=== PATIENT | female | born 1955 | race Caucasian/White ===

== ENCOUNTER → 2018-06-18 12:00 | Outpatient (CLI) | payer BC, SELFPAY ==
--- NOTE | 2018-06-18 12:06 | RAD_ITS ---
STUDY: X-RAY - CERVICAL SPINE REASON FOR EXAM: Female, 62 years old. neck pain, right arm pain since Sep 2017 TECHNIQUE: 5 view(s) of the cervical spine were obtained. COMPARISON: None FINDINGS: Normal anterior atlantoaxial articulation. Normal odontoid process. Normal cervical lordosis. There is multi-level endplate spondylosis. Normal disc space heights. There is multi-level osseous foraminal stenosis. The soft tissue structures are unremarkable. RAD/Cerv Spine 4 or 5 Views IMPRESSION: There is multi-level osseous foraminal stenosis. Electronically Signed: Darren Ortega MD at 17:14 EDT , Service support ,
== END ==
PROVIDERS: Family Provider Internal Medicine; PCP Internal Medicine; Referring Provider Chiropractor; Visit Provider Chiropractor
DX: S13.4XXA Sprain of ligaments of cervical spine, initial encounter (principal); X58.XXXA Exposure to other specified factors, initial encounter; M48.02 Spinal stenosis, cervical region; M47.892 Other spondylosis, cervical region
CPT/HCPCS: 72050

== ENCOUNTER 2018-08-01 12:30 | Outpatient (RCR) | payer BC, SELFPAY ==
--- NOTE | 2018-07-10 17:11 | HP.PTEVAL_ITS ---
Patient's Visit Information DMITRY CHÁVEZ is a 62 year old F referred to Physical Therapy by SANA ADAME with a diagnosis of cervical radicuolpathy. Date of Evaluation: 07/10/18 Physical Therapist: Christina Villarreal - Visit Plan Frequency: 2x /Week Duration: 4 Weeks Plan: 2X/ week for 4 weeks for c-spine MT to decrease trigger points, c-spine AROM, C-spine stretching, suboccip release, c-spine traction with HEP and modalities as needed - Subjective Subjective: Pt has been having a pain on the R side of neck and starts at base of neck and up the head and down the arm to her fingers ( feels heavy) and her arm sometimes feels weak. She is having FAGAN everyday all day. Her FAGAN is on the R side of her head. This all started in the neck in Sep and has been nagging since then. In April it got a lot worse. It is always worse when she goes to lay down and can not get comfortable (it is imediately when she lays down). She had an x-ray of the c-spine. She has tried numerous pillows and has a my pillow that is full of ajustable foam. She thinks that she sleeps with head in a flexed position. She gets up 2-3 X/ night cause her neck is killing her. It goes down into her R hand everyday at some point but does not stay for a long time. Sometimes her R eye is a little blurry. Will possibly get an MRI. - Pain Neck pain Pain Intensity (Out of 10): 5 R arm pain Pain Intensity (Out of 10): 0 - Objective c-spine AROM: flexion 100%, ext 50%, R Rot 60% and L Rot 85%, and R SB 75% and L SB 90%. Posture: sits with upright posture during treatment sessions. Bicep reflex 2+/3. UE AROM: full ROM B UE's. UE MMT: flexion B 4-/5, abd B 4-/5, ER B 4-/5, IR B 4/5. Palpation: Tender over the R side paraspinals of the c- spine and occiput and B mid trap region with multiple areas of tight knots felt. Pt had improved ROM with some sub occipital relase and some c-spine distraction - Goals Goal 1:: I HEP Goal Time Frame: 2-4 Weeks Goal 2:: Increase c-spine AROM to 100% all planes with no pain Goal Time Frame: 2-4 Weeks Goal 3:: Be able to lay down to sleep at night without pain Goal Time Frame: 2-4 Weeks Goal 4:: Increase UE MMT by 1/2 muscle grade (shoulder MMT at time of eval: flexion B 4-/5, abd B 4-/5, ER B 4-/5, IR B 4/5). Goal Time Frame: 4-6 Weeks - Rehabilitation Potential Rehabilitation Potential: Good - Anticipated Interventions Patient/Client Instruction: Educate patient on: Condition, Plan of Care For the Purpose of:: To decrease pain, To increase ROM, To improve nutrient delivery to tissue, To improve muscle performance and motor function, To in crease tolerance to activity/condition/position, To improve health of tissue, To decrease soft tissue restriction, To increase flexibility/ROM Therapeutic Exercise to Include: Strength training, Postural training, Flexibilty training, Passive ROM, Active ROM, Scapular Strength/Stabilization For the Purpose of:: To decrease pain, To decrease swelling/inflammation, To increase ROM, To improve nutrient delivery to tissue, To increase oxygenation perfusion, To improve ability to perform ADL's, To increase tolerance to activity/condition/position, To decrease level of supervision to perform tasks, To improve health of tissue, To decrease soft tissue restriction, To increase flexibility/ROM Manual Therapy Techniques to Include: Passive ROM, Functional dry needling, Soft tissue mobilization For the Purpose of:: To decrease pain, To increase ROM, To improve nutrient delivery to tissue, To increase oxygenation perfusion, To improve muscle performance and motor function, To improve ability to perform ADL's, To increase tolerance to activity/condition/position, To improve health of tissue, To d ecrease soft tissue restriction, To increase flexibility/ROM Thermo therapy (hot pack): Yes Ultrasound (thermal/non thermal): Yes For the Purpose of:: To decrease pain, To increase ROM, To improve nutrient delivery to tissue, To improve muscle performance and motor function Thank you for the opportunity to evaluate your patient. For Medicare and Medicare HMO plans, please review the plan of care and approve it. It will need to be FAXED BACK to us at [phone] for Medicare purposes. Please let me know if there are questions or concerns regarding this plan of care. Physician Signature: Date:
--- NOTE | 2018-12-30 09:28 | HP.PT.NRP ---
HP - Discharge Summary (1) - Patient Information DMITRY CHÁVEZ was seen in my office for initial evaluation on 07/10/18. The following Plan of Care was established for this patient: Initial Frequency: 2x /Week Initial Duration: 4 Weeks - Anticipated Interventions Patient/Client Instruction: Educate patient on: Condition, Plan of Care For the Purpose of:: To decrease pain, To increase ROM, To improve nutrient delivery to tissue, To improve muscle performance and motor function, To increase tolerance to activity/condition/position, To improve health of tissue, To decrease soft tissue restriction, To increase flexibility/ROM Therapeutic Exercise to Include: Strength training, Postural training, Flexibilty training, Passive ROM, Active ROM, Scapular Strength/Stabilization For the Purpose of:: To decrease pain, To decrease swelling/inflammation, To increase ROM, To improve nutrient delivery to tissue, To increase oxygenation perfusion, To improve ability to perform ADL's, To increase tolerance to activity/condition/position, To decrease level of supervision to perform tasks, To improve health of tissue, To decrease soft tissue restriction, To increase flexibility/ROM Manual Therapy Techniques to Include: Passive ROM, Functional dry needling, Soft tissue mobilization For the Purpose of:: To decrease pain, To increase ROM, To improve nutrient delivery to tissue, To increase oxygenation perfusion, To improve muscle performance and motor function, To improve ability to perform ADL's, To increase tolerance to activity/condition/position, To improve health of tissue, To decrease soft tissue restriction, To increase flexibility/ROM Thermo therapy (hot pack): Yes Ultrasound (thermal/non thermal): Yes For the Purpose of:: To decrease pain, To increase ROM, To improve nutrient delivery to tissue, To improve muscle performance and motor function This patient was last seen in our office 08/06/18. Pertinent comments regarding their Physical therapy will appear below: will DC PT at this time At this point I will be discontinuing this patient from physical therapy. I would be happy to see this patient again in the future if found appropriate by the physician. Thank you! Christina Villarreal, MPT
== END 2018-08-01 19:00 | disposition home or self-care (01) ==
LOC: PT 12:30
PROVIDERS: Family Provider Internal Medicine; PCP Internal Medicine
DX: M54.12 Radiculopathy, cervical region (principal)
CPT/HCPCS: 97035; 97110; 97140; 97161; 97530

== ENCOUNTER → 2018-09-05 10:42 | Outpatient (CLI) | payer BC, SELFPAY ==
[2015-11-27 04:40] VITALS: BMI 21.0
[2018-09-05 12:02] LABS: Absolute Lymphocyte Count 1.69 X10^3/ul (0.83-4.51); Absolute Neutrophil Count 3.8 X10^3/uL (2.0-7.7); Basophil# 0.02 X10^3/uL; Basophil% 0.3 % (0-1); Eosinophil# 0.11 X10^3/uL; Eosinophils% 1.8 % (0-5); Hematocrit 37.5 % (37-47); Hemoglobin 12.4 g/dl (12.0-15.0); Lymphocyte # 1.69 X10^3/ul (4.0); Mean Corp Hgb Conc 33.1 g/gl (32-36); Mean Corpuscular Hgb 31.2 pg (27.0-32.0); Mean Corpuscular Volume 94.5 fL (81-99); Monocyte# 0.43 X10^3/uL; Monocyte% 7.1 % (0-10); Neutrophil # 3.77 X10^3/uL (2.7-7.7); Neutrophil % 62.6 % (47-70); Platelet Count 253 K/mm3 (150-450); RBC Distribution Width CV 12.4 % (11.6-14.6); Red Blood Count 3.97 M/mm3 (4.2-5.4)
[2018-09-05 12:07] LABS: POSITIVE COUNT NO; POSITIVE DIFFERENTIAL NO; POSITIVE MORPHOLOGY NO
--- OUTSIDE RECORDS SUMMARY | 2018-10-22 05:42 | XMS RPT_ITS ---
:1955 Author Organization OHIP Care Team Providers Name Role Phone CARLIE FERMIN (ROSS) Referring Unavailable CARLIE FERMIN (ROSS) Attending Unavailable DEMETRIUS JENKINS Attending Unavailable DEMETRIUS JENKINS Referring Unavailable Cady, Corie Primary Care Unavailable Allen Bae Attending Unavailable Allen Bae Referring Unavailable Cady, Corie Primary Care Unavailable CARLA MELVIN Attending Unavailable CARLA MELVIN Referring Unavailable Cady, Corie Primary Care Unavailable PROBLEMS PROBLEMS DATE TYPE CONDITION / CODE ATTENDING STATUS SOURCE 09/05/2018 Unknown D64.9 - Anemia, DEMETRIUS JENKINS Active [place] unspecified / Community D64.9(ICD-10) Hospital Repository 08/01/2018 Unknown M54.12 - CARLA MELVIN Active [place] Radiculopathy, [facility] cervical region / Hospital M54.12(ICD-10) Repository 07/16/2018 Active Encounter for NA Active [facility] screening [facility] [place] mammogram for Repository malignant neoplasm of breast / Z12.31(ICD-10) PROCEDURES PROCEDURES No Procedure Records FoundRESULTS RESULTS CBC W/DIFF, AUTOMATED Collected: 09/05/2018 Status: F Source: [place] 10:52 AM [facility] REPOSITORY TYPE CODE TESTS RESULT OUT OF RANGE REFERENCE UNITS LAB L100.1000 4.4-11.0 K/mm3 Normal WBC 6.0 LAB L100.1200 4.2-5.4 M/mm3 Low RBC 3.97 LAB L100.1300 12.0-15.0 g/dl Normal HGB 12.4 LAB L100.1400 37-47 % Normal HCT 37.5 LAB L100.1500 81-99 fL Normal MCV 94.5 LAB L100.1600 27.0-32.0 pg Normal MCH 31.2 LAB L100.1700 32-36 g/gl Normal MCHC 33.1 LAB L100.1810 11.6-14.6 % Normal RDW CV 12.4 LAB L100.1820 35.1-43.9 fl Normal RDW SD 42.0 LAB L100.1900 150-450 K/mm3 Normal PLT 253 LAB L100.2000 6.2-12.0 fl Normal MPV 11.0 LAB L100.2100 47-70 % Normal NEUT% 62.6 LAB L100.2200 19-41 % Normal LY% 28.0 LAB L100.2300 0-10 % Normal MONO% 7.1 LAB L100.2400 0-5 % Normal EO% 1.8 LAB L100.2500 0-1 % Normal BASO% 0.3 LAB L100.2550 0.0-0.9 % Normal IM GRAN % 0.200 Result Comment: IG% - Immature Granulocytes (promyelocytes, myelocytes and metamyelocytes) > 1% indicates that a LEFT SHIFT is Present. LAB L100.2620 2.0-7.7 X10 3/uL Normal Absolute Neut 3.8 LAB L100.2720 0.83-4.51 X10 3/ul Normal Absolute Lymph 1.69 Performed By: #### L100.0100 #### [facility] [address] [place] [address], [id number] CNCO Observed: 07/16/2018 Status: COMPLETED Source: [place] 11:21 AM [facility] REPOSITORY O ID: [id number] Author: Mammography Coordinator Service: (none) Author Type: Physician Type: Letter Filed: 07/17/2018 11:32 PM Note Text: July 16, 2018 PID: [id number] Sarah Staley [address] [place] [id number] Dear Ms. Staley, We are pleased to inform you that the results of your recent breast imaging exam on 07/16/2018 are normal. Your mammogram demonstrates that you have dense breast tissue, which could hide abnormalities. Dense breast tissue, in and of itself, is a relatively common condition. Therefore, this information is not provided to cause undue concern; rather, it is to raise your awareness and promote discussion with your health care provider regarding the presence of dense breast tissue in addition to other risk factors. Early detection of cancer is very important. We also understand recommendations regarding breast cancer screening are controversial. Please discuss with your primary care provider which strategy is best for you and whether a mammogram is right for you. Your imaging studies and report will be kept on file at [facility] as part of your permanent medical record and are available for your continuing care. Thank you for allowing us to help in meeting your health care needs. Sincerely, Dr. Chaidez Interpreting Radiologist [facility] (Normal over 40) GWENDOLYN Observed: 07/16/2018 Status: COMPLETED Source: [place] 11:15 AM [facility] REPOSITORY Office Visit (WOOB) SARAH STALEY ([id number]) 1955 F Date Time Provider Department 07/16/18 11:15 AM CARLIE FEMRIN ([facility]) WOANDREE During your visit today, we recorded the following information about you: Blood pressure Weight Height 102/62 52.6 kg 1.56 m Carlie Fermin APRN.CNM 07/16/2018 12:11 PM Signed Management Consultant offered: Patient declines. Sarah Staley is a 62 year old who presents for her annual gynecologic exam without complaints. Postmenopausal: Yes since age 50 (Hysterectomy in 2006) HRT use: No. Last Pap: 2017 normal HPV: 2017 negative History of abnormal pap: No Last mammogram: 2018 Done today 07/16/2018 History of abnormal mammogram: No Patient is not currently sexually active and denies history of STI's Insomnia: Yes, improving since correction in november 2017 Vasomotor symptoms: Denies Vaginal Dryness: Denies Night Sweats: Denies Exercise: Patient does not exercise at this time Diet: regular Seatbelt use: Yes Obstetric History T1 L1 SAB0 TAB0 Ectopic0 Multiple0 Live Births0 Comment: 2 grandsons PAST MEDICAL HISTORY Diagnosis Date - Allergic rhinitis due to other allergen - Generalized anxiety disorder - Irritable bowel syndrome resolved with lap miguel - Migraines - Mitral valve disorders(424.0) trivial - Osteoarthritis 10/20/2010 - Osteoporosis 10/20/2010 zipper trimmer treats - Schatzki's ring PAST SURGICAL HISTORY Procedure Laterality Date - APPENDECTOMY - CARPAL TUNNEL 2013 - CHOLECYSTECTOMY 11/2008 - COLONOSCOP W/ OR W/O [facility] SPEC 04/22/2014 Colonoscopy - COLONOSCOP W/ OR W/O [facility] SPEC 06/04/2017 Repeat 5 years - COLONOSCOPY - EGD W/O OR W/BRUSH/WASH 04/22/2014 EGD - EGD W/O OR W/BRUSH/WASH 02/11/2015 EGD - LIGATE FALLOPIAN TUBE Tubal ligation - ID ANESTH,SURGERY OF SHOULDER spur - REMOVAL ADENOIDS,PRIMARY,<12 Y/O Adenoidectomy - REMOVAL OF TONSILS,<12 Y/O Tonsillectomy - TOTAL ABDOM HYSTERECTOMY/BSO 05/15/2006 bleeding/cervix remains FAMILY HISTORY Problem Relation Age of Onset - Cancer Mother KIDNEY/brain ca dx 10-11-05 - Diabetes Father - Cancer Father STOMACH - Cancer Maternal Aunt brain - Cancer Maternal Aunt brain - Cancer Maternal Aunt lung - Cancer Maternal Aunt colon - Cancer Maternal Aunt liver - Cancer Other Maternal Cousin, Bone - Cancer Brother Lymphoma SOCIAL HISTORY Social History Substance Use Topics - Smoking status: Former Smoker Packs/day: 0.10 Years: 3.00 Quit date: 09/24/1984 - Smokeless tobacco: Never Used - Alcohol use No REVIEW OF SYSTEMS Abdomen: No abdominal pain, nausea, vomiting, diarrhea, or constipation. No bloating, early satiety, indigestion, or increased flatulence. Bladder: No dysuria, gross hematuria, urinary frequency, urinary urgency, or incontinence Breast: No breast lumps, nipple d/c, overlying skin changes, redness or skin retraction Allergies and current medication updated:Yes EXAM: BP 102/62 Ht 5' 1.417 (1.56m) Wt 116 lb (52.6kg) LMP 05/12/2006 BMI 21.62 kg/(m2). GENERAL: pleasant, female in no apparent distress HEENT: Normocephalic, atraumatic, mucus membranes moist and no lesions NECK: Supple, full range of motion, no adenopathy and thyroid normal DERMATOLOGY: Normal, without lesions, non-icteric, non-hirsute and warm BREAST: soft, non-tender, symmetric, no dominant mass, normal nipple-areolar complex, no lymphadenopathy and no nipple discharge CHEST: Clear to auscultation Normal inspiratory effort Regular rate and rhythm ABDOMEN: Benign PELVIC: external genitalia normal, normal Bartholin's glands, urethra, [place]'s glands, no vulvar lesions, no cervical lesions, good vaginal support, physiologic discharge present, normal appearing perineal body and perianal region, atrophic changes to the vaginal jones and cervix BIMANUAL: no adnexal masses, non-tender, no cervical motion tenderness and uterus surgically absent RECTOVAGINAL: rectovaginal exam negative for any masses or nodularity. NEURO: alert and oriented x3,exam grossly non-focal EXTREMITIES: normal ASSESSMENT/PLAN: 1) Health maintenance: Next PAP in 2020 at age 65 2) Mammogram up to date (07/16/2018) 3) Follow up one year or sooner as needed Kallie King Apn Student TEACHING ABBY NOTE OF PERSONAL INVOLVEMENT IN CARE: I have personally seen and examined the patient and performed the medical decision-making components. I have reviewed the midwifery student documentation and verified the findings in the note as written. Any additions or changes are noted in bold/italics. Signature: Carlie Fermin APRN.CNM Date: 07/16/2018 Time: 12:09 PM MARSHALL Purdy APRN.CNM 07/16/2018 12:11 PM Signed ACOG Screening Guidelines (2015) The following health screening schedule is recommended by the [employer] (ACOG). Some of these tests may be ordered or performed by your primary care doctor. Pap test screening The pap test looks at cells on the cervix (the opening from the vagina to the uterus) to look for cancer or pre-cancerous changes. These changes are caused by the human papillomavirus (HPV). Studies estimate that half of all women will test positive for this virus within 3 years of starting sexual activity. For young women with a normal immune system, 90% of HPV infections will resolve within 2 years. There is a vaccine available against some forms of HPV. This is recommended for girls and women age 9-26 and is a series of 3 injections over 6 months. Because this vaccine does not protect against all HPV types which can cause cervical cancer, women who received the vaccine still need pap tests. Pap smear screening should be started at age 21. The pap test should be done every 3 years from age 21-29. From age 30-65, pap smears can be done every 5 years if HPV test is negative or every 3 years if HPV testing is not done. For women over the age of 65, ACOG recommends against screening women who have had adequate prior screening and are not otherwise at high risk for cervical cancer. Women who have had a hysterectomy also do not need routine pap smear screening unless the pap smear was done for a cervical cancer or moderate to severe dysplasia. Breast cancer screening Mammogram should be performed every 1-2 years starting at age 40 and every year starting at age 50. Screening may be started earlier depending on family history. Cholesterol screening Lipid panel (cholesterol test) should be checked every 5 years starting at age 45. Diabetes screening Fasting glucose (blood sugar) test should be performed every 3 years starting at age 45. Colorectal cancer screening Starting at age 50, women should have a screening colonoscopy at least every 10 years. Screening may be started earlier depending on family history. Thyroid screening Thyroid function test (TSH) should be checked every 5 years starting at age 50. Bone mineral density screening All postmenopausal women age 65 and over and postmenopausal women with risk factors for osteoporosis should have a bone mineral density test performed. Risk factors include race, family history of osteoporosis, personal history of fractures, poor nutrition, smoking, heavy alcohol use, early menopause, low calcium intake and low body weight. Certain medical conditions and long-term use of some medications may also increase risk. Referring Provider: SELF [[id number]] Allergies As of Date: 07/16/2018 (No Known Allergies) Date Reviewed: 07/16/2018 Reviewed by: Carlie Fermin - Fully Assessed Reason for Visit: Yearly Exam [187] Primary Visit Diagnosis:Encounter for gynecological examination (general) (routine) without abnormal findings [Z01.419] Other Visit Diagnosis:Visit for screening mammogram [Z12.31] Order(s):[facility] [[id number]] Order #: [id number] FUTURE Prescriptions as of 07/16/2018 Sig: * CELEBREX ORAL Take 1 capsule by mouth once * * ZOLOFT 50 MG TABLET Take one(1) tablet daily. * THERAPEUTIC MULTIVITAMIN TABL* Take one(1) tablet daily. * CALTRATE-600 PLUS VITAMIN D3 * Take one(1) tablet daily. TEMAZEPAM 7.5 MG CAPSULE Take 7.5 mg by mouth at bedti* HYOSCYAMINE 0.125 MG SUBLINGU* Dissolve 0.125 mg under the t* DICYCLOMINE 20 MG TABLET Take 20 mg by mouth four time* Problem List As Of Date 07/16/2018 Noted Resolved GENERALIZED ANXIETY DIS [F41.1] IRRITABLE COLON [K58.9] ALLERGIC RHINITIS NEC [J30.89] Mixed hyperlipidemia [E78.2] INVALID FOR*10/23/2011 Allergic rhinitis, cause unspecified [J30.9] INVALID FOR*10/23/2011 Migraine NOS/intractable [G43.919] INVALID FOR*10/23/2011 Osteoporosis [M81.0] INVALID FOR* Osteoarthritis [M19.90] INVALID FOR* Dysphagia, unspecified(787.20) [R13.10] INVALID FOR* History of colonic polyps [Z86.010] INVALID FOR* More... Other instructions from your clinician: ACOG Screening Guidelines (2015) The following health screening schedule is recommended by the [employer] (ACOG). Some of these tests may be ordered or performed by your primary care doctor. Pap test screening The pap test looks at cells on the cervix (the opening from the vagina to the uterus) to look for cancer or pre-cancerous changes. These changes are caused by the human papillomavirus (HPV). Studies estimate that half of all women will test positive for this virus within 3 years of starting sexual activity. For young women with a normal immune system, 90% of HPV infections will resolve within 2 years. There is a vaccine available against some forms of HPV. This is recommended for girls and women age 9-26 and is a series of 3 injections over 6 months. Because this vaccine does not protect against all HPV types which can cause cervical cancer, women who received the vaccine still need pap tests. Pap smear screening should be started at age 21. The pap test should be done every 3 years from age 21-29. From age 30-65, pap smears can be done every 5 years if HPV test is negative or every 3 years if HPV testing is not done. For women over the age of 65, ACOG recommends against screening women who have had adequate prior screening and are not otherwise at high risk for cervical cancer. Women who have had a hysterectomy also do not need routine pap smear screening unless the pap smear was done for a cervical cancer or moderate to severe dysplasia. Breast cancer screening Mammogram should be performed every 1-2 years starting at age 40 and every year starting at age 50. Screening may be started earlier depending on family history. Cholesterol screening Lipid panel (cholesterol test) should be checked every 5 years starting at age 45. Diabetes screening Fasting glucose (blood sugar) test should be performed every 3 years starting at age 45. Colorectal cancer screening Starting at age 50, women should have a screening colonoscopy at least every 10 years. Screening may be started earlier depending on family history. Thyroid screening Thyroid function test (TSH) should be checked every 5 years starting at age 50. Bone mineral density screening All postmenopausal women age 65 and over and postmenopausal women with risk factors for osteoporosis should have a bone mineral density test performed. Risk factors include race, family history of osteoporosis, personal history of fractures, poor nutrition, smoking, heavy alcohol use, early menopause, low calcium intake and low body weight. Certain medical conditions and long-term use of some medications may also increase risk. Disposition: Return in 1 year (on 07/16/2019), or if symptoms worsen or fail to improve, for Annual Exam. Follow-up and Disposition History Recorded Encounter Status:Closed by CARLIE FERMIN CNM on 07/16/18 [facility] Observed: 07/16/2018 Status: F Source: [place] 10:47 AM [facility] REPOSITORY * * *Final Report* * * DATE OF EXAM: Jul 16 2018 10:47AM WOW [id number] - [facility] / PROCEDURE REASON: Encounter for screening mammogram for malignant neoplasm of breast * * * * Physician Interpretation * * * * RESULT: #[id number] - [facility] BILATERAL DIGITAL SCREENING MAMMOGRAM WITH CAD: 07/16/2018 HISTORY: Encounter For Screening Mammogram For Malignant Neoplasm Of Breast /Screening Mammogram - patient reports NO breast symptoms /Priors available for comparison. RESULT: TECHNIQUE: The study was acquired using full field digital technology and interpreted from soft copy. Current study was also evaluated with a Computer Aided Detection (CAD). Comparison is made to exams dated: 07/10/2017 mammogram, 05/17/2016 mammogram, 02/17/2015 mammogram, and 12/23/2013 mammogram - [facility]. The tissue of both breasts is heterogeneously dense. This may lower the sensitivity of mammography. No significant masses, calcifications, or other findings are seen in either breast. There has been no significant interval change. IMPRESSION: NEGATIVE There is no mammographic evidence of malignancy.A 1 year screening mammogram is recommended. Adam bedoya/josh:07/16/2018 11:21:14 [employer] Post Officer: Karen THRASHER (R)(Tr), [facility] letter sent: Normal over 40 Mammogram BI-RADS: 1 Negative Multiple national specialty organizations have released breast cancer screening guidelines for women at average risk for developing breast cancer - guidelines that are based on both evidence and opinion, yet differ on when to start and how often to screen for breast cancer. With representation from Breast Imaging, Internal Medicine, Women's Health, Family Medicine, and Medical/Surgical Oncology, the [facility] has carefully reviewed the data and reached the following consensus: 1) All women should engage in shared decision-making with their providers to decide when to start and how often to screen; 2) All women should have the opportunity to start screening mammography at age 40; 3) For women ages 45-55, we recommend annual screening mammograms; 4) For women ages 55 and over, we support both the transition from an annual to a biennial interval if this aligns more with patient's values and preferences, or continuation with annual screening; 5) All women should discuss with their providers when to stop screening mammograms. Tray Worker: Josh Transcribe Date/Time: Jul 16 2018 10:30A Dictated by: ADAM CHAIDZE MD This examination was interpreted and the report reviewed and electronically signed by: ADAM CHAIDEZ MD on Jul 16 2018 11:21AM EST [id number] Observed: 07/16/2018 Status: COMPLETED Source: [place] 10:46 AM [facility] REPOSITORY HNO ID: [id number] Author: Carlie Fermin Service: (none) Author Type: Maintenance Repairman Type: Progress Notes Filed: 07/16/2018 12:11 PM Note Text: Management Consultant offered: Patient declines. Sarah Staley is a 62 year old who presents for her annual gynecologic exam without complaints. Postmenopausal: Yes since age 50 (Hysterectomy in 2005) HRT use: No. Last Pap: 2016 normal HPV: 2017 negative History of abnormal pap: No Last mammogram: 2018 Done today 07/16/2018 History of abnormal mammogram: No Patient is not currently sexually active and denies history of STI's Insomnia: Yes, improving since correction in november 2017 Vasomotor symptoms: Denies Vaginal Dryness: Denies Night Sweats: Denies Exercise: Patient does not exercise at this time Diet: regular Seatbelt use: Yes Obstetric History T1 L1 SAB0 TAB0 Ectopic0 Multiple0 Live Births0 Comment: 2 grandsons PAST MEDICAL HISTORY Diagnosis Date - Allergic rhinitis due to other allergen - Generalized anxiety disorder - Irritable bowel syndrome resolved with lap miguel - Migraines - Mitral valve disorders(424.0) trivial - Osteoarthritis 10/20/2010 - Osteoporosis 10/20/2010 zipper trimmer treats - Schatzki's ring PAST SURGICAL HISTORY Procedure Laterality Date - APPENDECTOMY - CARPAL TUNNEL 2013 - CHOLECYSTECTOMY 11/2008 - COLONOSCOP W/ OR W/O [facility] SPEC 04/22/2014 Colonoscopy - COLONOSCOP W/ OR W/O [facility] SPEC 06/04/2017 Repeat 5 years - COLONOSCOPY - EGD W/O OR W/BRUSH/WASH 04/22/2014 EGD - EGD W/O OR W/BRUSH/WASH 02/11/2015 EGD - LIGATE FALLOPIAN TUBE Tubal ligation - ID ANESTH,SURGERY OF SHOULDER spur - REMOVAL ADENOIDS,PRIMARY,<12 Y/O Adenoidectomy - REMOVAL OF TONSILS,<12 Y/O Tonsillectomy - TOTAL ABDOM HYSTERECTOMY/BSO 05/15/2006 bleeding/cervix remains FAMILY HISTORY Problem Relation Age of Onset - Cancer Mother KIDNEY/brain ca dx 10-11-05 - Diabetes Father - Cancer Father STOMACH - Cancer Maternal Aunt brain - Cancer Maternal Aunt brain - Cancer Maternal Aunt lung - Cancer Maternal Aunt colon - Cancer Maternal Aunt liver - Cancer Other Maternal Cousin, Bone - Cancer Brother Lymphoma SOCIAL HISTORY Social History Substance Use Topics - Smoking status: Former Smoker Packs/day: 0.10 Years: 3.00 Quit date: 09/24/1984 - Smokeless tobacco: Never Used - Alcohol use No REVIEW OF SYSTEMS Abdomen: No abdominal pain, nausea, vomiting, diarrhea, or constipation. No bloating, early satiety, indigestion, or increased flatulence. Bladder: No dysuria, gross hematuria, urinary frequency, urinary urgency, or incontinence Breast: No breast lumps, nipple d/c, overlying skin changes, redness or skin retraction Allergies and current medication updated:Yes EXAM: BP 102/62 Ht 5' 1.417 (1.56m) Wt 116 lb (52.6kg) LMP 05/12/2006 BMI 21.62 kg/(m2). GENERAL: pleasant, female in no apparent distress HEENT: Normocephalic, atraumatic, mucus membranes moist and no lesions NECK: Supple, full range of motion, no adenopathy and thyroid normal DERMATOLOGY: Normal, without lesions, non-icteric, non-hirsute and warm BREAST: soft, non-tender, symmetric, no dominant mass, normal nipple-areolar complex, no lymphadenopathy and no nipple discharge CHEST: Clear to auscultation Normal inspiratory effort Regular rate and rhythm ABDOMEN: Benign PELVIC: external genitalia normal, normal Bartholin's glands, urethra, [place]'s glands, no vulvar lesions, no cervical lesions, good vaginal support, physiologic discharge present, normal appearing perineal body and perianal region, atrophic changes to the vaginal jones and cervix BIMANUAL: no adnexal masses, non-tender, no cervical motion tenderness and uterus surgically absent RECTOVAGINAL: rectovaginal exam negative for any masses or nodularity. NEURO: alert and oriented x3,exam grossly non-focal EXTREMITIES: normal ASSESSMENT/PLAN: 1) Health maintenance: Next PAP in 2020 at age 65 2) Mammogram up to date (07/16/2018) 3) Follow up one year or sooner as needed Kallei King Apn Student TEACHING CLAY PIGEON LOADER-CNM NOTE OF PERSONAL INVOLVEMENT IN CARE: I have personally seen and examined the patient and performed the medical decision-making components. I have reviewed the midwifery student documentation and verified the findings in the note as written. Any additions or changes are noted in bold/italics. Signature: Carlie Fermin APRN.CNM Date: 07/16/2018 Time: 12:09 PM Carlie Fermin APRN.CNM INITAL EVALUATION (1) Observed: 07/12/2018 Status: F Source: [place] - PT 2:15 PM [facility] REPOSITORY [facility] [address] [place], [place] [id number] Fax REHABILITATION SERVICES INITIAL EVALUATION MR#: [id number] Acct: [id number] Name: SARAH STALEY Rep #: [id number] : 1955 62 From: Christina Villarreal MPT Referring Dr.: Status: REG RCR Insurance: [facility] SELF PAY INSURANCE Patient's Visit Information SARAH STALEY is a 62 year old F referred to Physical Therapy by SANA ADAME with a diagnosis of cervical radicuolpathy. Date of Evaluation: 07/10/18 Physical Therapist: Christina Villarreal - Visit Plan Frequency: 2x /Week Duration: 4 Weeks Plan: 2X/ week for 4 weeks for c-spine MT to decrease trigger points, c-spine AROM, C-spine stretching, suboccip release, c-spine traction with HEP and modalities as needed - Subjective Subjective: Pt has been having a pain on the R side of neck and starts at base of neck and up the head and down the arm to her fingers ( feels heavy) and her arm sometimes feels weak. She is having FAGAN everyday all day. Her FAGAN is on the R side of her head. This all started in the neck in Sep and has been nagging since then. In April it got a lot worse. It is always worse when she goes to lay down and can not get comfortable (it is imediately when she lays down). She had an x-ray of the c-spine. She has tried numerous pillows and has a my pillow that is full of ajustable foam. She thinks that she sleeps with head in a flexed position. She gets up 2-3 X/ night cause her neck is killing her. It goes down into her R hand everyday at some point but does not stay for a long time. Sometimes her R eye is a little blurry. Will possibly get an MRI. - Pain Neck pain Pain Intensity (Out of 10): 5 R arm pain Pain Intensity (Out of 10): 0 - Objective c-spine AROM: flexion 100%, ext 50%, R Rot 60% and L Rot 85%, and R SB 75% and L SB 90%. Posture: sits with upright posture during treatment sessions. Bicep reflex 2+/3. UE AROM: full ROM B UE's. UE MMT: flexion B 4-/5, abd B 4-/5, ER B 4-/5, IR B 4/5. Palpation: Tender over the R side paraspinals of the c-spine and occiput and B mid trap region with multiple areas of tight knots felt. Pt had improved ROM with some sub occipital relase and some c-spine distraction - Goals Goal 1:: I HEP Goal Time Frame: 2-4 Weeks Goal 2:: Increase c-spine AROM to 100% all planes with no pain Goal Time Frame: 2-4 Weeks Goal 3:: Be able to lay down to sleep at night without pain Goal Time Frame: 2-4 Weeks Goal 4:: Increase UE MMT by 1/2 muscle grade (shoulder MMT at time of eval: flexion B 4-/5, abd B 4-/5, ER B 4-/5, IR B 4/5). Goal Time Frame: 4-6 Weeks - Rehabilitation Potential Rehabilitation Potential: Good - Anticipated Interventions Patient/Client Instruction: Educate patient on: Condition, Plan of Care For the Purpose of:: To decrease pain, To increase ROM, To improve nutrient delivery to tissue, To improve muscle performance and motor function, To increase tolerance to activity/condition/position, To improve health of tissue, To decrease soft tissue restriction, To increase flexibility/ROM Therapeutic Exercise to Include: Strength training, Postural training, Flexibilty training, Passive ROM, Active ROM, Scapular Strength/Stabilization For the Purpose of:: To decrease pain, To decrease swelling/inflammation, To increase ROM, To improve nutrient delivery to tissue, To increase oxygenation perfusion, To improve ability to perform ADL's, To increase tolerance to activity/condition/position, To decrease level of supervision to perform tasks, To improve health of tissue, To decrease soft tissue restriction, To increase flexibility/ROM Manual Therapy Techniques to Include: Passive ROM, Functional dry needling, Soft tissue mobilization For the Purpose of:: To decrease pain, To increase ROM, To improve nutrient delivery to tissue, To increase oxygenation perfusion, To improve muscle performance and motor function, To improve ability to perform ADL's, To increase tolerance to activity/condition/position, To improve health of tissue, To decrease soft tissue restriction, To increase flexibility/ROM Thermo therapy (hot pack): Yes Ultrasound (thermal/non thermal): Yes For the Purpose of:: To decrease pain, To increase ROM, To improve nutrient delivery to tissue, To improve muscle performance and motor function Thank you for the opportunity to evaluate your patient. For Medicare and Medicare HMO plans, please review the plan of care and approve it. It will need to be FAXED BACK to us at [phone] for Medicare purposes. Please let me know if there are questions or concerns regarding this plan of care. Physician Signature: Date: <Electronically signed by Christina Villarreal MPT> 07/12/18 1415 CC: SANA ADAME; Corie Lazar DO Signed For Medicare only, by signing this I certify the plan of care. Physicians Signature Date CERV SPINE 4 OR 5 Observed: 06/18/2018 Status: F Source: ANGELIQUE VIEWS 12:06 PM [facility] REPOSITORY [facility] Imaging Services [address] [place] [address] Cerv Spine 4 or 5 Views MR#: [id number] Acct: [id number] Name: SARAH STALEY Rep #: [id number] : 1955 F 62 From: Darren Ortega MD PCP: Corie Lazar DO Status: REG CLI Study: Cerv Spine 4 or 5 Views Date of Exam: 06/18/18 Exam# [id number] Ordering Dr: Allen Bae STUDY: X-RAY - CERVICAL SPINE REASON FOR EXAM: Female, 62 years old. neck pain, right arm pain since Sep 2017 TECHNIQUE: 5 view(s) of the cervical spine were obtained. COMPARISON: None FINDINGS: Normal anterior atlantoaxial articulation. Normal odontoid process. Normal cervical lordosis. There is multi-level endplate spondylosis. Normal disc space heights. There is multi-level osseous foraminal stenosis. The soft tissue structures are unremarkable. RAD/Cerv Spine 4 or 5 Views IMPRESSION: There is multi-level osseous foraminal stenosis. Electronically Signed: Darren Ortega MD at 17:14 EDT , Service support , CC: Allen Bae; Corie Lazar DO Tray Worker: Signed ALLERGIES ALLERGIES DATE TYPE / CODE NAME / CODE REACTION SEVERITY SOURCE 03/20/2014 Drug No Known Unknown [facility] Allergy/416 Allergies/F99709 Hospital 640207(SNOM 0388(RXNORM) Repository ED CT) Drug NO KNOWN [facility] Class/91041 ALLERGIES Main [place] 1003(SNOMED Repository CT) ENCOUNTERS ENCOUNTERS ADMIT/DISCHARGE ACCOUNT ADMITTING ENCOUNTER LOCATION SOURCE NUMBER CLASS 09/05/2018 [id number] [facility] ing:MTLAB Repository 08/01/2018 [id number] [facility] ing:PT Repository 07/16/2018/07/17/[id number] Repository 07/16/2018/07/16/[id number] Repository 06/18/2018 [id number] [facility] ing:RAD Repository PAYERS PAYERS ENCOUNTER GUARANTOR PAYER SUBSCRIBER SOURCE 09/05/2018 SARAH A [id number] Primary SARAH A LOWERDOB: Angelique ROMO Insurance:ANTHEMPolic [id number] [facility], y Number: [facility] [id number]: [id number] Repository Date:3669-26-86MH [address] () [address], [place] [address]BB: 09/05/2018 Secondary NOT GIVENUNK [place] Insurance:SELF PAY [facility]: Effective Repository Date:2018-09-05 08/01/2018 SARAH A [id number] Primary SARAH A LOWERDOB: Angelique ROMO Insurance:ANTHEMPolic [id number] [facility], y Number: [facility] [id number]: [id number] Repository Date:1175-83-26WX [address] () [address], [place] [address]SP: 08/01/2018 Secondary NOT GIVENUNK Angelique Insurance:SELF PAY [facility] Number: Effective Repository Date:2018-07-09 06/18/2018 SARAH A [id number] Primary SARAH A LOWERDOB: Angelique ROMO Insurance:ANTHEMPolic [id number] [facility], y Number: [facility] [id number]: [id number] Repository Date:2040-79-23[address] () [address], [place] [address]TJ: 06/18/2018 Secondary NOT GIVENUNK Angelique Insurance:SELF PAY [facility] Number: Effective Repository Date:2018-06-18
== END ==
PROVIDERS: Family Provider Internal Medicine; PCP Internal Medicine; Referring Provider Internal Medicine Rheumatology; Visit Provider Internal Medicine Rheumatology
DX: D64.9 Anemia, unspecified (principal)
CPT/HCPCS: 36415; 85025

== ENCOUNTER → 2018-12-13 13:54 | Outpatient (CLI) | payer BC, SELFPAY ==
[2018-12-12 14:35] VITALS: BMI 21.0
[2018-12-13 14:08] LABS: Bacteria 0 SEEN /hpf (None Seen); Mucous, Urine 0 SEEN /hpf (<or=2+); Red Blood Cells-Urine 0 SEEN /hpf (0-5); Squamous Epithelial Cells - UA 0 SEEN /hpf (5-10)
[2018-12-13 14:25] LABS: Color, Urine Yellow (Yellow); Glucose, Dipstick Normal (Normal); Ketone-Dipstick Negative (Negative); Leukocyte Esterase-Dipstick 500 /ul (Negative); Nitrite-Dipstick Negative (Negative); Occult Blood-Urine 150 /ul (Negative); Protein-Dipstick 30 mg/dl (Negative); Specific Gravity, Urine 1.005 (1.002-1.030); Urine Bilirubin Dipstick Negative (Negative); Urine Clarity Clear (Clear); Urine Urobilinogen Normal (Normal)
[2018-12-13 14:29] LABS: White Blood Cells >100 SEEN /hpf (0-5)
== END ==
PROVIDERS: Family Provider Internal Medicine; PCP Internal Medicine; Referring Provider Physician Assistant; Visit Provider Physician Assistant
DX: R35.0 Frequency of micturition (principal); R30.0 Dysuria
CPT/HCPCS: 81001; 87086; 87088; 87186

== ENCOUNTER 2020-04-04 14:09 | Emergency (ER) | payer OTHER, SELFPAY ==
[2018-12-12 14:35] VITALS: BMI 21.0
[2020-04-04 14:10] VITALS: BP 141/88; PULSE 123; RESP 21; TEMP 36.1; O2SAT 95; BMI 21.7
--- NOTE | 2020-04-04 14:11 | EKG12_ITS ---
Test Reason : Blood Pressure : / mmHG Vent. Rate : 098 BPM Atrial Rate : 098 BPM P-R Int : 124 ms QRS Dur : 094 ms QT Int : 360 ms P-R-T Axes : 060 001 045 degrees QTc Int : 459 ms Normal sinus rhythm Incomplete right bundle branch block Borderline ECG Confirmed by LOYD BAKER, HANNAH ([id number]), fan mail editor IRAIDA TURK ([id number]) on 04/05/2020 1:16:57 PM Referred By: MACIEJ Confirmed By:HANNAH HARP MD
[2020-04-04] MEDS: MethylPREDNISolone 125 MG/2 ML Vial IV (14:18)
[2020-04-04] MEDS: DiphenhydrAMINE 50 MG/ML Syringe 25 MG IV (14:18)
[2020-04-04] MEDS: Famotidine 200 MG/20 ML MDV 20 MG in 0.9% Normal Saline (Pres. free 8 ML 300 MG IV (14:27)
--- NOTE | 2020-04-04 14:28 | ED.DCSUM_ITS ---
History of Present Illness Chief Complaint: Allergic Reaction Detail of Chief Complaint: Done by 3 hornets or yellowjacket 30 minutes prior to arrival Informant: Patient, Significant Other Onset: Today Context: Sudden Onset Timing: Continuous Quality: Throat swelling, pruritic erythematous raised generalized rash Location: Throat and generalized Current Severity: Severe Maximum Severity: Severe Worsened by: Hymenoptera envenomation Relieved by: Nothing Associated Symptoms: Difficulty swallowing and paretic generalized erythematous blanching rash Narrative: Patient is a 64-year-old woman who presents after she was stung by either 3 hornets or 3 yellow jackets. She presents because of generalized erythematous rash. She has since developed swelling of her throat and difficulty swallowing. Patient states he was not able to lie back on the examination cot because she developed difficulty swallowing and became anxious. She sat up immediately. Patient denies prior allergy to yellow jackets or hornets. She has no food allergies. She has no allergies to medication. She denies history of coronary disease. She denies history of hypertension. She denies orthostatic symptoms. She denies nausea or vomiting. She denies wheezing. Prior similar symptoms: No Recent Illness/Hospitalization: No - Past Medical History (1) No significant past medical history Status: Acute Past Medical History - Allergies and Home Meds Allergies/Adverse Reactions: Allergies bee venom protein (honey bee) Allergy (Verified 04/04/20 14:12) Anaphylaxis Primary Care Physician: Corie Lazar DO [Primary Care Provider] - As Needed Prior records reviewed: No Past Medical History: None Surgical History: appendectomy, cholecystectomy Lives: With Family Smoking Status: Never smoker Alcohol: Rare Drugs: None Review of Systems General: Denies: Chills, Fever, Malaise Eyes: Denies: Visual changes - bilaterally, Blurred Vision - bilaterally ENT: Reports: Sore throat. Denies: Bilateral ear pain, Rhinorrhea Cardiovascular: Denies: Chest pain, Palpitations Respiratory: Reports: Dyspnea. Denies: Cough, Sputum, Dyspnea on exertion Gastrointestinal: Denies: Abdominal pain, Nausea, Vomiting, Diarrhea, Melena, Hematochezia Musculoskeletal: Denies: Myalgias, Arthralgias, Neck pain, Back pain, Swelling, Extremity Pain Skin: Reports: Rash. Denies: Abscess, Wounds Neurological: Denies: Headache, Weakness, Parasthesia Psych: Reports: Anxiety Endocrine: Denies: Polyuria, Polydipsia Hematologic: Denies: Easy bruising, Easy bleeding Allergy: Reports: Uticaria, Swelling of the mouth Physical Exam Vital Signs/Narrative: Vital Signs Temp Pulse Resp BP Pulse Ox 04/04/20 14:10 97 F L 123 H 21 H 141/88 H 95 Inital Vital Signs reviewed: Yes General: Well nourished, Well developed, Acute Distress Head: Normocephalic, Atraumatic Eyes: Perrl, EOMI. Negative for: Pale conjunctiva, Scleral icterus ENT: Moist mucous membranes, No rhinorrhea, TM's clear, - - There is no angioedema of the lips or tongue. There may be slight swelling of the uvula. Trachea is midline. There is harsh sounds with inspiration and expiration. There is no true stridor. There is no cervical lymphadenopathy. Neck: Supple, Nontender, No lymphadenopathy, No JVD Cardiovascular: Regular rhythm, No murmurs, Normal S1, Normal S2, Tachycardia Respiratory: No distress, CTA bilaterally, Chest nontender Abdomen: Soft, Nontender, Nondistended, Normal bowel sounds Rectal: Deferred Back: Nontender, Normal Inspection Extremities: Nontender, No edema Skin: No Trauma, Rash - Blanching erythematous generalized rash with urticaria.. Negative for: Cyanosis, Diaphoresis Neurological: Alert, Oriented x3, Cranial nerves II-XII grossly intact, Normal Strength, Normal Sensation, Normal Gait Psychological: - - Patient is anxious. Diagnostic/Tx/Re-eval - Rhythm Strip Rhythm Strip: Sinus Tach Rate: 126 Ectopy: None - EKG Initial EKG Interpretation: Sinus Rhythm - Sinus rhythm with a ventricular rate of 98. KS interval 124 ms. QRS duration 94 ms. QT duration 360 ms. Norman is normal. There is an RR prime in V1 and V2. Findings are suggestive of incomplete right bundle branch block. - Medical Decision Making And has a generalized anaphylactic reaction to hymenoptera envenomation. She was treated with epinephrine followed by IV Benadryl, Pepcid and Solu-Medrol. Patient and were informed that she would be observed for minimum 4 to 6 hours. Because most pharmacies in [place] close a 6 PM a prescription was written for appendectomy in the event that she is able to go home. Patient was reassessed at 1455. Patient is resting comfortably. The erythematous blanching generalized rash with urticaria has improved markedly 80 to 90%. There is no abnormal respiratory sounds with inspiration or expiration over the trachea. Patient's lips in retrospect were swollen. Her lips are much smaller at this point as well as her tongue. She had - Critical Care Time Critical care time (excluding procedures): 30-74 minutes, Discussing w/Patient &/or Family/Clay Modeler ED Disposition - Plan for ED Patient: Disposition: Home or Assisted Living Diagnosis: Anaphylaxis due to hymenoptera venom Instructions: ED BEE STING General Allergic Rxn Prescriptions: Prednisone [Deltasone] 40 mg PO DAILY #10 tab Transmission Status: Received by [id number] Epi Pen (for allergic rxn) 0.3 mg IM X1 #1 syringe Transmission Status: Pending to [id number] Famotidine [Pepcid] 20 mg PO BID #8 tab Transmission Status: Received by [id number] Referrals: Corie Lazar DO [Primary Care Provider] - As Needed
[2020-04-04 16:09] VITALS: BP 129/72; PULSE 91; RESP 18; O2SAT 99
--- NOTE | 2020-04-04 17:31 | ED.VIS.GEN ---
History of Present Illness Chief Complaint: Allergic Reaction Informant: Patient, Significant Other Past Medical History - Allergies and Home Meds Allergies/Adverse Reactions: Allergies bee venom protein (honey bee) Allergy (Verified 04/04/20 14:12) Anaphylaxis Primary Care Physician: Corie Lazar DO [Primary Care Provider] - As Needed Surgical History: appendectomy, cholecystectomy Lives: With Family Smoking Status: Never smoker Alcohol: Rare Drugs: None Physical Exam Vital Signs/Narrative: Vital Signs Temp Pulse Resp BP Pulse Ox 04/04/20 16:09 91 18 129/72 H 99 04/04/20 14:10 97 F L 123 H 21 H 141/88 H 95 Diagnostic/Tx/Re-eval - Rhythm Strip Rhythm Strip: Sinus Tach Rate: 126 Ectopy: None ED Disposition - Plan for ED Patient: Disposition: Home or Assisted Living Diagnosis: Anaphylaxis due to hymenoptera venom Instructions: ED BEE STING General Allergic Rxn Prescriptions: Prednisone [Deltasone] 40 mg PO DAILY #10 tab Transmission Status: Received by [id number] Epi Pen (for allergic rxn) 0.3 mg IM X1 #1 syringe Transmission Status: Received by [id number] Famotidine [Pepcid] 20 mg PO BID #8 tab Transmission Status: Received by [id number] Referrals: Corie Lazar DO [Primary Care Provider] - As Needed
[2020-04-04 18:05] VITALS: BP 134/77; PULSE 79; RESP 18; TEMP 36.8; O2SAT 98
== END 2020-04-04 18:17 | disposition home or self-care (01) ==
PROVIDERS: Emergency Provider Student in an Organized Health Care Education/Training Program; PCP Internal Medicine
DX: T63.441A Toxic effect of venom of bees, accidental (unintentional), initial encounter (principal); T78.2XXA Anaphylactic shock, unspecified, initial encounter; X58.XXXA Exposure to other specified factors, initial encounter
CPT/HCPCS: 93005; 96374; 96375; 99284; J7030; A4216; J3490

== ENCOUNTER 2020-04-05 16:55 | Emergency (ER) | payer OTHER, SELFPAY ==
[2020-04-04 14:10] VITALS: BMI 21.7
[2020-04-05 16:56] VITALS: BP 136/71; PULSE 90; RESP 17; TEMP 36.6; O2SAT 97; BMI 21.5
--- NOTE | 2020-04-05 17:19 | ED.VIS.GEN ---
History of Present Illness Chief Complaint: Allergic Reaction Informant: Patient Onset: Yesterday Current Severity: Mild Maximum Severity: Moderate Narrative: Patient presents secondary to lip swelling. She was seen in the ER yesterday after being stung by bees. She was discharged home with prescription for EpiPen, Pepcid, and prednisone. Patient states that her right hand still seems to be swollen today. She noted some redness across her chest and this afternoon she felt like her lips were swelling. She denies any tongue swelling or difficulty swallowing. She used her EpiPen approximate hour prior to arrival. Lips are improved at this time. - Past Medical History (1) No significant past medical history Status: Acute Past Medical History - Allergies and Home Meds Allergies/Adverse Reactions: Allergies bee venom protein (honey bee) Allergy (Verified 04/05/20 16:56) Anaphylaxis Primary Care Physician: Corie Lazar DO [Primary Care Provider] - Prior records reviewed: Yes Surgical History: appendectomy, cholecystectomy Lives: Spouse/ Significant Other Smoking Status: Never smoker Review of Systems General: Denies: Chills, Fever Eyes: Denies: Visual changes - bilaterally ENT: Denies: Bilateral ear pain Cardiovascular: Denies: Chest pain Respiratory: Denies: Dyspnea, Cough Gastrointestinal: Denies: Abdominal pain, Vomiting Genitourinary: Denies: Dysuria Musculoskeletal: Reports: Swelling. Denies: Extremity Pain Skin: Reports: Rash Neurological: Denies: Headache Hematologic: Denies: Easy bruising, Easy bleeding Allergy: Denies: Uticaria Physical Exam Vital Signs/Narrative: Vital Signs Temp Pulse Resp BP Pulse Ox 04/05/20 16:56 97.8 F 90 17 136/71 H 97 Inital Vital Signs reviewed: Yes General: Well nourished, Well developed Head: Normocephalic ENT: Moist mucous membranes, - - No lip edema noted at this time. Tongue is not edematous. Posterior pharynx exam is normal. Patient is speaking with a strong voice and tolerating secretions well. Neck: Supple Cardiovascular: Regular rate, Regular rhythm Respiratory: No distress, CTA bilaterally Abdomen: Soft, Nontender Extremities: Nontender Skin: - - Generalized erythema noted on the upper chest. Neurological: Alert, Oriented x3 Psychological: Normal affect Diagnostic/Tx/Re-eval - Medical Decision Making Patient was given Benadryl and Solu-Medrol here. She was observed for nearly 3 hours with no return of symptoms. She has not been taking Benadryl at home but states she will stop and get some on the way home tonight. She will be given a another prescription for an EpiPen since she will have one with her. ED Disposition - Plan for ED Patient: Disposition: Home or Assisted Living Diagnosis: Allergic reaction Instructions: ED BEE STING General Allergic Rxn Prescriptions: Epi Pen (for allergic rxn) 0.3 mg IM X1 PRN #1 syringe PRN Reason: Anaphylaxis Transmission Status: [id number] Referrals: Corie Lazar DO [Primary Care Provider] - 3-5 Days
[2020-04-05] MEDS: MethylPREDNISolone 125 MG/2 ML Vial 60 MG IV (17:51)
[2020-04-05] MEDS: DiphenhydrAMINE 50 MG/ML Syringe 25 MG IV (17:52)
[2020-04-05 18:44] VITALS: BP 112/68; PULSE 66; RESP 15; O2SAT 99
[2020-04-05 19:31] VITALS: BP 105/60; PULSE 72; RESP 16; O2SAT 98
[2020-04-05 19:44] VITALS: BP 105/60; PULSE 72; RESP 16; O2SAT 98
== END 2020-04-05 19:45 | disposition home or self-care (01) ==
PROVIDERS: Emergency Provider Emergency Medicine; PCP Internal Medicine
DX: T63.441A Toxic effect of venom of bees, accidental (unintentional), initial encounter (principal); M79.89 Other specified soft tissue disorders; L53.9 Erythematous condition, unspecified; Y92.9 Unspecified place or not applicable
CPT/HCPCS: 96374; 96375; 99285

== ENCOUNTER → 2020-07-29 09:27 | Outpatient (CLI) | payer OTHER, SELFPAY ==
--- NOTE | 2020-07-29 09:45 | RAD_ITS ---
PROCEDURE: Fluoroscopic guided right shoulder Injection DATE: 07/29/2020 INDICATION: Female, 64 years old. Chronic pain. PHYSICIAN: Jefferson Tuttle M.D. MEDICATIONS: 12 mg of PREDNISONE and 4 cc of 1% LIDOCAINE. 2% lidocaine administered subcutaneously for local anesthesia. ACCESS SITE: Right shoulder. NEEDLE: 22-gauge spinal needle. FLUOROSCOPY TIME (if supplied): (0:36) minutes/seconds FINDINGS: The risks, benefits, and alternatives to the procedure were explained to the patient. The specific risks of bleeding, infection, and neurovascular injury were detailed and accepted. Witnessed informed consent was obtained. A 22-gauge spinal needle was positioned under radiographic fluoroscopic localization . Approximately 2 cc of ISOVUE-300 instilled for localization purposes. Medication was then injected. The patient tolerated the procedure well without any immediate complications. RAD/Inj/Asp Tyrese Jt Should/Hip/Knee IMPRESSION: 1. Successful fluoroscopic guided right shoulder injection. Electronically Signed: Jefferson Tuttle, at 11:18 EST , Service support ,
== END ==
PROVIDERS: PCP Internal Medicine; Referring Provider Specialist; Visit Provider Specialist
DX: M75.41 Impingement syndrome of right shoulder (principal)
CPT/HCPCS: 20610; 77002; Q9965; J0702

== ENCOUNTER → 2020-09-23 13:40 | Outpatient (CLI) | payer OTHER, SELFPAY ==
--- NOTE | 2020-09-23 13:45 | BI_ITS ---
MAMMOGRAPHY - BILATERAL SCREENING REASON FOR EXAM: Female, 64 years old. Routine annual screening examination. PERTINENT HISTORY: Non-contributory. History of remote left breast aspiration. TECHNIQUE: Digital bilateral breast israel (3D mammographic acquisition) in the CC and MLO projections. 2-D mediolateral oblique (MLO) and craniocaudad (CC) views of both breasts were obtained. CAD: Full Field Digital Mammography with Computer Added Detection was performed. COMPARISON: Comparison is made with prior outside examination dated 06/04/2019. FINDINGS: Breast Composition: The breasts are extremely dense, which lowers the sensitivity of mammography. There are no dominant masses or suspicious calcifications. No other significant abnormalities are identified. There has been no significant change since the prior study. BI/SCREEN MAMM (CAD) W/ISRAEL BILAT IMPRESSION: Stable bilateral screening mammogram. Yearly follow-up mammogram recommended. (A) ASSESSMENT CATEGORY: BIRADS Category 1: Negative. A letter regarding these results will be sent to the patient by the facility within 30 days. Approximately 10% of breast cancers are not detected by mammography. A normal mammogram should not delay biopsy of a clinically suspicious abnormality. [id number] Electronically Signed: Jefferson Tuttle, at 11:22 EST , Service support ,
== END ==
PROVIDERS: PCP Internal Medicine; Referring Provider Nurse Practitioner Family; Visit Provider Nurse Practitioner Family
DX: Z12.31 Encounter for screening mammogram for malignant neoplasm of breast (principal)
CPT/HCPCS: 77063; 77067

== ENCOUNTER → 2021-04-14 11:33 | Outpatient (CLI) | payer MEDICARE, OTHER, SELFPAY ==
[2021-04-14 12:50] LABS: Erythrocyte Sedimentation Rate 8 mm/hr (0-30)
[2021-04-14 12:52] LABS: Absolute Lymphocyte Count 1.86 X10^3/uL (0.83-4.51); Absolute Neutrophil Count 4.5 X10^3/uL (2.0-7.7); Basophil# 0.04 X10^3/uL; Basophil% 0.6 % (0-1); Eosinophil# 0.18 X10^3/uL; Eosinophils% 2.5 % (0-5); Hematocrit 38.5 % (37-47); Hemoglobin 12.3 g/dL (12.0-15.0); Lymphocyte # 1.86 X10^3/ul (0.83-4.51); Lymphocyte % 26.3 % (19-41); Mean Corp Hgb Conc 31.9 g/dL (32-36); Mean Corpuscular Hgb 30.6 pg (27.0-32.0); Mean Corpuscular Volume 95.8 fL (81-99); Mean Platelet Vol. 11.2 fl (6.2-12.0); Monocyte# 0.47 X10^3/uL; Monocyte% 6.6 % (0-10); NRBC Flagged by Analyzer 0 % (0-5); Neutrophil # 4.49 X10^3/uL (2.7-7.7); Neutrophil % 63.6 % (47-70); Platelet Count 255 K/mm3 (150-450); RBC Distribution Width CV 12.6 % (11.6-14.6); RBC Distribution Width SD 44.3 fl (35.1-43.9); Red Blood Count 4.02 M/mm3 (4.2-5.4); White Blood Count 7.1 K/mm3 (4.4-11.0)
[2021-04-14 13:17] LABS: CRP 5.46 mg/L (0.0-3.0); Rheumatoid Factor < 10.0 IU/mL (<15); Uric Acid 4.2 mg/dL (2.6-6.0)
[2021-04-15 20:32] LABS: ANTINUCLEAR ANTIBODIES DIRECT Negative (Negative)
== END ==
PROVIDERS: PCP Internal Medicine; Referring Provider Podiatrist Foot & Ankle Surgery; Visit Provider Podiatrist Foot & Ankle Surgery
DX: R20.2 Paresthesia of skin (principal); M79.672 Pain in left foot
CPT/HCPCS: 36415; 84550; 85025; 85652; 86038; 86140; 86431

== ENCOUNTER → 2021-05-17 11:01 | Outpatient (CLI) | payer MEDICARE, OTHER, SELFPAY ==
--- NOTE | 2021-05-17 11:04 | RAD_ITS ---
STUDY: X-RAY - CERVICAL SPINE REASON FOR EXAM: Female, 65 years old. Other cervical disc degeneration, unspecified cervical region TECHNIQUE: 6 view(s) of the cervical spine were obtained. COMPARISON: Comparison is made with prior study dated 06/18/2015. FINDINGS: Normal anterior atlantoaxial articulation. Normal odontoid process. Normal cervical lordosis. Normal vertebral bodies and endplates. Mild degree of disc space narrowing at the C5-C6 level. Normal visualized intervertebral neuroforamina. The soft tissue structures are unremarkable. RAD/Cerv Spine Obl/Flex/Ext Comp IMPRESSION: Mild degree of disc space narrowing at the C5-C6 level. Electronically Signed: Jefferson Tuttle MD at 11:14 EDT , Service support ,
== END ==
PROVIDERS: PCP Internal Medicine; Referring Provider Anesthesiology Pain Medicine; Visit Provider Anesthesiology Pain Medicine
DX: M50.30 Other cervical disc degeneration, unspecified cervical region (principal)
CPT/HCPCS: 72052

== ENCOUNTER → 2021-06-15 13:06 | Outpatient (CLI) | payer MEDICARE, OTHER, SELFPAY ==
[2021-06-15 13:51] LABS: Absolute Lymphocyte Count 2.93 X10^3/uL (0.83-4.51); Basophil# 0.07 X10^3/uL; Basophil% 0.7 % (0-1); Eosinophil# 0.17 X10^3/uL; Eosinophils% 1.8 % (0-5); Hematocrit 42.1 % (37-47); Hemoglobin 13.5 g/dL (12.0-15.0); Lymphocyte # 2.93 X10^3/ul (0.83-4.51); Lymphocyte % 30.2 % (19-41); Mean Corp Hgb Conc 32.1 g/dL (32-36); Mean Corpuscular Hgb 30.4 pg (27.0-32.0); Mean Corpuscular Volume 94.8 fL (81-99); Mean Platelet Vol. 10.7 fl (6.2-12.0); Monocyte# 0.51 X10^3/uL; Monocyte% 5.3 % (0-10); NRBC Flagged by Analyzer 0 % (0-5); Neutrophil # 5.97 X10^3/uL (2.7-7.7); Neutrophil % 61.5 % (47-70); Platelet Count 352 K/mm3 (150-450); RBC Distribution Width CV 12.6 % (11.6-14.6); RBC Distribution Width SD 43.8 fl (35.1-43.9); Red Blood Count 4.44 M/mm3 (4.2-5.4); White Blood Count 9.7 K/mm3 (4.4-11.0)
[2021-06-15 14:35] LABS: ALB/GLOB Ratio 0.9 RATIO (0.9-2.4); AST(SGOT) 16 U/L (15-37); Alanine Aminotransfer ALT/SGPT 22 U/L (13-56); Albumin, Serum 3.6 g/dL (3.2-5.0); Alkaline Phosphatase 88 U/L (45-117); Anion Gap 4 (5-15); BUN 13 mg/dL (7-18); BUN/Creat Ratio 24.2 RATIO (10-20); Calcium,Total 9.3 mg/dL (8.5-10.1); Chloride 104 mmol/L (98-107); Creatinine, Serum 0.54 mg/dL (0.55-1.02); EST Glomerular Filtration Rate 121 mL/min (>60); Est Glom Filt Rate - Afr Amer 146 mL/min (>60); Globulin 4.1 g/dL (2.2-4.2); Glucose 133 mg/dL (74-106); Protein, Total 7.7 g/dL (6.4-8.2); Sodium Level 139 mmol/L (136-145); Thyroid Stim Hormone (TSH) 1.74 uIU/mL (0.358-3.74)
== END ==
PROVIDERS: PCP Internal Medicine; Visit Provider Internal Medicine
DX: R00.0 Tachycardia, unspecified (principal)
CPT/HCPCS: 36415; 80053; 84443; 85025

== ENCOUNTER → 2021-06-23 10:00 | Outpatient (CLI) | payer MEDICARE, OTHER, SELFPAY ==
--- NOTE | 2021-06-23 10:02 | ECHOD_ITS ---
Reason For Study: RBBB Procedure This was a 2D Doppler, Color Flow transthoracic echocardiogram. Exam performed in department. Left Ventricle Normal left ventricle. Left ventricular systolic function is normal. The estimated ejection fraction is 60 %. No regional wall motion abnormalities noted. Right Ventricle Normal RV size. Normal systolic function. Atria Normal left atrium. Normal right atrium. Mitral Valve Normal mitral valve. Trivial eccentric mitral valve insufficiency. Tricuspid Valve Normal tricuspid valve. Mild tricuspid valve insufficiency. Aortic Valve Trisinus/trileaflet aortic valve. Pulmonic Valve Normal pulmonic valve. Great Vessels Normal aortic root. The pulmonary artery is normal size. Normal inferior vena cava. Pericardium/Pleural No pericardial effusion. MMode/2D Measurements & Calculations LVIDd: 4.7 cm IVSd: 0.97 cm Ao root diam: 2.7 cm LVIDs: 2.9 cm LVPWd: 1.0 cm RVDd: 2.3 cm FS: 38.1 % LAV(MOD-bp): 27.4 ml LA A4 area: 11.4 cm2 LA dimension(2D): 2.9 cm LAV(MOD-bp) Indexed: 18.1 ml/m2 LAV(MOD-sp2): 26.8 ml LAV(MOD-sp4): 26.8 ml RA A4 area: 9.3 cm2 Time Measurements MV dec time: 0.19 sec Doppler Measurements & Calculations MV E max ian: 49.0 cm/sec Lat Peak E' Ian: 7.4 cm/sec Med Peak E' Ian: 6.3 cm/sec MV A max ian: 69.5 cm/sec E/E' lat: 6.6 E/E' med: 7.8 MV E/A: 0.71 Ao V2 max: 109.4 cm/sec LV V1 max: 91.8 cm/sec PA V2 max: 92.4 cm/sec Ao max P.8 mmHg LV V1 max P.4 mmHg TR max ian: 203.6 cm/sec TR max P.6 mmHg ECHO/Echo Complete Interpretation Summary Normal left ventricle. Left ventricular systolic function is normal. The estimated ejection fraction is 60 %. Mild tricuspid valve insufficiency. Ordering Physician: Corie Lazar Referring Physician: Corei Lazar Performed By: Ashleigh Kim RDCS, RVT
== END ==
PROVIDERS: PCP Internal Medicine; Referring Provider Internal Medicine; Visit Provider Internal Medicine
DX: R00.2 Palpitations (principal); I45.10 Unspecified right bundle-branch block
CPT/HCPCS: 93225; 93226; 93306

== ENCOUNTER 2021-07-06 02:18 | Emergency (ER) | payer MEDICARE, OTHER, SELFPAY ==
[2021-07-06 02:19] VITALS: BP 143/82; PULSE 74; RESP 18; TEMP 36.7; O2SAT 97; BMI 22.3
[2021-07-06 02:24] VITALS: O2SAT 99
--- NOTE | 2021-07-06 02:33 | EKG12_ITS ---
Test Reason : CP Blood Pressure : / mmHG Vent. Rate : 072 BPM Atrial Rate : 072 BPM P-R Int : 128 ms QRS Dur : 092 ms QT Int : 392 ms P-R-T Axes : 038 001 039 degrees QTc Int : 429 ms Normal sinus rhythm Normal ECG Confirmed by LOYD BAKER, HANNAH ([id number]), editor producer IRAIDA TURK ([id number]) on 07/12/2021 6:28:30 AM Referred By: MELISSA Confirmed By:HANNAH HARP MD
[2021-07-06 02:58] LABS: Absolute Lymphocyte Count 3.11 X10^3/uL (0.83-4.51); Absolute Neutrophil Count 3.9 X10^3/uL (2.0-7.7); Basophil# 0.04 X10^3/uL; Basophil% 0.5 % (0-1); Eosinophil# 0.23 X10^3/uL; Eosinophils% 2.9 % (0-5); Hematocrit 38.3 % (37-47); Hemoglobin 12.7 g/dL (12.0-15.0); Lymphocyte # 3.11 X10^3/ul (0.83-4.51); Lymphocyte % 39.1 % (19-41); Mean Corp Hgb Conc 33.2 g/dL (32-36); Mean Corpuscular Hgb 30.8 pg (27.0-32.0); Mean Platelet Vol. 10.2 fl (6.2-12.0); Monocyte# 0.67 X10^3/uL; Monocyte% 8.4 % (0-10); NRBC Flagged by Analyzer 0 % (0-5); Neutrophil # 3.88 X10^3/uL (2.7-7.7); Neutrophil % 48.7 % (47-70); Platelet Count 288 K/mm3 (150-450); RBC Distribution Width CV 12.8 % (11.6-14.6); RBC Distribution Width SD 43.9 fl (35.1-43.9); Red Blood Count 4.12 M/mm3 (4.2-5.4)
--- NOTE | 2021-07-06 03:03 | EX.ED.DYSGE1 ---
HPI History of Present Illness Chief Complaint: Palpitations Narrative Narrative: Patient is a 65-year-old female who states that she felt palpitations that woke her from sleep this evening. She states she is dealt with these over the past 4 to 5 months and recently had a Holter monitor study. She denies any new medications any excessive stimulant use or illicit drug use. She states that based on the return of the palpitations she was concerned and comes to the hospital for evaluation. She does state by the time she arrived to the hospital her symptoms have spontaneously resolved. She reports she cannot get in to see a supervisor tubing until September. [facility] Medical History Anemia Arthritis GERD (gastroesophageal reflux disease) history of spur removal Irregular heart beat Home Medications epinephrine 0.3 mg IM X1 #1 syringe 04/04/20 [Rx Last Taken Unknown] pantoprazole 40 mg PO BID 04/04/20 [History Last Taken Unknown] epinephrine 0.3 mg IM X1 PRN #1 syringe 04/05/20 [Rx Last Taken Unknown] celecoxib 200 mg PO DAILY 07/06/21 [History Last Taken Unknown] Allergy/AdvReac Type Severity Reaction Status Date / Time bee venom protein (honey bee) Allergy Anaphylaxis Verified 07/06/21 02:22 gabapentin Allergy DIZZY AND Verified 07/06/21 02:22 LIGHTHEADED Surgical History History of appendectomy History of hysterectomy Social History (Updated 12/12/18 @ 14:52 by Tremayne GARNER, PA) Smoking Status: Former smoker alcohol intake: never ROS ROS ED Constitutional Constitutional ED: Denies chills or fever(s) ENT ENT ED: Denies sore throat Cardiovascular Cardiovascular: Reports palpitations and racing heartbeat; Denies chest pain Respiratory/Chest Respiratory/Chest: Denies cough or dyspnea Gastrointestinal Gastrointestinal: Denies abdominal pain, diarrhea, nausea or vomiting Genitourinary Genitourinary ED: Denies dysuria Musculoskeletal Musculoskeletal: Denies myalgias Integumentary Denies rash Neurologic Neurologic: Denies headache(s) Hematologic/Lymphatic Hematologic/Lymphatic: Denies easy bleeding or easy bruising EXAM Physical Exam Const Vital Signs: 07/06/21 02:19 07/06/21 02:24 Temperature 98.1 F Temperature Source Temporal Pulse Rate 74 Respiratory Rate 18 Respiratory Effort Normal Non-Labored Blood Pressure 143/82 H Blood Pressure Mean 102 Pulse Ox 97 99 Oxygen Delivery Method Room Air Room Air Positive well nourished and well developed General Appearance ED: well developed HEENT Reports moist mucous membranes Eyes PERRL and EOMs intact bilaterally Neck supple Resp normal respiratory effort and clear to auscultation bilaterally Cardio regular rate and regular rhythm Rate: other Other Details: Radial pulses are +2/4 by letter there equal and symmetric GI normal to inspection, nondistended, normoactive bowel sounds, non-tender and non-distended GI Narrative: No voluntary guarding or rigidity no pulsatile mass Auscultation: normoactive bowel sounds Palpation: soft Extremity normal to inspection Extremity Narrative: No asymmetric edema no pitting edema negative home and sign bilaterally Neuro oriented x3 and CN's II-XII intact bilaterally Sensorium / Orientation: alert Motor Exam: strength 5/5 throughout Psych mental status grossly normal Skin no rashes or lesions noted MDM MDM MDM Narrative Medical decision making narrative: Patient presented to the ER with stable vitals and spontaneous resolution of her symptoms. With her report of palpitations a basic cardiac workup was obtained. Her lab work revealed no clinically significant findings and there is no signs of heart damage as her troponin was normal. The patient was kept on the heart monitor and remained in sinus rhythm for her ER stay. Therefore this time with a negative workup and patient maintaining normal sinus rhythm without any obvious dysrhythmia or ectopy noted there is no need for further evaluation and she is safe for discharge. Lab Data Attestation: I reviewed the patient's lab results. Labs: Laboratory Results - last 24 hr 07/06/21 07/06/21 02:20 02:20 WBC 8.0 RBC 4.12 L Hgb 12.7 Hct 38.3 MCV 93.0 MCH 30.8 MCHC 33.2 RDW Std Deviation 43.9 RDW Coeff of Osei 12.8 Plt Count 288 MPV 10.2 Immature Gran % (Auto) 0.400 Neut % (Auto) 48.7 Lymph % (Auto) 39.1 Parke % (Auto) 8.4 Eos % (Auto) 2.9 Baso % (Auto) 0.5 Absolute Neuts (auto) 3.9 Absolute Lymphs (auto) 3.11 Nucleated RBC % 0 Sodium 139 Potassium 3.9 Chloride 102 Carbon Dioxide 32.0 Anion Gap 5 BUN 14 Creatinine 0.65 Estim Creat Clear Calc 68.25 Est GFR (MDRD) Af Amer 118 Est GFR (MDRD) Non-Af 97 BUN/Creatinine Ratio 21.6 H Glucose 112 H Calcium 9.1 Magnesium 2.4 Troponin I High Sens 6 TSH 3.89 H Discharge Plan Triage Chief Complaint: Palpitations ED Provider: Darell Davidson Dx/Rx/DC Orders Clinical Impression: Heart palpitations Instructions: ED About Arrhythmias, ED Palpitations Prescriptions: No Action pantoprazole 40 MG tablet 40 mg PO BID RF: 0 epinephrine 0.3 MG syringe 0.3 mg IM X1 Qty: 1 RF: 0 epinephrine 0.3 MG syringe 0.3 mg IM X1 PRN (Reason: Anaphylaxis) Qty: 1 RF: 0 celecoxib 200 mg capsule 200 mg PO DAILY RF: 0 Primary Care Provider: Corie Lazar Referrals: Corie Lazar DO [Primary Care Provider] - Disposition Disposition: Home, Self Care
[2021-07-06 03:18] LABS: Anion Gap 5 (5-15); BUN 14 mg/dL (7-18); BUN/Creat Ratio 21.6 RATIO (10-20); Calcium,Total 9.1 mg/dL (8.5-10.1); Chloride 102 mmol/L (98-107); Creatinine, Serum 0.65 mg/dL (0.55-1.02); EST Glomerular Filtration Rate 97 mL/min (>60); Est Glom Filt Rate - Afr Amer 118 mL/min (>60); Estimated Creatinine Clearance 68.25 ml/min; Glucose 112 mg/dL (74-106); Magnesium 2.4 mg/dL (1.6-2.6); Potassium 3.9 mmol/L (3.5-5.1); Sodium Level 139 mmol/L (136-145); Thyroid Stim Hormone (TSH) 3.89 uIU/mL (0.358-3.74); Troponin-I HS 6 pg/mL (3.0-54.0)
[2021-07-06 03:49] VITALS: BP 121/79; PULSE 84; RESP 16; O2SAT 99
--- NOTE | 2021-07-06 03:49 | ED.RN ---
THIS NURSE REVIEWED D/C INSTRUCTIONS WITH PT. PT VERBALIZED UNDERSTANDING OF INSTRUCTIONS. IV D/C. IV CATHETER INTACT. PT TOLERATED WELL. PT DENIES FURTHER NEEDS OR QUESTIONS AT THIS TIME. PT AMBULATES FROM ROOM ON OWN WITHOUT ASSISTANCE FROM STAFF
== END 2021-07-06 03:50 | disposition home or self-care (01) ==
PROVIDERS: Emergency Provider Emergency Medicine; PCP Internal Medicine
DX: R00.2 Palpitations (principal); K21.9 Gastro-esophageal reflux disease without esophagitis; M19.90 Unspecified osteoarthritis, unspecified site; Z79.899 Other long term (current) drug therapy; Z87.891 Personal history of nicotine dependence
CPT/HCPCS: 80048; 83735; 84443; 84484; 85025; 93005; 99283; A4216

== ENCOUNTER → 2021-07-12 06:33 | Outpatient (CLI) | payer MEDICARE, OTHER, SELFPAY ==
--- NOTE | 2021-07-12 17:31 | STRESSREP ---
Stress Test Report Exercise myocardial perfusion stress test. 65-year-old lady with a history of ventricular bigeminy. Stress protocol: Resting EKG demonstrated sinus rhythm with a rate of 65 bpm normal intervals are noted resting blood pressure is 122/78 mmHg. The patient exercised according to regular Omar protocol for total duration of 7 minutes completing 1 minute into stage III of the Omar protocol the maximum heart rate attained was 173 bpm which was 111% maximum corrected heart rate the maximum workload was 10.1 metabolic equivalents. At rest there were no ST or T wave changes noted to suggest ischemia and at peak exercise nonspecific ST changes were noted with did not meet the criteria for ischemia. The peak rate pressure product was 21,880. Myocardial perfusion protocol. 11.0 mCi of technetium 99m sestamibi was injected at rest. The patient exercised according to regular Omar protocol for total duration of 7 minutes and at peak exercise 33.6 mCi of technetium 99m sestamibi was injected stress images were obtained stress and rest images were reconstructed and compared in the short axis vertical long horizontal long axis. Gated images were also obtained for Perfusion SPECT analysis: Review of the stress images demonstrate normal uptake of tracer noted in all areas of the myocardium. The resting images similarly demonstrate normal uptake of tracer noted in all areas of the myocardium. No areas of reversibility are noted suggest ischemia and no previous infarct is noted. Gated SPECT analysis: The gated ejection fraction is 72%. Conclusion: Normal exercise myocardial perfusion stress test at a high workload. Preserved ejection fraction.
== END ==
PROVIDERS: PCP Internal Medicine; Referring Provider Internal Medicine; Visit Provider Internal Medicine
DX: R94.31 Abnormal electrocardiogram [ECG] [EKG] (principal); I49.8 Other specified cardiac arrhythmias
CPT/HCPCS: 78452; 93017; A9500; A4216

== ENCOUNTER → 2021-07-18 | Outpatient (CLI) | payer MEDICARE, OTHER, SELFPAY ==
[2021-07-18 10:30] LABS: D-Dimer Quantitative (DVT/PE) 0.37 FEU/ug/m (0.27-0.49)
== END | disposition home or self-care (01) ==
LOC: LABSPEC 10:12
PROVIDERS: PCP Internal Medicine; Referring Provider Internal Medicine; Visit Provider Internal Medicine
DX: R06.02 Shortness of breath (principal)
CPT/HCPCS: 85379

== ENCOUNTER → 2021-09-15 06:38 | Outpatient (CLI) | payer MEDICARE, OTHER, SELFPAY ==
--- NOTE | 2021-09-15 06:47 | MRI_ITS ---
STUDY: MRI CERVICAL SPINE WITHOUT CONTRAST REASON FOR EXAM: Female, 65 years old. CERVICAL SPINAL STENOSIS TECHNIQUE: Standardized fat and water weighted pulse sequences were obtained in the sagittal and axial planes. COMPARISON: None FINDINGS: Normal foramen magnum and brainstem-cervical cord junction. Normal cervical lordosis. C2-3: There is minimal disc space narrowing and endplate spondylosis. There is no significant central canal or foraminal stenosis C3-4: There is minimal disc space narrowing and endplate spondylosis. There is no significant central canal or foraminal stenosis C4-5: There is minimal disc space narrowing and endplate spondylosis. There is no significant central canal or foraminal stenosis C5-6: There is minimal disc space narrowing and endplate spondylosis. There is no significant central canal or foraminal stenosis C6-7: There is minimal disc space narrowing and endplate spondylosis. There is no significant central canal or foraminal stenosis C7-T1: There is minimal disc space narrowing and endplate spondylosis. There is no significant central canal or foraminal stenosis Normal cervical cord. MRI/Spine Cervical (Routine) IMPRESSION: Mild degenerative changes without significant central canal or foraminal stenosis. Electronically Signed: Kenney Atkins MD at 15:58 EST Tel , Service support ,
== END ==
PROVIDERS: PCP Internal Medicine; Referring Provider Nurse Practitioner Family; Visit Provider Nurse Practitioner Family
DX: M48.9 Spondylopathy, unspecified (principal); M46.96 Unspecified inflammatory spondylopathy, lumbar region; M54.12 Radiculopathy, cervical region; M48.02 Spinal stenosis, cervical region; M47.812 Spondylosis without myelopathy or radiculopathy, cervical region
CPT/HCPCS: 72141

== ENCOUNTER 2021-10-14 17:22 | Outpatient (CLI) | payer MEDICARE, OTHER, SELFPAY ==
--- NOTE | 2021-10-14 17:27 | CT_ITS ---
EXAM: CT ABDOMEN WITHOUT INTRAVENOUS CONTRAST CLINICAL INDICATION: RUQ PAIN TECHNIQUE: Helically acquired images were obtained of the abdomen without intravenous contrast. CTDIvol = ( 8.60 ) mGy, DLP = ( 272.86 ) mGycm This CT exam was performed using one or more of the following dose reduction techniques: automated exposure control, adjustment of the mA and/or kV according to patient size, and/or use of iterative reconstruction technique. This report was created using [employer] report generation technology. CONTRAST: Oral Readi-CAT COMPARISON: CT abdomen pelvis 03/20/2014 FINDINGS: LOWER THORAX: Unremarkable. Lung bases are clear. No cardiomegaly. No significant pericardial effusion. LIVER: Unremarkable. Homogeneous. GALLBLADDER AND BILE DUCTS: Absent gallbladder. No intra- or extrahepatic biliary ductal dilation. PANCREAS: Unremarkable. No focal cystic mass. SPLEEN: Calcified granulomas of the spleen which is not enlarged. ADRENALS: Unremarkable. No nodules. KIDNEYS AND URETERS: Exophytic cyst laterally involving left kidney measuring up to 2.3 cm. Normal renal size and position. No hydronephrosis. STOMACH AND BOWEL: Unremarkable. No stomach or bowel distention. No focal inflammatory change. INTRAPERITONEAL SPACE: No free air or free fluid. BONES/JOINTS: Unremarkable. No suspicious lytic or blastic abnormality. SOFT TISSUES: Unremarkable. No discrete abdominal wall hernia. VASCULATURE: Unremarkable. Abdominal aorta is non-dilated. LYMPH NODES: No enlarged lymph nodes. OTHER FINDINGS: No inflammatory or obstructive changes about. CT/Abdomen WITH ORAL Cont Only IMPRESSION: No acute or inflammatory disease or bowel obstruction. Old granulomatous disease. Calcified granulomas of the spine. Electronically Signed: Darell Barba MD at 0:30 EST Tel , Service support ,
== END 2021-10-14 23:59 | disposition short-term general hospital (02) ==
LOC: CT 17:23
PROVIDERS: PCP Internal Medicine; Referring Provider Internal Medicine; Visit Provider Internal Medicine
DX: R10.11 Right upper quadrant pain (principal)
CPT/HCPCS: 74150

== ENCOUNTER → 2022-05-08 | Outpatient (CLI) | payer MEDICARE, OTHER, SELFPAY ==
--- NOTE | 2022-05-08 08:13 | US_ITS ---
STUDY: ABDOMINAL ULTRASOUND - RIGHT UPPER QUADRANT REASON FOR VISIT: Female, 66 years old EPIGASTRIC PAIN TECHNIQUE: Ultrasound evaluation of the right upper quadrant was performed with real-time and static garcia-scale imaging. TECHNICAL QUALITY: Adequate. COMPARISON: None. FINDINGS: Liver: The liver measures 16.0 cm. There is increased echogenicity consistent with fatty infiltration. The bile ducts are within normal limits. There is hepatic color flow. The direction of portal flow is hepatopetal. There is no demonstrated mass lesion. Gallbladder: The patient is status post cholecystectomy. s. Common Bile Duct (C.B.D.): The common bile duct measures 12 mm. Pancreas: Normal size of the head, body and tail of the pancreas. There is normal echogenicity of the pancreas. There is no demonstrated pancreatic mass or cyst. Right Kidney: Normal size of the right kidney. The right kidney measures 10.4 cm. Normal renal cortex. The right cortex measures 2.0 cm. There is no demonstrated renal mass or cyst. There is no right hydronephrosis. US/Abdomen Limited IMPRESSION: Status post cholecystectomy with fatty infiltration of the liver. Electronically Signed: Chemo Gray MD at 9:04 EDT ,
[2022-05-08 08:25] LABS: Absolute Lymphocyte Count 2.02 X10^3/uL (0.83-4.51); Absolute Neutrophil Count 4.1 X10^3/uL (2.0-7.7); Basophil# 0.04 X10^3/uL; Basophil% 0.6 % (0-1); Eosinophil# 0.12 X10^3/uL; Eosinophils% 1.8 % (0-5); Hematocrit 40.9 % (37-47); Hemoglobin 13.2 g/dL (12.0-15.0); Lymphocyte # 2.02 X10^3/ul (0.83-4.51); Mean Corp Hgb Conc 32.3 g/dL (32-36); Mean Corpuscular Hgb 31.2 pg (27.0-32.0); Mean Corpuscular Volume 96.7 fL (81-99); Monocyte# 0.42 X10^3/uL; Monocyte% 6.2 % (0-10); NRBC Flagged by Analyzer 0 % (0-5); Neutrophil % 60.8 % (47-70); Platelet Count 282 K/mm3 (150-450); RBC Distribution Width CV 12.5 % (11.6-14.6); RBC Distribution Width SD 44.4 fl (35.1-43.9); Red Blood Count 4.23 M/mm3 (4.2-5.4); White Blood Count 6.7 K/mm3 (4.4-11.0)
[2022-05-08 09:06] LABS: ALB/GLOB Ratio 0.9 RATIO (0.9-2.4); AST(SGOT) 16 U/L (15-37); Alanine Aminotransfer ALT/SGPT 24 U/L (13-56); Albumin, Serum 3.3 g/dL (3.2-5.0); Alkaline Phosphatase 63 U/L (45-117); Anion Gap 5 (5-15); BUN 16 mg/dL (7-18); BUN/Creat Ratio 25.8 RATIO (10-20); Calcium,Total 8.6 mg/dL (8.5-10.1); Chloride 106 mmol/L (98-107); Creatinine, Serum 0.62 mg/dL (0.55-1.02); EST Glomerular Filtration Rate 102 mL/min (>60); Est Glom Filt Rate - Afr Amer 123 mL/min (>60); Globulin 3.7 g/dL (2.2-4.2); Glucose 106 mg/dL (74-106); Lipase 93 U/L (73-393); Potassium 4.1 mmol/L (3.5-5.1); Sodium Level 140 mmol/L (136-145); Thyroid Stim Hormone (TSH) 1.52 uIU/mL (0.358-3.74)
== END | disposition home or self-care (01) ==
PROVIDERS: PCP Internal Medicine
DX: R10.13 Epigastric pain (principal); K76.0 Fatty (change of) liver, not elsewhere classified; Z90.49 Acquired absence of other specified parts of digestive tract
CPT/HCPCS: 36415; 76705; 80053; 83690; 84443; 85025

== ENCOUNTER → 2022-06-19 | Outpatient (CLI) | payer MEDICARE, OTHER, SELFPAY ==
--- NOTE | 2022-06-19 06:30 | ECHOD_ITS ---
Reason For Study: Chest Tightness Procedure This was a 2D Doppler, Color Flow transthoracic echocardiogram. Exam performed in department. Left Ventricle Normal LV size. Left ventricular systolic function is normal. The estimated ejection fraction is 55 %. No regional wall motion abnormalities noted. Right Ventricle Normal RV size. Normal systolic function. Atria Normal left atrium. Normal right atrium. Mitral Valve Normal mitral valve. Tricuspid Valve Normal tricuspid valve. Mild tricuspid valve insufficiency. Pulmonary artery systolic pressure is 30 mmHg. Aortic Valve Normal aortic valve. Trisinus/trileaflet aortic valve. Pulmonic Valve Normal pulmonic valve. Great Vessels Normal aortic root. The pulmonary artery is normal size. Normal inferior vena cava. Pericardium/Pleural No pericardial effusion. MMode/2D Measurements & Calculations LVIDd: 5.2 cm IVSd: 0.87 cm Ao root diam: 3.1 cm LVIDs: 3.6 cm LVPWd: 0.77 cm LA dimension: 3.3 cm RVDd: 3.2 cm FS: 30.7 % LAV(MOD-bp): 28.3 ml LA A4 area: 13.9 cm2 RA A4 area: 13.8 cm2 LAV(MOD-bp) Indexed: 18.5 ml/m2 LAV(MOD-sp2): 22.7 ml LAV(MOD-sp4): 35.7 ml Time Measurements MV dec time: 0.20 sec Doppler Measurements & Calculations MV E max ian: 53.9 cm/sec Lat Peak E' Ian: 9.7 cm/sec Med Peak E' Ian: 8.3 cm/sec MV A max ian: 87.7 cm/sec E/E' lat: 5.6 E/E' med: 6.5 MV E/A: 0.61 MV V2 max: 104.1 cm/sec MV P1/2t max ian: 74.5 cm/sec Ao V2 max: 135.1 cm/sec MV max P.3 mmHg MV P1/2t: 72.6 msec Ao max P.3 mmHg MV V2 mean: 45.7 cm/sec MV dec slope: 300.6 cm/sec2 Ao V2 mean: 88.5 cm/sec MV mean P.0 mmHg MVA(P1/2t): 3.0 cm2 Ao mean P.7 mmHg MV V2 VTI: 21.6 cm Ao V2 VTI: 27.8 cm LV V1 max: 95.6 cm/sec PA V2 max: 94.8 cm/sec TR max ian: 226.6 cm/sec LV V1 max P.7 mmHg TR max P.7 mmHg LV V1 mean P.0 mmHg LV V1 mean: 66.5 cm/sec LV V1 VTI: 21.8 cm ECHO/Echo Complete Interpretation Summary Normal LV size. Left ventricular systolic function is normal. The estimated ejection fraction is 55 %. Structurally normal valves. Ordering Physician: Corie Lazar Referring Physician: Corie Lazar Performed By: Juan Grace RCS
--- NOTE | 2022-06-19 11:13 | STRESSREP ---
Stress Test Report Exercise myocardial perfusion stress test. 66-year-old lady with a history of chest pain. Stress protocol: Resting EKG demonstrates normal sinus rhythm with a rate of 61 bpm normal intervals are noted resting blood pressure is 120/72 mmHg. The patient exercised according to the regular Omar protocol for total duration of 9 minutes completing stage III of the Omar protocol the maximum heart rate attained 150 bpm which was 97% of max impacted heart rate the maximum workload was 10.1 metabolic equivalents. At rest there were no ST or T wave changes noted suggest ischemia and at peak exercise there were no ST or T wave changes noted to suggest ischemia. No clinical angina was noted the test was terminated due to completion of the protocol. Myocardial perfusion protocol. 11.4 mCi of technetium 99m sestamibi was injected at rest. The patient exercised according to regular Omar protocol for total duration of 9 minutes and at peak exercise 31.8 mCi of technetium 99m sestamibi was injected stress images were obtained stress and rest images were reconstructed and compared in the short axis vertical long and horizontal long axis. Gated images were also obtained to Perfusion SPECT analysis: Review of the stress images demonstrate normal uptake of tracer noted in all areas of the myocardium. The resting images similar demonstrate normal uptake of tracer noted in all areas of the myocardium. No reversibility is noted to suggest ischemia and no previous infarct is noted. Gated SPECT analysis: The gated ejection fraction is 67%. Conclusion: Normal exercise myocardial perfusion stress test at a high workload. No clinical angina noted. Preserved ejection fraction.
== END | disposition home or self-care (01) ==
LOC: CVS 06:25
PROVIDERS: PCP Internal Medicine; Referring Provider Internal Medicine; Visit Provider Internal Medicine
DX: R07.89 Other chest pain (principal)
CPT/HCPCS: 78452; 93017; 93306; A9500; A4216

== ENCOUNTER → 2022-07-31 | Outpatient (CLI) | payer MEDICARE, OTHER, SELFPAY ==
--- NOTE | 2022-07-31 08:46 | EKG12_ITS ---
Test Reason : PRE OP Blood Pressure : / mmHG Vent. Rate : 074 BPM Atrial Rate : 074 BPM P-R Int : 126 ms QRS Dur : 092 ms QT Int : 382 ms P-R-T Axes : 049 007 023 degrees QTc Int : 424 ms Normal sinus rhythm Normal ECG Confirmed by LOYD BAKER, HANNAH ([id number]), dictionary editor IRAIDA TURK ([id number]) on 08/01/2022 8:50:29 AM Referred By: Hever Clemente Confirmed By:HANNAH HARP MD
[2022-07-31 09:31] LABS: Hematocrit 38.7 % (37-47); Hemoglobin 12.6 g/dL (12.0-15.0); Mean Corp Hgb Conc 32.6 g/dL (32-36); Mean Corpuscular Hgb 31.5 pg (27.0-32.0); Mean Corpuscular Volume 96.8 fL (81-99); Mean Platelet Vol. 10.3 fl (6.2-12.0); Platelet Count 262 K/mm3 (150-450); RBC Distribution Width CV 12.7 % (11.6-14.6); RBC Distribution Width SD 45.5 fl (35.1-43.9); White Blood Count 6.3 K/mm3 (4.4-11.0)
[2022-07-31 09:58] LABS: Anion Gap 5 (5-15); BUN 10 mg/dL (7-18); BUN/Creat Ratio 19.6 RATIO (10-20); Chloride 109 mmol/L (98-107); Creatinine, Serum 0.51 mg/dL (0.55-1.02); EST Glomerular Filtration Rate 128 mL/min (>60); Est Glom Filt Rate - Afr Amer 155 mL/min (>60); Glucose 110 mg/dL (74-106); Sodium Level 142 mmol/L (136-145)
== END | disposition home or self-care (01) ==
LOC: PSN 08:36
PROVIDERS: PCP Internal Medicine; Referring Provider Physician Assistant; Visit Provider Physician Assistant
DX: Z01.818 Encounter for other preprocedural examination (principal)
CPT/HCPCS: 36415; 80048; 85027; 93005

== ENCOUNTER → 2022-11-17 | Outpatient (CLI) | payer MEDICARE, OTHER, SELFPAY ==
[2022-11-17 10:51] LABS: AST(SGOT) 26 U/L (15-37); Alanine Aminotransfer ALT/SGPT 61 U/L (13-56); Albumin, Serum 3.8 g/dL (3.2-5.0); Alkaline Phosphatase 88 U/L (45-117); Globulin 3.6 g/dL (2.2-4.2); Protein, Total 7.4 g/dL (6.4-8.2)
== END | disposition home or self-care (01) ==
LOC: LAB 09:37
PROVIDERS: PCP Internal Medicine; Referring Provider Internal Medicine Rheumatology; Visit Provider Internal Medicine Rheumatology
DX: R74.8 Abnormal levels of other serum enzymes (principal)
CPT/HCPCS: 36415; 80076

== ENCOUNTER → 2023-02-26 | Outpatient (CLI) | payer MEDICARE, OTHER, SELFPAY ==
[2023-02-26 07:31] LABS: Absolute Lymphocyte Count 2.19 X10^3/uL (0.83-4.51); Absolute Neutrophil Count 5.9 X10^3/uL (2.0-7.7); Basophil# 0.04 X10^3/uL; Basophil% 0.4 % (0-1); Eosinophil# 0.24 X10^3/uL; Eosinophils% 2.7 % (0-5); Hemoglobin 13.2 g/dL (12.0-15.0); Lymphocyte # 2.19 X10^3/ul (0.83-4.51); Lymphocyte % 24.4 % (19-41); Mean Corp Hgb Conc 32.2 g/dL (32-36); Mean Corpuscular Hgb 31.1 pg (27.0-32.0); Mean Corpuscular Volume 96.7 fL (81-99); Mean Platelet Vol. 10.4 fl (6.2-12.0); Monocyte# 0.61 X10^3/uL; Monocyte% 6.8 % (0-10); NRBC Flagged by Analyzer 0 % (0-5); Neutrophil # 5.85 X10^3/uL (2.7-7.7); Platelet Count 247 K/mm3 (150-450); RBC Distribution Width CV 13.1 % (11.6-14.6); RBC Distribution Width SD 46.4 fl (35.1-43.9); Red Blood Count 4.24 M/mm3 (4.2-5.4)
[2023-02-26 08:14] LABS: ALB/GLOB Ratio 0.9 RATIO (0.9-2.4); AST(SGOT) 11 U/L (15-37); Alanine Aminotransfer ALT/SGPT 21 U/L (13-56); Albumin, Serum 3.3 g/dL (3.2-5.0); Alkaline Phosphatase 71 U/L (45-117); Anion Gap 5 (5-15); BUN 16 mg/dL (7-18); BUN/Creat Ratio 29.4 RATIO (10-20); Calcium,Total 9.4 mg/dL (8.5-10.1); Chloride 105 mmol/L (98-107); Cholesterol 195 mg/dL (200); Creatinine, Serum 0.54 mg/dL (0.55-1.02); EST Glomerular Filtration Rate 119 mL/min (>60); Est Glom Filt Rate - Afr Amer 144 mL/min (>60); Ferritin 90 ng/mL (8-252); Globulin 3.6 g/dL (2.2-4.2); Glucose 99 mg/dL (74-106); High Density Lipoprotein 56 mg/dL; Magnesium 2.4 mg/dL (1.6-2.6); Potassium 3.8 mmol/L (3.5-5.1); Protein, Total 6.9 g/dL (6.4-8.2); Sodium Level 140 mmol/L (136-145); Thyroid Stim Hormone (TSH) 2.32 uIU/mL (0.358-3.74); Triglycerides 78 mg/dL; Very Low Density Lipoprotein 16 mg/dL (5-40)
[2023-02-26 08:25] LABS: Vitamin D,25 Hydroxy 48.3 ng/mL
== END | disposition home or self-care (01) ==
LOC: LAB 06:21
PROVIDERS: PCP Internal Medicine; Referring Provider Internal Medicine; Visit Provider Internal Medicine
DX: E78.1 Pure hyperglyceridemia (principal); I49.3 Ventricular premature depolarization; E55.9 Vitamin D deficiency, unspecified; G25.81 Restless legs syndrome
CPT/HCPCS: 36415; 80053; 80061; 82306; 82728; 83735; 84443; 85025

== ENCOUNTER 2023-03-18 07:16 | Emergency (ER) | payer MEDICARE, OTHER, SELFPAY ==
[2023-03-18 07:17] VITALS: BP 132/69; PULSE 86; RESP 15; TEMP 36.4; O2SAT 100; BMI 21.5
--- NOTE | 2023-03-18 07:35 | CT_ITS ---
STUDY: CT ABDOMEN AND PELVIS WITHOUT CONTRAST REASON FOR EXAM: Female, 67 years old. Flank pain RADIATION DOSAGE (If Supplied By Facility): CTDIvol = ( 6.04 ) mGy, DLP = ( 271.8 ) mGycm TECHNIQUE: Transaxial images were obtained from the dome of the diaphragm to the symphysis pubis without oral contrast, and without intravenous contrast. Sagittal and coronal images were reconstructed. Individualized dose optimization techniques were used for this CT. COMPARISON: 10/14/2021 FINDINGS: There are chronic interstitial fibrotic changes of the lung bases. The visualized portions of the heart are within normal limits. Normal liver. There are surgical clips in the gallbladder fossa consistent with a prior cholecystectomy. There are multiple benign calcified granulomata of the spleen. Normal pancreas. Normal bilateral adrenal glands. No obstructive uropathy, or suspicious solid renal lesion, there is a stable simple 2.5 cm left renal cyst. Normal visualized stomach. Normal small intestine. Scattered colonic diverticula with retained stool in the majority of the colon. In the distal sigmoid colon, there is thickening and pericolonic inflammatory stranding is seen on axial images 116 through 127 consistent with acute diverticulitis. No perforation or abscess noted. The appendix is not visualized. Normal abdominal aorta. Normal inferior vena cava. Normal retroperitoneum. Normal urinary bladder. Normal abdominal wall. There are diffuse degenerative changes of the visualized lumbar spine, and pelvis. CT/Abdomen/Pelvis without Cont IMPRESSION: Acute sigmoid diverticulitis in the distal sigmoid colon with a minimal amount of pericolonic inflammatory stranding. No perforation or abscess No suspicious solid or abnormality, specifically, no obstructive uropathy. Stable simple left renal cyst. No specific follow-up needed No free intraperitoneal fluid, air, or suspicious adenopathy Electronically Signed: Frankie Higginbotham MD at 8:41 EDT ,
--- NOTE | 2023-03-18 07:35 | ED.VIS.FEGU ---
HPI HPI - Female History of Present Illness Chief Complaint: Complaint Narrative Narrative: 67-year-old female presenting with dysuria and urinary frequency. She states this is been ongoing for a few days. She is also noted that she has sharp intermittent left-sided pelvic pain. She describes this as sharp. When it comes it is severe as an 8/10. She gets nauseous and has trouble finding a position of comfort when this happens. No fevers. She does have some associated nausea. No diarrhea or constipation. No vaginal complaints. [facility] Medical History Anemia Arthritis GERD (gastroesophageal reflux disease) history of spur removal Irregular heart beat Home Medications epinephrine 0.3 mg/0.3 mL injection, auto-injector 0.3 mg (0.3 mL) IM X1 ##1 04/04/20 [Rx Last Taken Unknown] pantoprazole 40 mg tablet,delayed release 40 mg PO BID 04/04/20 [History Last Taken Unknown] epinephrine 0.3 mg/0.3 mL injection, auto-injector 0.3 mg (0.3 mL) IM X1 PRN Anaphylaxis ##1 04/05/20 [Rx Last Taken Unknown] celecoxib 200 mg capsule 200 mg PO DAILY 07/06/21 [History Last Taken Unknown] ciprofloxacin HCl 500 mg tablet (Cipro) 500 mg PO BID #20 tabs 03/18/23 [Rx Last Taken Unknown] hydrocodone-acetaminophen 5-325mg 5mg-325mg 1 tab PO Q6H PRN PRN Pain 3 days #10 TABLETS 03/18/23 [Rx Last Taken Unknown] metronidazole 500 mg tablet 500 mg PO TID #30 tabs 03/18/23 [Rx Last Taken Unknown] ondansetron 4 mg disintegrating tablet 4 mg PO Q8H PRN PRN Nausea #14 tabs 03/18/23 [Rx Last Taken Unknown] phenazopyridine 200 mg tablet (Pyridium) 200 mg PO TID 6 doses #6 tabs 03/18/23 [Rx Last Taken Unknown] Allergy/AdvReac Type Severity Reaction Status Date / Time bee venom protein (honey bee) Allergy Anaphylaxis Verified 03/18/23 07:33 gabapentin Allergy DIZZY AND Verified 03/18/23 07:33 LIGHTHEADED Surgical History History of appendectomy History of hysterectomy Social History Smoking Status: Former smoker alcohol intake: never ROS ROS ED Constitutional Constitutional ED: Denies chills or fever(s) Eyes Eyes: Denies change in vision or diplopia ENT ENT ED: Denies rhinorrhea or sore throat Cardiovascular Cardiovascular: Denies chest pain or palpitations Respiratory/Chest Respiratory/Chest: Denies cough or dyspnea Gastrointestinal Gastrointestinal: Reports abdominal pain and nausea Genitourinary Genitourinary ED: Reports dysuria and urinary frequency Musculoskeletal Musculoskeletal: Denies arthralgias Integumentary Denies abscess Neurologic Neurologic: Denies headache(s) or paresthesias Psychiatric Psychiatric: Denies anxiety or depression EXAM Physical Exam Const Vital Signs: 03/18/23 07:17 03/18/23 09:13 Temperature 97.5 F L Temperature Source Temporal Pulse Rate 86 76 Respiratory Rate 15 18 Blood Pressure 132/69 H 111/61 Blood Pressure Mean 90 Pulse Ox 100 99 Oxygen Delivery Method Room Air Positive well nourished General Appearance ED: NAD Eyes PERRL and EOMs intact bilaterally Resp normal respiratory effort Cardio regular rate and regular rhythm GI Palpation: tender LLQ Back/Spine General Back: CVA tenderness left Neuro oriented x3 and CN's II-XII intact bilaterally Sensorium / Orientation: alert Psych mental status grossly normal MDM MDM MDM Narrative Medical decision making narrative: Patient presenting with left lower quadrant pain, dysuria, hematuria. Differential includes UTI, pyelonephritis, ovarian cyst, ovarian torsion, ureteral calculi, renal calculi, diverticulitis, colitis. I have a strong suspicion with her urinary symptoms and sharp pain that she has a kidney stone however. She treat with Toradol. CBC to assess white blood cell count, hemoglobin, platelets. BMP to assess renal function, electrolytes. Urinalysis to assess for UTI or occult blood. CT of the abdomen pelvis without contrast to rule out kidney stone. CBC shows a slight leukocytosis at 12.1. Hemoglobin stable at 12.5. Renal function electrolytes within normal limits. Urinalysis shows 250 occult blood, negative nitrites, 500 leukocyte esterase, 100 white blood cells with no contamination and 1+ bacteria. CT of the abdomen pelvis without contrast was obtained to rule out kidney stone and there is no evidence of kidney stone but there is acute diverticulitis. This is uncomplicated. Given that she has a UTI in addition to diverticulitis she will be started on Cipro and Flagyl. Urine culture was sent. She was given [place] for pain and Zofran for nausea. She also requested Pyridium for dysuria. Return precautions were discussed. Impression: 1. Acute uncomplicated sigmoid diverticulitis 2. UTI Lab Data Attestation: I reviewed the patient's lab results. Labs: Laboratory Results - last 24 hr 03/18/23 03/18/23 03/18/23 07:25 07:40 07:40 WBC 12.1 H RBC 3.89 L Hgb 12.5 Hct 37.6 MCV 96.7 MCH 32.1 H MCHC 33.2 RDW Std Deviation 47.9 H RDW Coeff of Osei 13.3 Plt Count 271 MPV 9.9 Immature Gran % (Auto) 0.700 Neut % (Auto) 76.0 H Lymph % (Auto) 14.1 L [place] % (Auto) 7.6 Eos % (Auto) 1.3 Baso % (Auto) 0.3 Absolute Neuts (auto) 9.2 H Absolute Lymphs (auto) 1.71 Nucleated RBC % 0 Sodium 141 Potassium 3.6 Chloride 108 H Carbon Dioxide 27.0 Anion Gap 6 BUN 9 Creatinine 0.53 L Estim Creat Clear Calc 43.18 Est GFR (MDRD) Af Amer 147 Est GFR (MDRD) Non-Af 121 BUN/Creatinine Ratio 16.9 Glucose 112 H Calcium 8.7 Urine Color Yellow Urine Clarity Cloudy Urine pH 6.0 Ur Specific Busy 1.015 Urine Protein 30 H Urine Glucose (UA) Normal Urine Ketones Negative Urine Occult Blood 250 H Urine Nitrite Negative Urine Bilirubin Negative Urine Urobilinogen Normal Ur Leukocyte Esterase 500 H Urine RBC 5-10 SEEN Urine WBC >100 SEEN Ur Squamous Epith Cells 0 SEEN Urine Bacteria 1+ Urine Mucus 0 SEEN Radiography Diagnostic Testing: Clinical Impression(s) from Imaging Studies Abdomen/Pelvis CT 03/18/23 07:35 IMPRESSION: Acute sigmoid diverticulitis in the distal sigmoid colon with a minimal amount of pericolonic inflammatory stranding. No perforation or abscess No suspicious solid or abnormality, specifically, no obstructive uropathy. Stable simple left renal cyst. No specific follow-up needed No free intraperitoneal fluid, air, or suspicious adenopathy Electronically Signed: Frankie Higginbotham MD at 8:41 EDT , Discharge Plan Triage Chief Complaint: Complaint ED Provider: Ramón Ha Dx/Rx/DC Orders Instructions: ED Diverticulitis, ED Cystitis Female Adult Prescriptions: New ciprofloxacin HCl [Cipro] 500 mg tablet 500 mg PO BID Qty: 20 0RF metronidazole 500 mg tablet 500 mg PO TID Qty: 30 0RF ondansetron 4 mg tablet,disintegrating 4 mg PO Q8H PRN PRN (Reason: Nausea) Qty: 14 0RF hydrocodone-acetaminophen 5-325 mg tablet 1 tab PO Q6H PRN PRN (Reason: Pain) 3 Days Qty: 10 0RF phenazopyridine [Pyridium] 200 mg tablet 200 mg PO TID Qty: 6 0RF No Action pantoprazole 40 MG tablet 40 mg PO BID epinephrine 0.3 MG syringe 0.3 mg IM X1 Qty: 1 0RF epinephrine 0.3 MG syringe 0.3 mg IM X1 PRN (Reason: Anaphylaxis) Qty: 1 0RF celecoxib 200 mg capsule 200 mg PO DAILY Primary Care Provider: Corie Lazar Referrals: Corie Lazar DO [Primary Care Provider] - Disposition Disposition: Home, Self Care Discharge Date/Time: 03/18/23 09:14
[2023-03-18 07:36] LABS: Mucous, Urine 0 SEEN /hpf (<or=2+); Squamous Epithelial Cells - UA 0 SEEN /hpf (5-10)
[2023-03-18 07:46] LABS: Color, Urine Yellow (Yellow); Glucose, Dipstick Normal (Normal); Ketone-Dipstick Negative (Negative); Leukocyte Esterase-Dipstick 500 /ul (Negative); Nitrite-Dipstick Negative (Negative); Occult Blood-Urine 250 /ul (Negative); Protein-Dipstick 30 mg/dl (Negative); Specific Gravity, Urine 1.015 (1.002-1.030); Urine Bilirubin Dipstick Negative (Negative); Urine Clarity Cloudy (Clear); Urine Urobilinogen Normal (Normal)
[2023-03-18] MEDS: Ketorolac 15 MG/ML Vial IV (07:46)
[2023-03-18] MEDS: Ondansetron 4 MG/2 ML Vial IV (07:46)
[2023-03-18 07:55] LABS: Absolute Lymphocyte Count 1.71 X10^3/uL (0.83-4.51); Absolute Neutrophil Count 9.2 X10^3/uL (2.0-7.7); Basophil# 0.04 X10^3/uL; Basophil% 0.3 % (0-1); Eosinophil# 0.16 X10^3/uL; Eosinophils% 1.3 % (0-5); Hematocrit 37.6 % (37-47); Hemoglobin 12.5 g/dL (12.0-15.0); Lymphocyte # 1.71 X10^3/ul (0.83-4.51); Lymphocyte % 14.1 % (19-41); Mean Corp Hgb Conc 33.2 g/dL (32-36); Mean Corpuscular Hgb 32.1 pg (27.0-32.0); Mean Corpuscular Volume 96.7 fL (81-99); Mean Platelet Vol. 9.9 fl (6.2-12.0); Monocyte# 0.92 X10^3/uL; Monocyte% 7.6 % (0-10); NRBC Flagged by Analyzer 0 % (0-5); Platelet Count 271 K/mm3 (150-450); RBC Distribution Width CV 13.3 % (11.6-14.6); RBC Distribution Width SD 47.9 fl (35.1-43.9); Red Blood Count 3.89 M/mm3 (4.2-5.4); White Blood Count 12.1 K/mm3 (4.4-11.0)
[2023-03-18 08:01] LABS: Anion Gap 6 (5-15); BUN 9 mg/dL (7-18); BUN/Creat Ratio 16.9 RATIO (10-20); Calcium,Total 8.7 mg/dL (8.5-10.1); Chloride 108 mmol/L (98-107); Creatinine, Serum 0.53 mg/dL (0.55-1.02); EST Glomerular Filtration Rate 121 mL/min (>60); Est Glom Filt Rate - Afr Amer 147 mL/min (>60); Estimated Creatinine Clearance 43.18 ml/min; Glucose 112 mg/dL (74-106); Potassium 3.6 mmol/L (3.5-5.1); Sodium Level 141 mmol/L (136-145)
[2023-03-18 08:13] LABS: Bacteria 1+ /hpf (None Seen); Red Blood Cells-Urine 5-10 SEEN /hpf (0-5); White Blood Cells >100 SEEN /hpf (0-5)
[2023-03-18] MEDS: Ciprofloxacin 500 MG Tablet PO (09:11)
[2023-03-18] MEDS: metroNIDAZOLE 500 MG Tablet PO (09:11)
[2023-03-18 09:13] VITALS: BP 111/61; PULSE 76; RESP 18; O2SAT 99
== END 2023-03-18 09:14 | disposition home or self-care (01) ==
PROVIDERS: Emergency Provider Student in an Organized Health Care Education/Training Program; PCP Internal Medicine; Visit Provider Student in an Organized Health Care Education/Training Program
DX: K57.32 Diverticulitis of large intestine without perforation or abscess without bleeding (principal); N39.0 Urinary tract infection, site not specified; Z87.891 Personal history of nicotine dependence
CPT/HCPCS: 74176; 80048; 81001; 85025; 87077; 87086; 87088; 87186; 96374; 96375; 99284; A4216; J2405

== ENCOUNTER → 2023-05-02 | Outpatient (CLI) | payer MEDICARE, OTHER, SELFPAY ==
--- NOTE | 2023-05-02 16:06 | CT_ITS ---
EXAM: CT ABDOMEN AND PELVIS WITHOUT INTRAVENOUS CONTRAST CLINICAL INDICATION: FLANK PAIN TECHNIQUE: Helically acquired images were obtained of the abdomen and pelvis without intravenous contrast. This CT exam was performed using one or more of the following dose reduction techniques: automated exposure control, adjustment of the mA and/or kV according to patient size, and/or use of iterative reconstruction technique. COMPARISON: 03/18/2023, 10/14/2021. FINDINGS: LOWER THORAX: Unremarkable. Lung bases are clear. No cardiomegaly. No significant pericardial effusion. ABDOMEN: LIVER: Unremarkable. Homogeneous. GALLBLADDER AND BILE DUCTS: Unremarkable. No calcified gallstones. No gallbladder distention or wall edema. No intra- or extrahepatic biliary ductal dilation. PANCREAS: Unremarkable. No focal cystic mass. SPLEEN: Multiple splenic granulomata. ADRENALS: Unremarkable. No nodules. KIDNEYS AND URETERS: 2.4 cm low-attenuation lesion in the left kidney not characterized without contrast. No change compared to prior studies. STOMACH AND BOWEL: Nonspecific small bowel gas fluid levels in the pelvis. Diverticulosis. No acute diverticulitis. No stomach or bowel distention. PELVIS: APPENDIX: Normal visualized appendix. BLADDER: Unremarkable. REPRODUCTIVE: Unremarkable as visualized. No mass. ABDOMEN and PELVIS: INTRAPERITONEAL SPACE: Unremarkable. No ascites or other fluid collection. No free air. BONES/JOINTS: Unremarkable. No suspicious lytic or blastic abnormality. SOFT TISSUES: Unremarkable. No discrete abdominal or pelvic wall hernia. VASCULATURE: Unremarkable. Abdominal aorta is normal in caliber. LYMPH NODES: Unremarkable. No enlarged lymph nodes. CT/Abdomen/Pelvis without Cont IMPRESSION: 1. Nonspecific fluid levels in the small bowel may indicate enteritis. Otherwise no acute findings. 2. Stable left renal hypodensity. Follow-up is not indicated per ACR guidelines. Electronically Signed: Desirae Carrasquillo MD at 16:51 EDT Reading Location ID and State: [id number] / Tel , Service support ,
[2023-05-02 16:56] LABS: Absolute Lymphocyte Count 2.25 X10^3/uL (0.83-4.51); Absolute Neutrophil Count 6.5 X10^3/uL (2.0-7.7); Basophil# 0.04 X10^3/uL; Basophil% 0.4 % (0-1); Eosinophil# 0.07 X10^3/uL; Eosinophils% 0.7 % (0-5); Hematocrit 40.8 % (37-47); Hemoglobin 13.5 g/dL (12.0-15.0); Lymphocyte # 2.25 X10^3/ul (0.83-4.51); Lymphocyte % 23.9 % (19-41); Mean Corp Hgb Conc 33.1 g/dL (32-36); Mean Corpuscular Hgb 31.8 pg (27.0-32.0); Mean Platelet Vol. 9.8 fl (6.2-12.0); Monocyte# 0.53 X10^3/uL; Monocyte% 5.6 % (0-10); NRBC Flagged by Analyzer 0 % (0-5); Neutrophil # 6.49 X10^3/uL (2.7-7.7); Neutrophil % 68.9 % (47-70); Platelet Count 310 K/mm3 (150-450); RBC Distribution Width CV 13.2 % (11.6-14.6); RBC Distribution Width SD 46.5 fl (35.1-43.9); Red Blood Count 4.25 M/mm3 (4.2-5.4); White Blood Count 9.4 K/mm3 (4.4-11.0)
[2023-05-02 17:46] LABS: AST(SGOT) 14 U/L (15-37); Alanine Aminotransfer ALT/SGPT 22 U/L (13-56); Albumin, Serum 3.6 g/dL (3.2-5.0); Alkaline Phosphatase 58 U/L (45-117); Anion Gap 7 (5-15); BUN 10 mg/dL (7-18); BUN/Creat Ratio 19.6 RATIO (10-20); Calcium,Total 9.1 mg/dL (8.5-10.1); Chloride 104 mmol/L (98-107); Creatinine, Serum 0.51 mg/dL (0.55-1.02); EST Glomerular Filtration Rate 127 mL/min (>60); Est Glom Filt Rate - Afr Amer 154 mL/min (>60); Globulin 3.6 g/dL (2.2-4.2); Glucose 103 mg/dL (74-106); Potassium 3.8 mmol/L (3.5-5.1); Protein, Total 7.2 g/dL (6.4-8.2); Sodium Level 138 mmol/L (136-145); Thyroid Stim Hormone (TSH) 0.86 uIU/mL (0.358-3.74)
[2023-05-02 18:18] LABS: Hepatitis C Antibody Non-Reactive (Nonreactive)
== END | disposition home or self-care (01) ==
PROVIDERS: PCP Family Medicine Geriatric Medicine; Referring Provider Family Medicine Geriatric Medicine; Visit Provider Family Medicine Geriatric Medicine
DX: N39.0 Urinary tract infection, site not specified (principal); E55.9 Vitamin D deficiency, unspecified; R53.83 Other fatigue
CPT/HCPCS: 36415; 74176; 80053; 82306; 84443; 85025; 86803; 87086

== ENCOUNTER 2023-05-13 16:50 | Emergency (ER) | payer MEDICARE, OTHER, SELFPAY ==
[2023-05-13 16:51] VITALS: BP 136/65; PULSE 75; RESP 16; TEMP 36.6; O2SAT 98; BMI 20.2
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
--- NOTE | 2023-05-13 17:40 | RAD_ITS ---
INDICATION: injury EXAMINATION/TECHNIQUE: X-RAY - RIGHT XR Tibia/Fibula 2 Views 2 VIEWS COMPARISON: FINDINGS: No acute fracture or dislocation. No destructive bone changes. Joint spaces are well-maintained. Normal alignment. Soft tissues are unremarkable. No radiopaque foreign body or soft tissue gas. RAD/Tibia & Fibula 2 Views IMPRESSION: Negative. Electronically Signed: Desirae Carrasquillo MD at 18:05 EDT Reading Location ID and State: [id number] / Tel , Service support ,
[2023-05-13] MEDS: Cephalexin 250 MG Capsule 500 MG PO (18:01)
== END 2023-05-13 18:20 | disposition home or self-care (01) ==
PROVIDERS: Emergency Provider Emergency Medicine; PCP Family Medicine Geriatric Medicine; Visit Provider Emergency Medicine
DX: L03.115 Cellulitis of right lower limb (principal); S80.11XA Contusion of right lower leg, initial encounter; S80.811A Abrasion, right lower leg, initial encounter; Z87.891 Personal history of nicotine dependence; X58.XXXA Exposure to other specified factors, initial encounter
CPT/HCPCS: 73590; 99282

== ENCOUNTER → 2023-05-14 | Outpatient (CLI) | payer MEDICARE, OTHER, SELFPAY ==
[2023-05-14 18:21] LABS: M R Staph aureus DNA By PCR Negative (Negative); Probe Check PASS; Specimen Processing Control PASS; Staph aureus DNA By PCR NEGATIVE (Negative)
== END | disposition home or self-care (01) ==
PROVIDERS: PCP Family Medicine Geriatric Medicine; Visit Provider Family Medicine Geriatric Medicine
DX: L03.115 Cellulitis of right lower limb (principal)
CPT/HCPCS: 36415; 87070; 87205; 87640

== ENCOUNTER → 2023-11-06 | Outpatient (CLI) | payer MEDICARE, OTHER, SELFPAY ==
[2023-11-06 12:44] LABS: Absolute Lymphocyte Count 2.92 X10^3/uL (0.83-4.51); Absolute Neutrophil Count 8.6 X10^3/uL (2.0-7.7); Basophil# 0.06 X10^3/uL; Basophil% 0.5 % (0-1); Eosinophil# 0.11 X10^3/uL; Eosinophils% 0.9 % (0-5); Hemoglobin 13.2 g/dL (12.0-15.0); Lymphocyte # 2.92 X10^3/ul (0.83-4.51); Mean Corp Hgb Conc 31.4 g/dL (32-36); Mean Corpuscular Hgb 30.8 pg (27.0-32.0); Mean Corpuscular Volume 97.9 fL (81-99); Mean Platelet Vol. 10.1 fl (6.2-12.0); Monocyte# 0.94 X10^3/uL; Monocyte% 7.4 % (0-10); NRBC Flagged by Analyzer 0 % (0-5); Neutrophil # 8.56 X10^3/uL (2.7-7.7); Neutrophil % 67.3 % (47-70); Platelet Count 370 K/mm3 (150-450); RBC Distribution Width CV 12.8 % (11.6-14.6); RBC Distribution Width SD 46.2 fl (35.1-43.9); Red Blood Count 4.29 M/mm3 (4.2-5.4); White Blood Count 12.7 K/mm3 (4.4-11.0)
[2023-11-06 13:08] LABS: ALB/GLOB Ratio 0.8 RATIO (0.9-2.4); AST(SGOT) 12 U/L (15-37); Alanine Aminotransfer ALT/SGPT 21 U/L (13-56); Albumin, Serum 3.3 g/dL (3.2-5.0); Alkaline Phosphatase 81 U/L (45-117); Anion Gap 5 (5-15); BUN 11 mg/dL (7-18); BUN/Creat Ratio 18.2 RATIO (10-20); Calcium,Total 9.5 mg/dL (8.5-10.1); Chloride 106 mmol/L (98-107); EST Glomerular Filtration Rate 105 mL/min (>60); Est Glom Filt Rate - Afr Amer 127 mL/min (>60); Globulin 3.9 g/dL (2.2-4.2); Glucose 93 mg/dL (74-106); Potassium 3.7 mmol/L (3.5-5.1); Protein, Total 7.2 g/dL (6.4-8.2); Sodium Level 140 mmol/L (136-145); Thyroid Stim Hormone (TSH) 1.34 uIU/mL (0.358-3.74)
== END | disposition home or self-care (01) ==
LOC: LAB.FUTURE 11:46 → POLAB3 11:46
PROVIDERS: PCP Family Medicine Geriatric Medicine; Visit Provider Family Medicine Geriatric Medicine
DX: R53.83 Other fatigue (principal); E55.9 Vitamin D deficiency, unspecified
CPT/HCPCS: 36415; 80053; 82306; 84443; 85025

== ENCOUNTER → 2024-04-17 | Outpatient (CLI) | payer MEDICARE, OTHER, SELFPAY | END | disposition home or self-care (01) | LOC: PSN 12:06 | PROVIDERS: PCP Family Medicine Geriatric Medicine; Referring Provider Family Medicine Geriatric Medicine; Visit Provider Family Medicine Geriatric Medicine | DX: R68.83 Chills (without fever) (principal) | CPT/HCPCS: 87631 ==

== ENCOUNTER → 2024-05-27 | Outpatient (CLI) | payer MEDICARE, OTHER, SELFPAY ==
[2024-05-27 11:42] LABS: Absolute Lymphocyte Count 2.06 X10^3/uL (0.83-4.51); Absolute Neutrophil Count 7.9 X10^3/uL (2.0-7.7); Basophil# 0.04 X10^3/uL; Basophil% 0.4 % (0-1); Eosinophil# 0.15 X10^3/uL; Eosinophils% 1.3 % (0-5); Hematocrit 40.5 % (37-47); Hemoglobin 13.2 g/dL (12.0-15.0); Lymphocyte # 2.06 X10^3/ul (0.83-4.51); Lymphocyte % 18.4 % (19-41); Mean Corp Hgb Conc 32.6 g/dL (32-36); Mean Corpuscular Hgb 31.7 pg (27.0-32.0); Mean Corpuscular Volume 97.4 fL (81-99); Mean Platelet Vol. 9.8 fl (6.2-12.0); Monocyte# 0.96 X10^3/uL; Monocyte% 8.6 % (0-10); NRBC Flagged by Analyzer 0 % (0-5); Neutrophil # 7.88 X10^3/uL (2.7-7.7); Neutrophil % 70.5 % (47-70); Platelet Count 352 K/mm3 (150-450); RBC Distribution Width SD 46.5 fl (35.1-43.9); Red Blood Count 4.16 M/mm3 (4.2-5.4); White Blood Count 11.2 K/mm3 (4.4-11.0)
[2024-05-27 12:09] LABS: Vitamin D,25 Hydroxy 25.9 ng/mL
--- NOTE | 2024-05-27 12:12 | RAD_ITS ---
STUDY: X-RAY - UNILATERAL RIBS ( RIGHT ) WITH CHEST REASON FOR EXAM: Female, 68 years old. Rib pain. TECHNIQUE - RIBS: 3 view(s) of the ribs. TECHNIQUE - CHEST: Single frontal view of the chest. COMPARISON: Chest dated July 18, 2020 FINDINGS - RIBS: Osteopenia of the osseous structures. No displaced rib fracture. FINDINGS - CHEST: The lungs are clear and expanded. There is no demonstrated pleural abnormality. Borderline cardiomegaly unchanged. Normal mediastinum and audra. Normal visualized pulmonary arteries. Stable aortic tortuosity. No abnormality of the visualized soft tissue structures of the upper abdomen. RAD/Ribs Uni Min 3V w/PA Chest IMPRESSION: RIBS: Osteopenia with no displaced rib fracture. CHEST: Stable chest with no acute finding. Electronically Signed: Hever Billingsley MD at 12:32 EDT ,
[2024-05-27 12:14] LABS: ALB/GLOB Ratio 0.9 RATIO (0.9-2.4); AST(SGOT) 13 U/L (15-37); Alanine Aminotransfer ALT/SGPT 25 U/L (13-56); Albumin, Serum 3.3 g/dL (3.2-5.0); Alkaline Phosphatase 75 U/L (45-117); Anion Gap 5 (5-15); BUN 9 mg/dL (7-18); BUN/Creat Ratio 16.8 RATIO (10-20); Calcium,Total 9.4 mg/dL (8.5-10.1); Chloride 106 mmol/L (98-107); Creatinine, Serum 0.54 mg/dL (0.55-1.02); EST Glomerular Filtration Rate 120 mL/min (>60); Est Glom Filt Rate - Afr Amer 145 mL/min (>60); Globulin 3.8 g/dL (2.2-4.2); Glucose 98 mg/dL (74-106); Potassium 3.8 mmol/L (3.5-5.1); Protein, Total 7.1 g/dL (6.4-8.2); Sodium Level 139 mmol/L (136-145)
== END | disposition home or self-care (01) ==
PROVIDERS: PCP Family Medicine Geriatric Medicine; Referring Provider Family Medicine Geriatric Medicine; Visit Provider Family Medicine Geriatric Medicine
DX: R07.81 Pleurodynia (principal); R53.83 Other fatigue; E55.9 Vitamin D deficiency, unspecified
CPT/HCPCS: 36415; 71101; 80053; 82306; 84443; 85025

== ENCOUNTER 2024-06-25 10:27 | Outpatient (CLI) | payer MEDICARE, OTHER, SELFPAY | END 2024-06-25 23:59 | disposition home or self-care (01) | LOC: POLAB3 10:35 | PROVIDERS: PCP Family Medicine Geriatric Medicine; Visit Provider Family Medicine Geriatric Medicine | DX: S41.102A Unspecified open wound of left upper arm, initial encounter (principal); B95.62 Methicillin resistant Staphylococcus aureus infection as the cause of diseases classified elsewhere | CPT/HCPCS: 87070; 87075; 87077; 87186; 87205; 87640 ==

== ENCOUNTER 2024-07-04 09:15 | Outpatient (RCR) | payer MEDICARE, OTHER, SELFPAY ==
[2024-06-27 09:14] VITALS: BP 141/78; PULSE 89; RESP 18; TEMP 36.7; BMI 21.0
--- NOTE | 2024-06-27 12:24 | PCM.WC.HP ---
History of Present Illness Date of Service: 06/27/24 Chief Complaint: left forearm skin tear History of Wound: Sarah is a pleasant 68 yo woman who presents to the wound center for evaluation and treatment of an ulcer of her left forearm that occurred when she was giving her grandchildren a bath and her arm slipped and her skin pulled back and she had bleeding and covered her arm with gauze to control bleeding. She removed the dressing on Sunday and the gauze was stuck in her ulcer and she was unable to remove it even after soaking it in warm water. She ultimately trimmed the gauze close to the edge of the ulcers and saw her PCP who referred her to the wound center for further treatment and prescribed her Keflex and gave her an injection with an antibiotic. She has been covering the area with gauze and coban and changing it daily. She has light drainage. She has a history of fragile skin and gets skin tears easily but has not had gauze get stuck like this. She has no other significant medical history. She denies odor, erythema, fever or chills. [facility] Medical History Irregular heart beat GERD (gastroesophageal reflux disease) history of spur removal Anemia Arthritis Home Medications ?Medication ?Instructions ?Recorded ?Last Taken ?Type epinephrine 0.3 mg/0.3 mL 0.3 mg (0.3 mL) IM X1 ##1 04/04/20 Unknown Rx injection, auto-injector pantoprazole 40 mg tablet,delayed 40 mg PO BID 04/04/20 Unknown History release epinephrine 0.3 mg/0.3 mL 0.3 mg (0.3 mL) IM X1 PRN 04/05/20 Unknown Rx injection, auto-injector Anaphylaxis ##1 celecoxib 200 mg capsule 200 mg PO DAILY 07/06/21 Unknown History ciprofloxacin HCl 500 mg tablet 500 mg PO BID #20 tabs 03/18/23 Unknown Rx (Cipro) hydrocodone-acetaminophen 5-325mg 1 tab PO Q6H PRN PRN Pain 3 days 03/18/23 Unknown Rx 5mg-325mg #10 TABLETS metronidazole 500 mg tablet 500 mg PO TID #30 tabs 03/18/23 Unknown Rx ondansetron 4 mg disintegrating 4 mg PO Q8H PRN PRN Nausea #14 tabs 03/18/23 Unknown Rx tablet phenazopyridine 200 mg tablet 200 mg PO TID 6 doses #6 tabs 03/18/23 Unknown Rx (Pyridium) cephalexin 500 mg capsule 500 mg PO Q6 #40 CAPSULES 05/13/23 Unknown Rx Allergy/AdvReac Type Severity Reaction Status Date / Time bee venom protein (honey bee) Allergy Anaphylaxis Verified 05/13/23 16:51 gabapentin Allergy DIZZY AND Verified 05/13/23 16:51 LIGHTHEADED no significant family history Surgical History History of hysterectomy History of appendectomy Social History Smoking Status: Never smoker alcohol intake: never ROS Constitutional Constitutional: Denies chills, fatigue or fever(s) Eyes Eyes: Denies blurry vision, change in vision or loss of vision ENT HEENT: Denies dysphagia, hearing loss or sore throat Cardiovascular Cardiovascular: Denies chest pain, edema or palpitations Respiratory/Chest Respiratory/Chest: Denies dry cough, dyspnea, dyspnea on exertion, productive cough or wheezing Gastrointestinal Gastrointestinal: Denies diarrhea, nausea or vomiting Genitourinary Genitourinary: Denies dysuria or polyuria Musculoskeletal Musculoskeletal: Denies arthralgias, joint stiffness or muscle weakness Integumentary Integumentary: Reports erythema and wounds Neurologic Neurologic: Denies dizziness, memory loss or weakness Psychiatric Psychiatric: Denies homicidal ideation or suicidal ideation Endocrine Endocrinology: Denies polydipsia, polyphagia or polyuria Hematologic/Lymphatic Hematologic/Lymphatic: Denies easy bleeding or easy bruising Allergic/Immunologic Allergic/Immunologic: Denies throat swelling, tongue swelling or urticaria Vital Signs Vital Signs Vital Signs: 06/27/24 09:14 Temperature 98.1 F Temperature Source Temporal Pulse Rate 89 Respiratory Rate 18 Blood Pressure 141/78 H Blood Pressure Mean 99 Blood Pressure Source Monitor Blood Pressure Position Semi-Fowlers Blood Pressure Location Left Arm Weight Weight: 52.163 kg Body Mass Index (BMI) 21.0 Physical Exam Const alert, oriented x3 and no apparent distress General Appearance: cooperative and comfortable HEENT normocephalic and head/scalp atraumatic Resp normal respiratory effort Effort and Inspection: able to speak in complete sentences Cardio regular rate and regular rhythm Skin Wounds: wounds noted Wound Narrative: as in clinical panel Psych mental status grossly normal, thought process normal, cooperative and affect normal Debridement Note Debridement Note Wound debrided: left forearm Laterality: Left Type of Debridement: Excisional debridement Anesthesia Used: 4% Lidocaine Solution and Cetacaine Depth: Down to and including healthy tissue and in the subcutaneous layer Percentage of wound debrided: 100 Instrument Used: 5mm curette Tissue Removed: Yellow slough, devitalized tissue Severity: Fat Layer Exposed Amount of bleeding with debridement: Mild Bleeding Controlled with: Compression and gauze Patient tolerated procedure: Patient tolerated procedure well Post-Debridement Measurements and Additional Note: Post-Debridement Measurements/Treatment - Nurse 1 - General Ulcer Assessment Start: 06/27/24 09:14 Freq: Status: Active Protocol: PHILIP Activity Type Activity Date Activity User E-sign Co-sign Detail Recorded Client Recorded Date Recorded By Document 06/27/24 09:14 [id number] 06/27/24 09:19 RB 06/27/24 09:14 - Today's Visit Information Type of service Follow-up Visit (Physician/METAL MODEL BUILDER ) Arrival Mode Ambulatory Transfer Assistance None Patient Identification Verified (Name & Yes ) Patient Requires Transmission-Based No Precautions Height and Weight Height 5 ft 2 in Weight 52.163 kg Weight in Pounds 115.0 lbs Body Mass Index (BMI) 21.0 BMI Classification Normal BSA - Caryl 1.51 Vital Signs Temperature (97.8 F-99.1 F) 98.1 F Temperature Source Temporal Pulse Rate (60-100) 89 Pulse Location Monitor Respiratory Rate (12-18) 18 Respiratory rate source Observation Blood Pressure (90/60-120/80) 141/78 H Blood Pressure Mean 99 Source Monitor Position Semi-Fowlers Blood Pressure Location Left Arm History Since Last Visit- (Skip if this is Patient's initial visit) Have you changed medications since your No last visit? Any new allergies or adverse reactions No Had a fall/change in ADL's that may No increase risk of falls Signs or symptoms of abuse and/or No neglect since last visit Have you been in the hospital since your No last visit? Has dressing in place as prescribed Yes Has compression in place as prescribed No Has offloadiing in place as prescribed No Experienced any changes in pain level or No management Pain Scale: 0-10 Numeric Is Patient Pain Free? Yes Communication Assessment Preferred language [place] Television Analyzer Required No Able to Read Yes Able to Write Yes Communication Tools None Caregiver Communication Skills No Impairment Impairment Right Hearing Abillity Normal Left Hearing Abillity Normal Visual Assistive Devices Glasses Teaching Assessment Preferences Verbal,Written, Demonstration Barriers to Learning None Readiness To Learn Good Willingness to Engage in Self Management Med Activies Readiness to Engage in Self Management Med Activities Anxiety Level Calm Cooperation Cooperative Perception Coherent Interest in Health Problem Asks Questions Education Importance Acknowledges Need Does Patient Smoke tobacco or other No substances Smoking Status Never smoker Is Patient Diabetic No Functional Assessment Recent Decline in Ability to Perform Denies Any Declines Assistive Device With Patient No Culture/Congregational/Pharmacovigilance Specialist Cultural/Congregational Needs that may affect No Treatment Plan Would you allow our hospital towboat pilot to No meet you for the purpose of spiritual/ emotional support? Pharmacovigilance Specialist to contact place of scientology No Teaching: Wound Center *Welcome to the Wound Center -Person Taught Patient -Teaching Method Discussion, Demonstration -Response to teaching Verbalize Understanding WC - Nurse 1 - General Ulcer Measurement Start: 06/27/24 09:14 Freq: Status: Active Protocol: Activity Type Activity Date Activity User E-sign Co-sign Detail Recorded Client Recorded Date Recorded By Document 06/27/24 09:14 RB [id number] 06/27/24 09:19 RB 06/27/24 09:14 Wound Center Nurse 1 1. left forearm -Combined with other wound No -Current Size (cm) - Length 7 -Current Size (cm) - Width 1 -Current Size (cm) - Depth 0.1 -Total Square Cm 7 -Photo Taken Yes -Tunneling No -Undermining/Tunneling No -Circular Undermining No -Exudate Amt Medium -Exudate Type Serosanguineous -Wound Margin Distinct, Outline Attached -Granulation Amt Medium (34-66%) -Granulation Quality [place] -Slough/Fibrin Yes -Necrosis Amt Small (1-33%) -Necrotic Tissue Type Adherent Slough -Structure Exposed N/A -Texture (Mariaa-wound Skin Appearance) Assessed -Moisture (Mariaa-wound Skin Appearance) Assessed -Color (Mariaa-wound Skin Appearance) Assessed -Temperature (Mariaa-wound Skin No Abnormality Appearance) (Pt Warm) -Tenderness on Palpation (Mariaa-wound No Skin Appearance) -Ulcer Cleansing Wound Cleanser -Foul Odor after Cleansing No -Anesthetic Used 4% Lidocaine Solution -Wound Comment(s) gauze embedded into Left forearm WC - Nurse 2 - General Ulcer CM Notes Start: 06/27/24 09:14 Freq: Status: Active Protocol: Activity Type Activity Date Activity User E-sign Co-sign Detail Recorded Client Recorded Date Recorded By Document 06/27/24 09:36 [email or web address] 06/27/24 09:48 06/27/24 09:36 Wound Center Nurse 2 -Time 09:40 -Correct Patient Yes -Correct Side, Site, Position Yes -Correct Procedure Yes -Procedure Performed Yes -Type of Procedure Debridement -Clinical Debridement Subcutaneous -Tissue Removed Subcutaneous -Post Debridement (cm) - Length 6.8 -Post Debridement (cm) - Width 0.5 -Post Debridement (cm) - Depth 0.1 -Total Square (Post) (cm) 3.40 -Area of Debridement (cm) - Length 6.8 -Area of Debridement (cm) - Width 0.5 -Total Square (Area) (cm) 3.40 -Tunneling No -Undermining/Tunneling No -Circular Undermining No -Wound/Ulcer Outcome Not Healed -Ulcer Cleansing Rinsed/ Irrigated with Saline -Foul Odor after Cleansing No -Bioengineered Tissue No -Bleeding Controlled with Pressure -Treatment Response Procedure Tolerated Well -Debridement - Subq, 1st 20sq cm Yes Pain Scale: 0-10 Numeric Is Patient Pain Free? Yes - Nurse 3 - General Ulcer D/C NN Start: 06/27/24 09:14 Freq: Status: Active Protocol: Activity Type Activity Date Activity User E-sign Co-sign Detail Recorded Client Recorded Date Recorded By Document 06/27/24 10:13 DS [id number] 06/27/24 10:21 DS 06/27/24 10:13 Wound Care Center Nurse 3 1. left forearm -Ulcer Cleansing Rinsed/ Irrigated with Saline -Primary Dressing Applied C Hydrogel ($), Mepilex Border -Other Covering adaptic, tubigrip -Mepilex Border 1 Pain Scale: 0-10 Numeric Is Patient Pain Free? Yes - Visit Discharge Discharge Condition Stable Ambulatory Status Ambulatory Transportation Private Auto Medication Reconcilliation completed & Yes provided to patient/care provider Clinical Summary of Care Provided Yes Assessment/Plan Assessment/Plan (1) Skin tear of left forearm without complication: CODE(S): S51.812A - Laceration without foreign body of left forearm, initial encounter QUALIFIERS: Encounter type: sequela Qualified Code(s): S51.812S - Laceration without foreign body of left forearm, sequela (2) Wound of left upper extremity: CODE(S): S41.102A - Unspecified open wound of left upper arm, initial encounter QUALIFIERS: Encounter type: sequela Qualified Code(s): S41.102S - Unspecified open wound of left upper arm, sequela (3) Skin ulcer with fat layer exposed: CODE(S): L98.492 - Non-pressure chronic ulcer of skin of other sites with fat layer exposed (4) Ulcer of upper extremity with fat layer exposed: CODE(S): L98.492 - Non-pressure chronic ulcer of skin of other sites with fat layer exposed PLAN: Plan Debridement performed today in clinic as annotated above. At home wound-care instructions: The patient will wash with antibacterial soap and water and then will dress her left arm ulcer with hydrogel and adaptic and cover with a silicone bordered dressing for light drainage and due to her fragile skin a silicone bordered dressing is needed to avoid further skin tear. Keep dressing clean and dry. Off-loading: The patient was instructed to avoid pressure and friction on the affected areas. Reposition every 2 hours at minimum. Avoid prolonged standing and/or dangling of legs. When seated, feet should be elevated at chest level. Frequent ambulation is encouraged. Diet: Patient encouraged to increase protein intake while taking caution to avoid high carbohydrate and/or sugar intake. Labs/cultures/imaging: none at this time Follow-up: Return in 1 week for wound care follow up. Return sooner or report to the emergency room should symptoms worsen, or new symptoms arise. Note: [employer] speech recognition wireless sales manager software was used to create portions of this document. Sound-alike and misspelled words, as well as other wireless sales manager errors may be contained in the documentation.
--- NOTE | 2024-07-01 11:45 | WC ---
PHOTO LEFT FOREARM 06/27/24
[2024-07-04 09:36] VITALS: BP 131/77; PULSE 84; RESP 18; TEMP 36.4; BMI 21.0
--- NOTE | 2024-07-04 14:11 | PN.PCM_ITS ---
History of Present Illness Date of Service: 07/04/24 Chief Complaint: left forearm skin tear History of Wound: Sarah is a pleasant 68 yo woman who presents to the wound center for evaluation and treatment of an ulcer of her left forearm that occurred when she was giving her grandchildren a bath and her arm slipped and her skin pulled back and she had bleeding and covered her arm with gauze to control bleeding. She removed the dressing on Sunday and the gauze was stuck in her ulcer and she was unable to remove it even after soaking it in warm water. She ultimately trimmed the gauze close to the edge of the ulcers and saw her PCP who referred her to the wound center for further treatment and prescribed her Keflex and gave her an injection with an antibiotic. She has been covering the area with gauze and coban and changing it daily. She has light drainage. She has a history of fragile skin and gets skin tears easily but has not had gauze get stuck like this. She has no other significant medical history. She denies odor, erythema, fever or chills. Subjective Subjective Sarah returns today for treatment of her left forearm. Her ulcer is healed. She tolerated treatment with adaptic and hydrogel. Objective Data Objective Data Vital Signs: Vital Signs Temp Pulse Resp BP O2 Del Method 97.5 F L 84 18 131/77 H Room Air 07/04/24 09:36 07/04/24 09:36 07/04/24 09:36 07/04/24 09:36 07/04/24 09:36 Oxygen Delivery Method Room Air Weight: 52.163 kg Body Mass Index (BMI) 21.0 Physical Exam Const alert, oriented x3 and no apparent distress General Appearance: cooperative and comfortable HEENT normocephalic and head/scalp atraumatic Resp normal respiratory effort Effort and Inspection: able to speak in complete sentences Cardio regular rate and regular rhythm Skin Wounds: wounds noted Wound Narrative: as in clinical panel Psych mental status grossly normal, thought process normal, cooperative and affect normal Debridement Note Debridement Note Wound debrided: left forearm Laterality: Left Type of Debridement: Selective debridement Depth: Down to and including healthy tissue Percentage of wound debrided: 100 Instrument Used: 3mm curette Tissue Removed: devitalized tissue Severity: Limited To Skin Breakdown Amount of bleeding with debridement: None Patient tolerated procedure: Patient tolerated procedure well Assessment/Plan Assessment/Plan (1) Skin tear of left forearm without complication: CODE(S): S51.812A - Laceration without foreign body of left forearm, initial encounter QUALIFIERS: Encounter type: sequela Qualified Code(s): S51.812S - Laceration without foreign body of left forearm, sequela (2) Wound of left upper extremity: CODE(S): S41.102A - Unspecified open wound of left upper arm, initial encounter QUALIFIERS: Encounter type: sequela Qualified Code(s): S41.102S - Unspecified open wound of left upper arm, sequela (3) Skin ulcer with fat layer exposed: CODE(S): L98.492 - Non-pressure chronic ulcer of skin of other sites with fat layer exposed (4) Ulcer of upper extremity with fat layer exposed: CODE(S): L98.492 - Non-pressure chronic ulcer of skin of other sites with fat layer exposed PLAN: Plan Debridement performed today in clinic as annotated above. At home wound-care instructions: She will keep using adaptic and silicone bordered dressing for the next few days and then keep moist with lotion. Off-loading: The patient was instructed to avoid pressure and friction on the affected areas. Reposition every 2 hours at minimum. Avoid prolonged standing and/or dangling of legs. When seated, feet should be elevated at chest level. Frequent ambulation is encouraged. Diet: Patient encouraged to increase protein intake while taking caution to avoid high carbohydrate and/or sugar intake. Labs/cultures/imaging: none at this time Follow-up: She is discharged from treatment at this time. It has been a pleasure treating her. Note: [employer] speech recognition supply coordinator software was used to create portions of this document. Sound-alike and misspelled words, as well as other supply coordinator errors may be contained in the documentation.
--- NOTE | 2024-07-07 11:04 | WC ---
PHOTO 07/04/24 LEFT FOREARM
== END 2024-07-04 13:58 | disposition home or self-care (01) ==
LOC: WC 09:15
PROVIDERS: PCP Family Medicine Geriatric Medicine; Referring Provider Family Medicine Geriatric Medicine; Visit Provider Family Medicine
DX: L98.492 Non-pressure chronic ulcer of skin of other sites with fat layer exposed (principal); S51.812S Laceration without foreign body of left forearm, sequela; W22.09XS Striking against other stationary object, sequela; Z79.1 Long term (current) use of non-steroidal anti-inflammatories (NSAID); Z79.899 Other long term (current) drug therapy
CPT/HCPCS: 11042; 97597; 99213; G0463

== ENCOUNTER 2024-09-21 04:30 | Emergency (ER) | payer MEDICARE, OTHER, SELFPAY ==
[2024-09-21 04:31] VITALS: BP 132/60; PULSE 105; RESP 20; TEMP 37.1; O2SAT 99; BMI 20.9
[2024-09-21 04:34] VITALS: BP 132/60; PULSE 101; RESP 20; TEMP 37.1; O2SAT 99
--- NOTE | 2024-09-21 04:38 | EDS_ITS ---
HPI History of Present Illness Chief Complaint: General Illness Informant: patient Narrative Narrative: Patient is a 68-year-old female with past medical history of GERD and osteoarthritis. She states she has had 4 to 5 days of congestion drainage and cough. She denies any known sick contacts or history of lung disorders such as asthma COPD or emphysema. She states that because of the persistent cough she is concerned she may have developed pneumonia and secondary to this comes to the hospital for evaluation. [facility] Medical History Irregular heart beat GERD (gastroesophageal reflux disease) history of spur removal Anemia Arthritis Home Medications ?Medication ?Instructions ?Recorded ?Last Taken ?Type epinephrine 0.3 mg/0.3 mL 0.3 mg (0.3 mL) IM X1 ##1 04/04/20 Unknown Rx injection, auto-injector pantoprazole 40 mg tablet,delayed 40 mg PO BID 04/04/20 Unknown History release epinephrine 0.3 mg/0.3 mL 0.3 mg (0.3 mL) IM X1 PRN 04/05/20 Unknown Rx injection, auto-injector Anaphylaxis ##1 azelastine 137 mcg (0.1 %) nasal 2 spray intranasal BID #30 mL 09/21/24 Unknown Rx spray hydrocodone-homatropine 5 mg-1.5 5 ml PO 4X/DAY PRN cough 7 days 09/21/24 Unknown Rx mg/5 mL (5 mL) oral syrup (Hycodan) #140 mL prednisone 20 mg tablet 40 mg (2 x 20 mg) PO DAILY 5 days 09/21/24 Unknown Rx #10 tabs Allergy/AdvReac Type Severity Reaction Status Date / Time bee venom protein (honey bee) Allergy Anaphylaxis Verified 09/21/24 04:31 gabapentin Allergy DIZZY AND Verified 09/21/24 04:31 LIGHTHEADED Surgical History History of hysterectomy History of appendectomy Social History Smoking Status: Never smoker alcohol intake: never ROS ROS ED Constitutional Constitutional ED: Denies chills or fever(s) Eyes Eyes: Denies blurry vision or change in vision ENT ENT ED: Reports rhinorrhea and sore throat Cardiovascular Cardiovascular: Denies chest pain Respiratory/Chest Respiratory/Chest: Reports cough and dyspnea Gastrointestinal Gastrointestinal: Denies abdominal pain, diarrhea, nausea or vomiting Genitourinary Genitourinary ED: Denies dysuria Musculoskeletal Musculoskeletal: Reports myalgias Integumentary Denies rash Neurologic Neurologic: Denies headache(s) Hematologic/Lymphatic Hematologic/Lymphatic: Denies easy bleeding or easy bruising Allergic/Immunologic Allergic/Immunologic ED: Denies mouth swelling or tongue swelling EXAM Physical Exam Const Vital Signs: 09/21/24 04:31 09/21/24 04:31 09/21/24 04:34 Temperature 98.8 F 98.8 F Temperature Source Oral Oral Pulse Rate 105 H 101 H Respiratory Rate 20 H 20 H Respiratory Effort Normal Non-Labored Respiratory Pattern Normal Blood Pressure 132/60 H 132/60 H Blood Pressure Mean 84 84 Pulse Ox 99 99 Oxygen Delivery Method Room Air Room Air 09/21/24 05:34 09/21/24 06:34 Temperature 98.8 F 98.4 F Temperature Source Oral Oral Pulse Rate 99 100 Respiratory Rate 20 H 22 H Respiratory Effort Respiratory Pattern Blood Pressure 113/62 104/59 L Blood Pressure Mean 79 74 Pulse Ox 93 94 Oxygen Delivery Method Room Air Room Air Positive well nourished and well developed General Appearance ED: well developed; Negative for pallor HEENT HEENT Narrative: Nasal mucosa is hyperemic and boggy There is cobblestoning noted in the posterior pharynx consistent with sinus drainage without airway edema or compromise No secondary findings in the posterior pharynx to suggest infection Eyes PERRL and EOMs intact bilaterally General Eye ED: Negative for scleral icterus Neck supple and No no JVD Neck Narrative: No nuchal rigidity or meningeal signs Resp normal respiratory effort Resp Narrative: Breath sounds are diminished throughout with diffuse expiratory wheeze however no nasal flaring retractions tachypnea or accessory muscle use Cardio regular rate and regular rhythm Extremity normal to inspection Extremity Narrative: No asymmetric edema no pitting edema negative Homans' sign bilaterally Neuro oriented x3, CN's II-XII intact bilaterally and no sensory deficits noted Sensorium / Orientation: alert Motor Exam: strength 5/5 throughout Psych mental status grossly normal Skin no rashes or lesions noted General Skin Exam: Negative for jaundice or pallor MDM MDM MDM Narrative Medical decision making narrative: Patient arrived to the ER in no acute respiratory distress. Constellation of symptoms are most consistent with a viral infection. However she could also have potential pneumonia or pneumothorax or pleural effusion. As vitals are stable and she is not showing signs of systemic infection I felt no need for blood work but a chest x-ray was obtained to check for potential pneumonia. X- ray revealed no acute finding indicating patient has a viral URI. As she is not in respiratory distress or requiring supplemental oxygen there is no need for admission and therefore should be treated symptomatically and is otherwise safe for discharge. History & Record Review Discussion w/independent historian: Patient Radiography Diagnostic Testing: Clinical Impression(s) from Imaging Studies Chest X-Ray 09/21/24 05:35 IMPRESSION: No acute pulmonary finding. Electronically Signed: Vikash Cutler MD at 6:38 EST , Chest x-ray as interpreted by the emergency medicine physician reveals no acute infiltrate pneumothorax or pleural effusion Discharge Plan Triage Chief Complaint: General Illness ED Provider: Darell Davidson Dx/Rx/DC Orders Clinical Impression: Viral upper respiratory tract infection with cough, GERD (gastroesophageal reflux disease), Osteoarthritis Instructions: ED URI, Viral, No Abx (Adult) Prescriptions: New prednisone 20 mg tablet 40 mg PO DAILY 5 Days Qty: 10 0RF azelastine 137 mcg (0.1 %) spray,non-aerosol 2 spray intranasal BID Qty: 30 0RF Rx Instructions: administer into each nostril hydrocodone-homatropine [Hycodan] 5-1.5 mg/5 mL (5 mL) syrup 5 ml PO 4X/DAY PRN (Reason: cough) 7 Days Qty: 140 0RF No Action pantoprazole 40 MG tablet 40 mg PO BID epinephrine 0.3 MG syringe 0.3 mg IM X1 Qty: 1 0RF epinephrine 0.3 MG syringe 0.3 mg IM X1 PRN (Reason: Anaphylaxis) Qty: 1 0RF Primary Care Provider: Alex Ovalles Chi Referrals: Alex Ovalles Chi, MD [Primary Care Provider] - Activity Restrictions/Additional Instructions: Your test for COVID influenza and RSV was negative and your chest x-ray did not reveal any type of pneumonia. This indicates you have another viral infection causing your congestion and cough and this will last on average 14 to 21-day. Take the prescribed medication as directed to help control symptoms and return to the ER should you have any further concern. Print Language: Mauritanian Disposition Disposition: Home, Self Care Discharge Date/Time: 09/21/24 07:08
[2024-09-21] MEDS: dexAMETHasone 10 MG/ML Vial PO.IVFORM (05:20)
[2024-09-21] MEDS: guaiFENesin/Codeine 5 ML UDC 10 ML PO (05:20)
[2024-09-21 05:34] VITALS: BP 113/62; PULSE 99; RESP 20; TEMP 37.1; O2SAT 93
--- NOTE | 2024-09-21 05:35 | RAD_ITS ---
INDICATION: cough EXAMINATION/TECHNIQUE: X-RAY - XR Chest 2 Views COMPARISON: Prior study dated: 05/27/24 FINDINGS: LINES/DEVICES: None. LUNGS: The lungs are well expanded. No consolidation, edema or effusion. No pneumothorax. Calcifications at the right midlung unchanged. MEDIASTINUM AND CARDIOVASCULAR STRUCTURES: Cardiac silhouette not enlarged. Central airways and mediastinal contour are unremarkable. BONES AND SOFT TISSUES: No acute abnormality. RAD/Chest PA and Lateral IMPRESSION: No acute pulmonary finding. Electronically Signed: Vikash Cutler MD at 6:38 EST ,
[2024-09-21 06:34] VITALS: BP 104/59; PULSE 100; RESP 22; TEMP 36.9; O2SAT 94
[2024-09-21 06:59] VITALS: BP 106/51; PULSE 92; RESP 20; TEMP 36.7; O2SAT 94
== END 2024-09-21 07:08 | disposition home or self-care (01) ==
PROVIDERS: Emergency Provider Emergency Medicine; PCP Family Medicine Geriatric Medicine; Visit Provider Emergency Medicine
DX: J06.9 Acute upper respiratory infection, unspecified (principal); M19.90 Unspecified osteoarthritis, unspecified site; K21.9 Gastro-esophageal reflux disease without esophagitis
CPT/HCPCS: 71046; 87631; 99282

== ENCOUNTER → 2024-11-24 | Outpatient (CLI) | payer MEDICARE, OTHER, SELFPAY ==
[2024-11-24 10:31] LABS: Absolute Lymphocyte Count 2.35 X10^3/uL (0.83-4.51); Absolute Neutrophil Count 7.6 X10^3/uL (2.0-7.7); Basophil# 0.06 X10^3/uL; Basophil% 0.6 % (0-1); Eosinophil# 0.06 X10^3/uL; Eosinophils% 0.6 % (0-5); Hematocrit 37.8 % (37-47); Hemoglobin 12.4 g/dL (12.0-15.0); Lymphocyte # 2.35 X10^3/ul (0.83-4.51); Lymphocyte % 21.8 % (19-41); Mean Corp Hgb Conc 32.8 g/dL (32-36); Mean Corpuscular Hgb 32.3 pg (27.0-32.0); Mean Corpuscular Volume 98.4 fL (81-99); Mean Platelet Vol. 10.2 fl (6.2-12.0); Monocyte# 0.68 X10^3/uL; Monocyte% 6.3 % (0-10); NRBC Flagged by Analyzer 0 % (0-5); Neutrophil # 7.57 X10^3/uL (2.7-7.7); Platelet Count 316 K/mm3 (150-450); RBC Distribution Width CV 13.6 % (11.6-14.6); RBC Distribution Width SD 49.1 fl (35.1-43.9); Red Blood Count 3.84 M/mm3 (4.2-5.4); White Blood Count 10.8 K/mm3 (4.4-11.0)
[2024-11-24 11:43] LABS: ALB/GLOB Ratio 1.6 RATIO (0.9-2.4); AST(SGOT) 20 U/L (<=31); Alanine Aminotransfer ALT/SGPT 17 U/L (<=34); Albumin, Serum 4.1 g/dL (3.4-4.8); Alkaline Phosphatase 72 U/L (35-104); Anion Gap 11 (5-15); BUN 11 mg/dL (4-19); Calcium 8.9 mg/dL (7.6-11.0); Carbon Dioxide 24.8 mmol/L (22.0-29.0); Chloride 104 mmol/L (96-108); Creatinine, Serum 0.51 mg/dL (0.70-1.20); EST Glomerular Filtration Rate 101 (>60); Globulin 2.5 g/dL (2.2-4.2); Glucose 134 mg/dL (70-99); Potassium 3.6 mmol/L (3.3-5.1); Protein, Total 6.6 g/dL (5.9-8.4); Sodium Level 140 mmol/L (133-145); Total Bilirubin 0.23 mg/dL (0.00-1.30); Vitamin D,25 Hydroxy 28.5 ng/mL (30-100)
== END | disposition home or self-care (01) ==
LOC: POLAB3 10:04
PROVIDERS: PCP Family Medicine Geriatric Medicine; Visit Provider Family Medicine Geriatric Medicine
DX: R53.83 Other fatigue (principal); E55.9 Vitamin D deficiency, unspecified
CPT/HCPCS: 36415; 80053; 82306; 84443; 85025

== ENCOUNTER → 2025-01-06 | Outpatient (CLI) | payer MEDICARE, OTHER, SELFPAY ==
--- NOTE | 2025-01-06 09:55 | RAD_ITS ---
PROCEDURE: LUMBAR SPINE 2 OR 3 VIEWS 01/06/2025 REASON FOR EXAM: LUMBAR DEGENERATIVE DISC DISEASE TECHNIQUE: 3 view(s) of the lumbar spine, AP, lateral and coned-down L5-S1 view COMPARISON: None available FINDINGS: 5 [id number] lumbar vertebral body types. No fracture. Moderate appearing disc space narrowing L1-2. Severe appearing disc space narrowing with degenerative endplate changes and small anterior corner osteophyte formation L2-3. Minimal retrolisthesis L2 on L3 and suggestion of mild right lateral positioning of L2 on L3 on the AP view. Mild disc space narrowing L4-5. Aortic atherosclerotic calcifications. RAD/Lumbar Spine 2 or 3 Views IMPRESSION: Multilevel spondylosis/discogenic change as above appears greatest at L2-3. Reading Location: [id number]
== END | disposition home or self-care (01) ==
PROVIDERS: PCP Family Medicine Geriatric Medicine; Referring Provider Clinical Nurse Specialist Adult Health; Visit Provider Clinical Nurse Specialist Adult Health
DX: M51.369 Other intervertebral disc degeneration, lumbar region without mention of lumbar back pain or lower extremity pain (principal)
CPT/HCPCS: 72100

== ENCOUNTER → 2025-02-06 | Outpatient (CLI) | payer MEDICARE, OTHER, SELFPAY ==
[2025-02-06 11:19] LABS: Prothrombin Time (Protime)PT. 12.9 SECONDS (11.7-14.9)
== END | disposition home or self-care (01) ==
LOC: LAB 09:35
PROVIDERS: PCP Family Medicine Geriatric Medicine; Referring Provider Anesthesiology Pain Medicine; Visit Provider Anesthesiology Pain Medicine
DX: R23.3 Spontaneous ecchymoses (principal)
CPT/HCPCS: 36415; 85610

== ENCOUNTER → 2025-03-24 | Outpatient (CLI) | payer MEDICARE, OTHER, SELFPAY | END | disposition home or self-care (01) | PROVIDERS: PCP Family Medicine Geriatric Medicine; Referring Provider Family Medicine Geriatric Medicine; Visit Provider Family Medicine Geriatric Medicine | DX: N39.0 Urinary tract infection, site not specified (principal) | CPT/HCPCS: 87086; 87088 ==

== ENCOUNTER → 2025-03-25 | Outpatient (CLI) | payer MEDICARE, OTHER, SELFPAY ==
--- NOTE | 2025-03-25 06:58 | CT_ITS ---
PROCEDURE: ABDOMEN/PELVIS WITH CONTRAST 03/25/2025 REASON FOR EXAM: ABD PAIN TECHNIQUE: ABDOMEN/PELVIS WITH CONTRAST Coronal and Sagittal reconstruction series were provided. CONTRAST: 98 cc Isovue 370 One or more dose reduction techniques were used (e.g., Automated exposure control, adjustment of the mA and/or kV according to patient size, use of iterative reconstruction technique. RADIATION DOSE SUMMARY: DLP: 622.86 mGycm COMPARISON: May 02, 2023 FINDINGS: Lung bases: Clear. There is a 2.8 cm hiatal hernia. Liver: Unremarkable Gallbladder: Absent Spleen: the spleen is normal in size. Splenic granulomas are noted. There is a 0.8 cm low-density lesion in the lower pole of the spleen, unchanged. Pancreas: There is fatty atrophy of the head of the pancreas, similar to the prior. Adrenals: Unremarkable Kidneys: There is a 2.6 cm cyst in the midpole of the left kidney. Bladder: Unremarkable Reproductive Organs: Unremarkable Bowel: There is a moderate stool load. Diverticulosis is visible in the sigmoid colon with no visible acute diverticulitis. Small bowel loops are not distended. Appendix: Normal Lymph nodes: There is no pathologic adenopathy by size criteria. Vasculature: Atherosclerotic calcifications are noted. Peritoneum / Retroperitoneum: There is a 1.0 x 1.4 cm uncomplicated fat containing left inguinal hernia. Bones: CT/Abdomen/Pelvis WITH Contrast IMPRESSION: There is a 2.8 cm hiatal hernia. There is a 0.8 cm low-density lesion in the lower pole of the spleen, unchanged . There is fatty atrophy of the head of the pancreas, similar to the prior. There is a 2.6 cm cyst in the midpole of the left kidney. There is a 1.0 x 1.4 cm uncomplicated fat containing left inguinal hernia. Reading Location: [facility]
--- OUTSIDE RECORDS SUMMARY | 2025-03-25 07:00 | XMS RPT_ITS | CCD ---
Author Organization [facility] Care Team Providers [employer] Sales Consultant Name Role Phone Corie Cadet Unavailable Alexis Gomez Unavailable Madelin Morejon Unavailable Vishal Pierson Unavailable Nicolas Ortiz Unavailable Katie Hernandez Unavailable Unavailable Cadence Harrison E Unavailable Tiffanie Palmer Unavailable Unavailable Slarb, Christina Unavailable Unavailable Unavailable Unavailable Corie Cadet Attending Unavailable Corie Cadet Referring Unavailable Corie Cadet Consulting Unavailable Jaden Ac Unavailable Unavailable Isidro Dallas Unavailable Tiffanie Wright Unavailable Unavailable Jaden Ac Unavailable Unavailable MessengerTiffanie Unavailable Unavailable Jyoti Elizondo Unavailable Unavailable Jaden Shepard Unavailable Unavailable Sasha Verdin Unavailable Unavailable Corie Cadet DO Unavailable Dr. Alexis Gomez Unavailable [phone] Madelin Morejon MD Unavailable Vishal Pierson MD Unavailable Lisa Dallasin Unavailable Nicolas Ortiz Unavailable Sasha Verdin LPN Unavailable Unavailable Jaden Shepard LPN Unavailable Unavailable Tiffanie Palmer RN Unavailable Unavailable Slarb TRAFFIC RATE CLERK, Christina Unavailable Unavailable Unavailable Unavailable Corie Cadet DO Unavailable Dr. Alexis Gomez Unavailable Dr. Madelin Morejon MD Unavailable [phone] Vishal Pierson MD Unavailable Saran Cleaning MD Unavailable Isidro Dallas Unavailable AngelNicolas helm Unavailable Slacynthia TRAFFIC RATE CLERK, Christina Unavailable Unavailable Devyn TRAFFIC RATE CLERK, Jaden Unavailable Unavailable Spencer RN, Tiffanie Unavailable Unavailable Lambert TRAFFIC RATE CLERK, Sasha Unavailable Unavailable Unavailable Unavailable Gravius BOLOGNA LACER, Marti Unavailable Unavailable Corie Cadet DO Unavailable Dr. Corie Cadet Primary Care Provider [phone] Dr. David Daily Attending Provider [phone] Carbon BOLOGNA LACER, Kayela Unavailable Unavailable Anais TRAFFIC RATE CLERK, Margo Unavailable Unavailable Dr. Corie Cadet Primary Care Provider [phone] Dr. David Daily Attending Provider [phone] David Daily Referring Provider [phone] Corie Cadet DO Primary Care Provider Dr. Corie Cadet Primary Care Provider [phone] Dr. David Daily Attending Provider [phone] KAYLA Ocasio Referring Provider [phone] Cony TRAFFIC RATE CLERK, Downs Unavailable Unavailable Jazz Recinos MA Unavailable Unavailable Alex Ovalles Chi Primary Care Provider Rhys Everett Unavailable DR CORIE CADET DO Primary Care Physician [phone] ERIKA SUN MD Attending Unavailable DR CORIE CADET DO Primary Care Unavailab Alex Mae Chi Primary Care Provider Dr. Alex Ovalles MD, Chi Primary Care Provider [phone] Dr. Darell Davidson DO Attending Provider Dr. Darell Davidson DO Emergency Provider Josr BAKER, Dr. Alex Rodriguez Attending Provider NP. Padmini Drummond Attending Provider [phone] NP. Padmini Drummond Referring Provider JOSEPH CACERES Attending Unavailable JOSR, ALEX CHI Primary Care Unavailable JOSEPH CACERES Referring Unavailable SIDDIQI, JOE K Referring Unavailable JOSR, ALEX CHI Primary Care Unavailable JOSEPH CACERES Attending Unavailable SIDDIQI, JOE K Referring Unavailable SIDDIQI, JOE K Attending Unavailable JOSR, ALEX CHI Primary Care Unavailable Josr , Dr. Alex Rodriguez Primary Care Provider [phone] Angel BAKER, Dr. Berrios Attending Provider Angel BAKER, Dr. Berrios Referring Provider [phone] Josr, Alex Chi Attending Unavailable Josr, Alex Chi Primary Care Unavailable [place] gaines Attending Unavailable [place], Padmini Referring Unavailable Josr, Alex Chi Primary Care Unavailable Darell Davidson Attending Unavailable Josr, Alex Chi Primary Care Unavailable Yash Ortiz Attending Unavailable Yash Ortiz Referring Unavailable Josr, Alex Chi Primary Care Unavailable Josr, Alex Chi Primary Care Unavailable Josr, Alex Chi Attending Unavailable Josr, Alex Chi Referring Unavailable Josr, Alex Chi Primary Care Unavailable Josr, Alex Chi Attending Unavailable Josr, Alex Chi Referring Unavailable Josr, Alex Chi Primary Care Unavailable Josr, Alex Chi Attending Unavailable Josr, Alex Chi Primary Care Unavailable Casandra Sepulveda Attending Unavailable Josr, Alex Chi Referring Unavailable Allergies Allergy Classification Reported Allergen(s) Allergy Type Date of Onset Reaction(s) Facility zolpidem (4 sources) zolpidem Drug Allergy [facility] Work Phone: (1 source) allergy to substance [facility] Work Phone: (1 source) allergy to substance [facility] Work Phone: (1 source) allergy to substance [facility] Work Phone: (1 source) allergy to substance [facility] Work Phone: (13 sources) zolpidem Drug Allergy [facility] Work Phone: (1 source) Allergy to substance (finding) [facility] Work Phone: (1 source) Allergy to substance (finding) [facility] Work Phone: (1 source) Allergy to substance (finding) [facility] Work Phone: (1 source) Allergy to substance (finding) [facility] Work Phone: (1 source) Allergy to substance (finding) [facility] Work Phone: (1 source) Allergy to substance (finding) [facility] Work Phone: (1 source) Allergy to substance (finding) [facility] Work Phone: (20 sources) gabapentin; Translations: [gabapentin] Drug Allergy 1 Intolerance [facility] Work Phone: (20 sources) bee venom protein (honey bee); Translations: [BEE VENOM PROTEIN (HONEY BEE)] Allergy to substance 1 Anaphylaxis [facility] Work Phone: (1 source) Allergy to substance (finding) [facility]; [facility] Work Phone: (1 source) Allergy to substance (finding) [facility] Work Phone: (12 sources) zolpidem; Translations: [ZOLPIDEM] Drug Allergy 9 Other: See Comments [facility] Work Phone: (1 source) Allergy to substance (finding) [facility] Work Phone: (1 source) Allergy to substance (finding) [facility]; [facility] Work Phone: (1 source) Allergy to substance (finding) [facility]; [facility] Work Phone: (1 source) Allergy to substance (finding) [facility]; [facility] Work Phone: (1 source) Allergy to substance (finding) [facility]; [facility] Work Phone: (1 source) gabapentin Drug Allergy 4 [facility] (1 source) bee venom protein (honey bee) Drug allergy (disorder) 4 [facility] Repository NEGATED: Highlighted row has been ruled out! (1 source) Allergy to drug (finding) 3 [facility]; [facility] Work Phone: NEGATED: Highlighted row has been ruled out! (1 source) Allergy to drug (finding) [facility]; [facility] Work Phone: NEGATED: Highlighted row has been ruled out! (1 source) Allergy to drug (finding) [facility]; [facility] Work Phone: NEGATED: Highlighted row has been ruled out! (1 source) Allergy to drug (finding) [facility]; [facility] Work Phone: NEGATED: Highlighted row has been ruled out! (1 source) Allergy to drug (finding) [facility]; [facility] Work Phone: NEGATED: Highlighted row has been ruled out! (1 source) Allergy to drug (finding) [facility]; [facility] Work Phone: NEGATED: Highlighted row has been ruled out! (1 source) Allergy to drug (finding) [facility]; [facility] Work Phone: NEGATED: Highlighted row has been ruled out! (1 source) Allergy to drug (finding) 3 [facility]; [facility] Work Phone: NEGATED: Highlighted row has been ruled out! (1 source) Allergy to drug (finding) [facility]; [facility] Work Phone: NEGATED: Highlighted row has been ruled out! (1 source) Allergy to drug (finding) [facility]; [facility] Work Phone: NEGATED: Highlighted row has been ruled out! (1 source) Allergy to drug (finding) 3 [facility]; [facility] Work Phone: NEGATED: Highlighted row has been ruled out! (1 source) Allergy to drug (finding) 3 [facility]; [facility] Work Phone: NEGATED: Highlighted row has been ruled out! (1 source) Allergy to drug (finding) 3 [facility]; [facility] Work Phone: NEGATED: Highlighted row has been ruled out! (1 source) Allergy to drug (finding) 3 [facility]; [facility] Work Phone: Medications Current Medications Medication Drug Class(es) Dates Sig (Normalized) Sig (Original) azelastine hydrochloride 0.137 mg/actuat metered dose nasal spray (3 sources) Histamine-1 Receptor Antagonist Start: 09-21-2024 Azelastine 137 mcg (0.1 %) spray,non-aerosol Active 2 NMA INTRANASAL TWICE A DAY September 21, 2024 1:00am administer into each nostril CALTRATE-600 PLUS VITAMIN D3 600 MG-200 UNIT TAB (11 sources) Start: 08-31-2005 CALTRATE-600 PLUS VITAMIN D3 600 MG-200 UNIT TAB Take one(1) tablet daily. 0 08/31/2005 Active Comment on above: Take one(1) tablet d aily. homatropine methylbromide 0.3 mg/ml / HYDROcodone bitartrate 1 mg/ml oral solution (3 sources) Opioid Agonist, Cholinergic Muscarinic Agonist Start: 09-21-2024 Hydrocodone-Homatr opine (Hycodan) 5-1.5 mg/5 mL (5 mL) syrup Active 5 mL PO 4 TIMES DAILY as needed for cough 140 7 September 21, 2024 pantoprazole 40 mg delayed release oral tablet (20 sources) Proton Pump Inhibitor Start: 04-04-2020 take 1 tablet by mouth twice daily Pantoprazole 40 MG tablet Active 40 mg PO TWICE A DAY April 04, 2020 12:00am Start: 12-30-2007 End: 12-30-2007 Start: 12-30-2007 End: 12-30-2007 phenylephrine hydrochloride 25 mg/ml ophthalmic solution (2 sources) alpha-1 Adrenergic Agonist Start: 02-05-2025 End: 02-05-2025 PHENYLephrine 2.5 % 1 drop (AK-DILATE, IRLANDA-SYNEPHRINE) Start: 02-05-2025 End: 02-05-2025 1 drop, BOTH EYES, DIRECT ED, Starting on Fannie 02/05/25 at 1100, Until Fannie 02/05/25 at 2259, Administer for dilation PROTECT FROM LIGHT predniSONE 20 mg oral tablet (20 sources) Start: 09-21-2024 take 2 tablets by mouth once daily Prednisone 20 mg tablet Active 40 mg PO DAILY 06 28September 21, 2024 1:00am Start: 06-30-2014 End: 08-19-2014 Start: 06-30-2014 End: 08-19-2014 take 3 tablets by mouth once daily at mealtime PREDNISONE, 10MG (Oral Tablet) 3 (three) Tablet daily for 0 days Quantity: 21 {Tablet} Refills: 0 Ordered: 19-Aug-2014 Tiffanie Palmer RN Start : 30-Jun-2014 End : 19-Aug-2014 Inactive Comments: with food Start: 08-22-2010 End: 08-27-2010 Comment on above: with food THERAPEUTIC MULTIVITAMIN TAB (11 sources) Start: 08-31-2005 THERAPEUTIC MULTIVITAMIN TAB Take one(1) tablet daily. 0 08/31/2005 Active Comment on above: Take one(1) tablet d aily. tropicamide 10 mg/ml ophthalmic solution (2 sources) Anticholinergic Start: 02-05-2025 End: 02-05-2025 tropicamide 1 % 1 drop (MYDRIACYL) Start: 02-05-2025 End: 02-05-2025 1 drop, BOTH EYES, DIRECT ED, Starting on Fannie 02/05/25 at 1100, Until Fannie 02/05/25 at 2259, Administer for dilation varenicline 0.03 MG/ACTUAT Nasal [place] [Tyrvaya] (1 source) Partial Cholinergic Nicotinic Agonist Start: 01-09-2024 take 1 spray(s) nasal route every twelve hours Tyrvaya 0.03 mg nasal spray USE 1 SPRAY IN EACH NOSTRIL EVERY 12 HOURS. Start Date: 01/09/24 Status: Ordered varenicline (TYRVAYA) 0.03 mg/spray nasal spray (8 sources) Start: 12-19-2023 take 1 spray(s) nasal route every twelve hours varenicline (TYRVAYA) 0.03 mg/spray nasal spray Use 1 [place] in each nostril every 12 hours. 4.2 mL 2 12/19/2023 Active Start: 12-04-2023 take 1 spray(s) nasa l route every twelve hours varenicline (TYRVAYA) 0.03 mg/spray nasal spray Use 1 [place] in each nostril every 12 hours. 4.2 mL 2 12/04/2023 Active Start: 11-29-2023 End: 12-04-2023 take 1 spray(s) nasal route every twelve hours varenicline (TYRVAYA) 0.03 mg/spray nasal spray Use 1 [place] in each nostril every 12 hours. 4.2 mL 2 11/29/2023 12/04/2023 Discontinued Start: 11-29-2023 take 1 spray(s) nasa l route every twelve hours varenicline (TYRVAYA) 0.03 mg/spray nasal spray Use 1 [place] in each nostril every 12 hours. 4.2 mL 2 11/29/2023 Active Comment on above: Use 1 [place] in each nostril every 12 hours. Completed/Discontinued Medications Medication Drug Class(es) Dates Sig (Normalized) Sig (Original) acetaminophen 325 mg / HYDROcodone bitartrate 5 mg oral tablet (20 sources) Opioid Agonist Start: 03-18-2023 End: 09-21-2024 Hydrocodone-Acetami nophen 5-325 mg tablet Discontinued 1 {tbl} PO EVERY 6 HOURS NEEDED as needed for Pain 10 March 18, 2023 September 21, 2024 5:35am On Hold: Ordered Start: 03-18-2023 take 1 tablet by elsa th every six hours as needed Hydrocodone-Acetaminophen Active 1 TABLE T PO EVERY 6 HOURS NEEDED 10 March 18, 2023 Start: 10-10-2006 End: 04-01-2007 Start: 10-10-2006 End: 04-01-2007 take 1 tablet by mouth every four hours as needed VICODIN, 5-500MG (Oral Tablet) 1 (one) Tablet [id number] prn for 0 days Quantity: 10 {Tablet} Refills: 0 Ordered: 10-Oct-2006 Fang Rivera LPN Start : 10-Oct-2006 End : 01-Apr-2007 Discontinued [id number] 200 actuat albuter ol 0.09 mg/actuat metered dose inhaler (20 sources) beta2-Adrenergic Agonist Start: 10-07-2006 End: 12-27-2007 Start: 10-07-2006 End: 12-27-2007 Start: 10-07-2006 End: 12-27-2007 ALBUTEROL SULFATE HFA, 108MC G/ACT (Inhalation Aerosol Soln) 2 (two) Aerosol Soln Q 6hr/PRN for 0 days Quantity: 1 {Aerosol_Soln} Refills: 0 Ordered: 07-Oct-2006 Tiffanie Palmer RN Start : 07-Oct-2006 End : 27-Dec-2007 Inactive Start: 10-07-2006 End: 12-27-2007 ALBUTEROL SULFATE HFA, 108MC G/ACT (Inhalation Aerosol Soln) 2 (two) Aerosol Soln Q 6hr/PRN for 0 days Quantity: 1 {Aerosol_Soln} Refills: 0 Ordered: 07-Oct-2006 Tiffanie Palmer TRAFFIC RATE CLERK Start : 07-Oct-2006 End : 27-Dec-2007 Inactive ALBUTEROL SULFATE HFA, 108MCG/ACT (Inhalation Aerosol Soln) (6 sources) Start: 10-07-2006 End: 12-27-2007 ALBUTEROL SULFATE HFA, 108MCG/ACT (Inhalation Aerosol Soln) 2 (two) Aerosol Soln Q 6hr/PRN for 0 days Quantity: 1 {Aerosol_Soln} Refills: 0 Ordered: 07-Oct-2006 Tiffanie Palmer RN Start : 07-Oct-2006 End : 27-Dec-2007 Inactive amitriptyline hydrochloride 50 mg oral tablet (20 sources) Tricyclic Antidepressant Start: 01-27-2013 End: 01-27-2013 Start: 12-30-2012 End: 12-09-2014 Comment on above: hands shaky and inef fective amoxicillin 875 mg / clavula asif 125 mg oral tablet (20 sources) Penicillin-class Antibacterial Start: 11-06-2019 End: 11-20-2019 Start: 11-06-2019 End: 11-20-2019 take 1 tablet by mouth twice daily Amoxicillin-Pot Clavulanate 875-125 MG Oral Tablet 1 (one) Tablet bid for 14 days Quantity: 28 {Tablet} Refills: 0 Ordered: 06-Nov-2019 Jyoti Elizondo RN Start : 06-Nov-2019 End : 20-Nov-2019 Inactive Start: 11-26-2018 End: 12-06-2018 Start: 11-26-2018 End: 12-06-2018 take 1 tablet by mouth twice daily Augmentin 875-125 MG Oral Tablet 1 (one) Tablet twice daily for 10 days Quantity: 20 {Tablet} Refills: 0 Ordered: 26-Nov-2018 Cadence Harrison CNP Start : 26-Nov-2018 End : 06-Dec-2018 Inactive Start: 12-10-2015 End: 12-20-2015 Start: 12-10-2015 End: 12-20-2015 take 1 tablet by mouth twice daily AUGMENTIN, 875-125MG (Oral Tablet) 1 (one) Tablet Twice daily for 10 days Quantity: 20 {Tablet} Refills: 0 Ordered: 14-Mar-2016 Cadence Harrison CNP Start : 10-Dec-2015 End : 20-Dec-2015 Inactive atropine sulfate 10 mg/ml ophthalmic solution (2 sources) Anticholinergic, Cholinergic Muscarinic Antagonist Start: 11-21-2023 take 1 drop(s) into the eye(s) every week atropine 1 % ophthalmic solution Use 1 Drop in the left eye one time a week. 0 11/21/2023 Active Start: 11-19-2023 End: 11-21-2023 take 1 drop(s) into the eye(s) four times daily atropine 1 % ophthalmic solution Use 1 Drop in the left eye four times daily. 5 mL 0 11/19/2023 11/21/2023 Discontinued Comment on above: Use 1 Drop in the le ft eye one time a week. Use 1 Drop in the le ft eye four times daily. atropine sulfate 0.025 mg / diphenoxylate hydrochloride 2.5 mg oral tablet (10 sources) Anticholinergic, Cholinergic Muscarinic Antagonist, Antidiarrheal Start: 11-27-2015 End: 12-12-2018 Diphenoxylate-Atropine 1 TABLET tablet Discontinued 1 {tbl} PO 3 TIMES DAILY NEEDED as needed for Diarrhea November 27, 2015 1:00am December 12, 2018 1:32pm Start: 11-27-2015 End: 12-12-2018 take 1 tablet by mouth three times daily as needed Diphenoxylate-Atropine Discontinued 1 TABLET PO 3 TIMES DAILY NEEDED November 27, 2015 12:00am December 12, 2018 12:32pm ZITHROMAX Z-BERT, 250MG (Oral Tablet) (20 sources) Macrolide Antimicrobial Start: 07-12-2010 End: 08-08-2010 Start: 07-12-2010 End: 08-08-2010 ZITHROMAX Z-BERT, 250MG (Oral Tablet) 1 Tablet uad for 0 days Quantity: 1 {Package(s)} Refills: 0 Ordered: 08-Aug-2010 Tiffanie Palmer RN Start : 12-Jul-2010 End : 08-Aug-2010 Inactive bacitracin 0.5 unt/mg topica l ointment (20 sources) Start: 05-08-2007 End: 11-18-2007 Start: 05-08-2007 End: 11-18-2007 Start: 05-08-2007 End: 11-18-2007 BACITRACIN, 500UNIT/GM (Exte rnal Ointment) Ointment BID/PRN for 0 days Quantity: 1 {Ointment} Refills: 0 Ordered: 08-May-2007 Tiffanie Palmer RN Start : 08-May-2007 End : 18-Nov-2007 Inactive benzonatate 100 mg oral caps ule (20 sources) Non-narcotic Antitussive Start: 11-06-2019 End: 11-20-2019 Start: 12-08-2015 End: 07-31-2016 Start: 12-09-2012 End: 12-30-2012 calcium carbonate 1500 mg or al tablet (20 sources) End: 07-01-2020 End: 07-01-2020 take 1 tablet by mouth once daily CALTRATE 600, 1500MG (Oral Tablet) 1 QD for 0 days Refills: 0 Ordered: 01-Jul-2020 Sasha Verdin LPN End : 01-Jul-2020 Discontinued Comments: This order discontinued per [facility]. Comment on above: This order discontin ued per [facility]. celecoxib 200 mg oral capsule (20 sources) Nonsteroidal Anti-inflammatory Drug Start: 1 End: 4 take 1 capsule by mouth once daily Celecoxib 200 mg capsule Discontinued 200 mg PO DAILY July 06, 2021 12:00am September 21, 2024 5:35am On Hold: Ordered Start: 07-15-2013 End: 06-14-2018 Start: 07-15-2013 End: 06-14-2018 take 1 capsule by mouth twice daily as needed CeleBREX 200 MG Oral Capsule 1 (one) Capsule BID/PRN for 0 days Quantity: 60 {Capsule} Refills: 1 Ordered: 14-Jun-2018 Cadence Harrison CNP Start : 15-Jul-2013 End : 14-Jun-2018 Inactive End: 12-04-2023 take 1 capsule by mouth once daily for pain CELECOXIB (CELEBREX ORAL) Indications: Routine gynecological examination , Screening for malignant neoplasm of the cervix , Breast pain, left Take 1 capsule by mouth once daily. 0 12/04/2023 Discontinued (Discontinued by another Health Care Provider) take 1 capsule by mo uth once daily for pain CELECOXIB (CELEBREX ORAL) Indications: Routine gynecological examination , Screening for malignant neoplasm of the cervix , Breast pain, left Take 1 capsule by mouth once daily. 0 Active Comment on above: Take 1 capsule by mo uth once daily. cephalexin 500 mg oral capsule (6 sources) Cephalosporin Antibacterial Start: 05-13-20 End: 09-21-20 24 take 1 capsule by mouth every six hours Cephalexin 500 mg capsule Discontinued 500 mg PO EVERY 6 HOURS May 13, 2023 12:00am September 21, 2024 5:35am ciprofloxacin 500 mg oral tablet (20 sources) Quinolone Antimicrobial Start: 03-18-20 End: 09-21-20 24 take 1 tablet by mouth twice daily Ciprofloxacin Hcl (Cipro) 500 mg tablet Discontinued 500 mg PO TWICE A DAY March 18, 2023 12:00am September 21, 2024 5:35am On Hold: MD Ordered Start: 06-29-2016 End: 07-02-2016 clarithromycin 500 mg oral t ablet (20 sources) Macrolide Antimicrobial Start: 12-08-2015 End: 07-31-2016 clonazePAM 0.5 mg oral table t (20 sources) Benzodiazepine Start: 07-02-2017 End: 06-14-2018 Comment on above: thirty codeine phosphate 2 mg/ml / guaiFENesin 20 mg/ml oral solution (20 sources) Opioid Agonist Start: 12-09-2012 End: 12-30-2012 Start: 12-09-2012 End: 12-30-2012 CHERATUSSIN AC, 100-10MG/5ML (Oral Syrup) 1 Teaspoon(s) qhs prn for cough for 0 days Quantity: 6 {Ounce(s)} Refills: 0 Ordered: 30-Dec-2012 Fang Rivera LPN Start : 09-Dec-2012 End : 30-Dec-2012 Inactive Start: 07-12-2010 End: 08-08-2010 Start: 07-12-2010 End: 08-08-2010 take 1-2 tablets by mouth every six hours as needed GUAIFENESIN-CODEINE, 300-10MG (Oral Tablet) 1-2 Tablet every 6 hours prn for 0 days Quantity: 10 {Tablet} Refills: 0 Ordered: 08-Aug-2010 Tiffanie Palmer RN Start : 12-Jul-2010 End : 08-Aug-2010 Inactive codeine phosphate 2 mg/ml / guaiFENesin 20 mg/ml / pseudoephedrine hydrochloride 6 mg/ml oral solution (20 sources) alpha-Adrenergic Agonist, Opioid Agonist Start: 12-08-2015 End: 07-31-2016 Start: 12-08-2015 End: 07-31-2016 take 1 [tsp_us] by mouth once daily at bedtime Cheratussin DAC 30-10-100 MG/5ML Oral Solution 1 (one) Teaspoon Teaspoon qhs for 0 days Quantity: 6 {Ounce} Refills: 0 Ordered: 31-Jul-2016 Tiffanie Palmer RN Start : 08-Dec-2015 End : 31-Jul-2016 Inactive Comments: six ounces Comment on above: six ounces cyclobenzaprine hydrochloride 5 mg oral tablet (20 sources) Muscle Relaxant Start: End: diazePAM 2 mg oral tablet (20 sources) Benzodiazepine Start: 008 End: dicyclomine hydrochloride 20 mg oral tablet (20 sources) Anticholinergic Start: 014 End: take 1 tablet by mouth four times daily as needed for pain Dicyclomine 20 MG tablet Discontinued 20 mg PO 4 TIMES DAILY as needed for Abdominal Pain March 20, 2014 12:00am December 12, 2018 1:32pm Comment on above: Take 20 mg by mouth four times daily as needed. diphenhydrAMINE hydrochloride 25 mg oral capsule (20 sources) Histamine-1 Receptor Antagonist Start: 014 End: 015 Start: 06-30-2014 End: 12-09-2014 BENADRYL, 25MG (Oral Capsule ) 1 (one) Capsule Capsule q6-8 hrs prn for 0 days Quantity: 30 {Capsule} Refills: 0 Ordered: 09-Dec-2014 Tiffanie Palmer RN Start : 30-Jun-2014 End : 09-Dec-2014 Inactive [id number] 0.3 ml EPINEPHrine 1 mg/ml auto-injector (20 sources) alpha-Adrenergic Agonist, beta-Adrenergic Agonist, Catecholamine Start: 02-23-2023 Start: 04-04-2020 inject 0.3 mg by int ramuscular injection once as needed Epinephrine 0.3 MG syringe Active 0.3 mg IM ONE TIME as needed for Anaphylaxis April 05, 2020 7:38pm erythromycin 0.005 mg/mg ophthalmic ointment (1 source) Macrolide, Macrolide Antimicrobial Start: 11-09-2023 End: 11-21-2023 erythromycin (ROMYCIN) 5 mg/gram (0.5 %) ophthalmic ointment APPLY A SMALL AMOUNT INTO LEFT EYE EVERY NIGHT AT BEDTIME 0 11/09/2023 11/21/2023 Discontinued (Clinical Decision) Comment on above: APPLY A SMALL AMOUNT INTO LEFT EYE EVERY NIGHT AT BEDTIME eszopiclone 2 mg oral tablet (20 sources) Start: 12-20-2012 End: 12-30-2012 Comment on above: [age] [facility]t famotidine 20 mg oral tablet (20 sources) Histamine-2 Receptor Antagonist Start: 03-20-2014 End: 12-12-2018 take 1 tablet by mouth twice daily Famotidine 20 MG tablet Discontinued 20 mg PO TWICE A DAY March 20, 2014 12:00am December 12, 2018 1:32pm Start: 06-04-2008 End: 09-09-2008 fexofenadine hydrochloride 6 0 mg oral tablet (20 sources) Histamine-1 Receptor Antagonist Start: 01-09-2011 End: 06-26-2011 fluticasone propionate 0.05 mg/actuat metered dose nasal spray (20 sources) Corticosteroid Start: 12-10-2015 End: 06-14-2018 14 actuat fluticasone propionate 0.25 mg/actuat / salmeterol 0.05 mg/actuat dry powder inhaler (20 sources) Corticosteroid, beta2-Adrenergic Agonist Start: 08-22-2010 End: 01-09-2011 Start: 08-22-2010 End: 01-09-2011 Start: 08-22-2010 End: 01-09-2011 ADVAIR DISKUS, 250-50MCG/DOS E (Inhalation Aerosol Powder Breath Activated) 1 Aero Pow Br Act bid for 0 days Quantity: 1 {Aero_Pow_Br_Act} Refills: 0 Ordered: 09-Jan-2011 Fang Rivera LPN Start : 22-Aug-2010 End : 09-Jan-2011 Inactive frovatriptan 2.5 mg oral tablet (20 sources) Serotonin-1b and Serotonin-1d Receptor Agonist Start: 04-29-2010 End: 04-30-2010 gabapentin 100 mg oral capsule (20 sources) Anti-epileptic Agent Start: 03-20-2014 End: 12-12-2018 Gabapentin 100 MG capsule Discontinued mg PO March 20, 2014 12:00am December 12, 2018 1:32pm Start: 03-20-2014 End: 12-12-2018 Gabapentin Discontinued MG P O March 19, 2014 11:00pm December 12, 2018 12:32pm Start: 12-11-2011 End: 12-11-2011 Comment on above: terrible nightmares glucosamine hydrochloride 75 0 mg oral tablet (20 sources) take 2 tablets by mouth once callie ly Glucosamine 750 MG Oral Tablet 2 tablet daily (750 MG) Active HYDROcodone bitartrate 7.5 m g / ibuprofen 200 mg oral tablet (20 sources) Opioid Agonist, Nonsteroidal Anti-inflammatory Drug Start: 04-29-2010 End: 08-08-2010 Start: 04-29-2010 End: 08-08-2010 take 1 tablet by mouth every six hours as needed VICOPROFEN, 7.5-200MG (Oral Tablet) 1 (one) Tablet q 6 hr prn for 0 days Quantity: 10 {Tablet} Refills: 0 Ordered: 08-Aug-2010 Tiffanie Palmer RN Start : 29-Apr-2010 End : 08-Aug-2010 Inactive hydrOXYzine pamoate 50 mg or al capsule (20 sources) Antihistamine Start: 04-10-2017 End: 04-16-2017 lansoprazole 30 mg delayed r elease oral capsule (20 sources) Proton Pump Inhibitor Start: 12-30-2007 End: 09-09-2008 Start: 12-30-2007 End: 09-09-2008 PREVACID, 30MG (Oral Capsule Delayed Release) Capsule DR for 0 days Refills: 0 Ordered: 09-Sep-2008 Tiffanie Palmer RN Start : 30-Dec-2007 End : 09-Sep-2008 Inactive loratadine 10 mg oral capsul e (20 sources) Start: 11-26-2018 End: 11-03-2019 meclizine hydrochloride 12.5 mg oral tablet (20 sources) Antiemetic Start: 12-05-2010 End: 06-26-2011 meloxicam 7.5 mg oral tablet (20 sources) Nonsteroidal Anti-inflammatory Drug End: 06-19-2011 metaxalone 800 mg oral table t (20 sources) Start: 05-20-2007 End: 08-28-2007 metoprolol tartrate 25 mg or al tablet (14 sources) beta-Adrenergic Dimitri Start: 10-31-2021 End: 05-22-2022 Start: 07-29-2021 metroNIDAZOLE 500 mg oral tablet (7 sources) Nitroimidazole Antimicrobial Start: 03-18-2023 End: 09-21-2024 take 1 tablet by mouth three times daily Metronidazole 500 mg tablet Discontinued 500 mg PO THREE TIMES A DAY March 18, 2023 12:00am September 21, 2024 5:34am On Hold: Ordered mometasone furoate 0.05 mg/actuat metered dose nasal spray (20 sources) Corticosteroid Start: 08-22-2010 End: 12-28-2010 Start: 08-22-2010 End: 12-28-2010 NASONEX, 50MCG/ACT (Nasal Harris spension) 2 (two) Suspension qd for 0 days Quantity: 1 {Suspension} Refills: 0 Ordered: 28-Dec-2010 Fang Rivera LPN Start : 22-Aug-2010 End : 28-Dec-2010 Inactive Multivitamin Oral Tablet (9 sources) Start: 07-01-2020 End: 07-31-2020 take 1 tablet by mouth once daily Multivitamin Oral Tablet 1 (one) Tablet daily for 30 days Quantity: 30 {Tablet} Refills: 0 Ordered: 01-Jul-2020 Corie Cadet DO, DO, Kathleen Start : 01-Jul-2020 End : 31-Jul-2020 Inactive Comments: otc Start: 07-01-2020 take 1 tablet by elsa th once daily Multivitamin Oral Tablet 1 (one) Tablet daily for 30 days Quantity: 30 {Tablet} Refills: 0 Ordered: 01-Jul-2020 Corie Cadet DO, DO, Kathleen Start : 01-Jul-2020 Active Comments: otc Comment on above: otc Multivitamin preparation (20 sources) Start: 07-01-2020 End: 07-31-2020 Start: 06-15-2015 take 1 tablet by elsa th once daily Multivitamin Dose = 1 tab(s), Oral, Daily Start Date: 06/15/15 Status: Ordered MULTIVITAMIN (Or al Liquid) 1 QD for 0 days Refills: 0 Ordered: 03-Nov-2019 Christina Sandhu LPN Active MULTIVITAMIN (Or al Liquid) 1 QD for 0 days Refills: 0 Ordered: 18-Feb-2019 Jaden Ac Active MULTIVITAMIN (Or al Liquid) 1 QD for 0 days Refills: 0 Ordered: 26-Nov-2018 Katie Hernandez Active naproxen sodium 220 mg oral tablet (20 sources) Nonsteroidal Anti-inflammatory Drug Start: 11-25-2007 End: 08-08-2010 Start: 11-25-2007 End: 08-08-2010 take 2 tablets by mouth twice daily ALEVE, 220MG (Oral Tablet) 2 (two) Tablet Twice daily for 0 days Refills: 0 Ordered: 08-Aug-2010 Tiffanie Palmer RN Start : 25-Nov-2007 End : 08-Aug-2010 Inactive nitrofurantoin, macrocrystal s 25 mg / nitrofurantoin, monohydrate 75 mg oral capsule (20 sources) Nitrofuran Antibacterial Start: 06-23-2019 End: 06-30-2019 nystatin [id number] unt/ml oral suspension (20 sources) Polyene Antifungal Start: 12-11-2011 End: 12-11-2011 Start: 12-11-2011 End: 12-11-2011 NYSTATIN, [id number] ([facility]Th[facility] Suspension) 10 cc tid for 0 days Quantity: 90 {Suspension} Refills: 0 Ordered: 11-Dec-2011 Corie Cadet DO, DO, Kathleen Start : 11-Dec-2011 End : 11-Dec-2011 Discontinued omeprazole 20 mg / sodium bi carbonate 1680 mg powder for oral suspension (20 sources) Proton Pump Inhibitor Start: 10-25-2009 End: 11-24-2009 Start: 10-25-2009 End: 11-24-2009 take 1 dose by mouth once daily ZEGERID, 20-1680MG (Or al Packet) 1 Packet qd for 30 days Refills: 0 Ordered: 25-Oct-2009 Corie Cadet DO, DO Corie Start : 25-Oct-2009 End : 24-Nov-2009 Inactive ondansetron 4 mg disintegrating oral tablet (7 sources) Serotonin-3 Receptor Antagonist Start: 03-18-2023 End: 09-21-2024 take 1 tablet by mouth every eight hours as needed for nausea Ondansetron 4 mg tablet,disintegrating Discontinued 4 mg PO EVERY 8 HOURS NEEDED as needed for Nausea March 18, 2023 12:00am September 21, 2024 5:35am phenazopyridine hydrochloride 200 mg oral tablet (20 sources) Start: 03-18-2023 End: 09-21-2024 take 1 tablet by mouth three times daily Phenazopyridine (Pyridium) 200 mg tablet Discontinued 200 mg PO THREE TIMES A DAY March 18, 2023 12:00am September 21, 2024 5:34am On Hold: MD Ordered Start: 06-21-2016 End: 06-23-2016 promethazine hydrochloride 2 5 mg oral tablet (20 sources) Phenothiazine Start: 04-29-2010 End: 12-28-2010 sertraline 50 mg oral tablet (20 sources) Serotonin Reuptake Inhibitor Start: 12-26-2017 End: 03-26-2018 Start: 06-06-2013 End: 08-19-2014 Comment on above: pt needs appt sulfamethoxazole 800 mg / trimethoprim 160 mg oral tablet (10 sources) Dihydrofolate Reductase Inhibitor Antibacterial, Sulfonamide Antimicrobial Start: 12-12-2018 End: 12-19-2018 Sulfamethoxazole-Trime thoprim (Bactrim Ds) 800-160 mg tablet Discontinued 1 {tbl} PO Q12H 14 7 December 12, 2018 12:00am December 18, 2018 12:00am December 19, 2018 12:08am temazepam 15 mg oral capsule (20 sources) Benzodiazepine Start: 04-16-2017 End: 06-14-2018 Comment on above: thirty triamcinolone acetonide 0.055 mg/actuat metered dose nasal spray (20 sources) Corticosteroid Start: 12-05-2010 End: 06-26-2011 Start: 12-05-2010 End: 06-26-2011 Start: 12-05-2010 End: 06-26-2011 NASACORT AQ, 55MCG/ACT (Nasa l Aerosol Solution) 2 (two) Puff(s) once daily for 0 days Quantity: 1 {Aerosol_Soln} Refills: 0 Ordered: 26-Jun-2011 Miguel SAADIAFang Start : 05-Dec-2010 End : 26-Jun-2011 Inactive valACYclovir 500 mg oral tablet (12 sources) Herpesvirus Nucleoside Analog DNA Polymerase Inhibitor, Herpes Simplex Virus Nucleoside Analog DNA Polymerase Inhibitor, Herpes Zoster Virus Nucleoside Analog DNA Polymerase Inhibitor Start: 12-12-2023 End: 01-31-2026 take 1 tablet by mouth once daily valACYclovir (VALTREX) 500 mg tablet Take 1 tablet by mouth once daily. 90 tablet 3 08/08/2024 02/05/2025 Discontinued Start: 11-23-2023 End: 12-23-2023 take 1 tablet by mouth three times daily valACYclovir (VALTREX) 500 mg tablet Take 1 tablet by mouth three times a day. 90 tablet 0 11/23/2023 12/12/2023 Discontinued (Clinical Decision) Start: 11-09-2023 take 1 tablet by elsa th three times daily valACYclovir (VALTREX) 500 mg tablet Take 500 mg by mouth three times a day. 0 11/09/2023 Active Comment on above: Take 500 mg by mouth three times a day. Take 1 tablet by elsa th three times a day. Take 1 tablet by elsa th once daily. zolpidem tartrate 12.5 mg extended release oral tablet (20 sources) gamma-Aminobutyric Acid-ergic Agonist Start: 01-27-2013 End: 01-27-2013 Comment on above: sleep walking Problems Active Problems Problem Classification Problem Date Documented Date Episodic/Chronic Abdominal pain (20 sources) Epigastric pain; Translations: [Epigastric pain] Resolved: 2 01-27-2013 Episodic Acute bronchitis (20 sources) Acute bronchitis due to other specified organisms; Translations: [Acute infective bronchitis] 11-26-2018 Episodic Allergic reactions (20 sources) Contact dermatitis; Translations: [Contact dermatitis] 11-26-2018 Episodic Anxiety disorders (20 sources) Anxiety; Translations: [Anxiety] Resolved: 5 12-08-2015 Chronic Comment on above: stable on zoloft Blindness and vision defects (2 sources) Presbyopia; Translations: [Presbyopia] Onset: 5 02-05-2025 Episodic Cardiac dysrhythmias (20 sources) Premature atrial contraction; Translations: [PAC (premature atrial contraction)] 07-18-2021 Chronic Cardiac dysrhythmias (20 sources) Palpitations; Translations: [Palpitations] 07-18-2021 Episodic Cataract (12 sources) Artificial lens present; Translations: [Presence of intraocular lens] Onset: 4 11-21-2023 Chronic Chronic obstructive pulmonary disease and bronchiectasis (20 sources) Bronchitis; Translations: [Bronchitis] Resolved: 1 06-29-2015 Episodic Chronic obstructive pulmonary disease and bronchiectasis (17 sources) Chronic obstructive pulmonary disease and bronchiectasis Chronic ulcer of skin (6 sources) Skin ulcer; Translations: [Non-pressure chronic ulcer of skin of other sites with fat layer exposed] 06-27-2024 Chronic Coagulation and hemorrhagic disorders (2 sources) Spontaneous bruising; Translations: [Spontaneous ecchymoses] Onset: 5 01-09-2024 Episodic Conditions associated with dizziness or vertigo (20 sources) Vertigo; Translations: [Vertigo] 11-26-2018 Episodic Comment on above: encourage do bpv exe rcises several times a day- Conduction disorders (20 sources) Right bundle branch block; Translations: [RBBB] 07-18-2021 Chronic Deficiency and other anemia (20 sources) Anemia, unspecified; Translations: [Anemia] Episodic Diseases of mouth; excluding dental (20 sources) Glossodynia; Translations: [Burning tongue] Resolved: 5 12-08-2015 Episodic Disorders of teeth and jaw (20 sources) Acute gingivitis, non-plaque induced; Translations: [Gingivitis, acute, non-plaque induced] Resolved: 1 01-27-2013 Episodic Comment on above: resolvingdescribes a s gum pressure gums hurt has been to dentist not infection Diverticulosis and diverticulitis (7 sources) Diverticulitis; Translations: [Diverticulitis of intestine, part unspecified, without perforation or abscess without bleeding] 03-18-2023 Chronic Esophageal disorders (20 sources) Gastroesophageal reflux disease; Translations: [Reflux esophagitis] Resolved: 1 06-29-2015 Chronic External cause codes: Natural/environment (20 sources) Dog bite Fever of unknown origin (20 sources) Fever; Translations: [Fever] Resolved: 1 07-01-2020 Episodic Genitourinary symptoms and ill-defined conditions (20 sources) Blood in urine; Translations: [Increased frequency of urination] Resolved: 1 01-27-2013 Episodic Headache; including migraine (20 sources) Migraine with aura; Translations: [Migraine with aura and without status migrainosus, not intractable] Onset: 5 Resolved: 5 12-08-2015 Chronic Comment on above: 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 Headache; including migraine (20 sources) Headache; Translations: [Tension-type headache] Resolved: 9 11-26-2018 Episodic Comment on above: 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 Heart valve disorders (20 sources) Mitral valve prolapse; Translations: [Mitral valve prolapse] 11-26-2018 Chronic Comment on above: asx Immunizations and screening for infectious disease (20 sources) Need for prophylactic vaccination and inoculation against influenza; Translations: [Needs influenza immunization] 07-01-2020 Episodic Malaise and fatigue (20 sources) Fatigue; Translations: [Fatigue] Onset: 5 Resolved: 5 11-26-2018 Episodic Comment on above: prob related to stre ss Menopausal disorders (1 source) Atrophic vaginitis 01-09-2024 Chronic Mood disorders (20 sources) Depressive disorder; Translations: [Depression] Resolved: 1 06-29-2015 Chronic Nausea and vomiting (20 sources) Vomiting; Translations: [Vomiting] Resolved: 0 01-27-2013 Episodic Nonmalignant breast conditions (1 source) Mammographic breast tissue appearance; Translations: [Dense breast tissue on mammogram] 12-15-2022 Episodic Nonspecific chest pain (20 sources) Tight chest; Translations: [Chest tightness] Resolved: 3 05-24-2022 Episodic Nutritional deficiencies (20 sources) Vitamin D deficiency, unspecified; Translations: [Vitamin D deficiency] 11-26-2018 Chronic Osteoarthritis (20 sources) Osteoarthritis; Translations: [Osteoarthritis] Onset: 1 11-26-2018 Chronic Comment on above: stable on celebrex, caltrate and multivit Osteoporosis (11 sources) Osteoporosis; Translations: [Age-related osteoporosis without current pathological fracture] Onset: 1 06-04-2019 Chronic Other aftercare (20 sources) Removal of sutures done; Translations: [Encounter for removal of sutures] Resolved: 1 01-27-2013 Episodic Other bone disease and musculoskeletal deformities (20 sources) Osteopenia; Translations: [Osteopenia] 11-26-2018 Episodic Other circulatory disease (20 sources) Low blood pressure; Translations: [Hypotension] Resolved: 1 01-27-2013 Episodic Other connective tissue disease (20 sources) Muscle weakness; Translations: [Muscle weakness (generalized)] Resolved: 9 09-29-2015 Episodic Comment on above: no documented muscl weakness-- just a feeling of weakness Other connective tissue disease (20 sources) Muscle pain; Translations: [Myalgia] Resolved: 1 09-03-2015 Episodic Other connective tissue disease (20 sources) Pain in limb; Translations: [Limb pain] Resolved: 9 08-10-2015 Episodic Other connective tissue disease (20 sources) Cramp in lower limb; Translations: [Leg cramps] Resolved: 5 12-09-2014 Episodic Other diseases of veins and lymphatics (20 sources) Peripheral venous insufficiency; Translations: [Venous insufficiency (chronic) (peripheral)] 03-03-2021 Episodic Other endocrine disorders (20 sources) Hypoglycemia; Translations: [Hypoglycemia] 11-26-2018 Chronic Other endocrine disorders (20 sources) Endocrine disorder, unspecified; Translations: [Hypotestosteronism] Resolved: 5 12-08-2015 Episodic Other eye disorders (2 sources) Disorder of lacrimal gland; Translations: [Dry eye syndrome of bilateral lacrimal glands] 08-08-2024 Episodic Other eye disorders (1 source) Dry eye syndrome of bilateral lacrimal glands; Translations: [Dry eye syndrome of bilateral lacrimal glands] Onset: 5 Episodic Other gastrointestinal disorders (20 sources) Irritable bowel syndrome; Translations: [Irritable bowel syndrome] Resolved: 1 01-27-2013 Chronic Other gastrointestinal disorders (20 sources) Dysphagia; Translations: [Dysphagia] 02-18-2019 Episodic Comment on above: had esophagus stretc hed in last 5 years per [facility] Other gastrointestinal disorders (20 sources) Abnormal feces; Translations: [Abnormal stool caliber] Resolved: 5 12-08-2015 Episodic Other gastrointestinal disorders (20 sources) Constipation; Translations: [Constipation] Resolved: 5 07-06-2015 Episodic Other gastrointestinal disorders (20 sources) Dysphagia, unspecified; Translations: [Dysphagia, unspecified dysphagia] Resolved: 1 08-13-2015 Episodic Other gastrointestinal disorders (20 sources) Diarrhea; Translations: [Diarrhea] Resolved: 1 01-27-2013 Episodic Other hereditary and degenerative nervous system conditions (20 sources) Restless legs; Translations: [RLS (restless legs syndrome)] 11-26-2018 Chronic Other inflammatory condition of skin (20 sources) Itching ; Translations: [Itching] Resolved: 5 12-09-2014 Episodic Other injuries and conditions due to external causes (20 sources) Dog bite - wound; Translations: [Dog bite] Resolved: 1 01-27-2013 Episodic Other injuries and conditions due to external causes (6 sources) Abrasion; Translations: [Other injury of unspecified body region, initial encounter] 05-13-2023 Episodic Other lower respiratory disease (20 sources) Cough; Translations: [Cough] 11-26-2018 Episodic Other lower respiratory disease (20 sources) Dyspnea on exertion; Translations: [SOB (shortness of breath) on exertion] Resolved: 9 08-06-2015 Episodic Comment on above: d-dimer ordered Other lower respiratory disease (20 sources) Dyspnea; Translations: [SOB (shortness of breath)] Resolved: 3 Episodic Other nervous system disorders (20 sources) Lesion of plantar nerve, left lower limb; Translations: [Mortons neuroma of left foot] 11-26-2018 Chronic Comment on above: DR. Montes surgery p ending Other non-traumatic joint disorders (20 sources) Arthropathy, unspecified, hand; Translations: [Unspecified arthropathy involving hand] Resolved: 01-27-2013 Chronic Other non-traumatic joint disorders (4 sources) Arthropathy Chronic Other non-traumatic joint disorders (20 sources) Knee pain; Translations: [Pain in unspecified knee] Resolved: 9 01-27-2013 Episodic Other non-traumatic joint disorders (20 sources) Joint pain; Translations: [Pain in unspecified joint] Resolved: 9 08-09-2015 Episodic Other non-traumatic joint disorders (20 sources) Hip pain; Translations: [Pain in unspecified hip] Resolved: 9 08-10-2015 Episodic Comment on above: hx of previous hip f racture- X-ray reviewed and was normal. Pain has improved greatly. Rates 2/10 and can walk better. Hold off on PT unless pain worsens. Follow up as needed. Other nutritional; endocrine; and metabolic disorders (20 sources) Cholesterol level - finding; Translations: [Low HDL (under 40)] Resolved: 1 08-09-2015 Chronic Other screening for suspected conditions (not mental disorders or infectious disease) (20 sources) Hypotestosteronism; Translations: [Imaging of thorax abnormal] Resolved: 5 12-08-2015 Chronic Other screening for suspected conditions (not mental disorders or infectious disease) (20 sources) Imaging of thorax abnormal; Translations: [Blood chemistry abnormal] Resolved: 1 08-11-2015 Episodic Comment on above: low reticulocyte res olved elevated lymph, mild anemiaon mobic x 2 yrs on mobic x 2 yrs/ on celebrex now Other skin disorders (20 sources) Nonscarring hair loss, unspecified; Translations: [Loss of hair] Resolved: 5 12-08-2015 Episodic Other skin disorders (20 sources) Eruption; Translations: [Rash] Resolved: 9 11-26-2018 Episodic Comment on above: ? vasculitis vs side effect of celebrex vs other will check labs and send to Derm Other upper respiratory disease (20 sources) Allergic rhinitis due to other allergen; Translations: [Allergic rhinitis] Chronic Other upper respiratory disease (20 sources) Allergic rhinitis; Translations: [Allergic rhinitis due to other allergen] Onset: 5 Resolved: 2 01-27-2013 Chronic Other upper respiratory disease (20 sources) Congestion of nasal sinus; Translations: [Congestion of nasal sinus] 11-26-2018 Episodic Other upper respiratory disease (10 sources) Pain in throat Episodic Other upper respiratory disease (10 sources) Nasal congestion; Translations: [Nasal congestion] 02-22-2023 Episodic Other upper respiratory infections (20 sources) Acute sinusitis; Translations: [Pharyngitis] 11-26-2018 Episodic Comment on above: 4 weeks nasal conges tion Poisoning by nonmedicinal substances (10 sources) Anaphylaxis due to hymenoptera venom; Translations: [Toxic effect of venom of other arthropod, accidental (unintentional), initial encounter] 04-05-2020 Episodic Prolapse of female genital organs (1 source) Cystocele 01-09-2024 Chronic Residual codes; unclassified (20 sources) Generalized aches and pains; Translations: [Body aches] Resolved: 5 12-09-2014 Episodic Comment on above: oa related Residual codes; unclassified (20 sources) FH: Diabetes mellitus; Translations: [Family history of diabetes mellitus] Resolved: 5 12-08-2015 Episodic Residual codes; unclassified (20 sources) Insomnia; Translations: [Insomnia] 11-26-2018 Episodic Residual codes; unclassified (20 sources) Family history of diabetes mellitus Episodic Residual codes; unclassified (17 sources) Needs influenza immunization; Translations: [Need for prophylactic vaccination and inoculation against influenza] 11-26-2018 Episodic Residual codes; unclassified (20 sources) Other sleep disturbances; Translations: [GENERAL SYMPTOMS; OTHER SLEEP DISTURBANCES] 11-26-2018 Episodic Comment on above: RLS related? Residual codes; unclassified (20 sources) Body mass index (BMI) 22.0-22.9, adult; Translations: [Body mass index (BMI) 21.0-21.9, adult] Resolved: 2 06-14-2018 Episodic Residual codes; unclassified (20 sources) Influenza-like symptoms; Translations: [Flu-like symptoms] Resolved: 1 11-03-2019 Episodic Residual codes; unclassified (20 sources) Current non-smoker ; Translations: [Current non-smoker] 11-03-2019 Episodic Residual codes; unclassified (20 sources) Non-smoker; Translations: [Nonsmoker] 03-03-2021 Episodic Residual codes; unclassified (19 sources) Edema; Translations: [Edema] Episodic Residual codes; unclassified (9 sources) Swelling - edema - symptom; Translations: [Edema] 03-03-2021 Episodic Residual codes; unclassified (14 sources) Impaired exercise tolerance; Translations: [Exercise intolerance] Resolved: 3 05-22-2022 Episodic Respiratory failure; insufficiency; arrest (adult) (3 sources) Respiratory failure; insufficiency; arrest (adult) Skin and subcutaneous tissue infections (6 sources) Cellulitis; Translations: [Cellulitis, unspecified] 05-13-2023 Episodic Spondylosis; intervertebral disc disorders; other back problems (20 sources) Low back pain; Translations: [Lumbago with sciatica] Resolved: 9 01-27-2013 Episodic Comment on above: MRI reviewed disc bu lge, already on celebrex, ice, Physical therapy made it worse, going to chiropracter, send to pain management doc Superficial injury; contusion (6 sources) Contusion of lower limb; Translations: [Contusion of right lower leg, initial encounter] 05-13-2023 Episodic Thyroid disorders (20 sources) Goiter; Translations: [Thyromegaly] 11-26-2018 Chronic Unclassified (20 sources) Unclassified (20 sources) GENERAL SYMPTOMS; OTHER SLEEP DISTURBANCES (780.59) Unclassified (20 sources) THYROMEGALY (240.9) Unclassified (20 sources) Situational anxiety Unclassified (20 sources) BMI 21.0-21.9, adult; Translations: [Body mass index 20-24 - normal] Resolved: 9 02-18-2019 Unclassified (20 sources) Non-smoker; Translations: [Nonsmoker] 11-03-2019 Unclassified (4 sources) BRONCHITIS, NOT SPECIFIED ACUTE OR CHRONIC (490.) Unclassified (3 sources) Abnormal blood chemistry Unclassified (3 sources) Hyperglyceridemia Unclassified (10 sources) No history of clinical finding in subject; Translations: [No significant past medical history] 04-04-2020 Unclassified (1 source) Other intervertebral disc degeneration, lumbar region without mention of lumbar back pain or lower extremity pain; Translations: [Other intervertebral disc degeneration, lumbar region without mention of lumbar back pain or lower extremity pain] Onset: 5 Urinary tract infections (20 sources) Urinary tract infectious disease; Translations: [UTI (urinary tract infection)] 07-05-2016 Episodic Past or Other Problems Problem Classification Problem Date Documented Date Episodic/Chronic Conditions associated with dizziness or vertigo (20 sources) Conditions associated with dizziness or vertigo Deficiency and other anemia (20 sources) Anemia; Translations: [Anemia, unspecified] Resolved: 5 12-08-2015 Episodic Comment on above: on multivitamin Disorders of lipid metabolism (20 sources) Hypertriglyceridemia; Translations: [Hyperglyceridemia] Onset: 5 Resolved: 2 11-26-2018 Chronic Headache; including migraine (20 sources) Headache; including migraine Inflammation; infection of eye (except that caused by tuberculosis or sexually transmitteddisease) (20 sources) Dendritic ulcer; 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] Onset: 4 11-21-2023 Episodic Open wounds of extremities (20 sources) Open wound of hand except finger(s) alone, without mention of complication; Translations: [Hand] Onset: 4 Resolved: 9 01-27-2013 Episodic Other aftercare (5 sources) Surgical follow-up; Translations: [Encounter for removal of sutures] Resolved: 1 01-27-2013 Episodic Other aftercare (12 sources) Encounter for removal of sutures; Translations: [Encounter for removal of sutures] Resolved: 1 01-27-2013 Episodic Other and unspecified benign neoplasm (11 sources) History of polyp of colon; Translations: [Personal history of colonic polyps] Onset: 7 04-17-2017 Episodic Other gastrointestinal disorders (11 sources) Dysphagia, unspecified; Translations: [Dysphagia, unspecified] Onset: 5 02-11-2015 Episodic Other lower respiratory disease (1 source) Pleurodynia; Translations: [Pleurodynia] Onset: 4 Episodic Other nervous system disorders (13 sources) Mortons neuroma of left foot; Translations: [Wahl's neuroma, left] 02-18-2019 Comment on above: DR. Montes surgery p ending Other non-traumatic joint disorders (18 sources) Pain in unspecified knee; Translations: [Knee pain] Resolved: 9 01-27-2013 Episodic Other upper respiratory disease (1 source) Nasal congestion; Translations: [Nasal congestion] Onset: 5 Episodic Residual codes; unclassified (1 source) Chills (without fever); Translations: [Chills (without fever)] Onset: 4 Episodic Unclassified (20 sources) Testosterone deficiency Unclassified (20 sources) Hypertriglycerides (272.1) Unclassified (20 sources) Low HDL (272.5) Unclassified (20 sources) Hand (882.0) Unclassified (20 sources) Current non-smoker ; Translations: [Current non-smoker] 11-26-2018 Unclassified (20 sources) Deliveries (Parity); Translations: [Deliveries (Parity)] 11-26-2018 Comment on above: 1 Unclassified (20 sources) Encounter for removal of sutures (V58.32) Unclassified (20 sources) Myalgia, Unspecified(729.1) Unclassified (20 sources) Limb pain (729.5) Unclassified (17 sources) Unspecified arthropathy involving hand (716.94) Unclassified (20 sources) Pregnancies (); Translations: [Pregnancies ()] 11-26-2018 Comment on above: 1 Unclassified (14 sources) Preprocedural examination done; Translations: [Pre-operative examination, unspecified] 11-26-2018 Comment on above: With Dr. David martin on Jun 25, 2015 at [facility] [place] Left foot excision or releaseo f 2nd interspace neuroma, exploarion of proximal phalanx 2nd toes Unclassified (20 sources) Unspecified Diagnosis 04-10-2017 Unclassified (20 sources) ARTHRALGIAS 719.40 Unclassified (20 sources) Pelvis/Thigh/Hip Pain (719.45) Unclassified (20 sources) Gingivitis, acute, non-plaque induced (523.01) Unclassified (20 sources) Abnormal blood chemistry (790.6) Unclassified (20 sources) Abnormal Chest X-Ray (793.99) Unclassified (20 sources) Pre-operative examination, unspecified (V72.84) Unclassified (20 sources) Burning tongue (529.6) Unclassified (20 sources) BMI 22.0-22.9, adult; Translations: [Body mass index 20-24 - normal] 02-18-2019 Unclassified (20 sources) Rash Unclassified (20 sources) Body mass index (BMI) 22.0-22.9, adult; Translations: [Body mass index 20-24 - normal] 02-18-2019 Unclassified (20 sources) RLS (restless legs syndrome) Unclassified (20 sources) Leg cramps (729.82) Unclassified (20 sources) Low back pain with sciatica Unclassified (20 sources) Pharyngitis, unspecified etiology Unclassified (20 sources) Body aches Unclassified (20 sources) Abnormal stool caliber Unclassified (20 sources) Hair loss (Renamed from Thinning hair) Unclassified (20 sources) Wahl's neuroma, left Unclassified (10 sources) UTI symptoms Unclassified (10 sources) Flu-like symptoms Unclassified (10 sources) Upper respiratory infection, viral Unclassified (3 sources) Patient encounter status; Translations: [Pre-operative examination, unspecified] 11-03-2019 Comment on above: With Dr. David martin on Jun 25, 2015 at [facility] [place] Left foot excision or releaseo f 2nd interspace neuroma, exploarion of proximal phalanx 2nd toes Unclassified (8 sources) Headache,Migraine (346.00) Unclassified (10 sources) history of spur removal 04-14-2022 Urinary tract infections (8 sources) Urinary tract infections Results Test Name Value Interpretation Reference Range Facility International normalized rat io (INR) calculationOrdered By: Yash Ortiz on 02-06-2025 INR Coag (Bld) [Relative time] 1.0 {INR} [facility] Prothrombin Time w/INRon INR Coag (PPP) [Relative time] 1.0 {INR} Normal [facility] Comment on above: Performed By: #### L 100.0100, L506.1000, L500.4050, L501.9520 #### [facility] Laboratory [address] [place], [address] PT Coag (PPP) [Time] 12.9 s Normal 11.7-14.9 [facility] Comment on above: Performed By: #### L 100.0100, L506.1000, L500.4050, L501.9520 #### [facility] Laboratory [address] [place], [address] Prothrombin timeOrdered By: Yash Ortiz on 02-06-2025 PT Coag (PPP) [Time] 12.9 s 11.7-14.9 [facility] Lumbar Spine 2 or 3 Viewson 01-06-2025 Lumbar Spine 2 or [address] [facility] Imaging Services [address] [place], [place] [address] Lumbar Spine 2 or 3 Views MR#: [id number] Acct: [id number] Name: SARAH CHÁVEZ Rep #: [id number] : 1955 F 69 From: Mike Pratt MD PCP: Dr. Alex Ovalles MD Status: REG CLI Study: Lumbar Spine 2 or 3 Views Date of Exam: Exam# [id number] Ordering Dr: Padmini Drummond PROCEDURE: LUMBAR SPINE 2 OR 3 VIEWS 01/06/2025 REASON FOR EXAM: LUMBAR DEGENERATIVE DISC DISEASE TECHNIQUE: 3 view(s) of the lumbar spine, AP, lateral and coned-down L5-S1 view COMPARISON: None available FINDINGS: 5 [id number] lumbar vertebral body types. No fracture. Moderate appearing disc space narrowing L1-2. Severe appearing disc space narrowing with degenerative endplate changes and small anterior corner osteophyte formation L2-3. Minimal retrolisthesis L2 on L3 and suggestion of mild right lateral positioning of L2 on L3 on the AP view. Mild disc space narrowing L4-5. Aortic atherosclerotic calcifications. RAD/Lumbar Spine 2 or 3 Views IMPRESSION: Multilevel spondylosis/discogenic change as above appears greatest at L2-3. Reading Location: [facility] CC: Padmini Drummond; Dr. Alex Ovalles MD Structural Rigger: Signed Normal [facility] Absolute lymphocyte countOrd ered By: Alex Ovalles on 11-24-2024 Lymphocytes Auto (Unsp spec) [#/Vol] 2.35 10*3/uL 0.83-4.51 [facility] Absolute neutrophil countOrd ered By: Alex Ovalles on 11-24-2024 Neutrophils (Bld) [#/Vol] 7.6 10*3/uL 2.0-7.7 [facility] Automated lymphocyte count a s percentage of total leukocytesOrdered By: Alex Ovalles on 11-24-2024 Lymphocytes/100 WBC Auto (Unsp spec) 21.8 % 19- [facility] BUN/creatinine ratioOrdered By: Alex Ovalles on 11-24-2024 Urea nitrogen/Creatinine [Mass ratio] 21.0 mg/mg High 10-20 [facility] Basophil percentageOrdered B y: Alex Ovalles on 11-24-2024 Basophils/100 WBC (Bld) 0.6 % 0-1 [facility] Bilirubin, totalOrdered By: Alex Ovalles on 11-24-2024 Bilirubin [Mass/Vol] 0.23 mg/dL 0.00-1.30 [facility] CBC W/Diff, Automatedon Absolute Lymph 2.35 X10 3/uL Normal 0.83-4.51 [facility] Comment on above: Performed By: #### L 100.0100, L506.1000, L500.4050, L501.9520 #### [facility] Laboratory [address] [facility] [place], [address] Absolute Neut 7.6 X10 3/uL Normal 2.0-7.7 [facility] Comment on above: Performed By: #### L 100.0100, L506.1000, L500.4050, L501.9520 #### [facility] Laboratory [address] [place], [address] Basophils/100 WBC (Bld) 0.6 % Normal 0-1 [facility] Comment on above: Performed By: #### L 100.0100, L506.1000, L500.4050, L501.9520 #### [facility] Laboratory [address] [place], [address] Eosinophils/100 WBC (Bld) 0.6 % Normal 0-5 [facility] Comment on above: Performed By: #### L 100.0100, L506.1000, L500.4050, L501.9520 #### [facility] Laboratory [address] [place], [address] Erythrocyte distribution width (RBC) [Ratio] 13.6 % Normal 11.6-14.6 [facility] Comment on above: Performed By: #### L 100.0100, L506.1000, L500.4050, L501.9520 #### [facility] Laboratory [address] [place], [address] Hematocrit (Bld) [Volume fraction] 37.8 % Normal 37-47 [facility] Comment on above: Performed By: #### L 100.0100, L506.1000, L500.4050, L501.9520 #### [facility] Laboratory [address] [place], [address] Hemoglobin (Bld) [Mass/Vol] 12.4 g/dL Normal 12.0-15.0 [facility] Comment on above: Performed By: #### L 100.0100, L506.1000, L500.4050, L501.9520 #### [facility] [address] [place], [address] IG% 0.700 Normal 0.0-0.9 [facility] Comment on above: Result Comment: IG% - Immature Granulocytes (promyelocytes, myelocytes and metamyelocytes) > 1% indicates that a LEFT SHIFT is Present. Performed By: #### L 100.0100, L506.1000, L500.4050, L501.9520 #### [facility] [address] [place], [address] Lymphocytes/100 WBC (Bld) 21.8 % Normal 19-41 [facility] Comment on above: Performed By: #### L 100.0100, L506.1000, L500.4050, L501.9520 #### [facility] [address] [place], [address] MCH (RBC) [Entitic mass] 32.3 pg High 27.0-32.0 [facility] Comment on above: Performed By: #### L 100.0100, L506.1000, L500.4050, L501.9520 #### [facility] [address] [place], [address] MCHC (RBC) [Mass/Vol] 32.8 g/dL Normal 32-36 [facility] Comment on above: Performed By: #### L 100.0100, L506.1000, L500.4050, L501.9520 #### [facility] Laboratory [address] [place], [address] MCV (RBC) [Entitic vol] 98.4 fL Normal 81-99 [facility] Comment on above: Performed By: #### L 100.0100, L506.1000, L500.4050, L501.9520 #### [facility] Laboratory [address] [place], [address] Monocytes/100 WBC (Bld) 6.3 % Normal 0-10 [facility] Comment on above: Performed By: #### L 100.0100, L506.1000, L500.4050, L501.9520 #### [facility] Laboratory [address] [place], [address] Neutrophils/100 WBC (Bld) 70.0 % Normal 47-70 [facility] Comment on above: Performed By: #### L 100.0100, L506.1000, L500.4050, L501.9520 #### [facility] Laboratory [address] [place], [address] Nucleated RBC (Bld) [#/Vol] 0 10*3/uL Normal 0-5 [facility] Comment on above: Performed By: #### L 100.0100, L506.1000, L500.4050, L501.9520 #### [facility] Laboratory [address] [place], [address] Platelet mean volume (Bld) [Entitic vol] 10.2 fL Normal 6.2-12.0 [facility] Comment on above: Performed By: #### L 100.0100, L506.1000, L500.4050, L501.9520 #### [facility] Laboratory [address] [place], [address] Platelets (Bld) [#/Vol] 316 10*3/uL Normal 150-450 [facility] Comment on above: Performed By: #### L 100.0100, L506.1000, L500.4050, L501.9520 #### [facility] Laboratory [address] [place], [address] RBC (Bld) [#/Vol] 3.84 10*6/uL Low 4.2-5.4 [facility] Comment on above: Performed By: #### L 100.0100, L506.1000, L500.4050, L501.9520 #### [facility] [address] [place], [address] RDW SD 49.1 fl High 35.1-43.9 [facility] Comment on above: Performed By: #### L 100.0100, L506.1000, L500.4050, L501.9520 #### [facility] Laboratory [address] [place], [address] WBC (Bld) [#/Vol] 10.8 10*3/uL Normal 4.4-11.0 [facility] Comment on above: Performed By: #### L 100.0100, L506.1000, L500.4050, L501.9520 #### [facility] [address] [place], [address] Carbon dioxide measurementOr dered By: Alex Ovalles on 11-24-2024 CO2 [Moles/Vol] 24.8 mmol/L 22.0-29.0 [facility] Chloride measurementOrdered By: Alex Ovalles on 11-24-2024 Chloride [Moles/Vol] 104 mmol/L 96-108 [facility] Comprehensive Metabolic Prof ilon 11-24-2024 Albumin [Mass/Vol] 4.1 g/dL Normal 3.4-4.8 [facility] Comment on above: Performed By: #### L 100.0100, L506.1000, L500.4050, L501.9520 #### [facility] [address] [place], [address] Albumin/Globulin [Mass ratio] 1.6 {ratio} Normal 0.9-2.4 [facility] Comment on above: Performed By: #### L 100.0100, L506.1000, L500.4050, L501.9520 #### [facility] Laboratory [address] [place], [address] ALK PHOS 72 U/L Normal 35-104 [facility] Comment on above: Performed By: #### L 100.0100, L506.1000, L500.4050, L501.9520 #### [facility] Laboratory [address] [place], [address] ALT [Catalytic activity/Vol] 17 U/L Normal <=34 [facility] Comment on above: Performed By: #### L 100.0100, L506.1000, L500.4050, L501.9520 #### [facility] [address] [place], [address] Anion gap [Moles/Vol] 11 mmol/L Normal 5-15 [facility] Comment on above: Performed By: #### L 100.0100, L506.1000, L500.4050, L501.9520 #### [facility] [address] [place], [address] AST [Catalytic activity/Vol] 20 U/L Normal <=31 [facility] Comment on above: Performed By: #### L 100.0100, L506.1000, L500.4050, L501.9520 #### [facility] [address] [place], [address] Bilirubin [Mass/Vol] 0.23 mg/dL Normal 0.00-1.30 [facility] Comment on above: Performed By: #### L 100.0100, L506.1000, L500.4050, L501.9520 #### [facility] [address] [place], [address] BUN/CRE 21.0 RATIO High 10-20 [facility] Comment on above: Performed By: #### L 100.0100, L506.1000, L500.4050, L501.9520 #### [facility] [address] [place], [address] Calcium [Mass/Vol] 8.9 mg/dL Normal 7.6-11.0 [facility] Comment on above: Performed By: #### L 100.0100, L506.1000, L500.4050, L501.9520 #### [facility] [address] [place], [address] Chloride [Moles/Vol] 104 mmol/L Normal 96-108 [facility] Comment on above: Performed By: #### L 100.0100, L506.1000, L500.4050, L501.9520 #### [facility] [address] [place], [address] CO2 [Moles/Vol] 24.8 mmol/L Normal 22.0-29.0 [facility] Comment on above: Performed By: #### L 100.0100, L506.1000, L500.4050, L501.9520 #### [facility] Laboratory [address] [place], [address] Creatinine [Mass/Vol] 0.51 mg/dL Low 0.70-1.20 [facility] Comment on above: Performed By: #### L 100.0100, L506.1000, L500.4050, L501.9520 #### [facility] Laboratory [address] [place], [address] GFR/1.73 sq M.predicted among non-blacks MDRD (S/P/Bld) [Vol rate/Area] 101 mL/min/{1.73_m2} Normal >60 [facility] Comment on above: Result Comment: mL/m in/1.73m2 CKD-EPI Creatinine Equation (2020) Performed By: #### L 100.0100, L506.1000, L500.4050, L501.9520 #### [facility] [address] [place], [address] Globulin (S) [Mass/Vol] 2.5 g/dL Normal 2.2-4.2 [facility] Comment on above: Performed By: #### L 100.0100, L506.1000, L500.4050, L501.9520 #### [facility] [address] [place], [address] Glucose [Mass/Vol] 134 mg/dL High 70-99 [facility] Comment on above: Performed By: #### L 100.0100, L506.1000, L500.4050, L501.9520 #### [facility] [address] [place], [address] Potassium [Moles/Vol] 3.6 mmol/L Normal 3.3-5.1 [facility] Comment on above: Performed By: #### L 100.0100, L506.1000, L500.4050, L501.9520 #### [facility] [address] [place], [address] Sodium [Moles/Vol] 140 mmol/L Normal 133-145 [facility] Comment on above: Performed By: #### L 100.0100, L506.1000, L500.4050, L501.9520 #### [facility] [address] [place], [address] T PROT 6.6 g/dL Normal 5.9-8.4 [facility] Comment on above: Performed By: #### L 100.0100, L506.1000, L500.4050, L501.9520 #### [facility] [address] [place], [address] Urea nitrogen [Mass/Vol] 11 mg/dL Normal 4-19 [facility] Comment on above: Performed By: #### L 100.0100, L506.1000, L500.4050, L501.9520 #### [facility] [address] [place], [address] Eosinophil percentageOrdered By: Alex Ovalles on 11-24-2024 Eosinophils/100 WBC (Bld) 0.6 % 0-5 [facility] Erythrocyte distribution wid th ratioOrdered By: Alex Ovalles on 11-24-2024 Erythrocyte distribution width (RBC) [Ratio] 13.6 % 11.6-14.6 [facility] Erythrocyte distribution wid th standard deviationOrdered By: Alex Josr on 11-24-2024 Erythrocyte distribution width (RBC) [Entitic vol] 49.1 fL High 35.1-43.9 [facility] Erythrocyte distribution width (RBC) [Ratio] 49.1 fl High 35.1-43.9 [facility] GFR/1.73 sq M.predicted levi g non-blacks MDRD (S/P/Bld) [Vol rate/Area]Ordered By: Alex Ovalles on 11-24-2024 Estimated GFR (MDRD) Non-Af Amer 101 >60 [facility] Comment on above: mL/min/1.73m2 CKD-EP I Creatinine Equation (2020) Glomerular filtration rate ( GFR) estimation/1.73 sq m using serum, plasma, or whole bOrdered By: Alex Ovalles on 11-24-2024 GFR/1.73 sq M.predicted among non-blacks MDRD (S/P/Bld) [Vol rate/Area] 101 mL/min/{1.73_m2} >60 [facility] Comment on above: mL/min/1.73m2 CKD-EP I Creatinine Equation (2020) Hematocrit Auto (Bld) [Volum e fraction]Ordered By: Alex Ovalles on 11-24-2024 Hematocrit (Bld) [Volume fraction] 37.8 % 37-47 [facility] Hemoglobin measurementOrdere d By: Alex Ovalles on 11-24-2024 Hemoglobin (Bld) [Mass/Vol] 12.4 g/dL 12.0-15.0 [facility] Immature granulocytes/100 WB C Auto (Bld)Ordered By: Alex Ovalles on 11-24-2024 Immature granulocytes/100 WBC (Bld) 0.700 % 0.0-0.9 [facility] Comment on above: IG% - Immature Granu locytes (promyelocytes, myelocytes and metamyelocytes) > 1% indicates that a LEFT SHIFT is Present. L506.1001on 11-24-2024 Vitamin D 25-OH 28.5 ng/mL Low 30-100 [facility] Comment on above: Result Comment: Lorena min D Status Deficiency: <20 ng/mL (50nmol/L) Insufficiency: 20-30 ng/mL (50-75 nmol/L) Sufficiency: 30-100 ng/mL (75-250 nmol/L) Toxicity: >100 ng/mL (>250 nmol/L) Performed By: #### L 100.0100, L506.1000, L500.4050, L501.9520 #### [facility] [address] [place], [address] Laboratory - Chemistry and C hemistry - challengeOrdered By: Alex Ovalles on 11-24-2024 AST [Catalytic activity/Vol] 20 U/L <32 [facility] Lymphocytes Auto (Unsp spec) [#/Vol]Ordered By: Alex Ovalles on 11-24-2024 Lymphocytes (Bld) [#/Vol] 2.35 10*3/uL 0.83-4.51 [facility] Lymphocytes/100 WBC Auto (Un sp spec)Ordered By: Alex Ovalles on 11-24-2024 Lymphocytes/100 WBC (Bld) 21.8 % 19-41 [facility] MCV (mean corpuscular volume ) determinationOrdered By: Alex Ovalles on 11-24-2024 MCV (RBC) [Entitic vol] 98.4 fL 81-99 [facility] Mean corpuscular hemoglobin (MCH) determinationOrdered By: Alex Ovalles on 11-24-2024 MCH (RBC) [Entitic mass] 32.3 pg High 27.0-32.0 [facility] Mean corpuscular hemoglobin concentration (MCHC) determinationOrdered By: Alex Ovalles on 11-24-2024 MCHC (RBC) [Mass/Vol] 32.8 g/dL 32-36 [facility] Mean platelet volume determi nationOrdered By: Alex Ovalles on 11-24-2024 Platelet mean volume (Bld) [Entitic vol] 10.2 fL 6.2-12.0 [facility] Monocyte percentageOrdered B y: Alex Ovalles on 11-24-2024 Monocytes/100 WBC (Bld) 6.3 % 0-10 [facility] Neutrophil percentageOrdered By: Alex Ovalles on 11-24-2024 Neutrophils/100 WBC (Bld) 70.0 % 47-70 [facility] Nucleated red blood cell per centageOrdered By: Alex Ovalles on 11-24-2024 Nucleated RBC/100 WBC (Bld) [Ratio] 0 % 0-5 [facility] Platelet countOrdered By: Harshal Ovalles on 11-24-2024 Platelets (Bld) [#/Vol] 316 10*3/uL 150-450 [facility] RBC Auto (Bld) [#/Vol]Ordere d By: Alex Ovalles on 11-24-2024 RBC (Bld) [#/Vol] 3.84 10*6/uL Low 4.2-5.4 [facility] Serum creatinine measurement (mass/volume)Ordered By: Alex Ovalles on 11-24-2024 Creatinine [Mass/Vol] 0.51 mg/dL Low 0.70-1.20 [facility] Serum globulin measurementOr dered By: Aelx Ovalles on 11-24-2024 Globulin (S) [Mass/Vol] 2.5 g/dL 2.2-4.2 [facility] Serum glucose measurement (m ass/volume)Ordered By: Alex Ovalles on 11-24-2024 Glucose [Mass/Vol] 134 mg/dL High 70-99 [facility] Serum or plasma alanine alexandra otransferase (ALT) measurementOrdered By: Alex Ovalles on 11-24-2024 ALT [Catalytic activity/Vol] 17 U/L <35 [facility] Serum or plasma albumin allen urement (mass/volume)Ordered By: lAex Ovalles on 11-24-2024 Albumin [Mass/Vol] 4.1 g/dL 3.4-4.8 [facility] Serum or plasma albumin/glob ulin mass ratioOrdered By: Alex Ovalles 11-24-2024 Albumin/Globulin [Mass ratio] 1.6 {ratio} 0.9-2.4 [facility] Serum or plasma alkaline bertha sphatase measurementOrdered By: Alex Ovalles 11-24-2024 ALP [Catalytic activity/Vol] 72 U/L 35-104 [facility] Serum or plasma anion gap de termination (moles/volume)Ordered By: Alex Ovalles on 11-24-2024 Anion gap [Moles/Vol] 11 mmol/L 5-15 [facility] Serum or plasma calcium allen urement (mass/volume)Ordered By: Alex Ovalles 11-24-2024 Calcium [Mass/Vol] 8.9 mg/dL 7.6-11.0 [facility] Serum or plasma potassium me asurementOrdered By: Alex Ovalles on 11-24-2024 Potassium [Moles/Vol] 3.6 mmol/L 3.3-5.1 [facility] Serum or plasma sodium measu rement (moles/volume)Ordered By: Alex Ovalles on 11-24-2024 Sodium [Moles/Vol] 140 mmol/L 133-145 [facility] Serum or plasma urea nitroge n measurement (mass/volume)Ordered By: Alex Ovalles on 11-24-2024 Urea nitrogen [Mass/Vol] 11 mg/dL 4-19 [facility] TSH DL <= 0.005 mIU/L QnOrde red By: Alex Ovalles on 11-24-2024 Thyroid Stimulating Hormone (TSH) 1.350 uIU/mL 0.300-4.200 [facility] TSH Qn 1.350 uIU/mL 0.300-4.200 [facility] Thyroid Stim Hormone (TSH)on 11-24-2024 TSH 1.350 uIU/mL Normal 0.300-4.200 [facility] Comment on above: Performed By: #### L 100.0100, L506.1000, L500.4050, L501.9520 #### [facility] Laboratory [address] [place], [place], [id number] Total proteinOrdered By: Alex Ovalles on 11-24-2024 Protein [Mass/Vol] 6.6 g/dL 5.9-8.4 [facility] Vitamin D, 25-hydroxyOrdered By: Alex Ovalles on 11-24-2024 Vitamin D 25-Hydroxy 28.5 ng/mL Low 30-100 [facility] Comment on above: Vitamin D StatusDefi ciency: <20 ng/mL (50nmol/L)Insufficiency: 20-30 ng/mL (50-75 nmol/L)Sufficiency: 30-100 ng/mL (75-250 nmol/L)Toxicity: >100 ng/mL (>250 nmol/L) White blood cell (WBC) count Ordered By: Alxe Ovalles on 11-24-2024 WBC (Bld) [#/Vol] 10.8 10*3/uL 4.4-11.0 [facility] Chest PA and Lateralon 09-21 Chest PA and Lateral [facility] Imaging Services [address] [place], [place] [id number] Chest PA and Lateral MR#: [id number] Acct: [id number] Name: SARAH CHÁVEZ Rep #: [id number] : 1955 F 68 From: Vikash mo MD PCP: Dr. Alex Ovalles MD Status: [facility] ER Study: Chest PA and Lateral Date of Exam: 09/21/24 Exam# [id number] Ordering Dr: Darell Davidson DO [id number] INDICATION: cough EXAMINATION/TECHNIQUE: X-RAY - XR Chest 2 Views COMPARISON: Prior study dated: 05/27/24 FINDINGS: LINES/DEVICES: None. LUNGS: The lungs are well expanded. No consolidation, edema or effusion. No pneumothorax. Calcifications at the right midlung unchanged. MEDIASTINUM AND CARDIOVASCULAR STRUCTURES: Cardiac silhouette not enlarged. Central airways and mediastinal contour are unremarkable. BONES AND SOFT TISSUES: No acute abnormality. RAD/Chest PA and Lateral IMPRESSION: No acute pulmonary finding. Electronically Signed: Vikash Cutler MD at 6:38 EST , CC: Dr. Alex Ovalles MD; Darell Davidson DO Structural Rigger: Signed Normal [facility] Emergency Department Summary on 09-21-2024 Emergency Department Summary [facility] Medical Records Department [address] [place] [id number] Emergency Department Summary 09/21/24 MR#: [id number] Acct: [id number] Name: SARAH CHÁVEZ Rep #: [id number] : 1955 68 From: Darell Davidson DO PCP: Dr. Alex Ovalles MD Status:[facility] ER Location: ED HPI History of Present Illness Chief Complaint: General Illness Informant: patient Narrative Narrative: Patient is a 68-year-old female with past medical history of GERD and osteoarthritis. She states she has had 4 to 5 days of congestion drainage and cough. She denies any known sick contacts or history of lung disorders such as asthma COPD or emphysema. She states that because of the persistent cough she is concerned she may have developed pneumonia and secondary to this comes to the hospital for evaluation. [facility] Medical History Irregular heart beat GERD (gastroesophageal reflux disease) history of spur removal Anemia Arthritis Home Medications ???Medication ???Instructions ???Recorded ???Last Taken ???Type epinephrine 0.3 mg/0.3 mL 0.3 mg (0.3 mL) IM X1 ##1 04/04/20 Unknown Rx injection, auto-injector pantoprazole 40 mg tablet,delayed 40 mg PO BID 04/04/20 Unknown History release epinephrine 0.3 mg/0.3 mL 0.3 mg (0.3 mL) IM X1 PRN 04/05/20 Unknown Rx injection, auto-injector Anaphylaxis ##1 azelastine 137 mcg (0.1 %) nasal 2 spray intranasal BID #30 mL 09/21/24 Unknown Rx spray hydrocodone-homatropin e 5 mg-1.5 5 ml PO 4X/DAY PRN cough 7 days 09/21/24 Unknown Rx mg/5 mL (5 mL) oral syrup (Hycodan) #140 mL prednisone 20 mg tablet 40 mg (2 x 20 mg) PO DAILY 5 days 09/21/24 Unknown Rx #10 tabs Allergy/AdvReac Type Severity Reaction Status Date / Time bee venom protein (honey bee) Allergy Anaphylaxis Verified 09/21/24 04:31 gabapentin Allergy DIZZY AND Verified 09/21/24 04:31 LIGHTHEADED Surgical History History of hysterectomy History of appendectomy Social History Smoking Status: Never smoker alcohol intake: never ROS ROS ED Constitutional Constitutional ED: Denies chills or fever(s) Eyes Eyes: Denies blurry vision or change in vision ENT ENT ED: Reports rhinorrhea and sore throat Cardiovascular Cardiovascular: Denies chest pain Respiratory/Chest Respiratory/Chest: Reports cough and dyspnea Gastrointestinal Gastrointestinal: Denies abdominal pain, diarrhea, nausea or vomiting Genitourinary Genitourinary ED: Denies dysuria Musculoskeletal Musculoskeletal: Reports myalgias Integumentary Denies rash Neurologic Neurologic: Denies headache(s) Hematologic/Lymphatic Hematologic/Lymphatic: Denies easy bleeding or easy bruising Allergic/Immunologic Allergic/Immunologic ED: Denies mouth swelling or tongue swelling EXAM Physical Exam Const Vital Signs: 09/21/24 04:31 09/21/24 04:31 09/21/24 04:34 Temperature 98.8 F 98.8 F Temperature Source Oral Oral Pulse Rate 105 H 101 H Respiratory Rate 20 H 20 H Respiratory Effort Normal Non-Labored Respiratory Pattern Normal Blood Pressure 132/60 H 132/60 H Blood Pressure Mean 84 84 Pulse Ox 99 99 Oxygen Delivery Method Room Air Room Air 09/21/24 05:34 09/21/24 06:34 Temperature 98.8 F 98.4 F Temperature Source Oral Oral Pulse Rate 99 100 Respiratory Rate 20 H 22 H Respiratory Effort Respiratory Pattern Blood Pressure 113/62 104/59 L Blood Pressure Mean 79 74 Pulse Ox 93 94 Oxygen Delivery Method Room Air Room Air Positive well nourished and well developed General Appearance ED: well developed; Negative for pallor HEENT HEENT Narrative: Nasal mucosa is hyperemic and boggy There is cobblestoning noted in the posterior pharynx consistent with sinus drainage without airway edema or compromise No secondary findings in the posterior pharynx to suggest infection Eyes PERRL and EOMs intact bilaterally General Eye ED: Negative for scleral icterus Neck supple and No no JVD Neck Narrative: No nuchal rigidity or meningeal signs Resp normal respiratory effort Resp Narrative: Breath sounds are diminished throughout with diffuse expiratory wheeze however no nasal flaring retractions tachypnea or accessory muscle use Cardio regular rate and regular rhythm Extremity normal to inspection Extremity Narrative: No asymmetric edema no pitting edema negative Homans' sign bilaterally Neuro oriented x3, CN's II-XII intact bilaterally and no sensory deficits noted Sensorium / Orientation: alert Motor Exam: strength 5/5 throughout Psych mental status grossly normal Skin no rashes or lesions noted [facility] (more content not included)... Normal [facility] Influenza virus A and B and SARS-CoV-2 (COVID-19) and Respiratory syncytial virus RNAOrdered By: Darell Davidson on 09-21-2024 SARS-CoV-2 (COVID-19) RNA AKIL+probe Ql (Unsp spec) [facility] M100.678on 09-21-2024 M100.678 Pending SARS-CoV-2 (COVID 19) Negative INFLUENZA A Negative INFLUENZA B Negative RSV PCR Negative Normal [facility] Comment on above: Performed By: #### M 100.678 #### [facility] Laboratory [address] [place], [address] Culture, Anaerobic Any Sourc patricia 06-30-2024 CUAN AEROBIC SWAB ONLY ANAEROBIC GROWTH MAY BE INHIBITED No growth in 5 days. Normal [facility] Comment on above: Performed By: #### L 100.0100, L506.1000, L500.4050, L501.9520 #### [facility] Laboratory [address] [place], [address] Wound Cultureon 06-28-2024 WC AEROBIC SWAB ONLY ANAEROBIC GROWTH MAY BE INHIBITED Enterococcus faecalis Amount Growth Very Rare Enterococcus faecalis: REACTION Ampicillin Islt ADINA <=2 Gentamicin Synergy Susc Islt SYN-S S Linezolid Islt ADINA 2 S Streptomycin High Pot Susc Islt SYN-S S Vancomycin Islt ADINA 2 S Normal [facility] Comment on above: Performed By: #### L 100.0100, L506.1000, L500.4050, L501.9520 #### [facility] Laboratory [address] [place], [address] Wound Ctr History AND Physic dandy 06-27-2024 Wound Ctr History & Physical [facility] [address] [place] [address] H P Exam - Wound Care 06/27/24 1224 MR#: [id number] Acct: [id number] Name: SARAH CHÁVEZ Rep #: [id number] : 1955 68 From: Casandra Sepulveda DO PCP: Dr. Alex Ovalles MD Status:REG RCR Location: History of Present Illness Date of Service: 06/27/24 Chief Complaint: left forearm skin tear History of Wound: Sarah is a pleasant 68 yo woman who presents to the wound center for evaluation and treatment of an ulcer of her left forearm that occurred when she was giving her grandchildren a bath and her arm slipped and her skin pulled back and she had bleeding and covered her arm with gauze to control bleeding. She removed the dressing on Sunday and the gauze was stuck in her ulcer and she was unable to remove it even after soaking it in warm water. She ultimately trimmed the gauze close to the edge of the ulcers and saw her PCP who referred her to the wound center for further treatment and prescribed her Keflex and gave her an injection with an antibiotic. She has been covering the area with gauze and coban and changing it daily. She has light drainage. She has a history of fragile skin and gets skin tears easily but has not had gauze get stuck like this. She has no other significant medical history. She denies odor, erythema, fever or chills. [facility] Medical History Irregular heart beat GERD (gastroesophageal reflux disease) history of spur removal Anemia Arthritis Home Medications ???Medication ???Instructions ???Recorded ???Last Taken ???Type epinephrine 0.3 mg/0.3 mL 0.3 mg (0.3 mL) IM X1 ##1 04/04/20 Unknown Rx injection, auto-injector pantoprazole 40 mg tablet,delayed 40 mg PO BID 04/04/20 Unknown History release epinephrine 0.3 mg/0.3 mL 0.3 mg (0.3 mL) IM X1 PRN 04/05/20 Unknown Rx injection, auto-injector Anaphylaxis ##1 celecoxib 200 mg capsule 200 mg PO DAILY 07/06/21 Unknown History ciprofloxacin HCl 500 mg tablet 500 mg PO BID #20 tabs 03/18/23 Unknown Rx (Cipro) hydrocodone-acetaminop hen 5-325mg 1 tab PO Q6H PRN PRN Pain 3 days 03/18/23 Unknown Rx 5mg-325mg #10 TABLETS metronidazole 500 mg tablet 500 mg PO TID #30 tabs 03/18/23 Unknown Rx ondansetron 4 mg disintegrating 4 mg PO Q8H PRN PRN Nausea #14 tabs 03/18/23 Unknown Rx tablet phenazopyridine 200 mg tablet 200 mg PO TID 6 doses #6 tabs 03/18/23 Unknown Rx (Pyridium) cephalexin 500 mg capsule 500 mg PO Q6 #40 CAPSULES 05/13/23 Unknown Rx Allergy/AdvReac Type Severity Reaction Status Date / Time bee venom protein (honey bee) Allergy Anaphylaxis Verified 05/13/23 16:51 gabapentin Allergy DIZZY AND Verified 05/13/23 16:51 LIGHTHEADED no significant family history Surgical History History of hysterectomy History of appendectomy Social History Smoking Status: Never smoker alcohol intake: never ROS Constitutional Constitutional: Denies chills, fatigue or fever(s) Eyes Eyes: Denies blurry vision, change in vision or loss of vision ENT HEENT: Denies dysphagia, hearing loss or sore throat Cardiovascular Cardiovascular: Denies chest pain, edema or palpitations Respiratory/Chest Respiratory/Chest: Denies dry cough, dyspnea, dyspnea on exertion, productive cough or wheezing Gastrointestinal Gastrointestinal: Denies diarrhea, nausea or vomiting Genitourinary Genitourinary: Denies dysuria or polyuria Musculoskeletal Musculoskeletal: Denies arthralgias, joint stiffness or muscle weakness Integumentary Integumentary: Reports erythema and wounds Neurologic Neurologic: Denies dizziness, memory loss or weakness Psychiatric Psychiatric: Denies homicidal ideation or suicidal ideation Endocrine Endocrinology: Denies polydipsia, polyphagia or polyuria Hematologic/Lymphatic Hematologic/Lymphatic: Denies easy bleeding or easy bruising Allergic/Immunologic Allergic/Immunologic: Denies throat swelling, tongue swelling or urticaria Vital Signs Vital Signs Vital Signs: 06/27/24 09:14 Temperature 98.1 F Temperature Source Temporal Pulse Rate 89 Respiratory Rate 18 Blood Pressure 141/78 H Blood Pressure Mean 99 Blood Pressure Source Monitor Blood Pressure Position Semi-Fowlers Blood Pressure Location Left Arm Weight Weight: 52.163 kg Body Mass Index (BMI) 21.0 Physical Exam Const alert, oriented x3 and no apparent distress General Appearance: cooperative and comfortable HEENT normocephalic and head/scalp atraumatic Resp normal respiratory effort Effort and Inspection: able to speak in complete sentences Cardio regular rate and regular rhythm Skin Wounds: (more content not included)... Normal [facility] Gram Stainon 06-25-2024 GS AEROBIC SWAB ONLY ANAEROBIC GROWTH MAY BE INHIBITED Gram Stain No organisms seen Normal [facility] Comment on above: Performed By: #### M 100.2000, M100.4001, M8200.1075, M100.3000 #### [facility] Laboratory [address] [place], [address] M8200.1075on 06-25-2024 M8200.1075 AEROBIC SWAB ONLY ANAEROBIC GROWTH MAY BE INHIBITED Pending MRSA PCR MRSA NEGATIVE STAPH. AUREUS PCR STAPH. AUREUS NEGATIVE Normal [facility] Comment on above: Performed By: #### M 100.1999, M100.4001, M8200.1075, M100.3000 #### [facility] Laboratory [address] [place], [address] CBC W/Diff, Automatedon 09-0 Absolute Lymph 2.06 X10 3/uL Normal 0.83-4.51 [facility] Comment on above: Performed By: #### L 100.0100, L506.1000, L500.4050, L501.9520 #### [facility] Laboratory [address] [place], [address] Absolute Neut 7.9 X10 3/uL High 2.0-7.7 [facility] Comment on above: Performed By: #### L 100.0100, L506.1000, L500.4050, L501.9520 #### [facility] Laboratory [address] [place], [address] Basophils/100 WBC (Bld) 0.4 % Normal 0-1 [facility] Comment on above: Performed By: #### L 100.0100, L506.1000, L500.4050, L501.9520 #### [facility] Laboratory [address] [place], [address] Eosinophils/100 WBC (Bld) 1.3 % Normal 0-5 [facility] Comment on above: Performed By: #### L 100.0100, L506.1000, L500.4050, L501.9520 #### [facility] Laboratory [address] [place], [address] Erythrocyte distribution width (RBC) [Ratio] 13.0 % Normal 11.6-14.6 [facility] Comment on above: Performed By: #### L 100.0100, L506.1000, L500.4050, L501.9520 #### [facility] Laboratory [address] [place], [address] Hematocrit (Bld) [Volume fraction] 40.5 % Normal 37-47 [facility] Comment on above: Performed By: #### L 100.0100, L506.1000, L500.4050, L501.9520 #### [facility] Laboratory [address] [place], [address] Hemoglobin (Bld) [Mass/Vol] 13.2 g/dL Normal 12.0-15.0 [facility] Comment on above: Performed By: #### L 100.0100, L506.1000, L500.4050, L501.9520 #### [facility] Laboratory [address] [place], [address] IG% 0.800 Normal 0.0-0.9 [facility] Comment on above: Result Comment: IG% - Immature Granulocytes (promyelocytes, myelocytes and metamyelocytes) > 1% indicates that a LEFT SHIFT is Present. Performed By: #### L 100.0100, L506.1000, L500.4050, L501.9520 #### [facility] Laboratory [address] [place], [address] Lymphocytes/100 WBC (Bld) 18.4 % Low 19-41 [facility] Comment on above: Performed By: #### L 100.0100, L506.1000, L500.4050, L501.9520 #### [facility] Laboratory [address] [place], [address] MCH (RBC) [Entitic mass] 31.7 pg Normal 27.0-32.0 [facility] Comment on above: Performed By: #### L 100.0100, L506.1000, L500.4050, L501.9520 #### [facility] Laboratory [address] [place], [address] MCHC (RBC) [Mass/Vol] 32.6 g/dL Normal 32-36 [facility] Comment on above: Performed By: #### L 100.0100, L506.1000, L500.4050, L501.9520 #### [facility] Laboratory [address] [place], [address] MCV (RBC) [Entitic vol] 97.4 fL Normal 81-99 [facility] Comment on above: Performed By: #### L 100.0100, L506.1000, L500.4050, L501.9520 #### [facility] Laboratory [address] [place], [address] Monocytes/100 WBC (Bld) 8.6 % Normal 0-10 [facility] Comment on above: Performed By: #### L 100.0100, L506.1000, L500.4050, L501.9520 #### [facility] Laboratory [address] [place], [address] Neutrophils/100 WBC (Bld) 70.5 % High 47-70 [facility] Comment on above: Performed By: #### L 100.0100, L506.1000, L500.4050, L501.9520 #### [facility] Laboratory [address] [place], [address] Nucleated RBC (Bld) [#/Vol] 0 10*3/uL Normal 0-5 [facility] Comment on above: Performed By: #### L 100.0100, L506.1000, L500.4050, L501.9520 #### [facility] Laboratory [address] [place], [address] Platelet mean volume (Bld) [Entitic vol] 9.8 fL Normal 6.2-12.0 [facility] Comment on above: Performed By: #### L 100.0100, L506.1000, L500.4050, L501.9520 #### [facility] Laboratory [address] [place], [address] Platelets (Bld) [#/Vol] 352 10*3/uL Normal 150-450 [facility] Comment on above: Performed By: #### L 100.0100, L506.1000, L500.4050, L501.9520 #### [facility] Laboratory [address] [place], [address] RBC (Bld) [#/Vol] 4.16 10*6/uL Low 4.2-5.4 [facility] Comment on above: Performed By: #### L 100.0100, L506.1000, L500.4050, L501.9520 #### [facility] Laboratory [address] [place], [address] RDW SD 46.5 fl High 35.1-43.9 [facility] Comment on above: Performed By: #### L 100.0100, L506.1000, L500.4050, L501.9520 #### [facility] Laboratory [address] [place], [address] WBC (Bld) [#/Vol] 11.2 10*3/uL High 4.4-11.0 [facility] Comment on above: Performed By: #### L 100.0100, L506.1000, L500.4050, L501.9520 #### [facility] Laboratory [address] [place], [address] Comprehensive Metabolic Prof ilon 05-27-2024 Albumin [Mass/Vol] 3.3 g/dL Normal 3.2-5.0 [facility] Comment on above: Performed By: #### L 100.0100, L506.1000, L500.4050, L501.9520 #### [facility] Laboratory [address] [place], [address] Albumin/Globulin [Mass ratio] 0.9 {ratio} Normal 0.9-2.4 [facility] Comment on above: Performed By: #### L 100.0100, L506.1000, L500.4050, L501.9520 #### [facility] Laboratory [address] [place], [address] ALK P 75 U/L Normal 45-117 [facility] Comment on above: Performed By: #### L 100.0100, L506.1000, L500.4050, L501.9520 #### [facility] Laboratory [address] [place], [address] ALT [Catalytic activity/Vol] 25 U/L Normal 13-56 [facility] Comment on above: Performed By: #### L 100.0100, L506.1000, L500.4050, L501.9520 #### [facility] Laboratory [address] [place], [address] AST [Catalytic activity/Vol] 13 U/L Low 15-37 [facility] Comment on above: Performed By: #### L 100.0100, L506.1000, L500.4050, L501.9520 #### [facility] Laboratory [address] [place], [address] Bilirubin [Mass/Vol] 0.60 mg/dL Normal 0.20-1.00 [facility] Comment on above: Result Comment: For patients on eltrombopag therapy, use of Dimension [place] TBIL is not recommended. Performed By: #### L 100.0100, L506.1000, L500.4050, L501.9520 #### [facility] Laboratory [address] [place], [address] BUN/CRE 16.8 RATIO Normal 10-20 [facility] Comment on above: Performed By: #### L 100.0100, L506.1000, L500.4050, L501.9520 #### [facility] Laboratory [address] [place], [address] CA,Total 9.4 mg/dL Normal 8.5-10.1 [facility] Comment on above: Performed By: #### L 100.0100, L506.1000, L500.4050, L501.9520 #### [facility] Laboratory [address] [place], [address] Chloride [Moles/Vol] 106 mmol/L Normal 98-107 [facility] Comment on above: Performed By: #### L 100.0100, L506.1000, L500.4050, L501.9520 #### [facility] Laboratory [address] [place], [address] CO2 [Moles/Vol] 28.0 mmol/L Normal 21.0-32.0 [facility] Comment on above: Performed By: #### L 100.0100, L506.1000, L500.4050, L501.9520 #### [facility] Laboratory [address] [place], [address] Creatinine [Mass/Vol] 0.54 mg/dL Low 0.55-1.02 [facility] Comment on above: Result Comment: The validity of the calculated GFR GFRAA in patients over 70 years has not been determined. Clinical correlation is essential. Performed By: #### L 100.0100, L506.1000, L500.4050, L501.9520 #### [facility] Laboratory [address] [place], [address] EST GFR - AA 145 mL/min Normal >60 [facility] Comment on above: Result Comment: Afri can [place] GFR Calc Performed By: #### L 100.0100, L506.1000, L500.4050, L501.9520 #### [facility] Laboratory [address] [place], [address] GAP 5 Normal 5-15 [facility] Comment on above: Performed By: #### L 100.0100, L506.1000, L500.4050, L501.9520 #### [facility] Laboratory [address] [place], [address] GFR/1.73 sq M.predicted among non-blacks MDRD (S/P/Bld) [Vol rate/Area] 120 mL/min/{1.73_m2} Normal >60 [facility] Comment on above: Result Comment: Non- GFR Calc Performed By: #### L 100.0100, L506.1000, L500.4050, L501.9520 #### [facility] [address] [place], [address] Globulin (S) [Mass/Vol] 3.8 g/dL Normal 2.2-4.2 [facility] Comment on above: Performed By: #### L 100.0100, L506.1000, L500.4050, L501.9520 #### [facility] [address] [place], [address] Glucose [Mass/Vol] 98 mg/dL Normal 74-106 [facility] Comment on above: Performed By: #### L 100.0100, L506.1000, L500.4050, L501.9520 #### [facility] [address] [place], [address] Potassium [Moles/Vol] 3.8 mmol/L Normal 3.5-5.1 [facility] Comment on above: Performed By: #### L 100.0100, L506.1000, L500.4050, L501.9520 #### [facility] [address] [place], [address] Sodium [Moles/Vol] 139 mmol/L Normal 136-145 [facility] Comment on above: Performed By: #### L 100.0100, L506.1000, L500.4050, L501.9520 #### [facility] [address] [place], [address] T PROT 7.1 g/dL Normal 6.4-8.2 [facility] Comment on above: Performed By: #### L 100.0100, L506.1000, L500.4050, L501.9520 #### [facility] [address] [place], [address] Urea nitrogen [Mass/Vol] 9 mg/dL Normal 7-18 [facility] Comment on above: Performed By: #### L 100.0100, L506.1000, L500.4050, L501.9520 #### [facility] [address] [place], [address] Ribs Uni Min 3V w/PA Cheston 05-27-2024 Ribs Uni Min 3V w/PA Chest [facility] Imaging Services [address] [place] [address] Ribs Uni Min 3V w/PA Chest MR#: [id number] Acct: [id number] Name: SARAH CHÁVEZ Rep #: [id number] : 1955 F 68 From: Hever Billingsley MD PCP: Dr. Alex Ovalles MD Status: REG CLI Study: Ribs Uni Min 3V w/PA Chest Date of Exam: 05/27 Exam# [id number] Ordering Dr: Alex Ovalles MD [id number] STUDY: X-RAY - UNILATERAL RIBS ( RIGHT ) WITH CHEST REASON FOR EXAM: Female, 68 years old. Rib pain. TECHNIQUE - RIBS: 3 view(s) of the ribs. TECHNIQUE - CHEST: Single frontal view of the chest. COMPARISON: Chest dated July 18, 2020 FINDINGS - RIBS: Osteopenia of the osseous structures. No displaced rib fracture. FINDINGS - CHEST: The lungs are clear and expanded. There is no demonstrated pleural abnormality. Borderline cardiomegaly unchanged. Normal mediastinum and audra. Normal visualized pulmonary arteries. Stable aortic tortuosity. No abnormality of the visualized soft tissue structures of the upper abdomen. RAD/Ribs Uni Min 3V w/PA Chest IMPRESSION: RIBS: Osteopenia with no displaced rib fracture. CHEST: Stable chest with no acute finding. Electronically Signed: Hever Billingsley MD at 12:32 EDT , CC: Dr. Alex Ovalles MD Structural Rigger: Signed Normal [facility] Thyroid Stim Hormone (TSH)on 05-27-2024 TSH 1.020 uIU/mL Normal 0.358-3.740 [facility] Comment on above: Performed By: #### L 100.0100, L506.1000, L500.4050, L501.9520 #### [facility] [address] [place], [place], [id number] Vitamin D,25 Hydroxyon 05-27 Vitamin D 25-OH 25.9 ng/mL Normal [facility] Comment on above: Result Comment: Lorena min D 25(OH) Status Range Deficiency <20 ng/mL (50nmol/L) Insufficiency 20 - 30 ng/mL (50 - 75 nmol/L) Sufficiency 30 - 100 ng/mL (75 - 250 nmol/L) Toxicity >100 ng/mL (>250 nmol/L) Performed By: #### L 100.0100, L506.1000, L500.4050, L501.9520 #### [facility] [address] [facility] [place], [address] M100.678on 04-17-2024 M100.678 Normal Reference Ran ge = Negative FLUABV+SARS-CoV-2+RSV Pnl Resp AKIL+probe GeneXpert Instrument, PCR method SARS-CoV-2 (COVID 19) Negative INFLUENZA A Negative INFLUENZA B Negative RSV PCR Negative Normal [facility] Comment on above: Performed By: #### M 100.678 #### [facility] [address] [facility] [place], [address] MA MAMMOGRAM SCREENING BILAT ERAL W/TOMOon 01-17-2024 MA MAMMOGRAM SCREENING BILATERAL W/[place] ORIGINAL FROM: [place] [address] [place], [place] [address] PROCEDURE FOR: SARAH CHÁVEZ [address] [place] [id number] Home: PID#: [id number] Exam#: [id number] : 1955 Age: 68 TO: ERIKA SUN MD [address] [facility] [address] [place] [address] Fax: NO FAX EXAMINATION: SCREENING DIGITAL BILATERAL MAMMOGRAM WITH TOMOSYNTHESIS, 01/14/2024 1:32 pm TECHNIQUE: Screening mammography of the bilateral breasts was performed with tomosynthesis. 2D standard and 3D tomosynthesis combination imaging performed through both breasts in the MLO and CC projection. Computer aided detection was utilized in the interpretation of this exam. COMPARISON: 09/23/2020 HISTORY: Breast cancer screening. FINDINGS: BREAST DENSITY: Heterogeneously dense There are benign appearing calcifications in both breast. There are no significant masses or calcifications. IMPRESSION: No mammographic evidence of malignancy. Continued screening with annual mammograms is recommended. Tyrer Cuzick risk calculations, generated with the history provided, report this patient's 10 year risk and lifetime risk for developing breast cancer at 3.6% and 6.6%, respectively. Based on this assessment tool, if the patient's calculated lifetime risk is below 20%, then the patient is considered at average risk for developing breast cancer. If the patient's calculated lifetime risk is at or above 20%, then the patient is considered high risk for developing breast cancer and may be a candidate for supplemental breast MRI screening in addition to annual mammographic screening per the [employer] [place]. BIRADS: MAMMOGRAM BI-RADS: 2: Benign finding RECALL: 1 year screening RECALL TYPE: mammo LETTER SENT: Normal BI-RADS 1 and 2 Interpreted by: Dale Peace MD Preliminary Report By: Dale Peace MD Electronically signed By Dale Peace MD Dictated Date: 01/17/2024 10:55:33 AM Prelim Date: 01/17/2024 11:02:39 AM Sign Date: 01/17/2024 11:02:39 AM Ordering Provider: ERIKA SUN [employer] Supervisor: GENNY BURNS RT(R)(M)(CT) JUNIOR SALES ASSISTANT letter sent: Normal BI-RADS 1 and 2 Mammogram BI-RADS: 2 Benign Normal [facility] ([place]) Absolute lymphocyte countOrd ered By: Alex Ovalles on 11-06-2023 Lymphocytes Auto (Unsp spec) [#/Vol] 2.92 10*3/uL 0.83-4.51 [facility] Automated lymphocyte count a s percentage of total leukocytesOrdered By: Alex Ovalles on 11-06-2023 Lymphocytes/100 WBC Auto (Unsp spec) 23.0 % 19-41 [facility] Basophil percentageOrdered B y: Alex Ovalles on 11-06-2023 Basophils/100 WBC (Bld) 0.5 % 0-1 [facility] Bilirubin [Mass/Vol] 0.40 mg/dL 0.20-1.00 [facility] Comment on above: For patients on eltr ombopag therapy, use of Dimension [place] TBIL is not recommended. Chloride [Moles/Vol] 106 mmol/L 98-107 [facility] Eosinophils/100 WBC (Bld) 0.9 % 0-5 [facility] Glucose [Mass/Vol] 93 mg/dL 74-106 [facility] Hemoglobin (Bld) [Mass/Vol] 13.2 g/dL 12.0-15.0 [facility] Monocytes/100 WBC (Bld) 7.4 % 0-10 [facility] Neutrophils (Bld) [#/Vol] 8.6 10*3/uL 2.0-7.7 [facility] Neutrophils/100 WBC (Bld) 67.3 % 47-70 [facility] Potassium [Moles/Vol] 3.7 mmol/L 3.5-5.1 [facility] Protein [Mass/Vol] 7.2 g/dL 6.4-8.2 [facility] Sodium [Moles/Vol] 140 mmol/L 136-145 [facility] WBC (Bld) [#/Vol] 12.7 10*3/uL 4.4-11.0 [facility] Determination of erythrocyte mean corpuscular volume (MCV)Ordered By: Alex Ovalles on 11-06-2023 MCV (RBC) [Entitic vol] 97.9 fL 81-99 [facility] Erythrocyte distribution wid th ratioOrdered By: [facility] 11-06-2023 Erythrocyte distribution width (RBC) [Ratio] 12.8 % 11.6-14.6 [facility] Erythrocyte distribution wid th standard deviationOrdered By: [facility] 11-06-2023 Erythrocyte distribution width (RBC) [Entitic vol] 46.2 fL 35.1-43.9 [facility] Hematocrit Auto (Bld) [Volum e fraction]Ordered By: [facility] 11-06-2023 Hematocrit (Bld) [Volume fraction] 42.0 % 37-47 [facility] Immature granulocytes/100 WB C Auto (Bld)Ordered By: Alex Josr 11-06-2023 Immature granulocytes/100 WBC (Bld) 0.900 % 0.0-0.9 [facility] Comment on above: IG% - Immature Granu locytes (promyelocytes, myelocytes and metamyelocytes) > 1% indicates that a LEFT SHIFT is Present. Laboratory - Chemistry and C hemistry - challengeOrdered By: Alex Ovalles 11-06-2023 Albumin/Globulin [Mass ratio] 0.8 {ratio} 0.9-2.4 [facility] ALP [Catalytic activity/Vol] 81 U/L 45-117 [facility] ALT [Catalytic activity/Vol] 21 U/L 13-56 [facility] CO2 [Moles/Vol] 29.0 mmol/L 21.0-32.0 [facility] Globulin (S) [Mass/Vol] 3.9 g/dL 2.2-4.2 [facility] Urea nitrogen/Creatinine [Mass ratio] 18.2 mg/mg 10-20 [facility] Laboratory - Hematology and Cell countsOrdered By: Alex Ovalles on 11-06-2023 MCH (RBC) [Entitic mass] 30.8 pg 27.0-32.0 [facility] MCHC (RBC) [Mass/Vol] 31.4 g/dL 32-36 [facility] Nucleated RBC/100 WBC (Bld) [Ratio] 0 % 0-5 [facility] Platelet mean volume (Bld) [Entitic vol] 10.1 fL 6.2-12.0 [facility] Platelets (Bld) [#/Vol] 370 10*3/uL 150-450 [facility] No Panel InformationOrdered By: Alex Ovalles on 11-06-2023 Estimated GFR (MDRD) Amer 127 mL/min >60 [facility] Comment on above: GFR Calc Estimated GFR (MDRD) Non-Af Amer 105 mL/min >60 [facility] Comment on above: Non- GFR Calc Vitamin D 25-Hydroxy 32.0 ng/mL [facility] Comment on above: Vitamin D 25(OH) Sta tus Range Deficiency <20 ng/mL (50nmol/L) Insufficiency 20 - 30 ng/mL (50 - 75 nmol/L) Sufficiency 30 - 100 ng/mL (75 - 250 nmol/L) Toxicity >100 ng/mL (>250 nmol/L) RBC Auto (Bld) [#/Vol]Ordere d By: Alex Ovalles on 11-06-2023 RBC (Bld) [#/Vol] 4.29 10*6/uL 4.2-5.4 [facility] Serum or plasma calcium allen urement (mass/volume)Ordered By: Alex Ovalles on 11-06-2023 Calcium [Mass/Vol] 9.5 mg/dL 8.5-10.1 [facility] Serum or plasma creatinine m easurement (mass/volume)Ordered By: Alex Ovalles on 11-06-2023 Creatinine [Mass/Vol] 0.60 mg/dL 0.55-1.02 [facility] Comment on above: The validity of the calculated GFR & GFRAA in patients over 70 years has not been determined. Clinical correlation is essential. Serum or plasma thyroid stim ulating hormone (TSH) measurement (units/volume)Ordered By: Alex Ovalles on 11-06-2023 TSH Qn 1.34 uIU/mL 0.358-3.74 [facility] Serum or plasma urea nitroge n measurement (mass/volume)Ordered By: Alex Ovalles on 11-06-2023 Urea nitrogen [Mass/Vol] 11 mg/dL 7-18 [facility] Thin prep Papanicolaou smear with manual screeningOrdered By: Alex Ovalles on 11-06-2023 Thin prep Papanicolaou smear with manual screening 3.3 g/dL 3.2-5.0 [facility] Thin prep Papanicolaou smear with manual screening 12 U/L 15-37 [facility] Thin prep Papanicolaou smear with manual screening 5 5-15 [facility] Gram stain for investigation of transfusion reactionOrdered By: Alex Ovalles on 05-14-2023 Microscopic observation Gram stain Nom (Unsp spec) [facility] No Panel InformationOrdered By: Alex Ovalles on 05-14-2023 Methicillin-Resist S.aureus DNA PCR Negative Negative [facility] Routine wound cultureOrdered By: Alex Ovalles on 05-14-2023 Bacteria identified Cx Nom (Wound) No growth aerobically. [facility] Staphylococcus aureus DNA de tection by probe and target amplification methodOrdered By: Alex Ovalles on 05-14-2023 S. aureus DNA AKIL+probe Ql (Unsp spec) Negative Negative [facility] Absolute lymphocyte countOrd ered By: Alex Ovalles on 05-02-2023 Lymphocytes Auto (Unsp spec) [#/Vol] 2.25 10*3/uL 0.83-4.51 [facility] Basophil percentageOrdered B y: Alex Ovalles on 05-02-2023 Basophils/100 WBC (Bld) 0.4 % 0-1 [facility] Bilirubin [Mass/Vol] 0.50 mg/dL 0.20-1.00 [facility] Comment on above: For patients on eltr ombopag therapy, use of Dimension [place] TBIL is not recommended. Chloride [Moles/Vol] 104 mmol/L 98-107 [facility] Eosinophils/100 WBC (Bld) 0.7 % 0-5 [facility] Glucose [Mass/Vol] 103 mg/dL 74-106 [facility] Comment on above: Fasting Glucose resu lt from 100 to 125 mg/dL suggests IMPAIRED HOMEOSTASIS per A.D.A. criteria. Neutrophils (Bld) [#/Vol] 6.5 10*3/uL 2.0-7.7 [facility] Neutrophils/100 WBC (Bld) 68.9 % 47-70 [facility] Potassium [Moles/Vol] 3.8 mmol/L 3.5-5.1 [facility] Protein [Mass/Vol] 7.2 g/dL 6.4-8.2 [facility] Sodium [Moles/Vol] 138 mmol/L 136-145 [facility] WBC (Bld) [#/Vol] 9.4 10*3/uL 4.4-11.0 [facility] Blood erythrocytes count (nu mber/volume)Ordered By: Alex Ovalles on 05-02-2023 RBC (Bld) [#/Vol] 4.25 10*6/uL 4.2-5.4 [facility] Blood hemoglobin measurement (mass/volume)Ordered By: Alex Ovalles on 05-02-2023 Hemoglobin (Bld) [Mass/Vol] 13.5 g/dL 12.0-15.0 [facility] Blood lymphocytes/100 leukoc ytesOrdered By: Alex Ovalles on 05-02-2023 Lymphocytes/100 WBC (Bld) 23.9 % 19-41 [facility] Blood monocytes/100 leukocyt esOrdered By: Alex Ovalles on 05-02-2023 Monocytes/100 WBC (Bld) 5.6 % 0-10 [facility] Blood platelet mean volumeOr dered By: Alex Ovalles on 05-02-2023 Platelet mean volume (Bld) [Entitic vol] 9.8 fL 6.2-12.0 [facility] Culture, urineOrdered By: Harshal Ovalles on 05-02-2023 Bacteria identified Cx Nom (U) Culture exhibits no growth. [facility] Determination of erythrocyte mean corpuscular volume (MCV)Ordered By: Alex Ovalles on 05-02-2023 MCV (RBC) [Entitic vol] 96.0 fL 81-99 [facility] Hematocrit Auto (Bld) [Volum e fraction]Ordered By: Alex Ovalles on 05-02-2023 Hematocrit (Bld) [Volume fraction] 40.8 % 37-47 [facility] Laboratory - Chemistry and C hemistry - challengeOrdered By: Alex Ovalles on 05-02-2023 ALP [Catalytic activity/Vol] 58 U/L 45-117 [facility] ALT [Catalytic activity/Vol] 22 U/L 13-56 [facility] CO2 [Moles/Vol] 27.0 mmol/L 21.0-32.0 [facility] Globulin (S) [Mass/Vol] 3.6 g/dL 2.2-4.2 [facility] Urea nitrogen/Creatinine [Mass ratio] 19.6 mg/mg 10-20 [facility] Laboratory - Hematology and Cell countsOrdered By: Alex Ovalles on 05-02-2023 Erythrocyte distribution width (RBC) [Entitic vol] 46.5 fL 35.1-43.9 [facility] Erythrocyte distribution width (RBC) [Ratio] 13.2 % 11.6-14.6 [facility] Immature granulocytes/100 WBC (Bld) 0.500 % 0.0-0.9 [facility] Comment on above: IG% - Immature Granu locytes (promyelocytes, myelocytes and metamyelocytes) > 1% indicates that a LEFT SHIFT is Present. MCH (RBC) [Entitic mass] 31.8 pg 27.0-32.0 [facility] Nucleated RBC/100 WBC (Bld) [Ratio] 0 % 0-5 [facility] MCHC Auto (RBC) [Mass/Vol]Or dered By: Alex Ovalles on 05-02-2023 MCHC (RBC) [Mass/Vol] 33.1 g/dL 32-36 [facility] No Panel InformationOrdered By: Alex Ovalles on 05-02-2023 Estimated GFR (MDRD) Amer 154 mL/min >60 [facility] Comment on above: GFR Calc Estimated GFR (MDRD) Non-Af Amer 127 mL/min >60 [facility] Comment on above: Non- GFR Calc Hepatitis C Antibody Non-Reactive Nonreactive [facility] Comment on above: Non Reactive: < 0.8 Equivocal: >/= 0.8 to < 1.0 Reactive: >/= 1.0The CDC recommends that a reactive/equivocal HCV antibody result be followed up by the HCV Nucleic Acid Amplificationtest (812521) Thyroid Stimulating Hormone (TSH) 0.86 uIU/mL 0.358-3.74 [facility] Vitamin D 25-Hydroxy 47.0 ng/mL [facility] Comment on above: Vitamin D 25(OH) Sta tus Range Deficiency <20 ng/mL (50nmol/L) Insufficiency 20 - 30 ng/mL (50 - 75 nmol/L) Sufficiency 30 - 100 ng/mL (75 - 250 nmol/L) Toxicity >100 ng/mL (>250 nmol/L) Platelets bldOrdered By: Alex Ovalles on 05-02-2023 Platelets (Bld) [#/Vol] 310 10*3/uL 150-450 [facility] Serum or plasma albumin allen urement (mass/volume)Ordered By: Alex Ovalles on 05-02-2023 Albumin [Mass/Vol] 3.6 g/dL 3.2-5.0 [facility] Serum or plasma albumin/glob ulin mass ratioOrdered By: Alex Ovalles on 05-02-2023 Albumin/Globulin [Mass ratio] 1.0 {ratio} 0.9-2.4 [facility] Serum or plasma calcium allen urement (mass/volume)Ordered By: Alex Ovalles on 05-02-2023 Calcium [Mass/Vol] 9.1 mg/dL 8.5-10.1 [facility] Serum or plasma creatinine m easurement (mass/volume)Ordered By: Alex Ovalles on 05-02-2023 Creatinine [Mass/Vol] 0.51 mg/dL 0.55-1.02 [facility] Comment on above: The validity of the calculated GFR & GFRAA in patients over 70 years has not been determined. Clinical correlation is essential. Serum or plasma urea nitroge n measurement (mass/volume)Ordered By: Alex Ovalles on 05-02-2023 Urea nitrogen [Mass/Vol] 10 mg/dL 7-18 [facility] Thin prep Papanicolaou smear with manual screeningOrdered By: Alex Ovalles on 05-02-2023 Thin prep Papanicolaou smear with manual screening 14 U/L 15-37 [facility] Thin prep Papanicolaou smear with manual screening 7 5-15 [facility] Absolute lymphocyte countOrd ered By: Ramón Ha on 03-18-2023 Lymphocytes Auto (Unsp spec) [#/Vol] 1.71 10*3/uL 0.83-4.51 [facility] Basophil percentageOrdered B y: Ramón Ha on 03-18-2023 Basophils/100 WBC (Bld) 0.3 % 0-1 [facility] Chloride [Moles/Vol] 108 mmol/L 98-107 [facility] Eosinophils/100 WBC (Bld) 1.3 % 0-5 [facility] Glucose [Mass/Vol] 112 mg/dL 74-106 [facility] Comment on above: Fasting Glucose resu lt from 100 to 125 mg/dL suggests IMPAIRED HOMEOSTASIS per A.D.A. criteria. Neutrophils (Bld) [#/Vol] 9.2 10*3/uL 2.0-7.7 [facility] Neutrophils/100 WBC (Bld) 76.0 % 47-70 [facility] Potassium [Moles/Vol] 3.6 mmol/L 3.5-5.1 [facility] Sodium [Moles/Vol] 141 mmol/L 136-145 [facility] WBC (Bld) [#/Vol] 12.1 10*3/uL 4.4-11.0 [facility] Basophil percentage >100 SEEN /hpf 0-5 [facility] Bilirubin Test strip Ql (U)O rdered By: Ramón Ha on 03-18-2023 Bilirubin Ql (U) Negative Negative [facility] Blood erythrocytes count (nu mber/volume)Ordered By: Ramón Ha on 03-18-2023 RBC (Bld) [#/Vol] 3.89 10*6/uL 4.2-5.4 [facility] Blood hemoglobin measurement (mass/volume)Ordered By: Ramón Ha on 03-18-2023 Hemoglobin (Bld) [Mass/Vol] 12.5 g/dL 12.0-15.0 [facility] Blood lymphocytes/100 leukoc ytesOrdered By: Ramón Ha on 03-18-2023 Lymphocytes/100 WBC (Bld) 14.1 % 19-41 [facility] Blood monocytes/100 leukocyt esOrdered By: Ramón Ha on 03-18-2023 Monocytes/100 WBC (Bld) 7.6 % 0-10 [facility] Blood platelet mean volumeOr dered By: Ramón Ha on 03-18-2023 Platelet mean volume (Bld) [Entitic vol] 9.9 fL 6.2-12.0 [facility] Culture, urineOrdered By: Do saroj Ha on 03-18-2023 Bacteria identified Cx Nom (U) Escherichia coli [facility] Determination of erythrocyte mean corpuscular volume (MCV)Ordered By: Ramón Ha on 03-18-2023 MCV (RBC) [Entitic vol] 96.7 fL 81-99 [facility] Hematocrit Auto (Bld) [Volum e fraction]Ordered By: Ramón Ha on 03-18-2023 Hematocrit (Bld) [Volume fraction] 37.6 % 37-47 [facility] Ketones Test strip Ql (U)Ord ered By: Ramón Ha on 03-18-2023 Ketones Ql (U) Negative Negative [facility] Laboratory - Chemistry and C hemistry - challengeOrdered By: Ramón Ha on 03-18-2023 CO2 [Moles/Vol] 27.0 mmol/L 21.0-32.0 [facility] Urea nitrogen/Creatinine [Mass ratio] 16.9 mg/mg 10-20 [facility] Laboratory - Hematology and Cell countsOrdered By: Ramón Ha on 03-18-2023 Erythrocyte distribution width (RBC) [Entitic vol] 47.9 fL 35.1-43.9 [facility] Erythrocyte distribution width (RBC) [Ratio] 13.3 % 11.6-14.6 [facility] Immature granulocytes/100 WBC (Bld) 0.700 % 0.0-0.9 [facility] Comment on above: IG% - Immature Granu locytes (promyelocytes, myelocytes and metamyelocytes) > 1% indicates that a LEFT SHIFT is Present. MCH (RBC) [Entitic mass] 32.1 pg 27.0-32.0 [facility] Nucleated RBC/100 WBC (Bld) [Ratio] 0 % 0-5 [facility] MCHC Auto (RBC) [Mass/Vol]Or dered By: Ramón Ha on 03-18-2023 MCHC (RBC) [Mass/Vol] 33.2 g/dL 32-36 [facility] Mucus LM Ql (Urine sed)Order ed By: Ramón Ha on 03-18-2023 Mucus Ql (Urine sed) 0 SEEN /hpf [facility] Nitrite Test strip Ql (U)Ord ered By: Ramón Ha on 03-18-2023 Nitrite Ql (U) Negative Negative [facility] No Panel InformationOrdered By: Ramón Ha on 03-18-2023 Estimated Creatinine Clearance Calc 43.18 ml/min [facility] Estimated GFR (MDRD) Amer 147 mL/min >60 [facility] Comment on above: GFR Calc Estimated GFR (MDRD) Non-Af Amer 121 mL/min >60 [facility] Comment on above: Non- GFR Calc Platelets bldOrdered By: Rubens Ha on 03-18-2023 Platelets (Bld) [#/Vol] 271 10*3/uL 150-450 [facility] Protein Test strip Ql (U)Ord ered By: Ramón Ha on 03-18-2023 Protein Ql (U) 30 mg/dl Negative [facility] [facility] Serum or plasma calcium allen urement (mass/volume)Ordered By: Ramón Ha on 03-18-2023 Calcium [Mass/Vol] 8.7 mg/dL 8.5-10.1 [facility] Serum or plasma creatinine m easurement (mass/volume)Ordered By: Ramón Ha on 03-18-2023 Creatinine [Mass/Vol] 0.53 mg/dL 0.55-1.02 [facility] Comment on above: The validity of the calculated GFR & GFRAA in patients over 70 years has not been determined. Clinical correlation is essential. Serum or plasma urea nitroge n measurement (mass/volume)Ordered By: Ramón Ha on 03-18-2023 Urea nitrogen [Mass/Vol] 9 mg/dL 7-18 [facility] Squamous epithelial cells de tection in urine sediment by light microscopyOrdered By: Ramón Ha on 03-18-2023 Epithelial cells.squamous LM Ql (Urine sed) 0 SEEN /hpf 5-10 [facility] Thin prep Papanicolaou smear with manual screeningOrdered By: Ramón Ha on 03-18-2023 Thin prep Papanicolaou smear with manual screening 6 5-15 [facility] Urine blood detectionOrdered By: Ramón Ha on 03-18-2023 RBC Ql (U) 250 /ul Negative [facility] RBC Ql (U) 5-10 SEEN /hpf 0-5 [facility] Urine clarityOrdered By: Rubens Ha on 03-18-2023 Clarity (U) Cloudy Clear [facility] Urine color determinationOrd ered By: Ramón Ha on 03-18-2023 Color (U) Yellow Yellow [facility] Urine glucose detectionOrder ed By: Ramón Ha on 03-18-2023 Glucose Ql (U) Normal mg/dl Normal [facility] Urine leukocyte esterase det ection by dipstickOrdered By: Ramón Ha on 03-18-2023 Leukocyte esterase Test strip Ql (U) 500 /ul Negative [facility] Urine pHOrdered By: Ramón saavedra on 03-18-2023 pH (U) 6.0 [pH] 5.0 - 8.0 [facility] Urine sediment bacteria coun t by microscopy (number/high power field)Ordered By: Ramón Ha on 03-18-2023 Bacteria LM.HPF (Urine sed) [#/Area] 1 /[HPF] None Seen [facility] Urine specific gravity measu rementOrdered By: Ramón Ha on 03-18-2023 Specific gravity (U) [Rel density] 1.015 1.002-1.030 [facility] Urobilinogen Auto test strip Ql (U)Ordered By: Ramón Ha on 03-18-2023 Urobilinogen Ql (U) Normal mg/dl Normal [facility] Absolute lymphocyte countOrd ered By: Corie Cadet on 02-26-2023 Lymphocytes Auto (Unsp spec) [#/Vol] 2.19 10*3/uL 0.83-4.51 [facility] Basophil percentageOrdered B y: Corie Cady on 02-26-2023 Basophils/100 WBC (Bld) 0.4 % 0-1 [facility] Bilirubin [Mass/Vol] 0.50 mg/dL 0.20-1.00 [facility] Comment on above: For patients on eltr ombopag therapy, use of Dimension [place] TBIL is not recommended. Chloride [Moles/Vol] 105 mmol/L 98-107 [facility] Cholesterol [Mass/Vol] 195 mg/dL <200 [facility] Comment on above: <200 mg/dL Desirable 200-240 mg/dL Borderline >240 mg/dL High Risk Eosinophils/100 WBC (Bld) 2.7 % 0-5 [facility] Glucose [Mass/Vol] 99 mg/dL 74-106 [facility] Neutrophils (Bld) [#/Vol] 5.9 10*3/uL 2.0-7.7 [facility] Neutrophils/100 WBC (Bld) 65.0 % 47-70 [facility] Potassium [Moles/Vol] 3.8 mmol/L 3.5-5.1 [facility] Protein [Mass/Vol] 6.9 g/dL 6.4-8.2 [facility] Sodium [Moles/Vol] 140 mmol/L 136-145 [facility] Triglyceride [Mass/Vol] 78 mg/dL <199 [facility] Comment on above: The drugs N-Acetylcy steine and Metamizole may falsely depress this assay.Serum Triglycerides Reference Interval Normal <150 mg/dL Borderline high 150 - 199 mg/dL High 200 - 499 mg/dL Very High > or = 500 mg/dL WBC (Bld) [#/Vol] 9.0 10*3/uL 4.4-11.0 [facility] Blood erythrocytes count (nu mber/volume)Ordered By: Corie Cadet on 02-26-2023 RBC (Bld) [#/Vol] 4.24 10*6/uL 4.2-5.4 [facility] Blood hemoglobin measurement (mass/volume)Ordered By: Corie Cadet on 02-26-2023 Hemoglobin (Bld) [Mass/Vol] 13.2 g/dL 12.0-15.0 [facility] Blood lymphocytes/100 leukoc ytesOrdered By: Corie Cadet on 02-26-2023 Lymphocytes/100 WBC (Bld) 24.4 % 19-41 [facility] Blood monocytes/100 leukocyt esOrdered By: Corie Cadet on 02-26-2023 Monocytes/100 WBC (Bld) 6.8 % 0-10 [facility] Blood platelet mean volumeOr dered By: Corie Cadet on 02-26-2023 Platelet mean volume (Bld) [Entitic vol] 10.4 fL 6.2-12.0 [facility] Determination of erythrocyte mean corpuscular volume (MCV)Ordered By: Corie Cadet on 02-26-2023 MCV (RBC) [Entitic vol] 96.7 fL 81-99 [facility] Hematocrit Auto (Bld) [Volum e fraction]Ordered By: Corie Cadet on 02-26-2023 Hematocrit (Bld) [Volume fraction] 41.0 % 37-47 [facility] Laboratory - Chemistry and C hemistry - challengeOrdered By: Corie Cadet on 02-26-2023 ALP [Catalytic activity/Vol] 71 U/L 45-117 [facility] ALT [Catalytic activity/Vol] 21 U/L 13-56 [facility] CO2 [Moles/Vol] 30.0 mmol/L 21.0-32.0 [facility] Globulin (S) [Mass/Vol] 3.6 g/dL 2.2-4.2 [facility] Magnesium [Mass/Vol] 2.4 mg/dL 1.6-2.6 [facility] Urea nitrogen/Creatinine [Mass ratio] 29.4 mg/mg 10-20 [facility] Laboratory - Hematology and Cell countsOrdered By: Corie Cadet on 02-26-2023 Erythrocyte distribution width (RBC) [Entitic vol] 46.4 fL 35.1-43.9 [facility] Erythrocyte distribution width (RBC) [Ratio] 13.1 % 11.6-14.6 [facility] Immature granulocytes/100 WBC (Bld) 0.700 % 0.0-0.9 [facility] Comment on above: IG% - Immature Granu locytes (promyelocytes, myelocytes and metamyelocytes) > 1% indicates that a LEFT SHIFT is Present. MCH (RBC) [Entitic mass] 31.1 pg 27.0-32.0 [facility] Nucleated RBC/100 WBC (Bld) [Ratio] 0 % 0-5 [facility] MCHC Auto (RBC) [Mass/Vol]Or dered By: Corie Cadet on 02-26-2023 MCHC (RBC) [Mass/Vol] 32.2 g/dL 32-36 [facility] No Panel InformationOrdered By: Corie Cadet on 02-26-2023 Estimated GFR (MDRD) Amer 144 mL/min >60 [facility] Comment on above: GFR Calc Estimated GFR (MDRD) Non-Af Amer 119 mL/min >60 [facility] Comment on above: Non- GFR Calc Thyroid Stimulating Hormone (TSH) 2.32 uIU/mL 0.358-3.74 [facility] Vitamin D 25-Hydroxy 48.3 ng/mL [facility] Comment on above: Vitamin D 25(OH) Sta tus Range Deficiency <20 ng/mL (50nmol/L) Insufficiency 20 - 30 ng/mL (50 - 75 nmol/L) Sufficiency 30 - 100 ng/mL (75 - 250 nmol/L) Toxicity >100 ng/mL (>250 nmol/L) Platelets bldOrdered By: Keyanna Cadet on 02-26-2023 Platelets (Bld) [#/Vol] 247 10*3/uL 150-450 [facility] Serum or plasma albumin allen urement (mass/volume)Ordered By: Corie Cadet on 02-26-2023 Albumin [Mass/Vol] 3.3 g/dL 3.2-5.0 [facility] Serum or plasma albumin/glob ulin mass ratioOrdered By: Corie Cadet on 02-26-2023 Albumin/Globulin [Mass ratio] 0.9 {ratio} 0.9-2.4 [facility] Serum or plasma calcium allen urement (mass/volume)Ordered By: Corie Cadet on 02-26-2023 Calcium [Mass/Vol] 9.4 mg/dL 8.5-10.1 [facility] Serum or plasma cholesterol in HDL measurement (mass/volume)Ordered By: Corie Cadet on 02-26-2023 Cholesterol in HDL [Mass/Vol] 56 mg/dL >40 [facility] Comment on above: The drugs N-Acetylcy steine and Metamizole may falsely depress this assay. Reference Range HDL <40 mg/dL Low HDL Cholesterol HDL >or= 60 mg/dL High HDL Cholesterol Serum or plasma cholesterol in VLDL measurement (mass/volume)Ordered By: Corie Cadet on 02-26-2023 Cholesterol in VLDL [Mass/Vol] 16 mg/dL 5-40 [facility] Serum or plasma creatinine m easurement (mass/volume)Ordered By: Corie Cadet on 02-26-2023 Creatinine [Mass/Vol] 0.54 mg/dL 0.55-1.02 [facility] Comment on above: The validity of the calculated GFR & GFRAA in patients over 70 years has not been determined. Clinical correlation is essential. Serum or plasma ferritin wendy surement (mass/volume)Ordered By: Corie Cadet on 02-26-2023 Ferritin [Mass/Vol] 90 ng/mL 8-252 [facility] Serum or plasma low density lipoprotein (LDL) cholesterol measurement (mass/volume)Ordered By: Coire Cadet on 02-26-2023 Cholesterol in LDL [Mass/Vol] 123 mg/dL 0-130 [facility] Serum or plasma urea nitroge n measurement (mass/volume)Ordered By: Corie Cadet on 02-26-2023 Urea nitrogen [Mass/Vol] 16 mg/dL 7-18 [facility] Thin prep Papanicolaou smear with manual screeningOrdered By: Corie Cadet on 02-26-2023 Thin prep Papanicolaou smear with manual screening 11 U/L 15-37 [facility] Thin prep Papanicolaou smear with manual screening 5 5-15 [facility] BRANDON SCREENING W TOMOon 12-15 [facility] Basophil percentageOrdered B y: JYOTI CABRALES on 11-17-2022 Bilirubin [Mass/Vol] 0.40 mg/dL 0.20-1.00 [facility] Comment on above: For patients on eltr ombopag therapy, use of Dimension [place] TBIL is not recommended. Protein [Mass/Vol] 7.4 g/dL 6.4-8.2 [facility] Direct bilirubinOrdered By: JYOTI CABRALES on 11-17-2022 Bilirubin.direct [Mass/Vol] 0.10 mg/dL 0.00-0.30 [facility] Laboratory - Chemistry and C hemistry - challengeOrdered By: JYOTI CABRALES on 11-17-2022 ALP [Catalytic activity/Vol] 88 U/L 45-117 [facility] ALT [Catalytic activity/Vol] 61 U/L 13-56 [facility] Globulin (S) [Mass/Vol] 3.6 g/dL 2.2-4.2 [facility] Serum or plasma albumin allen urement (mass/volume)Ordered By: JYOTI CABRALES on 11-17-2022 Albumin [Mass/Vol] 3.8 g/dL 3.2-5.0 [facility] Thin prep Papanicolaou smear with manual screeningOrdered By: JYOTI CABRALES on 11-17-2022 Thin prep Papanicolaou smear with manual screening 26 U/L 15-37 [facility] Basophil percentageOrdered B y: Hever Clemente on 07-31-2022 Chloride [Moles/Vol] 109 mmol/L 98-107 [facility] Glucose [Mass/Vol] 110 mg/dL 74-106 [facility] Comment on above: Fasting Glucose resu lt from 100 to 125 mg/dL suggests IMPAIRED HOMEOSTASIS per A.D.A. criteria. Potassium [Moles/Vol] 4.0 mmol/L 3.5-5.1 [facility] Sodium [Moles/Vol] 142 mmol/L 136-145 [facility] WBC (Bld) [#/Vol] 6.3 10*3/uL 4.4-11.0 [facility] Blood erythrocytes count (nu mber/volume)Ordered By: Hever Clemente on 07-31-2022 RBC (Bld) [#/Vol] 4.00 10*6/uL 4.2-5.4 [facility] Blood hemoglobin measurement (mass/volume)Ordered By: Hever Clemente on 07-31-2022 Hemoglobin (Bld) [Mass/Vol] 12.6 g/dL 12.0-15.0 [facility] Blood platelet mean volumeOr dered By: Hever Clemente on 07-31-2022 Platelet mean volume (Bld) [Entitic vol] 10.3 fL 6.2-12.0 [facility] Determination of erythrocyte mean corpuscular volume (MCV)Ordered By: Hever Clemente on 07-31-2022 MCV (RBC) [Entitic vol] 96.8 fL 81-99 [facility] Hematocrit Auto (Bld) [Volum e fraction]Ordered By: Hever Clemente on 07-31-2022 Hematocrit (Bld) [Volume fraction] 38.7 % 37-47 [facility] Laboratory - Chemistry and C hemistry - challengeOrdered By: Hever Clemente on 07-31-2022 CO2 [Moles/Vol] 28.0 mmol/L 21.0-32.0 [facility] Urea nitrogen/Creatinine [Mass ratio] 19.6 mg/mg 10-20 [facility] Laboratory - Hematology and Cell countsOrdered By: Hever Clemente on 07-31-2022 Erythrocyte distribution width (RBC) [Entitic vol] 45.5 fL 35.1-43.9 [facility] Erythrocyte distribution width (RBC) [Ratio] 12.7 % 11.6-14.6 [facility] MCH (RBC) [Entitic mass] 31.5 pg 27.0-32.0 [facility] MCHC Auto (RBC) [Mass/Vol]Or dered By: Hever Clemente on 07-31-2022 MCHC (RBC) [Mass/Vol] 32.6 g/dL 32-36 [facility] No Panel InformationOrdered By: Hever Clemente on 07-31-2022 Estimated GFR (MDRD) Amer 155 mL/min >60 [facility] Comment on above: GFR Calc Estimated GFR (MDRD) Non-Af Amer 128 mL/min >60 [facility] Comment on above: Non- GFR Calc Platelets bldOrdered By: Jose Clemente on 07-31-2022 Platelets (Bld) [#/Vol] 262 10*3/uL 150-450 [facility] Serum or plasma calcium allen urement (mass/volume)Ordered By: Hever Clemente on 07-31-2022 Calcium [Mass/Vol] 9.0 mg/dL 8.5-10.1 [facility] Serum or plasma creatinine m easurement (mass/volume)Ordered By: Hever Clemente on 07-31-2022 Creatinine [Mass/Vol] 0.51 mg/dL 0.55-1.02 [facility] Comment on above: The validity of the calculated GFR & GFRAA in patients over 70 years has not been determined. Clinical correlation is essential. Serum or plasma urea nitroge n measurement (mass/volume)Ordered By: Hever Clemente on 07-31-2022 Urea nitrogen [Mass/Vol] 10 mg/dL 7-18 [facility] Thin prep Papanicolaou smear with manual screeningOrdered By: Hever Clemente on 07-31-2022 Thin prep Papanicolaou smear with manual screening 5 5-15 [facility] Absolute lymphocyte counton 05-08-2022 Lymphocytes Auto (Unsp spec) [#/Vol] 2.02 10*3/uL 0.83-4.51 [facility] Work Phone: Basophil percentageon 2021 Basophils/100 WBC (Bld) 0.6 % 0-1 [facility] Work Phone: Bilirubin [Mass/Vol] 0.50 mg/dL 0.20-1.00 [facility] Work Phone: Comment on above: For patients on eltr ombopag therapy, use of Dimension [place] TBIL is not recommended. Chloride [Moles/Vol] 106 mmol/L 98-107 [facility] Work Phone: Eosinophils/100 WBC (Bld) 1.8 % 0-5 [facility] Work Phone: Glucose [Mass/Vol] 106 mg/dL 74-106 [facility] Work Phone: Comment on above: Fasting Glucose resu lt from 100 to 125 mg/dL suggests IMPAIRED HOMEOSTASIS per A.D.A. criteria. Neutrophils (Bld) [#/Vol] 4.1 10*3/uL 2.0-7.7 [facility] Work Phone: Neutrophils/100 WBC (Bld) 60.8 % 47-70 [facility] Work Phone: Potassium [Moles/Vol] 4.1 mmol/L 3.5-5.1 [facility] Work Phone: Protein [Mass/Vol] 7.0 g/dL 6.4-8.2 [facility] Work Phone: Sodium [Moles/Vol] 140 mmol/L 136-145 [facility] Work Phone: WBC (Bld) [#/Vol] 6.7 10*3/uL 4.4-11.0 [facility] Work Phone: Blood erythrocytes count (nu mber/volume)on 05-08-2022 RBC (Bld) [#/Vol] 4.23 10*6/uL 4.2-5.4 [facility]: Blood hemoglobin measurement (mass/volume)on 05-08-2022 Hemoglobin (Bld) [Mass/Vol] 13.2 g/dL 12.0-15.0 [facility] Work Phone: Blood lymphocytes/100 leukoc yteson 05-08-2022 Lymphocytes/100 WBC (Bld) 30.0 % 19-41 [facility] Work Phone: Blood monocytes/100 leukocyt eson 05-08-2022 Monocytes/100 WBC (Bld) 6.2 % 0-10 [facility] Work Phone: Blood platelet mean volumeon 05-08-2022 Platelet mean volume (Bld) [Entitic vol] 10.0 fL 6.2-12.0 [facility] Work Phone: Determination of erythrocyte mean corpuscular volume (MCV)on 05-08-2022 MCV (RBC) [Entitic vol] 96.7 fL 81-99 [facility] Work Phone: Hematocrit Auto (Bld) [Volum e fraction]on 05-08-2022 Hematocrit (Bld) [Volume fraction] 40.9 % 37-47 [facility] Work Phone: Laboratory - Chemistry and C hemistry - challengeon 05-08-2022 ALP [Catalytic activity/Vol] 63 U/L 45-117 [facility] Work Phone: ALT [Catalytic activity/Vol] 24 U/L 13-56 [facility] Work Phone: CO2 [Moles/Vol] 29.0 mmol/L 21.0-32.0 [facility] Work Phone: Globulin (S) [Mass/Vol] 3.7 g/dL 2.2-4.2 [facility] Work Phone: Lipase [Catalytic activity/Vol] 93 U/L 73-393 [facility] Work Phone: Urea nitrogen/Creatinine [Mass ratio] 25.8 mg/mg 10-20 [facility] Work Phone: Laboratory - Hematology and Cell countson 05-08-2022 Erythrocyte distribution width (RBC) [Entitic vol] 44.4 fL 35.1-43.9 [facility] Work Phone: Erythrocyte distribution width (RBC) [Ratio] 12.5 % 11.6-14.6 [facility] Work Phone: Immature granulocytes/100 WBC (Bld) 0.600 % 0.0-0.9 [facility] Work Phone: Comment on above: IG% - Immature Granu locytes (promyelocytes, myelocytes and metamyelocytes) > 1% indicates that a LEFT SHIFT is Present. MCH (RBC) [Entitic mass] 31.2 pg 27.0-32.0 [facility] Work Phone: Nucleated RBC/100 WBC (Bld) [Ratio] 0 % 0-5 [facility] Work Phone: MCHC Auto (RBC) [Mass/Vol]on 05-08-2022 MCHC (RBC) [Mass/Vol] 32.3 g/dL 32-36 [facility] Work Phone: No Panel Informationon 05-08 Estimated GFR (MDRD) Amer 123 mL/min >60 [facility] Work Phone: Comment on above: GFR Calc Estimated GFR (MDRD) Non-Af Amer 102 mL/min >60 [facility] Work Phone: Comment on above: Non- GFR Calc Thyroid Stimulating Hormone (TSH) 1.52 uIU/mL 0.358-3.74 [facility] Work Phone: Platelets bldon 05-08-2022 Platelets (Bld) [#/Vol] 282 10*3/uL 150-450 [facility] Work Phone: Serum or plasma albumin allen urement (mass/volume)on 05-08-2022 Albumin [Mass/Vol] 3.3 g/dL 3.2-5.0 [facility] Work Phone: Serum or plasma albumin/glob ulin mass ratioon 05-08-2022 Albumin/Globulin [Mass ratio] 0.9 {ratio} 0.9-2.4 [facility] Work Phone: Serum or plasma calcium allen urement (mass/volume)on 05-08-2022 Calcium [Mass/Vol] 8.6 mg/dL 8.5-10.1 [facility] Work Phone: Serum or plasma creatinine m easurement (mass/volume)on 05-08-2022 Creatinine [Mass/Vol] 0.62 mg/dL 0.55-1.02 [facility] Work Phone: Comment on above: The validity of the calculated GFR & GFRAA in patients over 70 years has not been determined. Clinical correlation is essential. Serum or plasma urea nitroge n measurement (mass/volume)on 05-08-2022 Urea nitrogen [Mass/Vol] 16 mg/dL 7-18 [facility] Work Phone: Thin prep Papanicolaou smear with manual screeningon 05-08-2022 Thin prep Papanicolaou smear with manual screening 16 U/L 15-37 [facility] Work Phone: Thin prep Papanicolaou smear with manual screening 5 5-15 [facility] Work Phone: CALCIFIDIOL ([id number]) VIT D 25 Ordered By: Warehouse Supervisor on 03-04-2021 25-hydroxyvitamin D [Mass/Vol] 45.3 ng/mL Normal 30.0-100.0 [facility]; [facility] Work Phone: Comment on above: Vitamin D deficiency has been defined by the [place] ofMed[employer] and an Endocrine Society practice guideline as alevel of serum 25-OH vitamin D less than 20 ng/mL (1,2).The Endocrine Society went on to further define vitamin Dinsufficiency as a level between 21 and 29 ng/mL (2).1. IOM ([place] of [employer]). 2010. Dietary reference intakes for calcium and D. [place]: The National Academies Press.2. Hiram MF, Gayatri NC, Andre FAGAN, et al. Evaluation, treatment, and prevention of vitamin D deficiency: an Endocrine Society clinical practice guideline. JCEM. 2010; 96(7):1911-30. PATIENT WAS FASTINGP ERFORMED BY: [id number] [id number] [place] [id number] LIPID PANEL ([id number])Ordered B y: Warehouse Supervisor on 03-04-2021 Cholesterol [Mass/Vol] 200 mg/dL Abnormal 100-199 [facility]; [facility] Work Phone: Comment on above: PATIENT WAS FASTINGP ERFORMED BY: [employer] [id number] [place] [id number] Cholesterol in HDL [Mass/Vol] 61 mg/dL Normal [facility]; [facility] Work Phone: Comment on above: PATIENT WAS FASTINGP ERFORMED BY: [employer] [place] [id number] Triglyceride [Mass/Vol] 80 mg/dL Normal 0-149 [facility]; [facility] Work Phone: Comment on above: PATIENT WAS FASTINGP ERFORMED BY: LEANN LabMarcelino [id number] [facility] [place] [id number] LIPID PANEL ([id number]) 14 mg/dL Normal 5-40 [facility]; [facility] Work Phone: Comment on above: PATIENT WAS FASTINGP ERFORMED BY: LEANN LabColin [id number] [facility] [id number] LIPID PANEL ([id number]) 125 mg/dL Abnormal 0-99 [facility]; [facility] Work Phone: Comment on above: PATIENT WAS FASTINGP ERFORMED BY: LEANN Thomlin [id number] [facility] [id number] LIPID PANEL ([id number]) 2.0 {ratio} Normal 0.0-3.2 [facility]; [facility] Work Phone: Comment on above: LDL/HDL Ratio Men Wo men 1/2 Avg.Risk 1.0 1.5 Avg.Risk 3.6 3.2 2X Avg.Risk 6.2 5.0 3X Avg.Risk 8.0 6.1 PATIENT WAS FASTINGP ERFORMED BY: LEANN LabOmarlin [id number] [facility] [id number] METABOLIC PANEL, COMPREHENSI VE ([id number])Ordered By: Warehouse Supervisor on 03-04-2021 Albumin [Mass/Vol] 4.2 g/dL Normal 3.8-4.8 [facility]; [facility] Work Phone: Comment on above: PATIENT WAS FASTINGP ERFORMED BY: LEANN [facility] [id number] [facility] [place] [id number] Albumin/Globulin [Mass ratio] 1.8 {ratio} Normal 1.2-2.2 [facility]; [facility] Work Phone: Comment on above: PATIENT WAS FASTINGP ERFORMED BY: LEANN [facility] [id number] [facility] [id number] ALP [Catalytic activity/Vol] 85 U/L Normal 48-121 [facility]; [facility] Work Phone: Comment on above: PATIENT WAS FASTINGP ERFORMED BY: CB [facility] [id number] RoadD[address] [place] [id number] ALT [Catalytic activity/Vol] 26 U/L Normal 0-32 [facility]; [facility] Work Phone: Comment on above: PATIENT WAS FASTINGP ERFORMED BY: CB [facility] [id number] [address] RoadD[address] [place] [id number] AST [Catalytic activity/Vol] 28 U/L Normal 0-40 [facility]; [facility] Work Phone: Comment on above: PATIENT WAS FASTINGP ERFORMED BY: [facility] Frdwki5028 Carrillo RoadDublin [place] [id number] Bilirubin [Mass/Vol] 0.4 mg/dL Normal 0.0-1.2 [facility]; [facility] Work Phone: Comment on above: PATIENT WAS FASTINGP ERFORMED BY: [facility] Iuequp9177 Carrillo RoadDublin [place] [id number] Calcium [Mass/Vol] 9.3 mg/dL Normal 8.7-10.3 [facility] Internal Medicine; [facility] Work Phone: Comment on above: PATIENT WAS FASTINGP ERFORMED BY: [facility] Peordh2803 Carrillo RoadDublin [place] [id number] Chloride [Moles/Vol] 103 mmol/L Normal 96-106 [facility]; [facility] Work Phone: Comment on above: PATIENT WAS FASTINGP ERFORMED BY: CB [facility] Ciikiv9727 Carrillo RoadDublin [place] [id number] CO2 [Moles/Vol] 25 mmol/L Normal 20-29 [facility] Internal Medicine; [facility] Work Phone: Comment on above: PATIENT WAS FASTINGP ERFORMED BY: CB [facility] Alowrj0809 [address] RoadDublin [place] [id number] Creatinine [Mass/Vol] 0.60 mg/dL Normal 0.57-1.00 [facility] prehensive Internal Medicine; [facility] Work Phone: Comment on above: PATIENT WAS FASTINGP ERFORMED BY: [facility] Xlboqr3988 [facility] [id number] GFR/1.73 sq M.predicted among blacks CKD-EPI (S/P/Bld) [Vol rate/Area] 111 mL/min/1.73 Normal [facility]; [facility] Work Phone: Comment on above: [facility] currently reports eGFR in compliance with the current recommendations of the National Kidney Foundation. [facility] will update reporting as new guidelines are published from the NKF-ASN Task force. PATIENT WAS FASTINGP ERFORMED BY: [facility] Zotryi2284 [facility] [id number] GFR/1.73 sq M.predicted among non-blacks CKD-EPI (S/P/Bld) [Vol rate/Area] 96 mL/min/1.73 Normal [facility]; [facility] Work Phone: Comment on above: PATIENT WAS FASTINGP ERFORMED BY: [facility]6370 [facility] [id number] Globulin (S) [Mass/Vol] 2.4 g/dL Normal 1.5-4.5 [facility] Internal Medicine; [facility] Work Phone: Comment on above: PATIENT WAS FASTINGP ERFORMED BY: [facility]6370 [facility] [id number] Glucose [Mass/Vol] 93 mg/dL Normal 65-99 [facility] Internal Medicine; [facility] Work Phone: Comment on above: PATIENT WAS FASTINGP ERFORMED BY: [facility]6370 [facility] [id number] Potassium [Moles/Vol] 4.6 mmol/L Normal 3.5-5.2 [facility] prehensive Internal Medicine; [facility] Work Phone: Comment on above: PATIENT WAS FASTINGP ERFORMED BY: [facility]6370 [facility] [id number] Protein [Mass/Vol] 6.6 g/dL Normal 6.0-8.5 [facility] Internal Medicine; [facility] Work Phone: Comment on above: PATIENT WAS FASTINGP ERFORMED BY: [facility]6370 [facility] [id number] Sodium [Moles/Vol] 141 mmol/L Normal 134-144 [facility] Internal Medicine; [facility] Work Phone: Comment on above: PATIENT WAS FASTINGP ERFORMED BY: [facility]6370 [facility] [id number] Urea nitrogen [Mass/Vol] 11 mg/dL Normal 8-27 [facility]; [facility] Work Phone: Comment on above: PATIENT WAS FASTINGP ERFORMED BY: [facility]6370 [facility] [id number] Urea nitrogen/Creatinine [Mass ratio] 18 mg/mg Normal 12-28 [facility]; [facility] Work Phone: Comment on above: PATIENT WAS FASTINGP ERFORMED BY: [facility]6370 [facility] [id number] TSH ([id number])Ordered By: Veriente m Drying Machine Receiver on 03-04-2021 TSH Qn 1.800 {uIU/mL} Normal 0.450-4.500 [facility] Internal Medicine; [facility] Work Phone: Comment on above: PATIENT WAS FASTINGP ERFORMED BY: [facility]6370 [facility] [id number] 2018 Novel Coronavirus (COVI D-19), AKIL ([id number])Ordered By: Warehouse Supervisor on 07-01-20202018 Novel Coronavirus (COVID-19), AKIL ([id number]) Not Detected Normal [facility] Work Phone: Comment on above: This nucleic acid am plification test was developed and its performancecharacteristics determined by [employer]. Nucleic acidamplification tests include PCR and TMA. This test has not been FDAcleared or approved. This test has been authorized by FDA under anEmergency Use Authorization (EUA). This test is only authorized forthe duration of time the declaration that circumstances existjustifying the authorization of the emergency use of in vitrodiagnostic tests for detection of SARS-CoV-2 virus and/or diagnosisof COVID-19 infection under section 564(b)(1) of the Act, 21 U.S.C.360bbb-3(b) (1), unless the authorization is terminated or revokedsooner.When diagnostic testing is negative, the possibility of a falsenegative result should be considered in the context of a patient'srecent exposures and the presence of clinical signs and symptomsconsistent with COVID-19. An individual without symptoms of COVID-19and who is not shedding SARS-CoV-2 virus would expect to have anegative (not detected) result in this assay. PATIENT NOT FASTINGP ERFORMED BY: [facility] Ogbmogpdsa6075 [place]que[place] [id number] 2018 Novel Coronavirus (COVID-19), AKIL ([id number]) Not detected Normal [facility]; [facility] Work Phone: Comment on above: This nucleic acid am plification test was developed and its performancecharacteristics determined by [employer]. Nucleic acidamplification tests include PCR and TMA. This test has not been FDAcleared or approved. This test has been authorized by FDA under anEmergency Use Authorization (EUA). This test is only authorized forthe duration of time the declaration that circumstances existjustifying the authorization of the emergency use of in vitrodiagnostic tests for detection of SARS-CoV-2 virus and/or diagnosisof COVID-19 infection under section 564(b)(1) of the Act, 21 U.S.C.360bbb-3(b) (1), unless the authorization is terminated or revokedsooner.When diagnostic testing is negative, the possibility of a falsenegative result should be considered in the context of a patient'srecent exposures and the presence of clinical signs and symptomsconsistent with COVID-19. An individual without symptoms of COVID-19and who is not shedding SARS-CoV-2 virus would expect to have anegative (not detected) result in this assay. PATIENT NOT FASTINGP ERFORMED BY: [facility] Keqluetvzc39[address] [place] [id number] Rapid Flu (31937 x 2)Ordered By: Christina Sandhu on 11-03-2019 FLUAV Ag IA Ql (Throat) Neg a/b Normal [facility] Work Phone: Comment on above: Negative Rapid Strep Test, Office ([id number] [phone])Ordered By: Christina Sandhu on 11-03-2019 S. pyogenes Ag EIA Ql (Throat) Negative Normal [facility]; [facility] Work Phone: Comment on above: Negative S. pyogenes Ag IA Ql (Unsp spec) Negative Normal [facility] Work Phone: Comment on above: Negative THROAT CULTURE ([id number])Ordere d By: Warehouse Supervisor on 11-03-2019 Bacteria identified Respiratory culture Nom (Unsp spec) Final report Normal [facility] Work Phone: Comment on above: PATIENT NOT FASTINGP ERFORMED BY: YouHelpBollingoBlog [place] [id number] Information: SRC:TH Bacteria identified Respiratory culture Nom (Unsp spec) RRF Normal [facility] Work Phone: Comment on above: Routine respiratory may PATIENT NOT FASTINGP ERFORMED BY: [facility] [id number] Information: SRC:TH URINE BURKE CULTURE-IDENTIFICA [place] (07919)Ordered By: Warehouse Supervisor on 06-23-2019 Bacteria identified Cx Nom (U) Final report Normal [facility] Work Phone: Comment on above: PERFORMED BY: [facility] [id number] Information: SRC:UR Bacteria identified Cx Nom (U) MUG Normal [facility] Work Phone: Comment on above: Mixed urogenital lonny ra1,000 Colonies/mL PERFORMED BY: iFlipd RoadDublin [place] [id number] Information: SRC:UR Urinalysis, Office (54281)Or dered By: Christina Sandhu on 06-23-2019 Bilirubin Ql (U) Negative Normal Comprehe nsive Internal Medicine Work Phone: Bilirubin Ql (U) Negative Normal Comprehe nsive Internal Medicine; [facility] Work Phone: Glucose Test strip (U) [Mass/Vol] Negative Normal [facility] Work Phone: Glucose Test strip (U) [Mass/Vol] Negative Normal [facility]; [facility] Work Phone: Hemoglobin Ql (U) Negative Normal Compreh ensive Internal Medicine Work Phone: Hemoglobin Ql (U) Negative Normal Compreh ensive Internal Medicine; [facility] Work Phone: Ketones Ql (U) Negative Normal Comprehens [facility] Internal Medicine Work Phone: Ketones Ql (U) Negative Normal Comprehens [facility]; [facility] Work Phone: Leukocyte esterase Test strip Ql (U) Negative Normal [facility] Work Phone: Leukocyte esterase Test strip Ql (U) Negative Normal [facility]; [facility] Work Phone: Nitrite Ql (U) Negative Normal Comprehens [facility] Work Phone: Nitrite Ql (U) Negative Normal Comprehens [facility]; [facility] Work Phone: pH (U) 6 [pH] Abnormal [facility] Work Phone: Protein Ql (U) Negative Normal Comprehens [facility] Work Phone: Protein Ql (U) Negative Normal Comprehens [facility]; [facility] Work Phone: Specific gravity (U) [Rel density] 1.005 1 Normal [facility] Work Phone: Urobilinogen (24H U) [Mass/Time] Normal Normal [facility] Work Phone: CBC W/Diff, AutomatedOrdered By: Warehouse Supervisor on 09-05-2018 Absolute Neut 3.8 {X10_3/uL} Normal 2.0-7.7 Compreh ensive Internal Medicine Work Phone: Comment on above: [facility] [address] [place], [place], [phone] Basophils/100 WBC (Bld) 0.3 % Normal 0-1 [facility] Work Phone: Comment on above: [facility] [address]zni[address] [place], [place], [phone] Eosinophils/100 WBC (Bld) 1.8 % Normal 0-5 [facility] Work Phone: Comment on above: [facility] [address] [place], [place], [phone] Erythrocyte distribution width Ratio (RBC) 12.4 % Normal 11.6-14.6 [facility] Work Phone: Comment on above: [facility] [address] [place], [place], [phone] Hematocrit Volume Fraction (Bld) 37.5 % Normal 37-47 [facility] Work Phone: Comment on above: [facility] [address]tryxy[address] [place], [place], [phone] Hemoglobin mass conc (Bld) 12.4 g/dL Normal 12.0-15.0 [facility] Work Phone: Comment on above: [facility] [address] [place], [place], [phone] IM GRAN % 0.200 % Normal 0.0-0.9 [facility] Work Phone: Comment on above: IG% - Immature Granu locytes (promyelocytes, myelocytes andmetamyelocytes) > 1% indicates that a LEFT SHIFT is Present. [facility] [address] [place], [place], [phone] Lymphocytes #/vol (Bld) 1.69 {X10_3/ul} Normal 0.83-4.51 [facility] Work Phone: Comment on above: [facility] [address] [place], [address] Lymphocytes/100 WBC (Bld) 28.0 % Normal 19-41 [facility] Work Phone: Comment on above: [facility] [address] [place], [address] MCH Entitic mass (RBC) 31.2 pg Normal 27.0-32.0 [facility] Internal Medicine Work Phone: Comment on above: [facility] [address] [place], [address] MCHC mass conc (RBC) 33.1 {g/gl} Normal 32-36 [facility] Internal Medicine Work Phone: Comment on above: [facility] [address]ox[address] [place], [address] MCV Entitic volume (RBC) 94.5 fL Normal 81-99 [facility] Work Phone: Comment on above: [facility] [address] [place], [address] Monocytes/100 WBC (Bld) 7.1 % Normal 0-10 [facility] Work Phone: Comment on above: [facility] [address] [place], [address] Neutrophils/100 WBC (Bld) 62.6 % Normal 47-70 [facility] Work Phone: Comment on above: [facility] [address] [place], [address] Platelet mean volume Entitic volume (Bld) 11.0 fL Normal 6.2-12.0 [facility] Work Phone: Comment on above: [facility] [address]ud[address] [place], [place], [phone] Platelets #/vol (Bld) 253 10*3/uL Normal 150-450 Co mprehensive Internal Medicine Work Phone: Comment on above: [facility] [address] [place], [address] RBC #/vol (Bld) 3.97 {M/mm3} Abnormal 4.2-5.4 Compreh ensive Internal Medicine Work Phone: Comment on above: [facility] [address] [place], [address] RDW SD 42.0 fL Normal 35.1-43.9 [facility] Work Phone: Comment on above: [facility] [address] [place], [address] WBC #/vol (Bld) 6.0 10*3/uL Normal 4.4-11.0 Comprehe nsive Internal Medicine Work Phone: Comment on above: [facility] [address] [place], [address] DANDY (ANTINUCLEAR ANTIBODY) ( 86848)Ordered By: Warehouse Supervisor on 06-14-2018 Nuclear Ab Ql (S) Negative Normal Compreh ensive Internal Medicine Work Phone: Comment on above: PATIENT NOT FASTINGP ERFORMED BY: [employer] [facility] Uetmvd1845 [facility] [id number] BY: [address] [id number] Nuclear Ab Ql (S) Negative Normal Compreh ensive Internal Medicine; [facility] Work Phone: Comment on above: PATIENT NOT FASTINGP ERFORMED BY: [employer] [facility] Cwgzqd7470 [address] [facility] [id number] BY: Lab[address] [id number] ANCA-C (ANTI NEUTROPHIL CYTO PLASMIC ANTIBODY)Ordered By: Warehouse Supervisor on 06-14-2018 Myeloperoxidase Ab IA Qn (S) <9.0 Normal 0.0-9.0 [facility] Work Phone: Comment on above: PATIENT NOT FASTINGP ERFORMED BY: [employer] [id number] BY: [address] [id number] Neutrophil cytoplasmic Ab.classic IF titer (S) <1:20 Normal [facility] Work Phone: Comment on above: PATIENT NOT FASTINGP ERFORMED BY: [employer] [place] [address] [id number] BY: [address] [id number] Neutrophil cytoplasmic Ab.perinuclear IF titer (S) <1:20 Normal [facility] Work Phone: Comment on above: The presence of posi tive fluorescence exhibiting P-ANCA or C-ANCApatterns alone is not specific for the diagnosis of Arpit'sGranulomatosis (WG) or microscopic polyangiitis. Decisions abouttreatment should not be based solely on ANCA IFA results. TheInternational ANCA Group Consensus recommends follow up testing ofpositive sera with both IL-3 and MPO-ANCA enzyme immunoassays. Asmany as 5% serum samples are positive only by EIA.Ref. AM J Clin Pathol 1999;111:507-513. PATIENT NOT FASTINGP ERFORMED BY: PhotoSpotLandBacharach Institute for RehabilitationRiwugj5848 [facility] [id number] BY: [address] [id number] Neutrophil cytoplasmic Ab.perinuclear.atypica l IF titer (S) <1:20 Normal [facility] Work Phone: Comment on above: The atypical pANCA p attern has been observed in a significantpercentage of patients with ulcerative colitis, primary sclerosingcholangitis and autoimmune hepatitis. PATIENT NOT FASTINGP ERFORMED BY: CB [facility] Mcnezk3550 [address] [facility] [id number] BY: [address] [id number] Proteinase 3 Ab IA Qn (S) <3.5 Normal 0.0-3.5 [facility] Work Phone: Comment on above: PATIENT NOT FASTINGP ERFORMED BY: CB [facility] Imcrpa1975 [facility] [id number] BY: [address] [id number] C-Reactive Protein (20015)Or dered By: Warehouse Supervisor on 06-14-2018 CRP mass conc 2.8 mg/L Normal 0.0-4.9 Comprehensi ve Internal Medicine Work Phone: Comment on above: PATIENT NOT FASTINGP ERFORMED BY: [facility] Gtsinp0165 [facility] [id number] BY: [employer] [id number] Metabolic Panel, Comprehensi ve (64023)Ordered By: Warehouse Supervisor on 06-14-2018 Albumin mass conc 4.2 g/dL Normal 3.6-4.8 Compreh ensive Internal Medicine Work Phone: Comment on above: PATIENT NOT FASTINGP ERFORMED BY: [facility] Wttfrr7603 [facility] [id number] BY: [address] [id number] Albumin/Globulin mass ratio 1.6 {ratio} Normal 1.2-2.2 [facility] Work Phone: Comment on above: PATIENT NOT FASTINGP ERFORMED BY: [facility] Hglqzd4664 [address] [facility] [id number] BY: [address] [id number] ALP [Catalytic activity/Vol] 64 U/L Normal 39-117 [facility]; [facility] Work Phone: Comment on above: PATIENT NOT FASTINGP ERFORMED BY: CB [facility] Xlpicx7435 Carrillo RoadDublin [place] [id number] BY: [address] [id number] ALP enzyme act/vol 64 [iU]/L Normal 39-117 [facility] Internal Medicine Work Phone: Comment on above: PATIENT NOT FASTINGP ERFORMED BY: CB [facility] Blpdvt7822 Carrillo RoadDublin [place] [id number] BY: [address] [id number] ALT [Catalytic activity/Vol] 21 U/L Normal 0-32 [facility]; [facility] Work Phone: Comment on above: PATIENT NOT FASTINGP ERFORMED BY: CB [facility] Rthdvx2241 Carrillo RoadDublin [place] [id number] BY: [address] [id number] ALT enzyme act/vol 21 [iU]/L Normal 0-32 [facility] Internal Medicine Work Phone: Comment on above: PATIENT NOT FASTINGP ERFORMED BY: CB [facility] Owisqb5582 Carrillo RoadDublin [place] [id number] BY: [address] [id number] AST [Catalytic activity/Vol] 22 U/L Normal 0-40 [facility]; [facility] Internal Medicine Work Phone: Comment on above: PATIENT NOT FASTINGP ERFORMED BY: CB [facility] Jwyrkz6136 Carrillo RoadDublin [place] [id number] BY: [address] [id number] AST enzyme act/vol 22 [iU]/L Normal 0-40 [facility] Internal Medicine Work Phone: Comment on above: PATIENT NOT FASTINGP ERFORMED BY: CB [facility] Moujif3056 Carrillo RoadDublin [place] [id number] BY: BN [facility] Glfmnoogfq8048 [facility] [id number] Bilirubin mass conc 0.3 mg/dL Normal 0.0-1.2 Compr ehensive Internal Medicine Work Phone: Comment on above: PATIENT NOT FASTINGP ERFORMED BY: CB [facility] Aaxcoz7728 Carrillo RoadDublin [place] [id number] BY: BN [facility] [address] [id number] Calcium mass conc 9.7 mg/dL Normal 8.7-10.3 Compreh ensive Internal Medicine Work Phone: Comment on above: PATIENT NOT FASTINGP ERFORMED BY: CB [facility] Qjayja4612 Carrillo RoadDublin [place] [id number] BY: BN [facility] [address] [id number] Chloride molar conc 101 mmol/L Normal 96-106 Compr ehensive Internal Medicine Work Phone: Comment on above: PATIENT NOT FASTINGP ERFORMED BY: CB [facility] Ospnod9462 Carrillo RoadDublin [place] [id number] BY: [facility] [address] [id number] CO2 molar conc 26 mmol/L Normal 20-29 Comprehens [facility] Internal Medicine Work Phone: Comment on above: PATIENT NOT FASTINGP ERFORMED BY: CB [facility] Nydiga1549 Carrillo RoadDublin [place] [id number] BY: BN [facility] [address] [id number] Creatinine mass conc 0.59 mg/dL Normal 0.57-1.00 Comp rehensive Internal Medicine Work Phone: Comment on above: PATIENT NOT FASTINGP ERFORMED BY: CB [facility] Grgixd4276 Carrillo RoadDublin [place] [id number] BY: BN [facility] [address] [id number] GFR/1.73 sq M predicted among blacks CKD-EPI vol rate/area (S/P/Bld) 114 mL/min/1.73 Normal [facility] Work Phone: Comment on above: PATIENT NOT FASTINGP ERFORMED BY: CB [facility] Foxoxk5733 Carrillo RoadDublin [place] [id number] BY: [facility] [address] [id number] GFR/1.73 sq M predicted among non-blacks CKD-EPI vol rate/area (S/P/Bld) 99 mL/min/1.73 Normal Comprehensiv e Internal Medicine Work Phone: Comment on above: PATIENT NOT FASTINGP ERFORMED BY: CB [facility] Ooqdbv8941 [address] [facility] [id number] BY: [facility] [address] [id number] Globulin mass conc (S) 2.6 g/dL Normal 1.5-4.5 Co mprensive Internal Medicine Work Phone: Comment on above: PATIENT NOT FASTINGP ERFORMED BY: CB [facility] Gnxrxy6126 [address] [facility] [id number] BY: [facility] [address] [id number] Glucose mass conc 87 mg/dL Normal 65-99 Compreh ensive Internal Medicine Work Phone: Comment on above: PATIENT NOT FASTINGP ERFORMED BY: CB [facility] Accriv8957 [address] [facility] [id number] BY: BN [facility] [address] [id number] Potassium molar conc 4.6 mmol/L Normal 3.5-5.2 Comp rehensive Internal Medicine Work Phone: Comment on above: PATIENT NOT FASTINGP ERFORMED BY: CB [facility] Cplwxy6171 [address] [facility] [id number] BY: [facility] [address] [id number] Protein mass conc 6.8 g/dL Normal 6.0-8.5 Compreh ensive Internal Medicine Work Phone: Comment on above: PATIENT NOT FASTINGP ERFORMED BY: CB [facility] Nojpxw5746 [address] [facility] [id number] BY: [address] [id number] Sodium molar conc 141 mmol/L Normal 134-144 Compreh ensive Internal Medicine Work Phone: Comment on above: PATIENT NOT FASTINGP ERFORMED BY: CB [facility] Ttlmml2772 [address] [facility] [id number] BY: [address] [id number] Urea nitrogen mass conc 11 mg/dL Normal 8-27 [facility] Work Phone: Comment on above: PATIENT NOT FASTINGP ERFORMED BY: CB [facility] Zhyohy0080 [address] [facility] [id number] BY: Lab[address] [id number] Urea nitrogen/Creatinine mass ratio 19 mg/mg Normal 12-28 [facility] Work Phone: Comment on above: PATIENT NOT FASTINGP ERFORMED BY: CB [facility] Yqkfks5810 [facility] [id number] BY: [address] [id number] SED RATE ERYTHROCYTE ([id number]) Ordered By: Warehouse Supervisor on 06-14-2018 ESR Velocity (Bld) 5 mm/h Normal 0-40 Compre hensive Internal Medicine Work Phone: Comment on above: PATIENT NOT FASTINGP ERFORMED BY: CB [facility] Dmdgao3887 [facility] [id number] BY: [address] [id number] Systemic Lupus Profile (8623 [id number])Ordered By: Warehouse Supervisor on 06-14-2018 Chromatin Ab Qn <0.2 Normal 0.0-0.9 Comprehen sive Internal Medicine Work Phone: Comment on above: PATIENT NOT FASTINGP ERFORMED BY: LEANN [facility] Bfeinr0752 Carrillo RoadDublin [place] [id number] BY: [address] [id number] DNA double strand Ab Qn (S) 1 {IU/mL} Normal 0-9 [facility] Work Phone: Comment on above: Negative <5 Equivoca l 5 - 9 Positive >9 PATIENT NOT FASTINGP ERFORMED BY: LEANN [facility] Cuobwu9701 [address]rrillo RoadDublin [place] [id number] BY: [address] [id number] DNA double strand Ab Qn (S) 1 [IU]/mL Normal 0-9 [facility]; [facility] Work Phone: Comment on above: Negative <5 Equivoca l 5 - 9 Positive >9 PATIENT NOT FASTINGP ERFORMED BY: LEANN [facility] Jjlpty8147 Carrillo RoadDublin [place] [id number] BY: [address] [id number] Rheumatoid factor Qn [IU]/mL Normal 0.0-13.9 Comp [facility] Work Phone: Comment on above: PATIENT NOT FASTINGP ERFORMED BY: CB [facility] Nohcbh5268 Carrillo RoadDublin [place] [id number] BY: [address] [id number] Rheumatoid factor Qn [IU]/mL Normal 0.0-13.9 Comp rehensive Internal Medicine; [facility] Work Phone: Comment on above: PATIENT NOT FASTINGP ERFORMED BY: CB [facility] Akdhqx6554 Carrillo RoadDublin [place] [id number] BY: [address] [id number] Ribonucleoprotein extractable nuclear Ab Qn (S) <0.2 Normal 0.0-0.9 [facility] Work Phone: Comment on above: PATIENT NOT FASTINGP ERFORMED BY: [facility] Mgtkch7821 [facility] [id number] BY: [address] [id number] Sjogrens syndrome-A extractable nuclear Ab Qn (S) <0.2 Normal 0.0-0.9 [facility] Work Phone: Comment on above: PATIENT NOT FASTINGP ERFORMED BY: [facility] Nphtgx9559 [facility] [id number] BY: [address] [id number] Sjogrens syndrome-B extractable nuclear Ab Qn (S) <0.2 Normal 0.0-0.9 [facility] Work Phone: Comment on above: PATIENT NOT FASTINGP ERFORMED BY: [facility] Qpaglz8978 [facility] [id number] BY: [address] [id number] Ac extractable nuclear Ab Qn (S) <0.2 Normal 0.0-0.9 [facility] Work Phone: Comment on above: PATIENT NOT FASTINGP ERFORMED BY: [facility] Igcyhz9843 [facility] [id number] BY: [address] [id number] URINE BURKE CULTURE-DERREK COL C OUNT (22121)Ordered By: Warehouse Supervisor on 07-05-2016 Bacteria identified Cx Nom (U) Final report Normal [facility] Work Phone: Comment on above: PATIENT NOT FASTINGP ERFORMED BY: [facility] Zsuqzv6725 [facility] [id number] Information: SRC:CU Bacteria identified Cx Nom (U) NG36 Normal [facility] Work Phone: Comment on above: No growth in 36 - 48 hours. PATIENT NOT FASTINGP ERFORMED BY: [facility] Qkkjep0110 [facility] GroupNov[facility] [id number] Information: SRC: URINE BURKE CULTURE-IDENTIFICA TN (12211)Ordered By: Warehouse Supervisor on 06-21-2016 Bacteria identified Cx Nom (U) Escherichia coli Abnormal [facility] Work Phone: Comment on above: Greater than 100,000 colony forming units per mL PATIENT NOT FASTINGP ERFORMED BY: [facility] Lkgbdm4085 [facility] GroupNov[facility] [id number] Information: SRC: Bacteria identified Cx Nom (U) Final report Abnormal [facility] Work Phone: Comment on above: PATIENT NOT FASTINGP ERFORMED BY: [facility] Cnuyqz9405 [facility]rlilo [facility]SC GroupNov[facility] [id number] Information: SRC: Other Antibiotic [facility] Normal [facility] prehensive Internal Medicine Work Phone: Comment on above: S = Susceptible; I = Intermediate; R = Resistant P = Positive; N = Negative MICS are expressed in micrograms per mL Antibiotic RSLT#1 RSLT#2 RSLT#3 RSLT#4Amoxicillin/Clavulanic Acid SAmpicillin SCefepime SCeftriaxone SCefuroxime SCephalothin SCiprofloxacin SErtapenem SGentamicin SImipenem SLevofloxacin SNitrofurantoin SPiperacillin STetracycline STobramycin STrimethoprim/Sulfa S PATIENT NOT FASTINGP ERFORMED BY: [facility] Nokuuf1703 [address] SparkbuyUNC Health Johnston [id number] Information: SRC: Urinalysis, Office (98708)Or dered By: Zelda Shaw on 06-21-2016 Bilirubin Ql (U) Negative Normal Comprehe nsive Internal Medicine Work Phone: Bilirubin Ql (U) Negative Normal Comprehe nsive Internal Medicine; [facility] Work Phone: Glucose Test strip (U) [Mass/Vol] Negative Normal [facility]; [facility] Work Phone: Glucose Test strip mass conc (U) Negative Normal [facility] Work Phone: Hemoglobin Ql (U) Hemolyzed Large Normal Co mprehensive Internal Medicine Work Phone: Ketones Ql (U) Negative Normal Comprehens shahida Internal Medicine Work Phone: Ketones Ql (U) Negative Normal Comprehens [facility]ida Internal [facility]; [facility] Work Phone: Leukocyte esterase Test strip Ql (U) Large Normal [facility] Work Phone: Nitrite Ql (U) Negative Normal Comprehens [facility]ida [facility] Work Phone: Nitrite Ql (U) Negative Normal Comprehens [facility]; [facility] Work Phone: pH (U) 6 [pH] Abnormal [facility] Work Phone: Protein Ql (U) Negative Normal Comprehens sh[facility]ida [facility] Work Phone: Protein Ql (U) Negative Normal Comprehens shahida Internal [facility]; [facility] Work Phone: Specific gravity Relative Density (U) 1.030 1 Abnormal Comprehensi ve Internal Medicine Work Phone: Urobilinogen mass/time (24H U) Normal Normal [facility] Work Phone: Basic Metabolic Profile (BMP )Ordered By: Warehouse Supervisor on 11-27-2015 Basic metabolic 2000 panel 81.58 ml/min Normal [facility] Work Phone: Comment on above: [facility] [address] [place], [place], [phone] Basic metabolic 2000 panel 140 mmol/L Normal 136-145 [facility] Work Phone: Comment on above: [facility] [address] [place], [address] Basic metabolic 2000 panel 5 1 Normal 5-15 [facility] Work Phone: Comment on above: [facility] [address] [place], [place], [address] Basic metabolic 2000 panel 6 mg/dL Abnormal 7-18 [facility] Work Phone: Comment on above: [facility] [address] [place], [place], [address] Basic metabolic 2000 panel 106 mg/dL Normal 70-110 [facility] Work Phone: Comment on above: [facility] [address] [place], [place], [address] Basic metabolic 2000 panel 3.0 mmol/L Abnormal 3.5-5.1 [facility] Work Phone: Comment on above: [facility] [address] [place], [place], [address] Basic metabolic 2000 panel 7.8 mg/dL Abnormal 8.5-10.1 [facility] Work Phone: Comment on above: [place] [address] [place], [place], [address] Basic metabolic 2000 panel 0.58 mg/dL Normal 0.55-1.20 [facility] Work Phone: Comment on above: The validity of the calculated GFR AND GFRAA in patients over70 years has not been determined. Clinical correlation isessential. [facility] [address] [place], [place], [phone] Basic metabolic 2000 panel 10.4 {RATIO} Normal 10-20 [facility] Work Phone: Comment on above: [facility] [address] [place], [place], [phone] Basic metabolic 2000 panel 137 mL/min Normal [facility] Work Phone: Comment on above: GFR Calc [facility] [address] [place], [place], [address] Basic metabolic 2000 panel 107 mmol/L Normal 98-107 [facility] Work Phone: Comment on above: [place] [address] [place], [place], [address] Basic metabolic 2000 panel 28.0 mmol/L Normal 21.0-32.0 [facility] Work Phone: Comment on above: [facility] [address] [place], [place], [address] Basic metabolic 2000 panel 114 mL/min Normal [facility] Work Phone: Comment on above: Non- GFR Calc [facility] [address] [place], [place], [phone] CBC W/Diff, AutomatedOrdered By: Warehouse Supervisor on 11-27-2015 Absolute Neut 6.3 {X10_3/uL} Normal 2.0-7.7 Compreh ensive Internal Medicine Work Phone: Comment on above: [facility] [address] [place], [place], [address] Basophils/100 WBC (Bld) 0.5 % Normal 0-1 [facility] Work Phone: Comment on above: [facility] [address] [place], [address] Eosinophils/100 WBC (Bld) 2.2 % Normal 0-5 [facility] Work Phone: Comment on above: [facility] [address] [place], [place], [address] Erythrocyte distribution width Ratio (RBC) 12.5 % Normal 11.6-14.6 [facility] Work Phone: Comment on above: [facility] [address] [place], [address] Hematocrit Volume Fraction (Bld) 39.6 % Normal 37-47 [facility] Work Phone: Comment on above: [facility] [address] [place], [place], [phone] Hemoglobin mass conc (Bld) 13.3 g/dL Normal 12.0-15.0 [facility] Work Phone: Comment on above: [facility] [address] [place], [address] IM GRAN % 0.200 % Normal 0.0-0.9 [facility] Work Phone: Comment on above: IG% - Immature Granu locytes (promyelocytes, myelocytes andmetamyelocytes) > 1% indicates that a LEFT SHIFT is Present. [facility] [address] [place], [place], [phone] Lymphocytes #/vol (Bld) 1.70 {X10_3/ul} Normal 0.83-4.51 [facility] Work Phone: Comment on above: [facility] [address] [place], [address] Lymphocytes/100 WBC (Bld) 18.5 % Abnormal 19-41 [facility] Work Phone: Comment on above: [facility] [address] [place], [address] MCH Entitic mass (RBC) 31.4 pg Normal 27.0-32.0 [facility] Internal Medicine Work Phone: Comment on above: [facility] [address] [place], [address] MCHC mass conc (RBC) 33.6 {g/gl} Normal 32-36 [facility] Work Phone: Comment on above: [facility] [address] [place], [address] MCV Entitic volume (RBC) 93.6 fL Normal 81-99 [facility] Work Phone: Comment on above: [facility] [address] [place], [address] Monocytes/100 WBC (Bld) 10.4 % Abnormal 0-10 [facility] Work Phone: Comment on above: [facility] [address] [place], [place], [phone] Neutrophils/100 WBC (Bld) 68.2 % Normal 47-70 [facility] Work Phone: Comment on above: [facility] [address] [place], [address] Platelet mean volume Entitic volume (Bld) 10.0 fL Normal 6.2-12.0 Comprehensi Internal Medicine Work Phone: Comment on above: [facility] [address] [place], [phone]) Platelets #/vol (Bld) 244 10*3/uL Normal 150-450 [facility] Internal [facility] Work Phone: Comment on above: [facility] [address] [place], [place], [address] RBC #/vol (Bld) 4.23 {M/mm3} Normal 4.2-5.4 Compreh ensive Internal Medicine Work Phone: Comment on above: [facility] [address] [place], [address] RDW SD 41.8 fL Normal 35.1-43.9 [facility] Work Phone: Comment on above: [facility] [address] [place], [place], [address] WBC #/vol (Bld) 9.2 10*3/uL Normal 4.4-11.0 Comprehe nsive Internal Medicine Work Phone: Comment on above: [facility] [address] [place], [place], [address] CBC, Platelets & Auto Diff ( 41652)Ordered By: Warehouse Supervisor on 06-14-2015 Basophils #/vol (Bld) 0.0 {x10E3/uL} Normal 0.0-0.2 [facility] Work Phone: Comment on above: Send to Rafi; JUDY ENT NOT FASTINGPERFORMED BY: LEANN [facility] Mbzdzz3419 [facility] [id number] Information: [id number] Basophils (Bld) [#/Vol] 0.0 10*3/uL Normal 0.0-0.2 [facility]; [facility] Work Phone: Comment on above: Send to Rafi; JUDY ENT NOT FASTINGPERFORMED BY: LabCoBacharach Institute for RehabilitationZoccqu7859 [facility] [id number] Information: [id number] Basophils/100 WBC (Bld) 0 % Normal [facility] Work Phone: Comment on above: Send to Rafi; JUDY ENT NOT FASTINGPERFORMED BY: LabAsc[facility] Hospital6370 [facility] [id number] Information: [id number] Eosinophils #/vol (Bld) 0.2 {x10E3/uL} Normal 0.0-0.4 [facility] Work Phone: Comment on above: Send to Rafi; JUDY ENT NOT FASTINGPERFORMED BY: LabCoBacharach Institute for RehabilitationCorjbf3176 [facility] [id number] Information: [id number] Eosinophils (Bld) [#/Vol] 0.2 10*3/uL Normal 0.0-0.4 [facility]; [facility] Work Phone: Comment on above: Send to Rafi; JUDY ENT NOT FASTINGPERFORMED BY: [facility] Aedukx6697 [facility] [id number] Information: [id number] Eosinophils/100 WBC (Bld) 4 % Normal [facility] Work Phone: Comment on above: Send to Rafi; JUDY ENT NOT FASTINGPERFORMED BY: [facility] Znnbqr5001 [facility] [id number] Information: [id number] Erythrocyte distribution width Ratio (RBC) 13.4 % Normal 12.3-15.4 [facility] Work Phone: Comment on above: Send to Rafi; JUDY ENT NOT FASTINGPERFORMED BY: [place] [address] [facility] [id number] Information: [id number] Hematocrit Volume Fraction (Bld) 36.2 % Normal 34.0-46.6 [facility] Work Phone: Comment on above: Send to Rafi; JUDY ENT NOT FASTINGPERFORMED BY: [address] [id number] Information: [id number] Hemoglobin mass conc (Bld) 11.9 g/dL Normal 11.1-15.9 [facility] Work Phone: Comment on above: Send to Rafi; JUDY ENT NOT FASTINGPERFORMED BY: [address] [id number] Information: [id number] Immature granulocytes #/vol (Bld) 0.0 {x10E3/uL} Normal 0.0-0.1 [facility] Work Phone: Comment on above: Send to Rafi; JUDY ENT NOT FASTINGPERFORMED BY: [facility]6370 [facility] [id number] Information: [id number] Immature granulocytes (Bld) [#/Vol] 0.0 10*3/uL Normal 0.0-0.1 [facility]; [facility] Work Phone: Comment on above: Send to Rafi; JUDY ENT NOT FASTINGPERFORMED BY: [place] [address]9970 [facility] [id number] Information: [id number] Immature granulocytes/100 WBC (Bld) 0 % Normal [facility] Work Phone: Comment on above: Send to Rafi; JUDY ENT NOT FASTINGPERFORMED BY: CB [facility] Osctgk0993 [facility] [id number] Information: [id number] Lymphocytes #/vol (Bld) 1.7 {x10E3/uL} Normal 0.7-3.1 [facility] Work Phone: Comment on above: Send to Rafi; JUDY ENT NOT FASTINGPERFORMED BY: CB [facility] Dcdczb3121 [facility] [id number] Information: [id number] Lymphocytes (Bld) [#/Vol] 1.7 10*3/uL Normal 0.7-3.1 [facility]; [facility] Internal Medicine Work Phone: Comment on above: Send to Rafi; JUDY ENT NOT FASTINGPERFORMED BY: [facility] Sadlof6480 [facility] [id number] Information: [id number] Lymphocytes/100 WBC (Bld) 29 % Normal [facility] Internal Medicine Work Phone: Comment on above: Send to Rafi; JUDY ENT NOT FASTINGPERFORMED BY: [facility] Ixwjvn6681 [facility] [id number] Information: [id number] MCH Entitic mass (RBC) 30.6 pg Normal 26.6-33.0 [facility] Internal Medicine Work Phone: Comment on above: Send to Rafi; JUDY ENT NOT FASTINGPERFORMED BY: CB [facility] Abnccc4413 [facility] [id number] Information: [id number] MCHC mass conc (RBC) 32.9 g/dL Normal 31.5-35.7 [facility] Internal Medicine Work Phone: Comment on above: Send to Rafi; JUDY ENT NOT FASTINGPERFORMED BY: [facility] Kcllie4359 [facility] [id number] Information: [id number] MCV Entitic volume (RBC) 93 fL Normal 79-97 [facility] Work Phone: Comment on above: Send to Rafi; JUDY ENT NOT FASTINGPERFORMED BY: LEANN [facility] Jdbinc3413 [facility] [id number] Information: [id number] Monocytes #/vol (Bld) 0.5 {x10E3/uL} Normal 0.1-0.9 [facility] Work Phone: Comment on above: Send to Rafi; JUDY ENT NOT FASTINGPERFORMED BY: LEANN [facility] Nufops0430 [facility] [id number] Information: [id number] Monocytes (Bld) [#/Vol] 0.5 10*3/uL Normal 0.1-0.9 [facility]; [facility] Work Phone: Comment on above: Send to Rafi; JUDY ENT NOT FASTINGPERFORMED BY: LEANN [facility] Vquyph4243 [facility] [id number] Information: [id number] Monocytes/100 WBC (Bld) 8 % Normal [facility] Work Phone: Comment on above: Send to Rfai; JUDY ENT NOT FASTINGPERFORMED BY: LEANN [facility] Mrrypt1546 [facility] [id number] Information: [id number] Neutrophils #/vol (Bld) 3.5 {x10E3/uL} Normal 1.4-7.0 [facility] Work Phone: Comment on above: Send to Rafi; JUDY ENT NOT FASTINGPERFORMED BY: [facility] Oeixsv8024 [facility] [id number] Information: [id number] Neutrophils (Bld) [#/Vol] 3.5 10*3/uL Normal 1.4-7.0 [facility]; [facility] Work Phone: Comment on above: Send to Rafi; JUDY ENT NOT FASTINGPERFORMED BY: LEANN [facility] Uwxkmd1286 [facility] [id number] Information: [id number] Neutrophils/100 WBC (Bld) 59 % Normal [facility] Work Phone: Comment on above: Send to Rafi; JUDY ENT NOT FASTINGPERFORMED BY: CB [facility] Ycawhi6925 [facility] [id number] Information: [id number] Platelets #/vol (Bld) 244 {x10E3/uL} Normal 150-379 [facility] Work Phone: Comment on above: Send to Rafi; JUDY ENT NOT FASTINGPERFORMED BY: [facility] Whjxhw3310 [facility] [id number] Information: [id number] Platelets (Bld) [#/Vol] 244 10*3/uL Normal 150-379 [facility]; [facility] Internal Medicine Work Phone: Comment on above: Send to Rafi; JUDY ENT NOT FASTINGPERFORMED BY: [facility] Cuuyna5290 [facility] [id number] Information: [id number] RBC #/vol (Bld) 3.89 {x10E6/uL} Normal 3.77-5.28 [facility] Internal Medicine Work Phone: Comment on above: Send to Rafi; JUDY ENT NOT FASTINGPERFORMED BY: [facility] Hndoce2197 [facility] [id number] Information: [id number] RBC (Bld) [#/Vol] 3.89 10*6/uL Normal 3.77-5.28 [facility] Internal Medicine; [facility] Internal Medicine Work Phone: Comment on above: Send to Rafi; JUDY ENT NOT FASTINGPERFORMED BY: CB [facility] Aksfzg5557 [facility] [id number] Information: [id number] WBC #/vol (Bld) 5.9 {x10E3/uL} Normal 3.4-10.8 [facility] Internal Medicine Work Phone: Comment on above: Send to Rafi; JUDY ENT NOT FASTINGPERFORMED BY: LEANN [facility] Hdydbx1903 [address] RoadDublin [place] [id number] Information: [id number] WBC (Bld) [#/Vol] 5.9 10*3/uL Normal 3.4-10.8 [facility] Internal Medicine; [facility] Work Phone: Comment on above: Send to Rafi; JUDY ENT NOT FASTINGPERFORMED BY: LEANN [facility] Eevcuh3127 [address] RoadDublin [place] [id number] Information: [id number] PT (PROTHROMBIN TIME) ([id number] )Ordered By: Warehouse Supervisor on 06-14-2015 INR Coag RelTime (PPP) 1.0 {INR} Normal 0.8-1.2 [facility] Internal Medicine Work Phone: Comment on above: Reference interval i s for non-anticoagulated patients. . Suggested INR therapeutic range for Vitamin K antagonist therapy: Standard Dose (moderate intensity therapeutic range): 2.0 - 3.0 Higher intensity therapeutic range 2.5 - 3.5 send to Rafi; JUDY ENT NOT FASTINGPERFORMED BY: LEANN [facility] Iwibwe5841 [address] RoadDublin [place] [id number] Prothrombin time (PT) Coag time (PPP) 10.3 {sec} Normal 9.1-12.0 [facility] Internal Medicine Work Phone: Comment on above: send to Rafi; JUDY ENT NOT FASTINGPERFORMED BY: CB [facility] Ftdbie7593 [address] RoadDublin [place] [id number] PT Coag (PPP) [Time] 10.3 s Normal 9.1-12.0 [facility] Internal Medicine; [facility] Work Phone: Comment on above: send to Rafi; JUDY ENT NOT FASTINGPERFORMED BY: CB [facility] Rgylyh5204 [address] RoadDublin [place] [id number] RENAL FUNCTION PANEL ([id number]) Ordered By: Warehouse Supervisor on 06-14-2015 Albumin mass conc 4.0 g/dL Normal 3.5-5.5 Compreh ensive Internal Medicine Work Phone: Comment on above: send to Rafi; JUDY ENT NOT FASTINGPERFORMED BY: CB [facility] Xaizgy3095 [address] RoadDublin [place] [id number] Calcium mass conc 9.4 mg/dL Normal 8.7-10.2 Compreh ensive Internal Medicine Work Phone: Comment on above: send to Rafi; JUDY ENT NOT FASTINGPERFORMED BY: CB [facility] Scrjlx7656 [address] RoadDublin [place] [id number] Chloride molar conc 103 mmol/L Normal 97-108 Compr ehensive Internal Medicine Work Phone: Comment on above: send to Rafi; JUDY ENT NOT FASTINGPERFORMED BY: CB [facility] Ilvwrh3405 [address] RoadDublin [place] [id number] CO2 molar conc 26 mmol/L Normal 18-29 Comprehens shahida Internal Medicine Work Phone: Comment on above: send to Rafi; JUDY ENT NOT FASTINGPERFORMED BY: CB [facility] Cxkeao8597 [address] RoadDublin [place] [id number] Creatinine mass conc 0.56 mg/dL Abnormal 0.57-1.00 Comp rehensive Internal Medicine Work Phone: Comment on above: send to Rafi; JUDY ENT NOT FASTINGPERFORMED BY: CB [facility] Hododn3961 [address] RoadDublin [place] [id number] GFR/1.73 sq M predicted among blacks CKD-EPI vol rate/area (S/P/Bld) 118 mL/min/1.73 Normal [facility] Work Phone: Comment on above: send to Rafi; JUDY ENT NOT FASTINGPERFORMED BY: CB [facility] Okxhwb3486 [address] RoadDublin [place] [id number] GFR/1.73 sq M predicted among non-blacks CKD-EPI vol rate/area (S/P/Bld) 102 mL/min/1.73 Normal Comprehensiv e Internal Medicine Work Phone: Comment on above: send to Rafi; JUDY ENT NOT FASTINGPERFORMED BY: CB [facility] Vouevm0131 [address]illo [address]Dublin [place] [id number] Glucose mass conc 89 mg/dL Normal 65-99 Compreh ensive Internal Medicine Work Phone: Comment on above: send to Rafi; JUDY ENT NOT FASTINGPERFORMED BY: CB [facility] Rcuoxi9073 [address] RoadDublin [place] [id number] Phosphate mass conc 3.8 mg/dL Normal 2.5-4.5 Compr ehensive Internal Medicine Work Phone: Comment on above: send to Rafi; JUDY ENT NOT FASTINGPERFORMED BY: CB [facility] Plgirv4382 [address] RoadDublin [place] [id number] Potassium molar conc 4.3 mmol/L Normal 3.5-5.2 Comp rehensive Internal Medicine Work Phone: Comment on above: send to Rafi; JUDY ENT NOT FASTINGPERFORMED BY: CB [facility] Ajgorg4559 [address] RoadDublin [place] [id number] Sodium molar conc 143 mmol/L Normal 134-144 Compreh ensive Internal Medicine Work Phone: Comment on above: send to Rafi; JUDY ENT NOT FASTINGPERFORMED BY: CB [facility] Xloucq8483 [address] RoadDublin [place] [id number] Urea nitrogen mass conc 10 mg/dL Normal 6-24 [facility] Work Phone: Comment on above: send to Rafi; JUDY ENT NOT FASTINGPERFORMED BY: CB [facility] Hldniy3124 [address] RoadDublin [place] [id number] Urea nitrogen/Creatinine mass ratio 18 mg/mg Normal 9-23 [facility] Work Phone: Comment on above: send to Rafi; JUDY ENT NOT FASTINGPERFORMED BY: CB [facility] Wqltvv3161 [address]Dublin [place] [id number] Urinalysis, Office ([id number])Or dered By: Ani Fisher on 06-14-2015 Bilirubin Ql (U) Negative Normal Comprehe nsive Internal Medicine Work Phone: Glucose Test strip mass conc (U) Negative Normal [facility] Work Phone: Hemoglobin Ql (U) Negative Normal Compreh ensive Internal Medicine Work Phone: Ketones Ql (U) Small Normal Comprehens [facility] Work Phone: Leukocyte esterase Test strip Ql (U) Trace Normal [facility] Work Phone: Nitrite Ql (U) Negative Normal Comprehens [facility] Work Phone: pH (U) 7 [pH] Normal [facility] Work Phone: Protein Ql (U) Negative Normal Comprehens [facility] Work Phone: Specific gravity Relative Density (U) 1.020 1 Normal Comprehensi ve Internal Medicine Work Phone: Urobilinogen mass/time (24H U) Normal Normal [facility] Work Phone: Urinalysis, Office ([id number])on 06-14-2015 Bilirubin Ql (U) Negative Normal Comprehe nsive Internal Medicine; [facility] Work Phone: Glucose Test strip (U) [Mass/Vol] Negative Normal [facility]; [facility] Work Phone: Hemoglobin Ql (U) Negative Normal Compreh ensive Internal Medicine; [facility] Work Phone: Nitrite Ql (U) Negative Normal Comprehens [facility]; [facility] Work Phone: Protein Ql (U) Negative Normal Comprehens [facility]; [facility] Work Phone: ANTINUCLEAR ANTIBODIES DIREC TOrdered By: Warehouse Supervisor on 08-21-2014 ANTINUCLEAR ANTIBODIES DIRECT Negative Normal [facility] Work Phone: Comment on above: REFERENCE INTERVAL: NEGATIVE Test performed at:[facility] [address] [place], [place] [address] [id number] By: System Manage r on 08-21-2014 Cobalamin (Vitamin B12) mass conc 420 pg/mL Normal 211-911 [facility] Work Phone: CBCDOrdered By: System [facility] er on 08-21-2014 Erythrocyte distribution width Ratio (RBC) 12.7 % Normal 11.6-14.6 [facility] Work Phone: Hematocrit Volume Fraction (Bld) 38.2 % Normal 37-47 [facility] Work Phone: Hemoglobin mass conc (Bld) 12.5 g/dL Normal 12.0-15.0 [facility] Work Phone: MCH Entitic mass (RBC) 31.1 pg Normal 27.0-32.0 Co mprehensive Internal Medicine Work Phone: MCHC mass conc (RBC) 32.7 {g/gl} Normal 32-36 Com prehensive Internal Medicine Work Phone: MCV Entitic volume (RBC) 95.0 fL Normal 81-99 [facility] Work Phone: Platelet mean volume Entitic volume (Bld) 10.8 fL Normal 6.2-12.0 Comprehensi ve Internal Medicine Work Phone: Platelets #/vol (Bld) 229 10*3/uL Normal 150-450 Co mprehensive Internal Medicine Work Phone: RBC #/vol (Bld) 4.02 {M/mm3} Abnormal 4.2-5.4 Compreh ensive Internal Medicine Work Phone: WBC #/vol (Bld) 6.9 10*3/uL Normal 4.4-11.0 Comprehe nsive Internal Medicine Work Phone: CBCD 43.0 fL Normal 35.1-43.9 [facility] Work Phone: CBCD 66.6 % Normal 47-70 [facility] Work Phone: CBCD 24.4 % Normal 19-41 [facility] Work Phone: CBCD 6.7 % Normal 0-10 [facility] Work Phone: CBCD 1.9 % Normal 0-5 [facility] Work Phone: CBCD 0.3 % Normal 0-1 [facility] Work Phone: CBCD 0.100 % Normal 0.0-0.9 [facility] Internal Medicine Work Phone: Comment on above: IG% - Immature Granu locytes (promyelocytes, myelocytes andmetamyelocytes) > 1% indicates that a LEFT SHIFT is Present. CBCD 1.67 {X10_3/ul} Normal 0.83-4.51 Comprehen sive Internal Medicine Work Phone: CBCD 4.6 {X10_3/uL} Normal 2.0-7.7 Comprehens [facility] Work Phone: CMPOrdered By: System Manage r on 08-21-2014 Albumin mass conc 3.6 g/dL Normal 3.4-5.0 Compreh [facility] Internal Medicine Work Phone: Comment on above: Has Patient had X-ra ys with Contrast this admission? NIs Patient on Heparin? NIs Patient Taking Vitamins or Folic Acid Supplements? N Albumin/Globulin mass ratio 1.0 {RATIO} Normal 0.9-2.4 [facility] Internal Medicine Work Phone: Comment on above: Has Patient had X-ra ys with Contrast this admission? NIs Patient on Heparin? NIs Patient Taking Vitamins or Folic Acid Supplements? N ALP enzyme act/vol 64 U/L Normal 50-136 [facility] Work Phone: Comment on above: Has Patient had X-ra ys with Contrast this admission? NIs Patient on Heparin? NIs Patient Taking Vitamins or Folic Acid Supplements? N ALT enzyme act/vol 24 U/L Normal 12-78 [facility] Internal Medicine Work Phone: Comment on above: Has Patient had X-ra ys with Contrast this admission? NIs Patient on Heparin? NIs Patient Taking Vitamins or Folic Acid Supplements? N AST enzyme act/vol 22 U/L Normal 15-37 [facility] Internal Medicine Work Phone: Comment on above: Has Patient had X-ra ys with Contrast this admission? NIs Patient on Heparin? NIs Patient Taking Vitamins or Folic Acid Supplements? N Bilirubin mass conc 0.40 mg/dL Normal 0.00-4.00 Compr ensive Internal Medicine Work Phone: Comment on above: Has Patient had X-ra ys with Contrast this admission? NIs Patient on Heparin? NIs Patient Taking Vitamins or Folic Acid Supplements? N Calcium mass conc 8.6 mg/dL Normal 8.5-10.1 Compreh ensive Internal Medicine Work Phone: Comment on above: Has Patient had X-ra ys with Contrast this admission? NIs Patient on Heparin? NIs Patient Taking Vitamins or Folic Acid Supplements? N Chloride molar conc 106 mmol/L Normal 98-107 Compr ensive Internal Medicine Work Phone: Comment on above: Has Patient had X-ra ys with Contrast this admission? NIs Patient on Heparin? NIs Patient Taking Vitamins or Folic Acid Supplements? N CO2 molar conc 27.0 mmol/L Normal 21.0-32.[address] [facility] Internal Medicine Work Phone: Comment on above: Has Patient had X-ra ys with Contrast this admission? NIs Patient on Heparin? NIs Patient Taking Vitamins or Folic Acid Supplements? N Creatinine mass conc 0.7 mg/dL Normal 0.6-1.0 [facility] Work Phone: Comment on above: Has Patient had X-ra ys with Contrast this admission? NIs Patient on Heparin? NIs Patient Taking Vitamins or Folic Acid Supplements? N GFR/1.73 sq M predicted among non-blacks MDRD vol rate/area (S/P/Bld) 91 mL/min/{1.73_m2} Normal [facility] Work Phone: Comment on above: Has Patient had X-ra ys with Contrast this admission? NIs Patient on Heparin? NIs Patient Taking Vitamins or Folic Acid Supplements? N Globulin mass conc (S) 3.6 g/dL Normal 2.7-4.2 Co [facility] Internal Medicine Work Phone: Comment on above: Has Patient had X-ra ys with Contrast this admission? NIs Patient on Heparin? NIs Patient Taking Vitamins or Folic Acid Supplements? N Glucose mass conc 87 mg/dL Normal 70-110 Compreh [facility] Internal Medicine Work Phone: Comment on above: Has Patient had X-ra ys with Contrast this admission? NIs Patient on Heparin? NIs Patient Taking Vitamins or Folic Acid Supplements? N Potassium molar conc 3.9 mmol/L Normal 3.5-5.1 [facility] Work Phone: Comment on above: Has Patient had X-ra ys with Contrast this admission? NIs Patient on Heparin? NIs Patient Taking Vitamins or Folic Acid Supplements? N Protein mass conc 7.2 g/dL Normal 6.4-8.2 Compreh ensive Internal Medicine Work Phone: Comment on above: Has Patient had X-ra ys with Contrast this admission? NIs Patient on Heparin? NIs Patient Taking Vitamins or Folic Acid Supplements? N Sodium molar conc 139 mmol/L Normal 136-145 [facility] Work Phone: Comment on above: Has Patient had X-ra ys with Contrast this admission? NIs Patient on Heparin? NIs Patient Taking Vitamins or Folic Acid Supplements? N Urea nitrogen mass conc 13 mg/dL Normal 7-18 [facility] Work Phone: Comment on above: Has Patient had X-ra ys with Contrast this admission? NIs Patient on Heparin? NIs Patient Taking Vitamins or Folic Acid Supplements? N Urea nitrogen/Creatinine mass ratio 18.6 {RATIO} Normal 10-20 [facility] Work Phone: Comment on above: Has Patient had X-ra ys with Contrast this admission? NIs Patient on Heparin? NIs Patient Taking Vitamins or Folic Acid Supplements? N CMP 6 1 Normal 5-15 [facility] Work Phone: Comment on above: Has Patient had X-ra ys with Contrast this admission? NIs Patient on Heparin? NIs Patient Taking Vitamins or Folic Acid Supplements? N CMP 110 mL/min Normal [facility] Work Phone: Comment on above: Has Patient had X-ra ys with Contrast this admission? NIs Patient on Heparin? NIs Patient Taking Vitamins or Folic Acid Supplements? N CRPOrdered By: System Manage r on 08-21-2014 CRP mass conc mg/L Normal 0.0-3.0 Comprehensi Internal Medicine Work Phone: Comment on above: C-Reactive Protein ( CRP) provides useful information for thediagnosis, therapy and monitoring of inflammatory processesand associated diseases. For the evaluation of Relative Riskfor Cardiovascular Disease, a High Sensitivity CRP (HSCRP)should be ordered. Has Patient had X-ra ys with Contrast this admission? NIs Patient on Heparin? NIs Patient Taking Vitamins or Folic Acid Supplements? N FEOrdered By: Warehouse Supervisor on 08-21-2014 FE 112 ug/dL Normal 50-170 [facility] Work Phone: Comment on above: Has Patient had X-ra ys with Contrast this admission? NIs Patient on Heparin? NIs Patient Taking Vitamins or Folic Acid Supplements? N FEROrdered By: System Manage r on 08-21-2014 SHADY 62 ng/mL Normal 8-252 [facility] Work Phone: Comment on above: Has Patient had X-ra ys with Contrast this admission? NIs Patient on Heparin? NIs Patient Taking Vitamins or Folic Acid Supplements? N FOLOrdered By: System Manage r on 08-21-2014 FOL 32.20 ng/mL Abnormal 3.1-17.5 [facility] Work Phone: Comment on above: Has Patient had X-ra ys with Contrast this admission? NIs Patient on Heparin? NIs Patient Taking Vitamins or Folic Acid Supplements? N [id number] By: System Manage r on 08-21-2014 FT3 2.9 pg/mL Normal 2.18-3.98 [facility] Work Phone: Comment on above: Has Patient had X-ra ys with Contrast this admission? NIs Patient on Heparin? NIs Patient Taking Vitamins or Folic Acid Supplements? N HOMOOrdered By: System Manag er on 08-21-2014 HOMO 5.8 umol/L Normal 3.2-10.7 [facility] Work Phone: Methylmalonic Acid BldOrdere d By: Warehouse Supervisor on 08-21-2014 Methylmalonic Acid Bld 133 1 Normal [facility] Work Phone: Comment on above: nmol/L REFERENCE INT ERVAL: 0 - 378Please note reference interval change __ TESTING PERFORMED AT [facility]. ORIGINAL REPORT ON FILE IN LAB CONTAINS ADDITIONAL TEST SITE INFORMATION. Test performed at:[facility] [address] [place], [place] [id number] RFOrdered By: Warehouse Supervisor on 08-21-2014 RF < 10.0 Normal [facility] Work Phone: Comment on above: Has Patient had X-ra ys with Contrast this admission? NIs Patient on Heparin? NIs Patient Taking Vitamins or Folic Acid Supplements? N SEDOrdered By: System Manage r on 08-21-2014 SED 11 mm/h Normal 0-30 [facility] Work Phone: [id number] By: System Manage r on 08-21-2014 T4F 0.99 ng/dL Normal 0.76-1.46 [facility] Work Phone: Comment on above: Has Patient had X-ra ys with Contrast this admission? NIs Patient on Heparin? NIs Patient Taking Vitamins or Folic Acid Supplements? N TSHOrdered By: System Manage r on 08-21-2014 Thyrotropin Qn 1.56 {uIU/mL} Normal 0.358-3.74 Compreh ensive Internal Medicine Work Phone: Comment on above: Has Patient had X-ra ys with Contrast this admission? NIs Patient on Heparin? NIs Patient Taking Vitamins or Folic Acid Supplements? N VITDOrdered By: System Manag er on 08-21-2014 VITD 39.9 ng/mL Normal [facility] Work Phone: Comment on above: Vitamin D 25(OH) Sta tus RangeDeficiency <20 ng/mL (50nmol/L)Insuffciency 20 - 30 ng/mL (50 - 75 nmol/L)Sufficiency 30 - 100 ng/mL (75 - 250 nmol/L)Toxicity >100 ng/mL (>250 nmol/L) DANDY (ANTINUCLEAR ANTIBODY) ( 81379)Ordered By: Warehouse Supervisor on 12-30-2013 Nuclear Ab Ql (S) Negative Normal Compreh ensive Internal Medicine Work Phone: Comment on above: PATIENT NOT FASTINGP ERFORMED BY: CB [facility] Kafifu4018 Carr[address] Roadblin [place] [id number] BY: [employer] [id number] Nuclear Ab Ql (S) Negative Normal Compreh ensive Internal Medicine; [facility] Work Phone: Comment on above: PATIENT NOT FASTINGP ERFORMED BY: CB [facility] Angaee[address] [facility] [id number] BY: [employer] [address] [id number] C-REACTIVE PROTEIN (20051)Or dered By: Warehouse Supervisor on 12-30-2013 CRP mass conc 1.1 mg/L Normal 0.0-4.9 Comprehensi ve Internal Medicine Work Phone: Comment on above: PATIENT NOT FASTINGP ERFORMED BY: [employer] [facility] Nynfgv[address] [facility] [id number] BY: [employer]in[employer]rp [address] [id number] CALCIFIDIOL (86240) VIT D 25 Ordered By: Warehouse Supervisor on 12-30-2013 25-Hydroxyvitamin D2+25-Hydroxyvitamin D3 mass conc 34.9 ng/mL Normal 30.0-100.0 [facility] Work Phone: Comment on above: Vitamin D deficiency has been defined by the [place] ofMedicine and an Endocrine Society practice guideline as alevel of serum 25-OH vitamin D less than 20 ng/mL (1,2).The Endocrine Society went on to further define vitamin Dinsufficiency as a level between 21 and 29 ng/mL (2).1. IOM ([place] of Medicine). 2010. Dietary reference intakes for calcium and D. [place]: The National Academies Press.2. Hiram MF, Gayatri FRITZ, Andre FAGAN, et al. Evaluation, treatment, and prevention of vitamin D deficiency: an Endocrine Society clinical practice guideline. JCEM. 2010; 96(7):1911-30. PATIENT NOT FASTINGP ERFORMED BY: CB [facility] Rhhefr6763 Carrillo RoadDublin [place] [id number] BY: [address] [id number] CBC (AUTO) (94199)Ordered By : Warehouse Supervisor on 12-30-2013 Erythrocyte distribution width Ratio (RBC) 13.0 % Normal 12.3-15.4 [facility] Work Phone: Comment on above: PATIENT NOT FASTINGP ERFORMED BY: CB [facility] Toxebk5910 [address]illo RoadDublin [place] [id number] BY: Lab[address] [id number] Hematocrit Volume Fraction (Bld) 36.7 % Normal 34.0-46.6 [facility] Internal Medicine Work Phone: Comment on above: PATIENT NOT FASTINGP ERFORMED BY: CB [facility] Okvori2888 [address]illo RoadDublin [place] [id number] BY: [address] [id number] Hemoglobin mass conc (Bld) 12.3 g/dL Normal 11.1-15.9 [facility] Internal Medicine Work Phone: Comment on above: PATIENT NOT FASTINGP ERFORMED BY: CB [facility] Qfgatn8522 [address] [facility] [place] [id number] BY: Lab[address] [id number] MCH Entitic mass (RBC) 30.5 pg Normal 26.6-33.0 [facility] Internal Medicine Work Phone: Comment on above: PATIENT NOT FASTINGP ERFORMED BY: CB [facility] Lgxncl7493 [address] RoadDublin [place] [id number] BY: [address] [id number] MCHC mass conc (RBC) 33.5 g/dL Normal 31.5-35.7 Comp rehensive Internal Medicine Work Phone: Comment on above: PATIENT NOT FASTINGP ERFORMED BY: CB [facility] Qforzv1718 [address] [facility] [id number] BY: [facility] [id number] MCV Entitic volume (RBC) 91 fL Normal 79-97 [facility] Work Phone: Comment on above: PATIENT NOT FASTINGP ERFORMED BY: CB [facility] Ndyaah7184 [address] [facility] [id number] BY: [address] [id number] Platelets #/vol (Bld) 221 {x10E3/uL} Normal 155-379 [facility] Work Phone: Comment on above: PATIENT NOT FASTINGP ERFORMED BY: CB [facility] Hjaqif7224 [facility] [id number] BY: [address] [id number] Platelets (Bld) [#/Vol] 221 10*3/uL Normal 155-379 [facility]; [facility] Work Phone: Comment on above: PATIENT NOT FASTINGP ERFORMED BY: CB [facility] Dctxjj5136 [facility] [id number] BY: [facility] [id number] RBC #/vol (Bld) 4.03 {x10E6/uL} Normal 3.77-5.28 [facility] Work Phone: Comment on above: PATIENT NOT FASTINGP ERFORMED BY: CB [facility] Cvbipi6787 [address] [facility] [id number] BY: [address] [id number] RBC (Bld) [#/Vol] 4.03 10*6/uL Normal 3.77-5.28 Compr ehensive Internal Medicine; [facility] Work Phone: Comment on above: PATIENT NOT FASTINGP ERFORMED BY: [facility] Ftvuoz6541 [facility] [id number] BY: [employer] [id number] WBC #/vol (Bld) 5.0 {x10E3/uL} Normal 3.4-10.8 Compr [facility] Internal Medicine Work Phone: Comment on above: PATIENT NOT FASTINGP ERFORMED BY: [facility] Sxveas1597 [facility] [id number] BY: [employer] [id number] WBC (Bld) [#/Vol] 5.0 10*3/uL Normal 3.4-10.8 [facility]; [facility] Work Phone: Comment on above: PATIENT NOT FASTINGP ERFORMED BY: [facility] Sesamerp Lepzfb5268 [facility] [id number] BY: [employer] [id number] DHEA-S (DEHYDROEPIANDROSTERO NE SULFATE) (60684)Ordered By: Warehouse Supervisor on 12-30-2013 Dehydroepiandrosterone sulfate (DHEA-S) mass conc 34.5 ug/dL Normal 29.4-220.5 [facility] Work Phone: Comment on above: PATIENT NOT FASTINGP ERFORMED BY: [facility] SesameBacharach Institute for RehabilitationNgbcuj4395 [facility] [id number] BY: [employer] [id number] Folate (48135)Ordered By: stem Drying Machine Receiver on 12-30-2013 Folate mass conc ng/mL Normal [facility] Internal Medicine Work Phone: Comment on above: A serum folate ricky ntration of less than 3.1 ng/mL isconsidered to represent clinical deficiency. PATIENT NOT FASTINGP ERFORMED BY: [facility] Iqwlip9606 [facility] [id number] BY: [address] [id number] Metabolic Panel, Comprehensi ve (43524)Ordered By: Warehouse Supervisor on 12-30-2013 Albumin mass conc 3.9 g/dL Normal 3.5-5.5 Compreh ensive Internal Medicine Work Phone: Comment on above: PATIENT NOT FASTINGP ERFORMED BY: [facility] Ahpqiq1576 [facility] [id number] BY: [address] [id number] Information: 172551,[id number] Albumin/Globulin mass ratio 1.7 {ratio} Normal 1.1-2.5 [facility] Work Phone: Comment on above: PATIENT NOT FASTINGP ERFORMED BY: [facility] Xjusuf6778 [facility] [id number] BY: Lab[address] [id number] Information: 258324,[id number] ALP [Catalytic activity/Vol] 57 U/L Normal 39-117 [facility]; [facility] Work Phone: Comment on above: PATIENT NOT FASTINGP ERFORMED BY: [facility] Mhmpnb8777 [facility] [id number] BY: Lab[address] [id number] Information: [id number] ALP enzyme act/vol 57 [iU]/L Normal 39-117 Compre [facility] Internal Medicine Work Phone: Comment on above: PATIENT NOT FASTINGP ERFORMED BY: [facility] Smekcm8985 [facility] [id number] BY: [address] [id number] Information: [id number] ALT [Catalytic activity/Vol] 15 U/L Normal 0-32 [facility]; [facility] Internal Medicine Work Phone: Comment on above: PATIENT NOT FASTINGP ERFORMED BY: CB [facility] Vugkgv1617 [address] RoadDublin [place] [id number] BY: [facility] [id number] Information: [id number] ALT enzyme act/vol 15 [iU]/L Normal 0-32 [facility] Internal Medicine Work Phone: Comment on above: PATIENT NOT FASTINGP ERFORMED BY: CB [facility] Pansuo2072 [address] RoadDublin [place] [id number] BY: [facility] [id number] Information: [id number] AST [Catalytic activity/Vol] 20 U/L Normal 0-40 [facility] Internal Medicine; [facility] Internal Medicine Work Phone: Comment on above: PATIENT NOT FASTINGP ERFORMED BY: CB [facility] Ddjfnd8845 [address] RoadDublin [place] [id number] BY: [address] [id number] Information: [id number] AST enzyme act/vol 20 [iU]/L Normal 0-40 [facility] Internal Medicine Work Phone: Comment on above: PATIENT NOT FASTINGP ERFORMED BY: CB [facility] Swmjjs2742 [address] RoadDublin [place] [id number] BY: [facility] [id number] Information: [id number] Bilirubin mass conc 0.3 mg/dL Normal 0.0-1.2 [facility] Internal Medicine Work Phone: Comment on above: PATIENT NOT FASTINGP ERFORMED BY: CB [facility] Kwdsao8628 [address] RoadDublin [place] [id number] BY: Lab[address] [id number] Information: [id number] Calcium mass conc 9.1 mg/dL Normal 8.7-10.2 Compreh ensive Internal Medicine Work Phone: Comment on above: PATIENT NOT FASTINGP ERFORMED BY: CB [facility] Decuzu8565 [address] RoadDublin [place] [id number] BY: [facility] [address] [id number] Information: [id number],[id number] Chloride molar conc 105 mmol/L Normal 97-108 Compr ehensive Internal Medicine Work Phone: Comment on above: PATIENT NOT FASTINGP ERFORMED BY: CB [facility] Dwbozg4851 [address] [facility] [id number] BY: [facility] [address] [id number] Information: 511145,[id number] CO2 molar conc 24 mmol/L Normal 19-28 Comprehens [facility] Internal Medicine Work Phone: Comment on above: PATIENT NOT FASTINGP ERFORMED BY: CB [facility] Opbujb9119 [address] [facility] [id number] BY: [facility] [address] [id number] Information: [id number] Creatinine mass conc 0.57 mg/dL Normal 0.57-1.00 Comp [facility] Work Phone: Comment on above: PATIENT NOT FASTINGP ERFORMED BY: CB [facility] Xhohgk7984 [address] [facility] [place] [id number] BY: [facility] [address] [id number] Information: [id number] GFR/1.73 sq M predicted among blacks CKD-EPI vol rate/area (S/P/Bld) 118 mL/min/1.73 Normal [facility] Work Phone: Comment on above: PATIENT NOT FASTINGP ERFORMED BY: CB [facility] Lkjtsb7160 Carr[address] Roadblin [place] [id number] BY: [address] [id number] Information: [id number],[id number] GFR/1.73 sq M predicted among non-blacks CKD-EPI vol rate/area (S/P/Bld) 103 mL/min/1.73 Normal Comprehensiv e Internal Medicine Work Phone: Comment on above: PATIENT NOT FASTINGP ERFORMED BY: CB [facility] Jfxiuy1677 [facility] [id number] BY: Lab[address] [id number] Information: 609644,[id number] Globulin mass conc (S) 2.3 g/dL Normal 1.5-4.5 Co mprehensive Internal Medicine Work Phone: Comment on above: PATIENT NOT FASTINGP ERFORMED BY: [facility] Disgqb9251 [facility] [id number] BY: [facility] [id number] Information: 448202,[id number] Glucose mass conc 63 mg/dL Abnormal 65-99 Compreh ensive Internal Medicine Work Phone: Comment on above: PATIENT NOT FASTINGP ERFORMED BY: [facility] Btfddh6009 [facility] [id number] BY: [facility] [id number] Information: [id number],[id number] Potassium molar conc 4.2 mmol/L Normal 3.5-5.2 Comp rehensive Internal Medicine Work Phone: Comment on above: PATIENT NOT FASTINGP ERFORMED BY: CB [facility] Hagftb1596 [facility] [id number] BY: [address] [id number] Information: 409215,[id number] Protein mass conc 6.2 g/dL Normal 6.0-8.5 Compreh ensive Internal Medicine Work Phone: Comment on above: PATIENT NOT FASTINGP ERFORMED BY: CB [facility] Kjejek1403 [address] RoadDublin [place] [id number] BY: [facility] [address] [id number] Information: 319398,G49819 Sodium molar conc 143 mmol/L Normal 134-144 Compreh ensive Internal Medicine Work Phone: Comment on above: PATIENT NOT FASTINGP ERFORMED BY: CB [facility] Lgrtzo8540 [address] RoadDublin [place] [id number] BY: [facility] [address] [id number] Information: 177442,G45525 Urea nitrogen mass conc 13 mg/dL Normal 6-24 [facility] Work Phone: Comment on above: PATIENT NOT FASTINGP ERFORMED BY: CB [facility] Xcbkzb6457 [address] [facility] [id number] BY: [address] [id number] Information: 167717,[id number] Urea nitrogen/Creatinine mass ratio 23 mg/mg Normal 9-23 [facility] Work Phone: Comment on above: PATIENT NOT FASTINGP ERFORMED BY: CB [facility] Pekrho8502 [address] [facility] [id number] BY: [facility] [id number] Information: 233604,[id number] PROLACTIN (78848)Ordered By: Warehouse Supervisor on 12-30-2013 Prolactin mass conc 7.4 ng/mL Normal 4.8-23.3 Compr ensive Internal Medicine Work Phone: Comment on above: PATIENT NOT FASTINGP ERFORMED BY: CB [facility] Rflmqn2830 [address] [facility] [place] [id number] BY: [address] [id number] RHEUMATOID FACTOR-QUANT (865 78)Ordered By: Warehouse Supervisor on 12-30-2013 Rheumatoid factor Qn 7.5 {IU/mL} Normal 0.0-13.9 [facility] prehensive Internal Medicine Work Phone: Comment on above: PATIENT NOT FASTINGP ERFORMED BY: LEANN [facility] Rymzre9098 [address] [facility] [id number] BY: [employer] [id number] Rheumatoid factor Qn 7.5 [IU]/mL Normal 0.0-13.9 [facility] prehensive Internal Medicine; [facility] Work Phone: Comment on above: PATIENT NOT FASTINGP ERFORMED BY: LEANN [facility] Odcmdv1305 [facility] [id number] BY: [employer] [id number] SED RATE ERYTHROCYTE (69487) Ordered By: Warehouse Supervisor on 12-30-2013 ESR Velocity (Bld) 2 mm/h Normal 0-40 Compre hensive Internal Medicine Work Phone: Comment on above: PATIENT NOT FASTINGP ERFORMED BY: LEANN [facility] Fnvqeq7079 [facility] [id number] BY: [employer] [address] [id number] T3, FREE (TRIDOTHYRONINE) (0 5361)Ordered By: Warehouse Supervisor on 12-30-2013 T3 free mass conc 3.1 pg/mL Normal 2.0-4.4 Compreh ensive Internal Medicine Work Phone: Comment on above: PATIENT NOT FASTINGP ERFORMED BY: LEANN [facility] Bxacnu9045 [facility] [id number] BY: [address] [id number] T4, FREE (THYROXINE) (90059) Ordered By: Warehouse Supervisor on 12-30-2013 T4 free mass conc 1.29 ng/dL Normal 0.82-1.77 Compreh ensive Internal Medicine Work Phone: Comment on above: PATIENT NOT FASTINGP ERFORMED BY: CB [facility] Ohdtdi7991 [address] RoadDublin [place] [id number] BY: [address] [id number] TESTOSTERONE FREE (55206)Ord ered By: Warehouse Supervisor on 12-30-2013 Testosterone Free mass conc <0.2 Normal 0.0-2.2 [facility] Work Phone: Comment on above: PATIENT NOT FASTINGP ERFORMED BY: CB [facility] Cyrmfr1242 [address] RoadDuin [place] [id number] BY: [employer] [id number] TSH (32073)Ordered By: Noemí m Drying Machine Receiver on 12-30-2013 Thyrotropin Qn 0.858 {uIU/mL} Normal 0.450-4.500 Compr [facility] Internal Medicine Work Phone: Comment on above: PATIENT NOT FASTINGP ERFORMED BY: LEANN [facility] Iintkk0873 [address]illo RoadCrawley [facility] Hospitalin [place] [id number] BY: [employer] [id number] VITAMIN B-12 (CYANOCOBALAMIN ) (67537)Ordered By: Warehouse Supervisor on 12-30-2013 Cobalamin (Vitamin B12) mass conc 453 pg/mL Normal 211-946 [facility] Medicine Work Phone: Comment on above: PATIENT NOT FASTINGP ERFORMED BY: CB [facility] Ouwfdk6647 [address] RoadCrawley Memorial Hospitalin [place] [id number] BY: [employer] [address] [id number] CBCDOrdered By: System Manag er on 04-25-2013 Erythrocyte distribution width Ratio (RBC) 12.2 % Normal 11.6-14.6 [facility] Work Phone: Hematocrit Volume Fraction (Bld) 36.0 % Abnormal 37-47 [facility] Work Phone: Hemoglobin mass conc (Bld) 11.8 g/dL Abnormal 12.0-15.0 [facility] Work Phone: MCH Entitic mass (RBC) 30.9 pg Normal 27.0-32.0 Co mprehensive Internal Medicine Work Phone: MCHC mass conc (RBC) 32.8 g/dL Normal 32-36 Comp rehensive Internal Medicine Work Phone: MCV Entitic volume (RBC) 94.2 fL Normal 81-99 [facility] Work Phone: Platelet mean volume Entitic volume (Bld) 9.7 fL Normal 6.2-12.0 Comprehensi Internal Medicine Work Phone: Platelets #/vol (Bld) 204 10*3/uL Normal 150-450 Co [facility] Internal Medicine Work Phone: RBC #/vol (Bld) 3.82 {M/mm3} Abnormal 4.2-5.4 Compreh ensive Internal Medicine Work Phone: WBC #/vol (Bld) 5.9 {k/mm3} Normal 4.4-11.0 Comprehe nsive Internal Medicine Work Phone: CBCD 41.8 fL Normal 35.1-43.9 [facility] Internal Medicine Work Phone: CBCD 34.9 % Normal 19-41 [facility] Medicine Work Phone: CBCD 8.3 % Normal 0-10 [facility] Medicine Work Phone: CBCD 2.2 % Normal 0-5 [facility] Work Phone: CBCD 54.1 % Normal 47-70 [facility] Medicine Work Phone: CBCD 0.3 % Normal 0-1 [facility] Work Phone: CBCD 0.20 % Normal 0.0-0.9 [facility] Work Phone: Comment on above: IG% - Immature Granu locytes (promyelocytes, myelocytes,metamyelocytes) >1.0% indicates that a LEFT SHIFT ispresent. CBCD 3.2 3/uL Normal 2.0-7.7 [facility] Work Phone: CREOrdered By: System Ganipara r on 04-25-2013 Creatinine mass conc 0.6 mg/dL Normal 0.6-1.0 Comp rehensive Internal Medicine Work Phone: GFR/1.73 sq M predicted among non-blacks MDRD vol rate/area (S/P/Bld) 110 mL/min/{1.73_m2} Normal Compreh ensive Internal Medicine Work Phone: CRE 133 mL/min Normal [facility] Work Phone: LIVEROrdered By: System Saba schuster on 04-25-2013 Albumin mass conc 3.6 g/dL Normal 3.4-5.0 Compreh ensive Internal Medicine Work Phone: ALT enzyme act/vol 30 U/L Normal 12-78 Compre [facility] Internal Medicine Work Phone: AST enzyme act/vol 14 U/L Abnormal 15-37 Compre [facility] Work Phone: Protein mass conc 6.9 g/dL Normal 6.4-8.2 Compreh ensive Internal Medicine Work Phone: LIVER 0.07 mg/dL Normal 0.00-0.30 [facility] Work Phone: LIVER 0.20 mg/dL Normal 0.00-1.00 [facility] Work Phone: LIVER 108 U/L Normal 50-136 [facility] Work Phone: THYROIDOrdered By: System Tati welch on 04-25-2013 THYROID See Note Normal [facility] Work Phone: Comment on above: PROCEDURE: THYROID U LTRASOUND REASON FOR EXAM: Female, 57 years old. Thyromegaly. TECHNIQUE: Ultrasound evaluation of the thyroid was performed withreal-time and static garcia-scale imaging. COMPARISON: None. FINDINGS: RIGHT LOBE: The right lobe of the thyroid gland measures 5.0 cm x 1.7 cmby 1.3 cm. There is a homogeneous echotexture. There is a 3 mm x 2 mmx2 mm hypodense solid/cystic nodule in the midportion of the right lobe ofthe thyroid. LEFT LOBE: The left lobe of the thyroid gland measures 5.0 cm x 1.3 cmby1.1 cm. There is a homogeneous echotexture. There is a 4 mm x 3 mm x 3mmsolid and cystic nodule in the midportion of the lobe. ISTHMUS: The isthmus measures 2.0 mm. IMPRESSION:Subcentimeter bilateral solid and cystic nodules in both lobes of thethyroid. Signed:Jefferson Tuttle M.D.April 25, 2013 at 1:54:56 PM [id number] Signed GP/GP If you are the referring physician and would like to consult with theradiologist who provided this interpretation, please contact Phillip Miranda at [phone]. If this radiologist is unavailable, youwill be directed to another radiologist to assist. If you are a patient with a question regarding this report, pleasecontactyour referring physician directly. Professional Interpretation Provided By: [employer], Phone , These documents contain legally protected and confidential healthinformation intended only for the use of the individual or entity namedabove. If you are not the intended recipient, you are hereby notifiedthatany disclosure, copying, distribution, or other use of these documents isstrictly prohibited. If you have received this information in error,pleasenotify the sender immediately and arrange for the return or destructionofthese documents. Dictated on 04/25/13 1354 by Perla Tuttle MDribed on 04/25/13 1356 by ITS IMPORTSign by Jefferson Tuttle MD on 04/25/13 1357 Sign by: Marry BAKER,Jefferson DANDY (ANTINUCLEAR ANTIBODY) ( 82727)Ordered By: Warehouse Supervisor on 04-23-2013 Nuclear Ab Ql (S) Negative Normal Compreh ensive Internal Medicine Work Phone: Comment on above: PATIENT NOT FASTINGP ERFORMED BY: CB [facility] Vvcsno6406 [address] RoadDublin [place] [id number] Nuclear Ab Ql (S) Negative Normal Compreh ensive Internal Medicine; [facility] Work Phone: Comment on above: PATIENT NOT FASTINGP ERFORMED BY: CB [facility] Rwhhsj5353 [address] RoadDublin [place] [id number] Anti-TPO Antibody (51612)Ord ered By: Warehouse Supervisor on 04-23-2013 Thyroperoxidase Ab Qn 6 {IU/mL} Normal 0-34 Com prehensive Internal Medicine Work Phone: Comment on above: PATIENT NOT FASTINGP ERFORMED BY: CB [facility] Iqheru4983 [address] RoadDublin [place] [id number] TPO Ab Qn 6 [IU]/mL Normal 0-34 [facility]; [facility] Work Phone: Comment on above: PATIENT NOT FASTINGP ERFORMED BY: CB [facility] Siozmc5550 [address] RoadDublin [place] [id number] C-REACTIVE PROTEIN (76906)Or dered By: Warehouse Supervisor on 04-23-2013 CRP mass conc 1.7 mg/L Normal 0.0-4.9 Comprehensi ve Internal Medicine Work Phone: Comment on above: PATIENT NOT FASTINGP ERFORMED BY: CB [facility] Vnsauq0762 [address] RoadDublin [place] [id number] CALCIFIDIOL (12517) VIT D 25 Ordered By: Warehouse Supervisor on 04-23-2013 25-Hydroxyvitamin D2+25-Hydroxyvitamin D3 mass conc 33.4 ng/mL Normal 30.0-100.0 [facility] Work Phone: Comment on above: Vitamin D deficiency has been defined by the [place] ofMedicine and an Endocrine Society practice guideline as alevel of serum 25-OH vitamin D less than 20 ng/mL (1,2).The Endocrine Society went on to further define vitamin Dinsufficiency as a level between 21 and 29 ng/mL (2).1. IOM ([place] of Medicine). 2010. Dietary reference intakes for calcium and D. [place]: The National Academies Press.2. Hiram MF, Gayatri FRITZ, Andre FAGAN, et al. Evaluation, treatment, and prevention of vitamin D deficiency: an Endocrine Society clinical practice guideline. JCEM. 2010; 96(7):1911-30. PATIENT NOT FASTINGP ERFORMED BY: CB [facility] Ncoivr9726 [address] RoadDublin [place] [id number] CBC (AUTO) (24676)Ordered By : Warehouse Supervisor on 04-23-2013 Erythrocyte distribution width Ratio (RBC) 12.9 % Normal 12.3-15.4 [facility] Work Phone: Comment on above: PATIENT NOT FASTINGP ERFORMED BY: CB [facility] Lglxjd6693 [address] RoadDublin [place] [id number] Hematocrit Volume Fraction (Bld) 36.4 % Normal 34.0-46.6 [facility] Work Phone: Comment on above: PATIENT NOT FASTINGP ERFORMED BY: CB [facility] Cfctpj6886 [address] RoadDublin [place] [id number] Hemoglobin mass conc (Bld) 12.2 g/dL Normal 11.1-15.9 [facility] Work Phone: Comment on above: PATIENT NOT FASTINGP ERFORMED BY: CB [facility] Qvhdxc9871 [address] RoadDublin [place] [id number] MCH Entitic mass (RBC) 30.9 pg Normal 26.6-33.0 Co [facility] Internal Medicine Work Phone: Comment on above: PATIENT NOT FASTINGP ERFORMED BY: CB [facility] Jalvnk8171 [address] RoadDublin [place] [id number] MCHC mass conc (RBC) 33.5 g/dL Normal 31.5-35.7 [facility] Internal Medicine Work Phone: Comment on above: PATIENT NOT FASTINGP ERFORMED BY: CB [facility] Asprtg5830 [facility] [id number] MCV Entitic volume (RBC) 92 fL Normal 79-97 [facility] Internal Medicine Work Phone: Comment on above: PATIENT NOT FASTINGP ERFORMED BY: LEANN Ford6370 [facility] [id number] Platelets #/vol (Bld) 230 {x10E3/uL} Normal 140-415 [facility] Work Phone: Comment on above: PATIENT NOT FASTINGP ERFORMED BY: LEANN Ford[address] [facility] [id number] Platelets (Bld) [#/Vol] 230 10*3/uL Normal 140-415 [facility]; [facility] Work Phone: Comment on above: PATIENT NOT FASTINGP ERFORMED BY: LEANN Ignacio Ford6370 [facility] [id number] RBC #/vol (Bld) 3.95 {x10E6/uL} Normal 3.77-5.28 Comp [facility] Internal Medicine Work Phone: Comment on above: PATIENT NOT FASTINGP ERFORMED BY: LEANN Ford6370 [facility] [id number] RBC (Bld) [#/Vol] 3.95 10*6/uL Normal 3.77-5.28 Compr ensive Internal Medicine; [facility] Work Phone: Comment on above: PATIENT NOT FASTINGP ERFORMED BY: LEANN Ford6370 [facility] [id number] WBC #/vol (Bld) 5.5 {x10E3/uL} Normal 4.0-10.5 Compr [facility] Internal Medicine Work Phone: Comment on above: PATIENT NOT FASTINGP ERFORMED BY: LEANN Fernandolin6370 [facility]in [place] [id number] WBC (Bld) [#/Vol] 5.5 10*3/uL Normal 4.0-10.5 Compre [facility] Internal Medicine; [facility] Internal [facility] Work Phone: Comment on above: PATIENT NOT FASTINGP ERFORMED BY: LEANN [facility] Aycoyc6553 [address] RoadDublin [place] [id number] Folate (88575)Ordered By: Sy stem Drying Machine Receiver on 04-23-2013 Folate mass conc ng/mL Normal Comprehe nsive Internal Medicine Work Phone: Comment on above: A serum folate ricky ntration of less than 3.1 ng/mL isconsidered to represent clinical deficiency. PATIENT NOT FASTINGP ERFORMED BY: CB [facility] Eyydtf5829 [address] RoadDublin [place] [id number] METABOLIC PANEL, COMPREHENSI VE (83607)Ordered By: Warehouse Supervisor on 04-23-2013 Albumin mass conc 4.3 g/dL Normal 3.5-5.5 Compreh ensive Internal Medicine Work Phone: Comment on above: PATIENT NOT FASTINGP ERFORMED BY: LEANN [facility] Ktzyhq6742 [address]bl[address] [place] [id number] Information: 147267,X12727 Albumin/Globulin mass ratio 1.8 {ratio} Normal 1.1-2.5 [facility] Work Phone: Comment on above: PATIENT NOT FASTINGP ERFORMED BY: CB [facility] Ypigpj1068 [address] Roadbl[address] [place] [id number] Information: 471124,[id number] ALP [Catalytic activity/Vol] 92 U/L Normal 42-107 [facility]; [facility] Work Phone: Comment on above: PATIENT NOT FASTINGP ERFORMED BY: CB [facility] Kzqtit8180 [address] RoadDublin [place] [id number] Information: 815702,K04603 ALP enzyme act/vol 92 [iU]/L Normal 42-107 Compre [facility] Internal Medicine Work Phone: Comment on above: PATIENT NOT FASTINGP ERFORMED BY: CB [facility] Xsapkt2754 [address] RoadDublin [place] [id number] Information: 183309,[id number] ALT [Catalytic activity/Vol] 23 U/L Normal 0-32 [facility]; [facility] Work Phone: Comment on above: PATIENT NOT FASTINGP ERFORMED BY: LEANN [facility] Jkdelw2525 [address]bl[address] [place] [id number] Information: 162619,U38976 ALT enzyme act/vol 23 [iU]/L Normal 0-32 [facility] Internal Medicine Work Phone: Comment on above: PATIENT NOT FASTINGP ERFORMED BY: CB [facility] Bhftoo8503 [address]bl[address] [place] [id number] Information: 087785,M98938 AST [Catalytic activity/Vol] 23 U/L Normal 0-40 [facility] Internal [facility]; [facility] Internal Medicine Work Phone: Comment on above: PATIENT NOT FASTINGP ERFORMED BY: LEANN [facility] Cyxuub9046 [address] [place] [id number] Information: 057544,H52444 AST enzyme act/vol 23 [iU]/L Normal 0-40 [facility] Internal Medicine Work Phone: Comment on above: PATIENT NOT FASTINGP ERFORMED BY: [facility] Ufkzue0953 [address] [facility]in [place] [id number] Information: 093557,[id number] Bilirubin mass conc 0.2 mg/dL Normal 0.0-1.2 [facility] Internal Medicine Work Phone: Comment on above: PATIENT NOT FASTINGP ERFORMED BY: [facility] Qwdxfm7531 [address] [facility]in [place] [id number] Information: 563513,Q36615 Calcium mass conc 9.5 mg/dL Normal 8.7-10.2 Compreh [facility] Internal Medicine Work Phone: Comment on above: PATIENT NOT FASTINGP ERFORMED BY: LEANN [facility] Mxqaig0146 [address] [facility] Hospitalbl[facility] [place] [id number] Information: 772175,A26634 Chloride molar conc 102 mmol/L Normal 97-108 Compr [facility] Internal Medicine Work Phone: Comment on above: PATIENT NOT FASTINGP ERFORMED BY: [facility] Igbrln0643 [address] [facility] [id number] Information: 761538,C88160 CO2 molar conc 25 mmol/L Normal 19-28 Comprehens [facility] Internal Medicine Work Phone: Comment on above: PATIENT NOT FASTINGP ERFORMED BY: [facility] Nyrtor7354 [facility] [id number] Information: 218400,L70544 Creatinine mass conc 0.52 mg/dL Abnormal 0.57-1.00 Comp rehensive Internal Medicine Work Phone: Comment on above: PATIENT NOT FASTINGP ERFORMED BY: [facility]6370 [facility] [id number] Information: 285439,S14727 GFR/1.73 sq M predicted among blacks CKD-EPI vol rate/area (S/P/Bld) 123 mL/min/1.73 Normal [facility] Work Phone: Comment on above: PATIENT NOT FASTINGP ERFORMED BY: [facility]6370 [facility] [id number] Information: 361167,G99783 GFR/1.73 sq M predicted among non-blacks CKD-EPI vol rate/area (S/P/Bld) 106 mL/min/1.73 Normal Comprehensiv e Internal Medicine Work Phone: Comment on above: PATIENT NOT FASTINGP ERFORMED BY: [facility]6370 [facility] [id number] Information: 405637,B69142 Globulin mass conc (S) 2.4 g/dL Normal 1.5-4.[address] [facility]erens[facility] Internal Medicine Work Phone: Comment on above: PATIENT NOT FASTINGP ERFORMED BY: [facility] Xwpkxj6715 [facility] [id number] Information: 284818,S78307 Glucose mass conc 76 mg/dL Normal 65-99 Compreh ensive Internal Medicine Work Phone: Comment on above: PATIENT NOT FASTINGP ERFORMED BY: LEANN [facility] Qoprxe0393 [facility] [id number] Information: 870354,Y28718 Potassium molar conc 4.6 mmol/L Normal 3.5-5.2 Comp rehensive Internal Medicine Work Phone: Comment on above: PATIENT NOT FASTINGP ERFORMED BY: LabCoBacharach Institute for RehabilitationHbtfzd7259 [facility] [id number] Information: 913044,E62654 Protein mass conc 6.7 g/dL Normal 6.0-8.5 Compreh ensive Internal Medicine Work Phone: Comment on above: PATIENT NOT FASTINGP ERFORMED BY: LEANN LabCoBacharach Institute for RehabilitationRaxwza4769 [facility] [id number] Information: 513072,O16603 Sodium molar conc 140 mmol/L Normal 134-144 Compreh ensive Internal Medicine Work Phone: Comment on above: PATIENT NOT FASTINGP ERFORMED BY: LabCoBacharach Institute for RehabilitationLssspb9038 [facility] [id number] Information: 022617,[id number] Urea nitrogen mass conc 14 mg/dL Normal 6-24 [facility] Work Phone: Comment on above: PATIENT NOT FASTINGP ERFORMED BY: LabAsc[facility]6370 [facility] [id number] Information: 504062,J91045 Urea nitrogen/Creatinine mass ratio 27 mg/mg Abnormal 9-23 [facility] Work Phone: Comment on above: PATIENT NOT FASTINGP ERFORMED BY: LabCoJulie Ville 6482770 [facility] [id number] Information: 763787,N63970 RHEUMATOID FACTOR-QUANT (868 52)Ordered By: Warehouse Supervisor on 04-23-2013 Rheumatoid factor Qn 9.3 {IU/mL} Normal 0.0-13.9 [facility] prehensive Internal Medicine Work Phone: Comment on above: PATIENT NOT FASTINGP ERFORMED BY: [facility] Lgmzod2771 [address] [facility] [id number] Rheumatoid factor Qn 9.3 [IU]/mL Normal 0.0-13.9 Com prehensive Internal Medicine; [facility] Work Phone: Comment on above: PATIENT NOT FASTINGP ERFORMED BY: LEANN [facility] Qyyqaz9426 [address] [facility] Hospitalbl[facility] [place] [id number] SED RATE ERYTHROCYTE (19344) Ordered By: Warehouse Supervisor on 04-23-2013 ESR Velocity (Bld) 2 mm/h Normal 0-40 Compre [facility] Internal Medicine Work Phone: Comment on above: PATIENT NOT FASTINGP ERFORMED BY: [facility] Idiiip5275 [address] [facility]in [place] [id number] T3, FREE (TRIDOTHYRONINE) (7 2389)Ordered By: Warehouse Supervisor on 04-23-2013 T3 free mass conc 3.4 pg/mL Normal 2.0-4.4 Compreh ensive Internal Medicine Work Phone: Comment on above: PATIENT NOT FASTINGP ERFORMED BY: [facility] [id number] [address] [facility] [place] [id number] T4, FREE (THYROXINE) ([id number]) Ordered By: Warehouse Supervisor on 04-23-2013 T4 free mass conc 1.09 ng/dL Normal 0.82-1.77 [facility] ens[facility] Work Phone: Comment on above: PATIENT NOT FASTINGP ERFORMED BY: [facility] [id number] [facility] [id number] TSH ([id number])Ordered By: Syste m Drying Machine Receiver on 04-23-2013 Thyrotropin Qn 1.350 {uIU/mL} Normal 0.450-4.500 Compr ehensive [facility] Medicine Work Phone: Comment on above: PATIENT NOT FASTINGP ERFORMED BY: [facility] [id number] Carr[address] [facility] Hospitalin [place] [id number] VITAMIN B-12 (CYANOCOBALAMIN ) ([id number])Ordered By: Warehouse Supervisor on 04-23-2013 Cobalamin (Vitamin B12) mass conc 447 pg/mL Normal 211-946 [facility] Work Phone: Comment on above: PATIENT NOT FASTINGP ERFORMED BY: [facility] [id number] [place] [place] [id number] ZIOrdered By: Warehouse Supervisor on 12-07-2011 ZI 68 ug/dL Abnormal 70-150 [facility] Work Phone: Comment on above: Detection Limit = 5P erformed at: [facility] Lab[address] [id number] Director: Yadiel Garcia MD, Phone: [phone] tGLUPOrdered By: System Saba landen on 12-07-2011 tGLUP 102 mg/dL Normal [facility] Work Phone: Comment on above: GLU,2HPPG 75gm GLUC PPG GLUP from 0315:[id number]. ANAOrdered By: System Manage r on 12-04-2011 Nuclear Ab IF titer (S) 58 AU/mL Normal [facility] Work Phone: Nuclear Ab IF titer (S) Normal [facility] Work Phone: Comment on above: TESTING INTERPRETATI ONSPOSITIVE: > 120EQUIVOCAL: 100 - 120NEGATIVE: < 100 [id number] By: System Ganipara r on 12-04-2011 Cobalamin (Vitamin B12) mass conc 449 pg/mL Normal 254-1320 [facility] Work Phone: Comment on above: There is a low frequ ency possibility that high titers ofintrinsic blocking antibodies may not be completely inactivated during the reaction pretreatment stepof this testing method. If test results are in conflictwith the clinical diagnosis, patient should be testedfor the presence of intrinsic factor blocking antibodies. CBCDOrdered By: System Manag er on 12-04-2011 Basophils/100 WBC (Bld) 0.6 % Normal 0-1 [facility] Work Phone: Eosinophils/100 WBC (Bld) 2.8 % Normal 0-5 [facility] Work Phone: Erythrocyte distribution width Ratio (RBC) 13.0 % Normal 11.6-14.6 [facility] Work Phone: Hematocrit Volume Fraction (Bld) 36.5 % Abnormal 37-47 [facility] Work Phone: Hemoglobin mass conc (Bld) 12.3 g/dL Normal 12.0-16.0 [facility] Work Phone: Lymphocytes/100 WBC (Bld) 33.0 % Normal 19-41 [facility] Work Phone: MCH Entitic mass (RBC) 31.9 pg Normal 27.0-32.0 Co m[facility] Work Phone: MCHC mass conc (RBC) 33.8 g/dL Normal 32-36 Comp rehensive Internal Medicine Work Phone: MCV Entitic volume (RBC) 94.4 fL Normal 81-99 [facility] Work Phone: Monocytes/100 WBC (Bld) 5.4 % Normal 0-10 [facility] Internal Medicine Work Phone: Neutrophils #/vol (Bld) 4.5 3/uL Normal 2.0-7.7 [facility] Internal Medicine Work Phone: Neutrophils/100 WBC (Bld) 58.2 % Normal 47-70 [facility] Internal Medicine Work Phone: Platelet mean volume Entitic volume (Bld) 9.2 fL Normal 6.5-12.0 Comprehensi ve Internal Medicine Work Phone: Platelets #/vol (Bld) 261 10*3/uL Normal 150-450 [facility] Work Phone: RBC #/vol (Bld) 3.86 {M/mm3} Abnormal 4.2-5.4 Compre[facility] ens[facility] Work Phone: WBC #/vol (Bld) 7.7 10*3/uL Normal 4.4-11.0 Comprehe nsive Internal Medicine Work Phone: CMPOrdered By: System Manage r on 12-04-2011 Albumin mass conc 4.0 g/dL Normal 3.4-5.0 Compre[facility] ens[facility] Work Phone: Comment on above: appt 12-11-11 Albumin/Globulin mass ratio 1.2 {RATIO} Normal 0.9-2.4 [facility] Internal Medicine Work Phone: Comment on above: appt 12-11-11 ALP enzyme act/vol 95 U/L Normal 50-136 [facility] Internal Medicine Work Phone: Comment on above: appt 12-11-11 ALT enzyme act/vol 22 U/L Normal 12-78 [facility] Internal Medicine Work Phone: Comment on above: appt 12-11-11 Anion gap molar conc 9 mmol/L Normal 5-15 [facility] Internal Medicine Work Phone: Comment on above: appt 12-11-11 AST enzyme act/vol 9 U/L Abnormal 15-37 [facility] Internal Medicine Work Phone: Comment on above: appt 12-11-11 Bilirubin mass conc 0.20 mg/dL Normal 0.00-1.00 [facility] Internal Medicine Work Phone: Comment on above: appt 12-11-11 Calcium mass conc 8.8 mg/dL Normal 8.5-10.1 [facility] Internal Medicine Work Phone: Comment on above: appt 12-11-11 Chloride molar conc 103 mmol/L Normal 98-107 [facility] Internal Medicine Work Phone: Comment on above: appt 12-11-11 CO2 molar conc 28.0 mmol/L Normal 21.0-32.0 [facility] Internal Medicine Work Phone: Comment on above: appt 12-11-11 Creatinine mass conc 0.5 mg/dL Abnormal 0.6-1.0 [facility] Internal Medicine Work Phone: Comment on above: appt 12-11-11 GFR/1.73 sq M predicted among blacks MDRD vol rate/area (S/P/Bld) 165 mL/min/{1.73_m2} Normal [facility] Internal Medicine Work Phone: Comment on above: appt 12-11-11 GFR/1.73 sq M.predicted MDRD vol rate/area 136 mL/min/{1.73_m2} Normal Comprehensi ve Internal Medicine Work Phone: Comment on above: appt 12-11-11 Globulin mass conc (S) 3.4 g/dL Normal 2.7-4.2 [facility] Work Phone: Comment on above: appt 12-11-11 Glucose mass conc 85 mg/dL Normal 70-110 Compre[facility] ens[facility] Work Phone: Comment on above: appt 12-11-11 Potassium molar conc 4.0 mmol/L Normal 3.5-5.1 Comp rehensive Internal Medicine Work Phone: Comment on above: appt 12-11-11 Protein mass conc 7.4 g/dL Normal 6.4-8.2 Compre[facility] ens[facility] Work Phone: Comment on above: appt 12-11-11 Sodium molar conc 140 mmol/L Normal 136-145 Compre[facility] ens[facility] Work Phone: Comment on above: appt 12-11-11 Urea nitrogen mass conc 11 mg/dL Normal 7-18 [facility] Work Phone: Comment on above: appt 12-11-11 Urea nitrogen/Creatinine mass ratio 22.0 {RATIO} Abnormal 10-20 [facility] Work Phone: Comment on above: appt 12-11-11 CRPOrdered By: System Manage r on 12-04-2011 CRP mass conc mg/L Normal 0.0-3.0 Comprehensi ve [facility] Work Phone: Comment on above: C-Reactive Protein ( CRP) provides useful information for thediagnosis, therapy and monitoring of inflammatory processesand associated diseases. For the evaluation of Relative Riskfor Cardiovascular Disease, a High Sensitivity CRP (HSCRP)should be ordered. SEDOrdered By: System Manage r on 12-04-2011 ESR Velocity (Bld) 13 mm/h Normal 0-30 [facility] Work Phone: TSHOrdered By: System Manage r on 12-04-2011 Thyrotropin Qn 1.63 {uIU/mL} Normal 0.358-3.74 Compreh ensive [facility] Work Phone: BMPOrdered By: System Manage r on 06-26-2011 Anion gap molar conc 5 mmol/L Normal 5-15 Comp rehensive Internal Medicine Work Phone: Calcium mass conc 9.2 mg/dL Normal 8.5-10.1 Compreh ensive [facility] Work Phone: Chloride molar conc 102 mmol/L Normal 98-107 Compr ehensive Internal Medicine Work Phone: CO2 molar conc 32.0 mmol/L Normal 21.0-32.0 Comprehen sive Internal Medicine Work Phone: Creatinine mass conc 0.8 mg/dL Normal 0.6-1.0 Comp rehensive Internal Medicine Work Phone: GFR/1.73 sq M predicted among blacks MDRD vol rate/area (S/P/Bld) 96 mL/min/{1.73_m2} Normal Comprehensiv e Internal Medicine Work Phone: GFR/1.73 sq M.predicted MDRD vol rate/area 79 mL/min/{1.73_m2} Normal Comprehensiv e Internal Medicine Work Phone: Glucose mass conc 170 mg/dL Abnormal 70-110 Compreh ensive [facility] Work Phone: Comment on above: Fasting Glucose resu lt greater than or equal to 126 mg/dL suggests DIABETES MELLITUS per A.D.A. criteria. Potassium molar conc 3.6 mmol/L Normal 3.5-5.1 Comp rehensive Internal Medicine Work Phone: Sodium molar conc 139 mmol/L Normal 136-145 Compreh ensive [facility] Work Phone: Urea nitrogen mass conc 18 mg/dL Normal 7-18 [facility] Work Phone: Urea nitrogen/Creatinine mass ratio 22.5 {RATIO} Abnormal 10-20 [facility] Work Phone: CBCD,SMEAR DIFFOrdered By: S ystem Drying Machine Receiver on 06-26-2011 Erythrocyte distribution width Ratio (RBC) 13.4 % Normal 11.6-14.6 [facility] Work Phone: Hematocrit Volume Fraction (Bld) 37.0 % Normal 37-47 [facility] Work Phone: Hemoglobin mass conc (Bld) 12.4 g/dL Normal 12.0-16.0 [facility] Internal Medicine Work Phone: Lymphocytes/100 WBC (Bld) 23 % Normal 19-41 [facility] Internal Medicine Work Phone: MCH Entitic mass (RBC) 31.7 pg Normal 27.0-32.0 [facility] Internal Medicine Work Phone: MCHC mass conc (RBC) 33.5 g/dL Normal 32-36 [facility] Internal Medicine Work Phone: MCV Entitic volume (RBC) 94.7 fL Normal 81-99 [facility] Internal Medicine Work Phone: Monocytes/100 WBC (Bld) 5 % Normal 0-10 [facility] Internal Medicine Work Phone: Neutrophils #/vol (Bld) 5.1 3/uL Normal 2.0-7.7 [facility] Internal Medicine Work Phone: Platelets #/vol (Bld) 241 10*3/uL Normal 150-450 [facility] Medicine Work Phone: Platelets #/vol (Bld) SeeNote Normal [facility] Internal Medicine Work Phone: Comment on above: Result: ADEQUATE RBC #/vol (Bld) 3.91 {M/mm3} Abnormal 4.2-5.4 [facility] Work Phone: WBC #/vol (Bld) 8.1 10*3/uL Normal 4.4-11.0 [facility] Work Phone: CBCD,SMEAR DIFF SeeNote Normal [facility] Work Phone: Comment on above: Result: NORM C+C CBCD,SMEAR DIFF 100 1 Normal [facility] Work Phone: CBCD,SMEAR DIFF 72 % Abnormal 47-70 [facility] Work Phone: RETICOrdered By: Oc Sabarosemarie schuster on 06-26-2011 RETIC 0.97 % Normal 0.5-1.5 [facility] Work Phone: Urinalysis, Office ([id number])Or dered By: Fang Rivera on 06-26-2011 Bilirubin Ql (U) Negative Normal Comprehe nsive [facility] Medicine Work Phone: Bilirubin Ql (U) Negative Normal Comprehe nsive [facility]; [facility] Work Phone: Glucose Test strip (U) [Mass/Vol] Negative Normal [facility]; [facility] Work Phone: Glucose Test strip mass conc (U) Negative Normal [facility] Work Phone: Hemoglobin Ql (U) Hemolyzed Trace Normal Co [facility] Work Phone: Ketones Ql (U) Negative Normal [facility] Work Phone: Ketones Ql (U) Negative Normal [facility]; [facility] Work Phone: Leukocyte esterase Test strip Ql (U) Small Normal [facility] Work Phone: Nitrite Ql (U) Negative Normal [facility] Work Phone: Nitrite Ql (U) Negative Normal [facility]; [facility] Work Phone: pH (U) 6.0 [pH] Normal [facility] Work Phone: Protein Ql (U) Negative Normal [facility] Work Phone: Protein Ql (U) Negative Normal [facility]; [facility] Work Phone: Specific gravity Relative Density (U) 1.025 1 Normal Comprehensi ve [facility] Work Phone: Urobilinogen mass/time (24H U) 2 mg/dL Normal [facility] Work Phone: CULTURE, URINEOrdered By: Robb stem Drying Machine Receiver on 06-20-2011 Bacteria identified Cx Nom (U) See Note Normal [facility] Work Phone: Comment on above: PREDOMINANTLY Presum ptive E. coliBELOW INFECTION LEVEL If further studies are desired, please contact theMicrobiology Laboratory within 48 hours. RESULTS FAXED TO DR CADET 06/23/11 5517 JORDAN CONTEH COLONY COUNT <1000 Urinalysis, Office ([id number])Or dered By: Jyoti Elizondo on 06-19-2011 Bilirubin Ql (U) Negative Normal Comprehe nsive Internal Medicine Work Phone: Bilirubin Ql (U) Negative Normal Comprehe nsive [facility]; [facility] Work Phone: Glucose Test strip (U) [Mass/Vol] Negative Normal [facility]; [facility] Work Phone: Glucose Test strip mass conc (U) Negative Normal [facility] Work Phone: Hemoglobin Ql (U) Non Hemolyzed Trace Normal [facility] Work Phone: Ketones Ql (U) Negative Normal [facility] Work Phone: Ketones Ql (U) Negative Normal [facility]; [facility] Work Phone: Leukocyte esterase Test strip Ql (U) Small Normal [facility] Work Phone: Nitrite Ql (U) Negative Normal [facility] Work Phone: Nitrite Ql (U) Negative Normal [facility]; [facility] Work Phone: pH (U) 7.0 [pH] Normal [facility] Work Phone: Protein Ql (U) Negative Normal [facility] Work Phone: Protein Ql (U) Negative Normal [facility]; [facility] Work Phone: Specific gravity Relative Density (U) 1.015 1 Normal Comprehensi ve [facility] Work Phone: Urobilinogen mass/time (24H U) Normal Normal [facility] Work Phone: CBCD,SMEAR DIFFOrdered By: S ystem Drying Machine Receiver on 01-07-2011 Eosinophils/100 WBC (Bld) 4 % Normal 0-5 [facility] Work Phone: Comment on above: CBCD WITH PERIPHERAL SMEAR Erythrocyte distribution width Ratio (RBC) 12.8 % Normal 11.6-14.6 [facility] Work Phone: Comment on above: CBCD WITH PERIPHERAL SMEAR Hematocrit Volume Fraction (Bld) 35.3 % Abnormal 37-47 [facility] Work Phone: Comment on above: CBCD WITH PERIPHERAL SMEAR Hemoglobin mass conc (Bld) 11.9 g/dL Abnormal 12.0-16.0 [facility] Work Phone: Comment on above: CBCD WITH PERIPHERAL SMEAR Lymphocytes/100 WBC (Bld) 43 % Abnormal 19-41 [facility] Work Phone: Comment on above: CBCD WITH PERIPHERAL SMEAR MCH Entitic mass (RBC) 32.3 pg Abnormal 27.0-32.0 [facility] Internal Medicine Work Phone: Comment on above: CBCD WITH PERIPHERAL SMEAR MCHC mass conc (RBC) 33.8 g/dL Normal 32-36 [facility] Internal Medicine Work Phone: Comment on above: CBCD WITH PERIPHERAL SMEAR MCV Entitic volume (RBC) 95.5 fL Normal 81-99 [facility] Internal Medicine Work Phone: Comment on above: CBCD WITH PERIPHERAL SMEAR Monocytes/100 WBC (Bld) 8 % Normal 0-10 [facility] Internal Medicine Work Phone: Comment on above: CBCD WITH PERIPHERAL SMEAR Neutrophils #/vol (Bld) 2.3 3/uL Normal 2.0-7.7 [facility] Internal Medicine Work Phone: Comment on above: CBCD WITH PERIPHERAL SMEAR Platelets #/vol (Bld) SeeNote Normal [facility] Internal Medicine Work Phone: Comment on above: Result: ADEQUATE CBCD WITH PERIPHERAL SMEAR Platelets #/vol (Bld) 189 10*3/uL Normal 150-450 [facility] Internal Medicine Work Phone: Comment on above: CBCD WITH PERIPHERAL SMEAR RBC #/vol (Bld) 3.70 {M/mm3} Abnormal 4.2-5.4 [facility]pre[facility] Internal Medicine Work Phone: Comment on above: CBCD WITH PERIPHERAL SMEAR WBC #/vol (Bld) 4.4 10*3/uL Normal 4.4-11.0 [facility] Internal Medicine Work Phone: Comment on above: CBCD WITH PERIPHERAL SMEAR CBCD,SMEAR DIFF SeeNote Normal [facility] Internal Medicine Work Phone: Comment on above: Result: NORM C+C CBCD WITH PERIPHERAL SMEAR CBCD,SMEAR DIFF 100 1 Normal [facility] Internal Medicine Work Phone: Comment on above: CBCD WITH PERIPHERAL SMEAR CBCD,SMEAR DIFF 45 % Abnormal 47-70 [facility] Internal Medicine Work Phone: Comment on above: CBCD WITH PERIPHERAL SMEAR RETICOrdered By: Oc schuster on 01-07-2011 RETIC 1.41 % Normal 0.5-1.5 [facility] Internal Medicine Work Phone: Comment on above: CBCD WITH PERIPHERAL SMEAR CBCD,SMEAR DIFFOrdered By: Leif tai Drying Machine Receiver on 12-29-2010 Band form neutrophils/100 WBC (Bld) 4 % Normal 0-5 [facility] Internal Medicine Work Phone: Erythrocyte distribution width Ratio (RBC) 12.7 % Normal 11.6-14.6 [facility] Internal Medicine Work Phone: Hematocrit Volume Fraction (Bld) 34.7 % Abnormal 37-47 [facility] Internal Medicine Work Phone: Hemoglobin mass conc (Bld) 12.1 g/dL Normal 12.0-16.0 [facility] Internal Medicine Work Phone: Lymphocytes/100 WBC (Bld) 37 % Normal 19-41 [facility] Internal Medicine Work Phone: MCH Entitic mass (RBC) 32.5 pg Abnormal 27.0-32.0 [facility] Work Phone: MCHC mass conc (RBC) 34.8 g/dL Normal 32-36 [facility] Internal Medicine Work Phone: MCV Entitic volume (RBC) 93.5 fL Normal 81-99 [facility] Work Phone: Monocytes/100 WBC (Bld) 5 % Normal 0-10 [facility] Work Phone: Neutrophils #/vol (Bld) 2.6 3/uL Normal 2.0-7.7 [facility] Work Phone: Platelets #/vol (Bld) SeeNote Normal Com prehensive Internal Medicine Work Phone: Comment on above: Result: ADEQUATE Platelets #/vol (Bld) 209 10*3/uL Normal 150-450 Co mprehensive [facility] Work Phone: RBC #/vol (Bld) 3.71 {M/mm3} Abnormal 4.2-5.4 Compreh ensive Internal Medicine Work Phone: WBC #/vol (Bld) 4.8 10*3/uL Normal 4.4-11.0 Comprehe nsive Internal Medicine Work Phone: CBCD,SMEAR DIFF 100 1 Normal [facility] Internal Medicine Work Phone: CBCD,SMEAR DIFF 54 % Normal 47-70 [facility]pre[facility] Internal Medicine Work Phone: COMP METABOLICOrdered By: Robb stem Drying Machine Receiver on 12-29-2010 Albumin mass conc 3.6 g/dL Normal 3.4-5.0 Compreh ensive Internal Medicine Work Phone: Albumin/Globulin mass ratio 1.1 {RATIO} Normal 0.9-2.4 [facility] Work Phone: ALP enzyme act/vol 58 U/L Normal 50-136 Compre [facility] Internal Medicine Work Phone: ALT enzyme act/vol 22 U/L Normal 12-78 Compre [facility] Internal Medicine Work Phone: Anion gap molar conc 6 mmol/L Normal 5-15 Comp rehensive Internal Medicine Work Phone: AST enzyme act/vol 16 U/L Normal 15-37 [facility] Work Phone: Bilirubin mass conc 0.30 mg/dL Normal 0.00-1.00 Compr ehensive Internal Medicine Work Phone: Calcium mass conc 8.9 mg/dL Normal 8.5-10.1 Compreh ensive Internal Medicine Work Phone: Chloride molar conc 107 mmol/L Normal 98-107 Compr ehensive Internal Medicine Work Phone: CO2 molar conc 28.0 mmol/L Normal 21.0-32.0 Comprehen sive Internal Medicine Work Phone: Creatinine mass conc 0.8 mg/dL Normal 0.6-1.0 Comp rehensive Internal Medicine Work Phone: GFR/1.73 sq M predicted among blacks MDRD vol rate/area (S/P/Bld) 96 mL/min/{1.73_m2} Normal Comprehensiv e Internal Medicine Work Phone: GFR/1.73 sq M.predicted MDRD vol rate/area 79 mL/min/{1.73_m2} Normal Comprehensiv e Internal Medicine Work Phone: Globulin mass conc (S) 3.2 g/dL Normal 2.7-4.2 [facility] Work Phone: Glucose mass conc 95 mg/dL Normal 70-110 Compreh ensive Internal Medicine Work Phone: Potassium molar conc 4.2 mmol/L Normal 3.5-5.1 Comp rehensive Internal Medicine Work Phone: Protein mass conc 6.8 g/dL Normal 6.4-8.2 Compreh ensive Internal Medicine Work Phone: Sodium molar conc 141 mmol/L Normal 136-145 Compreh ensive [facility] Work Phone: Urea nitrogen mass conc 16 mg/dL Normal 7-18 [facility] Work Phone: Urea nitrogen/Creatinine mass ratio 20.0 {RATIO} Normal 10-20 [facility] Work Phone: ESROrdered By: System Manage r on 12-29-2010 ESR Velocity (Bld) 10 mm/h Normal 0-30 Compre hensive Internal Medicine Work Phone: RETICOrdered By: System Saba landen on 12-29-2010 RETIC 0.23 % Abnormal 0.5-1.5 [facility] Work Phone: ROUTINE UAOrdered By: Warehouse Supervisor on 12-29-2010 Clarity Nom (U) SeeNote Normal Comprehen sive Internal Medicine Work Phone: Comment on above: Result: SL CLOUDY Color Nom (U) YELLOW Normal Comprehensi ve Internal Medicine Work Phone: Glucose mass conc SeeNote Normal Compreh ensive Internal Medicine Work Phone: Comment on above: Result: NEGATIVE Protein mass conc SeeNote Normal Compreh ensive [facility] Medicine Work Phone: Comment on above: Result: NEGATIVE ROUTINE UA SeeNote Normal [facility] Work Phone: Comment on above: Result: NEGATIVE Result: NORM C+C Result: TRACE-LYSED ROUTINE UA 0.2 EU/dl Normal 0.2 - 1.0 [facility] Work Phone: ROUTINE UA 5.5 1 Normal 5.0-8.0 [facility] Work Phone: ROUTINE UA >=1.030 Normal 1.002-1.030 [facility] Work Phone: VIT D,25 [id number] By: EMBI stem Drying Machine Receiver on 12-29-2010 VIT D,25 28338 49.9 ng/mL Normal 32.0-100.0 [facility] Work Phone: Comment on above: Recent studies consi juan the lower limit of 32.0 ng/mL to amber threshold for optimal health.Tushar SAENZ. J Nutr. 2004;135(2):317-22.Performed at: [address] [id number] Director: Manju Drummond MD, Phone: [phone] B12/FOLATESOrdered By: Noemí sanderson Drying Machine Receiver on 07-24-2009 Cobalamin (Vitamin B12) mass conc 409 pg/mL Normal 254-1320 [facility] Work Phone: Folate mass conc 44.50 ng/mL Abnormal 3.1-17.5 Compreh ensive Internal Medicine Work Phone: CBCDOrdered By: System Manag er on 07-24-2009 Basophils/100 WBC (Bld) 0.4 % Normal 0-1 [facility] Work Phone: Eosinophils/100 WBC (Bld) 1.9 % Normal 0-5 [facility] Work Phone: Erythrocyte distribution width Ratio (RBC) 13.3 % Normal 11.6-14.6 [facility] Work Phone: Hematocrit Volume Fraction (Bld) 35.9 % Abnormal 37-47 [facility] Work Phone: Hemoglobin mass conc (Bld) 11.7 g/dL Abnormal 12.0-16.0 [facility] Work Phone: Lymphocytes/100 WBC (Bld) 28.4 % Normal 19-41 [facility] Work Phone: MCH Entitic mass (RBC) 30.9 pg Normal 27.0-32.0 [facility] Work Phone: MCHC mass conc (RBC) 32.7 g/dL Normal 32-36 [facility] Internal Medicine Work Phone: MCV Entitic volume (RBC) 94.5 fL Normal 81-99 [facility] Internal Medicine Work Phone: Monocytes/100 WBC (Bld) 5.1 % Normal 0-10 [facility] Work Phone: Neutrophils #/vol (Bld) 3.5 3/uL Normal 2.0-7.7 [facility] Internal Medicine Work Phone: Neutrophils/100 WBC (Bld) 64.2 % Normal 47-70 [facility] Work Phone: Platelet mean volume Entitic volume (Bld) 9.0 fL Normal 6.5-12.0 Comprehensi Internal Medicine Work Phone: Platelets #/vol (Bld) 234 10*3/uL Normal 150-[address] [facility] Work Phone: RBC #/vol (Bld) 3.80 {M/mm3} Abnormal 4.2-5.4 Compreh ensive Internal Medicine Work Phone: WBC #/vol (Bld) 5.4 10*3/uL Normal 4.4-11.0 Comprehe nsive Internal Medicine Work Phone: DIRECT TERESA=Ordered By: Sy stem Drying Machine Receiver on 07-24-2009 DIRECT TERESA= NEG w/POLYSPECIFIC Normal [facility] Work Phone: FERRITINOrdered By: System Tr raymond on 07-24-2009 Ferritin mass conc 76 ng/mL Normal 8-252 Compre hensive Internal Medicine Work Phone: HAPTOGLOB 1628Ordered By: EMBI stem Drying Machine Receiver on 07-24-2009 HAPTOGLOB 1628 174 mg/dL Normal 34-200 [facility] Work Phone: Comment on above: Performed At: [address] [id number] At: [facility] [place], [place] [id number] IRON+TIBCOrdered By: Warehouse Supervisor on 07-24-2009 Iron binding capacity mass conc 280 ug/dL Normal 250-450 [facility] Work Phone: Iron mass conc 123 ug/dL Normal 50-170 [facility] Work Phone: IRON+TIBC 43.9 % Normal 15.0-55.0 [facility] Work Phone: LDHOrdered By: System Manage r on 07-24-2009 LDH enzyme act/vol 115 U/L Normal 100-190 Compre hensive [facility] Work Phone: LIPIDOrdered By: System Saba schuster on 07-24-2009 Cholesterol in HDL mass conc 43 mg/dL Normal [facility] Work Phone: Comment on above: Reference Range HDL <40 mg/dL Low HDL Cholesterol HDL >or= 60 mg/dL High HDL Cholesterol Cholesterol in LDL mass conc 132 mg/dL Abnormal 0-130 [facility] Work Phone: Cholesterol in VLDL mass conc 19 mg/dL Normal 5-40 [facility] Work Phone: Cholesterol mass conc 194 mg/dL Normal Com prehensive [facility] Medicine Work Phone: Comment on above: <200 mg/dL Desirable 200-240 mg/dL Borderline >240 mg/dL High Risk Triglyceride mass conc 93 mg/dL Normal Co mprehensive [facility] Work Phone: Comment on above: Serum Triglycerides Reference Interval Normal <150 mg/dL Borderline high 150 - 199 mg/dL High 200 - 499 mg/dL Very High > or = 500 mg/dL METHYLM [id number] By: EMBI stem Drying Machine Receiver on 07-24-2009 METHYLM [id number] 248 nmol/L Normal 73-376 [facility] Work Phone: Comment on above: The reference range for methylmalonic acid has been set at+3sd above the mean for healthy blood bank donors. In theclinical assessment of patients with megaloblastic anemiasa cutoff of +3sd provides greater specificity in thediagnosis of the vitamin deficiency states, despite thesacrifice of some sensitivity. RETICOrdered By: System Saba landen on 07-24-2009 RETIC 0.42 % Abnormal 0.5-1.5 [facility] Work Phone: CBCDOrdered By: System Manag er on 04-14-2009 Basophils/100 WBC (Bld) 0.5 % Normal 0-1 [facility] Work Phone: Eosinophils/100 WBC (Bld) 1.4 % Normal 0-5 [facility] Work Phone: Erythrocyte distribution width Ratio (RBC) 12.7 % Normal 11.6-14.6 [facility] Work Phone: Hematocrit Volume Fraction (Bld) 36.2 % Abnormal 37-47 [facility] Work Phone: Hemoglobin mass conc (Bld) 12.5 g/dL Normal 12.0-16.0 [facility] Work Phone: Lymphocytes/100 WBC (Bld) 27.6 % Normal 19-41 [facility] Work Phone: MCH Entitic mass (RBC) 31.6 pg Normal 27.0-32.0 Co m[facility] Work Phone: MCHC mass conc (RBC) 34.6 g/dL Normal 32-36 Comp rehensive [facility] Medicine Work Phone: MCV Entitic volume (RBC) 91.6 fL Normal 81-99 [facility] Work Phone: Monocytes/100 WBC (Bld) 6.7 % Normal 0-10 [facility] Work Phone: Neutrophils/100 WBC (Bld) 63.8 % Normal 47-70 [facility] Work Phone: Platelet mean volume Entitic volume (Bld) 9.1 fL Normal 6.5-12.0 Comprehensi ve [facility] Work Phone: Platelets #/vol (Bld) 247 10*3/uL Normal 150-450 Co [facility] Work Phone: RBC #/vol (Bld) 3.95 {M/mm3} Abnormal 4.2-5.4 Compreh ensive [facility] Work Phone: WBC #/vol (Bld) 7.3 10*3/uL Normal 4.4-11.0 Comprehe nsive [facility] Work Phone: DANDY-D [id number] By: Syst em Drying Machine Receiver on 02-01-2009 Nuclear Ab Ql (S) SeeNote Normal Compreh ensive [facility] Work Phone: Comment on above: Result: Negative Per formed At: [facility] [id number] [place], [place] [id number] C-REACTIVE PROTOrdered By: Leif tai Drying Machine Receiver on 02-01-2009 CRP mass conc mg/L Normal 0.0-3.0 Comprehensi ve [facility] Work Phone: Comment on above: C-Reactive Protein ( CRP) provides useful information for thediagnosis, therapy and monitoring of inflammatory processesand associated diseases. For the evaluation of Relative Riskfor Cardiovascular Disease, a High Sensitivity CRP (HSCRP)should be ordered. CBCD,SMEAR DIFFOrdered By: Leif tai Drying Machine Receiver on 02-01-2009 Band form neutrophils/100 WBC (Bld) 1 % Normal 0-5 [facility] Work Phone: Eosinophils/100 WBC (Bld) 2 % Normal 0-5 [facility] Medicine Work Phone: Erythrocyte distribution width Ratio (RBC) 12.9 % Normal 11.6-14.6 [facility] Work Phone: Hematocrit Volume Fraction (Bld) 34.9 % Abnormal 37-47 [facility] Work Phone: Hemoglobin mass conc (Bld) 11.6 g/dL Abnormal 12.0-16.0 [facility] Work Phone: Lymphocytes/100 WBC (Bld) 24 % Normal 19-41 [facility] Work Phone: MCH Entitic mass (RBC) 31.6 pg Normal 27.0-32.0 [facility] Work Phone: MCHC mass conc (RBC) 33.1 g/dL Normal 32-36 Comp [facility] Internal Medicine Work Phone: MCV Entitic volume (RBC) 95.5 fL Normal 81-99 [facility] Medicine Work Phone: Platelets #/vol (Bld) 250 10*3/uL Normal 150-450 [facility] Work Phone: Platelets #/vol (Bld) SeeNote Normal [facility] Work Phone: Comment on above: Result: ADEQUATE RBC #/vol (Bld) 3.66 {M/mm3} Abnormal 4.2-5.4 Compreh ensive Internal Medicine Work Phone: WBC #/vol (Bld) 7.2 10*3/uL Normal 4.4-11.0 Comprehe nsive Internal Medicine Work Phone: CBCD,SMEAR DIFF 100 1 Normal Compre[facility] Internal Medicine Work Phone: CBCD,SMEAR DIFF 12 % Abnormal 0-10 Comprehen [facility] Internal Medicine Work Phone: CBCD,SMEAR DIFF SeeNote Normal Comprehen sive Internal Medicine Work Phone: Comment on above: Result: NORM C+C CBCD,SMEAR DIFF 61 % Normal 47-70 [facility] Internal Medicine Work Phone: COMP METABOLICOrdered By: Robb stem Drying Machine Receiver on 02-01-2009 Albumin mass conc 3.5 g/dL Normal 3.4-5.0 [facility] Internal Medicine Work Phone: Albumin/Globulin mass ratio 1.0 {RATIO} Normal 0.9-2.4 [facility] Internal Medicine Work Phone: ALP enzyme act/vol 96 U/L Normal 50-136 [facility] Internal Medicine Work Phone: ALT enzyme act/vol 28 U/L Abnormal 30-65 [facility] Internal Medicine Work Phone: Anion gap molar conc 6 mmol/L Normal 5-15 [facility] Internal Medicine Work Phone: AST enzyme act/vol 11 U/L Abnormal 15-37 [facility] Internal Medicine Work Phone: Bilirubin mass conc 0.20 mg/dL Normal 0.00-1.00 [facility] Internal Medicine Work Phone: Calcium mass conc 9.0 mg/dL Normal 8.5-10.1 [facility] Internal Medicine Work Phone: Chloride molar conc 102 mmol/L Normal 98-107 [facility] Internal Medicine Work Phone: CO2 molar conc 28.0 mmol/L Normal 21.0-32.0 [facility] Internal Medicine Work Phone: Creatinine mass conc 0.6 mg/dL Normal 0.6-1.0 [facility] Internal Medicine Work Phone: GFR/1.73 sq M predicted among blacks MDRD vol rate/area (S/P/Bld) 135 mL/min/{1.73_m2} Normal Comprehensi Internal Medicine Work Phone: GFR/1.73 sq M.predicted MDRD vol rate/area 111 mL/min/{1.73_m2} Normal Comprehensi ve [facility] Work Phone: Globulin mass conc (S) 3.4 g/dL Normal 2.7-4.2 Co m[facility] Work Phone: Glucose mass conc 93 mg/dL Normal 70-110 Compreh ensive [facility] Medicine Work Phone: Potassium molar conc 3.9 mmol/L Normal 3.5-5.1 Comp rehensive Internal Medicine Work Phone: Protein mass conc 6.9 g/dL Normal 6.4-8.2 Compreh ensive [facility] Work Phone: Sodium molar conc 136 mmol/L Normal 136-145 Compreh ensive [facility] Work Phone: Urea nitrogen mass conc 12 mg/dL Normal 7-18 [facility] Work Phone: Urea nitrogen/Creatinine mass ratio 20.0 {RATIO} Normal 10-20 [facility] Work Phone: ESROrdered By: System Manage r on 02-01-2009 ESR Velocity (Bld) 21 mm/h Normal 0-30 [facility] Work Phone: RHEUMATOID FACOrdered By: EMBI stem Drying Machine Receiver on 02-01-2009 Rheumatoid factor Qn [IU]/mL Normal Comp rehensive Internal Medicine Work Phone: TSHOrdered By: System Manage r on 02-01-2009 Thyrotropin Qn 1.11 {uIU/mL} Normal 0.358-3.74 Compreh ensive Internal Medicine Work Phone: ABDOMEN WITHOUT CONTRASTOrde red By: Warehouse Supervisor on 05-26-2008 ABDOMEN WITHOUT CONTRAST See Note Normal [facility] Work Phone: Comment on above: Exam Number: [id number] CT OF THE ABDOMEN & PELVIS, IV NONCONTRAST CLINICAL STATEMENTUrinary stone evaluation.Hematuria. Bilateral back pain. Helical imaging through the abdomen and pelvis using 3.8 mm sections. There are no calculi within the collecting system via the kidney. Theureters are not hydronephrotic. No ureteral stone is found on eitherside. There is a 15 mm cyst laterally on the left kidney. Outside of the urinary tract there are several granulomatouscalcifications within the spleen. The adrenal gland, pancreas, andhepatic contours are normal. The biliary tract is unremarkable. There is no ascites. Bowel loops are not dilated. In the pelvis, the urinary bladder is normal. The uterus is absent. There are isolated diverticula along the sigmoid colon. The appendixis not confidentally visualized. IMPRESSION1. Negative study for urinary tract stone or obstruction.2. Incidental findings of granulomatous calcification in the spleen.3. Left renal cyst.4. There are a few uncomplicated diverticula along the sigmoid colon. Reported By: STEVE TREVINO M.D. Exam Number: [id number] CT OF THE ABDOMEN & PELVIS, IV NONCONTRAST CLINICAL STATEMENTUrinary stone evaluation.Hematuria. Bilateral back pain. Helical imaging through the abdomen and pelvis using 3.8 mm sections. There are no calculi within the collecting system via the kidney. Theureters are not hydronephrotic. No ureteral stone is found on eitherside. There is a 15 mm cyst laterally on the left kidney. Outside of the urinary tract there are several granulomatouscalcifications within the spleen. The adrenal gland, pancreas, andhepatic contours are normal. The biliary tract is unremarkable. There is no ascites. Bowel loops are not dilated. In the pelvis, the urinary bladder is normal. The uterus is absent. There are isolated diverticula along the sigmoid colon. The appendixis not confidentally visualized. IMPRESSION1. Negative study for urinary tract stone or obstruction.2. Incidental findings of granulomatous calcification in the spleen.3. Left renal cyst.4. There are a few uncomplicated diverticula along the sigmoid colon. Reported By: STEVE TREVINO M.D. Urinalysis, Office ([id number])Or dered By: Debbie Esparza on 05-26-2008 Bilirubin Ql (U) Negative Normal Comprehe nsive Internal Medicine Work Phone: Bilirubin Ql (U) Negative Normal Comprehe nsive Internal Medicine; [facility] Work Phone: Glucose Test strip (U) [Mass/Vol] Negative Normal [facility]; [facility] Work Phone: Glucose Test strip mass conc (U) Negative Normal [facility] Work Phone: Ketones Ql (U) Negative Normal [facility] Work Phone: Ketones Ql (U) Negative Normal [facility]; [facility] Work Phone: Leukocyte esterase Test strip Ql (U) Trace Normal [facility] Work Phone: Nitrite Ql (U) Negative Normal [facility] Work Phone: Nitrite Ql (U) Negative Normal [facility]; [facility] Work Phone: pH (U) 7.0 [pH] Normal [facility] Work Phone: Protein Ql (U) Negative Normal [facility] Work Phone: Protein Ql (U) Negative Normal [facility]prehens [facility]; [facility] Work Phone: Specific gravity Relative Density (U) 1.010 1 Normal Comprehensi Internal Medicine Work Phone: Urobilinogen mass/time (24H U) Normal Normal [facility] Work Phone: Urinalysis, Office ([id number])Or dered By: Corie Cadet on 05-26-2008 Hemoglobin Ql (U) Non Hemolyzed Trace Abnormal [facility] Work Phone: ABDOMEN WITH CONTRASTOrdered By: Warehouse Supervisor on 04-15-2008 ABDOMEN WITH CONTRAST See Note Normal Com prehensive Internal Medicine Work Phone: Comment on above: Exam Number: [id number] CT ABDOMEN WITH CONTRAST HISTORYUpper abdominal pain. COMPARISON STUDYNone. 3.75 mm axial tomographic images were acquired from the lung basesthrough the pubis symphysis after the uneventful intravenousadministration of 100 cc of Isovue 300 contrast. Oral contrast wasalso given. Lungs bases are clear. No pleural or pericardial effusions. Theheart is of normal size. There are multiple calcified granulomas in the spleen which isotherwise normal. The liver is homogeneous except for low attenuationarea adjacent to a falciform ligament felt to be local fattydeposition. Gallbladder is normal. Common bile duct is assessed 6 mm.Pancreatic duct is prominent but no pancreatic masses or inflammationis identified. There is symmetric renal function and normal renal size. There is anexophytic simple cyst extending off of the lateral mid pole leftkidney. No other stones. The aorta is normal caliber. No adenopathy. No free air or freefluid. Visualized abdominal structures are unremarkable except formoderate stool in the colon. IMPRESSIONNegative study. Reported By: DYLLAN COLLINS M.D. BONE SCAN WHOLE BODYOrdered By: Warehouse Supervisor on 12-03-2007 BONE SCAN WHOLE BODY See Note Normal Comp rehensive Internal Medicine Work Phone: Comment on above: Exam Number: [id number] RADIONUCLEIDE BONE SCAN REASON FOR EXAMINATIONLimb pain. Bone pain. Total body scan is performed following intravenous administration of24.6 mCi of Tc99m tagged MDP. There is homogeneous uptake of radionucleide throughout the visualizedaxial and appendicular skeleton with no focal area of abnormalincreased or decreased uptake. There is the usual expected activityassociated with the kidneys and the urinary bladder. IMPRESSIONNormal radionucleide bone scan. Reported By: ROSSY TEE M.D. C-REACTIVE PROTOrdered By: Leif hookertem Drying Machine Receiver on 11-18-2007 CRP mass conc 2.74 mg/L Normal 0.0-6.0 Comprehensi ve [facility] Work Phone: Comment on above: Test performed using the Dimension C-Reactive ProteinExtended Range assay method. This assay meets the AHA/CDC 2003 recommendations fordetermining patients at high risk for cardiovasculardisease. Reference: High risk CRP >3.0 mg/L CPK TOTALOrdered By: Warehouse Supervisor on 11-18-2007 CPK TOTAL 44 U/L Normal 21-215 [facility] Work Phone: ESROrdered By: System Manage r on 11-18-2007 ESR Velocity (Bld) 16 mm/h Normal 0-30 Compre [facility] Internal Medicine Work Phone: FEMUR,2 VIEWSOrdered By: Baldemar vides Drying Machine Receiver on 11-18-2007 FEMUR,2 VIEWS See Note Normal Comprehensi ve Internal Medicine Work Phone: Comment on above: Exam Number: [id number] LEFT FEMUR TWO VIEWS, RIGHT FEMUR TWO VIEWS. CLINICAL STATEMENTThigh and calf pain. FINDINGSThere is no fracture. No periosteal reaction or endosteal scallopingis seen. Joint space at the hip is maintained. At the knees, thereis mild narrowing of the medial compartment bilaterally. Soft tissuesare unremarkable. IMPRESSION1. Normal left and right femurs. 2. 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 Reported By: STEVE TREVINO M.D. Exam Number: [id number] RIGHT LOWER LEG 2 VIEWS. CLINICAL STATEMENTBilateral pain, thigh and calf. FINDINGSRoutine views show no fracture, dislocation, joint abnormality, orsoft tissue calcifications. IMPRESSION1. Normal examination. Reported By: STEVE TREVINO M.D. Exam Number: [id number] LEFT LOWER LEG CLINICAL STATEMENTBilateral thigh and calf pain. Routine views show no fracture, dislocation, joint abnormality, orsoft tissue calcifications. IMPRESSIONNormal examination. Reported By: STEVE TREVINO M.D. Exam Number: [id number] LEFT FEMUR TWO VIEWS, RIGHT FEMUR TWO VIEWS. CLINICAL STATEMENTThigh and calf pain. FINDINGSThere is no fracture. No periosteal reaction or endosteal scallopingis seen. Joint space at the hip is maintained. At the knees, thereis mild narrowing of the medial compartment bilaterally. Soft tissuesare unremarkable. IMPRESSION1. Normal left and right femurs. 2. 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 Reported By: STEVE TREVINO M.D. LIPIDOrdered By: Oc schuster on 04-20-2007 Cholesterol in HDL mass conc 36 mg/dL Normal [facility] Work Phone: Comment on above: Reference Range HDL <40 mg/dL Low HDL Cholesterol HDL >or= 60 mg/dL High HDL Cholesterol Cholesterol in LDL mass conc 91 mg/dL Normal 0-130 [facility] Work Phone: Cholesterol in VLDL mass conc 37 mg/dL Normal 5-40 [facility] Work Phone: Cholesterol mass conc 164 mg/dL Normal Com prehensive [facility] Medicine Work Phone: Comment on above: <200 mg/dL Desirable 200-240 mg/dL Borderline >240 mg/dL High Risk Triglyceride mass conc 183 mg/dL Normal Co mprehensive [facility] Work Phone: Comment on above: Serum Triglycerides Reference Interval Normal <150 mg/dL Borderline high 150 - 199 mg/dL High 200 - 499 mg/dL Very High > or = 500 mg/dL B12/FOLATES 810Ordered By: Leif tai Drying Machine Receiver on 10-06-2006 Cobalamin (Vitamin B12) mass conc 286 pg/mL Normal 211-911 [facility] Work Phone: B12/FOLATES 810 19.9 ng/mL Normal Comprehen [facility] Internal Medicine Work Phone: Comment on above: Indeterminate: 3.4 - 5.4 Deficient: <3.4Performed At: [facility] [id number] [place], [place] [id number] CBCDOrdered By: Oc Odom er on 10-06-2006 Basophils/100 WBC (Bld) 0.7 % Normal 0-1 [facility] Work Phone: Eosinophils/100 WBC (Bld) 2.0 % Normal 0-5 [facility] Work Phone: Erythrocyte distribution width Ratio (RBC) 12.9 % Normal 11.6-14.6 [facility] Work Phone: Hematocrit Volume Fraction (Bld) 37.2 % Normal 37-47 [facility] Work Phone: Hemoglobin mass conc (Bld) 12.7 g/dL Normal 12.0-16.0 [facility] Work Phone: Lymphocytes/100 WBC (Bld) 31.5 % Normal 19-41 [facility] Work Phone: MCH Entitic mass (RBC) 31.5 pg Normal 27.0-32.0 Co mprehensive [facility] Work Phone: MCHC mass conc (RBC) 34.2 g/dL Normal 32-36 Comp rehensive Internal Medicine Work Phone: MCV Entitic volume (RBC) 92.3 fL Normal 81-99 [facility] Work Phone: Monocytes/100 WBC (Bld) 5.5 % Normal 0-10 [facility] Work Phone: Neutrophils/100 WBC (Bld) 60.3 % Normal 47-70 [facility] Work Phone: Platelet mean volume Entitic volume (Bld) 8.3 fL Normal 6.5-12.0 Comprehensi ve Internal Medicine Work Phone: Platelets #/vol (Bld) 283 10*3/uL Normal 150-450 Co mprehensive [facility] Medicine Work Phone: RBC #/vol (Bld) 4.03 {M/mm3} Abnormal 4.2-5.4 Compreh ensive Internal Medicine Work Phone: WBC #/vol (Bld) 6.0 10*3/uL Normal 4.4-11.0 [facility] Work Phone: COMP METABOLICOrdered By: Robb stem Drying Machine Receiver on 10-06-2006 Albumin mass conc 3.8 g/dL Normal 3.4-5.0 [facility] Work Phone: Albumin/Globulin mass ratio 1.1 {RATIO} Normal 0.9-2.4 [facility] Internal Medicine Work Phone: ALP enzyme act/vol 72 U/L Normal 50-136 [facility] Work Phone: ALT enzyme act/vol 30 [iU]/L Normal 30-65 [facility] Internal Medicine Work Phone: Anion gap molar conc 9 mmol/L Normal 5-15 Comp [facility] Internal Medicine Work Phone: AST enzyme act/vol 13 U/L Abnormal 15-37 [facility] Work Phone: Bilirubin mass conc 0.31 mg/dL Normal 0.00-1.00 Compr [facility] Internal Medicine Work Phone: Calcium mass conc 9.2 mg/dL Normal 8.5-10.1 [facility]pre[facility] Work Phone: Chloride molar conc 104 mmol/L Normal 98-107 Compr [facility] Internal Medicine Work Phone: CO2 molar conc 27.3 mmol/L Normal 22.0-29.0 Comprehen [facility] Internal Medicine Work Phone: Creatinine mass conc 0.7 mg/dL Normal 0.6-1.0 Comp rehensive Internal Medicine Work Phone: Globulin mass conc (S) 3.6 g/dL Abnormal 2.3-3.5 Co mprehensive Internal Medicine Work Phone: Glucose mass conc 98 mg/dL Normal 70-110 Compreh ensive Internal Medicine Work Phone: Potassium molar conc 4.1 mmol/L Normal 3.5-5.1 Comp rehensive Internal Medicine Work Phone: Protein mass conc 7.4 g/dL Normal 6.4-8.2 Compreh ensive Internal Medicine Work Phone: Sodium molar conc 140 mmol/L Normal 136-145 Compreh ensive Internal Medicine Work Phone: Urea nitrogen mass conc 13 mg/dL Normal 7-18 [facility] Work Phone: Urea nitrogen/Creatinine mass ratio 18.6 {RATIO} Normal 10-20 [facility] Work Phone: D-DIMER QUANTOrdered By: Baldemar tem Drying Machine Receiver on 10-06-2006 D-DIMER QUANT 268 ng/mL Abnormal Comprehensi ve Internal Medicine Work Phone: Comment on above: D-Dimer ELEVATED: Ad ditional studies may be indicated to conclude diagnosis. ROUTINE UAOrdered By: Warehouse Supervisor on 10-06-2006 Clarity Nom (U) CLEAR Normal Comprehen sive Internal Medicine Work Phone: Color Nom (U) YELLOW Normal Comprehensi ve Internal Medicine Work Phone: Glucose mass conc SeeNote Normal Compreh ensive Internal Medicine Work Phone: Comment on above: Result: NEGATIVE Protein mass conc SeeNote Normal Compreh ensive Internal Medicine Work Phone: Comment on above: Result: NEGATIVE ROUTINE UA SeeNote Normal [facility] Work Phone: Comment on above: Result: NEGATIVE ROUTINE UA 0.2 EU/dl Normal 0.2 - 1.0 [facility] Work Phone: ROUTINE UA 6.5 1 Normal 5.0-8.0 [facility] Work Phone: ROUTINE UA 1.025 1 Normal 1.002-1.030 [facility] Work Phone: TSHOrdered By: System Manage r on 10-06-2006 Thyrotropin Qn 3.01 {uIU/mL} Normal 0.34-4.82 Compreh ensive Internal Medicine Work Phone: Vital Signs Date Time Vital Sign Value Performing Clinician Facility 09-21-2024 06:59-0500 Body temperature 98.1 [degF] Dr. Alex Ovalles MD Work Phone: [facility] 09-21-2024 06:59-0500 Diastolic blood pressure 51 mm[Hg] Dr. Alex Ovalles MD Work Phone: [facility] 09-21-2024 06:59-0500 Heart rate 92 /min Dr. Alex Ovalles MD Work Phone: [facility] 09-21-2024 06:59-0500 Respiratory rate 20 /min Dr. Alex Ovalles MD Work Phone: [facility] 09-21-2024 06:59-0500 SaO2% (BldA) [Mass fraction] 94 % Dr. Alex Ovalles MD Work Phone: [facility] 09-21-2024 06:59-0500 Systolic blood pressure 106 mm[Hg] Dr. Alex Ovalles MD Work Phone: [facility] 09-21-2024 04:31-0500 Body height 157.[address] Alex Ovalles MD Work Phone: [facility] 09-21-2024 04:31-0500 Body mass index (BMI) [Ratio] 20.9 kg/m2 Dr. Alex Ovalles MD Work Phone: [facility] 09-21-2024 04:31-0500 Body weight 52.[address] Alex Ovalles MD Work Phone: [facility] 05-13-2023 16:51-0400 Body height 157.48 cm [facility] 05-13-2023 16:51-0400 Body mass index (BMI) [Ratio] 20.2 kg/m2 [facility] 05-13-2023 16:51-0400 Body temperature 97.8 [degF] [facility] 05-13-2023 16:51-0400 Body weight 50.34 kg [facility] 05-13-2023 16:51-0400 Diastolic blood pressure 65 mm[Hg] [facility] 05-13-2023 16:51-0400 Heart rate 75 /min [facility] 05-13-2023 16:51-0400 Respiratory rate 16 /min [facility] 05-13-2023 16:51-0400 SaO2% (BldA) [Mass fraction] 98 % [facility] 05-13-2023 16:51-0400 Systolic blood pressure 136 mm[Hg] [facility] 03-18-2023 09:13-0400 Diastolic blood pressure 61 mm[Hg] [facility] 03-18-2023 09:13-0400 Heart rate 76 /min [facility] 03-18-2023 09:13-0400 Respiratory rate 18 /min [facility] 03-18-2023 09:13-0400 SaO2% (BldA) [Mass fraction] 99 % [facility] 03-18-2023 09:13-0400 Systolic blood pressure 111 mm[Hg] [facility] 03-18-2023 07:17-0400 Body height 157.48 cm [facility] 03-18-2023 07:17-0400 Body mass index (BMI) [Ratio] 21.5 kg/m2 [facility] 03-18-2023 07:17-0400 Body temperature 97.5 [degF] [facility] 03-18-2023 07:17-0400 Body weight 53.52 kg [facility] 02-22-2023 12:43-0400 Body height 154.94 cm Corie Cady ALTAMIRANO Work Phone: [facility]; [facility] Work Phone: 02-22-2023 12:43-0400 Body mass index (BMI) [Ratio] 21.59 kg/m2 Corie Cady DO Work Phone: [facility]; [facility] Work Phone: 02-22-2023 12:43-0400 Body surface area Derived from formula 1.49 m2 Corie Cady DO Work Phone: [facility]; [facility] Work Phone: 02-22-2023 12:43-0400 Body temperature 98.2 [degF] Corie Cady DO Work Phone: [facility]; [facility] Work Phone: 02-22-2023 12:43-0400 Body weight 51.82 kg Corie Cady DO Work Phone: [facility]; [facility] Work Phone: 02-22-2023 12:43-0400 Diastolic blood pressure 70 mm[Hg] Corie Cady DO Work Phone: [facility]; [facility] Work Phone: 02-22-2023 12:43-0400 Heart rate 68 /min Corie Cady DO Work Phone: [facility]; [facility] Work Phone: 02-22-2023 12:43-0400 Respiratory rate 18 /min Corie Cady DO Work Phone: [facility]; [facility] Work Phone: 02-22-2023 12:43-0400 SaO2% (BldA) [Mass fraction] 98 % Corie Cady DO Work Phone: [facility]; [facility] Work Phone: 02-22-2023 12:43-0400 Systolic blood pressure 122 mm[Hg] Corie Cady DO Work Phone: [facility]; [facility] Work Phone: 05-22-2022 14:31-0400 Body height 154.94 cm [facility]; [facility] Work Phone: 05-22-2022 14:31-0400 Body mass index (BMI) [Ratio] 21.97 kg/m2 [facility]; [facility] Work Phone: 05-22-2022 14:31-0400 Body surface area Derived from formula 1.5 m2 [facility]; [facility] Work Phone: 05-22-2022 14:31-0400 Body temperature 97.3 [degF] [facility]; [facility] Work Phone: 05-22-2022 14:31-0400 Body weight 52.73 kg [facility]; [facility] Work Phone: 05-22-2022 14:31-0400 Diastolic blood pressure 68 mm[Hg] [facility]; [facility] Work Phone: 05-22-2022 14:31-0400 Heart rate 77 /min [facility]; [facility] Work Phone: 05-22-2022 14:31-0400 Respiratory rate 18 /min [facility]; [facility] Work Phone: 05-22-2022 14:31-0400 SaO2% (BldA) [Mass fraction] 98 % [facility]; [facility] Work Phone: 05-22-2022 14:31-0400 Systolic blood pressure 116 mm[Hg] [facility]; [facility] Work Phone: 10-03-2021 15:44-0500 Body height 154.94 cm [facility]; [facility] Work Phone: 10-03-2021 15:44-0500 Body mass index (BMI) [Ratio] 22.58 kg/m2 Marti Gravius [employer] [facility]; [facility] Work Phone: 10-03-2021 15:44-0500 Body surface area Derived from formula 1.52 m2 Marti Gallegos [facility]; [facility] Work Phone: 10-03-2021 15:44-0500 Body temperature 97.3 [degF] Marti Gallegos [facility]; [facility] Work Phone: 10-03-2021 15:44-0500 Body weight 54.21 kg Marti Gallegos [facility]; [facility] Work Phone: 10-03-2021 15:44-0500 Diastolic blood pressure 70 mm[Hg] Marti Gallegos [facility]; [facility] Work Phone: 10-03-2021 15:44-0500 Heart rate 76 /min Marti Gallegos [facility]; [facility] Work Phone: 10-03-2021 15:44-0500 Respiratory rate 16 /min Marti Gallegos [facility]; [facility] Work Phone: 10-03-2021 15:44-0500 SaO2% (BldA) [Mass fraction] 96 % Marti Gallegos [facility]; [facility] Work Phone: 10-03-2021 15:44-0500 Systolic blood pressure 118 mm[Hg] Marti Gallegos [facility]; [facility] Work Phone: 07-18-2021 08:07-0400 Body height 154.94 cm Christina Lubinrb [facility]; [facility] Work Phone: 07-18-2021 08:07-0400 Body mass index (BMI) [Ratio] 22.58 kg/m2 Christina Slarb [facility]; [facility] Work Phone: 07-18-2021 08:07-0400 Body surface area Derived from formula 1.52 m2 Christina Slarb [facility]; [facility] Work Phone: 07-18-2021 08:07-0400 Body temperature 97.3 [degF] Christina Slarb TRAFFIC RATE CLERK [facility]; [facility] Work Phone: 07-18-2021 08:07-0400 Body weight 54.21 kg Christina Slarb TRAFFIC RATE CLERK [facility]; [facility] Work Phone: 07-18-2021 08:07-0400 Diastolic blood pressure 80 mm[Hg] Christina Slarb TRAFFIC RATE CLERK [facility]; [facility] Work Phone: 07-18-2021 08:07-0400 Heart rate 63 /min Christina Slarb TRAFFIC RATE CLERK [facility]; [facility] Work Phone: 07-18-2021 08:07-0400 Respiratory rate 16 /min Christina Slarb TRAFFIC RATE CLERK [facility]; [facility] Work Phone: 07-18-2021 08:07-0400 SaO2% (BldA) [Mass fraction] 99 % Christina Slarb TRAFFIC RATE CLERK [facility]; [facility] Work Phone: 07-18-2021 08:07-0400 Systolic blood pressure 122 mm[Hg] Christina Slarb TRAFFIC RATE CLERK [facility]; [facility] Work Phone: 07-04-2021 10:19-0400 Body height 154.94 cm Corie Cady DO Work Phone: [facility]; [facility] Work Phone: 07-04-2021 10:19-0400 Body mass index (BMI) [Ratio] 21.92 kg/m2 Corie Cady DO Work Phone: [facility]; [facility] Work Phone: 07-04-2021 10:19-0400 Body surface area Derived from formula 1.5 m2 Corie Cady DO Work Phone: [facility]; [facility] Work Phone: 07-04-2021 10:19-0400 Body weight 52.63 kg Corie Cady DO Work Phone: [facility]; [facility] Work Phone: 07-04-2021 10:19-0400 Diastolic blood pressure 80 mm[Hg] Corie Cady DO Work Phone: [facility]; [facility] Work Phone: 07-04-2021 10:19-0400 Heart rate 86 /min Corie Cady DO Work Phone: [facility]; [facility] Work Phone: 07-04-2021 10:19-0400 Systolic blood pressure 116 mm[Hg] Corie Cady DO Work Phone: [facility]; [facility] Work Phone: 06-15-2021 09:59-0400 Body height 154.94 cm Marti Gallegos [facility]; [facility] Work Phone: 06-15-2021 09:59-0400 Body mass index (BMI) [Ratio] 21.92 kg/m2 Marti Gallegos [facility]; [facility] Work Phone: 06-15-2021 09:59-0400 Body surface area Derived from formula 1.5 m2 Marti Gallegos [facility]; [facility] Work Phone: 06-15-2021 09:59-0400 Body temperature 97.2 [degF] Marti Gallegos [facility]; [facility] Work Phone: 06-15-2021 09:59-0400 Body weight 52.63 kg Marti Gallegos [facility]; [facility] Work Phone: 06-15-2021 09:59-0400 Diastolic blood pressure 70 mm[Hg] Marti Mosesius [facility]; [facility] Work Phone: 06-15-2021 09:59-0400 Heart rate 84 /min Marti Mosesius [facility]; [facility] Work Phone: 06-15-2021 09:59-0400 Respiratory rate 18 /min Marti Gallegos [facility]; [facility] Work Phone: 06-15-2021 09:59-0400 SaO2% (BldA) [Mass fraction] 98 % Marti Gallegos [facility]; [facility] Work Phone: 06-15-2021 09:59-0400 Systolic blood pressure 110 mm[Hg] Marti Gallegos [facility]; [facility] Work Phone: 03-03-2021 08:05-0400 Body height 154.94 cm [facility]; [facility] Work Phone: 03-03-2021 08:05-0400 Body mass index (BMI) [Ratio] 21.55 kg/m2 [facility]; [facility] Work Phone: 03-03-2021 08:05-0400 Body surface area Derived from formula 1.49 m2 [facility]; [facility] Work Phone: 03-03-2021 08:05-0400 Body temperature 97.2 [degF] [facility]; [facility] Work Phone: Comment on above: Method: Thermal Scan 03-03-2021 08:05-0400 Body weight 51.73 kg [facility]; [facility] Work Phone: 03-03-2021 08:05-0400 Diastolic blood pressure 74 mm[Hg] [facility]; [facility] Work Phone: Comment on above: Patient Position: Sitting; Cuff Location : Left Arm; Cuff Size: Standard 03-03-2021 08:05-0400 Heart rate 80 /min [facility]; [facility] Work Phone: Comment on above: Pattern: Regular 03-03-2021 08:05-0400 Respiratory rate 16 /min [facility]; [facility] Work Phone: Comment on above: Pattern: Unlabored 03-03-2021 08:05-0400 SaO2% (BldA) [Mass fraction] 98 % Sasha Verdin TRAFFIC RATE CLERK [facility]; [facility] Work Phone: Comment on above: Room air 03-03-2021 08:05-0400 Systolic blood pressure 120 mm[Hg] Sasha Verdin TRAFFIC RATE CLERK [facility]; [facility] Work Phone: Comment on above: Patient Position: Sitting; Cuff Location : Left Arm; Cuff Size: Standard 07-01-2020 10:04-0400 BMI (Body Mass Index) 21.55 kg/m2 Sasha Cross TRAFFIC RATE CLERK [facility] Work Phone: 07-01-2020 10:04-0400 Body weight 51.73 kg Sasha Verdin TRAFFIC RATE CLERK [facility] Work Phone: 07-01-2020 10:04-0400 BSA (Body Surface Area) 1.49 m2 Sasha Verdin TRAFFIC RATE CLERK [facility] Work Phone: 07-01-2020 10:04-0400 Height 154.94 cm Sasha Verdin TRAFFIC RATE CLERK [facility] Work Phone: 11-03-2019 09:12-0500 BMI (Body Mass Index) 21.55 kg/m2 Christina Slarb TRAFFIC RATE CLERK [facility] Work Phone: 11-03-2019 09:12-0500 Body Temperature 98.8 [degF] Christina Slarb TRAFFIC RATE CLERK [facility] Work Phone: 11-03-2019 09:12-0500 Body weight 51.73 kg Christnia Slarb TRAFFIC RATE CLERK [facility] Work Phone: 11-03-2019 09:12-0500 BP Diastolic 76 mm[Hg] Christina Slarb TRAFFIC RATE CLERK [facility] Work Phone: Comment on above: Patient Position: Sitting; Cuff Location : Left Arm; Cuff Size: Standard 11-03-2019 09:12-0500 BP Systolic 118 mm[Hg] Christina Slarb TRAFFIC RATE CLERK [facility] Work Phone: Comment on above: Patient Position: Sitting; Cuff Location : Left Arm; Cuff Size: Standard 11-03-2019 09:12-0500 BSA (Body Surface Area) 1.49 m2 Christina Slarb TRAFFIC RATE CLERK [facility] Work Phone: 11-03-2019 09:12-0500 Height 154.94 cm Christina Slarb TRAFFIC RATE CLERK [facility] Work Phone: 11-03-2019 09:12-0500 Pulse (Heart Rate) 78 /min Christina Slarb TRAFFIC RATE CLERK [facility] Work Phone: Comment on above: Pattern: Regular 11-03-2019 09:12-0500 Pulse Oximetry 98 % Corie Cadet [facility] Work Phone: Comment on above: Room air 11-03-2019 09:12-0500 Respiratory Rate 16 /min Christina Slarb TRAFFIC RATE CLERK [facility] Work Phone: Comment on above: Pattern: Unlabored 11-03-2019 09:12-0500 SaO2% (BldA) [Mass fraction] 98 % Christina Slarb TRAFFIC RATE CLERK [facility]; [facility] Work Phone: Comment on above: Room air 06-23-2019 10:21-0400 BMI (Body Mass Index) 21.55 kg/m2 Christina Slarb TRAFFIC RATE CLERK [facility] Work Phone: 06-23-2019 10:21-0400 Body Temperature 97.8 [degF] Christina Slarb TRAFFIC RATE CLERK [facility] Work Phone: 06-23-2019 10:21-0400 Body weight 51.73 kg Christina Slarb TRAFFIC RATE CLERK [facility] Work Phone: 06-23-2019 10:21-0400 BP Diastolic 82 mm[Hg] Christina Slarb TRAFFIC RATE CLERK [facility] Work Phone: Comment on above: Patient Position: Sitting; Cuff Location : Left Arm; Cuff Size: Standard 06-23-2019 10:21-0400 BP Systolic 118 mm[Hg] Christina Slarb TRAFFIC RATE CLERK [facility] Work Phone: Comment on above: Patient Position: Sitting; Cuff Location : Left Arm; Cuff Size: Standard 06-23-2019 [id number] BSA (Body Surface Area) 1.49 m2 Christina Slacynthia JAMESONN [facility] Work Phone: 06-23-2019 [id number] Height 154.94 cm Christina Phoebe JAMESONN [facility] Work Phone: 06-23-2019 10:21-0400 Pulse (Heart Rate) 82 /min Christina Slacynthia JAMESONN [facility] Work Phone: Comment on above: Pattern: Regular 06-23-2019 10:21-0400 Pulse Oximetry 97 % Corie Cadet [facility] Work Phone: Comment on above: Room air 06-23-2019 10:21-0400 Respiratory Rate 16 /min Christina Phoebe JAMESONN [facility] Work Phone: Comment on above: Pattern: Unlabored 06-23-2019 10:21-0400 SaO2% (BldA) [Mass fraction] 97 % Christina Sandhu LPN [facility]; [facility] Work Phone: Comment on above: Room air 02-18-2019 14:08-0400 BMI (Body Mass Index) 21.55 kg/m2 Jaden Shepard LPN [facility] Work Phone: 02-18-2019 14:08-0400 Body Temperature 97.7 [degF] Jaden Shepard LPN [facility] Work Phone: Comment on above: Method: Temporal 02-18-2019 14:08-0400 Body weight 51.73 kg Jaden Shepard LPN [facility] Work Phone: 02-18-2019 14:08-0400 BP Diastolic 70 mm[Hg] Jaden Shepard LPN [facility] Work Phone: Comment on above: Patient Position: Sitting; Cuff Location : Left Arm; Cuff Size: Standard 02-18-2019 14:08-0400 BP Systolic 118 mm[Hg] Jaden Shepard LPN [facility] Work Phone: Comment on above: Patient Position: Sitting; Cuff Location : Left Arm; Cuff Size: Standard 02-18-2019 14:08-0400 BSA (Body Surface Area) 1.49 m2 Jaden Shepard SAADIA [facility] Work Phone: 02-18-2019 14:08-0400 Height 154.94 cm Jaden Devyn ZEE [facility] Work Phone: 02-18-2019 14:08-0400 Pulse (Heart Rate) 76 /min Jaden Shepard SAADIA [facility] Work Phone: Comment on above: Pattern: Regular 02-18-2019 14:08-0400 Pulse Oximetry 97 % Corie Cadet [facility] Work Phone: Comment on above: Room air 02-18-2019 14:08-0400 Respiratory Rate 16 /min Jaden Shepard LPN [facility] Work Phone: Comment on above: Pattern: Unlabored 02-18-2019 14:08-0400 SaO2% (BldA) [Mass fraction] 97 % Jaden Devyn ZEE [facility]; [facility] Work Phone: Comment on above: Room air 02-18-2019 14:08-0400 Weight 51.73 kg Corie Cadet [facility] Work Phone: 11-26-2018 13:20-0500 BMI (Body Mass Index) 22.11 kg/m2 Katie David [facility] Work Phone: 11-26-2018 13:20-0500 Body Temperature 98.8 [degF] Katie Hernanedz [facility] Work Phone: Comment on above: Method: Temporal 11-26-2018 13:20-0500 Body weight 53.07 kg Katie David [facility] Work Phone: 11-26-2018 13:20-0500 BP Diastolic 72 mm[Hg] Katie Hernandez [facility] Work Phone: Comment on above: Patient Position: Sitting; Cuff Location : Left Arm; Cuff Size: Standard 11-26-2018 13:20-0500 BP Systolic 110 mm[Hg] Katie Hernandez [facility] Work Phone: Comment on above: Patient Position: Sitting; Cuff Location : Left Arm; Cuff Size: Standard 11-26-2018 13:20-0500 BSA (Body Surface Area) 1.5 m2 Katie Hernandez [facility] Work Phone: 11-26-2018 13:20-0500 Height 154.94 cm Katie Hernandez [facility] Work Phone: 11-26-2018 13:20-0500 Pulse (Heart Rate) 69 /min Katie Hernandez [facility] Work Phone: Comment on above: Pattern: Regular 11-26-2018 13:20-0500 Pulse Oximetry 97 % Corie Cadet [facility] Work Phone: Comment on above: Room air 11-26-2018 13:20-0500 Respiratory Rate 16 /min Katie Hernandez [facility] Work Phone: Comment on above: Pattern: Unlabored 11-26-2018 13:20-0500 SaO2% (BldA) [Mass fraction] 97 % Katie Hernandez [facility]; [facility] Work Phone: Comment on above: Room air 11-26-2018 13:20-0500 Weight 53.07 kg Corie Cadet [facility] Work Phone: 06-14-2018 12:57-0400 BMI (Body Mass Index) 22.11 kg/m2 Katie Hernandez [facility] Work Phone: 06-14-2018 12:57-0400 Body Temperature 97.4 [degF] Katie Hernandez [facility] Work Phone: Comment on above: Method: Temporal 06-14-2018 12:57-0400 Body weight 53.07 kg Katie Hernandez [facility] Work Phone: 06-14-2018 12:57-0400 BP Diastolic 82 mm[Hg] Katie Hernandez [facility] Work Phone: Comment on above: Patient Position: Sitting; Cuff Location : Left Arm; Cuff Size: Standard 06-14-2018 12:57-0400 BP Systolic 130 mm[Hg] Katie Hernandez [facility] Work Phone: Comment on above: Patient Position: Sitting; Cuff Location : Left Arm; Cuff Size: Standard 06-14-2018 12:57-0400 BSA (Body Surface Area) 1.5 m2 Katie Hernandez [facility] Work Phone: 06-14-2018 12:57-0400 Height 154.94 cm Katie Hernanedz [facility] Work Phone: 06-14-2018 12:57-0400 Pulse (Heart Rate) 80 /min Katie Hernandez [facility] Work Phone: Comment on above: Pattern: Regular 06-14-2018 12:57-0400 Pulse Oximetry 98 % Corie Cadet [facility] Work Phone: Comment on above: Room air 06-14-2018 12:57-0400 Respiratory Rate 16 /min Katei Hernandez [facility] Work Phone: Comment on above: Pattern: Unlabored 06-14-2018 12:57-0400 SaO2% (BldA) [Mass fraction] 98 % Katie Hernandez [facility]; [facility] Work Phone: Comment on above: Room air 06-14-2018 12:57-0400 Weight 53.07 kg Corie Weisson [facility] Work Phone: 07-02-2017 15:22-0400 BMI (Body Mass Index) 22.15 kg/m2 Tiffanie Palmer RN [facility] Work Phone: 07-02-2017 15:22-0400 Body Temperature 98.5 [degF] Tiffanie Palmer RN [facility] Work Phone: Comment on above: Method: Temporal 07-02-2017 15:22-0400 Body weight 53.18 kg Tiffanie Palmer RN [facility] Work Phone: 07-02-2017 15:22-0400 BP Diastolic 85 mm[Hg] Tiffanie Palmer RN [facility] Work Phone: Comment on above: Patient Position: Sitting; Cuff Location : Left Arm; Cuff Size: Standard 07-02-2017 15:22-0400 BP Systolic 143 mm[Hg] Tiffanie Palmer RN [facility] Work Phone: Comment on above: Patient Position: Sitting; Cuff Location : Left Arm; Cuff Size: Standard 07-02-2017 15:22-0400 BSA (Body Surface Area) 1.51 m2 Tiffanie Palmer RN [facility] Work Phone: 07-02-2017 15:22-0400 Height 154.94 cm Tiffanie Palmer RN [facility] Work Phone: 07-02-2017 15:22-0400 Pulse (Heart Rate) 78 /min Tiffanie Palmer RN [facility] Work Phone: Comment on above: Pattern: Regular 07-02-2017 15:22-0400 Pulse Oximetry 98 % Corie Cadet [facility] Work Phone: Comment on above: Room air 07-02-2017 15:22-0400 Respiratory Rate 15 /min Tiffanie Palmer RN [facility] Work Phone: Comment on above: Pattern: Unlabored 07-02-2017 15:22-0400 SaO2% (BldA) [Mass fraction] 98 % Tiffanie Palmer RN [facility]; [facility] Work Phone: Comment on above: Room air 07-02-2017 15:22-0400 Weight 53.18 kg Corie Cadet [facility] Work Phone: 04-10-2017 11:09-0400 BMI (Body Mass Index) 21.97 kg/m2 Tiffanie Palmer RN [facility] Work Phone: 04-10-2017 11:09-0400 Body weight 52.73 kg Tiffanie Palmer RN [facility] Work Phone: 04-10-2017 11:09-0400 BP Diastolic 78 mm[Hg] Tiffanie Palmer RN [facility] Work Phone: Comment on above: Patient Position: Sitting; Cuff Location : Left Arm; Cuff Size: Standard 04-10-2017 11:09-0400 BP Systolic 118 mm[Hg] Tiffanie Palmer RN [facility] Work Phone: Comment on above: Patient Position: Sitting; Cuff Location : Left Arm; Cuff Size: Standard 04-10-2017 11:09-0400 BSA (Body Surface Area) 1.5 m2 Tiffanie Palmer RN [facility] Work Phone: 04-10-2017 11:09-0400 Height 154.94 cm Tiffanie Palmer RN [facility] Work Phone: 04-10-2017 11:09-0400 Pulse (Heart Rate) 70 /min Tiffanie Palmer RN [facility] Work Phone: Comment on above: Pattern: Regular 04-10-2017 11:09-0400 Pulse Oximetry 97 % Corie Cady [facility] Work Phone: Comment on above: Room air 04-10-2017 11:09-0400 Respiratory Rate 18 /min Tiffanie Palmer RN [facility] Work Phone: Comment on above: Pattern: Unlabored 04-10-2017 11:09-0400 SaO2% (BldA) [Mass fraction] 97 % Tiffanie Palmer RN [facility]; [facility] Work Phone: Comment on above: Room air 04-10-2017 11:09-0400 Weight 52.73 kg Corie Cady [facility] Work Phone: 07-31-2016 16:08-0500 BMI (Body Mass Index) 22.39 kg/m2 Tiffanie Palmer RN [facility] Work Phone: 07-31-2016 16:08-0500 Body weight 53.75 kg Tiffanie Palmer RN [facility] Work Phone: 07-31-2016 16:08-0500 BP Diastolic 78 mm[Hg] Tiffanie Palmer RN [facility] Work Phone: 07-31-2016 16:08-0500 BP Systolic 138 mm[Hg] Tiffanie Palmer RN [facility] Work Phone: 07-31-2016 16:08-0500 BSA (Body Surface Area) 1.51 m2 Tiffanie Palmer RN [facility] Work Phone: 07-31-2016 16:08-0500 Height 154.94 cm Tiffanie Palmer RN [facility] Work Phone: 07-31-2016 16:08-0500 Pulse (Heart Rate) 70 /min Tiffanie Palmer RN [facility] Work Phone: Comment on above: Pattern: Regular 07-31-2016 16:08-0500 Pulse Oximetry 97 % Croie Cadet [facility] Medicine Work Phone: Comment on above: Room air 07-31-2016 16:08-0500 SaO2% (BldA) [Mass fraction] 97 % Tiffanie Palmer RN [facility]; [facility] Work Phone: Comment on above: Room air 07-31-2016 16:08-0500 Weight 53.75 kg Corie Cadet [facility] Work Phone: 06-21-2016 13:18-0400 BMI (Body Mass Index) 22.18 kg/m2 Zeldajoel Shaw [facility] Work Phone: 06-21-2016 13:18-0400 Body weight 53.24 kg Zelda Shaw [facility] Work Phone: 06-21-2016 13:18-0400 BP Diastolic 64 mm[Hg] [facility] Work Phone: Comment on above: Patient Position: Sitting; Cuff Location : Left Arm; Cuff Size: Standard 06-21-2016 13:18-0400 BP Systolic 132 mm[Hg] [facility] Work Phone: Comment on above: Patient Position: Sitting; Cuff Location : Left Arm; Cuff Size: Standard 06-21-2016 13:18-0400 BSA (Body Surface Area) 1.51 m2 [facility] Work Phone: 06-21-2016 13:18-0400 Height 154.94 cm [facility] Work Phone: 06-21-2016 13:18-0400 Pulse (Heart Rate) 81 /min [facility] Work [facility]: Comment on above: Pattern: Regular 06-21-2016 13:18-0400 Pulse Oximetry 97 % Corie Cadet [facility] Work Phone: Comment on above: Room air 06-21-2016 13:18-0400 Respiratory Rate 18 /min Zeldajoel Zunigay [facility] Work Phone: Comment on above: Pattern: Unlabored 06-21-2016 13:18-0400 SaO2% (BldA) [Mass fraction] 97 % Zelda Colin [facility]; [facility] Work Phone: Comment on above: Room air 06-21-2016 13:18-0400 Weight 53.24 kg Corie Cadet [facility] Work Phone: 12-08-2015 14:00-0400 BMI (Body Mass Index) 22.18 kg/m2 Tiffanie Palmer RN [facility] Work Phone: 12-08-2015 14:00-0400 Body Temperature 99.5 [degF] Tiffanie Palmer RN [facility] Work Phone: Comment on above: Method: Oral 12-08-2015 14:00-0400 Body weight 53.24 kg Tiffanie Palmer RN [facility] Work Phone: 12-08-2015 14:00-0400 BP Diastolic 64 mm[Hg] Tiffanie Palmer RN [facility] Work Phone: Comment on above: Patient Position: Sitting; Cuff Location : Left Arm; Cuff Size: Standard 12-08-2015 14:00-0400 BP Systolic 128 mm[Hg] Tiffanie Palmer RN [facility] Work Phone: Comment on above: Patient Position: Sitting; Cuff Location : Left Arm; Cuff Size: Standard 12-08-2015 14:00-0400 BSA (Body Surface Area) 1.51 m2 Tiffanie Palmer RN [facility] Work Phone: 12-08-2015 14:00-0400 Height 154.94 cm Tiffanie Palmer RN [facility] Work Phone: 12-08-2015 14:00-0400 Pulse (Heart Rate) 88 /min Tiffanie Palmer RN [facility] Work Phone: Comment on above: Pattern: Regular 12-08-2015 14:00-0400 Pulse Oximetry 98 % Corie Weisson [facility] Work Phone: Comment on above: Room air 12-08-2015 14:00-0400 Respiratory Rate 18 /min Tiffanie Palmer RN [facility] Work Phone: Comment on above: Pattern: Unlabored 12-08-2015 14:00-0400 SaO2% (BldA) [Mass fraction] 98 % Tiffanie Palmer RN [facility]; [facility] Work Phone: Comment on above: Room air 12-08-2015 14:00-0400 Weight 53.24 kg Corie Weisson [facility] Internal Medicine Work Phone: 11-08-2015 15:56-0500 BMI (Body Mass Index) 22.18 kg/m2 Christina Slarb TRAFFIC RATE CLERK [facility] Internal Medicine Work Phone: 11-08-2015 15:56-0500 Body Temperature 98.2 [degF] Christina Slarb TRAFFIC RATE CLERK [facility] Internal Medicine Work Phone: 11-08-2015 15:56-0500 Body weight 53.24 kg Christina Slarb TRAFFIC RATE CLERK [facility] Internal Medicine Work Phone: 11-08-2015 15:56-0500 BP Diastolic 72 mm[Hg] Christina Slarb TRAFFIC RATE CLERK [facility] Work Phone: Comment on above: Patient Position: Sitting; Cuff Location : Left Arm; Cuff Size: Standard 11-08-2015 15:56-0500 BP Systolic 104 mm[Hg] Christina Slarb TRAFFIC RATE CLERK [facility] Work Phone: Comment on above: Patient Position: Sitting; Cuff Location : Left Arm; Cuff Size: Standard 11-08-2015 15:56-0500 BSA (Body Surface Area) 1.51 m2 Christina Slarb TRAFFIC RATE CLERK [facility] Work Phone: 11-08-2015 15:56-0500 Height 154.94 cm Christina Slarb TRAFFIC RATE CLERK [facility] Work Phone: 11-08-2015 15:56-0500 Pulse (Heart Rate) 79 /min Christina Slarb TRAFFIC RATE CLERK [facility] Work Phone: Comment on above: Pattern: Regular 11-08-2015 15:56-0500 Pulse Oximetry 96 % Corie Cadet [facility] Internal Medicine Work Phone: Comment on above: Room air 11-08-2015 15:56-0500 Respiratory Rate 16 /min Christina Slarb TRAFFIC RATE CLERK [facility] Work Phone: Comment on above: Pattern: Unlabored 11-08-2015 15:56-0500 SaO2% (BldA) [Mass fraction] 96 % Christina Slarb TRAFFIC RATE CLERK [facility]; [facility] Work Phone: Comment on above: Room air 11-08-2015 15:56-0500 Weight 53.24 kg Corie Cadet [facility] Work Phone: 06-14-2015 09:44-0400 BMI (Body Mass Index) 21.23 kg/m2 Christina Slarb TRAFFIC RATE CLERK [facility] Work Phone: 06-14-2015 09:44-0400 Body Temperature 97.4 [degF] Christina Slarb TRAFFIC RATE CLERK [facility] Work Phone: 06-14-2015 09:44-0400 Body weight 50.97 kg Christina Slarb TRAFFIC RATE CLERK [facility] Work Phone: 06-14-2015 09:44-0400 BP Diastolic 72 mm[Hg] Christina Slarb TRAFFIC RATE CLERK [facility] Work Phone: Comment on above: Patient Position: Sitting; Cuff Location : Left Arm; Cuff Size: Standard 06-14-2015 09:44-0400 BP Systolic 114 mm[Hg] Christina Slarb TRAFFIC RATE CLERK [facility] Work Phone: Comment on above: Patient Position: Sitting; Cuff Location : Left Arm; Cuff Size: Standard 06-14-2015 09:44-0400 BSA (Body Surface Area) 1.48 m2 Christina Slarb TRAFFIC RATE CLERK [facility] Work Phone: 06-14-2015 09:44-0400 Height 154.94 cm Christina Sandhu SAADIA [facility] Work Phone: 06-14-2015 09:44-0400 Pulse (Heart Rate) 88 /min Christina Sandhu TRAFFIC RATE CLERK [facility] Work Phone: Comment on above: Pattern: Regular 06-14-2015 09:44-0400 Pulse Oximetry 97 % Corie Cadet [facility] Work Phone: Comment on above: Room air 06-14-2015 09:44-0400 Respiratory Rate 16 /min Christina Slacynthia ZEE [facility] Work Phone: Comment on above: Pattern: Unlabored 06-14-2015 09:44-0400 SaO2% (BldA) [Mass fraction] 97 % Christina Slacynthia ZEE [facility]; [facility] Work Phone: Comment on above: Room air 06-14-2015 09:44-0400 Weight 50.97 kg Corie Weisson [facility] Work Phone: 12-09-2014 16:01-0400 BMI (Body Mass Index) 20.85 kg/m2 Tiffanie Palmer RN [facility] Work Phone: 12-09-2014 16:01-0400 Body Temperature 98.3 [degF] Tiffanie Palmer RN [facility] Work Phone: Comment on above: Method: Temporal 12-09-2014 16:01-0400 Body weight 50.07 kg Tiffanie Palmer RN [facility] Work Phone: 12-09-2014 16:01-0400 BP Diastolic 72 mm[Hg] Tiffanie Palmer RN [facility] Work Phone: Comment on above: Patient Position: Sitting; Cuff Location : Left Arm; Cuff Size: Standard 12-09-2014 16:01-0400 BP Systolic 116 mm[Hg] Tiffanie Palmer RN [facility] Work Phone: Comment on above: Patient Position: Sitting; Cuff Location : Left Arm; Cuff Size: Standard 12-09-2014 16:01-0400 BSA (Body Surface Area) 1.47 m2 Tiffanie Palmer RN [facility] Work Phone: 12-09-2014 16:01-0400 Height 154.94 cm Tiffanie Palmer RN [facility] Work Phone: 12-09-2014 16:01-0400 Pulse (Heart Rate) 83 /min Tiffanie Palmer RN [facility] Work Phone: Comment on above: Pattern: Regular 12-09-2014 16:01-0400 Pulse Oximetry 97 % Corie Cadet [facility] Work Phone: Comment on above: Room air 12-09-2014 16:01-0400 Respiratory Rate 17 /min Tiffanie Palmer RN [facility] Work Phone: Comment on above: Pattern: Unlabored 12-09-2014 16:01-0400 SaO2% (BldA) [Mass fraction] 97 % Tiffanie Palmer RN [facility]; [facility] Work Phone: Comment on above: Room air 12-09-2014 16:01-0400 Weight 50.07 kg Corie Cadet [facility] Work Phone: 08-19-2014 16:19-0500 BMI (Body Mass Index) 20.68 kg/m2 Tiffanie Palmer RN [facility] Work Phone: 08-19-2014 16:19-0500 Body weight 49.64 kg Tiffanie Palmer RN [facility] Work Phone: 08-19-2014 16:19-0500 BP Diastolic 70 mm[Hg] Tiffanie Palmer RN [facility] Work Phone: Comment on above: Patient Position: Sitting; Cuff Location : Left Arm; Cuff Size: Small 08-19-2014 16:19-0500 BP Systolic 118 mm[Hg] Tiffanie Palmer RN [facility] Work Phone: Comment on above: Patient Position: Sitting; Cuff Location : Left Arm; Cuff Size: Small 08-19-2014 16:19-0500 BSA (Body Surface Area) 1.46 m2 Tiffanie Palmer RN [facility] Work Phone: 08-19-2014 16:19-0500 Height 154.94 cm Tiffanie Palmer RN [facility] Work Phone: 08-19-2014 16:19-0500 Pulse (Heart Rate) 78 /min Tiffanie Palmer RN [facility] Work Phone: Comment on above: Pattern: Regular 08-19-2014 16:19-0500 Pulse Oximetry 92 % Corie Cadet [facility] Work Phone: Comment on above: Room air 08-19-2014 16:19-0500 Respiratory Rate 16 /min Tiffanie Palmer RN [facility] Work Phone: Comment on above: Pattern: Unlabored 08-19-2014 16:19-0500 SaO2% (BldA) [Mass fraction] 92 % Tiffanie Palmer RN [facility]; [facility] Work Phone: Comment on above: Room air 08-19-2014 16:19-0500 Weight 49.64 kg Corie Cadet [facility] Work Phone: 06-30-2014 14:09-0400 BMI (Body Mass Index) 21.26 kg/m2 Fang Miguel ZEE [facility] Work Phone: 06-30-2014 14:09-0400 Body Temperature 97.8 [degF] Fang Miguel ZEE [facility] Work Phone: Comment on above: Method: Oral 06-30-2014 14:090400 Body weight 51.03 kg Fang Miguel ZEE [facility] Work Phone: 06-30-2014 14:09-0400 BP Diastolic 70 mm[Hg] Fang Miguel ZEE [facility] Work Phone: Comment on above: Patient Position: Sitting; Cuff Location : Left Arm; Cuff Size: Standard 06-30-2014 14:09-0400 BP Systolic 118 mm[Hg] Fang Miguel ZEE [facility] Work Phone: Comment on above: Patient Position: Sitting; Cuff Location : Left Arm; Cuff Size: Standard 06-30-2014 14:09-0400 BSA (Body Surface Area) 1.48 m2 Fang Rivera LPN [facility] Work Phone: 06-30-2014 14:09-0400 Height 154.94 cm Fang Rivera LPN [facility] Work Phone: 06-30-2014 14:09-0400 Pulse (Heart Rate) 76 /min Fang Rivera LPN [facility] Work Phone: Comment on above: Pattern: Regular 06-30-2014 14:09-0400 Pulse Oximetry 98 % Corie Cadet [facility] Work Phone: Comment on above: Room air 06-30-2014 14:09-0400 Respiratory Rate 16 /min Fang Rivera LPN [facility] Work Phone: 06-30-2014 14:09-0400 SaO2% (BldA) [Mass fraction] 98 % Fang Rivera LPN [facility]; [facility] Work Phone: Comment on above: Room air 06-30-2014 14:09-0400 Weight 51.03 kg Corie Cadet [facility] Work Phone: 01-02-2014 08:57-0400 BMI (Body Mass Index) 21.26 kg/m2 Tiffanie Palmer RN [facility] Work Phone: 01-02-2014 08:57-0400 Body weight 51.03 kg Tiffanie Palmer RN [facility] Work Phone: 01-02-2014 08:57-0400 BP Diastolic 62 mm[Hg] Tifafnie Palmer RN [facility] Work Phone: Comment on above: Patient Position: Sitting; Cuff Location : Left Arm; Cuff Size: Standard 01-02-2014 08:57-0400 BP Systolic 110 mm[Hg] Tiffanie Palmer RN [facility] Work Phone: Comment on above: Patient Position: Sitting; Cuff Location : Left Arm; Cuff Size: Standard 01-02-2014 08:57-0400 BSA (Body Surface Area) 1.48 m2 Tiffanie Palmer RN [facility] Work Phone: 01-02-2014 08:57-0400 Height 154.94 cm Tiffanie Palmer RN [facility] Work Phone: 01-02-2014 08:57-0400 Pulse (Heart Rate) 88 /min Tiffanie Palmer RN [facility] Work Phone: Comment on above: Pattern: Regular 01-02-2014 08:57-0400 Pulse Oximetry 96 % Corie Cadet [facility] Work Phone: Comment on above: Room air 01-02-2014 08:57-0400 Respiratory Rate 18 /min Tiffanie Palmer RN [facility] Work Phone: Comment on above: Pattern: Unlabored 01-02-2014 08:57-0400 SaO2% (BldA) [Mass fraction] 96 % Tiffanie Palmer RN [facility]; [facility] Work Phone: Comment on above: Room air 01-02-2014 08:57-0400 Weight 51.03 kg Corie Weisson [facility] Work Phone: 12-30-2013 09:31-0400 BMI (Body Mass Index) 21.26 kg/m2 Tiffanie Palmer RN [facility] Work Phone: 12-30-2013 09:31-0400 Body Temperature 98.5 [degF] Tiffanie Palmer RN [facility] Work Phone: Comment on above: Method: Oral 12-30-2013 09:31-0400 Body weight 51.03 kg Tiffanie Palmer RN [facility] Work Phone: 12-30-2013 09:31-0400 BP Diastolic 80 mm[Hg] Tiffanie Palmer RN [facility] Work Phone: Comment on above: Patient Position: Sitting; Cuff Location : Left Arm; Cuff Size: Standard 12-30-2013 09:31-0400 BP Systolic 110 mm[Hg] Tiffanie Palmer RN [facility] Work Phone: Comment on above: Patient Position: Sitting; Cuff Location : Left Arm; Cuff Size: Standard 12-30-2013 09:31-0400 BSA (Body Surface Area) 1.48 m2 Tiffanie Palmer RN [facility] Work Phone: 12-30-2013 09:31-0400 Height 154.94 cm Tiffanie Palmer RN [facility] Work Phone: 12-30-2013 09:31-0400 Pulse (Heart Rate) 72 /min Tiffanie Palmer RN [facility] Work Phone: Comment on above: Pattern: Regular 12-30-2013 09:31-0400 Pulse Oximetry 97 % Corie Cady [facility] Work Phone: Comment on above: Room air 12-30-2013 09:31-0400 Respiratory Rate 18 /min Tiffanie Palmer RN [facility] Work Phone: Comment on above: Pattern: Unlabored 12-30-2013 09:31-0400 SaO2% (BldA) [Mass fraction] 97 % Tiffanie Pamler RN [facility]; [facility] Work Phone: Comment on above: Room air 12-30-2013 09:31-0400 Weight 51.03 kg Corie Cadet [facility] Work Phone: 10-22-2013 16:18-0500 BMI (Body Mass Index) 21.84 kg/m2 Tiffanie Palmer RN [facility] Work Phone: 10-22-2013 16:18-0500 Body Temperature 98.3 [degF] Tiffanie Palmer RN [facility] Work Phone: Comment on above: Method: Oral 10-22-2013 16:18-0500 Body weight 52.42 kg Tiffanie Palmer RN [facility] Work Phone: 10-22-2013 16:18-0500 BP Diastolic 78 mm[Hg] Tiffanie Palmer RN [facility] Work Phone: Comment on above: Patient Position: Sitting; Cuff Location : Left Arm; Cuff Size: Standard 10-22-2013 16:18-0500 BP Systolic 120 mm[Hg] Tiffanie Palmer RN [facility] Work Phone: Comment on above: Patient Position: Sitting; Cuff Location : Left Arm; Cuff Size: Standard 10-22-2013 16:18-0500 BSA (Body Surface Area) 1.5 m2 Tiffanie Palmer RN [facility] Work Phone: 10-22-2013 16:18-0500 Height 154.94 cm Tiffanie Palmer RN [facility] Work Phone: 10-22-2013 16:18-0500 Pulse (Heart Rate) 71 /min Tiffanie Palmer RN [facility] Work Phone: Comment on above: Pattern: Regular 10-22-2013 16:18-0500 Pulse Oximetry 97 % Corie Cadet [facility] Work Phone: Comment on above: Room air 10-22-2013 16:18-0500 Respiratory Rate 18 /min Tiffanie Palmer RN [facility] Work Phone: Comment on above: Pattern: Unlabored 10-22-2013 16:18-0500 SaO2% (BldA) [Mass fraction] 97 % Tiffanie Palmer RN [facility]; [facility] Work Phone: Comment on above: Room air 10-22-2013 16:18-0500 Weight 52.42 kg Corie Cadet [facility] Work Phone: 07-15-2013 13:34-0400 BMI (Body Mass Index) 21.84 kg/m2 Fang Rivera SAADIA [facility] Work Phone: 07-15-2013 13:34-0400 Body Temperature 98.8 [degF] Fang Rivera SAADIA [facility] Work Phone: Comment on above: Method: Oral 07-15-2013 13:34-0400 Body weight 52.42 kg Fang Rivera SAADIA [facility] Work Phone: 07-15-2013 13:34-0400 BP Diastolic 70 mm[Hg] Fang Rivera SAADIA [facility] Work Phone: Comment on above: Patient Position: Sitting; Cuff Location : Left Arm; Cuff Size: Standard 07-15-2013 13:34-0400 BP Systolic 116 mm[Hg] Fang Rivera SAADIA [facility] Work Phone: Comment on above: Patient Position: Sitting; Cuff Location : Left Arm; Cuff Size: Standard 07-15-2013 13:34-0400 BSA (Body Surface Area) 1.5 m2 Fang Rivera LPN [facility] Work Phone: 07-15-2013 13:34-0400 Height 154.94 cm Fang Rivera LPN [facility] Work Phone: 07-15-2013 13:34-0400 Pulse (Heart Rate) 80 /min Fang Rivera LPN [facility] Work Phone: Comment on above: Pattern: Regular 07-15-2013 13:34-0400 Pulse Oximetry 98 % Corie Cadet [facility] Work Phone: Comment on above: Room air 07-15-2013 13:34-0400 Respiratory Rate 18 /min Fang Rivera LPN [facility] Work Phone: 07-15-2013 13:34-0400 SaO2% (BldA) [Mass fraction] 98 % Fang Rivera LPN [facility]; [facility] Work Phone: Comment on above: Room air 07-15-2013 13:34-0400 Weight 52.42 kg Corie Cadet [facility] Work Phone: 05-01-2013 11:28-0400 BMI (Body Mass Index) 21.84 kg/m2 Zeldajoel Shaw [facility] Work Phone: 05-01-2013 11:28-0400 Body Temperature 98.2 [degF] Zeldajoel Shaw [facility] Work Phone: Comment on above: Method: Oral 05-01-2013 11:28-0400 Body weight 52.42 kg Zeldajoel Zunigay [facility] Work Phone: 05-01-2013 11:28-0400 BP Diastolic 62 mm[Hg] [facility] Work Phone: Comment on above: Patient Position: Sitting; Cuff Location : Left Arm; Cuff Size: Standard 05-01-2013 11:28-0400 BP Systolic 116 mm[Hg] [facility] Work Phone: Comment on above: Patient Position: Sitting; Cuff Location : Left Arm; Cuff Size: Standard 05-01-2013 11:28-0400 BSA (Body Surface Area) 1.5 m2 Zelda Shaw [facility] Internal Medicine Work Phone: 05-01-2013 11:28-0400 Height 154.94 cm Zelda Shaw [facility] Medicine Work Phone: 05-01-2013 11:28-0400 Pulse (Heart Rate) 64 /min Zelda Shaw [facility] Work Phone: Comment on above: Pattern: Regular 05-01-2013 11:28-0400 Respiratory Rate 16 /min Zelda Shaw [facility] Internal [facility] Work Phone: Comment on above: Pattern: Unlabored 05-01-2013 11:28-0400 Weight 52.42 kg Corie Cadet [facility] Internal [facility] Work Phone: 04-23-2013 08:57-0400 BMI (Body Mass Index) 21.92 kg/m2 Tiffanie Palmer RN [facility] Work Phone: 04-23-2013 08:57-0400 Body Temperature 98.4 [degF] Tiffanie Palmer RN [facility] Work Phone: Comment on above: Method: Oral 04-23-2013 08:57-0400 Body weight 52.62 kg Tiffanie Palmer RN [facility] Work Phone: 04-23-2013 08:57-0400 BP Diastolic 60 mm[Hg] Tiffanie Palmer RN [facility] Work Phone: Comment on above: Patient Position: Sitting; Cuff Location : Left Arm; Cuff Size: Standard 04-23-2013 08:57-0400 BP Systolic 122 mm[Hg] Tiffanie Palmer RN [facility] Work Phone: Comment on above: Patient Position: Sitting; Cuff Location : Left Arm; Cuff Size: Standard 04-23-2013 08:57-0400 BSA (Body Surface Area) 1.5 m2 Tiffanie Palmer RN [facility] Work Phone: 04-23-2013 08:57-0400 Height 154.94 cm Tiffanie Palmer RN [facility] Work Phone: 04-23-2013 08:57-0400 Pulse (Heart Rate) 64 /min Tiffanie Palmer RN [facility] Work Phone: Comment on above: Pattern: Regular 04-23-2013 08:57-0400 Respiratory Rate 18 /min Tiffanie Palmer RN [facility] Work Phone: Comment on above: Pattern: Unlabored 04-23-2013 08:57-0400 Weight 52.62 kg Corie Cadet [facility] Work Phone: 01-27-2013 16:03-0400 BMI (Body Mass Index) 22.11 kg/m2 Tiffanie Palmer RN [facility] Work Phone: 01-27-2013 16:03-0400 Body weight 53.07 kg Tiffanie Palmer RN [facility] Work Phone: 01-27-2013 16:03-0400 BP Diastolic 62 mm[Hg] Tiffanie Palmer RN [facility] Work Phone: Comment on above: Patient Position: Sitting; Cuff Location : Left Arm; Cuff Size: Large 01-27-2013 16:03-0400 BP Systolic 122 mm[Hg] Tiffanie Palmer RN [facility] Work Phone: Comment on above: Patient Position: Sitting; Cuff Location : Left Arm; Cuff Size: Large 01-27-2013 16:03-0400 BSA (Body Surface Area) 1.5 m2 Tiffanie Palmer RN [facility] Work Phone: 01-27-2013 16:03-0400 Height 154.94 cm Tiffanie Palmer RN [facility] Work Phone: 01-27-2013 16:03-0400 Pulse (Heart Rate) 72 /min Tiffanie Palmer RN [facility] Work Phone: Comment on above: Pattern: Regular 01-27-2013 16:03-0400 Respiratory Rate 18 /min Tiffanie Palmer RN [facility] Work Phone: Comment on above: Pattern: Unlabored 01-27-2013 16:03-0400 Weight 53.07 kg Corie Cadet [facility] Work Phone: 12-30-2012 14:05-0400 BMI (Body Mass Index) 22.21 kg/m2 Fang Rivera LPN [facility] Work Phone: 12-30-2012 14:05-0400 Body Temperature 98.9 [degF] Fang Rivera LPN [facility] Work Phone: Comment on above: Method: Oral 12-30-2012 14:05-0400 Body weight 53.33 kg Fang Rivera LPN [facility] Work Phone: 12-30-2012 14:05-0400 BP Diastolic 68 mm[Hg] Fang Rivera LPN [facility] Work Phone: Comment on above: Patient Position: Sitting; Cuff Location : Left Arm; Cuff Size: Standard 12-30-2012 14:05-0400 BP Systolic 112 mm[Hg] Fang Rivera LPN [facility] Work Phone: Comment on above: Patient Position: Sitting; Cuff Location : Left Arm; Cuff Size: Standard 12-30-2012 14:05-0400 BSA (Body Surface Area) 1.51 m2 Fang Rivera LPN [facility] Work Phone: 12-30-2012 14:05-0400 Height 154.94 cm Fang Rivera LPN [facility] Work Phone: 12-30-2012 14:05-0400 Pulse (Heart Rate) 74 /min Fang Rivera LPN [facility] Work Phone: Comment on above: Pattern: Regular 12-30-2012 14:05-0400 Pulse Oximetry 96 % Corie Cadet [facility] Work Phone: Comment on above: Room air 12-30-2012 14:05-0400 Respiratory Rate 17 /min Fang Rivera LPN [facility] Work Phone: 12-30-2012 14:05-0400 SaO2% (BldA) [Mass fraction] 96 % Fang Willettmulugeta ZEE [facility]; [facility] Work Phone: Comment on above: Room air 12-30-2012 14:05-0400 Weight 53.33 kg Corie Cadet [facility] Work Phone: 12-11-2011 15:51-0400 BMI (Body Mass Index) 22.21 kg/m2 Tiffanie Palmer RN [facility] Work Phone: 12-11-2011 15:51-0400 Body weight 53.33 kg Tiffanie Palmer RN [facility] Work Phone: 12-11-2011 15:51-0400 BP Diastolic 70 mm[Hg] Tiffanie Palmer RN [facility] Work Phone: Comment on above: Patient Position: Sitting; Cuff Location : Left Arm; Cuff Size: Large 12-11-2011 15:51-0400 BP Systolic 108 mm[Hg] Tiffanie Palmer RN [facility] Work Phone: Comment on above: Patient Position: Sitting; Cuff Location : Left Arm; Cuff Size: Large 12-11-2011 15:51-0400 BSA (Body Surface Area) 1.51 m2 Tiffanie Palmer RN [facility] Work Phone: 12-11-2011 15:51-0400 Height 154.94 cm Tiffanie Palmer RN [facility] Work Phone: 12-11-2011 15:51-0400 Pulse (Heart Rate) 64 /min Tiffanie Palmer RN [facility] Work Phone: Comment on above: Pattern: Regular 12-11-2011 15:51-0400 Respiratory Rate 18 /min Tiffanie Palmer RN [facility] Work Phone: Comment on above: Pattern: Unlabored 12-11-2011 15:51-0400 Weight 53.33 kg Corie Cadet [facility] Work Phone: 12-04-2011 15:48-0400 BMI (Body Mass Index) 21.59 kg/m2 Tiffanie Palmer RN [facility] Work Phone: 12-04-2011 15:48-0400 Body weight 51.82 kg Tiffanie Palmer RN [facility] Work Phone: 12-04-2011 15:48-0400 BP Diastolic 86 mm[Hg] Tiffanie Palmer RN [facility] Work Phone: Comment on above: Patient Position: Sitting; Cuff Location : Left Arm; Cuff Size: Standard 12-04-2011 15:48-0400 BP Systolic 124 mm[Hg] iTffanie Palmer RN [facility] Work Phone: Comment on above: Patient Position: Sitting; Cuff Location : Left Arm; Cuff Size: Standard 12-04-2011 15:48-0400 BSA (Body Surface Area) 1.49 m2 Tiffanie Palmer RN [facility] Work Phone: 12-04-2011 15:48-0400 Height 154.94 cm Tiffanie Palmer RN [facility] Work Phone: 12-04-2011 15:48-0400 Pulse (Heart Rate) 68 /min Tiffanie Palmer RN [facility] Work Phone: Comment on above: Pattern: Regular 12-04-2011 15:48-0400 Respiratory Rate 20 /min Tiffanie Palmer RN [facility] Work Phone: Comment on above: Pattern: Unlabored 12-04-2011 15:48-0400 Weight 51.82 kg Corie Cadet [facility] Work Phone: 06-26-2011 16:26-0400 BMI (Body Mass Index) 21.59 kg/m2 Fang Rivera LPN [facility] Work Phone: 06-26-2011 16:26-0400 Body Temperature 99.2 [degF] Fang Rivera LPN [facility] Work Phone: Comment on above: Method: Oral 06-26-2011 16:26-0400 Body weight 51.82 kg Fang Miguel ZEE [facility] Work Phone: 06-26-2011 16:26-0400 BP Diastolic 70 mm[Hg] Fang Rivera LPN [facility] Work Phone: Comment on above: Patient Position: Sitting; Cuff Location : Left Arm; Cuff Size: Standard 06-26-2011 16:26-0400 BP Systolic 110 mm[Hg] Fang Rivera LPN [facility] Work Phone: Comment on above: Patient Position: Sitting; Cuff Location : Left Arm; Cuff Size: Standard 06-26-2011 [id number]:260400 BSA (Body Surface Area) 1.49 m2 Fang Rivera LPN [facility] Work Phone: 06-26-2011 16:26-0400 Height 154.94 cm Fang Rivera LPN [facility] Work Phone: 06-26-2011 16:26-0400 Pulse (Heart Rate) 72 /min Fang Rivera LPN [facility] Work Phone: Comment on above: Pattern: Regular 06-26-2011 16:26-0400 Respiratory Rate 16 /min Fang Rivera LPN [facility] Work Phone: Comment on above: Pattern: Unlabored 06-26-2011 16:26-0400 Weight 51.82 kg Corie Cadet [facility] Work Phone: 06-19-2011 16:14-0400 BMI (Body Mass Index) 21.4 kg/m2 Tiffanie Palmer RN [facility] Work Phone: 06-19-2011 16:14-0400 Body Temperature 98.5 [degF] Tiffanie Palmer RN [facility] Work Phone: Comment on above: Method: Oral 06-19-2011 16:14-0400 Body weight 51.8 kg Tiffanie Palmer RN [facility] Work Phone: 06-19-2011 16:14-0400 BP Diastolic 88 mm[Hg] Tiffanie Palmer RN [facility] Work Phone: Comment on above: Patient Position: Sitting; Cuff Location : Left Arm; Cuff Size: Large 06-19-2011 16:14-0400 BP Systolic 122 mm[Hg] Tiffanie Palmer RN [facility] Work Phone: Comment on above: Patient Position: Sitting; Cuff Location : Left Arm; Cuff Size: Large 06-19-2011 16:14-0400 BSA (Body Surface Area) 1.49 m2 Tiffanie Palmer RN [facility] Work Phone: 06-19-2011 16:140400 Height 155.57 cm Tiffanie Palmer RN [facility] Work Phone: 06-19-2011 16:14-0400 Pulse (Heart Rate) 68 /min Tiffanie Palmer RN [facility] Work Phone: Comment on above: Pattern: Regular 06-19-2011 16:14-0400 Respiratory Rate 16 /min Tiffanie Palmer RN [facility] Work Phone: Comment on above: Pattern: Unlabored 06-19-2011 16:14-0400 Weight 51.8 kg Corie Cadet [facility] Work Phone: 01-09-2011 16:04-0400 BMI (Body Mass Index) 21.36 kg/m2 Fang Rivera SAADIA [facility] Work Phone: 01-09-2011 16:04-0400 Body Temperature 97.6 [degF] Fang Rivera [employer]ATE CLERK [facility] Work Phone: Comment on above: Method: Oral 01-09-2011 16:04-0400 Body weight 51.71 kg Fang Rivera [employer]FF[employer] RATE CLERK [facility] Work Phone: 01-09-2011 16:04-0400 BP Diastolic 68 mm[Hg] Fang Rivera TRAFF[employer] RATE CLERK [facility] Work Phone: Comment on above: Patient Position: Sitting; Cuff Location : Left Arm; Cuff Size: Standard 01-09-2011 16:04-0400 BP Systolic 104 mm[Hg] Fang Rivera TRAFFIC RATE CLERK [facility] Work Phone: Comment on above: Patient Position: Sitting; Cuff Location : Left Arm; Cuff Size: Standard 01-09-2011 16:04-0400 BSA (Body Surface Area) 1.49 m2 Fang Rivera SAADIA [facility] Work Phone: 01-09-2011 16:04-0400 Height 155.57 cm Fang Rivera SAADIA [facility] Work Phone: 01-09-2011 16:04-0400 Pulse (Heart Rate) 78 /min Fang Rivera LPN [facility] Work Phone: Comment on above: Pattern: Regular 01-09-2011 16:04-0400 Respiratory Rate 15 /min Fang Rivera LPN [facility] Work Phone: Comment on above: Pattern: Unlabored 01-09-2011 16:04-0400 Weight 51.71 kg Corie Cadet [facility] Work Phone: 12-28-2010 15:28-0400 BMI (Body Mass Index) 21.36 kg/m2 Fang Rivera LPN [facility] Work Phone: 12-28-2010 15:28-0400 Body Temperature 98.1 [degF] Fang Rivera LPN [facility] Work Phone: Comment on above: Method: Oral 12-28-2010 15:-0400 Body weight 51.71 kg Fang Rivera LPN [facility] Work Phone: 12-28-2010 15:28-0400 BP Diastolic 68 mm[Hg] Fang Rivera LPN [facility] Work Phone: Comment on above: Patient Position: Sitting; Cuff Location : Left Arm; Cuff Size: Standard 12-28-2010 15:28-0400 BP Systolic 108 mm[Hg] Fang Rivera LPN [facility] Work Phone: Comment on above: Patient Position: Sitting; Cuff Location : Left Arm; Cuff Size: Standard 12-28-2010 15:28-0400 BSA (Body Surface Area) 1.49 m2 Fang Rivera LPN [facility] Work Phone: 12-28-2010 15:28-0400 Height 155.57 cm Fang Rivera LPN [facility] Work Phone: 12-28-2010 15:28-0400 Pulse (Heart Rate) 70 /min Fang Rivera LPN [facility] Work Phone: Comment on above: Pattern: Regular 12-28-2010 15:28-0400 Respiratory Rate 16 /min Fang Rivera SAADIA [facility] Work Phone: Comment on above: Pattern: Unlabored 12-28-2010 15:28-0400 Weight 51.71 kg Corie Cadet [facility] Work Phone: 12-19-2010 17:20-0400 BMI (Body Mass Index) 21.36 kg/m2 Meredith Hare [facility] Work Phone: 12-19-2010 17:20-0400 Body Temperature 97.9 [degF] Meredith Hare [facility] Work Phone: 12-19-2010 17:20-0400 Body weight 51.71 kg Meredith Payam [facility] Work Phone: 12-19-2010 17:20-0400 BP Diastolic 68 mm[Hg] Meredith Hare [facility] Work Phone: Comment on above: Patient Position: Sitting; Cuff Location : Left Arm; Cuff Size: Large 12-19-2010 17:20-0400 BP Systolic 100 mm[Hg] Meredith Hare [facility] Work Phone: Comment on above: Patient Position: Sitting; Cuff Location : Left Arm; Cuff Size: Large 12-19-2010 17:20-0400 BSA (Body Surface Area) 1.49 m2 Meredith Hare [facility] Work Phone: 12-19-2010 17:20-0400 Height 155.57 cm Meredith Hare [facility] Work Phone: 12-19-2010 17:20-0400 Pulse (Heart Rate) 80 /min Meredith Hare Com[facility] Work Phone: Comment on above: Pattern: Regular 12-19-2010 17:20-0400 Respiratory Rate 16 /min Meredith Hare [facility] Work Phone: Comment on above: Pattern: Unlabored 12-19-2010 17:20-0400 Weight 51.71 kg Corie Cadet [facility] Work Phone: 12-05-2010 16:07-0400 BMI (Body Mass Index) 21.95 kg/m2 Jyoti Elizondo RN [facility] Work Phone: Comment on above: lying 110/62, 60bpmsitting 108/62, 62bpm standing 108/58, 66bpm 12-05-2010 16:07-0400 Body Temperature 97.9 [degF] Jyoti Elizondo RN [facility] Work Phone: Comment on above: Method: Oral lying 110/62, 60bpms itting 108/62, 62bpmstanding 108/58, 66bpm 12-05-2010 16:07-0400 Body weight 54.43 kg Jyoti Elizondo RN [facility] Work Phone: Comment on above: lying 110/62, 60bpmsitting 108/62, 62bpm standing 108/58, 66bpm 12-05-2010 16:07-0400 BP Diastolic 62 mm[Hg] Jyoti Elizondo RN [facility] Work Phone: Comment on above: Patient Position: Sitting; Cuff Location : Left Arm; Cuff Size: Standard lying 110/62, 60bpms itting 108/62, 62bpmstanding 108/58, 66bpm 12-05-2010 16:07-0400 BP Systolic 110 mm[Hg] Jyoti Elizondo RN [facility] Work Phone: Comment on above: Patient Position: Sitting; Cuff Location : Left Arm; Cuff Size: Standard lying 110/62, 60bpms itting 108/62, 62bpmstanding 108/58, 66bpm 12-05-2010 16:07-0400 BSA (Body Surface Area) 1.54 m2 Jyoti Elizondo RN [facility] Work Phone: Comment on above: lying 110/62, 60bpmsitting 108/62, 62bpm standing 108/58, 66bpm 12-05-2010 16:07-0400 Height 157.48 cm Jyoti Elizondo RN [facility] Work Phone: Comment on above: lying 110/62, 60bpmsitting 108/62, 62bpm standing 108/58, 66bpm 12-05-2010 16:07-0400 Pulse (Heart Rate) 60 /min Jyoti Elizondo RN [facility] Work Phone: Comment on above: Pattern: Regular lying 110/62, 60bpms itting 108/62, 62bpmstanding 108/58, 66bpm 12-05-2010 16:07-0400 Respiratory Rate 16 /min Jyoti Elizondo RN [facility] Work Phone: Comment on above: Pattern: Unlabored lying 110/62, 60bpms itting 108/62, 62bpmstanding 108/58, 66bpm 12-05-2010 16:07-0400 Weight 54.43 kg Corie Cadet [facility] Work Phone: Comment on above: lying 110/62, 60bpmsitting 108/62, 62bpm standing 108/58, 66bpm 08-22-2010 16:03-0500 BMI (Body Mass Index) 21.29 kg/m2 Tiffanie Palmer RN [facility] Work Phone: 08-22-2010 16:03-0500 Body Temperature 98.2 [degF] Tiffanie Palmer RN [facility] Work Phone: Comment on above: Method: Oral 08-22-2010 16:03-0500 Body weight 52.79 kg Tiffanie Palmer RN [facility] Work Phone: 08-22-2010 16:03-0500 BP Diastolic 70 mm[Hg] Tiffanie Palmer RN [facility] Work Phone: Comment on above: Patient Position: Sitting; Cuff Location : Left Arm; Cuff Size: Standard 08-22-2010 16:03-0500 BP Systolic 108 mm[Hg] Tiffanie Palmer RN [facility] Work Phone: Comment on above: Patient Position: Sitting; Cuff Location : Left Arm; Cuff Size: Standard 08-22-2010 16:03-0500 BSA (Body Surface Area) 1.52 m2 Tiffanie Palmer RN [facility] Work Phone: 08-22-2010 16:03-0500 Height 157.48 cm Tiffanie Palmer RN [facility] Work Phone: 08-22-2010 16:03-0500 Pulse (Heart Rate) 60 /min Tiffanie Palmer RN [facility] Work Phone: Comment on above: Pattern: Regular 08-22-2010 16:03-0500 Respiratory Rate 20 /min Tiffanie Palmer RN [facility] Work Phone: Comment on above: Pattern: Unlabored 08-22-2010 16:03-0500 Weight 52.79 kg Corie Cadet [facility] Work Phone: 08-08-2010 16:06-0500 BMI (Body Mass Index) 21.49 kg/m2 Tiffanie Palmer RN [facility] Work Phone: 08-08-2010 16:06-0500 Body weight 53.3 kg Tiffanie Palmer RN [facility] Work Phone: 08-08-2010 16:06-0500 BP Diastolic 82 mm[Hg] Tiffanie Palmer RN [facility] Work Phone: Comment on above: Patient Position: Sitting; Cuff Location : Left Arm; Cuff Size: Standard 08-08-2010 16:06-0500 BP Systolic 122 mm[Hg] Tiffanie Palmer RN [facility] Work Phone: Comment on above: Patient Position: Sitting; Cuff Location : Left Arm; Cuff Size: Standard 08-08-2010 16:06-0500 BSA (Body Surface Area) 1.52 m2 Tiffanie Palmer RN [facility] Work Phone: 08-08-2010 16:06-0500 Height 157.48 cm Tiffanie Palmer RN [facility] Work Phone: 08-08-2010 16:06-0500 Pulse (Heart Rate) 60 /min Tiffanie Palmer RN [facility] Work Phone: Comment on above: Pattern: Regular 08-08-2010 16:06-0500 Respiratory Rate 18 /min Tiffanie Palmer RN [facility] Work Phone: Comment on above: Pattern: Unlabored 08-08-2010 16:06-0500 Weight 53.3 kg Corie Cadet [facility] Work Phone: 07-12-2010 16:27-0400 BMI (Body Mass Index) 21.49 kg/m2 Jyoti Elizondo RN [facility] Work Phone: 07-12-2010 16:27-0400 Body Temperature 98.2 [degF] Jyoti Elizondo RN [facility] Work Phone: Comment on above: Method: Oral 07-12-2010 16:27-0400 Body weight 53.3 kg Jyoti Elizondo RN [facility] Work Phone: 07-12-2010 16:27-0400 BP Diastolic 64 mm[Hg] Jyoti Elizondo RN [facility] Work Phone: Comment on above: Patient Position: Sitting; Cuff Location : Left Arm; Cuff Size: Standard 07-12-2010 16:27-0400 BP Systolic 112 mm[Hg] Jyoti Elizondo RN [facility] Work Phone: Comment on above: Patient Position: Sitting; Cuff Location : Left Arm; Cuff Size: Standard 07-12-2010 16:27-0400 BSA (Body Surface Area) 1.52 m2 Jyoti Elizondo RN [facility] Work Phone: 07-12-2010 16:27-0400 Height 157.48 cm Jyoti Elizondo RN [facility] Work Phone: 07-12-2010 16:27-0400 Pulse (Heart Rate) 64 /min Jyoti Elizondo RN [facility] Work Phone: Comment on above: Pattern: Regular 07-12-2010 16:27-0400 Respiratory Rate 18 /min Jyoti Elizondo RN [facility] Work Phone: Comment on above: Pattern: Unlabored 07-12-2010 16:27-0400 Weight 53.3 kg Corie Cadet [facility] Work Phone: 04-29-2010 13:04-0400 Body weight 51.46 kg Tiffanie Palmer RN [facility] Work Phone: 04-29-2010 13:04-0400 BP Diastolic 62 mm[Hg] Tiffanie Palmer RN [facility] Work Phone: Comment on above: Patient Position: Sitting; Cuff Location : Left Arm; Cuff Size: Standard 04-29-2010 13:04-0400 BP Systolic 108 mm[Hg] Tiffanie Palmer RN [facility] Work Phone: Comment on above: Patient Position: Sitting; Cuff Location : Left Arm; Cuff Size: Standard 04-29-2010 13:04-0400 Pulse (Heart Rate) 60 /min Tiffanie Palmer RN [facility] Work Phone: Comment on above: Pattern: Regular 04-29-2010 13:04-0400 Respiratory Rate 18 /min Tiffanie Palmer RN [facility] Work Phone: Comment on above: Pattern: Unlabored 04-29-2010 13:04-0400 Weight 51.46 kg Corie Cadet [facility] Work Phone: 10-25-2009 10:07-0500 Body Temperature 98.7 [degF] Tiffanie Palmer RN [facility] Work Phone: Comment on above: Method: Oral 10-25-2009 10:07-0500 BP Diastolic 70 mm[Hg] Tiffanie Palmer RN [facility] Work Phone: Comment on above: Patient Position: Sitting; Cuff Location : Left Arm; Cuff Size: Large 10-25-2009 10:07-0500 BP Systolic 118 mm[Hg] Tiffanie Palmer RN [facility] Work Phone: Comment on above: Patient Position: Sitting; Cuff Location : Left Arm; Cuff Size: Large 10-25-2009 10:07-0500 Pulse (Heart Rate) 60 /min Tiffanie Palmer RN [facility] Work Phone: Comment on above: Pattern: Regular 10-25-2009 10:07-0500 Respiratory Rate 16 /min Tiffanie Palmer RN [facility] Work Phone: Comment on above: Pattern: Unlabored 07-19-2009 17:13-0400 BMI (Body Mass Index) 21.67 kg/m2 Tiffanie Palmer RN [facility] Work Phone: 07-19-2009 17:13-0400 Body weight 53.75 kg Tiffanie Palmer RN [facility] Work Phone: 07-19-2009 17:13-0400 BP Diastolic 70 mm[Hg] Tiffanie Palmer RN [facility] Work Phone: Comment on above: Patient Position: Sitting; Cuff Location : Left Arm; Cuff Size: Large 07-19-2009 17:13-0400 BP Systolic 122 mm[Hg] Tiffanie Palmer RN [facility] Work Phone: Comment on above: Patient Position: Sitting; Cuff Location : Left Arm; Cuff Size: Large 07-19-2009 17:13-0400 BSA (Body Surface Area) 1.53 m2 Tiffanie Palmer RN [facility] Work Phone: 07-19-2009 17:13-0400 Head Circumference 0 cm Corie Cadet [facility] Work Phone: 07-19-2009 17:13-0400 Head Occipital-frontal circumference 0 cm Tiffanie Palmer RN [facility]; [facility] Work Phone: 07-19-2009 17:13-0400 Height 157.48 cm Tiffanie Palmer RN [facility] Work Phone: 07-19-2009 17:13-0400 Pulse (Heart Rate) 60 /min Tiffanie Palmer RN [facility] Work Phone: Comment on above: Pattern: Regular 07-19-2009 17:13-0400 Respiratory Rate 18 /min Tiffanie Palmer RN [facility] Work Phone: Comment on above: Pattern: Unlabored 07-19-2009 17:13-0400 Weight 53.75 kg Corie Cadet [facility] Work Phone: 04-14-2009 11:30-0400 BMI (Body Mass Index) 22.03 kg/m2 Tiffanie Palmer RN [facility] Work Phone: 04-14-2009 11:30-0400 Body weight 54.63 kg Tiffanie Palmer RN [facility] Work Phone: 04-14-2009 11:30-0400 BP Diastolic 70 mm[Hg] Tiffanie Palmer RN [facility] Work Phone: Comment on above: Patient Position: Sitting; Cuff Location : Left Arm; Cuff Size: Standard 04-14-2009 11:30-0400 BP Systolic 122 mm[Hg] Tiffanie Palmer RN [facility] Work Phone: Comment on above: Patient Position: Sitting; Cuff Location : Left Arm; Cuff Size: Standard 04-14-2009 11:30-0400 BSA (Body Surface Area) 1.54 m2 Tiffanie Palmer RN [facility] Work Phone: 04-14-2009 11:30-0400 Head Circumference 0 cm Corie Cadet [facility] Work Phone: 04-14-2009 11:30-0400 Head Occipital-frontal circumference 0 cm Tiffanie Palmer RN [facility]; [facility] Work Phone: 04-14-2009 11:30-0400 Height 157.48 cm Tiffanie Palmer RN [facility] Work Phone: 04-14-2009 11:30-0400 Pulse (Heart Rate) 80 /min Tiffanie Palmer RN [facility] Work Phone: Comment on above: Pattern: Regular 04-14-2009 11:30-0400 Respiratory Rate 20 /min Tiffanie Palmer RN [facility] Work Phone: Comment on above: Pattern: Unlabored 04-14-2009 11:30-0400 Weight 54.63 kg Corie Cadet [facility] Work Phone: 01-25-2009 16:34-0400 BMI (Body Mass Index) 21.4 kg/m2 Tiffanie Palmer RN [facility] Work Phone: 01-25-2009 16:34-0400 Body weight 53.07 kg Tiffanie Palmer RN [facility] Work Phone: 01-25-2009 16:34-0400 BP Diastolic 76 mm[Hg] Tiffanie Palmer RN [facility] Work Phone: Comment on above: Patient Position: Sitting; Cuff Location : Left Arm; Cuff Size: Large 01-25-2009 16:34-0400 BP Systolic 118 mm[Hg] Tiffanie Palmer RN [facility] Work Phone: Comment on above: Patient Position: Sitting; Cuff Location : Left Arm; Cuff Size: Large 01-25-2009 16:34-0400 BSA (Body Surface Area) 1.52 m2 Tiffanie Palmer RN [facility] Work Phone: 01-25-2009 16:34-0400 Head Circumference 0 cm Corie Cadet [facility] Work Phone: 01-25-2009 16:34-0400 Head Occipital-frontal circumference 0 cm Tiffanie Palmer RN [facility]; [facility] Work Phone: 01-25-2009 16:34-0400 Height 157.48 cm Tiffanie Palmer RN [facility] Work Phone: 01-25-2009 16:34-0400 Pulse (Heart Rate) 80 /min Tiffanie Palmer RN [facility] Work Phone: Comment on above: Pattern: Regular 01-25-2009 16:34-0400 Respiratory Rate 20 /min Tiffanie Palmer RN [facility] Work Phone: Comment on above: Pattern: Unlabored 01-25-2009 16:34-0400 Weight 53.07 kg Corie Cadet [facility] Work Phone: 09-09-2008 15:46-0500 Body weight 53.07 kg Tiffanie Palmer RN [facility] Work Phone: 09-09-2008 15:46-0500 BP Diastolic 60 mm[Hg] Tiffanie Palmer RN [facility] Work Phone: Comment on above: Patient Position: Sitting; Cuff Location : Left Arm; Cuff Size: Standard 09-09-2008 15:46-0500 BP Systolic 118 mm[Hg] Tiffanie Palmer RN [facility] Work Phone: Comment on above: Patient Position: Sitting; Cuff Location : Left Arm; Cuff Size: Standard 09-09-2008 15:46-0500 Head Circumference 0 cm Corie Cadet [facility] Work Phone: 09-09-2008 15:46-0500 Head Occipital-frontal circumference 0 cm Tiffanie Palmer RN [facility]; [facility] Work Phone: 09-09-2008 15:46-0500 Height 0 cm Tiffanie Palmer RN [facility] Work Phone: 09-09-2008 15:46-0500 Pulse (Heart Rate) 60 /min Tiffanie Palmer RN [facility] Work Phone: Comment on above: Pattern: Regular 09-09-2008 15:46-0500 Respiratory Rate 16 /min Tiffanie Palmer RN [facility] Work Phone: Comment on above: Pattern: Unlabored 09-09-2008 15:46-0500 Weight 53.07 kg Corie Cadet [facility] Work Phone: 05-26-2008 12:01-0400 Body Temperature 98.7 [degF] Debbie Esparza RN [facility] Work Phone: Comment on above: Method: Oral 05-26-2008 12:01-0400 Body weight 0 kg Debbie Esparza RN [facility] Work Phone: 05-26-2008 12:01-0400 BP Diastolic 62 mm[Hg] Debbie Esparza RN [facility] Work Phone: Comment on above: Patient Position: Sitting; Cuff Location : Left Arm; Cuff Size: Standard 05-26-2008 12:01-0400 BP Systolic 116 mm[Hg] Debbie Esparza RN [facility] Work Phone: Comment on above: Patient Position: Sitting; Cuff Location : Left Arm; Cuff Size: Standard 05-26-2008 12:01-0400 Head Circumference 0 cm Corie Cadet [facility] Work Phone: 05-26-2008 12:01-0400 Head Occipital-frontal circumference 0 cm Debbie Esparza RN [facility]; [facility] Work Phone: 05-26-2008 12:01-0400 Height 0 cm Debbie Esparza RN [facility] Work Phone: 05-26-2008 12:01-0400 Pulse (Heart Rate) 76 /min Debbie Esparza RN [facility] Work Phone: Comment on above: Pattern: Regular 05-26-2008 12:01-0400 Respiratory Rate 16 /min Debbie Esparza RN [facility] Work Phone: Comment on above: Pattern: Unlabored 05-26-2008 12:01-0400 Weight 0 kg Corie Cadet [facility] Work Phone: 04-13-2008 14:30-0400 Body Temperature 98.9 [degF] Debbie Esparza RN [facility] Work Phone: Comment on above: Method: Oral 04-13-2008 14:30-0400 Body weight 53.07 kg Debbie Esparza RN [facility] Work Phone: 04-13-2008 14:30-0400 BP Diastolic 84 mm[Hg] Debbie Esparza RN [facility] Work Phone: Comment on above: Patient Position: Sitting; Cuff Location : Right Arm; Cuff Size: Standard 04-13-2008 14:30-0400 BP Systolic 122 mm[Hg] Debbie Esparza RN [facility] Work Phone: Comment on above: Patient Position: Sitting; Cuff Location : Right Arm; Cuff Size: Standard 04-13-2008 14:30-0400 Head Circumference 0 cm Corie Weisson [facility] Work Phone: 04-13-2008 14:30-0400 Head Occipital-frontal circumference 0 cm Debbie Esparza RN [facility]; [facility] Work Phone: 04-13-2008 14:30-0400 Height 0 cm Debbie Esparza RN [facility] Work Phone: 04-13-2008 14:30-0400 Pulse (Heart Rate) 64 /min Debbie Esparza RN [facility] Work Phone: Comment on above: Pattern: Regular 04-13-2008 14:30-0400 Respiratory Rate 18 /min Debbie Esparza RN [facility] Work Phone: Comment on above: Pattern: Unlabored 04-13-2008 14:30-0400 Weight 53.07 kg Corie Weisson [facility] Work Phone: 12-30-2007 15:55-0400 BMI (Body Mass Index) 20.48 kg/m2 Tiffanie Palmer RN [facility] Work Phone: 12-30-2007 15:55-0400 Body Temperature 98.6 [degF] Tiffanie Palmer RN [facility] Work Phone: Comment on above: Method: Oral 12-30-2007 15:55-0400 Body weight 50.8 kg Tiffanie Palmer RN [facility] Work Phone: 12-30-2007 15:55-0400 BP Diastolic 68 mm[Hg] Tiffanie Palmer RN [facility] Work Phone: Comment on above: Patient Position: Sitting; Cuff Location : Right Arm; Cuff Size: Large 12-30-2007 15:55-0400 BP Systolic 118 mm[Hg] Tiffanie Palmer RN [facility] Work Phone: Comment on above: Patient Position: Sitting; Cuff Location : Right Arm; Cuff Size: Large 12-30-2007 15:55-0400 BSA (Body Surface Area) 1.49 m2 Tiffanie Palmer RN [facility] Work Phone: 12-30-2007 15:55-0400 Head Circumference 0 cm Corie Cadet [facility] Work Phone: 12-30-2007 15:55-0400 Head Occipital-frontal circumference 0 cm Tiffanie Palmer RN [facility]; [facility] Work Phone: 12-30-2007 15:55-0400 Height 157.48 cm Tiffanie Palmer RN [facility] Work Phone: 12-30-2007 15:55-0400 Pulse (Heart Rate) 60 /min Tiffanie Palmer RN [facility] Work Phone: Comment on above: Pattern: Regular 12-30-2007 15:55-0400 Respiratory Rate 16 /min Tiffanie Palmer RN [facility] Work Phone: Comment on above: Pattern: Unlabored 12-30-2007 15:55-0400 Weight 50.8 kg Corie Cadet [facility] Work Phone: 12-27-2007 14:54-0400 BMI (Body Mass Index) 20.48 kg/m2 Tiffanie Palmer RN [facility] Work Phone: 12-27-2007 14:54-0400 Body weight 50.8 kg Tiffanie Palmer RN [facility] Work Phone: 12-27-2007 14:54-0400 BP Diastolic 70 mm[Hg] Tiffanie Palmer RN [facility] Work Phone: Comment on above: Patient Position: Sitting; Cuff Location : Left Arm; Cuff Size: Standard 12-27-2007 14:54-0400 BP Systolic 104 mm[Hg] Tiffanie Palmer RN [facility] Work Phone: Comment on above: Patient Position: Sitting; Cuff Location : Left Arm; Cuff Size: Standard 12-27-2007 14:54-0400 BSA (Body Surface Area) 1.49 m2 Tiffanie Palmer RN [facility] Work Phone: 12-27-2007 14:54-0400 Head Circumference 0 cm Corie Cadet [facility] Work Phone: 12-27-2007 14:54-0400 Head Occipital-frontal circumference 0 cm Tiffanie Palmer RN [facility]; [facility] Work Phone: 12-27-2007 14:54-0400 Height 157.48 cm Tiffanie Palmer RN [facility] Work Phone: 12-27-2007 14:54-0400 Pulse (Heart Rate) 60 /min Tiffanie Palmer RN [facility] Work Phone: Comment on above: Pattern: Regular 12-27-2007 14:54-0400 Respiratory Rate 16 /min Tiffanie Palmer RN [facility] Work Phone: Comment on above: Pattern: Unlabored 12-27-2007 14:54-0400 Weight 50.8 kg Corie Cadet [facility] Work Phone: 11-25-2007 16:31-0500 BMI (Body Mass Index) 20.48 kg/m2 Tiffanie Palmer RN [facility] Work Phone: 11-25-2007 16:31-0500 Body weight 50.8 kg Tiffanie Palmer RN [facility] Work Phone: 11-25-2007 16:31-0500 BP Diastolic 64 mm[Hg] Tiffanie Palmer RN [facility] Work Phone: Comment on above: Patient Position: Sitting; Cuff Location : Left Arm; Cuff Size: Standard 11-25-2007 16:31-0500 BP Systolic 112 mm[Hg] Tiffanie Palmer RN [facility] Work Phone: Comment on above: Patient Position: Sitting; Cuff Location : Left Arm; Cuff Size: Standard 11-25-2007 16:31-0500 BSA (Body Surface Area) 1.49 m2 Tiffanie Palmer RN [facility] Work Phone: 11-25-2007 16:31-0500 Head Circumference 0 cm Corie Cadet [facility] Work Phone: 11-25-2007 16:31-0500 Head Occipital-frontal circumference 0 cm Tiffanie Palmer RN [facility]; [facility] Work Phone: 11-25-2007 16:31-0500 Height 157.48 cm Tiffanie Palmer RN [facility] Work Phone: 11-25-2007 16:31-0500 Pulse (Heart Rate) 88 /min Tiffanie Palmer RN [facility] Work Phone: Comment on above: Pattern: Regular 11-25-2007 16:31-0500 Respiratory Rate 16 /min Tiffanie Palmer RN [facility] Work Phone: Comment on above: Pattern: Unlabored 11-25-2007 16:31-0500 Weight 50.8 kg Corie Cadet [facility] Work Phone: 11-18-2007 10:41-0500 BMI (Body Mass Index) 20.48 kg/m2 Tiffanie Palmer RN [facility] Work Phone: 11-18-2007 10:41-0500 Body weight 50.8 kg Tiffanie Palmer RN [facility] Work Phone: 11-18-2007 10:41-0500 BP Diastolic 68 mm[Hg] Tiffanie Palmer RN [facility] Work Phone: Comment on above: Patient Position: Sitting; Cuff Location : Right Arm; Cuff Size: Standard 11-18-2007 10:41-0500 BP Systolic 122 mm[Hg] Tiffanie Palmer RN [facility] Work Phone: Comment on above: Patient Position: Sitting; Cuff Location : Right Arm; Cuff Size: Standard 11-18-2007 10:41-0500 BSA (Body Surface Area) 1.49 m2 Tiffanie Palmer RN [facility] Work Phone: 11-18-2007 10:41-0500 Head Circumference 0 cm Corie Cadet [facility] Work Phone: 11-18-2007 10:41-0500 Head Occipital-frontal circumference 0 cm Tiffanie Palmer RN [facility]; [facility] Work Phone: 11-18-2007 10:41-0500 Height 157.48 cm Tiffanie Palmer RN [facility] Work Phone: 11-18-2007 10:41-0500 Pulse (Heart Rate) 72 /min Tiffanie Palmer RN [facility] Work Phone: Comment on above: Pattern: Regular 11-18-2007 10:41-0500 Respiratory Rate 16 /min Tiffanie Palmer RN [facility] Work Phone: Comment on above: Pattern: Unlabored 11-18-2007 10:41-0500 Weight 50.8 kg Corie Cadet [facility] Work Phone: 08-28-2007 15:55-0500 BMI (Body Mass Index) 20.48 kg/m2 Tiffanie Palmer RN [facility] Work Phone: 08-28-2007 15:55-0500 Body weight 50.8 kg Tiffanie Palmer RN [facility] Work Phone: 08-28-2007 15:55-0500 BP Diastolic 78 mm[Hg] Tiffanie Palmer RN [facility] Work Phone: Comment on above: Patient Position: Sitting; Cuff Location : Left Arm; Cuff Size: Standard 08-28-2007 15:55-0500 BP Systolic 118 mm[Hg] Tiffanie Palmer RN [facility] Work Phone: Comment on above: Patient Position: Sitting; Cuff Location : Left Arm; Cuff Size: Standard 08-28-2007 15:55-0500 BSA (Body Surface Area) 1.49 m2 Tiffanie Palmer RN [facility] Work Phone: 08-28-2007 15:55-0500 Head Circumference 0 cm Corie Cadet [facility] Work Phone: 08-28-2007 15:55-0500 Head Occipital-frontal circumference 0 cm Tiffanie Palmer RN [facility]; [facility] Work Phone: 08-28-2007 15:55-0500 Height 157.48 cm Tiffanie Palmer RN [facility] Work Phone: 08-28-2007 15:55-0500 Pulse (Heart Rate) 88 /min Tiffanie Palmer RN [facility] Work Phone: Comment on above: Pattern: Regular 08-28-2007 15:55-0500 Respiratory Rate 16 /min Tiffanie Palmer RN [facility] Work Phone: Comment on above: Pattern: Unlabored 08-28-2007 15:55-0500 Weight 50.8 kg Corie Cadet [facility] Work Phone: 05-20-2007 10:58-0400 BMI (Body Mass Index) 20.48 kg/m2 Fang Miguel SAADIA [facility] Work Phone: 05-20-2007 10:58-0400 Body Temperature 98.1 [degF] Fang Rivera SAADIA [facility] Work Phone: Comment on above: Method: Oral 05-20-2007 10:58-0400 Body weight 50.8 kg Fang Rivera SAADIA [facility] Work Phone: 05-20-2007 10:58-0400 BP Diastolic 62 mm[Hg] Fang Rivera SAADIA [facility] Work Phone: Comment on above: Patient Position: Sitting; Cuff Location : Left Arm; Cuff Size: Standard 05-20-2007 10:58-0400 BP Systolic 108 mm[Hg] Fang Rivera SAADIA [facility] Work Phone: Comment on above: Patient Position: Sitting; Cuff Location : Left Arm; Cuff Size: Standard 05-20-2007 10:58-0400 BSA (Body Surface Area) 1.49 m2 Fang Rivera LPN [facility] Work Phone: 05-20-2007 10:58-0400 Head Circumference 0 cm Corie Cadet [facility] Work Phone: 05-20-2007 10:58-0400 Head Occipital-frontal circumference 0 cm Fang Rivera LPN [facility]; [facility] Work Phone: 05-20-2007 10:58-0400 Height 157.48 cm Fang Rivera LPN [facility] Work Phone: 05-20-2007 10:58-0400 Pulse (Heart Rate) 66 /min Fang Rivera LPN [facility] Work Phone: Comment on above: Pattern: Regular 05-20-2007 10:58-0400 Respiratory Rate 16 /min Fang Rivera LPN [facility] Work Phone: Comment on above: Pattern: Unlabored 05-20-2007 10:58-0400 Weight 50.8 kg Corie Cadet [facility] Work Phone: 05-08-2007 12:18-0400 BMI (Body Mass Index) 20.48 kg/m2 Tiffanie Palmer [facility] Work Phone: 05-08-2007 12:18-0400 Body Temperature 98.6 [degF] Tiffanie Palmer [facility] Work Phone: Comment on above: Method: Oral 05-08-2007 12:18-0400 Body weight 50.8 kg Tiffanie Palmer [facility] Work Phone: 05-08-2007 12:18-0400 BP Diastolic 60 mm[Hg] Tiffanie Palmer [facility] Work Phone: Comment on above: Patient Position: Sitting; Cuff Location : Left Arm; Cuff Size: Standard 05-08-2007 12:18-0400 BP Systolic 102 mm[Hg] Tiffanie Palmer [facility] Work Phone: Comment on above: Patient Position: Sitting; Cuff Location : Left Arm; Cuff Size: Standard 05-08-2007 12:18-0400 BSA (Body Surface Area) 1.49 m2 Tiffanie Palmer [facility] Work Phone: 05-08-2007 12:18-0400 Head Circumference 0 cm Corie Cadet [facility] Work Phone: 05-08-2007 12:18-0400 Head Occipital-frontal circumference 0 cm Tiffanie Palmer [facility]; [facility] Work Phone: 05-08-2007 12:18-0400 Height 157.48 cm Tiffanie Palmer [facility] Work Phone: 05-08-2007 12:18-0400 Pulse (Heart Rate) 64 /min Tiffanie Palmer [facility] Work Phone: Comment on above: Pattern: Regular 05-08-2007 12:18-0400 Respiratory Rate 16 /min Tiffanie Palmer [facility] Work Phone: Comment on above: Pattern: Unlabored 05-08-2007 12:18-0400 Weight 50.8 kg Corie Weisson [facility] Work Phone: 05-06-2007 10:48-0400 Body Temperature 98.3 [degF] Debbie Esparza RN [facility] Work Phone: Comment on above: Method: Oral 05-06-2007 10:48-0400 Body weight 50.8 kg Debbie Esparza RN [facility] Work Phone: 05-06-2007 10:48-0400 BP Diastolic 60 mm[Hg] Debbie Esparza RN [facility] Work Phone: Comment on above: Patient Position: Sitting; Cuff Location : Left Arm; Cuff Size: Standard 05-06-2007 10:48-0400 BP Systolic 92 mm[Hg] Debbie Esparza RN [facility] Work Phone: Comment on above: Patient Position: Sitting; Cuff Location : Left Arm; Cuff Size: Standard 05-06-2007 10:48-0400 Head Circumference 0 cm Corie Cadet [facility] Work Phone: 05-06-2007 10:48-0400 Head Occipital-frontal circumference 0 cm Debbie Esparza RN [facility]; [facility] Work Phone: 05-06-2007 10:48-0400 Height 0 cm Debbie Esparza RN [facility] Work Phone: 05-06-2007 10:48-0400 Pulse (Heart Rate) 76 /min Debbie Esparza RN [facility] Work Phone: Comment on above: Pattern: Regular 05-06-2007 10:48-0400 Respiratory Rate 16 /min Debbie Esparza RN [facility] Work Phone: Comment on above: Pattern: Unlabored 05-06-2007 10:48-0400 Weight 50.8 kg Corie Cadet [facility] Work Phone: 04-29-2007 15:20-0400 BMI (Body Mass Index) 20.9 kg/m2 Tiffanie Palmer [facility] Work Phone: 04-29-2007 15:20-0400 Body Temperature 98.3 [degF] Tiffanie Palmer [facility] Work Phone: Comment on above: Method: Oral 04-29-2007 15:20-0400 Body weight 51.82 kg Tiffanie Palmer [facility] Work Phone: 04-29-2007 15:20-0400 BP Diastolic 68 mm[Hg] Tiffanie Palmer [facility] Work Phone: Comment on above: Patient Position: Sitting; Cuff Location : Left Arm; Cuff Size: Standard 04-29-2007 15:20-0400 BP Systolic 110 mm[Hg] Tiffanie Palmer [facility] Work Phone: Comment on above: Patient Position: Sitting; Cuff Location : Left Arm; Cuff Size: Standard 04-29-2007 15:20-0400 BSA (Body Surface Area) 1.51 m2 Tiffanie Palmer [facility] Work Phone: 04-29-2007 15:20-0400 Head Circumference 0 cm Corie Cadet [facility] Work Phone: 04-29-2007 15:20-0400 Head Occipital-frontal circumference 0 cm Tiffanie Palmer [facility]; [facility] Work Phone: 04-29-2007 15:20-0400 Height 157.48 cm Tiffanie Palmer [facility] Work Phone: 04-29-2007 15:20-0400 Pulse (Heart Rate) 64 /min Tiffanie Palmer [facility] Work Phone: Comment on above: Pattern: Regular 04-29-2007 15:20-0400 Respiratory Rate 18 /min Tiffanie Palmer [facility] Work Phone: Comment on above: Pattern: Unlabored 04-29-2007 15:20-0400 Weight 51.82 kg Corie Cadet [facility] Work Phone: 04-01-2007 16:53-0400 Body Temperature 98.9 [degF] Debbie Esparza RN [facility] Work Phone: Comment on above: Method: Oral 04-01-2007 16:53-0400 Body weight 0 kg Debbie Esparza RN [facility] Work Phone: 04-01-2007 16:53-0400 BP Diastolic 68 mm[Hg] Debbie Esparza RN [facility] Work Phone: Comment on above: Patient Position: Sitting; Cuff Location : Left Arm; Cuff Size: Standard 04-01-2007 16:53-0400 BP Systolic 98 mm[Hg] Debbie Esparza RN [facility] Work Phone: Comment on above: Patient Position: Sitting; Cuff Location : Left Arm; Cuff Size: Standard 04-01-2007 16:53-0400 Head Circumference 0 cm Corie Cadet [facility] Work Phone: 04-01-2007 16:53-0400 Head Occipital-frontal circumference 0 cm Debbie Esparza RN [facility]; [facility] Work Phone: 04-01-2007 16:53-0400 Height 0 cm Debbie Esparza RN [facility] Work Phone: 04-01-2007 16:53-0400 Pulse (Heart Rate) 64 /min Debbie Esparza RN [facility] Work Phone: Comment on above: Pattern: Regular 04-01-2007 16:53-0400 Respiratory Rate 16 /min Debbie Esparza RN [facility] Work Phone: Comment on above: Pattern: Unlabored 04-01-2007 16:53-0400 Weight 0 kg Corie Weisson [facility] Work Phone: 10-29-2006 14:38-0500 Body Temperature 99.2 [degF] Debbie Esparza RN [facility] Work Phone: Comment on above: Method: Oral 10-29-2006 14:38-0500 Body weight 54.43 kg Debbie Esparza RN [facility] Work Phone: 10-29-2006 14:38-0500 BP Diastolic 70 mm[Hg] Debbie Esparza RN [facility] Work Phone: Comment on above: Patient Position: Sitting; Cuff Location : Right Arm; Cuff Size: Standard 10-29-2006 14:38-0500 BP Systolic 102 mm[Hg] Debbie Esparza RN [facility] Work Phone: Comment on above: Patient Position: Sitting; Cuff Location : Right Arm; Cuff Size: Standard 10-29-2006 14:38-0500 Head Circumference 0 cm Corie Weisson [facility] Work Phone: 10-29-2006 14:38-0500 Head Occipital-frontal circumference 0 cm Debbie Esparza RN [facility]; [facility] Work Phone: 10-29-2006 14:38-0500 Height 0 cm Debbie Esparza RN [facility] Work Phone: 10-29-2006 14:38-0500 Pulse (Heart Rate) 76 /min Debbie Esparza RN [facility] Work Phone: Comment on above: Pattern: Regular 10-29-2006 14:38-0500 Respiratory Rate 18 /min Debbei Esparza RN [facility] Work Phone: Comment on above: Pattern: Unlabored 10-29-2006 14:38-0500 Weight 54.43 kg Corie Weisson [facility] Work Phone: 10-15-2006 15:33-0500 Body weight 0 kg Madelin Kathleen LPN [facility] Work Phone: 10-15-2006 15:33-0500 BP Diastolic 70 mm[Hg] Madelin Kathleen [facility] Work Phone: Comment on above: Patient Position: Sitting; Cuff Location : Left Arm; Cuff Size: Standard 10-15-2006 15:33-0500 BP Systolic 110 mm[Hg] Madelin Kathleen [facility] Work Phone: Comment on above: Patient Position: Sitting; Cuff Location : Left Arm; Cuff Size: Standard 10-15-2006 15:33-0500 Head Circumference 0 cm Corie Weisson [facility] Work Phone: 10-15-2006 15:33-0500 Head Occipital-frontal circumference 0 cm Madelin Kathleen [facility]; [facility] Work Phone: 10-15-2006 15:33-0500 Height 0 cm Madelin Kathleen [facility] Work Phone: 10-15-2006 15:33-0500 Pulse (Heart Rate) 76 /min Madelin Kathleen [facility] Work Phone: Comment on above: Pattern: Regular 10-15-2006 15:33-0500 Respiratory Rate 16 /min Madelin Kathleen [facility] Work Phone: Comment on above: Pattern: Undefined 10-15-2006 15:33-0500 [facility]: 10-10-2006 11:37-0500 Body Temperature 98.8 [degF] Debbie Esparza RN [facility] Work Phone: Comment on above: Method: Oral 10-10-2006 11:37-0500 Body weight 0 kg Debbie Esparza RN [facility] Work Phone: 10-10-2006 11:37-0500 BP Diastolic 64 mm[Hg] Debbie Esparza RN [facility] Work Phone: Comment on above: Patient Position: Sitting; Cuff Location : Left Arm; Cuff Size: Standard 10-10-2006 11:37-0500 BP Systolic 94 mm[Hg] Debbie Esparza RN [facility] Work Phone: Comment on above: Patient Position: Sitting; Cuff Location : Left Arm; Cuff Size: Standard 10-10-2006 11:37-0500 Head Circumference 0 cm Corie Cadet [facility] Work Phone: 10-10-2006 11:37-0500 Head Occipital-frontal circumference 0 cm Debbie Esparza RN [facility]; [facility] Work Phone: 10-10-2006 11:37-0500 Height 0 cm Debbie Esparza RN [facility] Work Phone: 10-10-2006 11:37-0500 Pulse (Heart Rate) 68 /min Debbie Esparza RN [facility] Work Phone: Comment on above: Pattern: Regular 10-10-2006 11:37-0500 Respiratory Rate 20 /min Debbie Esparza RN [facility] Work Phone: Comment on above: Pattern: Unlabored 10-10-2006 11:37-0500 Weight 0 kg Corie Cadet [facility] Work Phone: 10-07-2006 21:44-0500 Body Temperature 98 [degF] Corie Cady DO Work Phone: [facility] Work Phone: Comment on above: Method: Oral 10-07-2006 21:44-0500 Body weight 0 kg Corie Cady DO Work Phone: [facility] Work Phone: 10-07-2006 21:44-0500 BP Diastolic 62 mm[Hg] Corie Cady DO Work Phone: [facility] Work Phone: Comment on above: Patient Position: Sitting; Cuff Location : Undefined; Cuff Size: Standard 10-07-2006 21:44-0500 BP Systolic 90 mm[Hg] Corie Cady DO Work Phone: [facility] Work Phone: Comment on above: Patient Position: Sitting; Cuff Location : Undefined; Cuff Size: Standard 10-07-2006 21:44-0500 Head Circumference 0 cm Corie Cadet [facility] Work Phone: 10-07-2006 21:44-0500 Head Occipital-frontal circumference 0 cm Corie Weisson DO Work Phone: [facility] Work Phone: 10-07-2006 21:44-0500 Height 0 cm Corie Cady DO Work Phone: [facility] Work Phone: 10-07-2006 21:44-0500 Pulse (Heart Rate) 64 /min Corie Cady DO Work Phone: [facility] Work Phone: Comment on above: Pattern: Regular 10-07-2006 21:44-0500 Pulse Oximetry 98 % Corie Cadet [facility] Work Phone: Comment on above: Room air 10-07-2006 21:44-0500 Respiratory Rate 14 /min Corie Weisson DO Work Phone: [facility] Work Phone: Comment on above: Pattern: Unlabored 10-07-2006 21:44-0500 SaO2% (BldA) [Mass fraction] 98 % Corie Cadet DO Work Phone: [facility] Work Phone: Comment on above: Room air 10-07-2006 21:44-0500 Weight 0 kg Corie Cadet [facility] Work Phone: Encounters Encounter Date Encounter Type Care Provider Facility Start: 02-06-2025 End: 02-06-[address] Alex Ovalles MD Work Phone: [facility] Work Phone: Start: 02-06-2025 End: 02-06-[address] 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 Alex Ovalles MD Work Phone: [facility] Work Phone: Start: 01-06-2025 End: 01-06-2025 Patient encounter procedure [facility] B[facility] -Radiology, [facility] Work Phone: Start: 01-06-2025 End: 01-06-2025 ambulatory [facility] Facility:[facility] Start: 11-24-2024 End: 11-24-[address] Alex Ovalles MD Work Phone: [facility] Work Phone: Start: 11-24-2024 End: 11-24-[address] Alex Ovalles MD -Laboratory, Phy Office 3rd Flr Start: 11-24-2024 End: 11-24-2024 ambulatory Alex Ovalles Facility:[facility] Start: 09-21-2024 End: 09-21-2024 Emergency department patient visit Darelldenny Davidson -Emergency Department Work Phone: Start: 08-08-2024 End: 08-08-2024 ambulatory JOE SIDDIQI Facility:[facility] Start: 08-08-2024 End: 08-08-2024 Patient encounter procedure Joseph Caceres OD Work Phone: Ophthalmology Comment on above: Herpes simplex dendr itic keratitis (Primary Dx); Dry eye syndrome of bilateral lacrimal glands; Pseudophakia Start: 07-04-2024 End: 07-04-2024 ambulatory Alex [facility] Facility:[facility] Start: 06-25-2024 End: 06-25-[address] [facility] Facility:[facility] Start: 05-27-2024 End: 05-27-2024 ambulatory [facility] Facility:[facility] Start: 04-17-2024 End: 04-17-2024 ambulatory Alex Michael Ovalles Facility:[facility] Start: 04-15-2024 End: 04-15-2024 ambulatory JOE SIDDIQI Facility:[facility] Start: 04-15-2024 End: 04-15-2024 Patient encounter procedure Joe Siddiqi MD Work Phone: Ophthalmology Comment on above: Dendritic corneal ul cer (Primary Dx); Herpes simplex dendritic keratitis Start: 01-14-2024 End: 01-15-2024 ambulatory ERIKA SUN MD Facility: Start: 01-14-2024 End: 01-14-2024 Patient encounter procedure ERIKA SUN MD [facility] Start: 01-09-2024 End: 01-09-2024 Patient encounter procedure Joe Siddiqi MD Work Phone: Ophthalmology Comment on above: Dendritic corneal ul cer (Primary Dx); Herpes simplex dendritic keratitis Start: 12-12-2023 End: 12-12-2023 Patient encounter procedure Joe Siddiqi MD Work Phone: Ophthalmology Comment on above: Dendritic corneal ul cer (Primary Dx); Herpes simplex dendritic keratitis Start: 12-04-2023 End: 12-04-2023 Patient encounter procedure Joe Siddiqi MD Work Phone: Ophthalmology Comment on above: Dendritic corneal ul cer (Primary Dx); Herpes simplex dendritic keratitis; Pseudophakia; Osteoarthritis, unspecified osteoarthritis type, unspecified site Start: 11-29-2023 End: 11-29-2023 Patient encounter procedure Joe Siddiqi MD Work Phone: Ophthalmology Comment on above: Dendritic corneal ul cer (Primary Dx); Herpes simplex dendritic keratitis; Pseudophakia; Osteoarthritis, unspecified osteoarthritis type, unspecified site Start: 11-21-2023 End: 11-21-2023 Patient encounter procedure Joe Siddiqi MD Work Phone: Ophthalmology Comment on above: Dendritic corneal ul cer (Primary Dx); Herpes simplex dendritic keratitis; Pseudophakia Start: 11-06-2023 End: 11-06-2023 ambulatory [facility] Work Phone: Start: 11-06-2023 End: 11-06-2023 Patient encounter procedure [facility]-Laboratory, Phy Office 3rd Flr Start: 05-14-2023 End: 05-14-2023 ambulatory [facility] Work Phone: Start: 05-14-2023 End: 05-14-2023 Patient encounter procedure [facility]-Laboratory, Phy Office 3rd Flr Start: 05-13-2023 End: 05-13-2023 Emergency department patient visit [facility]-Emergency Department Work Phone: Start: 05-02-2023 End: 05-02-2023 ambulatory [facility] Work Phone: Start: 05-02-2023 End: 05-02-2023 Patient encounter procedure [facility]-Cat Scan, [facility] Work Phone: Start: 03-18-2023 End: 03-18-2023 Emergency department patient visit [facility]-Emergency Department Work Phone: Start: 02-26-2023 End: 02-26-2023 Patient encounter procedure [facility]-Laboratory Work Phone: Start: 02-23-2023 End: 02-23-2023 Corie Cadet DO Work Phone: [facility] Start: 02-22-2023 End: 02-23-2023 Office outpatient visit 25 minutes Corie Cadet DO Work Phone: [facility] Start: 02-22-2023 Corie Echeverria n DO Work Phone: [facility] Start: 12-17-2022 Documentation procedure Mammog johnny Coordinator [facility] Start: 12-17-2022 Letter encounter Mammography Coordinator [facility] Department Start: 12-15-2022 End: 12-15-2022 Subsequent hospital visit by physician Screen Mammo [facility] M[facility]ogram Comment on above: Encounter for screen ing mammogram for malignant neoplasm of breast [Z12.31] Start: 11-17-2022 End: 11-17-[address] Corie Cadet Work Phone: [facility] Work Phone: Start: 11-17-2022 End: 11-17-[address] Corie Cadet Work Phone: [facility]-Laboratory Start: 07-31-2022 End: 07-31-2022 Non-patient / Non-visit Dr. Corie Cadet Work Phone: [facility] Start: 07-31-2022 End: 07-31-[address] Corie Cadet Work Phone: [facility]-Pulmonary Services/Neurology Start: 07-14-2022 Telephone encounter [place] xie APRN.CNP Work Phone: OB/Gynecology Comment on above: Orders Start: 06-19-2022 Non-patient / Non-visit Dr. Maynor Cadet Work Phone: [facility] Start: 06-19-2022 End: 06-19-[address] Corie Cadet Work Phone: [facility] Work Phone: Start: 06-19-2022 End: 06-19-[address] Corie Cadet Work Phone: [facility]-Cardiovascula r Services Start: 05-24-2022 End: 05-24-2022 Corie Cadet DO Work Phone: [facility] Start: 05-22-2022 End: 05-22-2022 Office outpatient visit 40 minutes Corie Cadet DO Work Phone: [facility] Start: 05-08-2022 End: 05-08-[address] Corie Cadet Work Phone: [facility] Work Phone: Start: 05-08-2022 End: 05-08-[address] Corie Cadet Work Phone: [facility] Start: 10-03-2021 End: 10-03-2021 Office outpatient visit 25 minutes Corie Cady DO Work Phone: [facility] Start: 07-18-2021 End: 07-18-2021 Office outpatient visit 15 minutes Corie Cady DO Work Phone: [facility] Start: 07-04-2021 End: 07-04-2021 Office outpatient visit 25 minutes Corie Cady DO Work Phone: [facility] Start: 06-15-2021 End: 06-15-2021 Office outpatient visit 25 minutes Corie Cady DO Work Phone: [facility] Start: 03-03-2021 End: 03-04-2021 Office outpatient visit 15 minutes Corie Cady DO Work Phone: [facility] Start: 03-03-2021 Review Corie Iselao n DO Work Phone: [facility] Start: 07-01-2020 End: 07-01-2020 Office outpatient visit 15 minutes Corie Cady [facility] Start: 07-01-2020 Review Corie Cady [facility] Start: 11-06-2019 End: 11-06-2019 Phone Encounter Corie Cadet [facility] Start: 11-06-2019 End: 11-06-2019 Corie Cady DO Work Phone: [facility] Start: 11-03-2019 End: 11-03-2019 Office outpatient visit 15 minutes Corie Cadet [facility] Start: 06-23-2019 End: 06-23-2019 Office outpatient visit 15 minutes Corie Cadet [facility] Start: 02-18-2019 End: 02-18-2019 Office outpatient visit 15 minutes Corie Cady [facility] Start: 02-18-2019 Review Corie Cady [facility] Start: 11-26-2018 Patient encounter procedure Corie Cadet [facility] Start: 11-26-2018 End: 11-26-2018 Office outpatient visit 15 minutes Corie Cadet [facility] Start: 06-14-2018 End: 06-14-2018 Office outpatient visit 25 minutes Corie Cadet [facility] Start: 07-02-2017 End: 07-02-2017 Office outpatient visit 15 minutes Corie [facility] Start: 04-16-2017 End: 04-16-2017 Phone Encounter Corie Cadet [facility] Start: 04-16-2017 End: 04-16-2017 Coriesergio Cadet DO Work Phone: [facility] Start: 04-10-2017 End: 04-10-2017 Office outpatient visit 15 minutes Corie Cadet [facility] Start: 07-31-2016 End: 07-31-2016 Office outpatient visit 15 minutes Corie Cadet [facility] Start: 07-05-2016 End: 07-05-2016 Lab Order Corie Cadet [facility] Start: 07-05-2016 End: 07-05-2016 Corie Cady DO Work Phone: [facility] Start: 06-21-2016 End: 06-21-2016 Office outpatient visit 10 minutes Corie Cadet [facility] Start: 12-10-2015 End: 12-10-2015 Annotation/Addendum Corie Cadet [facility] Start: 12-10-2015 End: 12-10-2015 Coriesergio Cadet DO Work Phone: [facility] Start: 12-08-2015 End: 12-08-2015 Office outpatient visit 15 minutes Corie Caedt [facility] Start: 11-08-2015 End: 11-08-2015 Office outpatient visit 15 minutes Corie [facility] Start: 06-14-2015 End: 06-14-2015 Office outpatient visit 25 minutes Corie Cadet [facility] Start: 06-14-2015 End: 06-14-2015 Preprocedural examination done Corie Cadet DO Work Phone: [facility] Start: 12-09-2014 End: 12-09-2014 Office outpatient visit 25 minutes Corie Cadet [facility] Start: 08-19-2014 End: 08-19-2014 Office outpatient visit 25 minutes Corie Cadet [facility] Start: 06-30-2014 End: 06-30-2014 Office outpatient visit 15 minutes Corie Cadet [facility] Start: 01-02-2014 End: 01-02-2014 Patient encounter procedure Corie Cadet [facility] Start: 01-02-2014 End: 01-02-2014 Corieadry Cadet DO Work Phone: [facility] Start: 12-30-2013 End: 12-30-2013 Patient encounter procedure Corie Cadet [facility] Start: 12-30-2013 End: 12-30-2013 Corie Cadet DO Work Phone: [facility] Start: 10-22-2013 End: 10-22-2013 Patient encounter procedure Corie Cadet [facility] Start: 10-22-2013 End: 10-22-2013 Corieadry Cadet DO Work Phone: [facility] Start: 07-15-2013 End: 07-15-2013 Office outpatient visit 25 minutes Corie Cadet [facility] Start: 05-01-2013 End: 05-01-2013 Patient encounter procedure Corie Cadet [facility] Start: 05-01-2013 End: 05-01-2013 Corie Cadet DO Work Phone: [facility] Start: 04-23-2013 End: 04-23-2013 Patient encounter procedure Corie Cadet [facility] Start: 04-23-2013 End: 04-23-2013 Corie Cadet DO Work Phone: [facility] Start: 01-27-2013 End: 01-27-2013 Patient encounter procedure Corie Cadet [facility] Start: 01-27-2013 End: 01-27-2013 Corie Cadet DO Work Phone: [facility] Start: 12-30-2012 End: 12-30-2012 Patient encounter procedure Corie Cadet [facility] Start: 12-30-2012 End: 12-30-2012 Corieadry Cdaet DO Work Phone: [facility] Start: 12-09-2012 End: 12-09-2012 Office outpatient visit 15 minutes Corie Cadet [facility] Start: 12-15-2011 End: 12-15-2011 Phone Encounter Corie Cadet [facility] Start: 12-15-2011 End: 12-15-2011 Corie Cadet DO Work Phone: [facility] Start: 12-11-2011 End: 12-11-2011 Patient encounter procedure Corie Cadet [facility] Start: 12-11-2011 End: 12-11-2011 Corie Cadet DO Work Phone: [facility] Start: 12-04-2011 End: 12-04-2011 Patient encounter procedure Corie Cadet [facility] Start: 12-04-2011 End: 12-04-2011 Corie Cadet DO Work Phone: [facility] Start: 06-26-2011 End: 06-26-2011 Office outpatient visit 25 minutes Corie Cadet [facility] Start: 06-26-2011 End: 06-26-2011 Preprocedural examination done Corie Cadet DO Work Phone: [facility] Start: 06-19-2011 End: 06-19-2011 Patient encounter procedure Corie Cadte [facility] Start: 06-19-2011 End: 06-19-2011 Corie Cadet DO Work Phone: [facility] Start: 01-09-2011 End: 01-09-2011 Office outpatient visit 15 minutes Corie Cadet [facility] Start: 01-05-2011 End: 01-05-2011 Phone Encounter Corie Cadet [facility] Start: 01-05-2011 End: 01-05-2011 Corie Cadet DO Work Phone: [facility] Start: 12-30-2010 End: 12-30-2010 Annotation/Addendum Corie Cadet [facility] Start: 12-30-2010 End: 12-30-2010 Corie Cadet DO Work Phone: [facility] Start: 12-28-2010 End: 12-28-2010 Office outpatient visit 25 minutes Corie Cadet [facility] Start: 12-19-2010 End: 12-19-2010 Patient encounter procedure Corie Cadet [facility] Start: 12-19-2010 End: 12-19-2010 Corie Cadet DO Work Phone: [facility] Start: 12-05-2010 End: 12-05-2010 Office outpatient visit 25 minutes Corie Cadet [facility] Start: 08-22-2010 End: 08-22-2010 Patient encounter procedure Corie Cadet [facility] Start: 08-22-2010 End: 08-22-2010 Corie Cadet DO Work Phone: [facility] Start: 08-08-2010 End: 08-08-2010 Patient encounter procedure Corie Cadet [facility] Start: 08-08-2010 End: 08-08-2010 Corie Cadet DO Work Phone: [facility] Start: 07-12-2010 End: 07-12-2010 Patient encounter procedure Corie Caedt [facility] Start: 07-12-2010 End: 07-12-2010 Corie Cadet DO Work Phone: [facility] Start: 04-29-2010 End: 04-29-2010 Patient encounter procedure Corie Cadet [facility] Start: 04-29-2010 End: 04-29-2010 Corie Cadet DO Work Phone: [facility] Start: 10-25-2009 End: 10-25-2009 Patient encounter procedure Corie Cadet [facility] Start: 10-25-2009 End: 10-25-2009 Corie Cadet DO Work Phone: [facility] Start: 08-06-2009 End: 08-06-2009 Historical Summary Corie Caedt [facility] Start: 08-06-2009 End: 08-06-2009 Corie Cadet DO Work Phone: [facility] Start: 07-28-2009 End: 07-28-2009 Historical Summary Corie Cadet [facility] Start: 07-28-2009 End: 07-28-2009 Corie Cadet DO Work Phone: [facility] Start: 07-19-2009 End: 07-19-2009 Patient encounter procedure Corie Cadet [facility] Start: 07-19-2009 End: 07-19-2009 Corie Cadet DO Work Phone: [facility] Start: 05-07-2009 End: 05-07-2009 Historical Summary Corie Cadet [facility] Start: 05-07-2009 End: 05-07-2009 Corie Cadet DO Work Phone: [facility] Start: 04-14-2009 End: 04-14-2009 Office outpatient visit 25 minutes Corie Cadet [facility] Start: 01-25-2009 End: 01-25-2009 Office outpatient visit 25 minutes Corie Cadet [facility] Start: 09-09-2008 End: 09-09-2008 Patient encounter procedure Corie Cadet [facility] Start: 09-09-2008 End: 09-09-2008 Corie Cadet DO Work Phone: [facility] Start: 05-26-2008 End: 05-26-2008 Office outpatient visit 25 minutes Corie Cadet [facility] Start: 04-13-2008 End: 04-13-2008 Office outpatient visit 25 minutes Corie Cadet [facility] Start: 12-30-2007 End: 12-30-2007 Phone Encounter Corie Cadet [facility] Start: 12-30-2007 End: 12-30-2007 Corie Cadet DO Work Phone: [facility] Start: 12-30-2007 End: 12-30-2007 Office outpatient visit 25 minutes Corie Cadet [facility] Start: 12-27-2007 End: 12-27-2007 Office outpatient visit 25 minutes Corie Cadet [facility] Start: 11-25-2007 End: 11-25-2007 Patient encounter procedure Corie Cadet [facility] Start: 11-25-2007 End: 11-25-2007 Corie Cadet DO Work Phone: [facility] Start: 11-18-2007 End: 11-18-2007 Patient encounter procedure Corie Cadet [facility] Start: 11-18-2007 End: 11-18-2007 Corie Cadet DO Work Phone: [facility] Start: 08-28-2007 End: 08-28-2007 Office outpatient visit 40 minutes Corie Cadet [facility] Start: 05-20-2007 End: 05-20-2007 Office outpatient visit 25 minutes Corie Cadet [facility] Start: 05-08-2007 End: 05-08-2007 Office outpatient visit 15 minutes Corie Cadet [facility] Start: 05-06-2007 End: 05-06-2007 Office outpatient visit 10 minutes Corie Cadet [facility] Start: 04-29-2007 End: 04-29-2007 Patient encounter procedure Corie Cadet [facility] Start: 04-29-2007 End: 04-29-2007 Corie Cadet DO Work Phone: [facility] Start: 04-01-2007 End: 04-01-2007 Office outpatient visit 25 minutes Corie Cadet [facility] Start: 03-25-2007 End: 03-26-2007 Error Encounter Corie Cadet [facility] Start: 03-25-2007 End: 03-26-2007 Corie Cadet DO Work Phone: [facility] Start: 10-29-2006 End: 10-29-2006 Office outpatient visit 15 minutes Corie Cadet [facility] Start: 10-22-2006 End: 10-22-2006 Historical Summary Corie Cadet [facility] Start: 10-22-2006 End: 10-22-2006 Corie Cadet DO Work Phone: [facility] Start: 10-15-2006 End: 10-15-2006 Office outpatient visit 10 minutes Corie Cadet [facility] Start: 10-10-2006 End: 10-10-2006 Office outpatient visit 25 minutes Corie Weisson [facility] Start: 10-07-2006 End: 10-07-2006 Office outpatient new 60 minutes Corie Cady [facility] Preprocedural examination done Sasha Lambert TRAFFIC RATE CLERK [facility] Work Phone: Comment on above: With Dr. 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 Alex Ovalles MD Work Phone: Start: 11-24-2024 Vitamin D, 25-hydroxy measurement Dr. Alex Ovalles MD Work Phone: Comment on above: Vitamin D StatusDeficiency: <20 ng/mL (5 0nmol/L)Insufficiency: 20-30 ng/mL (50-75 nmol/L)Sufficiency: 30-100 ng/mL (75-250 nmol/L)Toxicity: >100 ng/mL (>250 nmol/L) Start: 09-21-2024 SARS-CoV-2, Influenza & RSV (PCR) Dr. Alex Ovalles MD Work Phone: Start: 09-21-2024 X-ray of chest, PA and lateral views Dr. Alex Ovalles MD Work Phone: Start: 05-14-2023 Investigation of transfusion reaction Start: 05-14-2023 Microbial culture, routine Start: 05-13-2023 Plain X-ray of tibia and fibula Start: 05-02-2023 CT of abdomen and pelvis without contrast Start: 05-02-2023 Urine culture Start: 03-18-2023 Urine culture Start: 03-18-2023 CT of abdomen and pelvis without contrast Start: 03-18-2023 End: 03-18-2023 Procedure Note: See Note; NOTES: [facility] Imaging Services [address] [place] [address] Abdomen/Pelvis without Cont MR#: [id number] Acct: [id number] Name: SARAH CHÁVEZ Rep #: [id number] : [id number] F [id number] From: Jonah Higginbotham MD PCP: Dr. Corie Cadet, DO Status: REG ER Study: Abdomen/Pelvis without Cont Date of Exam: 02/23 02/13 Exam# [id number] Ordering Dr: Ramón Ha DO STUDY: CT ABDOMEN AND PELVIS WITHOUT CONTRAST REASON FOR EXAM: Female, 67 years old. Flank pain RADIATION DOSAGE (If Supplied By Facility): CTDIvol = ( 6.04 ) mGy, DLP = ( 271.8 ) mGycm TECHNIQUE: Transaxial images were obtained from the dome of the diaphragm to the symphysis pubis without oral contrast, and without intravenous contrast. Sagittal and coronal images were reconstructed. Individualized dose optimization techniques were used for this CT. COMPARISON: 10/14/2021 FINDINGS: There are chronic interstitial fibrotic changes of the lung bases. The visualized portions of the heart are within normal limits. Normal liver. There are surgical clips in the gallbladder fossa consistent with a prior cholecystectomy. There are multiple benign calcified granulomata of the spleen. Normal pancreas. Normal bilateral adrenal glands. No obstructive uropathy, or suspicious solid renal lesion, there is a stable simple 2.5 cm left renal cyst. Normal visualized stomach. Normal small intestine. Scattered colonic diverticula with retained stool in the majority of the colon. In the distal sigmoid colon, there is thickening and pericolonic inflammatory stranding is seen on axial images 116 through 127 consistent with acute diverticulitis. No perforation or abscess noted. The appendix is not visualized. Normal abdominal aorta. Normal inferior vena cava. Normal retroperitoneum. Normal urinary bladder. Normal abdominal wall. There are diffuse degenerative changes of the visualized lumbar spine, and pelvis. CT/Abdomen/Pelvis without Cont IMPRESSION: Acute sigmoid diverticulitis in the distal sigmoid colon with a minimal amount of pericolonic inflammatory stranding. No perforation or abscess No suspicious solid or abnormality, specifically, no obstructive uropathy. Stable simple left renal cyst. No specific follow-up needed No free intraperitoneal fluid, air, or suspicious adenopathy Electronically Signed: Frankie Higginbotham MD at 8:41 EDT , CC: Dr. Ramón Ha DO; Dr. Corie Cadet DO Structural Rigger: Signed Corie Cadet DO Work Phone: Start: 03-18-2023 End: 03-18-2023 Procedure Note: See Note; NOTES: [facility] Medical Records Department [address] [place] [address] Emergency Department Summary 03/18/23 MR#: [id number] Acct: [id number] Name: SARAH CHÁVEZ Rep #: [id number] : 1955 67 From: Ramón Ha DO PCP: Dr. Corie Cadet DO Status:DEP ER Location: ED HPI HPI - Female History of Present Illness Chief Complaint: Complaint Narrative Narrative: 67-year-old female presenting with dysuria and urinary frequency. She states this is been ongoing for a few days. She is also noted that she has sharp intermittent left-sided pelvic pain. She describes this as sharp. When it comes it is severe as an 8/10. She gets nauseous and has trouble finding a position of comfort when this happens. No fevers. She does have some associated nausea. No diarrhea or constipation. No vaginal complaints. [facility] Medical History Anemia Arthritis GERD (gastroesophageal reflux disease) history of spur removal Irregular heart beat Home Medications epinephrine 0.3 mg/0.3 mL injection, auto-injector 0.3 mg (0.3 mL) IM X1 ##1 04/04/20 [Rx Last Taken Unknown] pantoprazole 40 mg tablet,delayed release 40 mg PO BID 04/04/20 [History Last Taken Unknown] epinephrine 0.3 mg/0.3 mL injection, auto-injector 0.3 mg (0.3 mL) IM X1 PRN Anaphylaxis ##1 04/05/20 [Rx Last Taken Unknown] celecoxib 200 mg capsule 200 mg PO DAILY 07/06/21 [History Last Taken Unknown] ciprofloxacin HCl 500 mg tablet (Cipro) 500 mg PO BID #20 tabs 03/18/23 [Rx Last Taken Unknown] hydrocodone-acetaminop hen 5-325mg 5mg-325mg 1 tab PO Q6H PRN PRN Pain 3 days #10 TABLETS 03/18/23 [Rx Last Taken Unknown] metronidazole 500 mg tablet 500 mg PO TID #30 tabs 03/18/23 [Rx Last Taken Unknown] ondansetron 4 mg disintegrating tablet 4 mg PO Q8H PRN PRN Nausea #14 tabs 03/18/23 [Rx Last Taken Unknown] phenazopyridine 200 mg tablet (Pyridium) 200 mg PO TID 6 doses #6 tabs 03/18/23 [Rx Last Taken Unknown] Allergy/AdvReac Type Severity Reaction Status Date / Time bee venom protein (honey bee) Allergy Anaphylaxis Verified 03/18/23 07:33 gabapentin Allergy DIZZY AND Verified 03/18/23 07:33 LIGHTHEADED Surgical History History of appendectomy History of hysterectomy Social History Smoking Status: Former smoker alcohol intake: never ROS ROS ED Constitutional Constitutional ED: Denies chills or fever(s) Eyes Eyes: Denies change in vision or diplopia ENT ENT ED: Denies rhinorrhea or sore throat Cardiovascular Cardiovascular: Denies chest pain or palpitations Respiratory/Chest Respiratory/Chest: Denies cough or dyspnea Gastrointestinal Gastrointestinal: Reports abdominal pain and nausea Genitourinary Genitourinary ED: Reports dysuria and urinary frequency Musculoskeletal Musculoskeletal: Denies arthralgias Integumentary Denies abscess Neurologic Neurologic: Denies headache(s) or paresthesias Psychiatric Psychiatric: Denies anxiety or depression EXAM Physical Exam Const Vital Signs: 03/18/23 07:17 03/18/23 09:13 Temperature 97.5 F L Temperature Source Temporal Pulse Rate 86 76 Respiratory Rate 15 18 Blood Pressure 132/69 H 111/61 Blood Pressure Mean 90 Pulse Ox 100 99 Oxygen Delivery Method Room Air Positive well nourished General Appearance ED: NAD Eyes PERRL and EOMs intact bilaterally Resp normal respiratory effort Cardio regular rate and regular rhythm GI Palpation: tender LLQ Back/Spine General Back: CVA tenderness left Neuro oriented x3 and CN's II-XII intact bilaterally Sensorium / Orientation: alert Psych mental status grossly normal MDM MDM MDM Narrative Medical decision making narrative: Patient presenting with left lower quadrant pain, dysuria, hematuria. Differential includes UTI, pyelonephritis, ovarian cyst, ovarian torsion, ureteral calculi, renal calculi, diverticulitis, colitis. I have a strong suspicion with her urinary symptoms and sharp pain that she has a kidney stone however. She treat with Toradol. CBC to assess white blood cell count, hemoglobin, platelets. BMP to assess renal function, electrolytes. Urinalysis to assess for UTI or occult blood. CT of the abdomen pelvis without contrast to rule out kidney stone. CBC shows a slight leukocytosis at 12.1. Hemoglobin stable at 12.5. Renal function electrolytes within normal limits. Urinalysis shows 250 occult blood, negative nitrites, 500 leukocyte esterase, 100 white blood cells with no contamination and 1+ bacteria. CT of the abdomen pelvis without contrast was obtained to rule out kidney stone and there is no evidence of kidney stone but there is acute diverticulitis. This is uncomplicated. Given that she has a UTI in addition to diverticulitis she will be started on Cipro and Flagyl. Urine culture was sent. She was given Equality for pain and Zofran for nausea. She also requested Pyridium for dysuria. Return precautions were discussed. Impression: 1. Acute uncomplicated sigmoid diverticulitis 2. UTI Lab Data Attestation: I reviewed the patient's lab results. Labs: Laboratory Results - last 24 hr 03/18/23 03/18/23 03/18/23 07:25 07:40 07:40 WBC 12.1 H RBC 3.89 L Hgb 12.5 Hct 37.6 MCV 96.7 MCH 32.1 H MCHC 33.2 RDW Std Deviation 47.9 H RDW Coeff of Osei 13.3 Plt Count 271 MPV 9.9 Immature Gran % (Auto) 0.700 Neut % (Auto) 76.0 H Lymph % (Auto) 14.1 L [place] % (Auto) 7.6 Eos % (Auto) 1.3 Baso % (Auto) 0.3 Absolute Neuts (auto) 9.2 H Absolute Lymphs (auto) 1.71 Nucleated RBC % 0 Sodium 141 Potassium 3.6 Chloride 108 H Carbon Dioxide 27.0 Anion Gap 6 BUN 9 Creatinine 0.53 L Estim Creat Clear Calc 43.18 Est GFR (MDRD) Af Amer 147 Est GFR (MDRD) Non-Af 121 BUN/Creatinine Ratio 16.9 Glucose 112 H Calcium 8.7 Urine Color Yellow Urine Clarity Cloudy Urine pH 6.0 Ur Specific [place] 1.015 Urine Protein 30 H Urine Glucose (UA) Normal Urine Ketones Negative Urine Occult Blood 250 H Urine Nitrite Negative Urine Bilirubin Negative Urine Urobilinogen Normal Ur Leukocyte Esterase 500 H Urine RBC 5-10 SEEN Urine WBC >100 SEEN Ur Squamous Epith Cells 0 SEEN Urine Bacteria 1+ Urine Mucus 0 SEEN Radiography Diagnostic Testing: Clinical Impression(s) from Imaging Studies Abdomen/Pelvis CT 03/18/23 07:35 IMPRESSION: Acute sigmoid diverticulitis in the distal sigmoid colon with a minimal amount of pericolonic inflammatory stranding. No perforation or abscess No suspicious solid or abnormality, specifically, no obstructive uropathy. Stable simple left renal cyst. No specific follow-up needed No free intraperitoneal fluid, air, or suspicious adenopathy Electronically Signed: Frankie Higginbotham MD at 8:41 EDT Reading Location ID and State: [address] [place] [address] , Service support , Discharge Plan Triage Chief Complaint: Complaint ED Provider: Ramón Ha Dx/Rx/DC Orders Instructions: ED Diverticulitis, ED Cystitis Female Adult Prescriptions: New ciprofloxacin HCl [Cipro] 500 mg tablet 500 mg PO BID Qty: 20 0RF metronidazole 500 mg tablet 500 mg PO TID Qty: 30 0RF ondansetron 4 mg tablet,disintegrating 4 mg PO Q8H PRN PRN (Reason: Nausea) Qty: 14 0RF hydrocodone-acetaminop hen 5-325 mg tablet 1 tab PO Q6H PRN PRN (Reason: Pain) 3 Days Qty: 10 0RF phenazopyridine [Pyridium] 200 mg tablet 200 mg PO TID Qty: 6 0RF No Action pantoprazole 40 MG tablet 40 mg PO BID epinephrine 0.3 MG syringe 0.3 mg IM X1 Qty: 1 0RF epinephrine 0.3 MG syringe 0.3 mg IM X1 PRN (Reason: Anaphylaxis) Qty: 1 0RF celecoxib 200 mg capsule 200 mg PO DAILY Primary Care Provider: Corie Cadet Referrals: Corie Cadet DO [Primary Care Provider] - Disposition Disposition: Home, Self Care Discharge Date/Time: 03/18/23 09:14 What to do if you have Problems For any increased pain, shortness of breath, bleeding, nausea or vomiting, chest pain, or any unexpected problems, contact your Primary Care Provider. Call [facility] ([phone]) or report to the closest Emergency Room. Call 911 if necessary. 03/18/23 1523 <Electronically signed by Ramón Ha DO> Cosigner Signature (if applicable): CC: Dr. Corie Cadet DO Signed Corie Cadet DO Work Phone: Start: 12-15-2022 BRANDON SCREENING W [place] Charles APRN.DIRECTOR OF TESTING Work Phone: Start: 12-15-2022 Mammography Mammography Coordinator Start: 07-31-2022 End: 08-01-2022 Procedure Note: See Note; NOTES: [facility] Cardiovascular Services [address] [place] [address] 12 Lead EKG 07/31/22 0951 MR#: [id number] Acct: [id number] Name: SARAH CHÁVEZ Rep #: [id number] : 1955 66 From: David Daily MD Attending Dr: Hever Clemente PA-C Status: REG CL I Ordering Dr: Hever Clemente PA-C Date: 07/31/22 Location: N Sex: F C Admitted: Test Reason : PRE OP Blood Pressure : / mmHG Vent. Rate : 074 BPM Atrial Rate : 074 BPM P-R Int : 126 ms QRS Dur : 092 ms QT Int : 382 ms P-R-T Axes : 049 007 023 degrees QTc Int : 424 ms Normal sinus rhythm Normal ECG Confirmed by DAVID DAILY MD ([id number]), publishing editor IRAIDA TURK ([id number]) on 08/01/2022 8:50:29 AM Referred By: Hever Clemente Confirmed By:DAVID DAILY MD 08/01/22 0850 Date David Daily MD CC: KAYLA Clemente; Dr. Corie Cadet DO Signed Corie Cadet DO Work Phone: Start: 06-19-2022 End: 06-19-2022 Procedure Note: See Note; NOTES: [facility] Cardiovascular Services [address] [place] [id number] MR#: [id number] Acct: [id number] Name: SARAH CHÁVEZ Rep #: [id number] : 1955 66 From: David Daily MD Primary Care: Dr. Corie Cadet DO Status: REG CLI Referring Dr: Corie Cadet DO Sex: F C Stress Test Report Exercise myocardial perfusion stress test. 66-year-old lady with a history of chest pain. Stress protocol: Resting EKG demonstrates normal sinus rhythm with a rate of 61 bpm normal intervals are noted resting blood pressure is 120/72 mmHg. The patient exercised according to the regular Omar protocol for total duration of 9 minutes completing stage III of the Omar protocol the maximum heart rate attained 150 bpm which was 97% of max impacted heart rate the maximum workload was 10.1 metabolic equivalents. At rest there were no ST or T wave changes noted suggest ischemia and at peak exercise there were no ST or T wave changes noted to suggest ischemia. No clinical angina was noted the test was terminated due to completion of the protocol. Myocardial perfusion protocol. 11.4 mCi of technetium 99m sestamibi was injected at rest. The patient exercised according to regular Omar protocol for total duration of 9 minutes and at peak exercise 31.8 mCi of technetium 99m sestamibi was injected stress images were obtained stress and rest images were reconstructed and compared in the short axis vertical long and horizontal long axis. Gated images were also obtained to Perfusion SPECT analysis: Review of the stress images demonstrate normal uptake of tracer noted in all areas of the myocardium. The resting images similar demonstrate normal uptake of tracer noted in all areas of the myocardium. No reversibility is noted to suggest ischemia and no previous infarct is noted. Gated SPECT analysis: The gated ejection fraction is 67%. Conclusion: Normal exercise myocardial perfusion stress test at a high workload. No clinical angina noted. Preserved ejection fraction. 06/19/221115 <Electronically signed by David Daily MD> Date David Daily MD CC: Dr. Corie Cadet DO Date Dictated: 06/19/221112 Date Transcribed: 06/19/221112 Structural Rigger: [place] Signed Corie Cadet DO Work Phone: Start: 06-19-2022 End: 06-19-2022 Procedure Note: See Note; NOTES: [facility] Cardiovascular Services [address] [place] [address] Echo Complete 06/19/22811 MR#: [id number] Acct: [id number] Name: SARAH CHÁVEZ Rep #: [id number] : 1955 66 From: David Daily MD Attending Dr: Dr. Corie Cadet DO Status: R EG CLI Ordering Dr: Corie Cadet DO Date: 06/19/22 Location: [facility] Sex: F C Admitted: Reason For Study: Chest Tightness Procedure This was a 2D Doppler, Color Flow transthoracic echocardiogram. Exam performed in department. Left Ventricle Normal LV size. Left ventricular systolic function is normal. The estimated ejection fraction is 55 %. No regional wall motion abnormalities noted. Right Ventricle Normal RV size. Normal systolic function. Atria Normal left atrium. Normal right atrium. Mitral Valve Normal mitral valve. Tricuspid Valve Normal tricuspid valve. Mild tricuspid valve insufficiency. Pulmonary artery systolic pressure is 30 mmHg. Aortic Valve Normal aortic valve. Trisinus/trileaflet aortic valve. Pulmonic Valve Normal pulmonic valve. Great Vessels Normal aortic root. The pulmonary artery is normal size. Normal inferior vena cava. Pericardium/Pleural No pericardial effusion. MMode/2D Measurements Calculations LVIDd: 5.2 cm IVSd: 0.87 cm Ao root diam: 3.1 cm LVIDs: 3.6 cm LVPWd: 0.77 cm LA dimension: 3.3 cm RVDd: 3.2 cm FS: 30.7 % LAV(MOD-bp): 28.3 ml LA A4 area: 13.9 cm2 RA A4 area: 13.8 cm2 LAV(MOD-bp) Indexed: 18.5 ml/m2 LAV(MOD-sp2): 22.7 ml LAV(MOD-sp4): 35.7 ml Time Measurements MV dec time: 0.20 sec Doppler Measurements Calculations MV E max melba: 53.9 cm/sec Lat Peak E' Melba: 9.7 cm/sec Med Peak E' Melba: 8.3 cm/sec MV A max melba: 87.7 cm/sec E/E' lat: 5.6 E/E' med: 6.5 MV E/A: 0.61 MV V2 max: 104.1 cm/sec MV P1/2t max melba: 74.5 cm/sec Ao V2 max: 135.1 cm/sec MV max P.3 mmHg MV P1/2t: 72.6 msec Ao max P.3 mmHg MV V2 mean: 45.7 cm/sec MV dec slope: 300.6 cm/sec2 Ao V2 mean: 88.5 cm/sec MV mean P.0 mmHg MVA(P1/2t): 3.0 cm2 Ao mean P.7 mmHg MV V2 VTI: 21.6 cm Ao V2 VTI: 27.8 cm LV V1 max: 95.6 cm/sec PA V2 max: 94.8 cm/sec TR max melba: 226.6 cm/sec LV V1 max P.7 mmHg TR max P.7 mmHg LV V1 mean P.0 mmHg LV V1 mean: 66.5 cm/sec LV V1 VTI: 21.8 cm ECHO/Echo Complete Interpretation Summary Normal LV size. Left ventricular systolic function is normal. The estimated ejection fraction is 55 %. Structurally normal valves. Ordering Physician: Corie Cadet Referring Physician: Corie Cadet Performed By: Juan Grace RCS 06/19/22927 Date David Daily MD CC: Dr. Corie Cadet DO Date Dictated: 06/19/22811 Date Transcribed: 06/19/22927 Structural Rigger: Signed Corie Cadet DO Work Phone: Start: 06-19-2022 Radionuclide imaging of perfusion of myocardium under exercise stress Dr. Corie Cadet Work Phone: Start: 05-08-[address] Corie Cadet Work Phone: Start: 05-08-2022 End: 05-09-2022 Procedure Note: See Note; NOTES: [facility] Imaging Services [address] [place] [address] Abdomen Limited MR#: [id number] Acct: [id number] Name: SARAH CHÁVEZ Rep #: [id number] : 1955 F 66 From: Chemo Gray MD PCP: Dr. Corie Cadet, DO Status: REG CLI Study: Abdomen Limited Date of Exam: 05/08/22 Exam# [id number] Ordering Dr: RODRIGUEZ MCLEOD STUDY: ABDOMINAL ULTRASOUND - RIGHT UPPER QUADRANT REASON FOR VISIT: Female, 66 years old EPIGASTRIC PAIN TECHNIQUE: Ultrasound evaluation of the right upper quadrant was performed with real-time and static garcia-scale imaging. TECHNICAL QUALITY: Adequate. COMPARISON: None. FINDINGS: Liver: The liver measures 16.0 cm. There is increased echogenicity consistent with fatty infiltration. The bile ducts are within normal limits. There is hepatic color flow. The direction of portal flow is hepatopetal. There is no demonstrated mass lesion. Gallbladder: The patient is status post cholecystectomy. s. Common Bile Duct (C.B.D.): The common bile duct measures 12 mm. Pancreas: Normal size of the head, body and tail of the pancreas. There is normal echogenicity of the pancreas. There is no demonstrated pancreatic mass or cyst. Right Kidney: Normal size of the right kidney. The right kidney measures 10.4 cm. Normal renal cortex. The right cortex measures 2.0 cm. There is no demonstrated renal mass or cyst. There is no right hydronephrosis. US/Abdomen Limited IMPRESSION: Status post cholecystectomy with fatty infiltration of the liver. Electronically Signed: Chemo Gray MD at 9:04 EDT , CC: RODRIGUEZ MCLEOD; Dr. Corie Cadet DO Structural Rigger: Signed Corie Cadet DO Work Phone: Start: 10-14-2021 End: 10-15-2021 Comments: See Note; NOTES: [facility] Imaging Services [address] [address] Abdomen WITH ORAL Cont Only MR#: [id number] Acct: [id number] Name: SARAH CHÁVEZ Rep #: [id number] : 1955 F 65 From: Darell Barba MD PCP: Dr. Corie Cadet DO Status: REG CLI Study: Abdomen WITH ORAL Cont Only Date of Exam: 09/25 10/15 Exam# [id number] Ordering Dr: Corie Cadet DO EXAM: CT ABDOMEN WITHOUT INTRAVENOUS CONTRAST CLINICAL INDICATION: RUQ PAIN TECHNIQUE: Helically acquired images were obtained of the abdomen without intravenous contrast. CTDIvol = ( 8.60 ) mGy, DLP = ( 272.86 ) mGycm This CT exam was performed using one or more of the following dose reduction techniques: automated exposure control, adjustment of the mA and/or kV according to patient size, and/or use of iterative reconstruction technique. This report was created using [employer]Sw[employer] report generation technology. CONTRAST: Oral Readi-CAT COMPARISON: CT abdomen pelvis 03/20/2014 FINDINGS: LOWER THORAX: Unremarkable. Lung bases are clear. No cardiomegaly. No significant pericardial effusion. LIVER: Unremarkable. Homogeneous. GALLBLADDER AND BILE DUCTS: Absent gallbladder. No intra- or extrahepatic biliary ductal dilation. PANCREAS: Unremarkable. No focal cystic mass. SPLEEN: Calcified granulomas of the spleen which is not enlarged. ADRENALS: Unremarkable. No nodules. KIDNEYS AND URETERS: Exophytic cyst laterally involving left kidney measuring up to 2.3 cm. Normal renal size and position. No hydronephrosis. STOMACH AND BOWEL: Unremarkable. No stomach or bowel distention. No focal inflammatory change. INTRAPERITONEAL SPACE: No free air or free fluid. BONES/JOINTS: Unremarkable. No suspicious lytic or blastic abnormality. SOFT TISSUES: Unremarkable. No discrete abdominal wall hernia. VASCULATURE: Unremarkable. Abdominal aorta is non-dilated. LYMPH NODES: No enlarged lymph nodes. OTHER FINDINGS: No inflammatory or obstructive changes about. CT/Abdomen WITH ORAL Cont Only IMPRESSION: No acute or inflammatory disease or bowel obstruction. Old granulomatous disease. Calcified granulomas of the spine. Electronically Signed: Darell Barba MD at 0:30 EST Tel , Service support , CC: Dr. Corie Cadet DO Structural Rigger: Signed Corie Cadet DO Work Phone: Start: 09-15-2021 End: 10-11-2021 Comments: See Note; NOTES: [facility] Imaging Services [address] [place] [address] Spine Cervical (Routine) MR#: [id number] Acct: [id number] Name: SARAH CHÁVEZ Rep #: [id number] : 1955 F 65 From: Kenney Atkins MD PCP: Dr. Corie Cadet, Status: REG CLI Study: Spine Cervical (Routine) Date of Exam: Exam# [id number] Ordering Dr: Casandra Mohr NP CORE MAKER HELPER-C STUDY: MRI CERVICAL SPINE WITHOUT CONTRAST REASON FOR EXAM: Female, 65 years old. CERVICAL SPINAL STENOSIS TECHNIQUE: Standardized fat and water weighted pulse sequences were obtained in the sagittal and axial planes. COMPARISON: None FINDINGS: Normal foramen magnum and brainstem-cervical cord junction. Normal cervical lordosis. C2-3: There is minimal disc space narrowing and endplate spondylosis. There is no significant central canal or foraminal stenosis C3-4: There is minimal disc space narrowing and endplate spondylosis. There is no significant central canal or foraminal stenosis C4-5: There is minimal disc space narrowing and endplate spondylosis. There is no significant central canal or foraminal stenosis C5-6: There is minimal disc space narrowing and endplate spondylosis. There is no significant central canal or foraminal stenosis C6-7: There is minimal disc space narrowing and endplate spondylosis. There is no significant central canal or foraminal stenosis C7-T1: There is minimal disc space narrowing and endplate spondylosis. There is no significant central canal or foraminal stenosis Normal cervical cord. MRI/Spine Cervical (Routine) IMPRESSION: Mild degenerative changes without significant central canal or foraminal stenosis. Electronically Signed: Kenney Atkins MD at 15:58 EST Tel , Service support , CC: LAUREANO Mohr; Dr. Corie Cadet DO Structural Rigger: Signed Corie Cadet DO Work Phone: Start: 09-08-2021 Mammography [place] Charles APRN.DIRECTOR OF TESTING Work Phone: Start: 07-18-2021 End: 07-18-2021 Comments: See Note; NOTES: [facility] Radiology [address] [place] [address] Chest PA and Lateral MR#: [id number] Acct: [id number] Name: SARAH CHÁVEZ Rep #: [id number] : 1955 F 65 From: Jefferson case MD PCP: Dr. Corie Cadet DO Status: DEP AMB Study: Chest PA and Lateral Date of Exam: 07/18/21 Exam# [id number] Ordering Dr: Corie Cadet DO STUDY: X-RAY CHEST REASON FOR EXAM: Female, 65 years old. SOB -- STAT TECHNIQUE: PA and lateral views of the chest. COMPARISON: None. FINDINGS: Hyperinflation. Calcified granuloma in the right upper lobe. There is no demonstrated pleural abnormality. Normal size heart. Calcified right hilar lymph nodes. Normal visualized pulmonary arteries. There is atherosclerotic calcification of the aortic arch with tortuosity. There is demineralization of the osseous structures. Normal visualized ribs, clavicles, and shoulders. There is no demonstrated abnormality of the visualized soft tissue structures of the upper abdomen. RAD/Chest PA and Lateral IMPRESSION: Hyperinflation. No acute abnormality is seen. Electronically Signed: Jefferson Tuttle MD at 9:17 EDT , Service support , CC: Dr. Corie Cadet DO Structural Rigger: Signed Corie Cadet DO Work Phone: Start: 07-12-2021 End: 07-20-2021 Comments: See Note; NOTES: [facility] Cardiovascular Services [address] [place] [address] MR#: [id number] Acct: [id number] Name: SARAH CHÁVEZ Rep #: [id number] : 1955 65 From: David Daily MD Primary Care: Dr. Corie Cadet DO Status: REG CLI Referring Dr: Corie Cadet DO Sex: F C Stress Test Report Exercise myocardial perfusion stress test. 65-year-old lady with a history of ventricular bigeminy. Stress protocol: Resting EKG demonstrated sinus rhythm with a rate of 65 bpm normal intervals are noted resting blood pressure is 122/78 mmHg. The patient exercised according to regular Omar protocol for total duration of 7 minutes completing 1 minute into stage III of the Omar protocol the maximum heart rate attained was 173 bpm which was 111% maximum corrected heart rate the maximum workload was 10.1 metabolic equivalents. At rest there were no ST or T wave changes noted to suggest ischemia and at peak exercise nonspecific ST changes were noted with did not meet the criteria for ischemia. The peak rate pressure product was 21,880. Myocardial perfusion protocol. 11.0 mCi of technetium 99m sestamibi was injected at rest. The patient exercised according to regular Omar protocol for total duration of 7 minutes and at peak exercise 33.6 mCi of technetium 99m sestamibi was injected stress images were obtained stress and rest images were reconstructed and compared in the short axis vertical long horizontal long axis. Gated images were also obtained for Perfusion SPECT analysis: Review of the stress images demonstrate normal uptake of tracer noted in all areas of the myocardium. The resting images similarly demonstrate normal uptake of tracer noted in all areas of the myocardium. No areas of reversibility are noted suggest ischemia and no previous infarct is noted. Gated SPECT analysis: The gated ejection fraction is 72%. Conclusion: Normal exercise myocardial perfusion stress test at a high workload. Preserved ejection fraction. 07/12/211733 <Electronically signed by David Daily MD> Date David Daily MD CC: Dr. Corie Cadet DO Date Dictated: 07/12/211730 Date Transcribed: 07/12/211730 Structural Rigger: [place] Signed Corie Cadet DO Work Phone: Start: 07-06-2021 End: 07-20-2021 Comments: See Note; NOTES: [facility] Medical Records Department [address] [place] [address] Emergency Department Summary 07/06/21 MR#: [id number] Acct: [id number] Name: SARAH CHÁVEZ Rep #: [id number] : 1955 65 From: Darell Davidson DO PCP: Dr. Corie Cadet DO Status:REG ER Location: ED HPI History of Present Illness Chief Complaint: Palpitations Narrative Narrative: Patient is a 65-year-old female who states that she felt palpitations that woke her from sleep this evening. She states she is dealt with these over the past 4 to 5 months and recently had a Holter monitor study. She denies any new medications any excessive stimulant use or illicit drug use. She states that based on the return of the palpitations she was concerned and comes to the hospital for evaluation. She does state by the time she arrived to the hospital her symptoms have spontaneously resolved. She reports she cannot get in to see a asset accountant until September. [facility] Medical History Anemia Arthritis GERD (gastroesophageal reflux disease) history of spur removal Irregular heart beat Home Medications epinephrine 0.3 mg IM X1 #1 syringe 04/04/20 [Rx Last Taken Unknown] pantoprazole 40 mg PO BID 04/04/20 [History Last Taken Unknown] epinephrine 0.3 mg IM X1 PRN #1 syringe 04/05/20 [Rx Last Taken Unknown] celecoxib 200 mg PO DAILY 07/06/21 [History Last Taken Unknown] Allergy/AdvReac Type Severity Reaction Status Date / Time bee venom protein (honey bee) Allergy Anaphylaxis Verified 07/06/21 02:22 gabapentin Allergy DIZZY AND Verified 07/06/21 02:22 LIGHTHEADED Surgical History History of appendectomy History of hysterectomy Social History (Updated 12/12/18 @ 14:52 by Tremayne GARNER, PA) Smoking Status: Former smoker alcohol intake: never ROS ROS ED Constitutional Constitutional ED: Denies chills or fever(s) ENT ENT ED: Denies sore throat Cardiovascular Cardiovascular: Reports palpitations and racing heartbeat; Denies chest pain Respiratory/Chest Respiratory/Chest: Denies cough or dyspnea Gastrointestinal Gastrointestinal: Denies abdominal pain, diarrhea, nausea or vomiting Genitourinary Genitourinary ED: Denies dysuria Musculoskeletal Musculoskeletal: Denies myalgias Integumentary Denies rash Neurologic Neurologic: Denies headache(s) Hematologic/Lymphatic Hematologic/Lymphatic: Denies easy bleeding or easy bruising EXAM Physical Exam Const Vital Signs: 07/06/21 02:19 07/06/21 02:24 Temperature 98.1 F Temperature Source Temporal Pulse Rate 74 Respiratory Rate 18 Respiratory Effort Normal Non-Labored Blood Pressure 143/82 H Blood Pressure Mean 102 Pulse Ox 97 99 Oxygen Delivery Method Room Air Room Air Positive well nourished and well developed General Appearance ED: well developed HEENT Reports moist mucous membranes Eyes PERRL and EOMs intact bilaterally Neck supple Resp normal respiratory effort and clear to auscultation bilaterally Cardio regular rate and regular rhythm Rate: other Other Details: Radial pulses are +2/4 by letter there equal and symmetric GI normal to inspection, nondistended, normoactive bowel sounds, non-tender and non-distended GI Narrative: No voluntary guarding or rigidity no pulsatile mass Auscultation: normoactive bowel sounds Palpation: soft Extremity normal to inspection Extremity Narrative: No asymmetric edema no pitting edema negative home and sign bilaterally Neuro oriented x3 and CN's II-XII intact bilaterally Sensorium / Orientation: alert Motor Exam: strength 5/5 throughout Psych mental status grossly normal Skin no rashes or lesions noted MDM MDM MDM Narrative Medical decision making narrative: Patient presented to the ER with stable vitals and spontaneous resolution of her symptoms. With her report of palpitations a basic cardiac workup was obtained. Her lab work revealed no clinically significant findings and there is no signs of heart damage as her troponin was normal. The patient was kept on the heart monitor and remained in sinus rhythm for her ER stay. Therefore this time with a negative workup and patient maintaining normal sinus rhythm without any obvious dysrhythmia or ectopy noted there is no need for further evaluation and she is safe for discharge. Lab Data Attestation: I reviewed the patient's lab results. Labs: Laboratory Results - last 24 hr 07/06/21 07/06/21 02:20 02:20 WBC 8.0 RBC 4.12 L Hgb 12.7 Hct 38.3 MCV 93.0 MCH 30.8 MCHC 33.2 RDW Std Deviation 43.9 RDW Coeff of Osei 12.8 Plt Count 288 MPV 10.2 Immature Gran % (Auto) 0.400 Neut % (Auto) 48.7 Lymph % (Auto) 39.1 [place] % (Auto) 8.4 Eos % (Auto) 2.9 Baso % (Auto) 0.5 Absolute Neuts (auto) 3.9 Absolute Lymphs (auto) 3.11 Nucleated RBC % 0 Sodium 139 Potassium 3.9 Chloride 102 Carbon Dioxide 32.0 Anion Gap 5 BUN 14 Creatinine 0.65 Estim Creat Clear Calc 68.25 Est GFR (MDRD) Af Amer 118 Est GFR (MDRD) Non-Af 97 BUN/Creatinine Ratio 21.6 H Glucose 112 H Calcium 9.1 Magnesium 2.4 Troponin I High Sens 6 TSH 3.89 H Discharge Plan Triage Chief Complaint: Palpitations ED Provider: Darell Davidson Dx/Rx/DC Orders Clinical Impression: Heart palpitations Instructions: ED About Arrhythmias, ED Palpitations Prescriptions: No Action pantoprazole 40 MG tablet 40 mg PO BID RF: 0 epinephrine 0.3 MG syringe 0.3 mg IM X1 Qty: 1 RF: 0 epinephrine 0.3 MG syringe 0.3 mg IM X1 PRN (Reason: Anaphylaxis) Qty: 1 RF: 0 celecoxib 200 mg capsule 200 mg PO DAILY RF: 0 Primary Care Provider: Corie Cadet Referrals: Corie Cadet DO [Primary Care Provider] - Disposition Disposition: Home, Self Care What to do if you have Problems For any increased pain, shortness of breath, bleeding, nausea or vomiting, chest pain, or any unexpected problems, contact your Primary Care Provider. Call [facility] ([phone]) or report to the closest Emergency Room. Call 911 if necessary. 07/06/21 0336 <Electronically signed by Darell Davdison DO> Cosigner Signature (if applicable): CC: Dr. Corie Cadet DO Signed Corie Cadet DO Work Phone: Start: 07-06-2021 End: 07-15-2021 Comments: See Note; NOTES: [facility] Cardiovascular Services [address] [place] [address] 12556 12 Lead EKG 07/06/21220 MR#: [id number] Acct: [id number] Name: SARAH CHÁVEZ Rep #: [id number] : 1955 65 From: David Daily MD Attending Dr: Status: DEP ER Ordering Dr: Darell Davidson DO Date: 07/06/21 Location: ED Sex: F C Admitted: Test Reason : CP Blood Pressure : / mmHG Vent. Rate : 072 BPM Atrial Rate : 072 BPM P-R Int : 128 ms QRS Dur : 092 ms QT Int : 392 ms P-R-T Axes : 038 001 039 degrees QTc Int : 429 ms Normal sinus rhythm Normal ECG Confirmed by DAVID DAILY MD ([id number]), publishing editor IRAIDA TURK ([id number]) on 07/12/2021 6:28:30 AM Referred By: MELISSA Confirmed By:DAVID DAILY MD 07/12/21 0628 Date David Daily MD CC: Dr. Corie Cadet DO; Darell Davidson DO Signed Corie Cadet DO Work Phone: Start: 06-23-2021 End: 06-23-2021 Comments: See Note; NOTES: [facility] Cardiovascular Services [address] [place] [address] Echo Complete 06/23/21 1007 MR#: [id number] Acct: [id number] Name: SARAH CHÁVEZ Rep #: [id number] : 1955 65 From: David Daily MD Attending Dr: Dr. Corie Cadet DO Status: R [facility] Ordering Dr: Corie Cadet DO Date: 06/23/21 Location: [facility] Sex: F C Admitted: Reason For Study: RBBB Procedure This was a 2D Doppler, Color Flow transthoracic echocardiogram. Exam performed in department. Left Ventricle Normal left ventricle. Left ventricular systolic function is normal. The estimated ejection fraction is 60 %. No regional wall motion abnormalities noted. Right Ventricle Normal RV size. Normal systolic function. Atria Normal left atrium. Normal right atrium. Mitral Valve Normal mitral valve. Trivial eccentric mitral valve insufficiency. Tricuspid Valve Normal tricuspid valve. Mild tricuspid valve insufficiency. Aortic Valve Trisinus/trileaflet aortic valve. Pulmonic Valve Normal pulmonic valve. Great Vessels Normal aortic root. The pulmonary artery is normal size. Normal inferior vena cava. Pericardium/Pleural No pericardial effusion. MMode/2D Measurements Calculations LVIDd: 4.7 cm IVSd: 0.97 cm Ao root diam: 2.7 cm LVIDs: 2.9 cm LVPWd: 1.0 cm RVDd: 2.3 cm FS: 38.1 % LAV(MOD-bp): 27.4 ml LA A4 area: 11.4 cm2 LA dimension(2D): 2.9 cm LAV(MOD-bp) Indexed: 18.1 ml/m2 LAV(MOD-sp2): 26.8 ml LAV(MOD-sp4): 26.8 ml RA A4 area: 9.3 cm2 Time Measurements MV dec time: 0.19 sec Doppler Measurements Calculations MV E max melba: 49.0 cm/sec Lat Peak E' Melba: 7.4 cm/sec Med Peak E' Melba: 6.3 cm/sec MV A max melba: 69.5 cm/sec E/E' lat: 6.6 E/E' med: 7.8 MV E/A: 0.71 Ao V2 max: 109.4 cm/sec LV V1 max: 91.8 cm/sec PA V2 max: 92.4 cm/sec Ao max P.8 mmHg LV V1 max P.4 mmHg TR max melba: 203.6 cm/sec TR max P.6 mmHg ECHO/Echo Complete Interpretation Summary Normal left ventricle. Left ventricular systolic function is normal. The estimated ejection fraction is 60 %. Mild tricuspid valve insufficiency. _ Ordering Physician: Corie Cadet Referring Physician: Corie Cadet Performed By: Ashleigh Kim, ANNY, RVT 06/23/21 1608 Date David Daily MD CC: Dr. Corie Cadet, DO Date Dictated: 06/23/21 1007 Date Transcribed: 06/23/21 1608 Structural Rigger: David Cadet DO Work Phone: Start: 05-17-2021 End: 05-18-2021 Comments: See Note; NOTES: [facility] Imaging Services [address] [place] [address] Cerv Spine Obl/Flex/Ext Comp MR#: [id number] Acct: [id number] Name: SARAH CHÁVEZ Rep #: [id number] : 1955 F 65 From: Jefferson case MD PCP: Dr. Corie Cadet, DO Status: REG CLI Study: Cerv Spine Obl/Flex/Ext Comp Date of Exam: Exam# [id number] Ordering Dr: Yash Ortiz MD STUDY: X-RAY - CERVICAL SPINE REASON FOR EXAM: Female, 65 years old. Other cervical disc degeneration, unspecified cervical region TECHNIQUE: 6 view(s) of the cervical spine were obtained. COMPARISON: Comparison is made with prior study dated 06/18/2015. FINDINGS: Normal anterior atlantoaxial articulation. Normal odontoid process. Normal cervical lordosis. Normal vertebral bodies and endplates. Mild degree of disc space narrowing at the C5-C6 level. Normal visualized intervertebral neuroforamina. The soft tissue structures are unremarkable. RAD/Cerv Spine Obl/Flex/Ext Comp IMPRESSION: Mild degree of disc space narrowing at the C5-C6 level. Electronically Signed: Jefferson Tuttle MD at 11:14 EDT , Service support , CC: Dr. Yash Ortiz MD; Dr. Corie Cadet DO Structural Rigger: Signed Nicolas Ortiz Work Phone: Start: 09-23-2020 End: 10-05-2020 SCREEN MAMM (CAD) W/ISRAEL BILAT Comments: See Note; NOTES: [facility] Imaging Services [address] [place], [place] [id number] SCREEN MAMM (CAD) W/ISRAEL BILAT MR#: [id number] Acct: [id number] Name: SARAH CHÁVEZ Rep #: [id number] : 1955 F 64 From: Jefferson case MD PCP: Dr. Corie Cadet, Status: REG CLI Study: SCREEN MAMM (CAD) W/ISRAEL BILAT Date of Exam: Exam# [id number] Ordering Dr: [place] Charles CORE MAKER HELPER CORE MAKER HELPER-C MAMMOGRAPHY - BILATERAL SCREENING REASON FOR EXAM: Female, 64 years old. Routine annual screening examination. PERTINENT HISTORY: Non-contributory. History of remote left breast aspiration. TECHNIQUE: Digital bilateral breast israel (3D mammographic acquisition) in the CC and MLO projections. 2-D mediolateral oblique (MLO) and craniocaudad (CC) views of both breasts were obtained. CAD: Full Field Digital Mammography with Computer Added Detection was performed. COMPARISON: Comparison is made with prior outside examination dated 06/04/2019. FINDINGS: Breast Composition: The breasts are extremely dense, which lowers the sensitivity of mammography. There are no dominant masses or suspicious calcifications. No other significant abnormalities are identified. There has been no significant change since the prior study. BI/SCREEN MAMM (CAD) W/ISRAEL BILAT IMPRESSION: Stable bilateral screening mammogram. Yearly follow-up mammogram recommended. (A) ASSESSMENT CATEGORY: BIRADS Category 1: Negative. A letter regarding these results will be sent to the patient by the facility within 30 days. Approximately 10% of breast cancers are not detected by mammography. A normal mammogram should not delay biopsy of a clinically suspicious abnormality. [id number] Electronically Signed: Jefferson Tuttle, at 11:22 EST , Service support , CC: LAUREANO Charles; Dr. Corie Cadet DO Structural Rigger: Signed Corie Cadet Start: 07-29-2020 End: 07-29-2020 Inj/Asp Tyrese Jt Should/Hip/Knee Comments: See Note; NOTES: [facility] Imaging Services [address] [place] [address] [place] [address] Inj/Asp Tyrese Jt Should/Hip/Knee MR#: [id number] Acct: [id number] Name: SARAH CHÁVEZ Rep #: [id number] : 1955 F 64 From: Jefferson case MD PCP: Dr. Corie Cadet DO Status: REG CLI Study: Inj/Asp Tyrese Jt Should/Hip/Knee Date of Exam: 1 09/28/19 Exam# [id number] Ordering Dr: Lamberto Carbone MD PROCEDURE: Fluoroscopic guided right shoulder Injection DATE: 07/29/2020 INDICATION: Female, 64 years old. Chronic pain. PHYSICIAN: Jefferson Tuttle M.D. MEDICATIONS: 12 mg of PREDNISONE and 4 cc of 1% LIDOCAINE. 2% lidocaine administered subcutaneously for local anesthesia. ACCESS SITE: Right shoulder. NEEDLE: 22-gauge spinal needle. FLUOROSCOPY TIME (if supplied): (0:36) minutes/seconds FINDINGS: The risks, benefits, and alternatives to the procedure were explained to the patient. The specific risks of bleeding, infection, and neurovascular injury were detailed and accepted. Witnessed informed consent was obtained. A 22-gauge spinal needle was positioned under radiographic fluoroscopic localization . Approximately 2 cc of ISOVUE-300 instilled for localization purposes. Medication was then injected. The patient tolerated the procedure well without any immediate complications. RAD/Inj/Asp Tyrese Jt Should/Hip/Knee IMPRESSION: 1. Successful fluoroscopic guided right shoulder injection. Electronically Signed: Jefferson Tuttle, at 11:18 EST , Service support , CC: Dr. Corie Cadet DO; Dr. Lamberto Carbone MD Structural Rigger: Signed Corie Cadet Start: 04-05-2020 End: 04-05-2020 Emergency Department Summary Comments: See Note; NOTES: [facility] Medical Records Department [address] [place] [address] Emergency Department Summary 04/05/20 MR#: [id number] Acct: [id number] Name: SARAH CHÁVEZ Rep #: [id number] : 1955 64 From: Meredith Medeiros MD PCP: Dr. Corie Cadet DO Status:DEP ER History of Present Illness Chief Complaint: Allergic Reaction Informant: Patient Onset: Yesterday Current Severity: Mild Maximum Severity: Moderate Narrative: Patient presents secondary to lip swelling. She was seen in the ER yesterday after being stung by bees. She was discharged home with prescription for EpiPen, Pepcid, and prednisone. Patient states that her right hand still seems to be swollen today. She noted some redness across her chest and this afternoon she felt like her lips were swelling. She denies any tongue swelling or difficulty swallowing. She used her EpiPen approximate hour prior to arrival. Lips are improved at this time. - Past Medical History (1) No significant past medical history Status: Acute Past Medical History - Allergies and Home Meds Allergies/Adverse Reactions: Allergies bee venom protein (honey bee) Allergy (Verified 04/05/20 16:56) Anaphylaxis Primary Care Physician: Corie Cadet DO [Primary Care Provider] - Prior records reviewed: Yes Surgical History: appendectomy, cholecystectomy Lives: Spouse/ Significant Other Smoking Status: Never smoker Review of Systems General: Denies: Chills, Fever Eyes: Denies: Visual changes - bilaterally ENT: Denies: Bilateral ear pain Cardiovascular: Denies: Chest pain Respiratory: Denies: Dyspnea, Cough Gastrointestinal: Denies: Abdominal pain, Vomiting Genitourinary: Denies: Dysuria Musculoskeletal: Reports: Swelling. Denies: Extremity Pain Skin: Reports: Rash Neurological: Denies: Headache Hematologic: Denies: Easy bruising, Easy bleeding Allergy: Denies: Uticaria Physical Exam Vital Signs/Narrative: Vital Signs Temp Pulse Resp BP Pulse Ox 04/05/20 16:56 97.8 F 90 17 136/71 H 97 Inital Vital Signs reviewed: Yes General: Well nourished, Well developed Head: Normocephalic ENT: Moist mucous membranes, - - No lip edema noted at this time. Tongue is not edematous. Posterior pharynx exam is normal. Patient is speaking with a strong voice and tolerating secretions well. Neck: Supple Cardiovascular: Regular rate, Regular rhythm Respiratory: No distress, CTA bilaterally Abdomen: Soft, Nontender Extremities: Nontender Skin: - - Generalized erythema noted on the upper chest. Neurological: Alert, Oriented x3 Psychological: Normal affect Diagnostic/Tx/Re-eval - Medical Decision Making Patient was given Benadryl and Solu-Medrol here. She was observed for nearly 3 hours with no return of symptoms. She has not been taking Benadryl at home but states she will stop and get some on the way home tonight. She will be given a another prescription for an EpiPen since she will have one with her. ED Disposition - Plan for ED Patient: Disposition: Home or Assisted Living Diagnosis: Allergic reaction Instructions: ED BEE STING General Allergic Rxn Prescriptions: Epi Pen (for allergic rxn) 0.3 mg IM X1 PRN #1 syringe PRN Reason: Anaphylaxis Transmission Status: Pending to [id number] Referrals: Corie Cadet DO [Primary Care Provider] - 3-5 Days What to do if you have Problems For any increased pain, shortness of breath, bleeding, nausea or vomiting, chest pain, or any unexpected problems, contact your Primary Care Provider. Call [facility] ([phone]) or report to the closest Emergency Room. Call 911 if necessary. 04/05/20 2210 <Electronically signed by Meredith Medeiros MD> Date Meredith Medeiros MD Cosigner Signature (If Indicated): Date CC: DO Corie Hodges Start: 04-04-2020 End: 04-04-2020 Emergency Department Summary Comments: See Note; NOTES: [facility] Medical Records Department [address] [place] [address] Emergency Department Summary 04/04/20 MR#: [id number] Acct: [id number] Name: SARAH CHÁVEZ Rep #: [id number] : 1955 64 From: Abelardo Kohli MD PCP: Dr. Corie Cadet DO Status:REG ER History of Present Illness Chief Complaint: Allergic Reaction Detail of Chief Complaint: Done by 3 hornets or yellowjacket 30 minutes prior to arrival Informant: Patient, Significant Other Onset: Today Context: Sudden Onset Timing: Continuous Quality: Throat swelling, pruritic erythematous raised generalized rash Location: Throat and generalized Current Severity: Severe Maximum Severity: Severe Worsened by: Hymenoptera envenomation Relieved by: Nothing Associated Symptoms: Difficulty swallowing and paretic generalized erythematous blanching rash Narrative: Patient is a 64-year-old woman who presents after she was stung by either 3 hornets or 3 yellow jackets. She presents because of generalized erythematous rash. She has since developed swelling of her throat and difficulty swallowing. Patient states he was not able to lie back on the examination cot because she developed difficulty swallowing and became anxious. She sat up immediately. Patient denies prior allergy to yellow jackets or hornets. She has no food allergies. She has no allergies to medication. She denies history of coronary disease. She denies history of hypertension. She denies orthostatic symptoms. She denies nausea or vomiting. She denies wheezing. Prior similar symptoms: No Recent Illness/Hospitalizatio n: No - Past Medical History (1) No significant past medical history Status: Acute Past Medical History - Allergies and Home Meds Allergies/Adverse Reactions: Allergies bee venom protein (honey bee) Allergy (Verified 04/04/20 14:12) Anaphylaxis Primary Care Physician: Corie Cadet DO [Primary Care Provider] - As Needed Prior records reviewed: No Past Medical History: None Surgical History: appendectomy, cholecystectomy Lives: With Family Smoking Status: Never smoker Alcohol: Rare Drugs: None Review of Systems General: Denies: Chills, Fever, Malaise Eyes: Denies: Visual changes - bilaterally, Blurred Vision - bilaterally ENT: Reports: Sore throat. Denies: Bilateral ear pain, Rhinorrhea Cardiovascular: Denies: Chest pain, Palpitations Respiratory: Reports: Dyspnea. Denies: Cough, Sputum, Dyspnea on exertion Gastrointestinal: Denies: Abdominal pain, Nausea, Vomiting, Diarrhea, Melena, Hematochezia Musculoskeletal: Denies: Myalgias, Arthralgias, Neck pain, Back pain, Swelling, Extremity Pain Skin: Reports: Rash. Denies: Abscess, Wounds Neurological: Denies: Headache, Weakness, Parasthesia Psych: Reports: Anxiety Endocrine: Denies: Polyuria, Polydipsia Hematologic: Denies: Easy bruising, Easy bleeding Allergy: Reports: Uticaria, Swelling of the mouth Physical Exam Vital Signs/Narrative: Vital Signs Temp Pulse Resp BP Pulse Ox 04/04/20 14:10 97 F L 123 H 21 H 141/88 H 95 Inital Vital Signs reviewed: Yes General: Well nourished, Well developed, Acute Distress Head: Normocephalic, Atraumatic Eyes: Perrl, EOMI. Negative for: Pale conjunctiva, Scleral icterus ENT: Moist mucous membranes, No rhinorrhea, TM's clear, - - There is no angioedema of the lips or tongue. There may be slight swelling of the uvula. Trachea is midline. There is harsh sounds with inspiration and expiration. There is no true stridor. There is no cervical lymphadenopathy. Neck: Supple, Nontender, No lymphadenopathy, No JVD Cardiovascular: Regular rhythm, No murmurs, Normal S1, Normal S2, Tachycardia Respiratory: No distress, CTA bilaterally, Chest nontender Abdomen: Soft, Nontender, Nondistended, Normal bowel sounds Rectal: Deferred Back: Nontender, Normal Inspection Extremities: Nontender, No edema Skin: No Trauma, Rash - Blanching erythematous generalized rash with urticaria.. Negative for: Cyanosis, Diaphoresis Neurological: Alert, Oriented x3, Cranial nerves II-XII grossly intact, Normal Strength, Normal Sensation, Normal Gait Psychological: - - Patient is anxious. Diagnostic/Tx/Re-eval - Rhythm Strip Rhythm Strip: Sinus Tach Rate: 126 Ectopy: None - EKG Initial EKG Interpretation: Sinus Rhythm - Sinus rhythm with a ventricular rate of 98. IL interval 124 ms. QRS duration 94 ms. QT duration 360 ms. [place] is normal. There is an RR prime in V1 and V2. Findings are suggestive of incomplete right bundle branch block. - Medical Decision Making And has a generalized anaphylactic reaction to hymenoptera envenomation. She was treated with epinephrine followed by IV Benadryl, Pepcid and Solu-Medrol. Patient and were informed that she would be observed for minimum 4 to 6 hours. Because most pharmacies in [place] close a 6 PM a prescription was written for appendectomy in the event that she is able to go home. Patient was reassessed at 1455. Patient is resting comfortably. The erythematous blanching generalized rash with urticaria has improved markedly 80 to 90%. There is no abnormal respiratory sounds with inspiration or expiration over the trachea. Patient's lips in retrospect were swollen. Her lips are much smaller at this point as well as her tongue. 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 ED Disposition - Plan for ED Patient: Disposition: Home or Assisted Living Diagnosis: Anaphylaxis due to hymenoptera venom Instructions: ED BEE STING General Allergic Rxn Prescriptions: Prednisone [Deltasone] 40 mg PO DAILY #10 tab Transmission Status: Received by [id number] Epi Pen (for allergic rxn) 0.3 mg IM X1 #1 syringe Transmission Status: Pending to [id number] Famotidine [Pepcid] 20 mg PO BID #8 tab Transmission Status: Received by [id number] Referrals: Corie Cadet DO [Primary Care Provider] - As Needed What to do if you have Problems For any increased pain, shortness of breath, bleeding, nausea or vomiting, chest pain, or any unexpected problems, contact your Primary Care Provider. Call [facility] ([phone]) or report to the closest Emergency Room. Call 911 if necessary. 04/04/20 1501 <Electronically signed by Abelardo Kohli MD> Date Abelardo Kohli MD Cosigner Signature (If Indicated): Date CC: DO Corie Hodges Start: 04-04-2020 End: 04-05-2020 12 Lead EKG Comments: See Note; NOTES: [facility] Cardiovascular Services [address] [place] [address] 12 Lead EKG 04/04/20 1444 MR#: [id number] Acct: [id number] Name: SARAH CHÁVEZ Rep #: [id number] : 1955 64 From: David Daily MD Attending Dr: Status: DEP ER Ordering Dr: Abelardo Kohli MD Date: 04/04/20 Location: ED Sex: F C Admitted: Test Reason : Blood Pressure : / mmHG Vent. Rate : 098 BPM Atrial Rate : 098 BPM P-R Int : 124 ms QRS Dur : 094 ms QT Int : 360 ms P-R-T Axes : 060 001 045 degrees QTc Int : 459 ms Normal sinus rhythm Incomplete right bundle branch block Borderline ECG Confirmed by LOYD BAKER, DAVID ([id number]), publishing editor IRAIDA TURK ([id number]) on 04/05/2020 1:16:57 PM Referred By: Confirmed By:DAVID DAILY MD 04/05/20 1316 Date David Daily MD CC: Dr. Ramón Ha DO; Dr. Corie Cadet DO; Dr. Abelardo Kohli MD Signed Corie Cadet Start: 12-12-2018 End: 12-12-2018 Office Visit Report Comments: See Note; NOTES: [facility] Services [address] [place] [address] OFFICE VISIT Date of Service: 12/12/18 MR#: [id number] Acct: [id number] Patient: SARAH CHÁVEZ Rep #: [id number] : 1955 Provider: PASCUAL Sage Age/Sex: 63/F Location: [facility] Status: Signed Intake Vital Signs12/12/18 Height 5 ft 2 in 12/12/18 Weight: 116 lb 12/12/18 Body Mass Index (BMI) 21.2 12/12/18 Blood Pressure 116/78 Intake Visit Reasons: Urinary tract infection 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 Analyst Required: No Accompanied by: self Is patient in pain?: No Allergies No Known Allergies Allergy (Verified 12/12/18 13:31) Medications Celecoxib [Celebrex] mg PO .DAILY 03/20/14 [History Confirmed 12/12/18] sertraline 25 mg tablet 25 mg PO DAILY 12/12/18 [History Confirmed 12/12/18] sulfamethoxazole 800 mg-trimethoprim 160 mg tablet 1 tab PO Q12H 7 Days #14 tab 12/12/18 [Rx Confirmed 12/12/18] PFSH Medical History Anemia (Acute) Arthritis (Acute) History of hysterectomy (Acute) history of spur removal (Acute) Surgical History History of appendectomy (Acute) Social History Smoking Status: Never smoker alcohol intake: never HPI HPI Details: SARAH CHÁVEZ, is a 63 F who presents to the office today with a 3-4-day history of urinary symptoms. Patient states that she started to have some dysuria approximately 4 days ago and also began to have symptoms to include frequency and some hesitancy. Patient denies any evident blood in the urine, urine discoloration, severe back pains, fevers, chills, or other symptoms. Patient denies any recurrent UTIs or any kidney stone history. She does have a sister who has kidney stone issues. Exam Const General: cooperative, healthy appearing, comfortable, no acute distress, well developed, well groomed, not ill appearing, well hydrated Nutritional Appearance: average body habitus, well nourished Orientation: alert, awake, oriented x3 GI Inspection: non-distended Auscultation: normal bowel sounds Palpation: soft, no guarding, tender suprapubicly, other (Patient has some very minor discomfort with CVA palpation. No acute CVA tenderness) Results [facility] Office Urine Color DARK YELLOW Last Edit by Leena Jurado on 12/12/18 13:45 Assessment AND Plan 1. Acute cystitis with hematuria N30.01 Plan Patient presents today with a 3-4 day history of dysuria, urinary frequency, and urinary hesitancy. Urinalysis exam today shows some minor hematuria with some minor leukocyte esterase. Nitrites were negative. Patient states that she has urinated approximately 7 or 10 times already today. We did discuss that first morning urine specimen is recommended specimen to evaluate. She states that she has had urinary tract infections but has been several years so hard to remember symptoms at that time. She does not have any history of kidney stones. At this time we will begin antibiotic therapy while awaiting urine culture. We did discuss signs or symptoms to watch for and will want her to notify us of including gross hematuria, fever, chills, increase in back pain especially if symptoms present while on antibiotics. Otherwise no I still would want her to follow-up with her PCP or return to the office here in 3-5 days without any improvement. Patient in no other questions at this time. All of the questions were answered to her satisfaction. This note was generated with wireWAXation software. It may contain incorrect words, spelling, and punctuation that were not noted in checking the note before signing. Medications New: Plan Detail Other Orders Orders: Coding Level of Care Code Off vis,est,level 3 Diagnoses Acute cystitis with hematuria N30.01 Urinary tract infection type: acute cystitis Hematuria presence: with hematuria 12/12/18 1453 <Electronically signed by Tremayne GARNER> Date Tremayne GARNER Cosigner Signature: Date (if applicable) CC: Corie Cadet Start: 07-12-2018 End: 07-12-2018 Inital Evaluation (1) - PT Comments: See Note; NOTES: [facility] Physical [facility] [address] [place] [address]. [address] [place] [address] Fax REHABILITATION SERVICES INITIAL EVALUATION MR#: [id number] Acct: [id number] Name: SARAH CHÁVEZ Rep #: [id number] : 1955 62 From: Christina Villarreal MPT Referring : Status: REG RCR Insurance: [employer]URANCE Patient's Visit Information SARAH CHÁVEZ is a 62 year old F referred [...] and motor function, To increase tolerance to activity/condition/pos ition, To improve health of tissue, To decrease soft tissue restriction, To increase flexibility/ROM Therapeutic Exercise to Include: Strength training, Postural training, Flexibilty training, Passive ROM, Active ROM, Scapular Strength/Stabilization For the Purpose of:: To decrease pain, To decrease swelling/inflammation, To increase ROM, To improve nutrient delivery to tissue, To increase oxygenation perfusion, To improve ability to perform ADL's, To increase tolerance to activity/condition/pos ition, To decrease level of supervision to perform [...] to perform ADL's, To increase tolerance to activity/condition/pos ition, To improve health of tissue, To decrease [...] to be FAXED BACK to us at [phone] for Medicare purposes. Please let me know if there are questions or concerns regarding this plan of care. Physician Signature: Date:__ <Electronically signed by Christina Villarreal MPT> 07/12/18 1415 CC: SANA ADAME; Corie Cadet DO Signed For Medicare only, by signing this I certify the plan of care. Physicians Signature Date Corie Cadet Start: 06-18-2018 End: 06-18-2018 Cerv Spine 4 or 5 Views Comments: See Note; NOTES: [facility] Imaging Services [address] [place] [address] Cerv Spine 4 or 5 Views MR#: [id number] Acct: [id number] Name: KYLERSARAH Rep #: [id number] : 1955 F 62 From: Darren Ortega MD PCP: Corie Cadet DO Status: REG CLI Study: Cerv Spine 4 or 5 Views Date of Exam: 06/18/18 Exam# [id number] Ordering Dr: Allen Bae STUDY: X-RAY - [...] Service support , CC: Allen Bae; Corie Cadet DO Structural Rigger: Signed Corie Cadet Work Phone: Start: 06-04-2017 Colonoscopy [place] Charles APRN.DIRECTOR OF TESTING Work Phone: Start: 12-16-2015 End: 12-16-2015 Initial Evaluation - OT Comments: See Note; NOTES: [facility] Occupational Therapy [facility] [address] [place] [address] Fax REHABILITATION SERVICES INITIAL EVALUATION MR#: [id number] Acct: [id number] Name: SARAH CHÁVEZ Rep #: [id number] : 1955 60 From: Ana Denise Referring Dr.: Joseph Mayberry MD Status: REG R Insurance: [facility] Eval Date: Patient's Visit Information SARAH CHÁVEZ is a 60 year old F, referred to Occupational Therapy by Joseph Mayberry,, with a diagnosis of OA left CMC joint. Date of Evaluation: 12/15/15 Occupational Therapist: Ana Denise - Subjective Basal joint arthritis bothering pt for about a year. Cortisone injection about a month ago with some relief but not as much as anticipated. 41 years at [employer]. 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 - Objective Objective/Observation: no obvious thumb deformities - Strength Grinder Chipper: L 40# R 45# Lateral Pinch: L 10# R 12# Tripod Pinch: L 5# R 6# a little pain in left thumb - Rehabilitation Rehabilitation Potential: Excellent - Anticipated Interventions Other Interventions: CMC orthosis fabricated. Patient instructed in thumb stabilization exercises to do at home. No further tx recommended. Thank you for the opportunity to evaluate your patient. For Medicare and Medicare HMO plans, please review the plan of care and approve it. It will need to be FAXED BACK to us at [phone] for Medicare purposes. Please let me know if there are questions or concerns regarding this plan of care. Physician Signature: Date:__ <Electronically signed by Ana Denise > 12/16/15922 CC: Joseph Mayberry MD; Corie Cadet DO MG Signed For Medicare only, by signing this I certify the plan of care. Physicians Signature Date Corie Cadet Start: 12-16-2015 End: 12-16-2015 OT D/C Summary Comments: See Note; NOTES: [facility] Occupational Therapy [facility] [address] [place] [address]. [address] [place], [place] [id number] Fax REHABILITATION SERVICES DISCHARGE SUMMARY MR#: [id number] Acct: [id number] Name: SARAH CHÁVEZ Rep #: [id number] : 1955 60 From: Ana Denise Referring Dr.: Joseph Mayberry MD Status: REG RCR Eval Date: Discharge Date: - OT D/C Summary It has been my pleasure to treat SARAH CHÁVEZ under orders from Joseph Mayberry, for the diagnosis of OA left CMC joint for a total of 1 visit(s). Please see the following information for a summary of their discharge status. - D/C Information Discharge Comments: Pt seen for one visit for CMC orthosis and instruction in thumb stabilization exercises. If there are questions or concerns regarding this patient's occupational therapy, please fell free to call me at [phone]. Thank you for the referral of this patient. Sincerely, Ana Denise <Electronically signed by Ana Denise > 12/16/1523 CC: Joseph Mayberry MD; Corie Cadet DO MG Signed Corie Cadet Start: 11-27-2015 End: 11-27-2015 Emergency Department Summary Comments: See Note; NOTES: [facility] Medical Records Department [address] [place] [address] Emergency Department Summary MR#: [id number] Acct: [id number] Name: SARAH CHÁVEZ Rep #: [id number] : 1955 60 From: Urban Wood MD PCP: Corie Cadet DO Status: DEP ER DATE OF SERVICE: 11/27/2015 CHIEF COMPLAINT: Diarrhea. HISTORY OF PRESENT ILLNESS: This is a 60-year-old female who has had diarrhea for almost a week. She has had some mild cramping abdominal pain diffusely. She describes nausea without vomiting, but her main complaint is diarrhea. She has had multiple episodes of loose watery stools greater than 20 per day, no blood. She has had no other URI symptoms. She denies fevers. She has tried Imodium without relief. She ____ a history of osteoporosis. PHYSICAL EXAMINATION: VITAL SIGNS: Reviewed. GENERAL: Well-developed female, in no distress. HEENT: Normal. HEART: Regular rate and rhythm. LUNGS: Clear. ABDOMEN: Soft with very mild diffuse tenderness. EXTREMITIES: Reveal no edema. NEUROLOGIC: Normal. EMERGENCY DEPARTMENT COURSE: The patient was given IV fluids as well as Zofran. Laboratory studies showed a potassium of 3, BUN of 6, rest were unremarkable. Upon reevaluation, she feels better. Her diarrhea is likely viral. There is no blood. Her hemoglobin is normal. I do not feel any reason to do any other laboratory testing. I will send the patient home with Lomotil in case her diarrhea gets worse again, it is improved now. She has had no episodes since she has been here. She will call her doctor for followup appointment. DISPOSITION: Discharge. DIAGNOSIS: Diarrhea. Urban Wood MD T: NTS JOB: [id number] 11/27/15 0626 <Electronically signed by Urban Wood MD> Date Urban Wood MD Cosigner Signature (If Indicated): Date CC: Corie Cadet DO Date Dictated: 11/27/15537 Date Transcribed: 11/27/15537 Structural Rigger: Signed Corie Cadet Start: 11-27-2015 End: 11-27-2015 Discharge Instruction Comments: See Note; NOTES: [facility] Medical Records Department [address] [place] [address] Discharge Instruction 11/27/1535 MR#: [id number] Acct: [id number] Name: SARAH CHÁVEZ Rep #: [id number] : 1955 60 From: Urban Wood MD PCP: Corie Cadet DO Status: REG ER ED Disposition - Plan for ED Patient: Disposition: Home or Assisted Living Chief Complaint: Nausea/Vomiting/Diarrh ea Diagnosis: Diarrhea Prescriptions: Diphenoxylate/Atrop [Lomotil] 1 tablet PO TID PRN PRN #20 tablet PRN Reason: Diarrhea Referrals: Corie Cadet DO [Primary Care Provider] - What to do if you have Problems For any increased pain, shortness of breath, bleeding, nausea or vomiting, chest pain, or any unexpected problems, contact your doctor. Call [facility] ([phone]) or report to the closest Emergency Room. Call 911 if necessary. 11/27/1536 <Electronically signed by Urban Wood MD> Date Urban Wood MD Cosigner Signature (If Indicated): Date CC: Corie Sofia Start: 06-25-2015 Foot structure (body structure) ERIKA QUEZADA MD Comment on above: Left Start: 06-14-2015 End: 06-14-2015 Ecg routine ecg w/least 12 lds w/i&r [MEASUREMENTS ANALYSIS] Date of Test: 06/14/2015 10:00:12; Heart Rate: 79; IL Interval: 116; QRS: 94; QT Interval: 378; Corrected QT Interval (QTc): 411; P Wave [place]: 37; QRS Wave [place]: -1; T Wave [place]: 20; Blood Pressure: 114/72 [ECG DIAGNOSTIC STATEMENTS] Date of Test: 06/14/2015 10:00:12; Summary: Sinus Rhythm -Short IL syndrome Amado = 116BORDERLINE RHYTHM Cadence Harrison Work Phone: Start: 12-25-2013 End: 12-25-2013 Carpal Tunnel Surgery - Left Katie montero Start: 12-25-2013 End: 12-25-2013 Decompression of median nerve Sasha jennings Start: 09-04-2005 Lipid 1996 panel - Serum or Plasma Screen Wstr Appendectomy ERIKA SUN MD Arthroscopy of shoulder LYN SUN MD Comment on above: R shoulder Carpal tunnel repair Katie Hernandez Comment on above: 03/30/10 rt Carpal tunnel repair Jaden Ac Comment on above: 03/30/10 rt Carpal tunnel repair Christina Phoebe Comment on above: 03/30/10 rt Carpal tunnel repair Christina Phoebe Comment on above: 03/30/10 rt Carpal tunnel repair Sasha Verdin Comment on above: 03/30/10 rt Cholecystectomy ERIKA SUN MD Cholecystectomy Cholecystectomy Corie Cady Cholecystectomy Cholecystectomy Corie Cady Cholecystectomy Cholecystectomy Corie Cady Cholecystectomy Cholecystectomy Corie Cady Cholecystectomy Cholecystectomy Sasha Cr oss TRAFFIC RATE CLERK Cholecystectomy Cholecystectomy Sasha Cr oss TRAFFIC RATE CLERK Cholecystectomy Christina Slarb TRAFFIC RATE CLERK Cholecystectomy Kayela Radfo rd BOLOGNA LACER Cholecystectomy Gavin Angleton TRAFFIC RATE CLERK Colonoscopy Katie Hernandez Comment on above: 07-23-09 Colonoscopy Jaden Ac Comment on above: 07-23-09 Colonoscopy Christina Slacynthia Comment on above: 07-23-09 Colonoscopy Christina Slacynthia Comment on above: 07-23-09 Colonoscopy Sasha Verdin Comment on above: 07-23-09 Decompression of median nerve ERIKA SUN MD Comment on above: Bilateral Esophagogastroduoden oscopy with insertion of guide wire and dilation of esophagus ERIKA SUN MD H/O: hysterectomy S/P hysterectomy ERIKA SUN MD History of decompres huogn of median nerve Sasha Verdin Comment on above: 03/30/10 rt History of decompres huong of median nerve Sasha Verdin TRAFFIC RATE CLERK Comment on above: 03/30/10 rt History of decompres huong of median nerve Christina Slarb TRAFFIC RATE CLERK History of decompres huong of median nerve Galen James BOLOGNA LACER History of decompres huong of median nerve Gavin Cony TRAFFIC RATE CLERK Hysterectomy ERIKA SUN MD Past history of procedure As kian Verdin Comment on above: 07-23-09 Past history of procedure As kian Verdin LPN Comment on above: 07-23-09 Past history of procedure An woody Ameerb TRAFFIC RATE CLERK Past history of procedure Maynor James BOLOGNA LACER Past history of procedure Da tomi Angleton TRAFFIC RATE CLERK Tonsillectomy ERIKA Shepherd Tonsillectomy Tonsillectomy Corie Fear on Tonsillectomy Tonsillectomy Corie Fear on Tonsillectomy Tonsillectomy Corie Fear on Tonsillectomy Tonsillectomy Corie Fear on Tonsillectomy Tonsillectomy Sasha Cross TRAFFIC RATE CLERK Tonsillectomy Tonsillectomy Sasha Cross TRAFFIC RATE CLERK Tonsillectomy Christina Slarb L PN Tonsillectomy Galen James BOLOGNA LACER Tonsillectomy Gavin Cony L PN Total hysterectomy Katie Lo cklear Total hysterectomy Jaden ith Total hysterectomy Christina Sl arb Total hysterectomy Christina Sl arb Total hysterectomy Sasha Cr oss Total hysterectomy Sasha Cr oss TRAFFIC RATE CLERK Total hysterectomy Christina Sl arb TRAFFIC RATE CLERK Total hysterectomy Endera Ra yadav BOLOGNA LACER Total hysterectomy Gavin Pr yor TRAFFIC RATE CLERK Plan of Treatment Date Care Activity Detail Author Start: 02-11-2026 End: 02-11-2026 Patient encounter procedure 02/11/2026 10:30 AM EDT Office Visit [facility] [address] [place] [address] Joseph Caceres, OD [address] [place] [address] Eye exam-Dry Eyes/Medicare/[facility] Optometry Comment on above: Eye exam-Dry Eyes/Medicare/[facility] Start: 05-25-2025 Influenza vaccination Influenza Vaccine (Season Ended) [facility] Start: 02-06-2025 End: 02-06-2025 Patient encounter procedure 02/06/2025 12:55 PM EDT Office Visit [facility] [address] [place] [address] Joseph Caceres, OD [address] [place] [address] 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 Start: 09-24-2024 Advance Directive Discussion Advance Directive Discussion [facility] Start: 09-21-2024 [facility] Start: 09-21-2024 [facility] Start: 08-12-2024 End: 08-12-2024 Patient encounter procedure 08/12/2024 9:45 AM EST Office Visit [facility] [address] [place] [address] Veronica Jurado, OD [address] [place] [address] 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 Start: 05-25-2024 Covid-19 Vaccine ( season) Covid-19 Vaccine () [facility] Start: 05-25-2024 Influenza vaccination [facility] Start: 12-16-2023 Mammography [facility] Start: 12-16-2023 Screening for malignant neoplasm of breast Mammogram Screening [facility] Start: 09-24-2023 Advance Directive Discussion Advance Directive Discussion [facility] Start: 09-24-2023 Behavioral Health Screening Behavioral Health Screening [facility] Start: 09-24-2023 Depression Assessment Depression Assessment [facility] Start: 05-25-2023 Covid-19 Vaccine ( season) Covid-19 Vaccine () [facility] Start: 05-25-2023 Influenza vaccination Influenza Vaccine (#1) [facility] Start: 02-22-[address] [facility]; [facility] Work Phone: Start: 02-22-2023 Provider Instructions for Treatment [facility]; [facility] Work Phone: Start: 02-22-2023 Assay of ferritin [facility]; [facility] Work Phone: Start: 02-22-2023 Assay of magnesium [facility]; [facility] Work Phone: Start: 02-22-2023 25 hydroxy includes fractions if performed [facility]; [facility] Work Phone: Start: 02-22-2023 Comprehensive metabolic panel [facility]; [facility] Work Phone: Start: 02-22-2023 Blood count complete auto&auto difrntl wbc [facility]; [facility] Work Phone: Start: 02-22-2023 Assay of thyroid stimulating hormone tsh [facility]; [facility] Work Phone: Start: 02-22-[address] [facility]; [facility] Work Phone: Start: 09-24-2022 ADVANCE DIRECTIVE DISCUSSION ADVANCE DIRECTIVE DISCUSSION [facility] Start: 09-24-2022 DEPRESSION ASSESSMENT DEPRESSION ASSESSMENT [facility] Start: 09-08-2022 Mammography MAMMOGRAM [facility] Start: 06-04-2022 Colonoscopy COLONOSCOPY [facility] Start: 06-04-2022 COLORECTAL CANCER SCREENING COLORECTAL CANCER SCREENING [facility] Start: 06-04-2022 Screening for malignant neoplasm of colon [facility] Start: 05-25-2022 Influenza vaccination INFLUENZA (#1) [facility] Start: 05-22-2022 25 hydroxy includes fractions if performed [facility]; [facility] Work Phone: Start: 05-22-2022 Antinuclear antibodies dandy [facility]; [facility] Work Phone: Start: 05-22-2022 Assay of folic acid serum [facility]; [facility] Work Phone: Start: 05-22-2022 Assay of thyroid stimulating hormone tsh [facility]; [facility] Work Phone: Start: 05-22-2022 Blood count complete automated [facility]; [facility] Work Phone: Start: 05-22-2022 C-reactive protein [facility] Work Phone: Start: 05-22-2022 Comprehensive metabolic panel [facility]; [facility] Work Phone: Start: 05-22-2022 Cyanocobalamin vitamin b-12 [facility]; [facility] Work Phone: Start: 05-22-2022 Sedimentation rate rbc non-automated [facility]; [facility] Work Phone: Start: 05-22-2022 Procedure Education [facility]; [facility] Work Phone: Start: 05-22-2022 Provider Instructions for Treatment [facility]; [facility] Work Phone: Start: 10-03-2021 Procedure Education [facility]; [facility] Work Phone: Start: 10-03-2021 Provider Instructions for Treatment [facility]; [facility] Work Phone: Start: 09-24-2021 ADVANCE DIRECTIVE DISCUSSION ADVANCE DIRECTIVE DISCUSSION [facility] Start: 09-24-2021 DEPRESSION ASSESSMENT DEPRESSION ASSESSMENT [facility] Start: 07-18-2021 Procedure Education [facility]; [facility] Work Phone: Start: 07-18-2021 Fibrin dgradj products d-dimer quantitative [facility]; [facility] Work Phone: Start: 07-04-2021 Procedure Education [facility]; [facility] Work Phone: Start: 07-04-2021 Provider Instructions for Treatment [facility]; [facility] Work Phone: Start: 06-15-[address] [facility]; [facility] Work Phone: Start: 06-15-2021 Assay of thyroid stimulating hormone tsh [facility]; [facility] Work Phone: Start: 06-15-2021 Comprehensive metabolic panel [facility]; [facility] Work Phone: Start: 06-15-2021 Blood count complete auto&auto difrntl wbc [facility]; [facility] Work Phone: Start: 03-14-2021 COVID-19 VACCINE (3 - Booster for Pfizer series) COVID-19 VACCINE (3 - Booster for Pfizer series) [facility] Start: 03-03-2021 Procedure Education [facility]; [facility] Work Phone: Start: 03-03-2021 Lipid panel LIPID PANEL (03190) [facility]; [facility] Work Phone: Start: 03-03-2021 25 hydroxy includes fractions if performed CALCIFIDIOL (22397) VIT D 25 [facility]; [facility] Work Phone: Start: 03-03-2021 Assay of thyroid stimulating hormone tsh TSH (42097) [facility]; [facility] Work Phone: Start: 03-03-2021 Comprehensive metabolic panel METABOLIC PANEL, COMPREHENSIVE (52893) [facility]; [facility] Work Phone: Start: 2020 BONE DENSITY BONE DENSITY [facility] Start: 2020 Bone Density Screening Bone Density Screening [facility] Start: 2020 Pneumococcal Vaccine: 65+ (1 - PCV) Pneumococcal Vaccine: 65+ (1 - PCV) [facility] Start: 2020 Pneumococcal Vaccine: 65+ (1 of 1 - PCV) Pneumococcal Vaccine: 65+ (1 of 1 - PCV) [facility] Start: 2020 PNEUMOCOCCAL: 65+ (1 - PCV) PNEUMOCOCCAL: 65+ (1 - PCV) [facility] Start: 2020 Screening for osteoporosis Bone Density Screening [facility] Start: 07-01-2020 Iaadiadoo influenza 2019 Novel Coronavirus (COVID-19), AKIL (55090) [facility] Work Phone: Start: 11-03-[address] [facility] Work Phone: Start: 11-03-[address] Education [facility] Work Phone: Start: 11-03-2019 Provider Instructions for Treatment [facility] Work Phone: Start: 06-23-[address] [facility] Work Phone: Start: 06-23-[address] [facility] Work Phone: Start: 06-23-2019 Provider Instructions for Treatment [facility] Work Phone: Start: 06-23-2019 Culture bct isol&prsmptv id isolate ea urine URINE BURKE CULTURE-IDENTIFICATN (75594) [facility] Work Phone: Start: 02-18-[address] Procedure Education [facility] Work Phone: Start: 02-18-2019 Provider Instructions for Treatment [facility] Work Phone: Start: 11-26-2018 Procedure Education [facility] Work Phone: Start: 11-26-2018 Provider Instructions for Treatment [facility] Work Phone: Start: 06-14-[address] Education [facility] Work Phone: Start: 06-14-2018 Extractable nuclear antigen antibody any method [facility] Work Phone: Start: 06-14-2018 Dna antibody unga/double stranded [facility] Work Phone: Start: 06-14-2018 Rheumatoid factor quantitative [facility] Work Phone: Start: 06-14-2018 ANCA-P (ANTI NEUTROPHIL CYTOPLASMIC ANTIBODY) [facility] Work Phone: Start: 06-21-[address] Procedure Education [facility] Work Phone: Start: 06-21-2016 Provider Instructions for Treatment [facility] Work Phone: Start: 12-08-[address] Education [facility] Work Phone: Start: 12-08-2015 Procedure Education [facility] Work Phone: Start: 12-08-2015 Provider Instructions for Treatment [facility] Work Phone: Start: 11-08-2015 Provider Instructions for Treatment [facility] Work Phone: Start: 2015 RSV Vaccine (1 - 1-dose 60+ series) RSV Vaccine (1 - 1-dose 60+ series) [facility] Start: 12-09-2014 Cobalamin (Vitamin B12) mass conc VITAMIN B-12 (CYANOCOBALAMIN) (63740) [facility] Work Phone: Start: 12-09-2014 Cyanocobalamin vitamin b-12 [facility]; [facility] Work Phone: Start: 12-09-2014 Comprehensive metabolic panel [facility] Work Phone: Start: 12-09-2014 25 hydroxy includes fractions if performed [facility] Work Phone: Start: 12-09-2014 Assay of thyroid stimulating hormone tsh [facility]; [facility] Work Phone: Start: 12-09-2014 Thyrotropin Qn TSH (29618) [facility] Work Phone: Start: 12-09-2014 Blood count complete automated [facility] Work Phone: Start: 12-09-[address] Procedure Education [facility] Work Phone: Start: 12-09-2014 Provider Instructions for Treatment [facility] Work Phone: Start: 08-19-2014 Assay of free thyroxine [facility]; [facility] Work Phone: Start: 08-19-2014 T4 free mass conc T4, FREE (THYROXINE) ([id number]) [facility] Work Phone: Start: 08-19-2014 Assay of triiodothyronine t3 free [facility]; [facility] Work Phone: Start: 08-19-2014 T3 free mass conc T3, FREE (TRIDOTHYRONINE) (59044) [facility] Work Phone: Start: 08-19-2014 Organic acid 1 quantitative [facility] Work Phone: Start: 08-19-2014 Assay of iron [facility]; [facility] Work Phone: Start: 08-19-2014 Iron mass conc IRON (57452) [facility] Work Phone: Start: 08-19-2014 Assay of homocysteine [facility] Work Phone: Start: 08-19-2014 Assay of ferritin [facility]; [facility] Work Phone: Start: 08-19-2014 Ferritin mass conc FERRITIN (81123) [facility] Work Phone: Start: 08-19-2014 Dehydroepiandrosterone-harris lfate [facility] Work Phone: Start: 08-19-2014 25 hydroxy includes fractions if performed [facility] Work Phone: Start: 08-19-2014 Assay of folic acid serum [facility] Work Phone: Start: 08-19-2014 Assay of thyroid stimulating hormone tsh [facility]; [facility] Work Phone: Start: 08-19-2014 Cobalamin (Vitamin B12) mass conc VITAMIN B-12 (CYANOCOBALAMIN) (09826) [facility] Work Phone: Start: 08-19-2014 Cyanocobalamin vitamin b-12 [facility]; [facility] Work Phone: Start: 08-19-2014 Rheumatoid factor quantitative [facility] Work Phone: Start: 08-19-2014 Sedimentation rate rbc non-automated [facility] Work Phone: Start: 08-19-2014 Thyrotropin Qn TSH (51409) [facility] Work Phone: Start: 08-19-2014 Antinuclear antibodies dandy [facility]; [facility] Work Phone: Start: 08-19-2014 Blood count complete automated [facility] Work Phone: Start: 08-19-2014 C-reactive protein [facility]; [facility] Work Phone: Start: 08-19-2014 Comprehensive metabolic panel [facility] Work Phone: Start: 08-19-2014 CRP mass conc C-REACTIVE PROTEIN (19495) [facility] Work Phone: Start: 08-19-2014 Nuclear Ab IF titer (S) DANDY (ANTINUCLEAR ANTIBODY) (02586) [facility] Work Phone: Start: 08-19-2014 Provider Instructions for Treatment [facility] Work Phone: Start: 06-30-2014 Provider Instructions for Treatment [facility] Work Phone: Start: 02-22-2014 Assay of free thyroxine [facility]; [facility] Work Phone: Start: 02-22-2014 T4 free mass conc T4, FREE (THYROXINE) (40840) [facility] Work Phone: Start: 02-22-2014 Assay of triiodothyronine t3 free [facility]; [facility] Work Phone: Start: 02-22-2014 T3 free mass conc T3, FREE (TRIDOTHYRONINE) (80403) [facility] Work Phone: Start: 02-22-2014 Assay of thyroid stimulating hormone tsh [facility]; [facility] Work Phone: Start: 02-22-2014 Thyrotropin Qn TSH ([id number]) [facility] Work Phone: Start: 02-22-2014 25 hydroxy includes fractions if performed [facility] Work Phone: Start: 01-02-2014 Provider Instructions for Treatment [facility] Work Phone: Start: 12-30-2013 Provider Instructions for Treatment [facility] Work Phone: Start: 12-30-2013 Assay of thyroid stimulating hormone tsh [facility]; [facility] Work Phone: Start: 12-30-2013 Thyrotropin Qn TSH (67782) [facility] Work Phone: Start: 12-30-2013 HCG.beta subunit ( test) Ql (U) Urine Test, Office (66908) [facility] Work Phone: Start: 12-30-2013 Urine test visual color cmprsn meths [facility]; [facility] Work Phone: Start: 12-30-2013 Comprehensive metabolic panel [facility] Work Phone: Start: 10-22-2013 Iaadiadoo influenza [facility] Work Phone: Start: 10-22-2013 Provider Instructions for Treatment [facility] Work Phone: Start: 07-15-2013 Provider Instructions for Treatment [facility] Work Phone: Start: 05-01-2013 Provider Instructions for Treatment [facility] Work Phone: Start: 04-23-2013 Provider Instructions for Treatment [facility] Work Phone: Start: 12-30-2012 Provider Instructions for Treatment [facility] Work Phone: Start: 12-15-2011 Heavy metal qualitative any analytes [facility] Work Phone: Start: 12-11-2011 Provider Instructions for Treatment [facility] Work Phone: Start: 12-05-2011 Glucose mass conc Glucose, PP/2 Hour (91702) [facility] Work Phone: Start: 12-05-2011 Glucose quantitative blood xcpt reagent strip [facility]; [facility] Work Phone: Start: 12-04-2011 Assay of zinc [facility] Work Phone: Start: 12-04-2011 Comprehensive metabolic panel [facility] Work Phone: Start: 12-04-2011 Cobalamin (Vitamin B12) mass conc VITAMIN B-12 (CYANOCOBALAMIN) (19132) [facility] Work Phone: Start: 12-04-2011 Cyanocobalamin vitamin b-12 [facility]; [facility] Work Phone: Start: 12-04-2011 Assay of thyroid stimulating hormone tsh [facility]; [facility] Work Phone: Start: 12-04-2011 Thyrotropin Qn TSH (59268) [facility] Work Phone: Start: 12-04-2011 Sedimentation rate rbc non-automated [facility] Work Phone: Start: 12-04-2011 C-reactive protein [facility]; [facility] Work Phone: Start: 12-04-2011 CRP mass conc C-REACTIVE PROTEIN (42357) [facility] Work Phone: Start: 12-04-2011 Blood count complete automated [facility] Work Phone: Start: 12-04-2011 Antinuclear antibodies dandy [facility]; [facility] Work Phone: Start: 12-04-2011 Nuclear Ab IF titer (S) DANDY (ANTINUCLEAR ANTIBODY) (36684) [facility] Work Phone: Start: 06-26-2011 Basic metabolic panel calcium total [facility] Work Phone: Start: 06-26-2011 Blood count reticulocyte automated [facility] Work Phone: Start: 06-26-2011 Blood count manual cell count each [facility] Work Phone: Start: 06-19-2011 Culture bacterial quanttative colony count urine [facility] Work Phone: Start: 01-30-2011 Blood count manual cell count each [facility] Work Phone: Start: 01-09-2011 Provider Instructions for Treatment [facility] Work Phone: Start: 01-05-2011 Blood count reticulocyte automated [facility] Work Phone: Start: 01-05-2011 Blood count complete automated [facility] Work Phone: Start: 12-30-2010 Blood smear peripheral interp phys w/writ report [facility] Work Phone: Start: 12-30-2010 Blood count reticulocyte automated [facility] Work Phone: Start: 12-30-2010 Blood count manual cell count each [facility] Work Phone: Start: 12-28-2010 25 hydroxy includes fractions if performed [facility] Work Phone: Start: 12-28-2010 Sedimentation rate rbc non-automated [facility] Work Phone: Start: 12-28-2010 Urinalysis qual/semiquant except immunoassays [facility] Work Phone: Start: 12-28-2010 Comprehensive metabolic panel [facility] Work Phone: Start: 12-28-2010 Blood count reticulocyte automated [facility] Work Phone: Start: 12-28-2010 Blood count manual cell count each [facility] Work Phone: Start: 12-28-2010 Provider Instructions for Treatment [facility] Work Phone: Start: 12-19-2010 Provider Instructions for Treatment [facility] Work Phone: Start: 12-05-2010 Provider Instructions for Treatment [facility] Work Phone: Start: 09-04-2010 Lipid 1996 panel - Serum or Plasma Lipid Screening [facility] Start: 09-04-2010 Lipid panel Lipid Screening [facility] Start: 09-04-2010 LIPID SCREEN LIPID SCREEN [facility] Start: 08-08-2010 Provider Instructions for Treatment [facility] Work Phone: Start: 07-12-2010 Provider Instructions for Treatment [facility] Work Phone: Start: 04-29-2010 Provider Instructions for Treatment [facility] Work Phone: Start: 10-25-2009 Provider Instructions for Treatment [facility] Work Phone: Start: 07-19-[address] [facility] Work Phone: Start: 07-19-2009 Blood occult fecal hgb deter ia qual feces 1-3 [facility] Work Phone: Start: 07-19-2009 Antihuman globulin direct each antiserum [facility] Work Phone: Start: 07-19-2009 Assay of folic acid serum [facility] Work Phone: Start: 07-19-2009 Organic acid 1 quantitative [facility] Work Phone: Start: 07-19-2009 Cobalamin (Vitamin B12) mass conc VITAMIN B-12 (CYANOCOBALAMIN) (92649) [facility] Work Phone: Start: 07-19-2009 Cyanocobalamin vitamin b-12 [facility]; [facility] Work Phone: Start: 07-19-2009 Blood count reticulocyte automated [facility] Work Phone: Start: 07-19-2009 Lactate dehydrogenase ldh [facility] Work Phone: Start: 07-19-2009 Assay of iron [facility]; [facility] Work Phone: Start: 07-19-2009 Iron binding capacity [facility] Work Phone: Start: 07-19-2009 Iron mass conc IRON (38647) [facility] Work Phone: Start: 07-19-2009 Assay of ferritin [facility]; [facility] Work Phone: Start: 07-19-2009 Ferritin mass conc FERRITIN (84372) [facility] Work Phone: Start: 07-19-2009 Assay of haptoglobin quantitative [facility] Work Phone: Start: 07-19-2009 Blood count complete auto&auto difrntl wbc [facility] Work Phone: Start: 07-19-[address] Patient Education [facility] Work Phone: Start: 07-19-2009 Provider Instructions for Treatment [facility] Work Phone: Start: 04-14-[address] Patient Education [facility] Work Phone: Start: 04-14-2009 Provider Instructions for Treatment [facility] Work Phone: Start: 04-14-2009 Blood occult fecal hgb deter ia qual feces 1-3 [facility] Work Phone: Start: 04-14-2009 Blood count complete auto&auto difrntl wbc [facility] Work Phone: Start: 01-25-2009 Antinuclear antibodies dandy [facility]; [facility] Work Phone: Start: 01-25-2009 Assay of thyroid stimulating hormone tsh [facility]; [facility] Work Phone: Start: 01-25-2009 Blood count manual cell count each [facility] Work Phone: Start: 01-25-2009 C-reactive protein [facility]; [facility] Work Phone: Start: 01-25-2009 Comprehensive metabolic panel [facility] Work Phone: Start: 01-25-2009 CRP mass conc C-REACTIVE PROTEIN (26389) [facility] Work Phone: Start: 01-25-2009 Nuclear Ab IF titer (S) DANDY (ANTINUCLEAR ANTIBODY) (38180) [facility] Work Phone: Start: 01-25-2009 Rheumatoid factor quantitative [facility] Work Phone: Start: 01-25-2009 Sedimentation rate rbc non-automated [facility] Work Phone: Start: 01-25-2009 Thyrotropin Qn TSH (76826) [facility] Work Phone: Start: 09-02-2008 DIABETES SCREEN DIABETES SCREEN [facility] Start: 09-02-2008 Diabetes Screening Diabetes Screening [facility] Start: 11-25-2007 Provider Instructions for Treatment [facility] Work Phone: Start: 11-18-2007 Provider Instructions for Treatment [facility] Work Phone: Start: 11-18-2007 Creatine kinase total [facility] Work Phone: Start: 11-18-2007 C-reactive protein [facility] Work Phone: Start: 11-18-2007 CRP mass conc C-Reactive Protein (37260) [facility] Work Phone: Start: 11-18-2007 Sedimentation rate rbc non-automated [facility] Work Phone: Start: 08-28-2007 Provider Instructions for Treatment [facility] Work Phone: Start: 04-29-2007 Provider Instructions for Treatment [facility] Work Phone: Start: 04-01-[address] [facility] Work Phone: Start: 04-01-2007 Provider Instructions for Treatment [facility] Work Phone: Start: 10-29-2006 Provider Instructions for Treatment [facility] Work Phone: Start: 10-10-2006 Provider Instructions for Treatment [facility] Work Phone: Start: 10-07-2006 Assay of folic acid serum [facility] Work Phone: Start: 10-07-2006 Cobalamin (Vitamin B12) mass conc VITAMIN B-12 (CYANOCOBALAMIN) (98613) [facility] Work Phone: Start: 10-07-2006 Cyanocobalamin vitamin b-12 [facility]; [facility] Work Phone: Start: 10-07-2006 Assay of thyroid stimulating hormone tsh [facility]; [facility] Work Phone: Start: 10-07-2006 Thyrotropin Qn TSH (78462) [facility] Work Phone: Start: 10-07-2006 Rheumatoid factor quantitative [facility] Work Phone: Start: 10-07-2006 Sedimentation rate rbc non-automated [facility] Work Phone: Start: 10-07-2006 Comprehensive metabolic panel [facility] Work Phone: Start: 10-07-2006 C-reactive protein [facility] Work Phone: Start: 10-07-2006 CRP mass conc C-REACTIVE PROTEIN (18391) [facility] Work Phone: Start: 10-07-2006 Blood count complete automated [facility] Work Phone: Start: 10-07-2006 Antinuclear antibodies dandy [facility]; [facility] Work Phone: Start: 10-07-2006 Nuclear Ab IF titer (S) DANDY (ANTINUCLEAR ANTIBODY) (12208) [facility] Work Phone: Start: 10-07-2006 Provider Instructions for Treatment [facility] Work Phone: Start: 2005 SHINGRIX VACCINE (1 of 2) SHINGRIX VACCINE (1 of 2) [facility] Start: 2000 COLOGUARD (FIT-DNA) COLOGUARD (FIT-DNA) [facility] Start: [address] COLONOGRAPHY [facility] Start: 2000 FECAL OCCULT BLOOD FECAL OCCULT BLOOD [facility] Start: 2000 Screening for malignant neoplasm of colon [facility] Start: 2000 SIGMOIDOSCOPY SIGMOIDOSCOPY [facility] Start: 1974 Urine microalbumin profile [facility] Start: 1973 Depression Screening Depression Screening [facility] Start: 1973 HEPATITIS C SCREENING HEPATITIS C SCREENING [facility] Start: 1973 Hepatitis C screening Hepatitis C Screening [facility] End: 08-13-2023 [place]ON SCREENING [place] [facility]CRE[facility] [place] Radiology Routine Encounter for screening mammogram for malignant neoplasm of breast Dense breast tissue on mammogram 1 Occurrences starting 07/14/2022 until 08/13/2023 [facility] Work Phone: Comment on above: 1 Occurrences starting 07/14/2022 until 08/13/2023 Patient referral [facility] Work Phone: [facility] Work Phone: [facility] Work Phone: [facility] Work Phone: [facility] Work Phone: [facility] Work Phone: [facility] Work Phone: [facility] Work Phone[facility] Work Phone: [facility] Work Phone[facility] Work Phone[facility] Work Phone: [facility] Work Phone: [facility] Work Phone: [facility] Work Phone: [facility] Work Phone: [facility] Work Phone: [facility] Work Phone: [facility] Work Phone: [facility] Work Phone: [facility] Work Phone[facility] Work Phone[facility] Work Phone: [facility] Work Phone: [facility] Work Phone: [facility] Work Phone: [facility] Work Phone: [facility] Work Phone: [facility] Work Phone: [facility] Immunizations Immunization Date Immunization Notes Care Provider Fa cilirichard 08-24-1999 tetanus immune globulin [place] Charles APRN.[facility] Work Phone: [facility] Work Phone: Payers Date Payer Category Payer Self-pay [id number] 2020 Medicare [id number] .[id number] 2020 Private Health Insurance [id number] 2020 Medicare [id number] 2020 Unknown [id number] 2018 Unknown [id number] 2012 Private Health Insurance [id number] 2009 Unknown [id number] 2006 Unknown [id number] 2002 Unknown 1955 Unknown [id number] 1955 Unknown [id number] Unknown [facility] [id number] Unknown [id number] Unknown [id number] Unknown [id number] Unknown [id number] Unknown [id number] Unknown [id number] Unknown [id number] Unknown [id number] Social History Date Type Detail Facility Start: 04-10-2014 End: 11-21-2023 Living Situation Never smoker [facility] 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 [facility] Work Phone: Comment on above: 12/11/11 Tobacco use: Tobacco use: [facility]; [facility] Work Phone: Comment on above: 12/11/11 Start: 07-06-2021 End: 05-13-2023 Tobacco smoking status [facility] Unknown if ever smoked [facility] Start: 04-04-2020 None [facility] Start: 04-05-2020 Spouse/ Signif icant Other [facility] Start: 04-12-2021 Non-smoker [facility] Start: 1955 Sex Assigned At Female W [facility] Start: 04-10-2014 End: 02-05-2025 Tobacco smoking status NHIS Ex-smoker [facility] Work Phone: Start: 09-24-1981 End: 09-24-1984 History of tobacco use Current smoker [facility] Work Phone: Start: 09-24-1981 End: 09-24-1984 History of tobacco use Cigarette Smoker [facility] Work Phone: Start: 04-10-2014 End: 02-05-2025 Tobacco use and exposure Smokeless tobacco non-user [facility] Work Phone: Start: 08-24-2021 End: 02-05-2025 Alcohol intake Current non-drinker of alcohol (finding) [facility] Start: 1955 Sex Assigned At Not on file [facility] Start: 08-24-2021 End: 11-21-2023 Tobacco use panel [facility] Work Phone: National Score (1-100), lower number is lower risk 63 [facility] Start: 01-09-2024 End: 09-21-2024 Tobacco smoking status Never smoked tobacco (finding) [facility] Sex Assigned At Sex [facility] Start: 12-05-2024 End: 01-12-2025 Sex Female (finding) [facility] Functional Status Date Assessment Result Facility 02-25-2015 Are you deaf, or do you have serious difficulty hearing No 02/25/2015 4:34 PM EDT Vi Welch LPN No [facility] 02-25-2015 Are you blind, or do you have serious difficulty seeing, even when wearing glasses No 02/25/2015 4:34 PM EDVi Orlando LPN No [facility] 02-25-2015 Do you have serious difficulty walking or climbing stairs No 02/25/2015 4:34 PM Vi Mcdaniel LPN No [facility] 02-25-2015 Do you have difficul ty dressing or bathing No 02/25/2015 4:34 PM Vi Mcdaniel LPN No [facility] 02-25-2015 Because of a physica l, mental, or emotional condition, do you have difficulty doing errands alone such as visiting a physician's office or shopping No 02/25/2015 4:34 PM Vi Orlando LPN No [facility] Mental Status Date Assessment Result Facility 09-21-2024 Cognitive function Level Of Cons ciousness Awake;Alert;Appropriate;Fol lows Commands [facility] Work Phone: 02-25-2015 Because of a physica l, mental, or emotional condition, do you have serious difficulty concentrating, remembering, or making decisions No 02/25/2015 4:34 PM Vi Mcdaniel LPN No [facility] Clinical Notes 09-06-2005 to 02-05-2025 Joseph Caceres OD - 02/05/2025 11:02 AM Joseph Li OD - 08/08/2024 1:14 PM Joe Posadas MD - 04/15/2024 11:06 AM EDTPatient InstructionsPatient InstructionsPatient Instructions Note Date & Type Note Facility 02-05-2025 Note HNO ID: [id number] Author: JOSEPH CACERES OD Service: ? Author Type: NURSE TECHNICIAN Type: Progress Notes Filed: 02/05/2025 11:03 Note [...] to vision, otherwise follow up yearly. Joseph Caceres OD February 05, 2025 11:03 AM [facility] 02-05-2025 History of Presen t illness Narrative ASSESSMENT/PLAN: 1. Dry eye syndrome of bilateral [...] to vision, otherwise follow up yearly. Joseph Caceres OD February 05, 2025 11:03 AM documented in this encounter [facility] 01-07-2025 Radiology Diagnostic study note [facility] Imaging Services [address] [place] [address] Lumbar Spine 2 or 3 Views MR#: [id number] Acct: [id number] Name: SARAH CHÁVEZ Rep #: [id number] : 1955 F 69 From: Pradip Pratt MD PCP: Dr. Alex Ovalles MD Status: REG C LI Study:Lumbar Spine 2 or 3 Views Date of Exam: 01/06/25 Exam# [id number] Ordering Dr: Padmini Drummond PROCEDURE: LUMBAR SPINE 2 OR 3 VIEWS 01/06/2025 REASON FOR EXAM: LUMBAR DEGENERATIVE DISC DISEASE TECHNIQUE: 3 view(s) of the lumbar spine, AP, lateral and coned-down L5-S1 view COMPARISON: None available FINDINGS: 5 [id number] lumbar vertebral body types. No fracture. Moderate appearing disc space narrowing L1-2. Severe appearing disc space narrowing with degenerative endplate changes and small anterior corner osteophyte formation L2-3. Minimal retrolisthesis L2 on L3 and suggestion of mild right lateral positioningof L2 on L3 on the AP view. Mild disc space narrowing L4-5. Aortic atherosclerotic calcifications. RAD/Lumbar Spine 2 or 3 Views IMPRESSION: Multilevel spondylosis/discogenic change as above appears greatest at L2-3. Reading Location: [id number] CC: Padmini Drummond; Dr. Alex Ovalles MD ~ Structural Rigger: Signed [facility] 08-08-2024 Note HNO ID: [id number] Author: JOSEPH CACERES, PHILLIP Service: ? Author Type: NURSE TECHNICIAN Type: Progress Notes Filed: 08/08/2024 13:17 Note [...] dilated fundus exam and cornea check. Joseph Caceres, OD August 08, 2024 1:16 PM [facility] 08-08-2024 History of Presen t illness Narrative ASSESSMENT/PLAN: 1. Herpes simplex dendritic keratitis - [...] dilated fundus exam and cornea check. Joseph Caceres, OD August 08, 2024 1:16 PM documented in this encounter [facility] 04-15-2024 Note HNO ID: [id number] Author: JOE SIDDIQI MD Service: ? Author Type: Physician Type: Progress Notes Filed: 04/15/2024 11:07 Note Text: ASSESSMENT/PLAN: 1. 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 Continue: Genteal Gel solution instill 1 drop 4 times a day Left Eye. Genteal Gel ointment at bedtime Left Eye. Return in 5 months. I have confirmed and edited as necessary the relevant HPI, ophthalmic history, ROS, and the neuro exam findings as obtained by others. I have seen and examined Sarah Chávez. I have discussed the case and the management of this patient's care with the Resident/Fellow, if applicable. I also have reviewed and agree with the assessment and plan as stated above and agree with all of its relevant components. Joe Siddiqi MD. [facility] 04-15-2024 History of Presen t illness Narrative ASSESSMENT/PLAN: 1. 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 Continue: Genteal Gel solution instill 1 drop 4 times a day Left Eye. Genteal Gel ointment at bedtime Left Eye. Return in 5 months. I have confirmed and edited as necessary the relevant HPI, ophthalmic history, ROS, and the neuro exam findings as obtained by others. I have seen and examined Sarah Chávez. I have discussed the case and the management of this patient's care with the Resident/Fellow, if applicable. I also have reviewed and agree with the assessment and plan as stated above and agree with all of its relevant components. Joe Siddiqi MD. documented in this encounter [facility] 04-15-2024 Instructions Joe Siddiqi MD - 04/15/2024 11:05 AM EDT Current Ophthalmic Meds valACYclovir (VALTREX) 500 mg tablet Take 1 tablet by mouth once daily. Continue: Genteal Gel solution instill 1 drop 4 times a day Left Eye. Genteal Gel ointment at bedtime Left Eye. If you have any questions please contact our office at [phone]. After office hours or on the weekend, please call Dr. Siddiqi on his cell phone at [phone]. documented in this encounter [facility] 01-09-2024 Instructions Joe Siddiqi MD - 01/09/2024 11:00 AM EDT Current Ophthalmic Meds valACYclovir (VALTREX) 500 mg tablet Take 1 tablet by mouth once daily. Continue: Genteal Gel solution instill 1 drop 4 times a day Left Eye. Genteal Gel ointment at bedtime Left Eye. Tyrvaya twice daily. If you have any questions please contact our office at [phone]. After office hours or on the weekend, please call Dr. Siddiqi on his cell phone at [phone]. documented in this encounter [facility] 01-09-2024 History of Presen t illness Narrative ASSESSMENT/PLAN: 1. 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 Continue: Genteal Gel solution instill 1 drop 4 times a day Left Eye. Genteal Gel ointment at bedtime Left Eye. Tyrvaya twice daily. I have confirmed and edited as necessary the relevant HPI, ophthalmic history, ROS, and the neuro exam findings as obtained by others. I have seen and examined Sarah Chávez. I have discussed the case and the management of this patient's care with the Resident/Fellow, if applicable. I also have reviewed and agree with the assessment and plan as stated above and agree with all of its relevant components. documented in this encounter [facility] 12-12-2023 Instructions Joe Siddiqi MD - 12/12/2023 11:58 AM EDT Continue Genteal Gel solution instill 1 drop 4 times a day Left Eye. Genteal Gel ointment at bedtime Left Eye. Tyrvaya twice daily Valacyclovir 500 mg daily for 1 year If you have any questions please contact our office at [phone]. After office hours or on the weekend, please call Dr. Siddiqi on his cell phone at [phone]. documented in this encounter [facility] 12-12-2023 History of Presen t illness Narrative ASSESSMENT/PLAN: 1. 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 Patient wishes to take daily for 1 year Continue Genteal Gel solution instill 1 drop 4 times a day Left Eye. Genteal Gel ointment at bedtime Left Eye. Tyrvaya twice daily Valacyclovir 500 mg daily for 1 year I have confirmed and edited as necessary the relevant HPI, ophthalmic history, ROS, and the neuro exam findings as obtained by others. I have seen and examined Sarah Fernandez Kyler. I have discussed the case and the management of this patient's care with the Resident/Fellow, if applicable. I also have reviewed and agree with the assessment and plan as stated above and agree with all of its relevant components. documented in this encounter [facility] 12-04-2023 History of Presen t illness Narrative ASSESSMENT/PLAN: 1. 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 Continue: Genteal Gel solution instill 1 drop 4 times a day Left Eye. Genteal Gel ointment at bedtime Left Eye. Begin: Tyrvaya twice daily both nostrils- (Start once you receive it) -return in 1 week for follow up. 3. Pseudophakia - ICD9: V43.1, ICD10: Z96.1 Intraocular lens in good position monitor 4. Osteoarthritis, unspecified osteoarthritis type, unspecified site - ICD9: 715.90, ICD10: M19.90 Continue care with primary care physician I have confirmed and edited as necessary the relevant HPI, ophthalmic history, ROS, and the neuro exam findings as obtained by others. I have seen and examined Sarah Fernandez Kyler. I have discussed the case and the management of this patient's care with the Resident/Fellow, if applicable. I also have reviewed and agree with the assessment and plan as stated above and agree with all of its relevant components. documented in this encounter [facility] 12-04-2023 Instructions Joe Siddiqi MD - 12/04/2023 11:28 AM EDT Continue: Current Ophthalmic Meds valACYclovir (VALTREX) 500 mg tablet Take 1 tablet by mouth three times a day. Continue: Genteal Gel solution instill 1 drop 4 times a day Left Eye. Genteal Gel ointment at bedtime Left Eye. Begin: Tyrvaya twice daily both nostrils- (Start once you receive it) If you have any questions please contact our office at [phone]. After office hours or on the weekend, please call Dr. Siddiqi on his cell phone at [phone]. documented in this encounter [facility] 11-29-2023 Instructions Joe Siddiqi MD - 11/29/2023 4:53 PM EST Current Ophthalmic Meds valACYclovir (VALTREX) 500 mg tablet Take 1 tablet by mouth three times a day. Continue: Genteal Gel solution instill 1 drop 4 times a day Left Eye. Genteal Gel ointment at bedtime Left Eye. Start: Tyrvaya twice daily. I have confirmed and edited as necessary the relevant ophthalmic history, review of systems, surgical history, and ophthalmological examination findings as obtained by the ophthalmic technical staff. I have seen and examined Sarah Chávez. I have discussed the examination findings, diagnosis, and treatment options with Sarah Chávez and/or her family. I have also reviewed and agree with the assessment and plan as stated above and agree with all its relevant components. I gave the patient the opportunity to ask questions about the findings, diagnosis, and treatment options. documented in this encounter [facility] 11-29-2023 History of Presen t illness Narrative ASSESSMENT/PLAN: 1. 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 Continue: Genteal Gel solution instill 1 drop 4 times a day Left Eye. Genteal Gel ointment at bedtime Left Eye. Start: Tyrvaya twice daily. I have confirmed and edited as necessary the relevant HPI, ophthalmic history, ROS, and the neuro exam findings as obtained by others. I have seen and examined Sarah Chávez. I have discussed the case and the management of this patient's care with the Resident/Fellow, if applicable. I also have reviewed and agree with the assessment and plan as stated above and agree with all of its relevant components. documented in this encounter [facility] 11-21-2023 Instructions Joe Siddiqi MD - 11/21/2023 11:10 AM EST Continue: Current Ophthalmic Meds erythromycin (ROMYCIN) 5 mg/gram (0.5 %) ophthalmic ointment Use in the left eye at bedtime- DISCONTINUE valACYclovir (VALTREX) 500 mg tablet Take one tablet 4 times a day, with food atropine 1 % ophthalmic solution Use 1 Drop in the left eye once a week Genteal gel tears 4 times a day in the Left eye. Genteal tears ointment at night. If you have any questions please contact our office at [phone]. After office hours or on the weekend, please call Dr. Siddiqi on his cell phone at [phone]. documented in this encounter [facility] 11-21-2023 History of Presen t illness Narrative ASSESSMENT/PLAN: 1. 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 Use eye medications as directed: Current Ophthalmic Meds valACYclovir (VALTREX) 500 mg tablet atropine 1 % ophthalmic solution Use 1 Drop in the left eye one time a week. Atropine 1% ophthalmic solution Use 1 Drop in the left eye once a week Genteal gel tears 4 times a day in the Left eye. Genteal tears ointment at night. 3. Pseudophakia - ICD9: V43.1, ICD10: Z96.1 -Intraocular lens well centered. I have confirmed and edited as necessary the relevant HPI, ophthalmic history, ROS, and the neuro exam findings as obtained by others. I have seen and examined Sarah Chávez. I have discussed the case and the management of this patient's care with the Resident/Fellow, if applicable. I also have reviewed and agree with the assessment and plan as stated above and agree with all of its relevant components. documented in this encounter [facility] 12-17-2022 Miscellaneous Notes December 18, 2022 PID: [id number] Sarah Chávez [address] [place] [id number] Dear Ms. Chávez, We are pleased to inform you that the results of your recent breast imaging exam on 12/15/2022 are normal. Your mammogram demonstrates that you [...] report will be kept on file at [facility] as part of your permanent medical record and are available for your continuing care. Thank you for allowing us to help in meeting your health care needs. Sincerely, Dr. Decker Interpreting Radiologist [facility] (Normal over 40) documented in this encounter [facility] 12-15-2022 History of Presen t illness Narrative Radiology Service Progress Note PATIENT NAME: Sarah Chávez DATE OF SERVICE: December 15, 2022 TIME: 9:38 AM PATIENT IDENTITY VERIFICATION COMPLETED USING TWO (2) IDENTIFIERS: Name and Date of confirmed by patient verbally. FALL SCREENING: Has the patient had 2 falls in the last year or 1 fall with injury or currently using an Ambulatory Assistive Device (Walker, Cane, Wheelchair, Crutches, etc.)? No PATIENT GENDER DATA: Female. status: : No status: NO. PATIENT RELEVANT IMPLANT DATA REVIEWED: Yes RADIOLOGY DEPARTMENT: Mammography PERIPHERAL IV DATA: Not applicable SIGNED BY: RT Tete(R) December 15, 2022 9:38 AM documented in this encounter [facility] 07-14-2022 Miscellaneous Notes Requesting order for mammogram screening with [place] for annual screening. Patient will call to reschedule after she is healed from shoulder surgery. Thank you. documented in this encounter [facility] 09-06-2005 History of Past i llness Narrative Problem Noted Date Resolved Date Mixed hyperlipidemia 09/06/2005 10/23/2011 Allergic rhinitis, cause unspecified 09/06/2005 10/23/2011 Migraine, unspecified, with intractable migraine, so stated, without mention of status migrainosus 09/06/2005 10/23/2011 documented as of this encounter (statuses as of 09/25/2022) [facility] History of Past illness Narrative* Problem Noted Date Resolved Date Mixed hyperlipidemia 09/06/2005 10/23/2011 Allergic rhinitis, cause unspecified 09/06/2005 10/23/2011 Migraine, unspecified, with intractable migraine, so stated, without mention of status migrainosus 09/06/2005 10/23/2011 documented as of this encounter (statuses as of 12/19/2022) [facility] History of Past illness Narrative* Problem Noted Date Diagnosed Date Resolved Date Mixed hyperlipidemia 09/06/2005 012 Allergic rhinitis, cause unspecified 09/06/2005 10/23/2011 Migraine, unspecified, with intractable migraine, so stated, without mention of status migrainosus 09/06/2005 10/23/2011 documented as of this encounter (statuses as of 07/28/2023) [address]14-2005 History of Past illness Narrative* Problem Noted Date Diagnosed Date Resolved Date Mixed hyperlipidemia 09/06/2005 012 Allergic rhinitis, cause unspecified 09/06/2005 10/23/2011 Migraine, unspecified, with intractable migraine, so stated, without mention of status migrainosus 09/06/2005 10/23/2011 documented as of this encounter (statuses as of 11/21/2023) [address]14[address]2005 History of Past illness Narrative* Problem Noted Date Diagnosed Date Resolved Date Mixed hyperlipidemia 09/06/2005 012 Allergic rhinitis, cause unspecified 09/06/2005 10/23/2011 documented as of this encounter (statuses as of 11/29/2023) [facility] History of Past illness Narrative* Problem Noted Date Diagnosed Date Resolved Date Mixed hyperlipidemia 09/06/2005 012 Allergic rhinitis, cause unspecified 09/06/2005 10/23/2011 documented as of this encounter (statuses as of 12/04/2023) [facility] History of Past illness Narrative* Problem Noted Date Diagnosed Date Resolved Date Mixed hyperlipidemia 09/06/2005 012 Allergic rhinitis, cause unspecified 09/06/2005 10/23/2011 documented as of this encounter (statuses as of 12/12/2023) [address]2005 History of Past illness Narrative* Problem Noted Date Diagnosed Date Resolved Date Mixed hyperlipidemia 09/06/2005 012 Allergic rhinitis, cause unspecified 09/06/2005 10/23/2011 documented as of this encounter (statuses as of 01/09/2024) [facility] No data available for this section [facility] Evaluation noteNo assessment information available [facility] Work Phone: Evaluation note* Diagnosis Encounter for screening mammogram for malignant neoplasm of breast- Primary Other screening mammogram Dense breast tissue on mammogram [facility] Diagnosis Encounter for screening mammogram for malignant neoplasm of breast Other screening mammogram Dense breast tissue on mammogram [facility] 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 Pseudophakia 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 [facility] 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 Pseudophakia 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 Osteoarthritis, unspecified osteoarthritis type, unspecified site [facility] 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 Pseudophakia 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 Osteoarthritis, unspecified osteoarthritis type, unspecified site [facility] 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 [facility] 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 [facility] 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 Discharge instructions No data available for this section [facility] Instructions* Name Dates Details How to Access Health Informa tion Online using Patient Portal and [employer] Apps Indication:Nonsmoker Start:03-Mar-2021 Instruction Type:Patient Education Patient Instructions Indication:Nonsmoker Start:03-Mar-2021 Instruction Type:Provider Instructions for Treatment How to access health informa tion online Indication:BMI 21.0-21.9, adult Start:03-Nov-2019 Instruction Type:Patient Education How to access health informa tion online - Detail Indication:BMI 21.0-21.9, adult Start:03-Nov-2019 Instruction Type:Patient Education Patient Instructions Indication:Upper respiratory infection, viral Start:03-Nov-2019 Instruction Type:Provider Instructions for Treatment How to access health informa tion online Indication:Current non-smoker Start:23-Jun-2019 Instruction Type:Patient Education How to access health informa tion online - Detail Indication:Current non-smoker Start:23-Jun-2019 Instruction Type:Patient Education Patient Instructions Indication:UTI symptoms Start:23-Jun-2019 Instruction Type:Provider Instructions for Treatment How to access health informa tion online Indication:Current non-smoker Start:18-Feb-2019 Instruction Type:Patient Education How to access health informa tion online - Detail Indication:Current non-smoker Start:18-Feb-2019 Instruction Type:Patient Education Patient Instructions Indication:Current non-smoker Start:18-Feb-2019 Instruction Type:Provider Instructions for Treatment How to access health informa tion online Indication:Current non-smoker Start:26-Nov-2018 Instruction Type:Patient Education How to access health informa tion online - Detail Indication:Current non-smoker Start:26-Nov-2018 Instruction Type:Patient Education Patient Instructions Indication:Current non-smoker Start:26-Nov-2018 Instruction Type:Provider Instructions for Treatment How to access health informa tion online Indication:Current non-smoker Start:14-Jun-2018 Instruction Type:Patient Education How to access health informa tion online - Detail Indication:Current non-smoker Start:14-Jun-2018 Instruction Type:Patient Education Patient Instructions Indication:BMI 22.0-22.9, adult Start:14-Jun-2018 Instruction Type:Provider Instructions for Treatment How to access health informa tion online Indication:Current non-smoker Start:02-Jul-2017 Instruction Type:Patient Education How to access health informa tion online - Detail Indication:Current non-smoker Start:02-Jul-2017 Instruction Type:Patient Education Patient Instructions Indication:Current non-smoker Start:02-Jul-2017 Instruction Type:Provider Instructions for Treatment How to access health informa tion online Indication:Current non-smoker Start:10-Apr-2017 Instruction Type:Patient Education How to access health informa tion online - Detail Indication:Current non-smoker Start:10-Apr-2017 Instruction Type:Patient Education Patient Instructions Indication:Current non-smoker Start:10-Apr-2017 Instruction Type:Provider Instructions for Treatment Patient Instructions Indication:Insomnia Start:31-Jul-2016 Instruction Type:Provider Instructions for Treatment How to access health informa tion online Indication:UTI (urinary tract infection) Start:21-Jun-2016 Instruction Type:Patient Education How to access health informa tion online - Detail Indication:UTI (urinary tract infection) Start:21-Jun-2016 Instruction Type:Patient Education How to access health informa tion online Indication:Pharyngitis, unspecified etiology Start:08-Dec-2015 Instruction Type:Patient Education How to access health informa tion online - Detail Indication:Pharyngitis, unspecified etiology Start:08-Dec-2015 Instruction Type:Patient Education Patient Instructions Indication:Pharyngitis, unspecified etiology Start:08-Dec-2015 Instruction Type:Provider Instructions for Treatment Patient Instructions Indication:FATIGUE Start:19-Aug-2014 Instruction Type:Provider Instructions for Treatment Patient Instructions Indication:Vitamin D deficiency, unspecified Start:02-Jan-2014 Instruction Type:Provider Instructions for Treatment Patient Instructions Indication:Body aches Start:22-Oct-2013 Instruction Type:Provider Instructions for Treatment Patient Instructions Indication:Vitamin D deficiency, unspecified Start:01-May-2013 Instruction Type:Provider Instructions for Treatment Patient Instructions Indication:GENERAL SYMPTOMS; OTHER SLEEP DISTURBANCES Start:27-Jan-2013 Instruction Type:Provider Instructions for Treatment Patient Instructions Indication:GENERAL SYMPTOMS; OTHER SLEEP DISTURBANCES Start:30-Dec-2012 Instruction Type:Provider Instructions for Treatment [facility] Work Phone: Instructions* Name Dates Details How to Access Health Informa tion Online using Patient Portal and [employer] Apps Indication:Nonsmoker Start:03-Mar-2021 Instruction Type:Patient Education Patient Instructions Indication:Nonsmoker Start:03-Mar-2021 Instruction Type:Provider Instructions for Treatment How to access health informa tion online Indication:BMI 21.0-21.9, adult Start:03-Nov-2019 Instruction Type:Patient Education How to access health informa tion online - Detail Indication:BMI 21.0-21.9, adult Start:03-Nov-2019 Instruction Type:Patient Education Patient Instructions Indication:Upper respiratory infection, viral Start:03-Nov-2019 Instruction Type:Provider Instructions for Treatment How to access health informa tion online Indication:Current non-smoker Start:23-Jun-2019 Instruction Type:Patient Education How to access health informa tion online - Detail Indication:Current non-smoker Start:23-Jun-2019 Instruction Type:Patient Education Patient Instructions Indication:UTI symptoms Start:23-Jun-2019 Instruction Type:Provider Instructions for Treatment How to access health informa tion online Indication:Current non-smoker Start:18-Feb-2019 Instruction Type:Patient Education How to access health informa tion online - Detail Indication:Current non-smoker Start:18-Feb-2019 Instruction Type:Patient Education Patient Instructions Indication:Current non-smoker Start:18-Feb-2019 Instruction Type:Provider Instructions for Treatment How to access health informa tion online Indication:Current non-smoker Start:26-Nov-2018 Instruction Type:Patient Education How to access health informa tion online - Detail Indication:Current non-smoker Start:26-Nov-2018 Instruction Type:Patient Education Patient Instructions Indication:Current non-smoker Start:26-Nov-2018 Instruction Type:Provider Instructions for Treatment How to access health informa tion online Indication:Current non-smoker Start:14-Jun-2018 Instruction Type:Patient Education How to access health informa tion online - Detail Indication:Current non-smoker Start:14-Jun-2018 Instruction Type:Patient Education Patient Instructions Indication:BMI 22.0-22.9, adult Start:14-Jun-2018 Instruction Type:Provider Instructions for Treatment How to access health informa tion online Indication:Current non-smoker Start:02-Jul-2017 Instruction Type:Patient Education How to access health informa tion online - Detail Indication:Current non-smoker Start:02-Jul-2017 Instruction Type:Patient Education Patient Instructions Indication:Current non-smoker Start:02-Jul-2017 Instruction Type:Provider Instructions for Treatment How to access health informa tion online Indication:Current non-smoker Start:10-Apr-2017 Instruction Type:Patient Education How to access health informa tion online - Detail Indication:Current non-smoker Start:10-Apr-2017 Instruction Type:Patient Education Patient Instructions Indication:Current non-smoker Start:10-Apr-2017 Instruction Type:Provider Instructions for Treatment Patient Instructions Indication:Insomnia Start:31-Jul-2016 Instruction Type:Provider Instructions for Treatment How to access health informa tion online Indication:UTI (urinary tract infection) Start:21-Jun-2016 Instruction Type:Patient Education How to access health informa tion online - Detail Indication:UTI (urinary tract infection) Start:21-Jun-2016 Instruction Type:Patient Education How to access health informa tion online Indication:Pharyngitis, unspecified etiology Start:08-Dec-2015 Instruction Type:Patient Education How to access health informa tion online - Detail Indication:Pharyngitis, unspecified etiology Start:08-Dec-2015 Instruction Type:Patient Education Patient Instructions Indication:Pharyngitis, unspecified etiology Start:08-Dec-2015 Instruction Type:Provider Instructions for Treatment Patient Instructions Indication:FATIGUE Start:19-Aug-2014 Instruction Type:Provider Instructions for Treatment Patient Instructions Indication:Vitamin D deficiency, unspecified Start:02-Jan-2014 Instruction Type:Provider Instructions for Treatment Patient Instructions Indication:Body aches Start:22-Oct-2013 Instruction Type:Provider Instructions for Treatment Patient Instructions Indication:Vitamin D deficiency, unspecified Start:01-May-2013 Instruction Type:Provider Instructions for Treatment Patient Instructions Indication:GENERAL SYMPTOMS; OTHER SLEEP DISTURBANCES Start:27-Jan-2013 Instruction Type:Provider Instructions for Treatment Patient Instructions Indication:GENERAL SYMPTOMS; OTHER SLEEP DISTURBANCES Start:30-Dec-2012 Instruction Type:Provider Instructions for Treatment [facility] Work Phone: Instructions* Name Dates Details How to Access Health Informa tion Online using Patient Portal and [employer] Apps Indication:Nonsmoker Start:03-Mar-2021 Instruction Type:Patient Education Patient Instructions Indication:Nonsmoker Start:03-Mar-2021 Instruction Type:Provider Instructions for Treatment How to access health informa tion online Indication:BMI 21.0-21.9, adult Start:03-Nov-2019 Instruction Type:Patient Education How to access health informa tion online - Detail Indication:BMI 21.0-21.9, adult Start:03-Nov-2019 Instruction Type:Patient Education Patient Instructions Indication:Upper respiratory infection, viral Start:03-Nov-2019 Instruction Type:Provider Instructions for Treatment How to access health informa tion online Indication:Current non-smoker Start:23-Jun-2019 Instruction Type:Patient Education How to access health informa tion online - Detail Indication:Current non-smoker Start:23-Jun-2019 Instruction Type:Patient Education Patient Instructions Indication:UTI symptoms Start:23-Jun-2019 Instruction Type:Provider Instructions for Treatment How to access health informa tion online Indication:Current non-smoker Start:18-Feb-2019 Instruction Type:Patient Education How to access health informa tion online - Detail Indication:Current non-smoker Start:18-Feb-2019 Instruction Type:Patient Education Patient Instructions Indication:Current non-smoker Start:18-Feb-2019 Instruction Type:Provider Instructions for Treatment How to access health informa tion online Indication:Current non-smoker Start:26-Nov-2018 Instruction Type:Patient Education How to access health informa tion online - Detail Indication:Current non-smoker Start:26-Nov-2018 Instruction Type:Patient Education Patient Instructions Indication:Current non-smoker Start:26-Nov-2018 Instruction Type:Provider Instructions for Treatment How to access health informa tion online Indication:Current non-smoker Start:14-Jun-2018 Instruction Type:Patient Education How to access health informa tion online - Detail Indication:Current non-smoker Start:14-Jun-2018 Instruction Type:Patient Education Patient Instructions Indication:BMI 22.0-22.9, adult Start:14-Jun-2018 Instruction Type:Provider Instructions for Treatment How to access health informa tion online Indication:Current non-smoker Start:02-Jul-2017 Instruction Type:Patient Education How to access health informa tion online - Detail Indication:Current non-smoker Start:02-Jul-2017 Instruction Type:Patient Education Patient Instructions Indication:Current non-smoker Start:02-Jul-2017 Instruction Type:Provider Instructions for Treatment How to access health informa tion online Indication:Current non-smoker Start:10-Apr-2017 Instruction Type:Patient Education How to access health informa tion online - Detail Indication:Current non-smoker Start:10-Apr-2017 Instruction Type:Patient Education Patient Instructions Indication:Current non-smoker Start:10-Apr-2017 Instruction Type:Provider Instructions for Treatment Patient Instructions Indication:Insomnia Start:31-Jul-2016 Instruction Type:Provider Instructions for Treatment How to access health informa tion online Indication:UTI (urinary tract infection) Start:21-Jun-2016 Instruction Type:Patient Education How to access health informa tion online - Detail Indication:UTI (urinary tract infection) Start:21-Jun-2016 Instruction Type:Patient Education How to access health informa tion online Indication:Pharyngitis, unspecified etiology Start:08-Dec-2015 Instruction Type:Patient Education How to access health informa tion online - Detail Indication:Pharyngitis, unspecified etiology Start:08-Dec-2015 Instruction Type:Patient Education Patient Instructions Indication:Pharyngitis, unspecified etiology Start:08-Dec-2015 Instruction Type:Provider Instructions for Treatment Patient Instructions Indication:FATIGUE Start:19-Aug-2014 Instruction Type:Provider Instructions for Treatment Patient Instructions Indication:Vitamin D deficiency, unspecified Start:02-Jan-2014 Instruction Type:Provider Instructions for Treatment Patient Instructions Indication:Body aches Start:22-Oct-2013 Instruction Type:Provider Instructions for Treatment Patient Instructions Indication:Vitamin D deficiency, unspecified Start:01-May-2013 Instruction Type:Provider Instructions for Treatment Patient Instructions Indication:GENERAL SYMPTOMS; OTHER SLEEP DISTURBANCES Start:27-Jan-2013 Instruction Type:Provider Instructions for Treatment Patient Instructions Indication:GENERAL SYMPTOMS; OTHER SLEEP DISTURBANCES Start:30-Dec-2012 Instruction Type:Provider Instructions for Treatment [facility]; [facility] Work Phone: Instructions* Name Dates Details How to Access Health Informa tion Online using Patient Portal and [employer] Apps Indication:Nonsmoker Start:03-Mar-2021 Instruction Type:Patient Education Patient Instructions Indication:Nonsmoker Start:03-Mar-2021 Instruction Type:Provider Instructions for Treatment How to access health informa tion online Indication:BMI 21.0-21.9, adult Start:03-Nov-2019 Instruction Type:Patient Education How to access health informa tion online - Detail Indication:BMI 21.0-21.9, adult Start:03-Nov-2019 Instruction Type:Patient Education Patient Instructions Indication:Upper respiratory infection, viral Start:03-Nov-2019 Instruction Type:Provider Instructions for Treatment How to access health informa tion online Indication:Current non-smoker Start:23-Jun-2019 Instruction Type:Patient Education How to access health informa tion online - Detail Indication:Current non-smoker Start:23-Jun-2019 Instruction Type:Patient Education Patient Instructions Indication:UTI symptoms Start:23-Jun-2019 Instruction Type:Provider Instructions for Treatment How to access health informa tion online Indication:Current non-smoker Start:18-Feb-2019 Instruction Type:Patient Education How to access health informa tion online - Detail Indication:Current non-smoker Start:18-Feb-2019 Instruction Type:Patient Education Patient Instructions Indication:Current non-smoker Start:18-Feb-2019 Instruction Type:Provider Instructions for Treatment How to access health informa tion online Indication:Current non-smoker Start:26-Nov-2018 Instruction Type:Patient Education How to access health informa tion online - Detail Indication:Current non-smoker Start:26-Nov-2018 Instruction Type:Patient Education Patient Instructions Indication:Current non-smoker Start:26-Nov-2018 Instruction Type:Provider Instructions for Treatment How to access health informa tion online Indication:Current non-smoker Start:14-Jun-2018 Instruction Type:Patient Education How to access health informa tion online - Detail Indication:Current non-smoker Start:14-Jun-2018 Instruction Type:Patient Education Patient Instructions Indication:BMI 22.0-22.9, adult Start:14-Jun-2018 Instruction Type:Provider Instructions for Treatment How to access health informa tion online Indication:Current non-smoker Start:02-Jul-2017 Instruction Type:Patient Education How to access health informa tion online - Detail Indication:Current non-smoker Start:02-Jul-2017 Instruction Type:Patient Education Patient Instructions Indication:Current non-smoker Start:02-Jul-2017 Instruction Type:Provider Instructions for Treatment How to access health informa tion online Indication:Current non-smoker Start:10-Apr-2017 Instruction Type:Patient Education How to access health informa tion online - Detail Indication:Current non-smoker Start:10-Apr-2017 Instruction Type:Patient Education Patient Instructions Indication:Current non-smoker Start:10-Apr-2017 Instruction Type:Provider Instructions for Treatment Patient Instructions Indication:Insomnia Start:31-Jul-2016 Instruction Type:Provider Instructions for Treatment How to access health informa tion online Indication:UTI (urinary tract infection) Start:21-Jun-2016 Instruction Type:Patient Education How to access health informa tion online - Detail Indication:UTI (urinary tract infection) Start:21-Jun-2016 Instruction Type:Patient Education How to access health informa tion online Indication:Pharyngitis, unspecified etiology Start:08-Dec-2015 Instruction Type:Patient Education How to access health informa tion online - Detail Indication:Pharyngitis, unspecified etiology Start:08-Dec-2015 Instruction Type:Patient Education Patient Instructions Indication:Pharyngitis, unspecified etiology Start:08-Dec-2015 Instruction Type:Provider Instructions for Treatment Patient Instructions Indication:FATIGUE Start:19-Aug-2014 Instruction Type:Provider Instructions for Treatment Patient Instructions Indication:Vitamin D deficiency, unspecified Start:02-Jan-2014 Instruction Type:Provider Instructions for Treatment Patient Instructions Indication:Body aches Start:22-Oct-2013 Instruction Type:Provider Instructions for Treatment Patient Instructions Indication:Vitamin D deficiency, unspecified Start:01-May-2013 Instruction Type:Provider Instructions for Treatment Patient Instructions Indication:GENERAL SYMPTOMS; OTHER SLEEP DISTURBANCES Start:27-Jan-2013 Instruction Type:Provider Instructions for Treatment Patient Instructions Indication:GENERAL SYMPTOMS; OTHER SLEEP DISTURBANCES Start:30-Dec-2012 Instruction Type:Provider Instructions for Treatment [facility]; [facility] Work Phone: Instructions* Name Dates Details Patient Instructions Indication:Nonsmoker Start:18-Jul-2021 Instruction Type:Provider Instructions for Treatment How to Access Health Informa tion Online using Patient Portal and [employer] Apps Indication:Nonsmoker Start:18-Jul-2021 Instruction Type:Patient Education Patient Instructions Indication:Racing heart beat Start:04-Jul-2021 Instruction Type:Provider Instructions for Treatment How to Access Health Informa tion Online using Patient Portal and [employer] Apps Indication:Racing heart beat Start:04-Jul-2021 Instruction Type:Patient Education Patient Instructions Indication:Racing heart beat Start:15-Jun-2021 Instruction Type:Provider Instructions for Treatment How to Access Health Informa tion Online using Patient Portal and [employer] Apps Indication:Racing heart beat Start:15-Jun-2021 Instruction Type:Patient Education How to Access Health Informa tion Online using Patient Portal and [employer] Apps Indication:Nonsmoker Start:03-Mar-2021 Instruction Type:Patient Education Patient Instructions Indication:Nonsmoker Start:03-Mar-2021 Instruction Type:Provider Instructions for Treatment How to access health informa tion online Indication:BMI 21.0-21.9, adult Start:03-Nov-2019 Instruction Type:Patient Education How to access health informa tion online - Detail Indication:BMI 21.0-21.9, adult Start:03-Nov-2019 Instruction Type:Patient Education Patient Instructions Indication:Upper respiratory infection, viral Start:03-Nov-2019 Instruction Type:Provider Instructions for Treatment How to access health informa tion online Indication:Current non-smoker Start:23-Jun-2019 Instruction Type:Patient Education How to access health informa tion online - Detail Indication:Current non-smoker Start:23-Jun-2019 Instruction Type:Patient Education Patient Instructions Indication:UTI symptoms Start:23-Jun-2019 Instruction Type:Provider Instructions for Treatment How to access health informa tion online Indication:Current non-smoker Start:18-Feb-2019 Instruction Type:Patient Education How to access health informa tion online - Detail Indication:Current non-smoker Start:18-Feb-2019 Instruction Type:Patient Education Patient Instructions Indication:Current non-smoker Start:18-Feb-2019 Instruction Type:Provider Instructions for Treatment How to access health informa tion online Indication:Current non-smoker Start:26-Nov-2018 Instruction Type:Patient Education How to access health informa tion online - Detail Indication:Current non-smoker Start:26-Nov-2018 Instruction Type:Patient Education Patient Instructions Indication:Current non-smoker Start:26-Nov-2018 Instruction Type:Provider Instructions for Treatment How to access health informa tion online Indication:Current non-smoker Start:14-Jun-2018 Instruction Type:Patient Education How to access health informa tion online - Detail Indication:Current non-smoker Start:14-Jun-2018 Instruction Type:Patient Education Patient Instructions Indication:BMI 22.0-22.9, adult Start:14-Jun-2018 Instruction Type:Provider Instructions for Treatment How to access health informa tion online Indication:Current non-smoker Start:02-Jul-2017 Instruction Type:Patient Education How to access health informa tion online - Detail Indication:Current non-smoker Start:02-Jul-2017 Instruction Type:Patient Education Patient Instructions Indication:Current non-smoker Start:02-Jul-2017 Instruction Type:Provider Instructions for Treatment How to access health informa tion online Indication:Current non-smoker Start:10-Apr-2017 Instruction Type:Patient Education How to access health informa tion online - Detail Indication:Current non-smoker Start:10-Apr-2017 Instruction Type:Patient Education Patient Instructions Indication:Current non-smoker Start:10-Apr-2017 Instruction Type:Provider Instructions for Treatment Patient Instructions Indication:Insomnia Start:31-Jul-2016 Instruction Type:Provider Instructions for Treatment How to access health informa tion online Indication:UTI (urinary tract infection) Start:21-Jun-2016 Instruction Type:Patient Education How to access health informa tion online - Detail Indication:UTI (urinary tract infection) Start:21-Jun-2016 Instruction Type:Patient Education How to access health informa tion online Indication:Pharyngitis, unspecified etiology Start:08-Dec-2015 Instruction Type:Patient Education How to access health informa tion online - Detail Indication:Pharyngitis, unspecified etiology Start:08-Dec-2015 Instruction Type:Patient Education Patient Instructions Indication:Pharyngitis, unspecified etiology Start:08-Dec-2015 Instruction Type:Provider Instructions for Treatment Patient Instructions Indication:FATIGUE Start:19-Aug-2014 Instruction Type:Provider Instructions for Treatment Patient Instructions Indication:Vitamin D deficiency, unspecified Start:02-Jan-2014 Instruction Type:Provider Instructions for Treatment Patient Instructions Indication:Body aches Start:22-Oct-2013 Instruction Type:Provider Instructions for Treatment Patient Instructions Indication:Vitamin D deficiency, unspecified Start:01-May-2013 Instruction Type:Provider Instructions for Treatment Patient Instructions Indication:GENERAL SYMPTOMS; OTHER SLEEP DISTURBANCES Start:27-Jan-2013 Instruction Type:Provider Instructions for Treatment Patient Instructions Indication:GENERAL SYMPTOMS; OTHER SLEEP DISTURBANCES Start:30-Dec-2012 Instruction Type:Provider Instructions for Treatment [facility] Work Phone: Instructions* Name Dates Details Patient Instructions Indication:BMI 22.0-22.9, adult Start:03-Oct-2021 Instruction Type:Provider Instructions for Treatment How to Access Health Informa tion Online using Patient Portal and [employer]rd [employer] Apps Indication:BMI 22.0-22.9, adult Start:03-Oct-2021 Instruction Type:Patient Education Patient Instructions Indication:Nonsmoker Start:18-Jul-2021 Instruction Type:Provider Instructions for Treatment How to Access Health Informa tion Online using Patient Portal and [employer]rd [employer] Apps Indication:Nonsmoker Start:18-Jul-2021 Instruction Type:Patient Education Patient Instructions Indication:Racing heart beat Start:04-Jul-2021 Instruction Type:Provider Instructions for Treatment How to Access Health Informa tion Online using Patient Portal and [employer]rd [employer] Apps Indication:Racing heart beat Start:04-Jul-2021 Instruction Type:Patient Education Patient Instructions Indication:Racing heart beat Start:15-Jun-2021 Instruction Type:Provider Instructions for Treatment How to Access Health Informa tion Online using Patient Portal and [employer]rd [employer] Apps Indication:Racing heart beat Start:15-Jun-2021 Instruction Type:Patient Education How to Access Health Informa tion Online using Patient Portal and [employer]rd [employer] Apps Indication:Nonsmoker Start:03-Mar-2021 Instruction Type:Patient Education Patient Instructions Indication:Nonsmoker Start:03-Mar-2021 Instruction Type:Provider Instructions for Treatment How to access health informa tion online Indication:BMI 21.0-21.9, adult Start:03-Nov-2019 Instruction Type:Patient Education How to access health informa tion online - Detail Indication:BMI 21.0-21.9, adult Start:03-Nov-2019 Instruction Type:Patient Education Patient Instructions Indication:Upper respiratory infection, viral Start:03-Nov-2019 Instruction Type:Provider Instructions for Treatment How to access health informa tion online Indication:Current non-smoker Start:23-Jun-2019 Instruction Type:Patient Education How to access health informa tion online - Detail Indication:Current non-smoker Start:23-Jun-2019 Instruction Type:Patient Education Patient Instructions Indication:UTI symptoms Start:23-Jun-2019 Instruction Type:Provider Instructions for Treatment How to access health informa tion online Indication:Current non-smoker Start:18-Feb-2019 Instruction Type:Patient Education How to access health informa tion online - Detail Indication:Current non-smoker Start:18-Feb-2019 Instruction Type:Patient Education Patient Instructions Indication:Current non-smoker Start:18-Feb-2019 Instruction Type:Provider Instructions for Treatment How to access health informa tion online Indication:Current non-smoker Start:26-Nov-2018 Instruction Type:Patient Education How to access health informa tion online - Detail Indication:Current non-smoker Start:26-Nov-2018 Instruction Type:Patient Education Patient Instructions Indication:Current non-smoker Start:26-Nov-2018 Instruction Type:Provider Instructions for Treatment How to access health informa tion online Indication:Current non-smoker Start:14-Jun-2018 Instruction Type:Patient Education How to access health informa tion online - Detail Indication:Current non-smoker Start:14-Jun-2018 Instruction Type:Patient Education Patient Instructions Indication:BMI 22.0-22.9, adult Start:14-Jun-2018 Instruction Type:Provider Instructions for Treatment How to access health informa tion online Indication:Current non-smoker Start:02-Jul-2017 Instruction Type:Patient Education How to access health informa tion online - Detail Indication:Current non-smoker Start:02-Jul-2017 Instruction Type:Patient Education Patient Instructions Indication:Current non-smoker Start:02-Jul-2017 Instruction Type:Provider Instructions for Treatment How to access health informa tion online Indication:Current non-smoker Start:10-Apr-2017 Instruction Type:Patient Education How to access health informa tion online - Detail Indication:Current non-smoker Start:10-Apr-2017 Instruction Type:Patient Education Patient Instructions Indication:Current non-smoker Start:10-Apr-2017 Instruction Type:Provider Instructions for Treatment Patient Instructions Indication:Insomnia Start:31-Jul-2016 Instruction Type:Provider Instructions for Treatment How to access health informa tion online Indication:UTI (urinary tract infection) Start:21-Jun-2016 Instruction Type:Patient Education How to access health informa tion online - Detail Indication:UTI (urinary tract infection) Start:21-Jun-2016 Instruction Type:Patient Education How to access health informa tion online Indication:Pharyngitis, unspecified etiology Start:08-Dec-2015 Instruction Type:Patient Education How to access health informa tion online - Detail Indication:Pharyngitis, unspecified etiology Start:08-Dec-2015 Instruction Type:Patient Education Patient Instructions Indication:Pharyngitis, unspecified etiology Start:08-Dec-2015 Instruction Type:Provider Instructions for Treatment Patient Instructions Indication:FATIGUE Start:19-Aug-2014 Instruction Type:Provider Instructions for Treatment Patient Instructions Indication:Vitamin D deficiency, unspecified Start:02-Jan-2014 Instruction Type:Provider Instructions for Treatment Patient Instructions Indication:Body aches Start:22-Oct-2013 Instruction Type:Provider Instructions for Treatment Patient Instructions Indication:Vitamin D deficiency, unspecified Start:01-May-2013 Instruction Type:Provider Instructions for Treatment Patient Instructions Indication:GENERAL SYMPTOMS; OTHER SLEEP DISTURBANCES Start:27-Jan-2013 Instruction Type:Provider Instructions for Treatment Patient Instructions Indication:GENERAL SYMPTOMS; OTHER SLEEP DISTURBANCES Start:30-Dec-2012 Instruction Type:Provider Instructions for Treatment [facility] Work Phone: Instructions* Name Dates Details Patient Instructions Indication:BMI 22.0-22.9, adult Start:03-Oct-2021 Instruction Type:Provider Instructions for Treatment How to Access Health Informa tion Online using Patient Portal and [employer]rd [employer] Apps Indication:BMI 22.0-22.9, adult Start:03-Oct-2021 Instruction Type:Patient Education Patient Instructions Indication:Nonsmoker Start:18-Jul-2021 Instruction Type:Provider Instructions for Treatment How to Access Health Informa tion Online using Patient Portal and [employer]rd [employer] Apps Indication:Nonsmoker Start:18-Jul-2021 Instruction Type:Patient Education Patient Instructions Indication:Racing heart beat Start:04-Jul-2021 Instruction Type:Provider Instructions for Treatment How to Access Health Informa tion Online using Patient Portal and [employer]rd [employer] Apps Indication:Racing heart beat Start:04-Jul-2021 Instruction Type:Patient Education Patient Instructions Indication:Racing heart beat Start:15-Jun-2021 Instruction Type:Provider Instructions for Treatment How to Access Health Informa tion Online using Patient Portal and [employer]rd [employer] Apps Indication:Racing heart beat Start:15-Jun-2021 Instruction Type:Patient Education How to Access Health Informa tion Online using Patient Portal and [employer]rd [employer] Apps Indication:Nonsmoker Start:03-Mar-2021 Instruction Type:Patient Education Patient Instructions Indication:Nonsmoker Start:03-Mar-2021 Instruction Type:Provider Instructions for Treatment How to access health informa tion online Indication:BMI 21.0-21.9, adult Start:03-Nov-2019 Instruction Type:Patient Education How to access health informa tion online - Detail Indication:BMI 21.0-21.9, adult Start:03-Nov-2019 Instruction Type:Patient Education Patient Instructions Indication:Upper respiratory infection, viral Start:03-Nov-2019 Instruction Type:Provider Instructions for Treatment How to access health informa tion online Indication:Current non-smoker Start:23-Jun-2019 Instruction Type:Patient Education How to access health informa tion online - Detail Indication:Current non-smoker Start:23-Jun-2019 Instruction Type:Patient Education Patient Instructions Indication:UTI symptoms Start:23-Jun-2019 Instruction Type:Provider Instructions for Treatment How to access health informa tion online Indication:Current non-smoker Start:18-Feb-2019 Instruction Type:Patient Education How to access health informa tion online - Detail Indication:Current non-smoker Start:18-Feb-2019 Instruction Type:Patient Education Patient Instructions Indication:Current non-smoker Start:18-Feb-2019 Instruction Type:Provider Instructions for Treatment How to access health informa tion online Indication:Current non-smoker Start:26-Nov-2018 Instruction Type:Patient Education How to access health informa tion online - Detail Indication:Current non-smoker Start:26-Nov-2018 Instruction Type:Patient Education Patient Instructions Indication:Current non-smoker Start:26-Nov-2018 Instruction Type:Provider Instructions for Treatment How to access health informa tion online Indication:Current non-smoker Start:14-Jun-2018 Instruction Type:Patient Education How to access health informa tion online - Detail Indication:Current non-smoker Start:14-Jun-2018 Instruction Type:Patient Education Patient Instructions Indication:BMI 22.0-22.9, adult Start:14-Jun-2018 Instruction Type:Provider Instructions for Treatment How to access health informa tion online Indication:Current non-smoker Start:02-Jul-2017 Instruction Type:Patient Education How to access health informa tion online - Detail Indication:Current non-smoker Start:02-Jul-2017 Instruction Type:Patient Education Patient Instructions Indication:Current non-smoker Start:02-Jul-2017 Instruction Type:Provider Instructions for Treatment How to access health informa tion online Indication:Current non-smoker Start:10-Apr-2017 Instruction Type:Patient Education How to access health informa tion online - Detail Indication:Current non-smoker Start:10-Apr-2017 Instruction Type:Patient Education Patient Instructions Indication:Current non-smoker Start:10-Apr-2017 Instruction Type:Provider Instructions for Treatment Patient Instructions Indication:Insomnia Start:31-Jul-2016 Instruction Type:Provider Instructions for Treatment How to access health informa tion online Indication:UTI (urinary tract infection) Start:21-Jun-2016 Instruction Type:Patient Education How to access health informa tion online - Detail Indication:UTI (urinary tract infection) Start:21-Jun-2016 Instruction Type:Patient Education How to access health informa tion online Indication:Pharyngitis, unspecified etiology Start:08-Dec-2015 Instruction Type:Patient Education How to access health informa tion online - Detail Indication:Pharyngitis, unspecified etiology Start:08-Dec-2015 Instruction Type:Patient Education Patient Instructions Indication:Pharyngitis, unspecified etiology Start:08-Dec-2015 Instruction Type:Provider Instructions for Treatment Patient Instructions Indication:FATIGUE Start:19-Aug-2014 Instruction Type:Provider Instructions for Treatment Patient Instructions Indication:Vitamin D deficiency, unspecified Start:02-Jan-2014 Instruction Type:Provider Instructions for Treatment Patient Instructions Indication:Body aches Start:22-Oct-2013 Instruction Type:Provider Instructions for Treatment Patient Instructions Indication:Vitamin D deficiency, unspecified Start:01-May-2013 Instruction Type:Provider Instructions for Treatment Patient Instructions Indication:GENERAL SYMPTOMS; OTHER SLEEP DISTURBANCES Start:27-Jan-2013 Instruction Type:Provider Instructions for Treatment Patient Instructions Indication:GENERAL SYMPTOMS; OTHER SLEEP DISTURBANCES Start:30-Dec-2012 Instruction Type:Provider Instructions for Treatment [facility] Work Phone: Instructions* Name Dates Details Patient Instructions Indication:BMI 22.0-22.9, adult Start:03-Oct-2021 Instruction Type:Provider Instructions for Treatment How to Access Health Informa tion Online using Patient Portal and [employer]rd [employer] Apps Indication:BMI 22.0-22.9, adult Start:03-Oct-2021 Instruction Type:Patient Education Patient Instructions Indication:Nonsmoker Start:18-Jul-2021 Instruction Type:Provider Instructions for Treatment How to Access Health Informa tion Online using Patient Portal and [employer]rd [employer] Apps Indication:Nonsmoker Start:18-Jul-2021 Instruction Type:Patient Education Patient Instructions Indication:Racing heart beat Start:04-Jul-2021 Instruction Type:Provider Instructions for Treatment How to Access Health Informa tion Online using Patient Portal and [employer]rd [employer] Apps Indication:Racing heart beat Start:04-Jul-2021 Instruction Type:Patient Education Patient Instructions Indication:Racing heart beat Start:15-Jun-2021 Instruction Type:Provider Instructions for Treatment How to Access Health Informa tion Online using Patient Portal and [employer]rd [employer] Apps Indication:Racing heart beat Start:15-Jun-2021 Instruction Type:Patient Education How to Access Health Informa tion Online using Patient Portal and [employer]rd [employer] Apps Indication:Nonsmoker Start:03-Mar-2021 Instruction Type:Patient Education Patient Instructions Indication:Nonsmoker Start:03-Mar-2021 Instruction Type:Provider Instructions for Treatment How to access health informa tion online Indication:BMI 21.0-21.9, adult Start:03-Nov-2019 Instruction Type:Patient Education How to access health informa tion online - Detail Indication:BMI 21.0-21.9, adult Start:03-Nov-2019 Instruction Type:Patient Education Patient Instructions Indication:Upper respiratory infection, viral Start:03-Nov-2019 Instruction Type:Provider Instructions for Treatment How to access health informa tion online Indication:Current non-smoker Start:23-Jun-2019 Instruction Type:Patient Education How to access health informa tion online - Detail Indication:Current non-smoker Start:23-Jun-2019 Instruction Type:Patient Education Patient Instructions Indication:UTI symptoms Start:23-Jun-2019 Instruction Type:Provider Instructions for Treatment How to access health informa tion online Indication:Current non-smoker Start:18-Feb-2019 Instruction Type:Patient Education How to access health informa tion online - Detail Indication:Current non-smoker Start:18-Feb-2019 Instruction Type:Patient Education Patient Instructions Indication:Current non-smoker Start:18-Feb-2019 Instruction Type:Provider Instructions for Treatment How to access health informa tion online Indication:Current non-smoker Start:26-Nov-2018 Instruction Type:Patient Education How to access health informa tion online - Detail Indication:Current non-smoker Start:26-Nov-2018 Instruction Type:Patient Education Patient Instructions Indication:Current non-smoker Start:26-Nov-2018 Instruction Type:Provider Instructions for Treatment How to access health informa tion online Indication:Current non-smoker Start:14-Jun-2018 Instruction Type:Patient Education How to access health informa tion online - Detail Indication:Current non-smoker Start:14-Jun-2018 Instruction Type:Patient Education Patient Instructions Indication:BMI 22.0-22.9, adult Start:14-Jun-2018 Instruction Type:Provider Instructions for Treatment How to access health informa tion online Indication:Current non-smoker Start:02-Jul-2017 Instruction Type:Patient Education How to access health informa tion online - Detail Indication:Current non-smoker Start:02-Jul-2017 Instruction Type:Patient Education Patient Instructions Indication:Current non-smoker Start:02-Jul-2017 Instruction Type:Provider Instructions for Treatment How to access health informa tion online Indication:Current non-smoker Start:10-Apr-2017 Instruction Type:Patient Education How to access health informa tion online - Detail Indication:Current non-smoker Start:10-Apr-2017 Instruction Type:Patient Education Patient Instructions Indication:Current non-smoker Start:10-Apr-2017 Instruction Type:Provider Instructions for Treatment Patient Instructions Indication:Insomnia Start:31-Jul-2016 Instruction Type:Provider Instructions for Treatment How to access health informa tion online Indication:UTI (urinary tract infection) Start:21-Jun-2016 Instruction Type:Patient Education How to access health informa tion online - Detail Indication:UTI (urinary tract infection) Start:21-Jun-2016 Instruction Type:Patient Education How to access health informa tion online Indication:Pharyngitis, unspecified etiology Start:08-Dec-2015 Instruction Type:Patient Education How to access health informa tion online - Detail Indication:Pharyngitis, unspecified etiology Start:08-Dec-2015 Instruction Type:Patient Education Patient Instructions Indication:Pharyngitis, unspecified etiology Start:08-Dec-2015 Instruction Type:Provider Instructions for Treatment Patient Instructions Indication:FATIGUE Start:19-Aug-2014 Instruction Type:Provider Instructions for Treatment Patient Instructions Indication:Vitamin D deficiency, unspecified Start:02-Jan-2014 Instruction Type:Provider Instructions for Treatment Patient Instructions Indication:Body aches Start:22-Oct-2013 Instruction Type:Provider Instructions for Treatment Patient Instructions Indication:Vitamin D deficiency, unspecified Start:01-May-2013 Instruction Type:Provider Instructions for Treatment Patient Instructions Indication:GENERAL SYMPTOMS; OTHER SLEEP DISTURBANCES Start:27-Jan-2013 Instruction Type:Provider Instructions for Treatment Patient Instructions Indication:GENERAL SYMPTOMS; OTHER SLEEP DISTURBANCES Start:30-Dec-2012 Instruction Type:Provider Instructions for Treatment [facility] Work Phone: Instructions* Name Dates Details Patient Instructions Indication:BMI 21.0-21.9, adult Start:22-May-2022 Instruction Type:Provider Instructions for Treatment How to Access Health Informa tion Online using Patient Portal and [employer]rd [employer] Apps Indication:BMI 21.0-21.9, adult Start:22-May-2022 Instruction Type:Patient Education Patient Instructions Indication:BMI 22.0-22.9, adult Start:03-Oct-2021 Instruction Type:Provider Instructions for Treatment How to Access Health Informa tion Online using Patient Portal and [employer]rd [employer] Apps Indication:BMI 22.0-22.9, adult Start:03-Oct-2021 Instruction Type:Patient Education Patient Instructions Indication:Nonsmoker Start:18-Jul-2021 Instruction Type:Provider Instructions for Treatment How to Access Health Informa tion Online using Patient Portal and [employer]rd [employer] Apps Indication:Nonsmoker Start:18-Jul-2021 Instruction Type:Patient Education Patient Instructions Indication:Racing heart beat Start:04-Jul-2021 Instruction Type:Provider Instructions for Treatment How to Access Health Informa tion Online using Patient Portal and [employer]rd [employer] Apps Indication:Racing heart beat Start:04-Jul-2021 Instruction Type:Patient Education Patient Instructions Indication:Racing heart beat Start:15-Jun-2021 Instruction Type:Provider Instructions for Treatment How to Access Health Informa tion Online using Patient Portal and [employer]rd [employer] Apps Indication:Racing heart beat Start:15-Jun-2021 Instruction Type:Patient Education How to Access Health Informa tion Online using Patient Portal and [employer]rd [employer] Apps Indication:Nonsmoker Start:03-Mar-2021 Instruction Type:Patient Education Patient Instructions Indication:Nonsmoker Start:03-Mar-2021 Instruction Type:Provider Instructions for Treatment How to access health informa tion online Indication:BMI 21.0-21.9, adult Start:03-Nov-2019 Instruction Type:Patient Education How to access health informa tion online - Detail Indication:BMI 21.0-21.9, adult Start:03-Nov-2019 Instruction Type:Patient Education Patient Instructions Indication:Upper respiratory infection, viral Start:03-Nov-2019 Instruction Type:Provider Instructions for Treatment How to access health informa tion online Indication:Current non-smoker Start:23-Jun-2019 Instruction Type:Patient Education How to access health informa tion online - Detail Indication:Current non-smoker Start:23-Jun-2019 Instruction Type:Patient Education Patient Instructions Indication:UTI symptoms Start:23-Jun-2019 Instruction Type:Provider Instructions for Treatment How to access health informa tion online Indication:Current non-smoker Start:18-Feb-2019 Instruction Type:Patient Education How to access health informa tion online - Detail Indication:Current non-smoker Start:18-Feb-2019 Instruction Type:Patient Education Patient Instructions Indication:Current non-smoker Start:18-Feb-2019 Instruction Type:Provider Instructions for Treatment How to access health informa tion online Indication:Current non-smoker Start:26-Nov-2018 Instruction Type:Patient Education How to access health informa tion online - Detail Indication:Current non-smoker Start:26-Nov-2018 Instruction Type:Patient Education Patient Instructions Indication:Current non-smoker Start:26-Nov-2018 Instruction Type:Provider Instructions for Treatment How to access health informa tion online Indication:Current non-smoker Start:14-Jun-2018 Instruction Type:Patient Education How to access health informa tion online - Detail Indication:Current non-smoker Start:14-Jun-2018 Instruction Type:Patient Education Patient Instructions Indication:BMI 22.0-22.9, adult Start:14-Jun-2018 Instruction Type:Provider Instructions for Treatment How to access health informa tion online Indication:Current non-smoker Start:02-Jul-2017 Instruction Type:Patient Education How to access health informa tion online - Detail Indication:Current non-smoker Start:02-Jul-2017 Instruction Type:Patient Education Patient Instructions Indication:Current non-smoker Start:02-Jul-2017 Instruction Type:Provider Instructions for Treatment How to access health informa tion online Indication:Current non-smoker Start:10-Apr-2017 Instruction Type:Patient Education How to access health informa tion online - Detail Indication:Current non-smoker Start:10-Apr-2017 Instruction Type:Patient Education Patient Instructions Indication:Current non-smoker Start:10-Apr-2017 Instruction Type:Provider Instructions for Treatment Patient Instructions Indication:Insomnia Start:31-Jul-2016 Instruction Type:Provider Instructions for Treatment How to access health informa tion online Indication:UTI (urinary tract infection) Start:21-Jun-2016 Instruction Type:Patient Education How to access health informa tion online - Detail Indication:UTI (urinary tract infection) Start:21-Jun-2016 Instruction Type:Patient Education How to access health informa tion online Indication:Pharyngitis, unspecified etiology Start:08-Dec-2015 Instruction Type:Patient Education How to access health informa tion online - Detail Indication:Pharyngitis, unspecified etiology Start:08-Dec-2015 Instruction Type:Patient Education Patient Instructions Indication:Pharyngitis, unspecified etiology Start:08-Dec-2015 Instruction Type:Provider Instructions for Treatment Patient Instructions Indication:FATIGUE Start:19-Aug-2014 Instruction Type:Provider Instructions for Treatment Patient Instructions Indication:Vitamin D deficiency, unspecified Start:02-Jan-2014 Instruction Type:Provider Instructions for Treatment Patient Instructions Indication:Body aches Start:22-Oct-2013 Instruction Type:Provider Instructions for Treatment Patient Instructions Indication:Vitamin D deficiency, unspecified Start:01-May-2013 Instruction Type:Provider Instructions for Treatment Patient Instructions Indication:GENERAL SYMPTOMS; OTHER SLEEP DISTURBANCES Start:27-Jan-2013 Instruction Type:Provider Instructions for Treatment Patient Instructions Indication:GENERAL SYMPTOMS; OTHER SLEEP DISTURBANCES Start:30-Dec-2012 Instruction Type:Provider Instructions for Treatment [facility] Work Phone: Instructions* Name Dates Details Patient Instructions Indication:Nonsmoker Start:22-Feb-2023 Instruction Type:Provider Instructions for Treatment How to Access Health Informa tion Online using Patient Portal and [employer]rd [employer] Apps Indication:Nonsmoker Start:22-Feb-2023 Instruction Type:Patient Education Patient Instructions Indication:BMI 21.0-21.9, adult Start:22-May-2022 Instruction Type:Provider Instructions for Treatment How to Access Health Informa tion Online using Patient Portal and [employer]rd [employer] Apps Indication:BMI 21.0-21.9, adult Start:22-May-2022 Instruction Type:Patient Education Patient Instructions Indication:BMI 22.0-22.9, adult Start:03-Oct-2021 Instruction Type:Provider Instructions for Treatment How to Access Health Informa tion Online using Patient Portal and [employer]rd [employer] Apps Indication:BMI 22.0-22.9, adult Start:03-Oct-2021 Instruction Type:Patient Education Patient Instructions Indication:Nonsmoker Start:18-Jul-2021 Instruction Type:Provider Instructions for Treatment How to Access Health Informa tion Online using Patient Portal and [employer] Apps Indication:Nonsmoker Start:18-Jul-2021 Instruction Type:Patient Education Patient Instructions Indication:Racing heart beat Start:04-Jul-2021 Instruction Type:Provider Instructions for Treatment How to Access Health Informa tion Online using Patient Portal and [employer]rd [employer] Apps Indication:Racing heart beat Start:04-Jul-2021 Instruction Type:Patient Education Patient Instructions Indication:Racing heart beat Start:15-Jun-2021 Instruction Type:Provider Instructions for Treatment How to Access Health Informa tion Online using Patient Portal and [employer]rd [employer] Apps Indication:Racing heart beat Start:15-Jun-2021 Instruction Type:Patient Education How to Access Health Informa tion Online using Patient Portal and [employer]rd [employer] Apps Indication:Nonsmoker Start:03-Mar-2021 Instruction Type:Patient Education Patient Instructions Indication:Nonsmoker Start:03-Mar-2021 Instruction Type:Provider Instructions for Treatment How to access health informa tion online Indication:BMI 21.0-21.9, adult Start:03-Nov-2019 Instruction Type:Patient Education How to access health informa tion online - Detail Indication:BMI 21.0-21.9, adult Start:03-Nov-2019 Instruction Type:Patient Education Patient Instructions Indication:Upper respiratory infection, viral Start:03-Nov-2019 Instruction Type:Provider Instructions for Treatment How to access health informa tion online Indication:Current non-smoker Start:23-Jun-2019 Instruction Type:Patient Education How to access health informa tion online - Detail Indication:Current non-smoker Start:23-Jun-2019 Instruction Type:Patient Education Patient Instructions Indication:UTI symptoms Start:23-Jun-2019 Instruction Type:Provider Instructions for Treatment How to access health informa tion online Indication:Current non-smoker Start:18-Feb-2019 Instruction Type:Patient Education How to access health informa tion online - Detail Indication:Current non-smoker Start:18-Feb-2019 Instruction Type:Patient Education Patient Instructions Indication:Current non-smoker Start:18-Feb-2019 Instruction Type:Provider Instructions for Treatment How to access health informa tion online Indication:Current non-smoker Start:26-Nov-2018 Instruction Type:Patient Education How to access health informa tion online - Detail Indication:Current non-smoker Start:26-Nov-2018 Instruction Type:Patient Education Patient Instructions Indication:Current non-smoker Start:26-Nov-2018 Instruction Type:Provider Instructions for Treatment How to access health informa tion online Indication:Current non-smoker Start:14-Jun-2018 Instruction Type:Patient Education How to access health informa tion online - Detail Indication:Current non-smoker Start:14-Jun-2018 Instruction Type:Patient Education Patient Instructions Indication:BMI 22.0-22.9, adult Start:14-Jun-2018 Instruction Type:Provider Instructions for Treatment How to access health informa tion online Indication:Current non-smoker Start:02-Jul-2017 Instruction Type:Patient Education How to access health informa tion online - Detail Indication:Current non-smoker Start:02-Jul-2017 Instruction Type:Patient Education Patient Instructions Indication:Current non-smoker Start:02-Jul-2017 Instruction Type:Provider Instructions for Treatment How to access health informa tion online Indication:Current non-smoker Start:10-Apr-2017 Instruction Type:Patient Education How to access health informa tion online - Detail Indication:Current non-smoker Start:10-Apr-2017 Instruction Type:Patient Education Patient Instructions Indication:Current non-smoker Start:10-Apr-2017 Instruction Type:Provider Instructions for Treatment Patient Instructions Indication:Insomnia Start:31-Jul-2016 Instruction Type:Provider Instructions for Treatment How to access health informa tion online Indication:UTI (urinary tract infection) Start:21-Jun-2016 Instruction Type:Patient Education How to access health informa tion online - Detail Indication:UTI (urinary tract infection) Start:21-Jun-2016 Instruction Type:Patient Education How to access health informa tion online Indication:Pharyngitis, unspecified etiology Start:08-Dec-2015 Instruction Type:Patient Education How to access health informa tion online - Detail Indication:Pharyngitis, unspecified etiology Start:08-Dec-2015 Instruction Type:Patient Education Patient Instructions Indication:Pharyngitis, unspecified etiology Start:08-Dec-2015 Instruction Type:Provider Instructions for Treatment Patient Instructions Indication:FATIGUE Start:19-Aug-2014 Instruction Type:Provider Instructions for Treatment Patient Instructions Indication:Vitamin D deficiency, unspecified Start:02-Jan-2014 Instruction Type:Provider Instructions for Treatment Patient Instructions Indication:Body aches Start:22-Oct-2013 Instruction Type:Provider Instructions for Treatment Patient Instructions Indication:Vitamin D deficiency, unspecified Start:01-May-2013 Instruction Type:Provider Instructions for Treatment Patient Instructions Indication:GENERAL SYMPTOMS; OTHER SLEEP DISTURBANCES Start:27-Jan-2013 Instruction Type:Provider Instructions for Treatment Patient Instructions Indication:GENERAL SYMPTOMS; OTHER SLEEP DISTURBANCES Start:30-Dec-2012 Instruction Type:Provider Instructions for Treatment [facility] Work Phone: Instructions* Name Dates Details Patient Instructions Indication:Nonsmoker Start:22-Feb-2023 Instruction Type:Provider Instructions for Treatment How to Access Health Informa tion Online using Patient Portal and [employer]rd [employer] Apps Indication:Nonsmoker Start:22-Feb-2023 Instruction Type:Patient Education Patient Instructions Indication:BMI 21.0-21.9, adult Start:22-May-2022 Instruction Type:Provider Instructions for Treatment How to Access Health Informa tion Online using Patient Portal and [employer] Apps Indication:BMI 21.0-21.9, adult Start:22-May-2022 Instruction Type:Patient Education Patient Instructions Indication:BMI 22.0-22.9, adult Start:03-Oct-2021 Instruction Type:Provider Instructions for Treatment How to Access Health Informa tion Online using Patient Portal and [employer] Apps Indication:BMI 22.0-22.9, adult Start:03-Oct-2021 Instruction Type:Patient Education Patient Instructions Indication:Nonsmoker Start:18-Jul-2021 Instruction Type:Provider Instructions for Treatment How to Access Health Informa tion Online using Patient Portal and [employer] Apps Indication:Nonsmoker Start:18-Jul-2021 Instruction Type:Patient Education Patient Instructions Indication:Racing heart beat Start:04-Jul-2021 Instruction Type:Provider Instructions for Treatment How to Access Health Informa tion Online using Patient Portal and [employer] Apps Indication:Racing heart beat Start:04-Jul-2021 Instruction Type:Patient Education Patient Instructions Indication:Racing heart beat Start:15-Jun-2021 Instruction Type:Provider Instructions for Treatment How to Access Health Informa tion Online using Patient Portal and [employer] Apps Indication:Racing heart beat Start:15-Jun-2021 Instruction Type:Patient Education How to Access Health Informa tion Online using Patient Portal and [employer] Apps Indication:Nonsmoker Start:03-Mar-2021 Instruction Type:Patient Education Patient Instructions Indication:Nonsmoker Start:03-Mar-2021 Instruction Type:Provider Instructions for Treatment How to access health informa tion online Indication:BMI 21.0-21.9, adult Start:03-Nov-2019 Instruction Type:Patient Education How to access health informa tion online - Detail Indication:BMI 21.0-21.9, adult Start:03-Nov-2019 Instruction Type:Patient Education Patient Instructions Indication:Upper respiratory infection, viral Start:03-Nov-2019 Instruction Type:Provider Instructions for Treatment How to access health informa tion online Indication:Current non-smoker Start:23-Jun-2019 Instruction Type:Patient Education How to access health informa tion online - Detail Indication:Current non-smoker Start:23-Jun-2019 Instruction Type:Patient Education Patient Instructions Indication:UTI symptoms Start:23-Jun-2019 Instruction Type:Provider Instructions for Treatment How to access health informa tion online Indication:Current non-smoker Start:18-Feb-2019 Instruction Type:Patient Education How to access health informa tion online - Detail Indication:Current non-smoker Start:18-Feb-2019 Instruction Type:Patient Education Patient Instructions Indication:Current non-smoker Start:18-Feb-2019 Instruction Type:Provider Instructions for Treatment How to access health informa tion online Indication:Current non-smoker Start:26-Nov-2018 Instruction Type:Patient Education How to access health informa tion online - Detail Indication:Current non-smoker Start:26-Nov-2018 Instruction Type:Patient Education Patient Instructions Indication:Current non-smoker Start:26-Nov-2018 Instruction Type:Provider Instructions for Treatment How to access health informa tion online Indication:Current non-smoker Start:14-Jun-2018 Instruction Type:Patient Education How to access health informa tion online - Detail Indication:Current non-smoker Start:14-Jun-2018 Instruction Type:Patient Education Patient Instructions Indication:BMI 22.0-22.9, adult Start:14-Jun-2018 Instruction Type:Provider Instructions for Treatment How to access health informa tion online Indication:Current non-smoker Start:02-Jul-2017 Instruction Type:Patient Education How to access health informa tion online - Detail Indication:Current non-smoker Start:02-Jul-2017 Instruction Type:Patient Education Patient Instructions Indication:Current non-smoker Start:02-Jul-2017 Instruction Type:Provider Instructions for Treatment How to access health informa tion online Indication:Current non-smoker Start:10-Apr-2017 Instruction Type:Patient Education How to access health informa tion online - Detail Indication:Current non-smoker Start:10-Apr-2017 Instruction Type:Patient Education Patient Instructions Indication:Current non-smoker Start:10-Apr-2017 Instruction Type:Provider Instructions for Treatment Patient Instructions Indication:Insomnia Start:31-Jul-2016 Instruction Type:Provider Instructions for Treatment How to access health informa tion online Indication:UTI (urinary tract infection) Start:21-Jun-2016 Instruction Type:Patient Education How to access health informa tion online - Detail Indication:UTI (urinary tract infection) Start:21-Jun-2016 Instruction Type:Patient Education How to access health informa tion online Indication:Pharyngitis, unspecified etiology Start:08-Dec-2015 Instruction Type:Patient Education How to access health informa tion online - Detail Indication:Pharyngitis, unspecified etiology Start:08-Dec-2015 Instruction Type:Patient Education Patient Instructions Indication:Pharyngitis, unspecified etiology Start:08-Dec-2015 Instruction Type:Provider Instructions for Treatment Patient Instructions Indication:FATIGUE Start:19-Aug-2014 Instruction Type:Provider Instructions for Treatment Patient Instructions Indication:Vitamin D deficiency, unspecified Start:02-Jan-2014 Instruction Type:Provider Instructions for Treatment Patient Instructions Indication:Body aches Start:22-Oct-2013 Instruction Type:Provider Instructions for Treatment Patient Instructions Indication:Vitamin D deficiency, unspecified Start:01-May-2013 Instruction Type:Provider Instructions for Treatment Patient Instructions Indication:GENERAL SYMPTOMS; OTHER SLEEP DISTURBANCES Start:27-Jan-2013 Instruction Type:Provider Instructions for Treatment Patient Instructions Indication:GENERAL SYMPTOMS; OTHER SLEEP DISTURBANCES Start:30-Dec-2012 Instruction Type:Provider Instructions for Treatment [facility] Work Phone: Instructions* Name Dates Details Patient Instructions Indication:Nonsmoker Start:22-Feb-2023 Instruction Type:Provider Instructions for Treatment How to Access Health Informa tion Online using Patient Portal and [employer] Apps Indication:Nonsmoker Start:22-Feb-2023 Instruction Type:Patient Education Patient Instructions Indication:BMI 21.0-21.9, adult Start:22-May-2022 Instruction Type:Provider Instructions for Treatment How to Access Health Informa tion Online using Patient Portal and [employer] Apps Indication:BMI 21.0-21.9, adult Start:22-May-2022 Instruction Type:Patient Education Patient Instructions Indication:BMI 22.0-22.9, adult Start:03-Oct-2021 Instruction Type:Provider Instructions for Treatment How to Access Health Informa tion Online using Patient Portal and [employer] Apps Indication:BMI 22.0-22.9, adult Start:03-Oct-2021 Instruction Type:Patient Education Patient Instructions Indication:Nonsmoker Start:18-Jul-2021 Instruction Type:Provider Instructions for Treatment How to Access Health Informa tion Online using Patient Portal and [employer] Apps Indication:Nonsmoker Start:18-Jul-2021 Instruction Type:Patient Education Patient Instructions Indication:Racing heart beat Start:04-Jul-2021 Instruction Type:Provider Instructions for Treatment How to Access Health Informa tion Online using Patient Portal and [employer] Apps Indication:Racing heart beat Start:04-Jul-2021 Instruction Type:Patient Education Patient Instructions Indication:Racing heart beat Start:15-Jun-2021 Instruction Type:Provider Instructions for Treatment How to Access Health Informa tion Online using Patient Portal and [employer] Apps Indication:Racing heart beat Start:15-Jun-2021 Instruction Type:Patient Education How to Access Health Informa tion Online using Patient Portal and [employer] Apps Indication:Nonsmoker Start:03-Mar-2021 Instruction Type:Patient Education Patient Instructions Indication:Nonsmoker Start:03-Mar-2021 Instruction Type:Provider Instructions for Treatment How to access health informa tion online Indication:BMI 21.0-21.9, adult Start:03-Nov-2019 Instruction Type:Patient Education How to access health informa tion online - Detail Indication:BMI 21.0-21.9, adult Start:03-Nov-2019 Instruction Type:Patient Education Patient Instructions Indication:Upper respiratory infection, viral Start:03-Nov-2019 Instruction Type:Provider Instructions for Treatment How to access health informa tion online Indication:Current non-smoker Start:23-Jun-2019 Instruction Type:Patient Education How to access health informa tion online - Detail Indication:Current non-smoker Start:23-Jun-2019 Instruction Type:Patient Education Patient Instructions Indication:UTI symptoms Start:23-Jun-2019 Instruction Type:Provider Instructions for Treatment How to access health informa tion online Indication:Current non-smoker Start:18-Feb-2019 Instruction Type:Patient Education How to access health informa tion online - Detail Indication:Current non-smoker Start:18-Feb-2019 Instruction Type:Patient Education Patient Instructions Indication:Current non-smoker Start:18-Feb-2019 Instruction Type:Provider Instructions for Treatment How to access health informa tion online Indication:Current non-smoker Start:26-Nov-2018 Instruction Type:Patient Education How to access health informa tion online - Detail Indication:Current non-smoker Start:26-Nov-2018 Instruction Type:Patient Education Patient Instructions Indication:Current non-smoker Start:26-Nov-2018 Instruction Type:Provider Instructions for Treatment How to access health informa tion online Indication:Current non-smoker Start:14-Jun-2018 Instruction Type:Patient Education How to access health informa tion online - Detail Indication:Current non-smoker Start:14-Jun-2018 Instruction Type:Patient Education Patient Instructions Indication:BMI 22.0-22.9, adult Start:14-Jun-2018 Instruction Type:Provider Instructions for Treatment How to access health informa tion online Indication:Current non-smoker Start:02-Jul-2017 Instruction Type:Patient Education How to access health informa tion online - Detail Indication:Current non-smoker Start:02-Jul-2017 Instruction Type:Patient Education Patient Instructions Indication:Current non-smoker Start:02-Jul-2017 Instruction Type:Provider Instructions for Treatment How to access health informa tion online Indication:Current non-smoker Start:10-Apr-2017 Instruction Type:Patient Education How to access health informa tion online - Detail Indication:Current non-smoker Start:10-Apr-2017 Instruction Type:Patient Education Patient Instructions Indication:Current non-smoker Start:10-Apr-2017 Instruction Type:Provider Instructions for Treatment Patient Instructions Indication:Insomnia Start:31-Jul-2016 Instruction Type:Provider Instructions for Treatment How to access health informa tion online Indication:UTI (urinary tract infection) Start:21-Jun-2016 Instruction Type:Patient Education How to access health informa tion online - Detail Indication:UTI (urinary tract infection) Start:21-Jun-2016 Instruction Type:Patient Education How to access health informa tion online Indication:Pharyngitis, unspecified etiology Start:08-Dec-2015 Instruction Type:Patient Education How to access health informa tion online - Detail Indication:Pharyngitis, unspecified etiology Start:08-Dec-2015 Instruction Type:Patient Education Patient Instructions Indication:Pharyngitis, unspecified etiology Start:08-Dec-2015 Instruction Type:Provider Instructions for Treatment Patient Instructions Indication:FATIGUE Start:19-Aug-2014 Instruction Type:Provider Instructions for Treatment Patient Instructions Indication:Vitamin D deficiency, unspecified Start:02-Jan-2014 Instruction Type:Provider Instructions for Treatment Patient Instructions Indication:Body aches Start:22-Oct-2013 Instruction Type:Provider Instructions for Treatment Patient Instructions Indication:Vitamin D deficiency, unspecified Start:01-May-2013 Instruction Type:Provider Instructions for Treatment Patient Instructions Indication:GENERAL SYMPTOMS; OTHER SLEEP DISTURBANCES Start:27-Jan-2013 Instruction Type:Provider Instructions for Treatment Patient Instructions Indication:GENERAL SYMPTOMS; OTHER SLEEP DISTURBANCES Start:30-Dec-2012 Instruction Type:Provider Instructions for Treatment [facility] Work Phone: Instructions* Name Dates Details Patient Instructions Indication:Nonsmoker Start:22-Feb-2023 Instruction Type:Provider Instructions for Treatment How to Access Health Informa tion Online using Patient Portal and [employer] Apps Indication:Nonsmoker Start:22-Feb-2023 Instruction Type:Patient Education Patient Instructions Indication:BMI 21.0-21.9, adult Start:22-May-2022 Instruction Type:Provider Instructions for Treatment How to Access Health Informa tion Online using Patient Portal and [employer] Apps Indication:BMI 21.0-21.9, adult Start:22-May-2022 Instruction Type:Patient Education Patient Instructions Indication:BMI 22.0-22.9, adult Start:03-Oct-2021 Instruction Type:Provider Instructions for Treatment How to Access Health Informa tion Online using Patient Portal and [employer] Apps Indication:BMI 22.0-22.9, adult Start:03-Oct-2021 Instruction Type:Patient Education Patient Instructions Indication:Nonsmoker Start:18-Jul-2021 Instruction Type:Provider Instructions for Treatment How to Access Health Informa tion Online using Patient Portal and [employer] Apps Indication:Nonsmoker Start:18-Jul-2021 Instruction Type:Patient Education Patient Instructions Indication:Racing heart beat Start:04-Jul-2021 Instruction Type:Provider Instructions for Treatment How to Access Health Informa tion Online using Patient Portal and [employer] Apps Indication:Racing heart beat Start:04-Jul-2021 Instruction Type:Patient Education Patient Instructions Indication:Racing heart beat Start:15-Jun-2021 Instruction Type:Provider Instructions for Treatment How to Access Health Informa tion Online using Patient Portal and [employer] Apps Indication:Racing heart beat Start:15-Jun-2021 Instruction Type:Patient Education How to Access Health Informa tion Online using Patient Portal and [employer] Apps Indication:Nonsmoker Start:03-Mar-2021 Instruction Type:Patient Education Patient Instructions Indication:Nonsmoker Start:03-Mar-2021 Instruction Type:Provider Instructions for Treatment How to access health informa tion online Indication:BMI 21.0-21.9, adult Start:03-Nov-2019 Instruction Type:Patient Education How to access health informa tion online - Detail Indication:BMI 21.0-21.9, adult Start:03-Nov-2019 Instruction Type:Patient Education Patient Instructions Indication:Upper respiratory infection, viral Start:03-Nov-2019 Instruction Type:Provider Instructions for Treatment How to access health informa tion online Indication:Current non-smoker Start:23-Jun-2019 Instruction Type:Patient Education How to access health informa tion online - Detail Indication:Current non-smoker Start:23-Jun-2019 Instruction Type:Patient Education Patient Instructions Indication:UTI symptoms Start:23-Jun-2019 Instruction Type:Provider Instructions for Treatment How to access health informa tion online Indication:Current non-smoker Start:18-Feb-2019 Instruction Type:Patient Education How to access health informa tion online - Detail Indication:Current non-smoker Start:18-Feb-2019 Instruction Type:Patient Education Patient Instructions Indication:Current non-smoker Start:18-Feb-2019 Instruction Type:Provider Instructions for Treatment How to access health informa tion online Indication:Current non-smoker Start:26-Nov-2018 Instruction Type:Patient Education How to access health informa tion online - Detail Indication:Current non-smoker Start:26-Nov-2018 Instruction Type:Patient Education Patient Instructions Indication:Current non-smoker Start:26-Nov-2018 Instruction Type:Provider Instructions for Treatment How to access health informa tion online Indication:Current non-smoker Start:14-Jun-2018 Instruction Type:Patient Education How to access health informa tion online - Detail Indication:Current non-smoker Start:14-Jun-2018 Instruction Type:Patient Education Patient Instructions Indication:BMI 22.0-22.9, adult Start:14-Jun-2018 Instruction Type:Provider Instructions for Treatment How to access health informa tion online Indication:Current non-smoker Start:02-Jul-2017 Instruction Type:Patient Education How to access health informa tion online - Detail Indication:Current non-smoker Start:02-Jul-2017 Instruction Type:Patient Education Patient Instructions Indication:Current non-smoker Start:02-Jul-2017 Instruction Type:Provider Instructions for Treatment How to access health informa tion online Indication:Current non-smoker Start:10-Apr-2017 Instruction Type:Patient Education How to access health informa tion online - Detail Indication:Current non-smoker Start:10-Apr-2017 Instruction Type:Patient Education Patient Instructions Indication:Current non-smoker Start:10-Apr-2017 Instruction Type:Provider Instructions for Treatment Patient Instructions Indication:Insomnia Start:31-Jul-2016 Instruction Type:Provider Instructions for Treatment How to access health informa tion online Indication:UTI (urinary tract infection) Start:21-Jun-2016 Instruction Type:Patient Education How to access health informa tion online - Detail Indication:UTI (urinary tract infection) Start:21-Jun-2016 Instruction Type:Patient Education How to access health informa tion online Indication:Pharyngitis, unspecified etiology Start:08-Dec-2015 Instruction Type:Patient Education How to access health informa tion online - Detail Indication:Pharyngitis, unspecified etiology Start:08-Dec-2015 Instruction Type:Patient Education Patient Instructions Indication:Pharyngitis, unspecified etiology Start:08-Dec-2015 Instruction Type:Provider Instructions for Treatment Patient Instructions Indication:FATIGUE Start:19-Aug-2014 Instruction Type:Provider Instructions for Treatment Patient Instructions Indication:Vitamin D deficiency, unspecified Start:02-Jan-2014 Instruction Type:Provider Instructions for Treatment Patient Instructions Indication:Body aches Start:22-Oct-2013 Instruction Type:Provider Instructions for Treatment Patient Instructions Indication:Vitamin D deficiency, unspecified Start:01-May-2013 Instruction Type:Provider Instructions for Treatment Patient Instructions Indication:GENERAL SYMPTOMS; OTHER SLEEP DISTURBANCES Start:27-Jan-2013 Instruction Type:Provider Instructions for Treatment Patient Instructions Indication:GENERAL SYMPTOMS; OTHER SLEEP DISTURBANCES Start:30-Dec-2012 Instruction Type:Provider Instructions for Treatment [facility] Work Phone: progress note No data available for this section [facility] Reason for referral (narrative)* Diagnostic Procedure Only (Routine) - Pending Review Specialty Diagnoses / Procedures Referred By Mathieu ambrosio Referred To Contact [facility] Diagnoses Encounter for screening mammogram for malignant neoplasm of breast Dense breast tissue on mammogram Procedures BRANDON SCREENING [place] SCREENING DIGITAL BREAST TOMOSYNTHESIS BI SCREENING MAMMOGRAPHY BI 2-VIEW BREAST INC [place] Willams, FORREST.MONICA [address] [place] [place] [address] [facility] [address] [place] [address] Referral ID Status Reason Start Date Expiration Date Visits Requested Visits Authorized [id number] Pending Review Auto-Generat ed Referral 08/13/2023 [address] [facility] for referral (narrative)* Diagnostic Procedure Only (Routine) - Closed Specialty Diagnoses / Procedures Referred By Mathieu t Referred To Contact [facility] Diagnoses Encounter for screening mammogram for malignant neoplasm of breast Dense breast tissue on mammogram Procedures BRANDON SCREENING [place] SCREENING DIGITAL BREAST TOMOSYNTHESIS BI SCREENING MAMMOGRAPHY BI 2-VIEW BREAST INC [place] Willams APRN.CNP [address] [place] [address] [facility] [address] [place] [address] Referral ID Status Reason Start Date Expiration Date V isits Requested Visits Authorized [id number] Closed Auto-Generate d Referral 07/14/2022 08/13/2023 [address] [facility] for referral (narrative)No reason for referral information [facility] Work Phone: Reyezy for visit Narrative* Diagnostic Procedure Only (Routine) - Closed Specialty Diagnoses / Procedures Referred By Mathieu ambrosio Referred To Contact [facility] Diagnoses Encounter for screening mammogram for malignant neoplasm of breast Dense breast tissue on mammogram Procedures BRANDON SCREENING [place] SCREENING DIGITAL BREAST TOMOSYNTHESIS BI SCREENING MAMMOGRAPHY BI 2-VIEW BREAST INC [place] Willams APRN.DIRECTOR OF TESTING [address] [place] [place] [address] [facility] [address] [place] [address] Referral ID Status Reason Start Date Expiration Date V isits Requested Visits Authorized [id number] Closed Auto-Generate d Referral 07/14/2022 08/13/2023 1 1 [facility] Family History No Family History Records FoundUnknown Family Member Name Dates Details Brother 1 Comments:Alcoholic Status:Active Father Comments:Cancer ? Status:Active Mother Comments:Cancer ? Status:Active Unknown Family Member Name Dates Details Brother 1 Comments:Alcoholic Status:Active Father Comments:Cancer ? Status:Active Mother Comments:Cancer ? Status:Active Unknown Family Member Name Dates Details Brother 1 Comments:Alcoholic Status:Active Father Comments:Cancer ? Status:Active Mother Comments:Cancer ? Status:Active Unknown Family Member Name Dates Details Brother 1 Comments:Alcoholic Status:Active Father Comments:Cancer ? Status:Active Mother Comments:Cancer ? Status:Active Unknown Family Member Name Dates Details Brother 1 Comments:Alcoholic Status:Active Father Comments:Cancer ? Status:Active Mother Comments:Cancer ? Status:Active Unknown Family Member Name Dates Details Brother 1 Comments:Alcoholic Status:Active Father Comments:Cancer ? Status:Active Mother Comments:Cancer ? Status:Active Unknown Family Member Name Dates Details Brother 1 Comments:Alcoholic Status:Active Father Comments:Cancer ? Status:Active Mother Comments:Cancer ? Status:Active Unknown Family Member Name Dates Details Brother 1 Comments:Alcoholic Status:Active Father Comments:Cancer ? Status:Active Mother Comments:Cancer ? Status:Active Unknown Family Member Name Dates Details Brother 1 Comments:Alcoholic Status:Active Father Comments:Cancer ? Status:Active Mother Comments:Cancer ? Status:Active Unknown Family Member Name Dates Details Brother 1 Comments:Alcoholic Status:Active Father Comments:Cancer ? Status:Active Mother Comments:Cancer ? Status:Active Unknown Family Member Name Dates Details Brother 1 Comments:Alcoholic Status:Active Father Comments:Cancer ? Status:Active Mother Comments:Cancer ? Status:Active Unknown Family Member Name Dates Details Brother 1 Comments:Alcoholic Status:Active Father Comments:Cancer ? Status:Active Mother Comments:Cancer ? Status:Active Unknown Family Member Name Dates Details Brother 1 Comments:Alcoholic Status:Active Father Comments:Cancer ? Status:Active Mother Comments:Cancer ? Status:Active Unknown Family Member Name Dates Details Brother 1 Comments:Alcoholic Status:Active Father Comments:Cancer ? Status:Active Mother Comments:Cancer ? Status:Active Unknown Family Member Name Dates Details Brother 1 Comments:Alcoholic Status:Active Father Comments:Cancer ? Status:Active Mother Comments:Cancer ? Status:Active Unknown Family Member Name Dates Details Brother 1 Comments:Alcoholic Status:Active Father Comments:Cancer ? Status:Active Mother Comments:Cancer ? Status:Active Unknown Family Member Name Dates Details Brother 1 Comments:Alcoholic Status:Active Father Comments:Cancer ? Status:Active Mother Comments:Cancer ? Status:Active Unknown Family Member Name Dates Details Brother 1 Comments:Alcoholic Status:Active Father Comments:Cancer ? Status:Active Mother Comments:Cancer ? Status:Active Unknown Family Member Name Dates Details Brother 1 Comments:Alcoholic Status:Active Father Comments:Cancer ? Status:Active Mother Comments:Cancer ? Status:Active Unknown Family Member Name Dates Details Brother 1 Comments:Alcoholic Status:Active Father Comments:Cancer ? Status:Active Mother Comments:Cancer ? Status:Active Unknown Family Member Name Dates Details Brother 1 Comments:Alcoholic Status:Active Father Comments:Cancer ? Status:Active Mother Comments:Cancer ? Status:Active Unknown Family Member Name Dates Details Brother 1 Comments:Alcoholic Status:Active Father Comments:Cancer ? Status:Active Mother Comments:Cancer ? Status:Active Instructions Name Dates Details Current non-smoker : How to access health information online Indication:Current non-smoker Current non-smoker : How to access health information online - Detail Indication:Current non-smoker Current non-smoker : Patient Instructions Indication:Current non-smoker BMI 22.0-22.9, adult : Patie nt Instructions Indication:BMI 22.0-22.9, adult Insomnia : Patient Instructi ons Indication:Insomnia UTI (urinary tract infection ) : How to access health information online Indication:UTI (urinary tract infection) UTI (urinary tract infection ) : How to access health information online - Detail Indication:UTI (urinary tract infection) Pharyngitis, unspecified kt ology : How to access health information online Indication:Pharyngitis, unspecified etiology Pharyngitis, unspecified kt ology : How to access health information online - Detail Indication:Pharyngitis, unspecified etiology Pharyngitis, unspecified kt ology : Patient Instructions Indication:Pharyngitis, unspecified etiology FATIGUE : Patient Instructio ns Indication:FATIGUE Vitamin D deficiency, unspec ified : Patient Instructions Indication:Vitamin D deficiency, unspecified Body aches : Patient Instruc tions Indication:Body aches GENERAL SYMPTOMS; OTHER SLEE P DISTURBANCES : Patient Instructions Indication:GENERAL SYMPTOMS; OTHER SLEEP DISTURBANCES Name Dates Details How to access health informa tion online Indication:Current non-smoker Start:18-Feb-2019 Instruction Type:Patient Education How to access health informa tion online - Detail Indication:Current non-smoker Start:18-Feb-2019 Instruction Type:Patient Education Patient Instructions Indication:Current non-smoker Start:18-Feb-2019 Instruction Type:Provider Instructions for Treatment How to access health informa tion online Indication:Current non-smoker Start:26-Nov-2018 Instruction Type:Patient Education How to access health informa tion online - Detail Indication:Current non-smoker Start:26-Nov-2018 Instruction Type:Patient Education Patient Instructions Indication:Current non-smoker Start:26-Nov-2018 Instruction Type:Provider Instructions for Treatment How to access health informa tion online Indication:Current non-smoker Start:14-Jun-2018 Instruction Type:Patient Education How to access health informa tion online - Detail Indication:Current non-smoker Start:14-Jun-2018 Instruction Type:Patient Education Patient Instructions Indication:BMI 22.0-22.9, adult Start:14-Jun-2018 Instruction Type:Provider Instructions for Treatment How to access health informa tion online Indication:Current non-smoker Start:02-Jul-2017 Instruction Type:Patient Education How to access health informa tion online - Detail Indication:Current non-smoker Start:02-Jul-2017 Instruction Type:Patient Education Patient Instructions Indication:Current non-smoker Start:02-Jul-2017 Instruction Type:Provider Instructions for Treatment How to access health informa tion online Indication:Current non-smoker Start:10-Apr-2017 Instruction Type:Patient Education How to access health informa tion online - Detail Indication:Current non-smoker Start:10-Apr-2017 Instruction Type:Patient Education Patient Instructions Indication:Current non-smoker Start:10-Apr-2017 Instruction Type:Provider Instructions for Treatment Patient Instructions Indication:Insomnia Start:31-Jul-2016 Instruction Type:Provider Instructions for Treatment How to access health informa tion online Indication:UTI (urinary tract infection) Start:21-Jun-2016 Instruction Type:Patient Education How to access health informa tion online - Detail Indication:UTI (urinary tract infection) Start:21-Jun-2016 Instruction Type:Patient Education How to access health informa tion online Indication:Pharyngitis, unspecified etiology Start:08-Dec-2015 Instruction Type:Patient Education How to access health informa tion online - Detail Indication:Pharyngitis, unspecified etiology Start:08-Dec-2015 Instruction Type:Patient Education Patient Instructions Indication:Pharyngitis, unspecified etiology Start:08-Dec-2015 Instruction Type:Provider Instructions for Treatment Patient Instructions Indication:FATIGUE Start:19-Aug-2014 Instruction Type:Provider Instructions for Treatment Patient Instructions Indication:Vitamin D deficiency, unspecified Start:02-Jan-2014 Instruction Type:Provider Instructions for Treatment Patient Instructions Indication:Body aches Start:22-Oct-2013 Instruction Type:Provider Instructions for Treatment Patient Instructions Indication:Vitamin D deficiency, unspecified Start:01-May-2013 Instruction Type:Provider Instructions for Treatment Patient Instructions Indication:GENERAL SYMPTOMS; OTHER SLEEP DISTURBANCES Start:27-Jan-2013 Instruction Type:Provider Instructions for Treatment Patient Instructions Indication:GENERAL SYMPTOMS; OTHER SLEEP DISTURBANCES Start:30-Dec-2012 Instruction Type:Provider Instructions for Treatment Name Dates Details How to access health informa tion online Indication:Current non-smoker Start:18-Feb-2019 Instruction Type:Patient Education How to access health informa tion online - Detail Indication:Current non-smoker Start:18-Feb-2019 Instruction Type:Patient Education Patient Instructions Indication:Current non-smoker Start:18-Feb-2019 Instruction Type:Provider Instructions for Treatment How to access health informa tion online Indication:Current non-smoker Start:26-Nov-2018 Instruction Type:Patient Education How to access health informa tion online - Detail Indication:Current non-smoker Start:26-Nov-2018 Instruction Type:Patient Education Patient Instructions Indication:Current non-smoker Start:26-Nov-2018 Instruction Type:Provider Instructions for Treatment How to access health informa tion online Indication:Current non-smoker Start:14-Jun-2018 Instruction Type:Patient Education How to access health informa tion online - Detail Indication:Current non-smoker Start:14-Jun-2018 Instruction Type:Patient Education Patient Instructions Indication:BMI 22.0-22.9, adult Start:14-Jun-2018 Instruction Type:Provider Instructions for Treatment How to access health informa tion online Indication:Current non-smoker Start:02-Jul-2017 Instruction Type:Patient Education How to access health informa tion online - Detail Indication:Current non-smoker Start:02-Jul-2017 Instruction Type:Patient Education Patient Instructions Indication:Current non-smoker Start:02-Jul-2017 Instruction Type:Provider Instructions for Treatment How to access health informa tion online Indication:Current non-smoker Start:10-Apr-2017 Instruction Type:Patient Education How to access health informa tion online - Detail Indication:Current non-smoker Start:10-Apr-2017 Instruction Type:Patient Education Patient Instructions Indication:Current non-smoker Start:10-Apr-2017 Instruction Type:Provider Instructions for Treatment Patient Instructions Indication:Insomnia Start:31-Jul-2016 Instruction Type:Provider Instructions for Treatment How to access health informa tion online Indication:UTI (urinary tract infection) Start:21-Jun-2016 Instruction Type:Patient Education How to access health informa tion online - Detail Indication:UTI (urinary tract infection) Start:21-Jun-2016 Instruction Type:Patient Education How to access health informa tion online Indication:Pharyngitis, unspecified etiology Start:08-Dec-2015 Instruction Type:Patient Education How to access health informa tion online - Detail Indication:Pharyngitis, unspecified etiology Start:08-Dec-2015 Instruction Type:Patient Education Patient Instructions Indication:Pharyngitis, unspecified etiology Start:08-Dec-2015 Instruction Type:Provider Instructions for Treatment Patient Instructions Indication:FATIGUE Start:19-Aug-2014 Instruction Type:Provider Instructions for Treatment Patient Instructions Indication:Vitamin D deficiency, unspecified Start:02-Jan-2014 Instruction Type:Provider Instructions for Treatment Patient Instructions Indication:Body aches Start:22-Oct-2013 Instruction Type:Provider Instructions for Treatment Patient Instructions Indication:Vitamin D deficiency, unspecified Start:01-May-2013 Instruction Type:Provider Instructions for Treatment Patient Instructions Indication:GENERAL SYMPTOMS; OTHER SLEEP DISTURBANCES Start:27-Jan-2013 Instruction Type:Provider Instructions for Treatment Patient Instructions Indication:GENERAL SYMPTOMS; OTHER SLEEP DISTURBANCES Start:30-Dec-2012 Instruction Type:Provider Instructions for Treatment Name Dates Details How to access health informa tion online Indication:Current non-smoker Start:23-Jun-2019 Instruction Type:Patient Education How to access health informa tion online - Detail Indication:Current non-smoker Start:23-Jun-2019 Instruction Type:Patient Education Patient Instructions Indication:UTI symptoms Start:23-Jun-2019 Instruction Type:Provider Instructions for Treatment How to access health informa tion online Indication:Current non-smoker Start:18-Feb-2019 Instruction Type:Patient Education How to access health informa tion online - Detail Indication:Current non-smoker Start:18-Feb-2019 Instruction Type:Patient Education Patient Instructions Indication:Current non-smoker Start:18-Feb-2019 Instruction Type:Provider Instructions for Treatment How to access health informa tion online Indication:Current non-smoker Start:26-Nov-2018 Instruction Type:Patient Education How to access health informa tion online - Detail Indication:Current non-smoker Start:26-Nov-2018 Instruction Type:Patient Education Patient Instructions Indication:Current non-smoker Start:26-Nov-2018 Instruction Type:Provider Instructions for Treatment How to access health informa tion online Indication:Current non-smoker Start:14-Jun-2018 Instruction Type:Patient Education How to access health informa tion online - Detail Indication:Current non-smoker Start:14-Jun-2018 Instruction Type:Patient Education Patient Instructions Indication:BMI 22.0-22.9, adult Start:14-Jun-2018 Instruction Type:Provider Instructions for Treatment How to access health informa tion online Indication:Current non-smoker Start:02-Jul-2017 Instruction Type:Patient Education How to access health informa tion online - Detail Indication:Current non-smoker Start:02-Jul-2017 Instruction Type:Patient Education Patient Instructions Indication:Current non-smoker Start:02-Jul-2017 Instruction Type:Provider Instructions for Treatment How to access health informa tion online Indication:Current non-smoker Start:10-Apr-2017 Instruction Type:Patient Education How to access health informa tion online - Detail Indication:Current non-smoker Start:10-Apr-2017 Instruction Type:Patient Education Patient Instructions Indication:Current non-smoker Start:10-Apr-2017 Instruction Type:Provider Instructions for Treatment Patient Instructions Indication:Insomnia Start:31-Jul-2016 Instruction Type:Provider Instructions for Treatment How to access health informa tion online Indication:UTI (urinary tract infection) Start:21-Jun-2016 Instruction Type:Patient Education How to access health informa tion online - Detail Indication:UTI (urinary tract infection) Start:21-Jun-2016 Instruction Type:Patient Education How to access health informa tion online Indication:Pharyngitis, unspecified etiology Start:08-Dec-2015 Instruction Type:Patient Education How to access health informa tion online - Detail Indication:Pharyngitis, unspecified etiology Start:08-Dec-2015 Instruction Type:Patient Education Patient Instructions Indication:Pharyngitis, unspecified etiology Start:08-Dec-2015 Instruction Type:Provider Instructions for Treatment Patient Instructions Indication:FATIGUE Start:19-Aug-2014 Instruction Type:Provider Instructions for Treatment Patient Instructions Indication:Vitamin D deficiency, unspecified Start:02-Jan-2014 Instruction Type:Provider Instructions for Treatment Patient Instructions Indication:Body aches Start:22-Oct-2013 Instruction Type:Provider Instructions for Treatment Patient Instructions Indication:Vitamin D deficiency, unspecified Start:01-May-2013 Instruction Type:Provider Instructions for Treatment Patient Instructions Indication:GENERAL SYMPTOMS; OTHER SLEEP DISTURBANCES Start:27-Jan-2013 Instruction Type:Provider Instructions for Treatment Patient Instructions Indication:GENERAL SYMPTOMS; OTHER SLEEP DISTURBANCES Start:30-Dec-2012 Instruction Type:Provider Instructions for Treatment Name Dates Details How to access health informa tion online Indication:BMI 21.0-21.9, adult Start:03-Nov-2019 Instruction Type:Patient Education How to access health informa tion online - Detail Indication:BMI 21.0-21.9, adult Start:03-Nov-2019 Instruction Type:Patient Education Patient Instructions Indication:Upper respiratory infection, viral Start:03-Nov-2019 Instruction Type:Provider Instructions for Treatment How to access health informa tion online Indication:Current non-smoker Start:23-Jun-2019 Instruction Type:Patient Education How to access health informa tion online - Detail Indication:Current non-smoker Start:23-Jun-2019 Instruction Type:Patient Education Patient Instructions Indication:UTI symptoms Start:23-Jun-2019 Instruction Type:Provider Instructions for Treatment How to access health informa tion online Indication:Current non-smoker Start:18-Feb-2019 Instruction Type:Patient Education How to access health informa tion online - Detail Indication:Current non-smoker Start:18-Feb-2019 Instruction Type:Patient Education Patient Instructions Indication:Current non-smoker Start:18-Feb-2019 Instruction Type:Provider Instructions for Treatment How to access health informa tion online Indication:Current non-smoker Start:26-Nov-2018 Instruction Type:Patient Education How to access health informa tion online - Detail Indication:Current non-smoker Start:26-Nov-2018 Instruction Type:Patient Education Patient Instructions Indication:Current non-smoker Start:26-Nov-2018 Instruction Type:Provider Instructions for Treatment How to access health informa tion online Indication:Current non-smoker Start:14-Jun-2018 Instruction Type:Patient Education How to access health informa tion online - Detail Indication:Current non-smoker Start:14-Jun-2018 Instruction Type:Patient Education Patient Instructions Indication:BMI 22.0-22.9, adult Start:14-Jun-2018 Instruction Type:Provider Instructions for Treatment How to access health informa tion online Indication:Current non-smoker Start:02-Jul-2017 Instruction Type:Patient Education How to access health informa tion online - Detail Indication:Current non-smoker Start:02-Jul-2017 Instruction Type:Patient Education Patient Instructions Indication:Current non-smoker Start:02-Jul-2017 Instruction Type:Provider Instructions for Treatment How to access health informa tion online Indication:Current non-smoker Start:10-Apr-2017 Instruction Type:Patient Education How to access health informa tion online - Detail Indication:Current non-smoker Start:10-Apr-2017 Instruction Type:Patient Education Patient Instructions Indication:Current non-smoker Start:10-Apr-2017 Instruction Type:Provider Instructions for Treatment Patient Instructions Indication:Insomnia Start:31-Jul-2016 Instruction Type:Provider Instructions for Treatment How to access health informa tion online Indication:UTI (urinary tract infection) Start:21-Jun-2016 Instruction Type:Patient Education How to access health informa tion online - Detail Indication:UTI (urinary tract infection) Start:21-Jun-2016 Instruction Type:Patient Education How to access health informa tion online Indication:Pharyngitis, unspecified etiology Start:08-Dec-2015 Instruction Type:Patient Education How to access health informa tion online - Detail Indication:Pharyngitis, unspecified etiology Start:08-Dec-2015 Instruction Type:Patient Education Patient Instructions Indication:Pharyngitis, unspecified etiology Start:08-Dec-2015 Instruction Type:Provider Instructions for Treatment Patient Instructions Indication:FATIGUE Start:19-Aug-2014 Instruction Type:Provider Instructions for Treatment Patient Instructions Indication:Vitamin D deficiency, unspecified Start:02-Jan-2014 Instruction Type:Provider Instructions for Treatment Patient Instructions Indication:Body aches Start:22-Oct-2013 Instruction Type:Provider Instructions for Treatment Patient Instructions Indication:Vitamin D deficiency, unspecified Start:01-May-2013 Instruction Type:Provider Instructions for Treatment Patient Instructions Indication:GENERAL SYMPTOMS; OTHER SLEEP DISTURBANCES Start:27-Jan-2013 Instruction Type:Provider Instructions for Treatment Patient Instructions Indication:GENERAL SYMPTOMS; OTHER SLEEP DISTURBANCES Start:30-Dec-2012 Instruction Type:Provider Instructions for Treatment Name Dates Details How to access health informa tion online Indication:BMI 21.0-21.9, adult Start:03-Nov-2019 Instruction Type:Patient Education How to access health informa tion online - Detail Indication:BMI 21.0-21.9, adult Start:03-Nov-2019 Instruction Type:Patient Education Patient Instructions Indication:Upper respiratory infection, viral Start:03-Nov-2019 Instruction Type:Provider Instructions for Treatment How to access health informa tion online Indication:Current non-smoker Start:23-Jun-2019 Instruction Type:Patient Education How to access health informa tion online - Detail Indication:Current non-smoker Start:23-Jun-2019 Instruction Type:Patient Education Patient Instructions Indication:UTI symptoms Start:23-Jun-2019 Instruction Type:Provider Instructions for Treatment How to access health informa tion online Indication:Current non-smoker Start:18-Feb-2019 Instruction Type:Patient Education How to access health informa tion online - Detail Indication:Current non-smoker Start:18-Feb-2019 Instruction Type:Patient Education Patient Instructions Indication:Current non-smoker Start:18-Feb-2019 Instruction Type:Provider Instructions for Treatment How to access health informa tion online Indication:Current non-smoker Start:26-Nov-2018 Instruction Type:Patient Education How to access health informa tion online - Detail Indication:Current non-smoker Start:26-Nov-2018 Instruction Type:Patient Education Patient Instructions Indication:Current non-smoker Start:26-Nov-2018 Instruction Type:Provider Instructions for Treatment How to access health informa tion online Indication:Current non-smoker Start:14-Jun-2018 Instruction Type:Patient Education How to access health informa tion online - Detail Indication:Current non-smoker Start:14-Jun-2018 Instruction Type:Patient Education Patient Instructions Indication:BMI 22.0-22.9, adult Start:14-Jun-2018 Instruction Type:Provider Instructions for Treatment How to access health informa tion online Indication:Current non-smoker Start:02-Jul-2017 Instruction Type:Patient Education How to access health informa tion online - Detail Indication:Current non-smoker Start:02-Jul-2017 Instruction Type:Patient Education Patient Instructions Indication:Current non-smoker Start:02-Jul-2017 Instruction Type:Provider Instructions for Treatment How to access health informa tion online Indication:Current non-smoker Start:10-Apr-2017 Instruction Type:Patient Education How to access health informa tion online - Detail Indication:Current non-smoker Start:10-Apr-2017 Instruction Type:Patient Education Patient Instructions Indication:Current non-smoker Start:10-Apr-2017 Instruction Type:Provider Instructions for Treatment Patient Instructions Indication:Insomnia Start:31-Jul-2016 Instruction Type:Provider Instructions for Treatment How to access health informa tion online Indication:UTI (urinary tract infection) Start:21-Jun-2016 Instruction Type:Patient Education How to access health informa tion online - Detail Indication:UTI (urinary tract infection) Start:21-Jun-2016 Instruction Type:Patient Education How to access health informa tion online Indication:Pharyngitis, unspecified etiology Start:08-Dec-2015 Instruction Type:Patient Education How to access health informa tion online - Detail Indication:Pharyngitis, unspecified etiology Start:08-Dec-2015 Instruction Type:Patient Education Patient Instructions Indication:Pharyngitis, unspecified etiology Start:08-Dec-2015 Instruction Type:Provider Instructions for Treatment Patient Instructions Indication:FATIGUE Start:19-Aug-2014 Instruction Type:Provider Instructions for Treatment Patient Instructions Indication:Vitamin D deficiency, unspecified Start:02-Jan-2014 Instruction Type:Provider Instructions for Treatment Patient Instructions Indication:Body aches Start:22-Oct-2013 Instruction Type:Provider Instructions for Treatment Patient Instructions Indication:Vitamin D deficiency, unspecified Start:01-May-2013 Instruction Type:Provider Instructions for Treatment Patient Instructions Indication:GENERAL SYMPTOMS; OTHER SLEEP DISTURBANCES Start:27-Jan-2013 Instruction Type:Provider Instructions for Treatment Patient Instructions Indication:GENERAL SYMPTOMS; OTHER SLEEP DISTURBANCES Start:30-Dec-2012 Instruction Type:Provider Instructions for Treatment Name Dates Details How to access health informa tion online Indication:BMI 21.0-21.9, adult Start:03-Nov-2019 Instruction Type:Patient Education How to access health informa tion online - Detail Indication:BMI 21.0-21.9, adult Start:03-Nov-2019 Instruction Type:Patient Education Patient Instructions Indication:Upper respiratory infection, viral Start:03-Nov-2019 Instruction Type:Provider Instructions for Treatment How to access health informa tion online Indication:Current non-smoker Start:23-Jun-2019 Instruction Type:Patient Education How to access health informa tion online - Detail Indication:Current non-smoker Start:23-Jun-2019 Instruction Type:Patient Education Patient Instructions Indication:UTI symptoms Start:23-Jun-2019 Instruction Type:Provider Instructions for Treatment How to access health informa tion online Indication:Current non-smoker Start:18-Feb-2019 Instruction Type:Patient Education How to access health informa tion online - Detail Indication:Current non-smoker Start:18-Feb-2019 Instruction Type:Patient Education Patient Instructions Indication:Current non-smoker Start:18-Feb-2019 Instruction Type:Provider Instructions for Treatment How to access health informa tion online Indication:Current non-smoker Start:26-Nov-2018 Instruction Type:Patient Education How to access health informa tion online - Detail Indication:Current non-smoker Start:26-Nov-2018 Instruction Type:Patient Education Patient Instructions Indication:Current non-smoker Start:26-Nov-2018 Instruction Type:Provider Instructions for Treatment How to access health informa tion online Indication:Current non-smoker Start:14-Jun-2018 Instruction Type:Patient Education How to access health informa tion online - Detail Indication:Current non-smoker Start:14-Jun-2018 Instruction Type:Patient Education Patient Instructions Indication:BMI 22.0-22.9, adult Start:14-Jun-2018 Instruction Type:Provider Instructions for Treatment How to access health informa tion online Indication:Current non-smoker Start:02-Jul-2017 Instruction Type:Patient Education How to access health informa tion online - Detail Indication:Current non-smoker Start:02-Jul-2017 Instruction Type:Patient Education Patient Instructions Indication:Current non-smoker Start:02-Jul-2017 Instruction Type:Provider Instructions for Treatment How to access health informa tion online Indication:Current non-smoker Start:10-Apr-2017 Instruction Type:Patient Education How to access health informa tion online - Detail Indication:Current non-smoker Start:10-Apr-2017 Instruction Type:Patient Education Patient Instructions Indication:Current non-smoker Start:10-Apr-2017 Instruction Type:Provider Instructions for Treatment Patient Instructions Indication:Insomnia Start:31-Jul-2016 Instruction Type:Provider Instructions for Treatment How to access health informa tion online Indication:UTI (urinary tract infection) Start:21-Jun-2016 Instruction Type:Patient Education How to access health informa tion online - Detail Indication:UTI (urinary tract infection) Start:21-Jun-2016 Instruction Type:Patient Education How to access health informa tion online Indication:Pharyngitis, unspecified etiology Start:08-Dec-2015 Instruction Type:Patient Education How to access health informa tion online - Detail Indication:Pharyngitis, unspecified etiology Start:08-Dec-2015 Instruction Type:Patient Education Patient Instructions Indication:Pharyngitis, unspecified etiology Start:08-Dec-2015 Instruction Type:Provider Instructions for Treatment Patient Instructions Indication:FATIGUE Start:19-Aug-2014 Instruction Type:Provider Instructions for Treatment Patient Instructions Indication:Vitamin D deficiency, unspecified Start:02-Jan-2014 Instruction Type:Provider Instructions for Treatment Patient Instructions Indication:Body aches Start:22-Oct-2013 Instruction Type:Provider Instructions for Treatment Patient Instructions Indication:Vitamin D deficiency, unspecified Start:01-May-2013 Instruction Type:Provider Instructions for Treatment Patient Instructions Indication:GENERAL SYMPTOMS; OTHER SLEEP DISTURBANCES Start:27-Jan-2013 Instruction Type:Provider Instructions for Treatment Patient Instructions Indication:GENERAL SYMPTOMS; OTHER SLEEP DISTURBANCES Start:30-Dec-2012 Instruction Type:Provider Instructions for Treatment Name Dates Details How to access health informa tion online Indication:BMI 21.0-21.9, adult Start:03-Nov-2019 Instruction Type:Patient Education How to access health informa tion online - Detail Indication:BMI 21.0-21.9, adult Start:03-Nov-2019 Instruction Type:Patient Education Patient Instructions Indication:Upper respiratory infection, viral Start:03-Nov-2019 Instruction Type:Provider Instructions for Treatment How to access health informa tion online Indication:Current non-smoker Start:23-Jun-2019 Instruction Type:Patient Education How to access health informa tion online - Detail Indication:Current non-smoker Start:23-Jun-2019 Instruction Type:Patient Education Patient Instructions Indication:UTI symptoms Start:23-Jun-2019 Instruction Type:Provider Instructions for Treatment How to access health informa tion online Indication:Current non-smoker Start:18-Feb-2019 Instruction Type:Patient Education How to access health informa tion online - Detail Indication:Current non-smoker Start:18-Feb-2019 Instruction Type:Patient Education Patient Instructions Indication:Current non-smoker Start:18-Feb-2019 Instruction Type:Provider Instructions for Treatment How to access health informa tion online Indication:Current non-smoker Start:26-Nov-2018 Instruction Type:Patient Education How to access health informa tion online - Detail Indication:Current non-smoker Start:26-Nov-2018 Instruction Type:Patient Education Patient Instructions Indication:Current non-smoker Start:26-Nov-2018 Instruction Type:Provider Instructions for Treatment How to access health informa tion online Indication:Current non-smoker Start:14-Jun-2018 Instruction Type:Patient Education How to access health informa tion online - Detail Indication:Current non-smoker Start:14-Jun-2018 Instruction Type:Patient Education Patient Instructions Indication:BMI 22.0-22.9, adult Start:14-Jun-2018 Instruction Type:Provider Instructions for Treatment How to access health informa tion online Indication:Current non-smoker Start:02-Jul-2017 Instruction Type:Patient Education How to access health informa tion online - Detail Indication:Current non-smoker Start:02-Jul-2017 Instruction Type:Patient Education Patient Instructions Indication:Current non-smoker Start:02-Jul-2017 Instruction Type:Provider Instructions for Treatment How to access health informa tion online Indication:Current non-smoker Start:10-Apr-2017 Instruction Type:Patient Education How to access health informa tion online - Detail Indication:Current non-smoker Start:10-Apr-2017 Instruction Type:Patient Education Patient Instructions Indication:Current non-smoker Start:10-Apr-2017 Instruction Type:Provider Instructions for Treatment Patient Instructions Indication:Insomnia Start:31-Jul-2016 Instruction Type:Provider Instructions for Treatment How to access health informa tion online Indication:UTI (urinary tract infection) Start:21-Jun-2016 Instruction Type:Patient Education How to access health informa tion online - Detail Indication:UTI (urinary tract infection) Start:21-Jun-2016 Instruction Type:Patient Education How to access health informa tion online Indication:Pharyngitis, unspecified etiology Start:08-Dec-2015 Instruction Type:Patient Education How to access health informa tion online - Detail Indication:Pharyngitis, unspecified etiology Start:08-Dec-2015 Instruction Type:Patient Education Patient Instructions Indication:Pharyngitis, unspecified etiology Start:08-Dec-2015 Instruction Type:Provider Instructions for Treatment Patient Instructions Indication:FATIGUE Start:19-Aug-2014 Instruction Type:Provider Instructions for Treatment Patient Instructions Indication:Vitamin D deficiency, unspecified Start:02-Jan-2014 Instruction Type:Provider Instructions for Treatment Patient Instructions Indication:Body aches Start:22-Oct-2013 Instruction Type:Provider Instructions for Treatment Patient Instructions Indication:Vitamin D deficiency, unspecified Start:01-May-2013 Instruction Type:Provider Instructions for Treatment Patient Instructions Indication:GENERAL SYMPTOMS; OTHER SLEEP DISTURBANCES Start:27-Jan-2013 Instruction Type:Provider Instructions for Treatment Patient Instructions Indication:GENERAL SYMPTOMS; OTHER SLEEP DISTURBANCES Start:30-Dec-2012 Instruction Type:Provider Instructions for Treatment Name Dates Details How to access health informa tion online Indication:BMI 21.0-21.9, adult Start:03-Nov-2019 Instruction Type:Patient Education How to access health informa tion online - Detail Indication:BMI 21.0-21.9, adult Start:03-Nov-2019 Instruction Type:Patient Education Patient Instructions Indication:Upper respiratory infection, viral Start:03-Nov-2019 Instruction Type:Provider Instructions for Treatment How to access health informa tion online Indication:Current non-smoker Start:23-Jun-2019 Instruction Type:Patient Education How to access health informa tion online - Detail Indication:Current non-smoker Start:23-Jun-2019 Instruction Type:Patient Education Patient Instructions Indication:UTI symptoms Start:23-Jun-2019 Instruction Type:Provider Instructions for Treatment How to access health informa tion online Indication:Current non-smoker Start:18-Feb-2019 Instruction Type:Patient Education How to access health informa tion online - Detail Indication:Current non-smoker Start:18-Feb-2019 Instruction Type:Patient Education Patient Instructions Indication:Current non-smoker Start:18-Feb-2019 Instruction Type:Provider Instructions for Treatment How to access health informa tion online Indication:Current non-smoker Start:26-Nov-2018 Instruction Type:Patient Education How to access health informa tion online - Detail Indication:Current non-smoker Start:26-Nov-2018 Instruction Type:Patient Education Patient Instructions Indication:Current non-smoker Start:26-Nov-2018 Instruction Type:Provider Instructions for Treatment How to access health informa tion online Indication:Current non-smoker Start:14-Jun-2018 Instruction Type:Patient Education How to access health informa tion online - Detail Indication:Current non-smoker Start:14-Jun-2018 Instruction Type:Patient Education Patient Instructions Indication:BMI 22.0-22.9, adult Start:14-Jun-2018 Instruction Type:Provider Instructions for Treatment How to access health informa tion online Indication:Current non-smoker Start:02-Jul-2017 Instruction Type:Patient Education How to access health informa tion online - Detail Indication:Current non-smoker Start:02-Jul-2017 Instruction Type:Patient Education Patient Instructions Indication:Current non-smoker Start:02-Jul-2017 Instruction Type:Provider Instructions for Treatment How to access health informa tion online Indication:Current non-smoker Start:10-Apr-2017 Instruction Type:Patient Education How to access health informa tion online - Detail Indication:Current non-smoker Start:10-Apr-2017 Instruction Type:Patient Education Patient Instructions Indication:Current non-smoker Start:10-Apr-2017 Instruction Type:Provider Instructions for Treatment Patient Instructions Indication:Insomnia Start:31-Jul-2016 Instruction Type:Provider Instructions for Treatment How to access health informa tion online Indication:UTI (urinary tract infection) Start:21-Jun-2016 Instruction Type:Patient Education How to access health informa tion online - Detail Indication:UTI (urinary tract infection) Start:21-Jun-2016 Instruction Type:Patient Education How to access health informa tion online Indication:Pharyngitis, unspecified etiology Start:08-Dec-2015 Instruction Type:Patient Education How to access health informa tion online - Detail Indication:Pharyngitis, unspecified etiology Start:08-Dec-2015 Instruction Type:Patient Education Patient Instructions Indication:Pharyngitis, unspecified etiology Start:08-Dec-2015 Instruction Type:Provider Instructions for Treatment Patient Instructions Indication:FATIGUE Start:19-Aug-2014 Instruction Type:Provider Instructions for Treatment Patient Instructions Indication:Vitamin D deficiency, unspecified Start:02-Jan-2014 Instruction Type:Provider Instructions for Treatment Patient Instructions Indication:Body aches Start:22-Oct-2013 Instruction Type:Provider Instructions for Treatment Patient Instructions Indication:Vitamin D deficiency, unspecified Start:01-May-2013 Instruction Type:Provider Instructions for Treatment Patient Instructions Indication:GENERAL SYMPTOMS; OTHER SLEEP DISTURBANCES Start:27-Jan-2013 Instruction Type:Provider Instructions for Treatment Patient Instructions Indication:GENERAL SYMPTOMS; OTHER SLEEP DISTURBANCES Start:30-Dec-2012 Instruction Type:Provider Instructions for Treatment Summary Purpose Advance Directives No Advanced Directives Records Found Advance Directive Response Recorded Date/ Time Living Will No July 06 2:24am Power of Armorer Technician No July 06, 2021 2:24am Advance Directive Response Recorded Date/ Time Living Will No July 06 1:24am Power of Armorer Technician No July 06, 2021 1:24am Advance Directive Response Recorded Date/ Time Living Will No March 18, 2023 7:31am Power of Armorer Technician No March 18 7:31am Advance Directive Response Recorded Date/ Time Name of Medical Power of Armorer Technician son May 13, 2023 5:02pm Living Will Yes May 13 3 5:02pm Power of Armorer Technician Yes May 13, 2 023 5:02pm Advance Directive Response Recorded Date/ Time Living Will Yes May 13 3 4:02pm Power of Armorer Technician Yes May 13, 2 023 4:02pm Advance Directive Response Recorded Date/ Time Living Will No September 21, 2 024 5:31am Power of Armorer Technician No September 21, 2024 5:31am Advance Directive Response Recorded Date/ Time Living Will No September 21, 2 024 5:31am Do you have a Healthcare Power of Armorer Technician? 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 9:43am INR February 06, 2025 9:33a m Additional Source Comments INFORMATION SOURCE (unrecogn ized section and content) DATE CREATED AUTHOR 11/27/2018 [facility] DATE CREATED AUTHOR AUTHOR'S ORGANIZ ATION 01/19/2024 [facility] [place] [facility] ([place] DATE CREATED AUTHOR AUTHOR'S ORGANIZ ATION 02/06/2025 [facility] DATE CREATED AUTHOR AUTHOR'S ORGANIZ ATION 02/18/2025 [facility] Goals (unrecognized section and content) Goals may be documented in a n alternate sectionGoals may be documented in an alternate sectionGoals may be documented in an alternate sectionGoals may be documented in an alternate sectionGoals may be documented in an alternate sectionGoals may be documented in an alternate sectionGoals may be documented in an alternate section No data available for this sectionGoals may be documented in an alternate sectionGoals may be documented in an alternate sectionGoals may be documented in an alternate section Source Comments (unrecognize d section and content) In the event this informatio n is protected by the Federal Confidentiality of Alcohol and Drug Abuse Patient Records regulations: The Federal rules restrict any use of the information to criminally investigate or prosecute any alcohol or drug abuse patient.[facility] the event this information is protected by the Federal Confidentiality of Alcohol and Drug Abuse Patient Records regulations: The Federal rules restrict any use of the information to criminally investigate or prosecute any alcohol or drug abuse patient.[facility] HospitalIn the event this information is protected by the Federal Confidentiality of Alcohol and Drug Abuse Patient Records regulations: The Federal rules restrict any use of the information to criminally investigate or prosecute any alcohol or drug abuse patient.[facility]In the event this information is protected by the Federal Confidentiality of Alcohol and Drug Abuse Patient Records regulations: The Federal rules restrict any use of the information to criminally investigate or prosecute any alcohol or drug abuse patient.[facility] HospitalIn the event this information is protected by the Federal Confidentiality of Alcohol and Drug Abuse Patient Records regulations: The Federal rules restrict any use of the information to criminally investigate or prosecute any alcohol or drug abuse patient.[facility] HospitalIn the event this information is protected by the Federal Confidentiality of Alcohol and Drug Abuse Patient Records regulations: The Federal rules restrict any use of the information to criminally investigate or prosecute any alcohol or drug abuse patient.[facility] HospitalIn the event this information is protected by the Federal Confidentiality of Alcohol and Drug Abuse Patient Records regulations: The Federal rules restrict any use of the information to criminally investigate or prosecute any alcohol or drug abuse patient.[facility] HospitalIn the event this information is protected by the Federal Confidentiality of Alcohol and Drug Abuse Patient Records regulations: The Federal rules restrict any use of the information to criminally investigate or prosecute any alcohol or drug abuse patient.[facility] HospitalIn the event this information is protected by the Federal Confidentiality of Alcohol and Drug Abuse Patient Records regulations: The Federal rules restrict any use of the information to criminally investigate or prosecute any alcohol or drug abuse patient.[facility] HospitalIn the event this information is protected by the Federal Confidentiality of Alcohol and Drug Abuse Patient Records regulations: The Federal rules restrict any use of the information to criminally investigate or prosecute any alcohol or drug abuse patient.[facility] HospitalIn the event this information is protected by the Federal Confidentiality of Alcohol and Drug Abuse Patient Records regulations: The Federal rules restrict any use of the information to criminally investigate or prosecute any alcohol or drug abuse patient.[facility] Reason for Visit (unrecogniz ed section and content) Reason Comments Orders Reason Comments 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 Reason Comments Dendritic Corneal ulcer Follow up Eye Burning Left Eye Eye Itching Left Eye Blurred Vision Left Eye Foreign Body Sensation Left eye Eye Discharge Left Eye White in color, p er patient Headaches Consistently all day today Reason Comments Corneal Ulcer Follow Up Left eye Reason Comments Corneal Ulcer Follow Up Left eye Reason Comments Dendritic Corneal Ulcer Left Eye Reason Comments 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 Corie Cadet DO Family Provider Active Dr. oCrie Cadet DO Primary Care Provider Active Team Status: Active Member Role Status Dates Dr. Corie Cadet DO Primary Care Provider Active Dr. David Daily MD Attending Provider Active Hever GARNER PA-C Referring Provider Active Team Status: Inactive Member Role Status Dates Dr. Corie Cadet DO Primary Care Provider Active Hever GARNER PA-C Attending Provider, Referring Pr ovider Active Dr. Dioincio Lancaster , Other Provider Active Team Status: Inactive Member Role Status Dates Dr. Corie Cadet DO Primary Care Provider Active JYOTI CABRALES MD Attending Provider, Referring Pro vider Active [employer] Consultant Relationship Specialty Start Date End Date Corie Cadet DO PCP - General 07/22/07 Team Status: Active Member Role Status Dates Dr. Corie Cadet DO Family Provider Active Dr. Alex Ovalles MD Primary Care Provider Active Team Status: Inactive Member Role Status Dates Dr. Corie Cadet DO Primary Care Pr ovider, Attending Provider, Referring Provider Active Team Status: Inactive Member Role Status Dates Dr. Corie Cadet DO Primary Care Provider Active Dr. Ramón Ha DO Attending Provider, Emergency Provider Active Team Status: Inactive Member Role Status Dates Dr. Alex Ovalles MD Primary Care Provi juan, Attending Provider, Referring Provider Active Team Status: Inactive Member Role Status Dates Dr. Alex Ovalles MD Primary Care Provider Active Dr. Josey Tran DO Emergency Provider Active Team Status: Inactive Member Role Status Dates Dr. Alex Ovalles MD Primary Care Provider, Attending Provider Active Team Status: Inactive Member Role Status Dates Dr. Alex Ovalles MD Primary Care Provider Active Dr. oJsey Tran DO Attending Provider, Emergency Pro vider Active [employer] Relationship Specialty Start Date End Date Corie Cadet DO PCP - General 07/22/07 [employer] Consultant Relationship Specialty Start Date End Date Alex Ovalles Chi [address] [place], [place] [id number] PCP - General Gerontology 11/19/23 Rhys Everett [facility] [place] [address] Referring Ophthalmology 11/19/23 [employer] Consultant Relationship Specialty Start Date End Date Alex Ovalles Chi [address] [place], [place] [address] PCP - General Gerontology 11/19/23 Rhys Everett [address] [place] [address] Referring Ophthalmology 11/19/23 [employer] Consultant Relationship Specialty Start Date End Date Alex Ovalles Chi [address] [place], [place] [id number] PCP - General Gerontology 11/19/23 Rhys Everett [address] [facility] SHAN [place] [id number] Referring Ophthalmology 11/19/23 [employer] Sales Consultant Relationship Specialty Start Date End Date Alex Ovalles Chi [address] [facility] [address] [place], [place] [id number] PCP - General Gerontology 11/19/23 Rhys Everett [address] [facility] [place] [address] Referring Ophthalmology 11/19/23 [employer] Consultant Relationship Specialty Start Date End Date Alex Ovalles Chi [address] [id number] PCP - General Gerontology 11/19/23 Rhys Everett [address] [facility] [place] [address] Referring Ophthalmology 11/19/23 [employer] Consultant Relationship Specialty Start Date End Date Alex Ovalles Chi [address] [id number] PCP - General Gerontology 11/19/23 Rhys Everett [address] [facility] [place] [id number] Referring Ophthalmology 11/19/23 [employer] Consultant Relationship Specialty Start Date End Date Alex Ovalles Chi [address] [id number] PCP - General Gerontology 11/19/23 Rhys Everett [address] [facility] [place] [address] Referring Ophthalmology 11/19/23 Team Status: Inactive Member Role Status Dates Dr. Alex Ovalles MD Primary Care Provider Active Start: September 21, 2024 End: September 21, 2024 Dr. Darell Davidson DO Attending Provider Active Start: September 21, 2024 End: September 21, 2024 Dr. Darell Davidson DO Emergency Provider Active Start: September 21, 2024 End: September 21, 2024 Team Status: Inactive Member Role Status Dates Dr. Alex Ovalles MD Primary Care Provider Active Start: November 24, 2024 End: November 24, 2024 Dr. Alex Ovalles MD Attending Provider Active Start: November 24, 2024 End: November 24, 2024 Team Status: Inactive Member Role Status Dates Dr. Alex Ovalles MD Primary Care Provider Active Start: January 06, 2025 End: January 06, 2025 CORE MAKER HELPER. aPdmini Drummond Attending Provider Active Star t: January 06, 2025 End: January 06, 2025 CORE MAKER HELPERRadha Drummond Referring Provider Active Star t: January 06, 2025 End: January 06, 2025 Team Status: Inactive Member Role Status Dates Dr. Alex Ovalles MD Primary Care Provider Active Start: February 06, 2025 End: February 06, 2025 Dr. Yash Ortiz MD Attending Provider Active Start: February 06, 2025 End: February 06, 2025 Dr. Yash Ortiz MD Referring Provider Active Start: February 06, 2025 End: February 06, 2025 FOR RECORDS PERTAINING TO PATIENTS WHO ARE OR HAVE BEEN ENROLLED IN A CHEMICAL DEPENDENCY/SUBSTANCEABUSE PROGRAM, SOME INFORMATION MAY BE OMITTED. This clinical summary was aggregated from multiple sources. Caution should be exercised in using it in the provision of clinical care. This summary normalizes information from multiple sources, and as a consequence, information in this document may materially change the coding, format and clinical context of patient data. In addition, data may be omitted in some cases. CLINICAL DECISIONS SHOULD BE BASED ON THE PRIMARY CLINICAL RECORDS. [facility], [facility]. provides no warranty or guarantee of the accuracy or completeness of information in this document.
== END | disposition home or self-care (01) ==
PROVIDERS: PCP Family Medicine Geriatric Medicine; Referring Provider Family Medicine Geriatric Medicine; Visit Provider Family Medicine Geriatric Medicine
DX: R10.9 Unspecified abdominal pain (principal)
CPT/HCPCS: 74177

== ENCOUNTER → 2025-05-28 | Outpatient (CLI) | payer MEDICARE, OTHER, SELFPAY ==
[2025-05-28 10:17] LABS: Hematocrit 38.9 % (37-47); Hemoglobin 12.8 g/dL (12.0-15.0); Immature Granulocytes Count 0.130 X10^3/uL (0.0-0.0); Mean Corp Hgb Conc 32.9 g/dL (32-36); Mean Corpuscular Volume 96.0 fL (81-99); Mean Platelet Vol. 10.2 fl (6.2-12.0); NRBC Flagged by Analyzer 0 % (0-5); Platelet Count 298 K/mm3 (150-450); RBC Distribution Width CV 12.7 % (11.6-14.6); RBC Distribution Width SD 44.8 fl (35.1-43.9); Red Blood Count 4.05 M/mm3 (4.2-5.4); White Blood Count 9.0 K/mm3 (4.4-11.0)
[2025-05-28 11:00] LABS: AST(SGOT) 21 U/L (<=31); Alanine Aminotransfer ALT/SGPT 18 U/L (<=34); Albumin, Serum 3.9 g/dL (3.4-4.8); Alkaline Phosphatase 76 U/L (35-104); Anion Gap 14 (5-15); BUN 8 mg/dL (4-19); BUN/Creat Ratio 14.7 RATIO (10-20); Calcium,Total 8.9 mg/dL (7.6-11.0); Carbon Dioxide 21.5 mmol/L (21.0-32.0); Chloride 103 mmol/L (98-108); Globulin 2.6 g/dL (2.2-4.2); Glucose 166 mg/dL (70-99); Potassium 3.8 mmol/L (3.3-5.1); Vitamin D,25 Hydroxy 33.3 ng/mL (30-100)
[2025-05-28 11:11] LABS: Cholesterol 192 mg/dL (<=200); Low Density Lipoprotein Calc. 105 mg/dL; Triglycerides 142 mg/dL; Very Low Density Lipoprotein 28 mg/dL (5-40); cholesterol:hdl ratio screen 3.25
[2025-05-28 17:45] LABS: Xtra Tube Kwok EXTRA TUBE
== END | disposition home or self-care (01) ==
LOC: POLAB3 09:44
PROVIDERS: PCP Family Medicine Geriatric Medicine; Visit Provider Family Medicine Geriatric Medicine
DX: E78.5 Hyperlipidemia, unspecified (principal); E55.9 Vitamin D deficiency, unspecified; R53.83 Other fatigue
CPT/HCPCS: 36415; 80053; 80061; 82306; 84443; 85025

== ENCOUNTER → 2025-06-01 | Outpatient (CLI) | payer MEDICARE, OTHER, SELFPAY ==
[2025-06-01 16:02] LABS: Staph aureus DNA By PCR NEGATIVE (Negative)
[2025-06-01 16:03] LABS: Staph aureus DNA By PCR NEGATIVE (Negative)
== END | disposition home or self-care (01) ==
LOC: POLAB3 14:24
PROVIDERS: PCP Family Medicine Geriatric Medicine; Visit Provider Family Medicine Geriatric Medicine
DX: S81.801A Unspecified open wound, right lower leg, initial encounter (principal)
CPT/HCPCS: 87070; 87075; 87077; 87186; 87205; 87640

== ENCOUNTER → 2025-06-16 | Outpatient (CLI) | payer MEDICARE, OTHER, SELFPAY ==
--- NOTE | 2025-06-16 10:20 | BD_ITS ---
PROCEDURE: DEXA BONE DENSITY STUDY 06/16/2025 REASON FOR EXAM: F, age 69 y/o . TECHNIQUE: Procedure Code: BDDBD Modality: DX Procedure: DEXA BONE DENSITY STUDY COMPARISON: None. FINDINGS: BMD and T-SCORES Lumbar spine: 0.806 g/cm2, T-score -2.2 Levels: L1 through L4 Right femoral neck: 0.549 g/cm2, T-score -2.7 Right total hip: 0.687 g/cm2, T-score -2.1 The World Health Organization has defined the following categories based on bone density: Normal bone density: T-score equal to or greater than -1.0 Osteopenia: T-score between -1.0 and -2.5 Osteoporosis: T-score equal to or less than -2.5 FRAX (or Comparable) Fracture Risk Assessment: 10 Year Probability of Fracture: Major Osteoporotic Fracture: 14% Hip Fracture: 3.9% (Note: FRAX is not to be reported in setting of normal range bone density, osteoporosis on DEXA, known history of osteoporosis, prior osteoporotic hip or vertebral fracture, or for any patient undergoing pharmacological treatment for bone loss.) The National Osteoporosis Foundation (NOF) recommends pharmacological treatment for patients with a FRAX 10-year risk of 3% or higher for a hip fracture, or 20% or higher for a major osteoporotic fracture, to prevent osteoporosis and reduce fracture risk. The patient does meet the pharmacological treatment recommendations for prevention of osteoporosis. BD/Dexa Bone Density Study IMPRESSION: There is osteoporosis of the right femoral neck and osteopenia of the lumbar sp ine. Recommend follow-up as clinically warranted. Reading Location: [id number]
== END | disposition home or self-care (01) ==
LOC: OPBD 10:19
PROVIDERS: PCP Family Medicine Geriatric Medicine; Referring Provider Family Medicine Geriatric Medicine; Visit Provider Family Medicine Geriatric Medicine
DX: M81.0 Age-related osteoporosis without current pathological fracture (principal)
CPT/HCPCS: 77080

== ENCOUNTER 2025-06-17 09:15 | Outpatient (RCR) | payer MEDICARE, OTHER, SELFPAY ==
[2025-06-03 09:29] VITALS: BP 139/71; PULSE 78; RESP 18; TEMP 36.6; BMI 19.9
--- NOTE | 2025-06-03 12:25 | HP.PCM_ITS ---
History of Present Illness Date of Service: 06/03/25 Chief Complaint: Bilateral mehta avulsion lacerations History of Wound: 69-year-old white female that was walking up her steps to the porch and missed the top step and fell forward causing avulsion laceration to bilateral lower legs anterior mehta area. This was seen by her family doctor and given a shot of Rocephin and then she was given cephalexin and doxycycline. She has been using antibiotic ointments on it since it occurred last Sunday. [facility] Medical History Lumbar degenerative disc disease Bulging lumbar disc Low bone density Irregular heart beat GERD (gastroesophageal reflux disease) history of spur removal Anemia Arthritis Home Medications ?Medication ?Instructions ?Recorded ?Last Taken ?Type pantoprazole 40 mg tablet,delayed 40 mg PO BID 0 Unknown History release cephalexin 500 mg capsule 500 mg PO 4X/DAY 06/03/25 Un known History doxycycline hyclate 100 mg tablet 100 mg PO BID Unknown History Allergy/AdvReac Type Severity Reaction Status Date / Time bee venom protein (honey bee) Allergy Anaphylaxis Verified 05/28/25 10:39 gabapentin Allergy DIZZY AND Verified 05/28/25 10:39 LIGHTHEADED Family History Father Cancer Mother Cancer Brother Cancer Myocardial infarction Surgical History History of arthroscopic surgery of shoulder History of hand surgery History of carpal tunnel release History of tonsillectomy History of hysterectomy History of appendectomy Social History Smoking Status: Never smoker alcohol intake: never Addt'l Information Additional Findings: Cultures were obtained outside of the hospital at the doctor's office and were positive and treated with antibiotic therapy ROS Constitutional Constitutional: Reports systems reviewed and no addt'l complaints, except as documented Eyes Eyes: Reports systems reviewed and no addt'l complaints, except as documented ENT HEENT: Reports systems reviewed and no addt'l complaints, except as documented Cardiovascular Cardiovascular: Reports systems reviewed and no addt'l complaints, except as documented Respiratory/Chest Respiratory/Chest: Reports systems reviewed and no addt'l complaints, except as documented Gastrointestinal Gastrointestinal: Reports systems reviewed and no addt'l complaints, except as documented Genitourinary Genitourinary: Reports systems reviewed and no addt'l complaints, except as documented Musculoskeletal Musculoskeletal: Reports systems reviewed and no addt'l complaints, except as documented Integumentary Integumentary: Reports systems reviewed and no addt'l complaints, except as documented, wounds and other Details: Bilateral avulsion lacerations to both shins. Skin well-approximated with some slight open areas on both shins. Neurologic Neurologic: Reports systems reviewed and no addt'l complaints, except as documented Psychiatric Psychiatric: Reports systems reviewed and no addt'l complaints, except as documented Endocrine Endocrinology: Reports systems reviewed and no addt'l complaints, except as documented Hematologic/Lymphatic Hematologic/Lymphatic: Reports systems reviewed and no addt'l complaints, except as documented Allergic/Immunologic Allergic/Immunologic: Reports systems reviewed and no addt'l complaints, except as documented Vital Signs Vital Signs Vital Signs: 06/03/25 09:29 Temperature 98 F Temperature Source Temporal Pulse Rate 78 Respiratory Rate 18 Blood Pressure 139/71 H Blood Pressure Mean 93 Blood Pressure Source Monitor Blood Pressure Position Semi-Fowlers Blood Pressure Location Left Arm Weight Weight: 109 lb 0.015 oz Body Mass Index (BMI) 19.9 Physical Exam Const oriented x3 General Appearance: cooperative Exam Limitations: no limitations HEENT normocephalic Face and Sinus: normal facial exam Eyes PERRL Neck full ROM General: normal visual inspection Resp normal respiratory effort Effort and Inspection: able to speak in complete sentences Auscultation: clear to auscultation bilaterally Cardio regular rate and regular rhythm Palpation: normal PMI Rate: regular rate Rhythm: regular rhythm GI Palpation: soft and no hepatosplenomegaly Back/Spine Cervical Spine: cervical ROM normal Thoracic Spine / Upper Back: normal to inspection Lumbar Spine / Lower Back: normal to inspection Extremity normal to inspection General Extremity: normal exam except as noted Skin Wounds: wounds noted Wound Narrative: Bilateral mehta avulsion lacerations with skin partially well-approximated some open areas still apparent. No sign of infection noted Neuro oriented x3 Psych Appearance: grossly normal Speech: normal speech Thought Content: normal thought content Judgement: judgement good Debridement Note Debridement Note Wound debrided: Right mehta trauma Type of Debridement: Excisional debridement Anesthesia Used: 5% Lidocaine Gel Depth: in the subcutaneous layer Percentage of wound debrided: 100 Instrument Used: 5mm curette Tissue Removed: Fibrin Severity: Fat Layer Exposed Amount of bleeding with debridement: Mild Bleeding Controlled with: Compression and gauze Patient tolerated procedure: Patient tolerated procedure well Post-Debridement Measurements and Additional Note: Post-Debridement Measurements/Treatment - Nurse 1 - General Ulcer Assessment Start: 06/03/25 09:26 Freq: Status: Active Protocol: PHILIP Activity Type Activity Date Activity User E-sign Co-sign Detail Recorded Client Recorded Date Recorded By Document 06/03/25 09:29 RB [id number] 06/03/25 09:36 RB 06/03/25 09:29 WC - Today's Visit Information Type of service Initial Visit Arrival Mode Ambulatory Transfer Assistance None Patient Identification Verified (Name & Yes ) Patient Requires Transmission-Based No Precautions Height and Weight Height 5 ft 2 in Weight 109 lb 0.015 oz Weight in Pounds 109.0 lbs Body Mass Index (BMI) 19.9 BMI Classification Normal Vital Signs Temperature (97.8 F-99.1 F) 98 F Temperature Source Temporal Pulse Rate (60-100) 78 Pulse Location Monitor Respiratory Rate (12-18) 18 Respiratory rate source Observation Blood Pressure (90/60-120/80) 139/71 H Blood Pressure Mean 93 Source Monitor Position Semi-Fowlers Blood Pressure Location Left Arm History Since Last Visit- (Skip if this is Patient's initial visit) Have you changed medications since your No last visit? Any new allergies or adverse reactions No Had a fall/change in ADL's that may No increase risk of falls Signs or symptoms of abuse and/or No neglect since last visit Have you been in the hospital since your No last visit? Has dressing in place as prescribed Yes Has compression in place as prescribed Yes Has offloadiing in place as prescribed N/A Experienced any changes in pain level or No management Left Footwear Regular Shoe Right Footwear Regular Shoe Pain Scale: 0-10 Numeric Is Patient Pain Free? Yes [facility] Nurse 1 - General Ulcer Measurement Start: 06/03/25 09:26 Freq: Status: Active Protocol: Activity Type Activity Date Activity User E-sign Co-sign Detail Recorded Client Recorded Date Recorded By Document 06/03/25 09:29 RB [id number] 06/03/25 09:36 RB 06/03/25 09:29 Wound Center Nurse 1 3. RLE -Combined with other wound No -Current Size (cm) - Length 3.5 -Current Size (cm) - Width 3.3 -Current Size (cm) - Depth 0.1 -Total Square Cm 11.55 -Photo Taken Yes -Tunneling No -Undermining/Tunneling No -Circular Undermining No -Exudate Amt Medium -Exudate Type Serosanguineous -Wound Margin Distinct, Outline Attached -Granulation Amt Medium (34-66%) -Granulation Quality Murphys -Slough/Fibrin Yes -Necrosis Amt Medium (34-66%) -Necrotic Tissue Type Adherent Slough -Structure Exposed N/A -Texture (Mariaa-wound Skin Appearance) Assessed -Moisture (Mariaa-wound Skin Appearance) Assessed -Color (Mariaa-wound Skin Appearance) Assessed, Hemosiderin Staining -Temperature (Mariaa-wound Skin No Abnormality Appearance) (Pt Warm) -Tenderness on Palpation (Mariaa-wound No Skin Appearance) -Ulcer Cleansing Wound Cleanser -Foul Odor after Cleansing No -Anesthetic Used 4% Lidocaine Solution 2. LLE -Combined with other wound No -Current Size (cm) - Length 9 -Current Size (cm) - Width 4.6 -Current Size (cm) - Depth 0.1 -Total Square Cm 41.4 -Photo Taken Yes -Tunneling No -Undermining/Tunneling No -Circular Undermining No -Exudate Amt Medium -Exudate Type Serosanguineous -Wound Margin Distinct, Outline Attached -Granulation Amt Medium (34-66%) -Granulation Quality Murphys -Slough/Fibrin Yes -Necrosis Amt Medium (34-66%) -Necrotic Tissue Type Adherent Slough -Structure Exposed N/A -Texture (Mariaa-wound Skin Appearance) Assessed -Moisture (Mariaa-wound Skin Appearance) Assessed -Color (Mariaa-wound Skin Appearance) Hemosiderin Staining -Temperature (Mariaa-wound Skin No Abnormality Appearance) (Pt Warm) -Tenderness on Palpation (Mariaa-wound No Skin Appearance) -Ulcer Cleansing Wound Cleanser -Foul Odor after Cleansing No -Anesthetic Used 4% Lidocaine Solution Lower Limb Edema Present Yes Right Calf (cm) 29.5 Right Ankle (cm) 19 Left Calf (cm) 30.5 Left Ankle (cm) 19.5 WC - Nurse 2 - General Ulcer CM Notes Start: 06/03/25 09:26 Freq: Status: Active Protocol: Activity Type Activity Date Activity User E-sign Co-sign Detail Recorded Client Recorded Date Recorded By Document 06/03/25 09:43 [facility] [id number] 06/03/25 09:53 [facility] 06/03/25 09:43 Wound Center Nurse 2 3. RLE -Time 09:44 -Correct Patient Yes -Correct Side, Site, Position Yes -Correct Procedure Yes -Procedure Performed Yes -Type of Procedure Debridement -Clinical Debridement Subcutaneous -Tissue Removed Subcutaneous -Post Debridement (cm) - Length 4 -Post Debridement (cm) - Width 0.6 -Post Debridement (cm) - Depth 0.1 -Total Square (Post) (cm) 2.4 -Area of Debridement (cm) - Length 4 -Area of Debridement (cm) - Width 0.6 -Total Square (Area) (cm) 2.4 -Tunneling No -Undermining/Tunneling No -Circular Undermining No -Wound/Ulcer Outcome Not Healed -Ulcer Cleansing Rinsed/ Irrigated with Saline -Foul Odor after Cleansing No -Bioengineered Tissue No -Bleeding Controlled with Pressure -Treatment Response Procedure Tolerated Well -Debridement - Subq, 1st 20sq cm Yes -Debridement, SubQ, ea addt'l 20sq cm 2 or part thereof 2. LLE -Time 09:44 -Correct Patient Yes -Correct Side, Site, Position Yes -Correct Procedure Yes -Procedure Performed Yes -Type of Procedure Debridement -Clinical Debridement Subcutaneous -Tissue Removed Subcutaneous -Post Debridement (cm) - Length 9 -Post Debridement (cm) - Width 5 -Post Debridement (cm) - Depth 0.1 -Total Square (Post) (cm) 45 -Area of Debridement (cm) - Length 9 -Area of Debridement (cm) - Width 5 -Total Square (Area) (cm) 45 -Tunneling No -Undermining/Tunneling No -Circular Undermining No -Wound/Ulcer Outcome Not Healed -Ulcer Cleansing Rinsed/ Irrigated with Saline -Foul Odor after Cleansing No -Bioengineered Tissue No -Bleeding Controlled with NA -Debridement - Subq, 1st 20sq cm No Pain Scale: 0-10 Numeric Is Patient Pain Free? Yes WC - Nurse 3 - General Ulcer D/C NN Start: 06/03/25 09:26 Freq: Status: Active Protocol: Activity Type Activity Date Activity User E-sign Co-sign Detail Recorded Client Recorded Date Recorded By Document 06/03/25 10:00 [place] [id number] 06/03/25 10:15 [place] 06/03/25 10:00 Wound Care Center Nurse 3 3. RLE -Foul Odor after Cleansing No -Negative Pressure Wound Therapy N/A -Primary Dressing Applied Aquacel Extra -Other Dressing EXTRA, ABD, ADAPTIC -Primary Dressing Covered/Secured with Dry Gauze & Roll Gauze, Secured with Tape -Aquacel Extra 1 BLE -Tubular Bandage Double Layer -Size of Tubigrip Used Size D -Size D ($) 2 Pain Scale: 0-10 Numeric Is Patient Pain Free? Yes WC - Visit Discharge Discharge Condition Stable Ambulatory Status Ambulatory Transportation Private Auto Medication Reconcilliation completed & No provided to patient/care provider Clinical Summary of Care Provided Yes Notes: PT VERBALIZED UNDERSTANDING OF NEW ORDERS. Additional Wound Wound debrided: Left mehta avulsion laceration trauma Type of Debridement: Excisional debridement Anesthesia Used: 5% Lidocaine Gel Depth: in the subcutaneous layer Percentage of wound debrided: 100 Instrument Used: 5mm curette Tissue Removed: Fibrin Severity: Fat Layer Exposed Amount of bleeding with debridement: Mild Bleeding Controlled with: Compression and gauze Patient tolerated procedure: Patient tolerated procedure well Assessment/Plan Assessment/Plan (1) Ulcer of lower extremity with fat layer exposed: CODE(S): L97.902 - Non-pressure chronic ulcer of unspecified part of unspecified lower leg with fat layer exposed QUALIFIERS: Laterality: unspecified laterality Qualified Code(s): L97.902 - 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 Apply Aquacel extra to wound base moistened and cover with Adaptic and foam dressing daily Compression stockings to be worn when up double layer Tubigrip Follow-up in 1 week (2) Open wound of lower extremity without complication: CODE(S): S81.809A - Unspecified open wound, unspecified lower leg, initial encounter QUALIFIERS: Encounter type: initial encounter Laterality: unspecified laterality Qualified Code(s): S81.809A - Unspecified open wound, unspecified lower leg, initial encounter
--- NOTE | 2025-06-03 13:00 | WC ---
PHOTO-RLE 06/03/25
--- NOTE | 2025-06-04 08:13 | WC ---
PHOTO-LLE 06/03/25
--- NOTE | 2025-06-08 11:03 | WC ---
pt called in complaining of leg pain and swelling. called pt. pt states is having a lot of leg pain. pt states that she also got a call from her PCP stating her wound cultures were positive. pt is already on antibiotics from her PCP. asked pt if she is keeping her legs elevated. pt states No. informed pt to keep legs elevated which will help decrease swelling and help with pain. informed pt legs should be level with heart or higher. asked pt if she is wearing her Tubi larry operator compression and pt states yes. informed pt she could take OTC pain meds that she can take per her medial history. pt states that she has been taking tylenol. pt states will try and keep legs elevated.
[2025-06-10 09:36] VITALS: BP 130/74; PULSE 76; RESP 18; TEMP 36.7; BMI 19.9
--- NOTE | 2025-06-10 11:47 | PCM.WC.PN ---
History of Present Illness Date of Service: 06/10/25 Chief Complaint: Bilateral mehta avulsion lacerations History of Wound: 69-year-old white female that was walking up her steps to the porch and missed the top step and fell forward causing avulsion laceration to bilateral lower legs anterior mehta area. This was seen by her family doctor and given a shot of Rocephin and then she was given cephalexin and doxycycline. She has been using antibiotic ointments on it since it occurred last Sunday. She also notes that she has been on Celebrex for a long period of time and when she decided it was thinning her skin too much and she was getting too many skin tears and staff she quit that medication after couple years. Progress of Wound: So the right leg is healing nicely has 1 at the superior end of the wound a fluctuant darkened tissue which is a blood clot on underneath the skin. She states it blistered really big over this last week and then went down and this is Genao left. I slit it open to make sure that there was no liquid but there was not it is just old blood underneath the skin. She appears to be very very sensitive when I try to do any kind of debridement so I am going to watch that 1 for a little bit and see if the medication will help with getting the debridement started before I go causing more pain. The left leg part of the avulsion laceration skin did not take and I took that off which left a rather large hole in her mehta area. We are going to do 1 more week of her treatment plan of Aquacel extra with Adaptic over top until fourth week and then we can apply for EpiFix also for her because that 1 area is so deep. Subjective Subjective Discussed plan of action with patient she agrees and she said that will be more tolerable I think she will be happy with that also with healing. Objective Data Objective Data She has an area just above on her right mehta above the regular wound was a blood blister that has seemed to swelled up this last week but now is flap but fluctuant. So I I&D did to make sure there was no liquid blood in it but it is just old jellylike blood in her wound there. She is very sensitive so I did not debrided all out. Instead I suggested we use the Aquacel extra in there to see if that would help clean it out a little bit. Her rest of her right leg is healing nicely she has got a nice V shaped avulsion laceration with the edges open that were dressing that are nice and beefy red and not infected. Measurements are smaller On the left leg which is the worst leg the area has not taken with the new skin and I debrided off some necrotic old tissue and now there is like a huge hole there in her mehta area. No odor noted will continue with the Aquacel for 1 more week that we will make it 4 weeks and then we can apply for EpiFix to fix that leg totally the wound is still rather large bleeding is under control she just has very sensitive skin and tears easily. Patient states she was on Celebrex for a couple years and then stopped it because it seemed to be thinning her skin. Vital Signs: Vital Signs Temp Pulse Resp BP O2 Del Method 98.1 F 76 18 130/74 H Room Air 06/10/25 09:36 06/10/25 09:36 06/10/25 09:36 06/10/25 09:36 06/10/25 09:36 Oxygen Delivery Method Room Air Weight: 109 lb 0.015 oz Body Mass Index (BMI) 19.9 Lab / Micro Data Attestation: I reviewed the patient's lab results. Physical Exam Const oriented x3 General Appearance: cooperative Exam Limitations: no limitations HEENT normocephalic Face and Sinus: normal facial exam Eyes PERRL Neck full ROM General: normal visual inspection Resp normal respiratory effort Effort and Inspection: able to speak in complete sentences Auscultation: clear to auscultation bilaterally Cardio regular rate and regular rhythm Palpation: normal PMI Rate: regular rate Rhythm: regular rhythm GI Palpation: soft and no hepatosplenomegaly Back/Spine Cervical Spine: cervical ROM normal Thoracic Spine / Upper Back: normal to inspection Lumbar Spine / Lower Back: normal to inspection Extremity normal to inspection General Extremity: normal exam except as noted Skin Wounds: wounds noted Wound Narrative: Bilateral mehta avulsion lacerations with skin partially well-approximated some open areas still apparent. No sign of infection noted Neuro oriented x3 Psych Appearance: grossly normal Speech: normal speech Thought Content: normal thought content Judgement: judgement good Debridement Note Debridement Note Wound debrided: Right mehta trauma Type of Debridement: Excisional debridement Anesthesia Used: 5% Lidocaine Gel Depth: in the subcutaneous layer Percentage of wound debrided: 100 Instrument Used: 5mm curette Tissue Removed: Fibrin necrotic tissue and slough Severity: Fat Layer Exposed Amount of bleeding with debridement: Mild Bleeding Controlled with: Compression and gauze Patient tolerated procedure: Patient tolerated procedure well Post-Debridement Measurements and Additional Note: Post-Debridement Measurements/Treatment WC - Nurse 1 - General Ulcer Assessment Start: 06/03/25 09:26 Freq: Status: Active Protocol: LOWJUSTIN Activity Type Activity Date Activity User E-sign Co-sign Detail Recorded Client Recorded Date Recorded By Document 06/03/25 09:29 RB [id number] 06/03/25 09:36 RB Document 06/10/25 09:36 DS [id number] 06/10/25 09:54 DS 06/03/25 06/10/25 09:29 09:36 - Today's Visit Information Type of service Initial Visit Follow-up Visit (Physician/[facility] ) Arrival Mode Ambulatory Ambulatory Transfer Assistance None Patient Identification Verified (Name & Yes ) Patient Requires Transmission-Based No Precautions Safety Precautions Fall Prevention Height and Weight Height 5 ft 2 in Weight 109 lb 0.015 oz Weight in Pounds 109.0 lbs Body Mass Index (BMI) 19.9 19.9 BMI Classification Normal Normal Vital Signs Temperature (97.8 F-99.1 F) 98 F 98.1 F Temperature Source Temporal Temporal Pulse Rate (60-100) 78 76 Pulse Location Monitor Monitor Respiratory Rate (12-18) 18 18 Respiratory rate source Observation Monitor Oxygen Delivery Method Room Air Blood Pressure (90/60-120/80) 139/71 H 130/74 H Blood Pressure Mean (mm Hg) 93 92 Source Monitor Monitor Position Semi-Fowlers Sitting Blood Pressure Location Left Arm Right Arm History Since Last Visit- (Skip if this is Patient's initial visit) Have you changed medications since your No No last visit? Any new allergies or adverse reactions No No Had a fall/change in ADL's that may No No increase risk of falls Signs or symptoms of abuse and/or No No neglect since last visit Have you been in the hospital since your No No last visit? Has dressing in place as prescribed Yes Yes Has compression in place as prescribed Yes Yes Has offloadiing in place as prescribed N/A N/A Experienced any changes in pain level or No Yes management Left Footwear Regular Shoe Regular Shoe Right Footwear Regular Shoe Regular Shoe Pain Scale: 0-10 Numeric Is Patient Pain Free? Yes No BLE -Description Aching -Intensity 3 -Duration (hours) Chronic -Pain Behavior No Change in Behavior -Pain Aggravating Factors Walking -Alleviating Factors/Interventions Emotional Support WC - Nurse 1 - General Ulcer Measurement Start: 06/03/25 09:26 Freq: Status: Active Protocol: Activity Type Activity Date Activity User E-sign Co-sign Detail Recorded Client Recorded Date Recorded By Document 06/03/25 09:29 RB [id number] 06/03/25 09:36 RB Document 06/10/25 09:36 DS [id number] 06/10/25 09:54 DS 06/03/25 06/10/25 09:29 09:36 Wound Center Nurse 1 #4 RIGHT LE SUP -Current Size (cm) - Length 0.1 -Current Size (cm) - Width 0.1 -Current Size (cm) - Depth 0.1 -Total Square Cm 0.01 -Date of Last Picture (Recall this 06/10/25 field) -Photo Taken Yes -Tunneling No -Undermining/Tunneling No -Circular Undermining No -Exudate Amt None Present -Wound Margin Distinct, Outline Attached -Texture (Mariaa-wound Skin Appearance) Assessed -Moisture (Mariaa-wound Skin Appearance) Assessed -Color (Mariaa-wound Skin Appearance) Assessed -Temperature (Mariaa-wound Skin No Abnormality Appearance) (Pt Warm) -Tenderness on Palpation (Mariaa-wound No Skin Appearance) -Ulcer Cleansing Soap and Water -Foul Odor after Cleansing No -Anesthetic Used 5% Lidocaine Gel 3. RLE -Combined with other wound No -Current Size (cm) - Length 3.5 3.5 -Current Size (cm) - Width 3.3 3.2 -Current Size (cm) - Depth 0.1 0.1 -Total Square Cm 11.55 11.20 -Date of Last Picture (Recall this 06/10/25 field) -Photo Taken Yes Yes -Tunneling No No -Undermining/Tunneling No No -Circular Undermining No No -Exudate Amt Medium Small -Exudate Type Serosanguineous Serosanguineous -Wound Margin Distinct, Distinct, Outline Outline Attached Attached -Granulation Amt Medium (34-66%) -Granulation Quality [place] -Slough/Fibrin Yes -Necrosis Amt Medium (34-66%) Large (67-100%) -Necrotic Tissue Type Adherent Slough Eschar -Structure Exposed N/A -Texture (Mariaa-wound Skin Appearance) Assessed Assessed -Moisture (Mariaa-wound Skin Appearance) Assessed Assessed -Color (Mariaa-wound Skin Appearance) Assessed, Assessed Hemosiderin Staining -Temperature (Mariaa-wound Skin No Abnormality No Abnormality Appearance) (Pt Warm) (Pt Warm) -Tenderness on Palpation (Mariaa-wound No Skin Appearance) -Ulcer Cleansing Wound Cleanser Soap and Water -Foul Odor after Cleansing No No -Anesthetic Used 4% Lidocaine 5% Lidocaine Solution Gel 2. LLE -Combined with other wound No -Current Size (cm) - Length 9 8.7 -Current Size (cm) - Width 4.6 5.0 -Current Size (cm) - Depth 0.1 0.1 -Total Square Cm 41.4 43.50 -Date of Last Picture (Recall this 06/10/25 field) -Photo Taken Yes Yes -Tunneling No No -Undermining/Tunneling No No -Circular Undermining No No -Exudate Amt Medium Small -Exudate Type Serosanguineous Serosanguineous -Wound Margin Distinct, Distinct, Outline Outline Attached Attached -Granulation Amt Medium (34-66%) Small (1-33%) -Granulation Quality [place] -Slough/Fibrin Yes -Necrosis Amt Medium (34-66%) Medium (34-66%) -Necrotic Tissue Type Adherent Slough Eschar -Structure Exposed N/A -Texture (Mariaa-wound Skin Appearance) Assessed Assessed -Moisture (Mariaa-wound Skin Appearance) Assessed Assessed -Color (Mariaa-wound Skin Appearance) Hemosiderin Assessed Staining -Temperature (Mariaa-wound Skin No Abnormality No Abnormality Appearance) (Pt Warm) (Pt Warm) -Tenderness on Palpation (Mariaa-wound No No Skin Appearance) -Ulcer Cleansing Wound Cleanser Soap and Water -Foul Odor after Cleansing No No -Anesthetic Used 4% Lidocaine 5% Lidocaine Solution Gel Lower Limb Edema Present Yes No Right Calf (cm) 29.5 29.8 Right Ankle (cm) 19 18.2 Left Calf (cm) 30.5 29.5 Left Ankle (cm) 19.5 17.8 WC - Nurse 2 - General Ulcer CM Notes Start: 06/03/25 09:26 Freq: Status: Active Protocol: Activity Type Activity Date Activity User E-sign Co-sign Detail Recorded Client Recorded Date Recorded By Document 06/03/25 09:43 [facility] [id number] 06/03/25 09:53 [facility] Document 06/10/25 09:59 [facility] [id number] 06/10/25 10:12 [facility] 06/03/25 06/10/25 09:43 09:59 Wound Center Nurse 2 #4 RIGHT LE SUP -Time 09:59 -Correct Patient Yes -Correct Side, Site, Position Yes -Correct Procedure Yes -Procedure Performed Yes -Type of Procedure Debridement -Clinical Debridement Subcutaneous -Tissue Removed Subcutaneous -Post Debridement (cm) - Length 1.3 -Post Debridement (cm) - Width 1.4 -Post Debridement (cm) - Depth 0.1 -Total Square (Post) (cm) 1.82 -Area of Debridement (cm) - Length 1.3 -Area of Debridement (cm) - Width 1.4 -Total Square (Area) (cm) 1.82 -Tunneling No -Undermining/Tunneling No -Circular Undermining No -Wound/Ulcer Outcome Not Healed -Ulcer Cleansing Rinsed/ Irrigated with Saline -Foul Odor after Cleansing No -Bioengineered Tissue No -Bleeding Controlled with Pressure -Debridement - Subq, 1st 20sq cm Yes 3. RLE -Time 09:44 10:00 -Correct Patient Yes Yes -Correct Side, Site, Position Yes Yes -Correct Procedure Yes Yes -Procedure Performed Yes Yes -Type of Procedure Debridement Debridement -Clinical Debridement Subcutaneous Subcutaneous -Tissue Removed Subcutaneous Subcutaneous -Post Debridement (cm) - Length 4 2.8 -Post Debridement (cm) - Width 0.6 3.5 -Post Debridement (cm) - Depth 0.1 0.1 -Total Square (Post) (cm) 2.4 9.80 -Area of Debridement (cm) - Length 4 2.8 -Area of Debridement (cm) - Width 0.6 3.5 -Total Square (Area) (cm) 2.4 9.80 -Tunneling No No -Undermining/Tunneling No No -Circular Undermining No No -Wound/Ulcer Outcome Not Healed Not Healed -Ulcer Cleansing Rinsed/ Rinsed/ Irrigated with Irrigated with Saline Saline -Foul Odor after Cleansing No No -Bioengineered Tissue No No -Bleeding Controlled with Pressure Pressure -Treatment Response Procedure Procedure Tolerated Well Tolerated Well -Debridement - Subq, 1st 20sq cm Yes No -Debridement, SubQ, ea addt'l 20sq cm 2 or part thereof 2. LLE -Time 09:44 10:01 -Correct Patient Yes Yes -Correct Side, Site, Position Yes Yes -Correct Procedure Yes Yes -Procedure Performed Yes Yes -Type of Procedure Debridement Debridement -Clinical Debridement Subcutaneous Subcutaneous -Tissue Removed Subcutaneous Subcutaneous -Post Debridement (cm) - Length 9 3 -Post Debridement (cm) - Width 5 2.8 -Post Debridement (cm) - Depth 0.1 0.3 -Total Square (Post) (cm) 45 8.4 -Area of Debridement (cm) - Length 9 3 -Area of Debridement (cm) - Width 5 2.8 -Total Square (Area) (cm) 45 8.4 -Tunneling No No -Undermining/Tunneling No No -Circular Undermining No No -Wound/Ulcer Outcome Not Healed Not Healed -Ulcer Cleansing Rinsed/ Rinsed/ Irrigated with Irrigated with Saline Saline -Foul Odor after Cleansing No No -Bioengineered Tissue No No -Bleeding Controlled with NA Pressure -Treatment Response Procedure Tolerated Well -Debridement - Subq, 1st 20sq cm No No Pain Scale: 0-10 Numeric Is Patient Pain Free? Yes Yes WC - Nurse 3 - General Ulcer D/C NN Start: 06/03/25 09:26 Freq: Status: Active Protocol: Activity Type Activity Date Activity User E-sign Co-sign Detail Recorded Client Recorded Date Recorded By Document 06/03/25 10:00 MT [id number] 06/03/25 10:15 MT Document 06/10/25 10:41 DL [id number] 06/10/25 10:42 DL 06/03/25 06/10/25 10:00 10:41 Wound Care Center Nurse 3 #4 RIGHT LE SUP -Ulcer Cleansing Rinsed/ Irrigated with Saline -Foul Odor after Cleansing No -Primary Dressing Applied Aquacel Extra, NonAdherent Contact Layer -Primary Dressing Covered/Secured with Dry Gauze & Roll Gauze, Secured with Tape -Aquacel Extra 1 3. RLE -Ulcer Cleansing Rinsed/ Irrigated with Saline -Foul Odor after Cleansing No No -Negative Pressure Wound Therapy N/A -Primary Dressing Applied Aquacel Extra Aquacel Extra, NonAdherent Contact Layer -Other Dressing EXTRA, ABD, ADAPTIC -Primary Dressing Covered/Secured with Dry Gauze & Dry Gauze & Roll Gauze, Roll Gauze, Secured with Secured with Tape Tape -Aquacel Extra 1 1 2. LLE -Ulcer Cleansing Rinsed/ Irrigated with Saline -Foul Odor after Cleansing No -Primary Dressing Applied NonAdherent Contact Layer -Other Dressing Aquacel Extra -Primary Dressing Covered/Secured with Dry Gauze & Roll Gauze, Secured with Tape BLE -Tubular Bandage Double Layer Double Layer -Size of Tubigrip Used Size D Size D -Size D ($) 2 2 Treatment Response Procedure Tolerated Well Pain Scale: 0-10 Numeric Is Patient Pain Free? Yes Yes WC - Visit Discharge Discharge Condition Stable Stable Ambulatory Status Ambulatory Ambulatory Transportation Private Auto Private Auto Medication Reconcilliation completed & No provided to patient/care provider Clinical Summary of Care Provided Yes Notes: PT VERBALIZED UNDERSTANDING OF NEW ORDERS. 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 Apply Aquacel extra to wound base moistened and cover with Adaptic and foam dressing daily Compression stockings to be worn when up double layer Tubigrip Follow-up in 1 week (2) Open wound of lower extremity without complication: CODE(S): S81.809A - Unspecified open wound, unspecified lower leg, initial encounter QUALIFIERS: Encounter type: initial encounter Laterality: unspecified laterality Qualified Code(s): S81.809A - Unspecified open wound, unspecified lower leg, initial encounter
--- NOTE | 2025-06-10 14:03 | WC ---
PHOTO- RLE 06/10/25
--- NOTE | 2025-06-10 14:04 | WC ---
PHOTO- LLE 06/10/25
[2025-06-17 09:40] VITALS: BP 143/75; PULSE 82; RESP 18; TEMP 36.2; BMI 19.9
--- NOTE | 2025-06-17 12:00 | PN.PCM_ITS ---
History of Present Illness Date of Service: 06/17/25 Chief Complaint: Bilateral mehta avulsion lacerations History of Wound: 69-year-old white female that was walking up her steps to the porch and missed the top step and fell forward causing avulsion laceration to bilateral lower legs anterior mehta area. This was seen by her family doctor and given a shot of Rocephin and then she was given cephalexin and doxycycline. She has been using antibiotic ointments on it since it occurred last Sunday. She also notes that she has been on Celebrex for a long period of time and when she decided it was thinning her skin too much and she was getting too many skin tears and staff she quit that medication after couple years. Progress of Wound: So the right leg is healing nicely has 1 at the superior end of the wound a fluctuant darkened tissue which is a blood clot on underneath the skin. She states it blistered really big over this last week and then went down and this is What is left. I slit it open to make sure that there was no liquid but there was not it is just old blood underneath the skin. She appears to be very very sensitive when I try to do any kind of debridement so I am going to watch that 1 for a little bit and see if the medication will help with getting the debridement started before I go causing more pain. The left leg part of the avulsion laceration skin did not take and I took that off which left a rather large hole in her mehta area. We are going to do 1 more week of her treatment plan of Aquacel extra with Adaptic over top until fourth week and then we can apply for EpiFix also for her because that 1 area is so deep. Subjective Subjective This week it has all improved but the left leg is still pretty big and open positive depth. Right leg is healing very quickly and more superficial. Objective Data Objective Data No sign of infection noted doing well and still sensitive on debridement but tolerates it better we will continue the same treatments and apply for EpiFix for the left leg. Will continue the same treatment for the right leg Patient had completed antibiotic therapy for her cultures that were positive Vital Signs: Vital Signs Temp Pulse Resp BP O2 Del Method 97.2 F L 82 18 143/75 H Room Air 06/17/25 09:40 06/17/25 09:40 06/17/25 09:40 06/17/25 09:40 06/10/25 09:36 Oxygen Delivery Method Room Air Weight: 109 lb 0.015 oz Body Mass Index (BMI) 19.9 Lab / Micro Data Attestation: I reviewed the patient's lab results. Physical Exam Const oriented x3 General Appearance: cooperative Exam Limitations: no limitations HEENT normocephalic Face and Sinus: normal facial exam Eyes PERRL Neck full ROM General: normal visual inspection Resp normal respiratory effort Effort and Inspection: able to speak in complete sentences Auscultation: clear to auscultation bilaterally Cardio regular rate and regular rhythm Palpation: normal PMI Rate: regular rate Rhythm: regular rhythm GI Palpation: soft and no hepatosplenomegaly Back/Spine Cervical Spine: cervical ROM normal Thoracic Spine / Upper Back: normal to inspection Lumbar Spine / Lower Back: normal to inspection Extremity normal to inspection General Extremity: normal exam except as noted Skin Wounds: wounds noted Wound Narrative: Bilateral mehta avulsion lacerations with skin partially well-approximated some open areas still apparent. No sign of infection noted Neuro oriented x3 Psych Appearance: grossly normal Speech: normal speech Thought Content: normal thought content Judgement: judgement good Debridement Note Debridement Note Wound debrided: Right mehta trauma Type of Debridement: Excisional debridement Anesthesia Used: 5% Lidocaine Gel Depth: in the subcutaneous layer Percentage of wound debrided: 100 Instrument Used: 3mm curette and - (Nippers) Tissue Removed: Fibrin some devitalized tissue Severity: Limited To Skin Breakdown Amount of bleeding with debridement: Mild Bleeding Controlled with: Compression and gauze Patient tolerated procedure: Patient tolerated procedure well Post-Debridement Measurements and Additional Note: Post-Debridement Measurements/Treatment - Nurse 1 - General Ulcer Assessment Start: 06/03/25 09:26 Freq: Status: Active Protocol: [email or web address] Activity Type Activity Date Activity User E-sign Co-sign Detail Recorded Client Recorded Date Recorded By Document 06/03/25 09:29 RB [id number] 06/03/25 09:36 RB Document 06/10/25 09:36 DS [id number] 06/10/25 09:54 DS Document 06/17/25 09:40 RB [id number] 06/17/25 09:45 RB 06/03/25 06/10/25 06/17/25 09:29 09:36 09:40 - Today's Visit Information Type of service Initial Visit Follow-up Visit Follow-up Visit (Physician/HOT DIE PRESS OPERATOR (Physician/HOT DIE PRESS OPERATOR ) ) Arrival Mode Ambulatory Ambulatory Ambulatory Transfer Assistance None None Patient Identification Verified (Name & Yes Yes ) Patient Requires Transmission-Based No No Precautions Safety Precautions Fall Prevention Height and Weight Height 5 ft 2 in Weight 109 lb 0.015 oz Weight in Pounds 109.0 lbs Body Mass Index (BMI) 19.9 19.9 19.9 BMI Classification Normal Normal Normal Vital Signs Temperature (97.8 F-99.1 F) 98 F 98.1 F 97.2 F L Temperature Source Temporal Temporal Temporal Pulse Rate (60-100) 78 76 82 Pulse Location Monitor Monitor Monitor Respiratory Rate (12-18) 18 18 18 Respiratory rate source Observation Monitor Observation Oxygen Delivery Method Room Air Blood Pressure (90/60-120/80) 139/71 H 130/74 H 143/75 H Blood Pressure Mean (mm Hg) 93 92 97 Source Monitor Monitor Monitor Position Semi-Fowlers Sitting Semi-Fowlers Blood Pressure Location Left Arm Right Arm Left Arm History Since Last Visit- (Skip if this is Patient's initial visit) Have you changed medications since your No No No last visit? Any new allergies or adverse reactions No No No Had a fall/change in ADL's that may No No No increase risk of falls Signs or symptoms of abuse and/or No No No neglect since last visit Have you been in the hospital since your No No No last visit? Has dressing in place as prescribed Yes Yes Yes Has compression in place as prescribed Yes Yes Yes Has offloadiing in place as prescribed N/A N/A N/A Experienced any changes in pain level or No Yes No management Left Footwear Regular Shoe Regular Shoe Regular Shoe Right Footwear Regular Shoe Regular Shoe Regular Shoe Pain Scale: 0-10 Numeric Is Patient Pain Free? Yes No Yes BLE -Description Aching -Intensity 3 -Duration (hours) Chronic -Pain Behavior No Change in Behavior -Pain Aggravating Factors Walking -Alleviating Factors/Interventions Emotional Support WC - Nurse 1 - General Ulcer Measurement Start: 06/03/25 09:26 Freq: Status: Active Protocol: Activity Type Activity Date Activity User E-sign Co-sign Detail Recorded Client Recorded Date Recorded By Document 06/03/25 09:29 RB [id number] 06/03/25 09:36 RB Document 06/10/25 09:36 DS [id number] 06/10/25 09:54 DS Document 06/17/25 09:40 RB [id number] 06/17/25 09:45 RB 06/03/25 06/10/25 06/17/25 09:29 09:36 09:40 Wound Center Nurse 1 #4 RIGHT LE SUP -Combined with other wound No -Current Size (cm) - Length 0.1 0.9 -Current Size (cm) - Width 0.1 1 -Current Size (cm) - Depth 0.1 0.1 -Total Square Cm 0.01 0.9 -Date of Last Picture (Recall this 06/10/25 field) -Photo Taken Yes Yes -Tunneling No No -Undermining/Tunneling No No -Circular Undermining No No -Exudate Amt None Present Medium -Exudate Type Serosanguineous -Wound Margin Distinct, Distinct, Outline Outline Attached Attached -Granulation Amt Medium (34-66%) -Granulation Quality [place] -Slough/Fibrin Yes -Necrosis Amt Medium (34-66%) -Necrotic Tissue Type Adherent Slough -Structure Exposed N/A -Texture (Mariaa-wound Skin Appearance) Assessed Assessed -Moisture (Mariaa-wound Skin Appearance) Assessed -Color (Mariaa-wound Skin Appearance) Assessed Assessed, Hemosiderin Staining -Temperature (Mariaa-wound Skin No Abnormality No Abnormality Appearance) (Pt Warm) (Pt Warm) -Tenderness on Palpation (Mariaa-wound No No Skin Appearance) -Ulcer Cleansing Soap and Water Wound Cleanser -Foul Odor after Cleansing No No -Anesthetic Used 5% Lidocaine 5% Lidocaine Gel Gel 3. RLE -Combined with other wound No No -Current Size (cm) - Length 3.5 3.5 0.1 -Current Size (cm) - Width 3.3 3.2 0.1 -Current Size (cm) - Depth 0.1 0.1 0.1 -Total Square Cm 11.55 11.20 0.01 -Date of Last Picture (Recall this 06/10/25 field) -Photo Taken Yes Yes Yes -Tunneling No No No -Undermining/Tunneling No No No -Circular Undermining No No No -Exudate Amt Medium Small Medium -Exudate Type Serosanguineous Serosanguineous Serosanguineous -Wound Margin Distinct, Distinct, Distinct, Outline Outline Outline Attached Attached Attached -Granulation Amt Medium (34-66%) Medium (34-66%) -Granulation Quality [place] -Slough/Fibrin Yes Yes -Necrosis Amt Medium (34-66%) Large (67-100%) Medium (34-66%) -Necrotic Tissue Type Adherent Slough Eschar Adherent Slough -Structure Exposed N/A N/A -Texture (Mariaa-wound Skin Appearance) Assessed Assessed Assessed -Moisture (Mariaa-wound Skin Appearance) Assessed Assessed Assessed -Color (Mariaa-wound Skin Appearance) Assessed, Assessed Hemosiderin Hemosiderin Staining Staining -Temperature (Mariaa-wound Skin No Abnormality No Abnormality No Abnormality Appearance) (Pt Warm) (Pt Warm) (Pt Warm) -Tenderness on Palpation (Mariaa-wound No No Skin Appearance) -Ulcer Cleansing Wound Cleanser Soap and Water Wound Cleanser -Foul Odor after Cleansing No No No -Anesthetic Used 4% Lidocaine 5% Lidocaine 5% Lidocaine Solution Gel Gel 2. LLE -Combined with other wound No No -Current Size (cm) - Length 9 8.7 2.2 -Current Size (cm) - Width 4.6 5.0 1.3 -Current Size (cm) - Depth 0.1 0.1 0.1 -Total Square Cm 41.4 43.50 2.86 -Date of Last Picture (Recall this 06/10/25 field) -Photo Taken Yes Yes Yes -Tunneling No No No -Undermining/Tunneling No No No -Circular Undermining No No No -Exudate Amt Medium Small Medium -Exudate Type Serosanguineous Serosanguineous Serosanguineous -Wound Margin Distinct, Distinct, Distinct, Outline Outline Outline Attached Attached Attached -Granulation Amt Medium (34-66%) Small (1-33%) Medium (34-66%) -Granulation Quality [place] -Slough/Fibrin Yes Yes -Necrosis Amt Medium (34-66%) Medium (34-66%) Medium (34-66%) -Necrotic Tissue Type Adherent Slough Eschar Adherent Slough -Structure Exposed N/A N/A -Texture (Mariaa-wound Skin Appearance) Assessed Assessed Assessed -Moisture (Mariaa-wound Skin Appearance) Assessed Assessed Assessed -Color (Mariaa-wound Skin Appearance) Hemosiderin Assessed Assessed, Staining Hemosiderin Staining -Temperature (Mariaa-wound Skin No Abnormality No Abnormality No Abnormality Appearance) (Pt Warm) (Pt Warm) (Pt Warm) -Tenderness on Palpation (Mariaa-wound No No No Skin Appearance) -Ulcer Cleansing Wound Cleanser Soap and Water Wound Cleanser -Foul Odor after Cleansing No No No -Anesthetic Used 4% Lidocaine 5% Lidocaine 5% Lidocaine Solution Gel Gel Lower Limb Edema Present Yes No Yes Right Calf (cm) 29.5 29.8 29 Right Ankle (cm) 19 18.2 18.5 Left Calf (cm) 30.5 29.5 29.6 Left Ankle (cm) 19.5 17.8 18 WC - Nurse 2 - General Ulcer CM Notes Start: 06/03/25 09:26 Freq: Status: Active Protocol: Activity Type Activity Date Activity User E-sign Co-sign Detail Recorded Client Recorded Date Recorded By Document 06/03/25 09:43 BMF [id number] 06/03/25 09:53 BMF Document 06/10/25 09:59 BMF [id number] 06/10/25 10:12 BMF Document 06/17/25 09:59 DS [id number] 06/17/25 10:07 DS 06/03/25 06/10/25 06/17/25 09:43 09:59 09:59 Wound Center Nurse 2 #4 RIGHT LE SUP -Time 09:59 09:59 -Correct Patient Yes Yes -Correct Side, Site, Position Yes Yes -Correct Procedure Yes Yes -Procedure Performed Yes Yes -Type of Procedure Debridement Debridement -Clinical Debridement Subcutaneous Subcutaneous -Tissue Removed Subcutaneous Subcutaneous -Post Debridement (cm) - Length 1.3 1.0 -Post Debridement (cm) - Width 1.4 1.0 -Post Debridement (cm) - Depth 0.1 0.1 -Total Square (Post) (cm) 1.82 1.00 -Area of Debridement (cm) - Length 1.3 1.0 -Area of Debridement (cm) - Width 1.4 1.0 -Total Square (Area) (cm) 1.82 1.00 -Tunneling No No -Undermining/Tunneling No No -Circular Undermining No No -Wound/Ulcer Outcome Not Healed Not Healed -Ulcer Cleansing Rinsed/ Rinsed/ Irrigated with Irrigated with Saline Saline -Foul Odor after Cleansing No No -Bioengineered Tissue No No -Bleeding Controlled with Pressure Pressure -Treatment Response Procedure Tolerated Well -Debridement - Subq, 1st 20sq cm Yes Yes 3. RLE -Time 09:44 10:00 10:00 -Correct Patient Yes Yes Yes -Correct Side, Site, Position Yes Yes Yes -Correct Procedure Yes Yes Yes -Procedure Performed Yes Yes Yes -Type of Procedure Debridement Debridement Debridement -Clinical Debridement Subcutaneous Subcutaneous Subcutaneous -Tissue Removed Subcutaneous Subcutaneous Subcutaneous -Post Debridement (cm) - Length 4 2.8 2.3 -Post Debridement (cm) - Width 0.6 3.5 0.4 -Post Debridement (cm) - Depth 0.1 0.1 0.1 -Total Square (Post) (cm) 2.4 9.80 0.92 -Area of Debridement (cm) - Length 4 2.8 2.3 -Area of Debridement (cm) - Width 0.6 3.5 0.4 -Total Square (Area) (cm) 2.4 9.80 0.92 -Tunneling No No No -Undermining/Tunneling No No No -Circular Undermining No No No -Wound/Ulcer Outcome Not Healed Not Healed Not Healed -Ulcer Cleansing Rinsed/ Rinsed/ Rinsed/ Irrigated with Irrigated with Irrigated with Saline Saline Saline -Foul Odor after Cleansing No No No -Bioengineered Tissue No No No -Bleeding Controlled with Pressure Pressure -Treatment Response Procedure Procedure Tolerated Well Tolerated Well -Debridement - Subq, 1st 20sq cm Yes No No -Debridement, SubQ, ea addt'l 20sq cm 2 or part thereof 2. LLE -Time : 10:01 10:00 -Correct Patient Yes Yes Yes -Correct Side, Site, Position Yes Yes Yes -Correct Procedure Yes Yes Yes -Procedure Performed Yes Yes Yes -Type of Procedure Debridement Debridement Debridement -Clinical Debridement Subcutaneous Subcutaneous Subcutaneous -Tissue Removed Subcutaneous Subcutaneous Subcutaneous -Post Debridement (cm) - Length 9 3 2.5 -Post Debridement (cm) - Width 5 2.8 3.0 -Post Debridement (cm) - Depth 0.1 0.3 0.2 -Total Square (Post) (cm) 45 8.4 7.50 -Area of Debridement (cm) - Length 9 3 2.5 -Area of Debridement (cm) - Width 5 2.8 3.0 -Total Square (Area) (cm) 45 8.4 7.50 -Tunneling No No No -Undermining/Tunneling No No No -Circular Undermining No No No -Wound/Ulcer Outcome Not Healed Not Healed Not Healed -Ulcer Cleansing Rinsed/ Rinsed/ Rinsed/ Irrigated with Irrigated with Irrigated with Saline Saline Saline -Foul Odor after Cleansing No No No -Bioengineered Tissue No No No -Bleeding Controlled with NA Pressure Pressure -Treatment Response Procedure Procedure Tolerated Well Tolerated Well -Debridement - Subq, 1st 20sq cm No No No Pain Scale: 0-10 Numeric Is Patient Pain Free? Yes Yes No BLE -Description Aching -Intensity 5 -Pain Behavior Facial Grimacing -Pain Aggravating Factors Debridement -Alleviating Factors/Interventions Emotional Support WC - Nurse 3 - General Ulcer D/C NN Start: 06/03/25 09:26 Freq: Status: Active Protocol: Activity Type Activity Date Activity User E-sign Co-sign Detail Recorded Client Recorded Date Recorded By Document 06/03/25 10:00 MT [id number] 06/03/25 10:15 MT Document 06/10/25 10:41 DL [id number] 06/10/25 10:42 DL Document 06/17/25 10:31 CP [id number] 06/17/25 10:45 CP 06/03/25 06/10/25 06/17/25 10:00 10:41 10:31 Wound Care Center Nurse 3 #4 RIGHT LE SUP -Ulcer Cleansing Rinsed/ Rinsed/ Irrigated with Irrigated with Saline Saline -Foul Odor after Cleansing No -Primary Dressing Applied Aquacel Extra, Aquacel Extra NonAdherent Contact Layer -Primary Dressing Covered/Secured with Dry Gauze & Dry Gauze & Roll Gauze, Roll Gauze, Secured with Secured with Tape Tape -Aquacel Extra 1 1 3. RLE -Ulcer Cleansing Rinsed/ Rinsed/ Irrigated with Irrigated with Saline Saline -Foul Odor after Cleansing No No -Negative Pressure Wound Therapy N/A -Primary Dressing Applied Aquacel Extra Aquacel Extra, Aquacel Extra NonAdherent Contact Layer -Other Dressing EXTRA, ABD, ADAPTIC -Primary Dressing Covered/Secured with Dry Gauze & Dry Gauze & Dry Gauze & Roll Gauze, Roll Gauze, Roll Gauze Secured with Secured with Tape Tape -Aquacel Extra 1 1 0 2. LLE -Ulcer Cleansing Rinsed/ Rinsed/ Irrigated with Irrigated with Saline Saline -Foul Odor after Cleansing No -Primary Dressing Applied NonAdherent Aquacel Extra Contact Layer -Other Dressing Aquacel Extra -Primary Dressing Covered/Secured with Dry Gauze & Dry Gauze & Roll Gauze, Roll Gauze, Secured with Secured with Tape Tape -Aquacel Extra 0 BLE -Tubular Bandage Double Layer Double Layer Double Layer -Size of Tubigrip Used Size D Size D Size D -Size D ($) 2 2 4 Treatment Response Procedure Tolerated Well Pain Scale: 0-10 Numeric Is Patient Pain Free? Yes Yes Yes WC - Visit Discharge Discharge Condition Stable Stable Stable Ambulatory Status Ambulatory Ambulatory Ambulatory Transportation Private Auto Private Auto Private Auto Medication Reconcilliation completed & No provided to patient/care provider Clinical Summary of Care Provided Yes Yes Notes: PT VERBALIZED UNDERSTANDING OF NEW ORDERS. 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 Apply Aquacel extra to wound base moistened and cover with Adaptic and foam dressing daily Compression stockings to be worn when up double layer Tubigrip Finished up antibiotic therapy Apply for EpiFix for left leg wound Follow-up in 1 week (2) Open wound of lower extremity without complication: CODE(S): S81.809A - Unspecified open wound, unspecified lower leg, initial encounter QUALIFIERS: Encounter type: initial encounter Laterality: unspecified laterality Qualified Code(s): S81.809A - Unspecified open wound, unspecified lower leg, initial encounter
--- NOTE | 2025-06-18 14:35 | WC ---
PHOTO-LLE 06/17/25
--- NOTE | 2025-06-18 14:43 | WC ---
PHOTO-RLE 06/17/25
== END 2025-06-23 23:59 | disposition home or self-care (01) ==
LOC: WC 09:15
PROVIDERS: PCP Family Medicine Geriatric Medicine; Referring Provider Family Medicine Geriatric Medicine; Visit Provider Nurse Practitioner
DX: L97.902 Non-pressure chronic ulcer of unspecified part of unspecified lower leg with fat layer exposed (principal); Z90.710 Acquired absence of both cervix and uterus; S81.812A Laceration without foreign body, left lower leg, initial encounter; W10.9XXA Fall (on) (from) unspecified stairs and steps, initial encounter; S81.811A Laceration without foreign body, right lower leg, initial encounter
CPT/HCPCS: 11042; 11045; 99213; G0463

== ENCOUNTER → 2025-06-22 | Outpatient (CLI) | payer MEDICARE, OTHER, SELFPAY ==
--- OUTSIDE RECORDS SUMMARY | 2025-02-05 10:29 | XMS RPT_ITS ---
Author Name Auto Generated Organization [facility] Care Team Providers Care Manager Investment Name Role Phone LAURA JNENINGS [facility] Primary [facility] Unavailable JOSEPH TRUJILLO Referring Unavailable JOSEPH TRUJILLO Attending Unavailable JOE SIDDIQI Referring Unavailable MICHAELA LAURA JASON Primary Care Unavailable JOSEPH TRUJILLO Attending Unavailable PROBLEMS DATE TYPE CONDITION / CODE ATTENDING STATUS [facility] 12/04/2023 Active Pseudophakia / Z96.1(ICD-10) JOSEPH TRUJILLO Active [facility] 02/05/2025 Active Dry eye syndrome of bilateral lacrimal glands / H04.123(ICD-10) JOSEPH TRUJILLO Active [facility] 02/05/2025 Active Presbyopia / H52.4(ICD-10) JOSEPH TRUJILLO Active [facility] PROCEDURES No Procedure Records Found RESULTS CNPN Observed: 05/15/2025 12:00 AM Status: COMPLETED Source: [facility] Telephone (HEMASHLEE) KYLERDMITRY Fernandez ([id number]) 1955 F Date Time Provider Department 05/15/25 [place]IRILL ISRAEL During your visit today, we recorded the following information about you: Cassidy Mccracken 05/15/2025 9:45 AM Signed Patient states referral is being sent to office from Dr. Isidro Dallas. Cassidy Mccracken 06/01/2025 9:30 AM Signed Records received per triage. Guillermina Soto LPN 06/01/2025 10:54 AM Signed Spoke with pt. Informed we have not received any records. Pt. States she did not have a fax number to have them send records. Fax number given to pt. She will reach out to pt. To get records faxed. Guillermina Soto SAADIA KeyGuillermina franco FIELD ARTILLERY TARGETING TECHNICIAN 06/02/2025 1:41 PM Signed Message left on voicemail concerning referral. Easing Bruising initially needs to be worked up by her PCP. If her PCP has done a work up for this then we need those records. Instructed pt. To contact our office. SAADIA Nuñez Pamela S FIELD ARTILLERY TARGETING TECHNICIAN 06/02/2025 3:07 PM Signed Spoke with pt. She has not had recent labs that she is aware of. Informed she needs to see her PCP and if he feels she needs a referral he can make that. Pt. Voiced understanding. Guillermina Yadav SAADIA Soto Allergies As of Date: 05/15/2025 Noted Allergy Reaction BEE VENOM PROTEIN (HONEY BEE) 07/06/2021 10 - Anaphylaxis GABAPENTIN 08/24/2021 5 - Intolerance Comments: dizziness ZOLPIDEM 06/04/2019 14 - Other: See Comments Comments: Odd behavior during nighttime hours Date Reviewed: 02/05/2025 Reviewed by: Joseph Trujillo, OD - Fully Assessed Reason for Visit: New Patient [172] Prescriptions as of 06/02/2025 - valACYclovir (VALTREX) 500 mg tablet Take 1 tablet by mouth once daily. - varenicline (TYRVAYA) 0.03 mg/spray nasal spray Use 1 [place] in each nostril every 12 hours. - pantoprazole DR (PROTONIX) 40 mg tablet - dicyclomine (BENTYL) 20 mg tablet Take 20 mg by mouth four times daily as needed. - THERAPEUTIC MULTIVITAMIN TAB Take one(1) tablet daily. - CALTRATE-600 PLUS VITAMIN D3 600 MG-200 UNIT TAB Take one(1) tablet daily. 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 Author Type: PRIMARY CARE MD Type: Progress Notes Filed: 02/05/2025 11:03 Note Text: ASSESSMENT/PLAN: 1. Dry eye syndrome of bilateral lacrimal glands - ICD9: 375.15, ICD10: H04.123 (primary diagnosis) Continue with Genteal tears during the day and Genteal ointment at bedtime. Monitor. 2. Pseudophakia - ICD9: V43.1, ICD10: Z96.1 Implants are clear and centered. Monitor. 3. Presbyopia - ICD9: 367.4, ICD10: H52.4 Updated spectacle prescription, and educated patient to adaptation to new prescription. Return to clinic with changes to vision, otherwise follow up yearly. Joseph Trujillo, PHILLIP February 05, 2025 11:03 AM PROGRESS Observed: 08/08/2024 1:14 PM Status: COMPLETED Source: [facility] HNO ID: [id number] Author: JOSEPH TRUJILLO OD Service: ? Author Type: PRIMARY CARE MD Type: Progress Notes Filed: 08/08/2024 13:17 Note Text: ASSESSMENT/PLAN: 1. 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 Dry eye syndrome of bilateral lacrimal glands - ICD9: 375.15, ICD10: H04.123 Continue with: valACYclovir (VALTREX) 500 mg tablet Take 1 tablet by mouth once daily. Continue: Genteal Gel solution instill 1 drop 4 times a day Left Eye. Genteal Gel ointment at bedtime Left Eye. 3. Pseudophakia - ICD9: V43.1, ICD10: Z96.1 Implants are clear and centered. Monitor. Return to clinic with changes to vision, otherwise follow up 6 months with dilated fundus exam and cornea check. Joseph Trujillo, OD August 08, 2024 1:16 PM ALLERGIES DATE TYPE / CODE NAME / CODE REACTION SEVERITY SOURCE 08/24/2021 DRUG INGREDI/578045 003(SNOMED CT) GABAPENTIN INTOLERANCE [facility] 07/06/2021 DRUG INGREDI/933781 003(SNOMED CT) BEE VENOM PROTEIN (HONEY BEE) ANAPHYLAXIS [facility] 06/04/2019 DRUG INGREDI/730395 003(SNOMED CT) ZOLPIDEM OTHER: SEE C [facility] ENCOUNTERS ADMIT/DISCHARGE ACCOUNT NUMBER ADMITTING ENCOUNTER CLASS LOC ATION SOURCE 02/05[facility]2025[id number] 08/08/2024/ 4 [id number] PAYERS ENCOUNTER GUARANTOR PAYER SUBSCRIBER SOURCE 02/05/2025 Primary Insuranc e:MEDICARE A AND BPolicy Number: [id number] Date:6979-74-36Xgei Name:Pro Fernandez LOWERDOB: [id number] [place] [address] [facility] 02/05/2025 Secondary Insura nce:[facility] AARP SUPPLEMENTPolicy Number: [id number] Date:2281-33-82Qibr Name:Earnest Fernandez LOWERDOB: [id number] [place] [address] [facility] 08/08/2024 Primary Insuranc e:MEDICARE A AND BPolicy Number: [id number] Date:5275-27-73Sjgl Name:Pro SAMANOB: [id number] [place] [address] [facility] 08/08/2024 Secondary Insura nce:[facility] SUPPLEMENTPolicy Number: [id number] Date:8020-54-16Uoeg Name:Earnest SAMANOB: [id number] [address] [facility] [place] [address] [facility]
--- OUTSIDE RECORDS SUMMARY | 2025-02-05 10:29 | XMS RPT_ITS ---
Author Name Auto Generated Organization [facility] Care Team Providers Care Distribution Warehouse Manager Name Role Phone LAURA JENNINGS [facility] Unavailable JOSEPH TRUJILLO Referring Unavailable JOSEPH TRUJILLO Attending Unavailable JOE SIDDIQI Referring Unavailable MICHAELA LAURA JASON Primary Care Unavailable JOSEPH TRUJILOL Attending Unavailable PROBLEMS DATE TYPE CONDITION / CODE ATTENDING STATUS [facility] 12/04/2023 Active Pseudophakia / Z96.1(ICD-10) JOSEPH TRUJILLO Active [facility] 02/05/2025 Active Dry eye syndrome of bilateral lacrimal glands / H04.123(ICD-10) JOSEPH TRUJILLO Active [facility] 02/05/2025 Active Presbyopia / H52.4(ICD-10) JOSEPH TRUJILLO Active [facility] PROCEDURES No Procedure Records Found RESULTS CNPN Observed: 05/15/2025 12:00 AM Status: COMPLETED Source: [facility] Telephone (HEMASHLEE) KYLERDMITRY Fernandez ([id number]) 1955 F Date Time Provider Department 05/15/25 [...] records faxed. Guillermina Soto SAADIA KeyGuillermina franco INFECTION CONTROL NURSE 06/02/2025 1:41 PM Signed Message left on voicemail concerning referral. Easing Bruising initially needs to be worked up by her PCP. If her PCP has done a work up for this then we need those records. Instructed pt. To contact our office. SAADIA Nuñez Pamela S INFECTION CONTROL NURSE 06/02/2025 3:07 PM Signed Spoke with pt. [...] (TYRVAYA) 0.03 mg/spray nasal spray Use 1 [place] in each nostril every 12 hours. - [...] Observed: 02/05/2025 11:02 AM Status: COMPLETED Source: [facility] HNO ID: [id number] Author: JOSEPH TRUJILLO, PHILLIP Service: ? Author Type: PARACHUTE INSPECTOR Type: Progress Notes Filed: 02/05/2025 11:03 Note [...] Observed: 08/08/2024 1:14 PM Status: COMPLETED Source: [facility] HNO ID: [id number] Author: JOSEPH TRUJILLO OD Service: ? Author Type: PARACHUTE INSPECTOR Type: Progress Notes Filed: 08/08/2024 13:17 Note [...] / CODE REACTION SEVERITY SOURCE 08/24/2021 DRUG INGREDI/406486 003(SNOMED CT) GABAPENTIN INTOLERANCE [facility] 07/06/2021 DRUG INGREDI/637867 003(SNOMED CT) BEE VENOM PROTEIN (HONEY BEE) ANAPHYLAXIS [facility] 06/04/2019 DRUG INGREDI/454705 003(SNOMED CT) ZOLPIDEM OTHER: SEE C [facility] ENCOUNTERS ADMIT/DISCHARGE ACCOUNT NUMBER ADMITTING ENCOUNTER CLASS LOC ATION SOURCE 02/05/2025/ 5 [id number] [facility] 08/08/2024/ 4 [id number] [facility] PAYERS ENCOUNTER GUARANTOR PAYER SUBSCRIBER SOURCE 02/05/2025 Primary Insuranc e:MEDICARE A AND BPolicy Number: [id number] Date:6704-34-96Fhmp Name:Pro Fernandez LOWERDOB: [id number] [place] [address] [facility] 02/05/2025 Secondary Insura nce:[facility] AARP SUPPLEMENTPolicy Number: [id number] Date:5495-08-07Rftv Name:Earnest Fernandez LOWERDOB: [id number] [place] [address] [facility] 08/08/2024 Primary Insuranc e:MEDICARE A AND BPolicy Number: [id number] Date:5417-29-49Nzof Name:Pro SAMANOB: [id number] [place] [address] [facility] 08/08/2024 Secondary Insura nce:[facility] SUPPLEMENTPolicy Number: [id number] Date:9399-66-37Rcio Name:Earnest SAMANOB: [id number] [address] [place] [address] [facility]
[2025-06-22 16:59] LABS: Hematocrit 35.5 % (37-47); Hemoglobin 12.2 g/dL (12.0-15.0); Immature Granulocytes Count 0.020 X10^3/uL (0.0-0.0); Mean Corp Hgb Conc 34.4 g/dL (32-36); Mean Corpuscular Volume 94.7 fL (81-99); Mean Platelet Vol. 10.3 fl (6.2-12.0); NRBC Flagged by Analyzer 0 % (0-5); Platelet Count 285 K/mm3 (150-450); RBC Distribution Width CV 13.0 % (11.6-14.6); RBC Distribution Width SD 44.7 fl (35.1-43.9); Red Blood Count 3.75 M/mm3 (4.2-5.4); White Blood Count 7.7 K/mm3 (4.4-11.0)
[2025-06-22 17:13] LABS: Prothrombin Time (Protime)PT. 12.9 SECONDS (11.7-14.9)
[2025-06-22 17:14] LABS: Partial Thromboplast Time 32.7 Seconds (24.1-36.2)
[2025-06-23 00:47] LABS: Xtra Tube Kwok EXTRA TUBE
== END | disposition home or self-care (01) ==
LOC: POLAB3 16:38
PROVIDERS: PCP Family Medicine Geriatric Medicine; Visit Provider Family Medicine Geriatric Medicine
DX: E11.65 Type 2 diabetes mellitus with hyperglycemia (principal); D68.00 Von Willebrand disease, unspecified; R53.83 Other fatigue; R23.3 Spontaneous ecchymoses
CPT/HCPCS: 36415; 83036; 85025; 85610; 85730

== ENCOUNTER 2025-07-08 09:15 | Outpatient (RCR) | payer MEDICARE, OTHER, SELFPAY ==
[2025-06-24 09:56] VITALS: BP 108/73; PULSE 83; RESP 16; TEMP 36.9
--- NOTE | 2025-06-24 10:42 | PN.PCM_ITS ---
History of Present Illness Date of Service: 06/24/25 Chief Complaint: Bilateral mehta avulsion lacerations History of Wound: 69-year-old white female that was walking up her steps to the porch and missed the top step and fell forward causing avulsion laceration to bilateral lower legs anterior mehta area. This was seen by her family doctor and given a shot of Rocephin and then she was given cephalexin and doxycycline. She has been using antibiotic ointments on it since it occurred last Sunday. She also notes that she has been on Celebrex for a long period of time and when she decided it was thinning her skin too much and she was getting too many skin tears and staff she quit that medication after couple years. Progress of Wound: Patient has been approved for EpiFix for the left leg which had positive depth V-shaped wound. The right leg was kind of a cluster and the inferior wound has healed the upper wound is still there with a slight depth. All measurements are much smaller the skin surrounding the wounds are supple and flesh-colored no sign of any redness or erythema or infection. So we will apply #1 to the left leg Subjective Subjective Patient is excited to get the first 1 was explained how to take care of it and how not to get it wet and she already bought her bags to put over her legs so she is good. Objective Data Objective Data Measurements today are smaller healing very well no sign of infection and still has positive depth on the left leg though we will continue using the EpiFix today for the first time. Vital Signs: Vital Signs Temp Pulse Resp BP 98.4 F 83 16 108/73 06/24/25 09:56 06/24/25 09:56 06/24/25 09:56 06/24/25 09:56 Lab / Micro Data Attestation: I reviewed the patient's lab results. Physical Exam Const oriented x3 General Appearance: cooperative Exam Limitations: no limitations HEENT normocephalic Face and Sinus: normal facial exam Eyes PERRL Neck full ROM General: normal visual inspection Resp normal respiratory effort Effort and Inspection: able to speak in complete sentences Auscultation: clear to auscultation bilaterally Cardio regular rate and regular rhythm Palpation: normal PMI Rate: regular rate Rhythm: regular rhythm GI Palpation: soft and no hepatosplenomegaly Back/Spine Cervical Spine: cervical ROM normal Thoracic Spine / Upper Back: normal to inspection Lumbar Spine / Lower Back: normal to inspection Extremity normal to inspection General Extremity: normal exam except as noted Skin Wounds: wounds noted Wound Narrative: Bilateral mehta avulsion lacerations with skin partially well-approximated some open areas still apparent. No sign of infection noted Neuro oriented x3 Psych Appearance: grossly normal Speech: normal speech Thought Content: normal thought content Judgement: judgement good Debridement Note Debridement Note Wound debrided: Right mehta trauma Type of Debridement: Excisional debridement Anesthesia Used: 5% Lidocaine Gel Depth: in the subcutaneous layer Percentage of wound debrided: 100 Instrument Used: 3mm curette and - (Nippers) Tissue Removed: Fibrin Severity: Limited To Skin Breakdown Amount of bleeding with debridement: Mild Bleeding Controlled with: Compression and gauze Patient tolerated procedure: Patient tolerated procedure well Post-Debridement Measurements and Additional Note: Post-Debridement Measurements/Treatment - Nurse 1 - General Ulcer Assessment Start: 06/24/25 09:56 Freq: Status: Active Protocol: LILIANA.ROSENDA Activity Type Activity Date Activity User E-sign Co-sign Detail Recorded Client Recorded Date Recorded By Document 06/24/25 09:56 [id number] 06/24/25 10:03 CP 06/24/25 09:56 - Today's Visit Information Type of service Follow-up Visit (Physician/CAPABILITY LEAD ) Arrival Mode Ambulatory Patient Identification Verified (Name & Yes ) Vital Signs Temperature (97.8 F-99.1 F) 98.4 F Temperature Source Temporal Pulse Rate (60-100) 83 Pulse Location Monitor Respiratory Rate (12-18) 16 Respiratory rate source Observation Blood Pressure (90/60-120/80) 108/73 Blood Pressure Mean (mm Hg) 84 Source Monitor Position Sitting Blood Pressure Location Left Arm History Since Last Visit- (Skip if this is Patient's initial visit) Have you changed medications since your No last visit? Any new allergies or adverse reactions No Had a fall/change in ADL's that may No increase risk of falls Signs or symptoms of abuse and/or No neglect since last visit Have you been in the hospital since your No last visit? Has dressing in place as prescribed Yes Has compression in place as prescribed Yes Has offloadiing in place as prescribed N/A Experienced any changes in pain level or No management Pain Scale: 0-10 Numeric Is Patient Pain Free? Yes - Nurse 1 - General Ulcer Measurement Start: 06/24/25 09:56 Freq: Status: Active Protocol: Activity Type Activity Date Activity User E-sign Co-sign Detail Recorded Client Recorded Date Recorded By Document 06/24/25 09:56 CP [id number] 06/24/25 10:03 CP 06/24/25 09:56 Wound Center Nurse 1 3. RLE -Current Size (cm) - Length 0.1 -Current Size (cm) - Width 0.1 -Current Size (cm) - Depth 0.1 -Total Square Cm 0.01 #4 RIGHT LE SUP -Current Size (cm) - Length 0.7 -Current Size (cm) - Width 0.4 -Current Size (cm) - Depth 0.1 -Total Square Cm 0.28 -Date of Last Picture (Recall this 06/24/25 field) -Photo Taken Yes -Exudate Amt Small -Wound Margin Flat & Intact -Granulation Amt Large (67-100%) -Granulation Quality Red -Slough/Fibrin Yes -Necrosis Amt Small (1-33%) -Necrotic Tissue Type Adherent Slough -Structure Exposed N/A -Texture (Mariaa-wound Skin Appearance) No Abnormality -Moisture (Mariaa-wound Skin Appearance) No Abnormality -Color (Mariaa-wound Skin Appearance) No Abnormality -Temperature (Mariaa-wound Skin No Abnormality Appearance) (Pt Warm) -Tenderness on Palpation (Mariaa-wound No Skin Appearance) -Ulcer Cleansing Soap and Water -Foul Odor after Cleansing No -Anesthetic Used 5% Lidocaine Gel 2. LLE -Current Size (cm) - Length 2 -Current Size (cm) - Width 2.2 -Current Size (cm) - Depth 0.1 -Total Square Cm 4.4 -Date of Last Picture (Recall this 06/24/25 field) -Photo Taken Yes -Exudate Amt Small -Granulation Amt Large (67-100%) -Granulation Quality [place] -Structure Exposed N/A -Texture (Mariaa-wound Skin Appearance) No Abnormality -Moisture (Mariaa-wound Skin Appearance) No Abnormality -Color (Mariaa-wound Skin Appearance) No Abnormality -Temperature (Mariaa-wound Skin No Abnormality Appearance) (Pt Warm) -Ulcer Cleansing Soap and Water -Anesthetic Used 5% Lidocaine Gel Right Calf (cm) 28.2 Right Ankle (cm) 18 Left Calf (cm) 28.6 Left Ankle (cm) 17.8 WC - Nurse 2 - General Ulcer CM Notes Start: 06/24/25 09:56 Freq: Status: Active Protocol: Activity Type Activity Date Activity User E-sign Co-sign Detail Recorded Client Recorded Date Recorded By Document 06/24/25 10:27 DS [id number] 06/24/25 10:31 DS 06/24/25 10:27 Wound Center Nurse 2 3. RLE -Time 10:30 -Correct Patient Yes -Correct Side, Site, Position Yes -Procedure Performed No -Wound/Ulcer Outcome Healed- Epithelialized #4 RIGHT LE SUP -Time 10:30 -Correct Patient Yes -Correct Side, Site, Position Yes -Correct Procedure Yes -Procedure Performed Yes -Type of Procedure Debridement -Clinical Debridement Subcutaneous -Tissue Removed Subcutaneous -Post Debridement (cm) - Length 0.9 -Post Debridement (cm) - Width 0.6 -Post Debridement (cm) - Depth 0.1 -Total Square (Post) (cm) 0.54 -Area of Debridement (cm) - Length 0.9 -Area of Debridement (cm) - Width 0.6 -Total Square (Area) (cm) 0.54 -Tunneling No -Undermining/Tunneling No -Circular Undermining No -Wound/Ulcer Outcome Not Healed -Ulcer Cleansing Rinsed/ Irrigated with Saline -Foul Odor after Cleansing No -Bioengineered Tissue No -Bleeding Controlled with Pressure -Treatment Response Procedure Tolerated Well -Debridement - Subq, 1st 20sq cm Yes 2. LLE -Time 10:27 -Correct Patient Yes -Correct Side, Site, Position Yes -Correct Procedure Yes -Procedure Performed Yes -Type of Procedure Debridement -Clinical Debridement Subcutaneous -Tissue Removed Subcutaneous -Post Debridement (cm) - Length 2.3 -Post Debridement (cm) - Width 0.7 -Post Debridement (cm) - Depth 0.2 -Total Square (Post) (cm) 1.61 -Area of Debridement (cm) - Length 2.3 -Area of Debridement (cm) - Width 0.7 -Total Square (Area) (cm) 1.61 -Tunneling No -Undermining/Tunneling No -Circular Undermining No -Wound/Ulcer Outcome Not Healed -Ulcer Cleansing Rinsed/ Irrigated with Saline -Foul Odor after Cleansing No -Bioengineered Tissue Yes -Type of Bioengineered Tissue Epifix 18mm Disc -Expiration Date 01/22/30 -Product Lot Number [id number] -Percent Used 100 -Lot number of Saline Used [id number] -Bleeding Controlled with Pressure -Treatment Response Procedure Tolerated Well -Debridement - Subq, 1st 20sq cm No -Apply Skin Sub - 1st 25 sq cm - Legs 1 -Epifix 18mm Disc Application 1-4 3 Pain Scale: 0-10 Numeric Is Patient Pain Free? Yes Additional Wound Wound debrided: Left mehta avulsion laceration trauma Type of Debridement: Excisional debridement Anesthesia Used: 5% Lidocaine Gel Depth: in the subcutaneous layer Percentage of wound debrided: 100 Instrument Used: 3mm curette Tissue Removed: Fibrin and devitalized tissue Severity: Fat Layer Exposed Amount of bleeding with debridement: Mild Bleeding Controlled with: Compression and gauze Patient tolerated procedure: Patient tolerated procedure well Assessment/Plan Assessment/Plan (1) Ulcer of lower extremity with fat layer exposed: CODE(S): L97.902 - Non-pressure chronic ulcer of unspecified part of unspecified lower leg with fat layer exposed QUALIFIERS: Laterality: unspecified laterality Qualified Code(s): L97.902 - Non-pressure chronic ulcer of unspecified part of unspecified lower leg with fat layer exposed PLAN: Left lower leg EpiFix #1 applied with wound veil and Steri-Strips gauze and absorbent dressing over top. Patient was instructed not to get it wet and to use a cast bag for showering which she has gotten. Continue double layer Tubigrip to bilateral lower legs. 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
--- NOTE | 2025-06-25 09:11 | WC ---
PHOTO 06/24/25
--- NOTE | 2025-06-25 09:17 | WC ---
PHOTO-RIGHT LE INF 06/24/25
--- NOTE | 2025-06-25 09:20 | WC ---
PHOTO-RIGHT SUP LE 06/24/25
[2025-07-01 09:34] VITALS: BP 135/80; PULSE 71; RESP 14; TEMP 36.2
--- NOTE | 2025-07-01 11:47 | PN.PCM_ITS ---
History of Present Illness Date of Service: 07/01/25 Chief Complaint: Bilateral mehta avulsion lacerations History of Wound: 69-year-old white female that was walking up her steps to the porch and missed the top step and fell forward causing avulsion laceration to bilateral lower legs anterior mehta area. This was seen by her family doctor and given a shot of Rocephin and then she was given cephalexin and doxycycline. She has been using antibiotic ointments on it since it occurred last Sunday. She also notes that she has been on Celebrex for a long period of time and when she decided it was thinning her skin too much and she was getting too many skin tears and staff she quit that medication after couple years. Progress of Wound: Patient has been approved for EpiFix for the left leg which had positive depth V-shaped wound. Left leg is very small superficial still slightly open and we might change her over to Promogran for a week and discharge her next week. The right leg is healed. All measurements are much smaller the skin surrounding the wounds are supple and flesh-colored no sign of any redness or erythema or infection. We will discontinue the EpiFix Subjective Subjective Patient is very pleased with outcomes Objective Data Objective Data As stated above no sign of infection healing well right leg done left leg just has a very superficial area that I just want 1 more week of maybe using Promogran on and that should heal her up. Vital Signs: Vital Signs Temp Pulse Resp BP 97.1 F L 71 14 135/80 H 07/01/25 09:34 07/01/25 09:34 07/01/25 09:34 07/01/25 09:34 Lab / Micro Data Attestation: I reviewed the patient's lab results. Physical Exam Const oriented x3 General Appearance: cooperative Exam Limitations: no limitations HEENT normocephalic Face and Sinus: normal facial exam Eyes PERRL Neck full ROM General: normal visual inspection Resp normal respiratory effort Effort and Inspection: able to speak in complete sentences Auscultation: clear to auscultation bilaterally Cardio regular rate and regular rhythm Palpation: normal PMI Rate: regular rate Rhythm: regular rhythm GI Palpation: soft and no hepatosplenomegaly Back/Spine Cervical Spine: cervical ROM normal Thoracic Spine / Upper Back: normal to inspection Lumbar Spine / Lower Back: normal to inspection Extremity normal to inspection General Extremity: normal exam except as noted Skin Wounds: wounds noted Wound Narrative: Bilateral mehta avulsion lacerations with skin partially well-approximated some open areas still apparent. No sign of infection noted Neuro oriented x3 Psych Appearance: grossly normal Speech: normal speech Thought Content: normal thought content Judgement: judgement good Debridement Note Debridement Note No debridement was completed: No debridement was completed today Post-Debridement Measurements and Additional Note: Post-Debridement Measurements/Treatment WC - Nurse 1 - General Ulcer Assessment Start: 06/24/25 09:56 Freq: Status: Active Protocol: PHILIP Activity Type Activity Date Activity User E-sign Co-sign Detail Recorded Client Recorded Date Recorded By Document 06/24/25 09:56 CP [id number] 06/24/25 10:03 CP Document 07/01/25 09:34 ML [id number] 07/01/25 09:41 ML 06/24/25 07/01/25 09:56 09:34 WC - Today's Visit Information Type of service Follow-up Visit Follow-up Visit (Physician/CASE CONSULTANT (Physician/CASE CONSULTANT ) ) Arrival Mode Ambulatory Ambulatory Transfer Assistance None Patient Identification Verified (Name & Yes Yes ) Patient Requires Transmission-Based No Precautions Vital Signs Temperature (97.8 F-99.1 F) 98.4 F 97.1 F L Temperature Source Temporal Temporal Pulse Rate (60-100) 83 71 Pulse Location Monitor Monitor Respiratory Rate (12-18) 16 14 Respiratory rate source Observation Observation Blood Pressure (90/60-120/80) 108/73 135/80 H Blood Pressure Mean (mm Hg) 84 98 Source Monitor Monitor Position Sitting Sitting Blood Pressure Location Left Arm Right Arm History Since Last Visit- (Skip if this is Patient's initial visit) Have you changed medications since your No No last visit? Any new allergies or adverse reactions No No Had a fall/change in ADL's that may No No increase risk of falls Signs or symptoms of abuse and/or No neglect since last visit Have you been in the hospital since your No No last visit? Has dressing in place as prescribed Yes Yes Has compression in place as prescribed Yes Yes Has offloadiing in place as prescribed N/A Yes Experienced any changes in pain level or No No management Pain Scale: 0-10 Numeric Is Patient Pain Free? Yes Yes LILIANA - Nurse 1 - General Ulcer Measurement Start: 06/24/25 09:56 Freq: Status: Active Protocol: Activity Type Activity Date Activity User E-sign Co-sign Detail Recorded Client Recorded Date Recorded By Document 06/24/25 09:56 CP [id number] 06/24/25 10:03 CP Document 07/01/25 09:34 ML [id number] 07/01/25 09:41 ML 06/24/25 07/01/25 09:56 09:34 Wound Center Nurse 1 #4 RIGHT LE SUP -Current Size (cm) - Length 0.7 0.1 -Current Size (cm) - Width 0.4 0.1 -Current Size (cm) - Depth 0.1 0.1 -Total Square Cm 0.28 0.01 -Date of Last Picture (Recall this 06/24/25 field) -Photo Taken Yes -Exudate Amt Small Small -Exudate Type Serosanguineous -Wound Margin Flat & Intact -Granulation Amt Large (67-100%) Small (1-33%) -Granulation Quality Red -Slough/Fibrin Yes -Necrosis Amt Small (1-33%) Small (1-33%) -Necrotic Tissue Type Adherent Slough Adherent Slough -Structure Exposed N/A -Texture (Mariaa-wound Skin Appearance) No Abnormality Assessed -Moisture (Mariaa-wound Skin Appearance) No Abnormality Assessed -Color (Mariaa-wound Skin Appearance) No Abnormality Assessed -Temperature (Mariaa-wound Skin No Abnormality No Abnormality Appearance) (Pt Warm) (Pt Warm) -Tenderness on Palpation (Mariaa-wound No Skin Appearance) -Ulcer Cleansing Soap and Water -Foul Odor after Cleansing No No -Anesthetic Used 5% Lidocaine 5% Lidocaine Gel Gel 3. RLE -Current Size (cm) - Length 0.1 -Current Size (cm) - Width 0.1 -Current Size (cm) - Depth 0.1 -Total Square Cm 0.01 2. LLE -Current Size (cm) - Length 2 0.1 -Current Size (cm) - Width 2.2 0.1 -Current Size (cm) - Depth 0.1 0.1 -Total Square Cm 4.4 0.01 -Date of Last Picture (Recall this 06/24/25 field) -Photo Taken Yes -Exudate Amt Small Small -Granulation Amt Large (67-100%) Small (1-33%) -Granulation Quality [place] -Slough/Fibrin Yes -Necrosis Amt Small (1-33%) -Necrotic Tissue Type Adherent Slough -Structure Exposed N/A -Texture (Mariaa-wound Skin Appearance) No Abnormality Assessed -Moisture (Mariaa-wound Skin Appearance) No Abnormality Assessed -Color (Mariaa-wound Skin Appearance) No Abnormality Assessed -Temperature (Mariaa-wound Skin No Abnormality No Abnormality Appearance) (Pt Warm) (Pt Warm) -Tenderness on Palpation (Mraiaa-wound Yes Skin Appearance) -Ulcer Cleansing Soap and Water Soap and Water -Foul Odor after Cleansing No -Anesthetic Used 5% Lidocaine 5% Lidocaine Gel Gel Right Calf (cm) 28.2 Right Ankle (cm) 18 Left Calf (cm) 28.6 Left Ankle (cm) 17.8 WC - Nurse 2 - General Ulcer CM Notes Start: 06/24/25 09:56 Freq: Status: Active Protocol: Activity Type Activity Date Activity User E-sign Co-sign Detail Recorded Client Recorded Date Recorded By Document 06/24/25 10:27 DS [id number] 06/24/25 10:31 DS Document 07/01/25 09:55 DS [id number] 07/01/25 09:57 DS 06/24/25 07/01/25 10:27 09:55 Wound Center Nurse 2 #4 RIGHT LE SUP -Time 10:30 09:55 -Correct Patient Yes Yes -Correct Side, Site, Position Yes Yes -Correct Procedure Yes -Procedure Performed Yes No -Type of Procedure Debridement -Clinical Debridement Subcutaneous -Tissue Removed Subcutaneous -Post Debridement (cm) - Length 0.9 -Post Debridement (cm) - Width 0.6 -Post Debridement (cm) - Depth 0.1 -Total Square (Post) (cm) 0.54 -Area of Debridement (cm) - Length 0.9 -Area of Debridement (cm) - Width 0.6 -Total Square (Area) (cm) 0.54 -Tunneling No -Undermining/Tunneling No -Circular Undermining No -Wound/Ulcer Outcome Not Healed Healed- Epithelialized -Ulcer Cleansing Rinsed/ Irrigated with Saline -Foul Odor after Cleansing No -Bioengineered Tissue No -Bleeding Controlled with Pressure -Treatment Response Procedure Tolerated Well -Debridement - Subq, 1st 20sq cm Yes 3. RLE -Time 10:30 -Correct Patient Yes -Correct Side, Site, Position Yes -Procedure Performed No -Wound/Ulcer Outcome Healed- Epithelialized 2. LLE -Time 10:27 09:56 -Correct Patient Yes Yes -Correct Side, Site, Position Yes Yes -Correct Procedure Yes -Procedure Performed Yes No -Type of Procedure Debridement -Clinical Debridement Subcutaneous -Tissue Removed Subcutaneous -Post Debridement (cm) - Length 2.3 1.0 -Post Debridement (cm) - Width 0.7 0.3 -Post Debridement (cm) - Depth 0.2 0.1 -Total Square (Post) (cm) 1.61 0.30 -Area of Debridement (cm) - Length 2.3 1.0 -Area of Debridement (cm) - Width 0.7 0.3 -Total Square (Area) (cm) 1.61 0.30 -Tunneling No No -Undermining/Tunneling No No -Circular Undermining No No -Wound/Ulcer Outcome Not Healed Not Healed -Ulcer Cleansing Rinsed/ Irrigated with Saline -Foul Odor after Cleansing No -Bioengineered Tissue Yes -Type of Bioengineered Tissue Epifix 18mm Disc -Expiration Date 01/22/30 -Product Lot Number [id number] -Percent Used 100 -Lot number of Saline Used [id number] -Bleeding Controlled with Pressure -Treatment Response Procedure Tolerated Well -Debridement - Subq, 1st 20sq cm No -Apply Skin Sub - 1st 25 sq cm - Legs 1 -Epifix 18mm Disc Application 1-4 3 Pain Scale: 0-10 Numeric Is Patient Pain Free? Yes Yes WC - Nurse 3 - General Ulcer D/C NN Start: 06/24/25 09:56 Freq: Status: Active Protocol: Activity Type Activity Date Activity User E-sign Co-sign Detail Recorded Client Recorded Date Recorded By Document 06/24/25 10:48 CP [id number] 06/24/25 10:49 CP Document 07/01/25 10:10 ML [id number] 07/01/25 10:11 ML 06/24/25 07/01/25 10:48 10:10 Wound Care Center Nurse 3 #4 RIGHT LE SUP -Primary Dressing Covered/Secured with Dry Gauze & Roll Gauze 2. LLE -Ulcer Cleansing Rinsed/ Irrigated with Saline -Primary Dressing Applied Promogran -Primary Dressing Covered/Secured with Dry Gauze & Dry Gauze,Dry Roll Gauze Gauze & Roll Gauze,Secured with Tape -Promogran 1 BLE -Tubular Bandage Double Layer Single Layer -Size of Tubigrip Used Size D Size D -Size D ($) 4 1 Pain Scale: 0-10 Numeric Is Patient Pain Free? Yes Yes WC - Visit Discharge Discharge Condition Stable Ambulatory Status Ambulatory Transportation Private Auto Clinical Summary of Care Provided Yes Assessment/Plan Assessment/Plan (1) Ulcer of lower extremity with fat layer exposed: CODE(S): L97.902 - Non-pressure chronic ulcer of unspecified part of unspecified lower leg with fat layer exposed QUALIFIERS: Laterality: unspecified laterality Qualified Code(s): L97.902 - Non-pressure chronic ulcer of unspecified part of unspecified lower leg with fat layer exposed PLAN: Promogran to the very superficial open area moistened and cover with a gauze dressing every day Discontinue the EpiFix patient is pretty much healed except for the top layer skin. Continue double layer Tubigrip to bilateral lower legs. Patient is to follow-up in 1 week (2) Open wound of lower extremity without complication: CODE(S): S81.809A - Unspecified open wound, unspecified lower leg, initial encounter QUALIFIERS: Encounter type: initial encounter Laterality: unspecified laterality Qualified Code(s): S81.809A - Unspecified open wound, unspecified lower leg, initial encounter (3) 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 PLAN: Right leg healed patient is no longer needing to do dressing changes
--- NOTE | 2025-07-02 09:17 | WC ---
PHOTO-RIGHT LOWER SUPERIOR JAEGER 07/01/25
--- NOTE | 2025-07-02 09:21 | WC ---
PHOTO-LLE 07/01/25
[2025-07-08 09:50] VITALS: BP 124/63; PULSE 69; RESP 18; TEMP 36.5
--- NOTE | 2025-07-08 10:27 | PN.PCM_ITS ---
History of Present Illness Date of Service: 07/08/25 Chief Complaint: Bilateral mehta avulsion lacerations History of Wound: 69-year-old white female that was walking up her steps to the porch and missed the top step and fell forward causing avulsion laceration to bilateral lower legs anterior mehta area. This was seen by her family doctor and given a shot of Rocephin and then she was given cephalexin and doxycycline. She has been using antibiotic ointments on it since it occurred last Sunday. She also notes that she has been on Celebrex for a long period of time and when she decided it was thinning her skin too much and she was getting too many skin tears and staff she quit that medication after couple years. Progress of Wound: Left lower leg healed and patient will be discharged from the wound center and she can follow-up as needed no dressing is needed Subjective Subjective Patient is very pleased with outcomes Objective Data Objective Data Skin is well-approximated and there is no openings no sign of infection it is nice flesh color blending well from where the huge hole was that was in her leg. Vital Signs: Vital Signs Temp Pulse Resp BP 97.7 F L 69 18 124/63 H 07/08/25 09:50 07/08/25 09:50 07/08/25 09:50 07/08/25 09:50 Physical Exam Const oriented x3 General Appearance: cooperative Exam Limitations: no limitations HEENT normocephalic Face and Sinus: normal facial exam Eyes PERRL Neck full ROM General: normal visual inspection Resp normal respiratory effort Effort and Inspection: able to speak in complete sentences Auscultation: clear to auscultation bilaterally Cardio regular rate and regular rhythm Palpation: normal PMI Rate: regular rate Rhythm: regular rhythm GI Palpation: soft and no hepatosplenomegaly Back/Spine Cervical Spine: cervical ROM normal Thoracic Spine / Upper Back: normal to inspection Lumbar Spine / Lower Back: normal to inspection Extremity normal to inspection General Extremity: normal exam except as noted Skin Wounds: wounds noted Wound Narrative: Bilateral mehta avulsion lacerations with skin partially well-approximated some open areas still apparent. No sign of infection noted Neuro oriented x3 Psych Appearance: grossly normal Speech: normal speech Thought Content: normal thought content Judgement: judgement good Debridement Note Debridement Note No debridement was completed: No debridement was completed today Assessment/Plan Assessment/Plan (1) Ulcer of lower extremity with fat layer exposed: CODE(S): L97.902 - Non-pressure chronic ulcer of unspecified part of unspecified lower leg with fat layer exposed QUALIFIERS: Laterality: unspecified laterality Qualified Code(s): L97.902 - Non-pressure chronic ulcer of unspecified part of unspecified lower leg with fat layer exposed PLAN: Discharge from the wound center and she can follow-up as needed (2) Open wound of lower extremity without complication: CODE(S): S81.809A - Unspecified open wound, unspecified lower leg, initial encounter QUALIFIERS: Encounter type: initial encounter Laterality: uns pecified laterality Qualified Code(s): S81.809A - Unspecified open wound, unspecified lower leg, initial encounter (3) 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
--- NOTE | 2025-07-09 09:48 | WC ---
PHOTO-LLE 07/08/25
== END 2025-07-08 10:26 | disposition home or self-care (01) ==
LOC: WC 09:15
PROVIDERS: PCP Family Medicine Geriatric Medicine; Referring Provider Family Medicine Geriatric Medicine; Visit Provider Nurse Practitioner
DX: L97.902 Non-pressure chronic ulcer of unspecified part of unspecified lower leg with fat layer exposed (principal); S81.811A Laceration without foreign body, right lower leg, initial encounter; S81.812A Laceration without foreign body, left lower leg, initial encounter; W10.9XXA Fall (on) (from) unspecified stairs and steps, initial encounter
CPT/HCPCS: 11042; 15271; 99212; 99213; Q4186; G0463